=== PATIENT | female | born 1965 | race Caucasian/White ===

== ENCOUNTER → 2017-03-30 11:00 | Outpatient (CLI) | payer OTHER, SELFPAY ==
[2017-03-30 12:27] LABS: Color, Urine Yellow (Yellow); Glucose, Dipstick 1000 mg/dl (Normal); Leukocyte Esterase-Dipstick Negative /ul (Negative); Nitrite-Dipstick Negative (Negative); Occult Blood-Urine 10 /ul (Negative); Protein-Dipstick Negative (Negative); Urine Bilirubin Dipstick Negative (Negative); Urine Clarity Clear (Clear); Urine Urobilinogen Normal (Normal)
[2017-03-30 12:29] LABS: Ketone-Dipstick 150 mg/dl (Negative)
[2017-03-30 12:30] LABS: Absolute Lymphocyte Count 1.77 X10^3/ul (0.83-4.51); Absolute Neutrophil Count 6.1 X10^3/uL (2.0-7.7); Basophil# 0.07 X10^3/uL; Basophil% 0.8 % (0-1); Eosinophils% 4.4 % (0-5); Hematocrit 41.3 % (37-47); Hemoglobin 13.8 g/dl (12.0-15.0); Lymphocyte # 1.77 X10^3/ul (4.0); Lymphocyte % 19.5 % (19-41); Mean Corp Hgb Conc 33.4 g/gl (32-36); Mean Corpuscular Hgb 29.7 pg (27.0-32.0); Mean Corpuscular Volume 88.8 fL (81-99); Mean Platelet Vol. 10.5 fl (6.2-12.0); Monocyte# 0.67 X10^3/uL; Monocyte% 7.4 % (0-10); Neutrophil % 67.3 % (47-70); Platelet Count 273 K/mm3 (150-450); RBC Distribution Width CV 14.1 % (11.6-14.6); Red Blood Count 4.65 M/mm3 (4.2-5.4); White Blood Count 9.1 K/mm3 (4.4-11.0)
[2017-03-30 12:41] LABS: Hemoglobin A1c 11.8 % (4.2-6.3)
[2017-03-30 12:44] LABS: POSITIVE COUNT NO; POSITIVE DIFFERENTIAL NO; POSITIVE MORPHOLOGY NO
[2017-03-30 12:58] LABS: ALB/GLOB Ratio 0.9 RATIO (0.9-2.4); AST(SGOT) 23 U/L (15-37); Alanine Aminotransfer ALT/SGPT 44 U/L (13-56); Albumin, Serum 3.2 g/dL (3.2-5.0); Alkaline Phosphatase 127 U/L (45-117); Anion Gap 10 (5-15); BUN 15 mg/dL (7-18); BUN/Creat Ratio 24.7 RATIO (10-20); Calcium,Total 8.4 mg/dL (8.5-10.1); Chloride 96 mmol/L (98-107); Cholesterol 147 mg/dL (200); Creatinine, Serum 0.61 mg/dL (0.55-1.02); EST Glomerular Filtration Rate 110 mL/min (>60); Est Glom Filt Rate - Afr Amer 133 mL/min (>60); Globulin 3.6 g/dL (2.2-4.2); Glucose 294 mg/dL (74-106); High Density Lipoprotein 24 mg/dL; Potassium 3.8 mmol/L (3.5-5.1); Protein, Total 6.8 g/dL (6.4-8.2); Sodium Level 134 mmol/L (136-145); Triglycerides 574 mg/dL
== END ==
DX: Z00.00 Encounter for general adult medical examination without abnormal findings (principal)
CPT/HCPCS: 80053; 80061; 81002; 83036; 84443; 85025

== ENCOUNTER → 2017-04-16 12:09 | Outpatient (CLI) | payer OTHER, SELFPAY ==
--- NOTE | 2017-04-16 12:15 | US_ITS ---
STUDY: ULTRASOUND OF THE FEMALE PELVIS - COMPLETE REASON FOR EXAM: Female, 51 years old. Menorrhalgia LMP: April 09, 2017 TECHNIQUE: Transabdominal and endovaginal TECHNICAL QUALITY: Adequate. COMPARISON: None. FINDINGS: The uterus is anteverted and is in a midline position. The uterus measures 9.8 x 5.6 x 5.2 cm. Normal uterine cervix. The endometrium measures 7.4 mm in thickness, and is hyperechoic. There is no demonstrated endometrial mass. Trace lower uterine endometrial fluid. There is a probable 1.7 x 0.9 cm posterior fibroid. The patient does not have an I.U.D. The ovaries are not visualized. There is no fluid in the cul-de-sac. The pre void volume of the bladder was 155 ml. US/Transvaginal Non- IMPRESSION: Posterior small uterine fibroid. Trace lower uterine endometrial fluid. Electronically Signed: Taras Desai DO at 23:27 EDT Tel [phone], Service support ,
== END ==
DX: N92.0 Excessive and frequent menstruation with regular cycle (principal)
CPT/HCPCS: 76830

== ENCOUNTER → 2017-11-16 12:11 | Outpatient (CLI) | payer OTHER, SELFPAY ==
[2017-11-16 14:29] LABS: ALB/GLOB Ratio 0.9 RATIO (0.9-2.4); AST(SGOT) 19 U/L (15-37); Alanine Aminotransfer ALT/SGPT 44 U/L (13-56); Albumin, Serum 3.8 g/dL (3.2-5.0); Alkaline Phosphatase 81 U/L (45-117); Anion Gap 10 (5-15); BUN 16 mg/dL (7-18); BUN/Creat Ratio 20.8 RATIO (10-20); Calcium,Total 9.2 mg/dL (8.5-10.1); Chloride 105 mmol/L (98-107); Cholesterol 203 mg/dL (200); Creatinine, Serum 0.77 mg/dL (0.55-1.02); EST Glomerular Filtration Rate 84 mL/min (>60); Est Glom Filt Rate - Afr Amer 102 mL/min (>60); Globulin 4.1 g/dL (2.2-4.2); Glucose 126 mg/dL (74-106); High Density Lipoprotein 39 mg/dL; Potassium 3.7 mmol/L (3.5-5.1); Protein, Total 7.9 g/dL (6.4-8.2); Sodium Level 138 mmol/L (136-145); Triglycerides 217 mg/dL; Very Low Density Lipoprotein 43 mg/dL (5-40)
[2017-11-16 14:32] LABS: Hemoglobin A1c 6.6 % (4.2-6.3)
== END ==
PROVIDERS: Referring Provider Family Medicine; Visit Provider Family Medicine
DX: I10 Essential (primary) hypertension (principal); E11.65 Type 2 diabetes mellitus with hyperglycemia
CPT/HCPCS: 36415; 80053; 80061; 83036

== ENCOUNTER → 2017-12-12 17:04 | Outpatient (CLI) | payer OTHER, SELFPAY ==
[2017-12-12 18:19] LABS: Amphetamine Urine VISTA NEGATIVE (<1000 ng/mL); Barbiturate Urine VISTA NEGATIVE (< 200 ng/mL); Benzodiazepine Urine VISTA NEGATIVE (< 200 ng/mL); Cocaine Urine VISTA NEGATIVE (< 300 ng/mL); Ecstacy Urine VISTA NEGATIVE (< 500 ng/mL); Methadone Urine VISTA NEGATIVE (< 300 ng/mL); PCP Urine VISTA NEGATIVE (< 25 ng/mL); THC Urine VISTA NEGATIVE (< 50 ng/mL); Vista UDS pH Range 6
== END ==
PROVIDERS: Referring Provider Anesthesiology Pain Medicine; Visit Provider Anesthesiology Pain Medicine
DX: F11.20 Opioid dependence, uncomplicated (principal)
CPT/HCPCS: 80307

== ENCOUNTER → 2017-12-18 12:29 | Outpatient (CLI) | payer OTHER, SELFPAY ==
--- NOTE | 2017-12-18 12:33 | RAD_ITS ---
HISTORY: Knee pain COMPARISON: None FINDINGS: XR Knee Complete 4 Views Left knee arthroplasty with femoral and tibial components in place. A patellar prosthesis is not seen. Prosthetic components appear in good position. Normal alignment. No fracture or prosthetic loosening seen. Hypertrophic spurring of the anterior superior margin of the patella at the quadriceps insertion. RAD/Knee 4 or More Views IMPRESSION: 1. Left knee arthroplasty. No complication seen. 2. Patellar spurring. 3. No acute disease. at 0308 Reported and signed by: Manny Whitt MD Electronically Signed: Manny Whitt, at 3:06 EST Tel , Service support ,
--- NOTE | 2017-12-18 12:33 | RAD_ITS ---
STUDY: X-RAY - RIGHT KNEE REASON FOR EXAM: Female, 52 years old. Pain. TECHNIQUE: 4 view(s) of the knee. COMPARISON: None. FINDINGS: Normal visualized distal femur. Normal visualized proximal tibia and fibula. Normal proximal tibiofibular articulation. There is severe degenerative arthrosis of the medial femorotibial compartment with severe joint space narrowing. There is mild degenerative arthrosis of the lateral femorotibial compartment. There is severe degenerative arthrosis of the patellofemoral articulation. The soft tissue structures are unremarkable. RAD/Knee 4 or More Views IMPRESSION: Degenerative arthrosis. Electronically Signed: Francheska Diaz MD at 16:59 EST Tel , Service support ,
--- NOTE | 2017-12-18 12:33 | RAD_ITS ---
HISTORY: back pain, neck pain, leg pain COMPARISON: None FINDINGS: XR Spine Lumbar 3 Views: The lumbar vertebra are normal in height. No fracture or suspicious bony lesion. L4-5 and L5-S1 facet joint arthritis. Degenerative mild anterolisthesis of L4 on L5. L4-5 mild disc space narrowing. Minor endplate spurring. The SI joints appear preserved. Degenerative spondylosis of the lower dorsal spine. RAD/Lumbar Spine 2 or 3 Views IMPRESSION: 1. Lower lumbar facet joint arthritis with degenerative mild anterolisthesis of L4 on L5. 2. L4-5 early degenerative disc disease. 3. No fracture or acute disease. at 0300 Reported and signed by: Manny Whitt MD Electronically Signed: Manny Whitt, at 2:58 EST Tel , Service support ,
--- NOTE | 2017-12-18 12:33 | RAD_ITS ---
STUDY: X-RAY - THORACIC SPINE REASON FOR EXAM: Female, 52 years old. Back pain. TECHNIQUE: 3 view(s) of the thoracic spine were obtained. COMPARISON: None. FINDINGS: Normal kyphosis of the thoracic spine. There is no substantial scoliosis. There is multilevel endplate spondylosis of the thoracic vertebrae. There is multilevel disc space narrowing of the thoracic spine. The soft tissue structures are unremarkable. RAD/Thoracic Spine 3 Views IMPRESSION: Degenerative changes. Electronically Signed: Francheska Diaz MD at 16:57 EST Tel , Service support ,
--- NOTE | 2017-12-18 12:33 | RAD_ITS ---
STUDY: X-RAY - CERVICAL SPINE REASON FOR EXAM: Female, 52 years old. Pain. TECHNIQUE: 5 view(s) of the cervical spine were obtained. COMPARISON: None FINDINGS: Normal anterior atlantoaxial articulation. Normal odontoid process. Normal cervical lordosis. There is multi-level endplate spondylosis. Normal disc space heights. The soft tissue structures are unremarkable. RAD/Cerv Spine 2 or 3 Views IMPRESSION: Degenerative changes. Electronically Signed: Francheska Diaz MD at 17:02 EST Tel , Service support ,
== END ==
PROVIDERS: Referring Provider Anesthesiology Pain Medicine; Visit Provider Anesthesiology Pain Medicine
DX: M54.9 Dorsalgia, unspecified (principal); M54.2 Cervicalgia; M25.562 Pain in left knee; M25.561 Pain in right knee
CPT/HCPCS: 72040; 72072; 72100; 73564

== ENCOUNTER → 2018-02-20 15:13 | Outpatient (CLI) | payer OTHER, SELFPAY ==
[2018-02-20 16:55] LABS: Amphetamine Urine VISTA NEGATIVE (<1000 ng/mL); Barbiturate Urine VISTA NEGATIVE (< 200 ng/mL); Benzodiazepine Urine VISTA NEGATIVE (< 200 ng/mL); Cocaine Urine VISTA NEGATIVE (< 300 ng/mL); Ecstacy Urine VISTA NEGATIVE (< 500 ng/mL); Methadone Urine VISTA NEGATIVE (< 300 ng/mL); PCP Urine VISTA NEGATIVE (< 25 ng/mL); THC Urine VISTA NEGATIVE (< 50 ng/mL); Vista UDS pH Range 6
--- OUTSIDE RECORDS SUMMARY | 2018-04-27 14:31 | XMS RPT_ITS ---
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 29.7 LAB L100.1700 32-36 g/gl Normal MCHC 33.4 LAB L100.1810 11.6-14.6 % Normal RDW CV 14.1 LAB L100.1820 35.1-43.9 fl High RDW SD 45.0 LAB L100.1900 150-450 K/mm3 Normal PLT 273 LAB L100.2000 6.2-12.0 fl Normal MPV 10.5 LAB L100.2100 47-70 % Normal NEUT% 67.3 LAB L100.2200 19-41 % Normal LY% 19.5 LAB L100.2300 0-10 % Normal MONO% 7.4 LAB L100.2400 0-5 % Normal EO% 4.4 LAB L100.2500 0-1 % Normal BASO% 0.8 LAB L100.2550 0.0-0.9 % Normal IM GRAN % 0.600 Result Comment: IG% - Immature Granulocytes (promyelocytes, myelocytes and metamyelocytes) > 1% indicates that a LEFT SHIFT is Present. LAB L100.2620 2.0-7.7 X10 3/uL Normal Absolute Neut 6.1 LAB L100.2720 0.83-4.51 X10 3/ul Normal Absolute Lymph 1.77 Performed By: #### L100.0100 #### [facility] [address] [place], [address] COMPREHENSIVE METABOLIC Collected: 03/30/2017 Status: F Source: [facility] 10:22 AM [facility] REPOSITORY Order Comment: Nuria MITCHELL ORDERED CBC/CMP/TSH/A1C DR BARRERA ORDERED CBCD/CMP/UA TYPE CODE TESTS RESULT OUT OF RANGE REFERENCE UNITS LAB L501.0100 74-106 mg/dL High GLU 294 Result Comment: Glucose result greater than or equal to 200 mg/dL suggests DIABETES MELLITUS per A.D.A. criteria. Please note revised GLUCOSE reference range effective 2017. LAB L501.1000 7-18 mg/dL Normal BUN 15 LAB L501.1100 0.55-1.02 mg/dL Normal CREAT,SERUM 0.61 Result Comment: The validity of the calculated GFR AND GFRAA in patients over 70 years has not been determined. Clinical correlation is essential. LAB L501.1110 >60 mL/min Normal EST GFR 110 Result Comment: Non- GFR Calc LAB L501.1115 >60 mL/min Normal EST GFR - AA 133 Result Comment: GFR Calc LAB L501.1300 10-20 RATIO High BUN/CRE 24.7 LAB L501.1500 6.4-8.2 g/dL T Normal PROT 6.8 LAB L501.1800 3.2-5.0 g/dL Normal ALB 3.2 LAB L501.1950 2.2-4.2 g/dL Normal GLOB 3.6 LAB L501.2000 0.9-2.4 RATIO Normal A/G 0.9 LAB L501.2200 8.5-10.1 mg/dL Low CA 8.4 LAB L501.4100 15-37 U/L Normal AST 23 LAB L501.4305 45-117 U/L High ALK P 127 LAB L501.4405 13-56 U/L Normal ALT 44 Result Comment: Please note revised ALT reference range effective 2017. LAB L501.4600 0.20-1.00 mg/dL Normal T BILI 0.40 LAB L501.5300 136-145 mmol/L Low NA 134 LAB L501.5600 3.5-5.1 mmol/L Normal K 3.8 LAB L501.5900 98-107 mmol/L Low CL 96 LAB L501.6100 21.0-32.0 mmol/L Normal CO2 28.0 LAB L501.6200 5-15 Normal GAP 10 Performed By: #### L500.4050, L500.4100, L501.9520 #### [facility] [address] [place], [place], [address] LIPID PROFILE Collected: 03/30/2017 Status: F Source: [facility] 10:22 AM [facility] REPOSITORY Order Comment: Nuria MITCHELL ORDERED CBC/CMP/TSH/A1C DR BARRERA ORDERED CBCD/CMP/UA TYPE CODE TESTS RESULT OUT OF RANGE REFERENCE UNITS LAB L501.4900 200 mg/dL Normal CHOL 147 Result Comment: <200 mg/dL Desirable 200-240 mg/dL Borderline >240 mg/dL High Risk LAB L501.5000 mg/dL High TRIG 574 Result Comment: The drugs N-Acetylcysteine and Metamizole may falsely depress this assay. TRIGLYCERIDE IS GREATER THAN 400 mg/dL. LDL RESULT IS INVALID AND WILL NOT BE REPORTED. Serum Triglycerides Reference Interval Normal <150 mg/dL Borderline high 150 - 199 mg/dL High 200 - 499 mg/dL Very High > or = 500 mg/dL LAB L501.6400 mg/dL Low HDL 24 Result Comment: The drugs N-Acetylcysteine and Metamizole may falsely depress this assay. Reference Range HDL <40 mg/dL Low HDL Cholesterol HDL >or= 60 mg/dL High HDL Cholesterol LAB L501.6500 0-130 mg/dL Test Normal not performed LDL LAB L501.6600 5-40 mg/dL Test Normal not performed VLDL Performed By: #### L500.4050, L500.4100, L501.9520 #### [facility] [address] [place], [address] THYROID STIM HORMONE Collected: 03/30/2017 Status: F Source: [place] ([facility]) 10:22 AM [facility] REPOSITORY Order Comment: Nuria MITCHELL ORDERED CBC/CMP/TSH/A1C DR BARRERA ORDERED CBCD/CMP/UA TYPE CODE TESTS RESULT OUT OF RANGE REFERENCE UNITS LAB L501.9520 0.358-3.74 uIU/mL High TSH 3.80 Performed By: #### L500.4050, L500.4100, L501.9520 #### [facility] [address] [place], [address] ALLERGIES ALLERGIES DATE TYPE / CODE NAME / CODE REACTION SEVERITY SOURCE 06/30/2014 Drug morphine/F00 Other Unknown [facility] Allergy/4160 [id number]([facility] 14084(SNOMED ) Repository CT) ENCOUNTERS ENCOUNTERS ADMIT/DISCHARGE ACCOUNT ADMITTING ENCOUNTER LOCATION SOURCE NUMBER CLASS 02/25/2018 [id number] Ambulatory [place] 4 [facility] ing:PT Repository 02/20/2018 [id number] Ambulatory [place] 3 [facility] ing:LABSPEC Repository 12/18/2017 [id number] Ambulatory [place] 9 [facility] Repository 12/18/2017 [id number] Ambulatory [place] 7 [facility] ing:MTRAD Repository 12/12/2017 [id number] Ambulatory [place] 8 [facility] ing:LAB Repository 11/16/2017 [id number] Ambulatory [place] 2 [facility] ing:MTLAB Repository 08/29/2017 [id number] Ambulatory [address] Emmanuelle g:DANNY Repository 05/03/2017 [id number] Ambulatory [place] 4 [facility] ing:DC Repository 04/16/2017 [id number] Ambulatory [place] 5 [facility] ing:USHP Repository 03/30/2017 [id number] Ambulatory [place] 8 [facility] ing:MTLAB Repository PAYERS PAYERS ENCOUNTER GUARANTOR PAYER SUBSCRIBER SOURCE 02/25/2018 RICK Primary RICK [id number] Insurance:GPATPA SCHLAGENHAUSERDOB: [facility] Number: [id number] [id number] Repository [address]Xoe: [phone]) Date:[id number] [phone] (HP) [address], [place] [address]JZ: 02/25/2018 Secondary NOT GIVENUNK [place] Insurance:SELF PAY [facility] Number: Effective Repository Date:2017-12-13 02/20/2018 RICK Primary RICK [id number] Insurance:GPATPA SCHLAGENHAUSERDOB: [facility] Number: [id number], [place] [id number] Repository [address]Kwn: ([phone]) Date:3423-81-01HK [phone] () [address], [place] [address]KB: 02/20/2018 Secondary NOT GIVENUNK [place] Insurance:SELF PAY [facility] Number: Effective Repository Date:2018-02-20 12/18/2017 RICK Primary RICK [id number] Insurance:GPATPA SCHLAGENHAUSERDOB: [facility] Number: [id number], [place] [id number] Repository [address]Gph: [phone]) Date:3120-92-05IF [phone] () [address], [place] [address]TK: 12/18/2017 Secondary NOT GIVENUNK [place] Insurance:SELF PAY [facility] Number: Effective Repository Date:2017-12-18 12/18/2017 RICK Primary RICK Beasley [id number] Insurance:GPATPA SCHLAGENHAUSERDOB: [facility] Number: [id number], [place] [id number] Repository [address]Bmy: ([phone]) Date:8182-78-76MI [phone] (HP) [address], [place] [address]UW: 12/18/2017 Secondary NOT GIVENUNK [place] Insurance:SELF PAY [facility] Effective Repository Date:2017-12-18 12/12/2017 RICK Primary RICK Beasley [id number] Insurance:GPATPA SCHLAGENHAUSERDOB: [facility] Number: [id number], [place] [id number] Repository [address]Zek: ([phone]) Date:[id number] [phone] () [address], [place] [address]CZ: 12/12/2017 Secondary NOT GIVENUNK [place] Insurance:SELF PAY [facility] Number: Effective Repository Date:2017-12-12 11/16/2017 RICK Primary RICK Beasley [id number] Insurance:GPATPA SCHLAGENHAUSERDOB: [facility] Number: [id number], [place] [id number] Repository [address]Icv: ([phone]) Date:0789-40-10DG [phone] () [address], [place] [address]LA: 11/16/2017 Secondary NOT GIVENUNK [place] Insurance:SELF PAY [facility] Number: Effective Repository Date:2017-11-16 08/29/2017 LOUISE [id number] [address]Bgp: ([phone]) Number: [phone] (HP) [id number] Date: [address], [place] [address]IQ: 05/03/2017 RICK Primary RICK [id number] Insurance:GPATPA SCHLAGENHAUSERDOB: [facility] Number: [id number], [place] [id number] Repository [address]Xes: [phone]) Date:2189-31-79NN [phone] () [address], [place] [address]US: 05/03/2017 Secondary NOT GIVENUNK [place] Insurance:SELF PAY [facility] Number: Effective Repository Date:2017-04-24 04/16/2017 RICK Primary RICK [id number] Insurance:GPATPA SCHLAGENHAUSERDOB: [facility] Number: [id number], [place] [id number] Repository [address]Qsa: ([phone]) Date:1639-56-29NQ [phone] () [address], [place] [address]PB: 04/16/2017 Secondary NOT GIVENUNK [place] Insurance:SELF PAY [facility] Number: Effective Repository Date:2017-04-11 03/30/2017 RICK Primary RICK [id number] Insurance:GPATPA SCHVINCENTHAUSERDOB: [facility] Number: [id number], [place] [id number] Repository [address]Ghi: ([phone]) Date:8622-52-71FX [phone] () [address], [place] [address]UO: 03/30/2017 Secondary NOT GIVENUNK [place] Insurance:SELF PAY [facility] Number: Effective Repository Date:2017-03-30
== END ==
PROVIDERS: Referring Provider Anesthesiology Pain Medicine; Visit Provider Anesthesiology Pain Medicine
DX: F11.20 Opioid dependence, uncomplicated (principal)
CPT/HCPCS: 80307

== ENCOUNTER 2018-02-25 15:00 | Outpatient (RCR) | payer OTHER, SELFPAY ==
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
--- NOTE | 2018-04-11 11:12 | HP.PT.NRP ---
HP - Discharge Summary (1) - Patient Information LOUISE DALEY was seen in my office for initial evaluation on 02/12/18. The following Plan of Care was established for this patient: Initial Frequency: 3x /Week Initial Duration: 4-6 Weeks - Anticipated Interventions Patient/Client Instruction: Educate patient on: Condition For the Purpose of:: To decrease pain, To improve muscle performance and motor function, To increase tolerance to activity/condition/position Therapeutic Exercise to Include: Strength training, Postural training, In an aquatic setting, Dynamic Lumbar Stabilization, Scapular Strength/Stabilization For the Purpose of:: To decrease pain, To improve muscle performance and motor function, To increase tolerance to activity/condition/position, To improve ability of physical actions for home/community/work/leisure This patient was last seen in our office 02/25/18. Pertinent comments regarding their Physical therapy will appear below: Pt seen two visits of POC and neglected toa ttend any further visits. at this point, it has been over 6 weeks and i will discontinue due to nonattendance. At this point I will be discontinuing this patient from physical therapy. I would be happy to see this patient again in the future if found appropriate by the physician. Thank you! Phillip Sánchez, DPT, OCS, CSCS
== END 2018-02-25 19:00 | disposition home or self-care (01) ==
LOC: PT 15:00
PROVIDERS: Visit Provider Anesthesiology Pain Medicine
DX: M54.9 Dorsalgia, unspecified (principal); M54.2 Cervicalgia
CPT/HCPCS: 97113; 97162

== ENCOUNTER → 2018-08-10 07:54 | Outpatient (CLI) | payer OTHER, SELFPAY ==
--- NOTE | 2018-08-10 08:03 | MRI_ITS ---
STUDY: MRI CERVICAL SPINE WITHOUT CONTRAST REASON FOR EXAM: Female, 52 years old. Neck and arm pain bilaterally. No known injury. TECHNIQUE: Standardized fat and water weighted pulse sequences were obtained in the sagittal and axial planes. COMPARISON: None FINDINGS: Normal foramen magnum and brainstem-cervical cord junction. Normal craniovertebral junction. Normal anterior atlantoaxial articulation. Normal odontoid process. Straightening of the C-spine curve. Normal vertebral bodies and posterior osseous elements. C2-3: Normal endplates. Normal disc height, signal and morphology. Normal central canal and intervertebral neural foramina. C3-4: Normal endplates. Normal disc height, signal and morphology. Normal central canal and intervertebral neural foramina. C4-5: Normal endplates. Normal disc height, signal and morphology. Normal central canal and intervertebral neural foramina. C5-6: Normal endplates. Small posterior bulging disc. Normal central canal and bilateral intervertebral neural foramen. C6-7: Normal endplates. Normal disc height, signal and morphology. Normal central canal and intervertebral neural foramina. C7-T1: Normal endplates. Normal disc height, signal and morphology. Normal central canal and intervertebral neural foramina. T1-T2: (Sagittal only). Normal endplates. Normal disc height and morphology. Normal central canal and bilateral intervertebral neural foramina. T2-T3: (Sagittal only). Small right posterior paramedian disc protrusion. Normal central canal and bilateral intervertebral neural foramina. Normal cervical cord. Normal visualized soft tissue structures. MRI/Spine Cervical (Routine) IMPRESSION: 1. No MRI evidence of cervical extruded disc fragment or spinal stenosis. 2. Small C5-C6 posterior bulging disc. 3. Small right T2-3 posterior paramedian disc protrusion. 4. Normal cervical spinal cord. Electronically Signed: Greg Driscoll MD at 9:55 EDT , Service support ,
[2018-08-10 09:41] LABS: Bacteria 0 SEEN /hpf (None Seen); Mucous, Urine 0 SEEN /hpf (<or=2+); Red Blood Cells-Urine 0 SEEN /hpf (0-5); White Blood Cells 0 SEEN /hpf (0-5)
[2018-08-10 10:25] LABS: Absolute Lymphocyte Count 2.51 X10^3/ul (0.83-4.51); Absolute Neutrophil Count 5.8 X10^3/uL (2.0-7.7); Eosinophil# 0.93 X10^3/uL; Eosinophils% 9.2 % (0-5); Hematocrit 37.4 % (37-47); Lymphocyte # 2.51 X10^3/ul (4.0); Lymphocyte % 24.9 % (19-41); Mean Corp Hgb Conc 32.1 g/gl (32-36); Mean Corpuscular Hgb 28.6 pg (27.0-32.0); Mean Platelet Vol. 9.4 fl (6.2-12.0); Monocyte% 6.9 % (0-10); Neutrophil # 5.83 X10^3/uL (2.7-7.7); Neutrophil % 57.7 % (47-70); POSITIVE COUNT NO; POSITIVE DIFFERENTIAL NO; POSITIVE MORPHOLOGY NO; Platelet Count 315 K/mm3 (150-450); RBC Distribution Width CV 15.8 % (11.6-14.6); White Blood Count 10.1 K/mm3 (4.4-11.0)
[2018-08-10 10:49] LABS: Color, Urine Yellow (Yellow); Glucose, Dipstick Normal (Normal); Ketone-Dipstick Negative (Negative); Leukocyte Esterase-Dipstick Negative /ul (Negative); Nitrite-Dipstick Negative (Negative); Occult Blood-Urine 25 /ul (Negative); Protein-Dipstick Negative (Negative); Squamous Epithelial Cells - UA 0-5 SEEN /hpf (5-10); Urine Bilirubin Dipstick Negative (Negative); Urine Clarity Clear (Clear); Urine Urobilinogen Normal (Normal)
[2018-08-10 10:50] LABS: ALB/GLOB Ratio 0.9 RATIO (0.9-2.4); AST(SGOT) 19 U/L (15-37); Alanine Aminotransfer ALT/SGPT 33 U/L (13-56); Albumin, Serum 3.1 g/dL (3.2-5.0); Alkaline Phosphatase 81 U/L (45-117); Anion Gap 9 (5-15); BUN 15 mg/dL (7-18); BUN/Creat Ratio 22.2 RATIO (10-20); Calcium,Total 8.4 mg/dL (8.5-10.1); Chloride 103 mmol/L (98-107); Cholesterol 187 mg/dL (200); Creatinine, Serum 0.68 mg/dL (0.55-1.02); EST Glomerular Filtration Rate 97 mL/min (>60); Est Glom Filt Rate - Afr Amer 117 mL/min (>60); Globulin 3.5 g/dL (2.2-4.2); Glucose 112 mg/dL (74-106); High Density Lipoprotein 39 mg/dL; Potassium 3.7 mmol/L (3.5-5.1); Protein, Total 6.6 g/dL (6.4-8.2); Sodium Level 139 mmol/L (136-145); Triglycerides 218 mg/dL; Very Low Density Lipoprotein 44 mg/dL (5-40)
[2018-08-10 10:53] LABS: Hemoglobin A1c 6.4 % (4.2-6.3)
== END ==
PROVIDERS: Family Medicine; Referring Provider Anesthesiology Pain Medicine; Visit Provider Anesthesiology Pain Medicine
DX: Z00.00 Encounter for general adult medical examination without abnormal findings (principal); E11.65 Type 2 diabetes mellitus with hyperglycemia; I10 Essential (primary) hypertension; M54.2 Cervicalgia; M79.603 Pain in arm, unspecified
CPT/HCPCS: 36415; 72141; 80053; 80061; 81001; 83036; 85025

== ENCOUNTER → 2019-01-09 12:48 | Outpatient (CLI) | payer OTHER, SELFPAY ==
[2019-01-09 14:29] LABS: Amphetamine Urine VISTA NEGATIVE (<1000 ng/mL); Barbiturate Urine VISTA NEGATIVE (< 200 ng/mL); Benzodiazepine Urine VISTA NEGATIVE (< 200 ng/mL); Cocaine Urine VISTA NEGATIVE (< 300 ng/mL); Ecstacy Urine VISTA POSITIVE (< 500 ng/mL); Methadone Urine VISTA NEGATIVE (< 300 ng/mL); PCP Urine VISTA NEGATIVE (< 25 ng/mL); THC Urine VISTA NEGATIVE (< 50 ng/mL); Vista UDS pH Range 6
== END ==
PROVIDERS: Referring Provider Anesthesiology Pain Medicine; Visit Provider Anesthesiology Pain Medicine
DX: F11.20 Opioid dependence, uncomplicated (principal)
CPT/HCPCS: 80307

== ENCOUNTER → 2019-09-18 15:12 | Outpatient (CLI) | payer OTHER, SELFPAY ==
[2019-09-18 18:15] LABS: AST(SGOT) 27 U/L (15-37); Alanine Aminotransfer ALT/SGPT 43 U/L (13-56); Albumin, Serum 3.5 g/dL (3.2-5.0); Alkaline Phosphatase 98 U/L (45-117); Bilirubin, Direct 0.12 mg/dL (0.00-0.30); Cholesterol 235 mg/dL (200); Globulin 3.8 g/dL (2.2-4.2); High Density Lipoprotein 37 mg/dL; Protein, Total 7.3 g/dL (6.4-8.2); Triglycerides 325 mg/dL; Very Low Density Lipoprotein 65 mg/dL (5-40)
[2019-09-18 18:20] LABS: Hemoglobin A1c 7.4 % (3.8-5.6)
== END ==
PROVIDERS: Referring Provider Family Medicine; Visit Provider Family Medicine
DX: E11.65 Type 2 diabetes mellitus with hyperglycemia (principal); E78.5 Hyperlipidemia, unspecified
CPT/HCPCS: 36415; 80061; 80076; 83036

== ENCOUNTER 2019-11-16 17:26 | Observation (INO) | payer OTHER, SELFPAY ==
[2019-11-16] VITALS (14 sets, daily range): BP systolic 92–176; BP diastolic 64–101; PULSE 43–206; RESP 12–24; TEMP 36.4–36.6; O2SAT 96–100; BMI 64.5; BMI 63.6; BMI 63.7
[2019-11-16] MEDS: Adenosine 6 MG/2 ML Syringe IV (17:45)
--- NOTE | 2019-11-16 17:50 | EKG12_ITS ---
Test Reason : CP Blood Pressure : / mmHG Vent. Rate : 197 BPM Atrial Rate : 197 BPM P-R Int : 000 ms QRS Dur : 070 ms QT Int : 234 ms P-R-T Axes : 000 043 014 degrees QTc Int : 423 ms Supraventricular tachycardia Nonspecific ST abnormality Abnormal ECG Confirmed by REMINGTON JONES, GINA ([id number]), digital editor MINDY GUERRIER ([id number]) on 11/18/2019 12:48:47 PM Referred By: BB Confirmed By:GINA MACEDO MD
--- NOTE | 2019-11-16 17:50 | RAD_ITS ---
STUDY: X-RAY CHEST REASON FOR EXAM: Female, 53 years old. CHEST PAIN, SOB TECHNIQUE: Single AP portable view of the chest. COMPARISON: 06/30/2014. FINDINGS: The lungs are clear and expanded. There is no demonstrated pleural abnormality. Normal size heart. Normal mediastinum and hemal. Normal visualized pulmonary arteries. Normal visualized aortic arch and descending thoracic aorta. Normal visualized thoracic spine. Normal visualized ribs, clavicles, and shoulders. There is no demonstrated abnormality of the visualized soft tissue structures of the upper abdomen. RAD/Chest 1 View (Portable) IMPRESSION: Normal x-ray examination of the chest. Electronically Signed: Iam Hilliard MD at 18:39 EDT , Service support ,
--- NOTE | 2019-11-16 17:51 | ED.VIS.GEN ---
History of Present Illness Chief Complaint: Chest Pain Informant: Patient Onset: Hours - 4 Context: Sudden Onset Quality: pressure Location: substernal Current Severity: Moderate Maximum Severity: Moderate Worsened by: nothing Relieved by: nothing Associated Symptoms: lightheaded, racing HB, sob Narrative: Patient states she was getting dressed and putting on deodorant when she suddenly started feeling lightheaded and racing heartbeat, subsequently started having pressure in her chest. This is gone on for 4 hours until she got here to the ER. No recent illnesses. Never had this before, no history of heart problems. She had a colonoscopy 2 days ago that she recovered uneventfully from, she has been having intermittent hematochezia, one polyp was removed and it was otherwise unremarkable according to her. Prior similar symptoms: No Recent Illness/Hospitalization: No - Past Medical History (1) Type 2 diabetes mellitus Status: Chronic (2) Hypertension Status: Chronic (3) Fibromyalgia Status: Chronic Past Medical History - Allergies and Home Meds Allergies/Adverse Reactions: Allergies morphine Adverse Reaction (Verified 11/16/19 17:27) Other Primary Care Physician: Vincent Yepez [Primary Care Provider] - Lives: With Family Smoking Status: Former smoker Review of Systems General: Reports: Malaise. Denies: Chills, Fever, Sweats Eyes: Denies: Visual changes - bilaterally, Diplopia ENT: Denies: Rhinorrhea, Sore throat Cardiovascular: Reports: Chest pain, Palpitations, Heart racing Respiratory: Reports: Dyspnea. Denies: Cough, Dyspnea on exertion Gastrointestinal: Reports: Hematochezia - intermittently. Denies: Abdominal pain, Nausea, Vomiting, Diarrhea, Melena Genitourinary: Denies: Dysuria, Hematuria, Frequency Musculoskeletal: Denies: Neck pain, Back pain, Swelling, Extremity Pain Skin: Denies: Rash, Wounds Neurological: Denies: Headache, Weakness, Numbness Physical Exam Vital Signs/Narrative: Vital Signs Temp Pulse Resp BP Pulse Ox 11/16/19 17:27 97.5 F L 43 L 24 H 92/64 98 Inital Vital Signs reviewed: Yes General: Well nourished, Well developed, Obese, No Acute Distress - Very anxious, keenly alert. Head: Normocephalic, Atraumatic Eyes: Perrl, EOMI ENT: Moist mucous membranes, No rhinorrhea Neck: Supple, Nontender Cardiovascular: Regular rate, Regular rhythm, Tachycardia Respiratory: No distress, CTA bilaterally, Chest nontender Abdomen: Soft, Nontender, Nondistended, Normal bowel sounds Back: Nontender, Normal Inspection Extremities: Nontender, No edema. Negative for: Calf Tenderness Skin: Normal color, No rash, No Trauma Neurological: Alert, Oriented x3, Cranial nerves II-XII grossly intact, Normal Strength, Normal Sensation Psychological: Tearful - Very anxious Diagnostic/Tx/Re-eval Impressions Chest X-Ray 11/16/19 17:50 IMPRESSION: Normal x-ray examination of the chest. Electronically Signed: Iam Hilliard MD at 18:39 EDT , Service support , 11/16/19 17:50 Chest 1 View (Portable) [RAD] Stat Laboratory Results 11/16/19 11/16/19 17:45 17:45 WBC 16.8 H RBC 4.92 Hgb 14.2 Hct 44.6 MCV 90.7 MCH 28.9 MCHC 31.8 L RDW Std Deviation 48.7 H RDW Coeff of Milo 14.6 Plt Count 428 MPV 10.3 Immature Gran % (Auto) 0.500 Neut % (Auto) 66.5 Lymph % (Auto) 23.5 [place] % (Auto) 6.7 Eos % (Auto) 2.1 Baso % (Auto) 0.7 Absolute Neuts (auto) 11.2 H Absolute Lymphs (auto) 3.95 Nucleated RBC % 0 Sodium 136 Potassium 4.2 Chloride 103 Carbon Dioxide 24.0 Anion Gap 9 BUN 12 Creatinine 0.96 Estim Creat Clear Calc 63.44 Est GFR (MDRD) Af Amer 78 Est GFR (MDRD) Non-Af 65 BUN/Creatinine Ratio 12.6 Glucose 163 H Calcium 9.2 Troponin I 0.029 - Rhythm Strip Rhythm Strip: Narrow complex tachycardia/SVT Rate: 160 Ectopy: None - EKG Initial EKG Interpretation: SVT - Medical Decision Making Initially attempted a modified Valsalva maneuver, however it did not result in cardioversion. Immediately after that, adenosine 6 mg was pushed, which resulted in successful cardioversion. Patient felt much better. Her chest pain resolved without any other medications or maneuvers, and she remained clinically hemodynamically stable and asymptomatic without recurrent dysrhythmia. I discussed with cardiology, he recommended admission given the chest discomfort so cardiology consult possibly perform an echocardiogram in the morning. - Critical Care Time Critical care time (excluding procedures): 30-74 minutes - 35 minutes, not including procedures, including time spent discussing with consultants, arranging admission, discussing with patient and family Procedures Procedure(s): pharmacologic cardioversion == Adenosine 6mg IVP given, w/ immediate conversion to NSR. tolerated well. no complications. repeat EKG normal, ST low 100s. ED Disposition - Plan for ED Patient: Disposition: Acute [facility] Diagnosis: Chest pain, Supraventricular tachycardia Referrals: Vincent Yepez [Primary Care Provider] -
--- NOTE | 2019-11-16 17:54 | EKG12_ITS ---
Test Reason : POST CARDIOVERSION Blood Pressure : / mmHG Vent. Rate : 112 BPM Atrial Rate : 112 BPM P-R Int : 150 ms QRS Dur : 072 ms QT Int : 342 ms P-R-T Axes : 068 042 044 degrees QTc Int : 466 ms Sinus tachycardia Otherwise normal ECG Confirmed by REMINGTON JONES, GINA ([id number]), assistant production editor MINDY GUERRIER ([id number]) on 11/18/2019 12:49:18 PM Referred By: BB Confirmed By:GINA MACEDO MD
[2019-11-16] MEDS: 0.9% Normal Saline 1,000 ML 1000 ML IV (17:59)
[2019-11-16] MEDS: Aspirin 81 MG TAB.CHEW 324 MG PO (18:10)
[2019-11-16 18:33] LABS: Absolute Lymphocyte Count 3.95 X10^3/uL (0.83-4.51); Absolute Neutrophil Count 11.2 X10^3/uL (2.0-7.7); Basophil# 0.11 X10^3/uL; Basophil% 0.7 % (0-1); Eosinophil# 0.36 X10^3/uL; Eosinophils% 2.1 % (0-5); Hematocrit 44.6 % (37-47); Hemoglobin 14.2 g/dL (12.0-15.0); Lymphocyte # 3.95 X10^3/ul (4.0); Lymphocyte % 23.5 % (19-41); Mean Corp Hgb Conc 31.8 g/dL (32-36); Mean Corpuscular Hgb 28.9 pg (27.0-32.0); Mean Corpuscular Volume 90.7 fL (81-99); Mean Platelet Vol. 10.3 fl (6.2-12.0); Monocyte# 1.12 X10^3/uL; Monocyte% 6.7 % (0-10); NRBC Flagged by Analyzer 0 % (0-5); Neutrophil # 11.17 X10^3/uL (2.7-7.7); Neutrophil % 66.5 % (47-70); Platelet Count 428 K/mm3 (150-450); RBC Distribution Width CV 14.6 % (11.6-14.6); RBC Distribution Width SD 48.7 fl (35.1-43.9); Red Blood Count 4.92 M/mm3 (4.2-5.4); White Blood Count 16.8 K/mm3 (4.4-11.0)
[2019-11-16 18:51] LABS: Anion Gap 9 (5-15); BUN 12 mg/dL (7-18); BUN/Creat Ratio 12.6 RATIO (10-20); Calcium,Total 9.2 mg/dL (8.5-10.1); Chloride 103 mmol/L (98-107); Creatinine, Serum 0.96 mg/dL (0.55-1.02); EST Glomerular Filtration Rate 65 mL/min (>60); Est Glom Filt Rate - Afr Amer 78 mL/min (>60); Estimated Creatinine Clearance 63.44 ml/min; Glucose 163 mg/dL (74-106); Potassium 4.2 mmol/L (3.5-5.1); Sodium Level 136 mmol/L (136-145)
--- NOTE | 2019-11-16 19:51 | HP.PCM_ITS ---
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 insulin use: without senior living use Diabetes mellitus complication status: with other specified complication Qualified Code(s): E11.69 - Type 2 diabetes mellitus with other specified complication (8) Hypertension Status: Chronic Qualifiers: Hypertension type: essential hypertension Qualified Code(s): I10 - Essential (primary) hypertension (9) Fibromyalgia Status: Chronic History of Present Illness Date of Admission: 11/16/19 Chief Complaint: Chest pain, dyspnea The patient is a 53 y/o F w/ PMHx: Morbid Obesity, TAMMI, HTN, HLD, Anxiety and Depression/Agoraphobia, Asthma, Tobacco use who presents to the [facility] ED on 11/16/19 with history of onset chest pain, described as pressure/squeezing sensation, rated 9/10 in severity, noted associated lightheadedness, dizziness with sensation of racing heart. Upon ED presentation patient with SVT evident with administration of adenosine. Following conversion she noted complete resolution of her symptoms. She notes recent c-scope Sunday prior secondary to some blood with stools with polyp removed but no issues otherwise. Work-up in the ED included T 97.5, heart rate initially 43 with increased 115, BP initially 92/64 with increased 127/101, respiratory 24 with improvement 16, 90% on room air, CBC w/ WBC 16.8, Hgb 14.2, Plts 428 with L shift, BMP with glucose 162, troponin 0.029, CXR with no acute cardiopulmonary findings. In the ED patient ministered aspirin 32 4 mg p.o. x1, normal saline in addition to adenosine 6 mg IV x1. Past Medical History Past Medical History (Chronic Problems): Chronic Problems (Last Updated 12/18/17 @ 12:45 by Sasha Machado) Type 2 diabetes mellitus (Chronic) Hypertension (Chronic) Fibromyalgia (Chronic) HLD (hyperlipidemia) (Chronic) Morbid obesity (Chronic) Tobacco use (Chronic) TAMMI (obstructive sleep apnea) (Chronic) Medical History: Medical History (Last Updated 12/18/17 @ 12:45 by Sasha Machado) Allergic rhinitis J30.9 Bronchitis J40 Hyperlipidemia E78.5 Hypertension I10 Morbid obesity E66.01 Osteoporosis M81.0 Pneumonia J18.9 Sleep apnea G47.30 Snoring R06.83 Somnolence R40.0 Agoraphobia F40.00 Anxiety F41.9 Asthma J45.909 Depression F32.9 Fibromyalgia M79.7 Allergies morphine Adverse Reaction (Verified 11/16/19 17:27) Other Home Medications: Ambulatory Orders Medication Instructions Recorded Budesonide/Formoterol 160/4.5 2 puff INHALATION BID 06/30/14 [Symbicort 160/4.5 Mcg Inhaler (SP)] Dextroamphetamine/Amphetamine 20 mg PO DAILY 06/30/14 [Dextroamp-Amphetamin 20 mg Tab] Hydrochlorothiazide [Hctz] 25 mg PO DAILY #30 tablet 06/30/14 Albuterol IH (ProAir) [Proair Hfa 1 - 2 puff INHALATION Q4H PRN PRN 11/16/19 (SP)Vent Pts] Clonazepam 0.5 mg PO PRN PRN 11/16/19 Duloxetine HCl 90 mg PO DAILY 11/16/19 traMADol [Ultram (G)] 50 mg PO Q4H PRN PRN 11/16/19 Surgical History: Surgical History (Last Updated 12/18/17 @ 12:48 by Sasha Machado) History of delivery Z98.891 History of left knee replacement Z96.652 History of tonsillectomy Z90.89 Surgical History: - - x2, tonsillectomy, left total knee replacement. 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 Tobacco Use: Cigarettes Alcohol: None Drugs: None - *Family History Maternal Family History: Family History (Last Updated 12/18/17 @ 12:51 by Sasha Machado) Father Diabetes Colon cancer Cancer Mother Hypertension Arthritis Mental disorder History Items: Hypertension Paternal Family History: Family History (Last Updated 12/18/17 @ 12:51 by Sasha Machado) Father Diabetes Colon cancer Cancer Mother Hypertension Arthritis Mental disorder History Items: Cancer - History of colon cancer eventually metastatic to the liver., Diabetes Review of Systems Constitutional: Reports: Malaise, Weakness, Fatigue. Denies: Anorexia, Chills, Fever, Weight Change HEENT: Denies: Head Aches, Sinus Congestion, Sinus Drainage Cardiovascular: Reports: Chest Pain, Chest Pressure, Light Headedness, Palpitations. Denies: Chest Tightness, Orthopnea, Syncope Respiratory: Reports: Shortness of Breath. Denies: Cough, Shortness of breath at rest, Shortness of breath upon exertion, Sputum production Gastrointestinal: Denies: Abdominal Pain, Nausea, Vomiting Genitourinary: Denies: Dysuria Musculoskeletal: Reports: Back Pain, Joint Pain. Denies: Joint Tenderness Skin: Denies: Rash, Wounds Neurological: Denies: Numbness, Tingling, Focal weakness Psychiatric: Reports: Anxiety, Depression. Denies: Homicidal Ideations, Suicidal Ideations Hematologic/ Lymphatic: Denies: Easy Bruising, Easy Bleeding VTE Information - Inpt Only VTE Present on Admission: No VTE Mechan Device Prophylaxis: SCD's VTE Pharm Prophylaxis ordered?: Yes Patient Problems: Active and Suspected Problems (Last Updated 12/18/17 @ 12:45 by Sasha Machado) Chest pain (Acute) Supraventricular tachycardia (Acute) Subjective: Seated upright in the ED bed, mildly fatigued appearance otherwise no acute distress, notes complete resolution of prior chest pain, lightheadedness, dizziness and palpitations. Objective: Physical Examination: General: awake, alert, oriented x 3 and cooperative, seated upright in ED bed in no apparent distress, notes complete resolution of symptoms. Skin: normal color, turgor, no icterus, cyanosis. HEENT: AT/NC, EOMI, PERRLA, mildly dry MM, no carotid bruits or JVD noted; however, habitus makes examination difficult with thickened neck. Lungs: CTA bilaterally, moderate effort, moderate decrease BL bases, no rales, ronchi or wheezing. Heart: Currently regular rate and rhythm; no gallop, rub audible. Abdomen: soft, morbidly obese, NTTP, ND, normal BS, no obvious HSM however habitus makes examination difficult. Extremities: no cyanosis, clubbing, or edema. Neurological: patient awake, alert, oriented x 3; cognitive function intact; pupils equally reactive to light and accomodation; cranial nerves II-XII grossly normal, moving all 4 extremities, no focal deficits, strength mildly global decrease given acute presentation. Psychiatric: affect appears fatigued otherwise normal, no acute evidence of depressive or anxiety feelings. - Physical Exam Vitals/I&O's: Vital Signs Temp Pulse Resp BP Pulse Ox 97.5 F L 101 H 16 127/101 H 97 11/16/19 17:27 11/16/19 19:21 11/16/19 19:21 11/16/19 19:21 11/16/19 19:21 Oxygen Flow Rate (L/min) 2 Oxygen Delivery Method Nasal Cannula Weight: 400 lb Body Mass Index (BMI) 64.5 Intake and Output for Last 24 Hours 11/14/19 11/15/19 11/16/19 23:59 23:59 23:59 Intake Total 1000 / 1000 Balance 1000 / 1000 Laboratory Results 11/16/19 17:45: WBC 16.8 H, RBC 4.92, Hgb 14.2, Hct 44.6, MCV 90.7, MCH 28.9, MCHC 31.8 L, RDW Std Deviation 48.7 H, RDW Coeff of Milo 14.6, Plt Count 428, MPV 10.3, Immature Gran % (Auto) 0.500, Neut % (Auto) 66.5, Lymph % (Auto) 23.5, [place] % (Auto) 6.7, Eos % (Auto) 2.1, Baso % (Auto) 0.7, Absolute Neuts (auto) 11.2 H, Absolute Lymphs (auto) 3.95, Nucleated RBC % 0 11/16/19 17:45: Sodium 136, Potassium 4.2, Chloride 103, Carbon Dioxide 24.0, Anion Gap 9, BUN 12, Creatinine 0.96, Estim Creat Clear Calc 63.44, Est GFR (MDRD) Af Amer 78, Est GFR (MDRD) Non-Af 65, BUN/Creatinine Ratio 12.6, Glucose 163 H, Calcium 9.2, Troponin I 0.029 Assessment/Plan All Active Problems (Last Updated 12/18/17 @ 12:45 by Sasha Jeannette) Chest pain (Acute) Supraventricular tachycardia (Acute) The patient is a 53 y/o F w/ PMHx: Morbid Obesity, TAMMI, HTN, HLD, Anxiety and Depression/Agoraphobia, Asthma, Tobacco use who presents to the [facility] ED on 11/16/19 with history of onset chest pain, described as pressure/squeezing sensation, rated 9/10 in severity, noted associated lightheadedness, dizziness with sensation of racing heart. 1. Chest Pain with SVT, Converted: Initial presentation with SVT, converted with adenosine administration, follow-up EKG in ED SR without acute evidence of ischemia, CXR w/ no acute cardiopulmonary findings, initial trop 0.029. Will admit to PCU, place on a monitored bed to assure no acute myocardial infarction with serial cardiac enzymes and EKGs. Cardiology consulted per ED and requested stress ECHO be ordered. FLP in AM. Mag pending. TSH pending. ASA, NG. 2. Leukocytosis, Unclear Etiology: CBC w/ WBC 16.8 with L shift, unclear etiology, possibly reactive. Remains afebrile, hydration overnight with repeat CBC in AM. 3. Diabetes mellitus type II w/ Hyperglycemia: Admission glucose 163, HgbA1c pending, hold oral regimen, will maintain on ADA diet, accu checks with ISS, nutrition consulted for education and teaching. 4. Chronic Asthma: Will maintain on home inhaler regimen, PRN albuterol, encourage HOB, IS. 5. Hypertension: Continue home regimen including HCTZ, ? lisinopril (clarifying list), may consider BB following stress testing, PRN hydralazine. 6. Hyperlipidemia: Continue low dose statin, FLP in AM. 7. Morbid Obesity: Weight loss and lifestyle changes encouraged, nutrition consulted. 8. Anxiety and Depression/Agoraphobia: Will continue home regimen clonazepam, cymbalta and buproprion. 9. Tobacco Abuse: Encouraged cessation, inpatient consultation per RT, NR if desired. 10. TAMMI: BiPAP q HS. 11. DVT prophylaxis: SCDs, lovenox. OBSV E&M: 36847 Initial observation care L3
--- NOTE | 2019-11-16 20:57 | EKG12_ITS ---
Test Reason : CP Blood Pressure : / mmHG Vent. Rate : 088 BPM Atrial Rate : 088 BPM P-R Int : 150 ms QRS Dur : 076 ms QT Int : 392 ms P-R-T Axes : 061 026 038 degrees QTc Int : 474 ms Normal sinus rhythm Normal ECG Confirmed by REMINGTON JONES, GINA ([id number]), assignment editor RAQUEL GILL ([id number]) on 11/20/2019 10:30:23 AM Referred By: AKUA CHAVEZ Confirmed By:GINA MACEDO MD
[2019-11-16] MEDS: Acetaminophen 325 MG Tablet 650 MG PO (21:09)
[2019-11-16 21:40] LABS: Hemoglobin A1c 7.2 % (3.8-5.6)
[2019-11-16] MEDS: 0.9% Normal Saline 1,000 ML 100 ML IV (21:41)
[2019-11-16 21:42] LABS: Magnesium 1.9 mg/dL (1.6-2.6); T4 Free Direct 0.91 ng/dL (0.76-1.46); Thyroid Stim Hormone (TSH) 3.34 uIU/mL (0.358-3.74)
[2019-11-16] MEDS: 0.9% Saline Lock 10 ML Syringe IV (21:42)
[2019-11-16] MEDS: Famotidine 20 MG Tablet PO (21:42)
[2019-11-16 21:51] LABS: Bedside Glucose 126 mg/dL (70-110)
[2019-11-16] MEDS: clonazePAM 0.5 MG Tablet PO (23:18)
[2019-11-17] VITALS (7 sets, daily range): BP systolic 103–137; BP diastolic 45–70; PULSE 76–89; RESP 16–20; TEMP 36.5–36.6; O2SAT 96–100
[2019-11-17] MEDS: traMADol 50 MG Tablet PO ×2 (00:29→12:23)
[2019-11-17 04:16] LABS: Absolute Lymphocyte Count 2.73 X10^3/uL (0.83-4.51); Absolute Neutrophil Count 5.9 X10^3/uL (2.0-7.7); Basophil# 0.09 X10^3/uL; Basophil% 0.9 % (0-1); Eosinophil# 0.33 X10^3/uL; Eosinophils% 3.4 % (0-5); Hematocrit 39.1 % (37-47); Hemoglobin 12.3 g/dL (12.0-15.0); Lymphocyte # 2.73 X10^3/ul (4.0); Lymphocyte % 27.8 % (19-41); Mean Corp Hgb Conc 31.5 g/dL (32-36); Mean Corpuscular Hgb 29.2 pg (27.0-32.0); Mean Corpuscular Volume 92.9 fL (81-99); Mean Platelet Vol. 9.6 fl (6.2-12.0); Monocyte# 0.71 X10^3/uL; Monocyte% 7.2 % (0-10); NRBC Flagged by Analyzer 0 % (0-5); Neutrophil # 5.91 X10^3/uL (2.7-7.7); Neutrophil % 60.1 % (47-70); Platelet Count 300 K/mm3 (150-450); RBC Distribution Width CV 14.7 % (11.6-14.6); Red Blood Count 4.21 M/mm3 (4.2-5.4); White Blood Count 9.8 K/mm3 (4.4-11.0)
[2019-11-17 04:36] LABS: ALB/GLOB Ratio 0.8 RATIO (0.9-2.4); AST(SGOT) 19 U/L (15-37); Alanine Aminotransfer ALT/SGPT 33 U/L (13-56); Albumin, Serum 2.9 g/dL (3.2-5.0); Alkaline Phosphatase 89 U/L (45-117); Anion Gap 7 (5-15); BUN 12 mg/dL (7-18); BUN/Creat Ratio 16.3 RATIO (10-20); Calcium,Total 8.4 mg/dL (8.5-10.1); Chloride 104 mmol/L (98-107); Cholesterol 150 mg/dL (200); Creatinine, Serum 0.74 mg/dL (0.55-1.02); EST Glomerular Filtration Rate 87 mL/min (>60); Est Glom Filt Rate - Afr Amer 106 mL/min (>60); Estimated Creatinine Clearance 82.31 ml/min; Globulin 3.5 g/dL (2.2-4.2); Glucose 118 mg/dL (74-106); High Density Lipoprotein 41 mg/dL; Potassium 3.4 mmol/L (3.5-5.1); Protein, Total 6.4 g/dL (6.4-8.2); Sodium Level 136 mmol/L (136-145); Triglycerides 158 mg/dL; Very Low Density Lipoprotein 32 mg/dL (5-40)
--- NOTE | 2019-11-17 05:55 | EKG12_ITS ---
Test Reason : AM EKG Blood Pressure : / mmHG Vent. Rate : 081 BPM Atrial Rate : 081 BPM P-R Int : 158 ms QRS Dur : 082 ms QT Int : 420 ms P-R-T Axes : 056 022 043 degrees QTc Int : 487 ms Normal sinus rhythm Prolonged QT Abnormal ECG When compared with ECG of 16-NOV-2019 21:45, MANUAL COMPARISON REQUIRED, DATA IS UNCONFIRMED Confirmed by MAULIK JONES, KWAKU ([id number]), health editor RAQUEL GILL ([id number]) on 11/19/2019 11:21:29 AM Referred By: DR LIZARRAGA Confirmed By:CAROLYN WILLINGHAM MD
[2019-11-17] MEDS: 0.9% Normal Saline 1,000 ML 100 ML IV (06:06)
[2019-11-17] MEDS: Aspirin E.C. 81 MG Tablet PO (06:06)
[2019-11-17 06:15] LABS: Bedside Glucose 100 mg/dL (70-110)
[2019-11-17] MEDS: Budesonide Respules 0.5 MG/2 ML AMPUL.NEB. INHALATION (07:00)
[2019-11-17] MEDS: hydroCHLOROthiazide 25 MG Tablet PO (09:51)
[2019-11-17] MEDS: DULoxetine Hcl 30 MG Capsule 90 MG PO (09:51)
[2019-11-17] MEDS: Famotidine 20 MG Tablet PO (09:51)
[2019-11-17 10:10] LABS: Bedside Glucose 140 mg/dL (70-110)
--- NOTE | 2019-11-17 11:35 | PCM.DC ---
- Discharge Diagnoses Current Active Problems: Current Active and Chronic Problems (Last Updated 12/18/17 @ 12:45 by Sasha Machado) Chest pain (Acute) Supraventricular tachycardia (Acute) HLD (hyperlipidemia) (Chronic) Morbid obesity (Chronic) Tobacco use (Chronic) TAMMI (obstructive sleep apnea) (Chronic) You will use the following diet at home:: Calorie/Carbohydrate Controlled (specify 1200, 1400, etc) - 1800 ADA diet, Cardiac Your food should be the consistency of: Regular Discharge Activity: May Not Drive Weight Bearing Status: Weight bearing as tolerated Call your doctor if you observe: Fever of 101 or Higher, Change in Color, Inability to urinate, Inability to have a bowel movement, Shortness of breath, Dizziness, Fainting spells, Swelling in the ankles, Chest pain, Prolonged hiccoughing, Increased palpitations (irregular heartbeat), Calf discomfort, Uncontrolled pain Allergies/Adverse Reactions: Allergies morphine Adverse Reaction (Verified 11/16/19 17:27) Other Medications to take at Discharge Budesonide/Formoterol 160/4.5 [Symbicort 160/4.5 Mcg Inhaler (SP)] 2 puff INHALATION BID 06/30/14 Hydrochlorothiazide [Hctz] 25 mg PO DAILY #30 tablet 06/30/14 Albuterol IH (ProAir) [Proair Hfa] 1 - 2 puff INHALATION Q4H PRN PRN 11/16/19 Clonazepam 0.5 mg PO TID PRN 11/16/19 Duloxetine HCl 90 mg PO DAILY 11/16/19 Glimepiride 11/16/19 Metformin HCl 500 mg PO BID 11/16/19 traMADol [Ultram] 50 mg PO Q4H PRN PRN 11/16/19 Lisinopril [Zestril] 15 mg PO DAILY #0 11/17/19 Metoprolol Tartrate 25 mg PO BID #60 tab 11/17/19 The following prescriptions were given: Metoprolol Tartrate 25 mg PO BID #60 tab Transmission Status: Pending to [facility] Primary Care Physician: Vincent Yepez [Primary Care Provider] - Please follow up with your Primary Care Physician in: in 2 weeks Test Results: Test results from this visit will be discussed in further detail at your follow-up appointment, if applicable. Please Follow Up With: Santosh Asher MD When: in 2 weeks to schedule Lexiscan stress test and 2D ECHO
--- NOTE | 2019-11-17 12:00 | DS.PCM_ITS ---
Discharge Date and Diagnosis - Problem List Patient Problems: Active and Suspected Problems (Last Updated 12/18/17 @ 12:45 by Sasha Machado) Chest pain (Acute) Supraventricular tachycardia (Acute) Date of Admission: 11/16/19 Date of Discharge: 11/17/19 - Primary Discharge Diagnosis Acute Problems: Active Problems (Last Updated 12/18/17 @ 12:45 by Sasha Machado) Chest pain (Acute) Supraventricular tachycardia (Acute) Non-STEMI ruled out. - Secondary Discharge Diagnosis Chronic Problems: Chronic Problems (Last Updated 12/18/17 @ 12:45 by Sasha Machado) Type 2 diabetes mellitus (Chronic) Hypertension (Chronic) Fibromyalgia (Chronic) HLD (hyperlipidemia) (Chronic) Morbid obesity (Chronic) Tobacco use (Chronic) TAMMI (obstructive sleep apnea) (Chronic) Hospital Course and Treatment Imaging Results: 11/17/19 05:55 Stress Test Echo W/Contrast [ECHO] AM (NON MEDS) Summary of Care Provided: The patient is a 53 year old F with history of obstructive sleep apnea, fibromyalgia and morbid obesity came to ED with sudden onset of dizziness lightheadedness, fast heartbeat and chest pain consistent with SVT. SVT was converted to sinus rhythm after 6 mg of IV adenosine. Patient remained chest pain-free in PCU. Serial troponins showed 0.029, 0.211 and 0.166. Follow-up EKG showed sinus rhythm with no acute evidence of ST-T changes. nurse monitoring shows sinus rhythm with occasional PVCs. Art Objects Salesperson was consulted and advised metoprolol 25 mg p.o. twice daily. Patient is advised outpatient Phillip iscan stress test and 2D echo. Follow-up with rip/mould operator in 2 weeks. She has other comorbidities of diabetes mellitus type 2, chronic stable asthma, hypertension, dyslipidemia, morbid obesity, anxiety depression and fibromyalgia and chronic smoking and obstructive sleep apnea. These are on baseline is stable. Patient also had leukocytosis but no signs and symptoms of infection or sepsis. [] Discharge medication reconciliation done. Discharge follow-up instructions completed. Discharge process discussed with the patient and all questions were answered to patient's satisfaction. Total time spent, exact 35 minutes on discharge meds reconciliation, examination, coordination of care with nurses and ancillary staff, review of imaging and blood test and discussion with the patient on follow-up instructions Patient Problems: Active and Suspected Problems (Last Updated 12/18/17 @ 12:45 by Sasha Machado) Chest pain (Acute) Supraventricular tachycardia (Acute) Objective: Seen and examined. Patient was admitted with Sudden onset of lightheadedness and dizziness with sensation of racing heartbeat. After that she started having chest pressure, squeezing in sensation and found to be PSVT which converted with the dose of 6 mg redness in ED. Prior to that patient has colonoscopy with polypectomy on Sunday prior to admission and had some residual rectal blood. In the morning, patient heart rate is controlled 86 but remained. Chest pain is resolved. nurse monitoring sinus rhythm with PVCs. In automatic lathe setter it was sinus tachycardia which is resolved. Physical exam General: Alert, Oriented x3, Cooperative HEENT: Atraumatic, PERRLA, EOMI, Normocephalic Oral: No Gingival or Mucosal Lesions/ Ulcerations Neck: Supple, No JVD, Negative Carotid Bruits Lungs: Air entry diminished in bilateral lung bases. No crepitation/rhonchi Cardiovascular: Regular rate, Regular Rhythm, Normal S1, Normal S2, No murmurs. nurse monitoring shows occasional PVCs. Abdomen: Bowel Sounds Present, Soft, Non Tender, Non-Distended : No renal angle tenderness. No suprapubic tenderness. Extremities: No edema, Capillary Refill Less than 3 Seconds Skin: No rashes, No breakdown Musculoskeletal: No Tenderness to Palpation of Joints or Extremities Neurological: Cranial nerves II-XII grossly intact, Deep Tendon Reflexes 2+/4 and Symmetrical, Neuro grossly intact Psych/Mental Status: Normal Affect, Appropriate. - Physical Exam Vitals/I&O's: Vital Signs Temp Pulse Resp BP Pulse Ox 97.7 F L 86 18 119/64 100 11/17/19 09:49 11/17/19 09:49 11/17/19 09:49 11/17/19 09:49 11/17/19 09:49 Oxygen Flow Rate (L/min) 2 Oxygen Delivery Method Room Air Weight: 394 lb 10.039 oz Body Mass Index (BMI) 63.6 Intake and Output for Last 24 Hours 11/15/19 11/16/19 11/17/19 23:59 23:59 23:59 Intake Total 1000 / 1220 1061.67 / 1061.67 Balance 1000 / 1220 1061.67 / 1061.67 Laboratory Results 11/16/19 17:45: WBC 16.8 H, RBC 4.92, Hgb 14.2, Hct 44.6, MCV 90.7, MCH 28.9, MCHC 31.8 L, RDW Std Deviation 48.7 H, RDW Coeff of Milo 14.6, Plt Count 428, MPV 10.3, Immature Gran % (Auto) 0.500, Neut % (Auto) 66.5, Lymph % (Auto) 23.5, [place] % (Auto) 6.7, Eos % (Auto) 2.1, Baso % (Auto) 0.7, Absolute Neuts (auto) 11.2 H, Absolute Lymphs (auto) 3.95, Nucleated RBC % 0 11/16/19 17:45: Sodium 136, Potassium 4.2, Chloride 103, Carbon Dioxide 24.0, Anion Gap 9, BUN 12, Creatinine 0.96, Estim Creat Clear Calc 63.44, Est GFR (MDRD) Af Amer 78, Est GFR (MDRD) Non-Af 65, BUN/Creatinine Ratio 12.6, Glucose 163 H, Calcium 9.2, Troponin I 0.029 11/16/19 17:45: Magnesium 1.9, TSH 3.34, Free T4 0.91 11/16/19 17:45: Hemoglobin A1c 7.2 H 11/16/19 21:25: POC Glucose 126 H 11/16/19 21:38: Troponin I 0.211 H 11/17/19 00:32: Troponin I 0.235 H 11/17/19 03:56: WBC 9.8, RBC 4.21, Hgb 12.3, Hct 39.1, MCV 92.9, MCH 29.2, MCHC 31.5 L, RDW Std Deviation 50.0 H, RDW Coeff of Milo 14.7 H, Plt Count 300, MPV 9.6, Immature Gran % (Auto) 0.600, Neut % (Auto) 60.1, Lymph % (Auto) 27.8, [place] % (Auto) 7.2, Eos % (Auto) 3.4, Baso % (Auto) 0.9, Absolute Neuts (auto) 5.9, Absolute Lymphs (auto) 2.73, Nucleated RBC % 0 11/17/19 03:56: Sodium 136, Potassium 3.4 L, Chloride 104, Carbon Dioxide 25.0, Anion Gap 7, BUN 12, Creatinine 0.74, Estim Creat Clear Calc 82.31, Est GFR (MDRD) Af Amer 106, Est GFR (MDRD) Non-Af 87, BUN/Creatinine Ratio 16.3, Glucose 118 H, Calcium 8.4 L, Total Bilirubin 0.30, AST 19, ALT 33, Alkaline Phosphatase 89, Troponin I 0.166 H, Total Protein 6.4, Albumin 2.9 L, Globulin 3.5, Albumin/Globulin Ratio 0.8 L, Triglycerides 158, Cholesterol 150, LDL Cholesterol 77, VLDL Cholesterol 32, HDL Cholesterol 41 11/17/19 06:04: POC Glucose 100 11/17/19 10:03: POC Glucose 140 H Current Medications Acetaminophen (Tylenol) 650 mg PO Q6H PRN PRN PRN Reason: Pain Score 1-10/Temp > 100.7 F Last Admin: 11/16/19 21:09 Dose: 650 mg Documented by: Adenosine (Adenocard) 6 mg IV X1 PRN PRN Reason: recurrent sustained SVT Al Hydroxide/Mg Hydroxide (Mylanta Ii) 30 ml PO Q6H PRN PRN PRN Reason: Gastric Burning Albuterol Sulfate (Ventolin Aerosols) 2.5 mg INHALATION Q2H PRN PRN PRN Reason: Dyspnea, wheezing Aspirin (Ecotrin) 81 mg PO DAILY@0800 [facility] Last Admin: 11/17/19 06:06 Dose: 81 mg Documented by: Budesonide (Pulmicort Aerosol) 0.5 mg INHALATION Q12H.RT [facility] Last Admin: 11/17/19 07:00 Dose: 0.5 mg Documented by: Clonazepam (Klonopin) 0.5 mg PO TID PRN PRN PRN Reason: ANXIETY Last Admin: 11/16/19 23:18 Dose: 0.5 mg Documented by: Duloxetine HCl (Cymbalta) 90 mg PO DAILY [facility] Last Admin: 11/17/19 09:51 Dose: 90 mg Documented by: Famotidine (Pepcid) 20 mg PO BID [facility] Last Admin: 11/17/19 09:51 Dose: 20 mg Documented by: Guaifenesin (Robitussin) 20 ml PO Q4H PRN PRN PRN Reason: COUGH Hydrochlorothiazide (Hctz) 25 mg PO DAILY [facility] Last Admin: 11/17/19 09:51 Dose: 25 mg Documented by: Sodium Chloride () 1,000 mls @ 100 mls/hr IV .Q10H [facility] Last Admin: 11/17/19 06:06 Dose: 100 mls/hr Documented by: Insulin Human Lispro (Humalog Kwikpen (Bkc)) 0 unit SC ACHS [facility], [facility]; Protocol Last Admin: 11/17/19 10:32 Dose: Not Given Documented by: Magnesium Hydroxide (Milk Of Magnesia) 30 ml PO DAILY PRN PRN PRN Reason: Constipation Melatonin (Melatonin) 3 mg PO QHS PRN PRN PRN Reason: INSOMNIA Nitroglycerin (Nitrostat) 0.4 mg SUBLINGUAL Q5M PRN PRN Reason: CARDIAC/CHEST PAIN Ondansetron HCl (Zofran) 4 mg IV Q8H PRN PRN PRN Reason: NAUSEA/VOMITING Psyllium Hydrophilic Mucilloid (Metamucil) 1 packet PO DAILY PRN PRN PRN Reason: Constipation Senna/Docusate Sodium (Senokot-S, Isabela-Colace) 2 tablet PO BID PRN PRN PRN Reason: Constipation Sodium Chloride () 10 - 40 ml IV UD PRN PRN Reason: SALINE FLUSH Last Admin: 11/16/19 21:42 Dose: 10 ml Documented by: Throat Lozenges (Cepacol Sore Throat Lozenge) 1 lozenge MUCOUS MEM Q2H PRN PRN PRN Reason: SORE THROAT Tramadol HCl (Ultram) 50 mg PO Q4H PRN PRN PRN Reason: Pain 1-10 or Fever Last Admin: 11/17/19 00:29 Dose: 50 mg Documented by: Home Medications: Medications to take at Discharge Budesonide/Formoterol 160/4.5 [Symbicort 160/4.5 Mcg Inhaler (SP)] 2 puff INHALATION BID 06/30/14 Hydrochlorothiazide [Hctz] 25 mg PO DAILY #30 tablet 06/30/14 Albuterol IH (ProAir) [Proair Hfa] 1 - 2 puff INHALATION Q4H PRN PRN 11/16/19 Clonazepam 0.5 mg PO TID PRN 11/16/19 Duloxetine HCl 90 mg PO DAILY 11/16/19 Glimepiride 11/16/19 Metformin HCl 500 mg PO BID 11/16/19 traMADol [Ultram] 50 mg PO Q4H PRN PRN 11/16/19 Lisinopril [Zestril] 15 mg PO DAILY #0 11/17/19 Metoprolol Tartrate 25 mg PO BID #60 tab 11/17/19 Following Prescriptions Were Given to Patient: Metoprolol Tartrate 25 mg PO BID #60 tab Transmission Status: Received by [facility] Primary Care Physician: Vincent Yepez [Primary Care Provider] - Medical Necessity - Tobacco Use Smoking Status: Current every day smoker Tobacco Use: Cigarettes Meaningful Use Info Meaningful Use Diagnoses (Choose all that apply): None applicable OBSV E&M: 04389 Observation care discharge
[2019-11-17] MEDS: Metoprolol Tartrate 25 MG Tablet PO (14:49)
--- NOTE | 2019-11-17 15:46 | CON.PCM_ITS ---
Reason for Consult Date of Consultation: 11/17/19 Reason for Consultation: SVT, chest pain History of Present Illness: The patient is a 53 y/o F w/ PMHx: Morbid Obesity, TAMMI, HTN, HLD, Anxiety and Depression/Agoraphobia, Asthma, Tobacco use who presents to the [facility] ED on 11/16/19 with history of onset chest pain, described as pressure/squeezing sensation, rated 9/10 in severity, noted associated lightheadedness, dizziness with sensation of racing heart. Upon ED presentation patient with SVT evident with administration of adenosine. Following conversion she noted complete resolution of her symptoms. She notes recent c-scope Sunday prior secondary to some blood with stools with polyp removed but no issues otherwise. Work-up in the ED included T 97.5, heart rate initially 43 with increased 115, BP initially 92/64 with increased 127/101, respiratory 24 with improvement 16, 90% on room ai r, CBC w/ WBC 16.8, Hgb 14.2, Plts 428 with L shift, BMP with glucose 162, troponin 0.029, CXR with no acute cardiopulmonary findings. In the ED patient ministered aspirin 32 4 mg p.o. x1, normal saline in addition to adenosine 6 mg IV x1. Review of systems: All systems reviewed. All else is negative except that in HPI Past Medical History Allergies/Adverse Reactions: Allergies morphine Adverse Reaction (Verified 11/16/19 17:27) Other Home Medications: Ambulatory Orders Medication Instructions Recorded Budesonide/Formoterol 160/4.5 2 puff INHALATION BID 06/30/14 [Symbicort 160/4.5 Mcg Inhaler (SP)] Hydrochlorothiazide [Hctz] 25 mg PO DAILY #30 tablet 06/30/14 Albuterol IH (ProAir) [Proair Hfa] 1 - 2 puff INHALATION Q4H PRN PRN 11/16/19 Clonazepam 0.5 mg PO TID PRN 11/16/19 Duloxetine HCl 90 mg PO DAILY 11/16/19 Glimepiride 11/16/19 Metformin HCl 500 mg PO BID 11/16/19 traMADol [Ultram] 50 mg PO Q4H PRN PRN 11/16/19 Lisinopril [Zestril] 15 mg PO DAILY #0 10/12/20 Metoprolol Tartrate 25 mg PO BID #60 tab 11/17/19 Past Medical History (Chronic Problems): Chronic Problems (Last Updated 12/18/17 @ 12:45 by Sasha Machado) Type 2 diabetes mellitus (Chronic) Hypertension (Chronic) Fibromyalgia (Chronic) HLD (hyperlipidemia) (Chronic) Morbid obesity (Chronic) Tobacco use (Chronic) TAMMI (obstructive sleep apnea) (Chronic) Surgical History: - - x2, tonsillectomy, left total knee replacement. Psychiatric History: Anxiety, Depression RIP TAILER History: No pertinent RIP TAILER history - *Family History Maternal Family History: Family History (Last Updated 12/18/17 @ 12:51 by Sasha Machado) Father Diabetes Colon cancer Cancer Mother Hypertension Arthritis Mental disorder History Items: Hypertension Paternal Family History: Family History (Last Updated 12/18/17 @ 12:51 by Sasha Machado) Father Diabetes Colon cancer Cancer Mother Hypertension Arthritis Mental disorder History Items: Cancer - History of colon cancer eventually metastatic to the liver., Diabetes Lives: Spouse/ Significant Other, With Family Smoking Status: Current every day smoker Tobacco Use: Cigarettes Alcohol: None Drugs: None Objective: Vital Signs Temp Pulse Resp BP Pulse Ox 97.7 F L 89 18 118/45 L 100 11/17/19 09:49 11/17/19 14:49 11/17/19 09:49 11/17/19 14:49 11/17/19 09:49 Oxygen Flow Rate (L/min) 2 Oxygen Delivery Method Room Air Weight: 394 lb 10.039 oz Body Mass Index (BMI) 63.6 Intake and Output for Last 24 Hours 11/15/19 11/16/19 11/17/19 23:59 23:59 23:59 Intake Total 1000 / 1220 1461.67 / 1461.67 Balance 1000 / 1220 1461.67 / 1461.67 General: Awake, Alert, Oriented x 3 HEENT: Atraumatic Oral: Moist Mucosa Neck: Supple Cardiovascular: Regular Rhythm Skin: No Rashes Psych/Mental Status: Appropriate 11/16/19 17:45: WBC 16.8 H, RBC 4.92, Hgb 14.2, Hct 44.6, MCV 90.7, MCH 28.9, MCHC 31.8 L, Plt Count 428, MPV 10.3, Immature Gran % (Auto) 0.500, Neut % (Auto) 66.5, Lymph % (Auto) 23.5, [place] % (Auto) 6.7, Eos % (Auto) 2.1, Baso % (Auto) 0.7, Absolute Neuts (auto) 11.2 H, Nucleated RBC % 0 11/16/19 17:45: Sodium 136, Potassium 4.2, Chloride 103, Carbon Dioxide 24.0, Anion Gap 9, BUN 12, Creatinine 0.96, Est GFR (MDRD) Af Amer 78, Est GFR (MDRD) Non-Af 65, BUN/Creatinine Ratio 12.6, Glucose 163 H, Calcium 9.2, Troponin I 0.029 11/16/19 17:45: Magnesium 1.9 11/16/19 17:45: Hemoglobin A1c 7.2 H 11/16/19 21:38: Troponin I 0.211 H 11/17/19 00:32: Troponin I 0.235 H 11/17/19 03:56: WBC 9.8, RBC 4.21, Hgb 12.3, Hct 39.1, MCV 92.9, MCH 29.2, MCHC 31.5 L, Plt Count 300, MPV 9.6, Immature Gran % (Auto) 0.600, Neut % (Auto) 60.1, Lymph % (Auto) 27.8, [place] % (Auto) 7.2, Eos % (Auto) 3.4, Baso % (Auto) 0.9, Absolute Neuts (auto) 5.9, Nucleated RBC % 0 11/17/19 03:56: Sodium 136, Potassium 3.4 L, Chloride 104, Carbon Dioxide 25.0, Anion Gap 7, BUN 12, Creatinine 0.74, Est GFR (MDRD) Af Amer 106, Est GFR (MDRD) Non-Af 87, BUN/Creatinine Ratio 16.3, Glucose 118 H, Calcium 8.4 L, Total Bilirubin 0.30, Troponin I 0.166 H, Triglycerides 158, Cholesterol 150, LDL Cholesterol 77, VLDL Cholesterol 32, HDL Cholesterol 41 Rhythm: EKG: ECHO: Stress Test: Cardiac Cath: PCI: CT Surgery: Holter monitor: EPS: PPM: CXR: Chest CT Scan: Assessment/Plan 1. SVT: Add metoprolol 25 mg p.o. twice daily. Patient can get a 2D echo as an outpatient. 2. Chest pain: In the setting of tachycardia. No chest pain at other times. Will be reasonable to get a stress test as an outpatient. Patient has knee issues and cannot walk on a treadmill. Lexiscan stress test will be reasonable in this patient.
== END 2019-11-17 14:35 | disposition home or self-care (01) ==
LOC: ED 19:51 → PCU 20:16
PROVIDERS: Admitting Provider Family Medicine; Emergency Provider Emergency Medicine; Visit Provider Internal Medicine
DX: R07.89 Other chest pain (principal); R42 Dizziness and giddiness; R06.02 Shortness of breath; I10 Essential (primary) hypertension; E66.01 Morbid (severe) obesity due to excess calories; G47.33 Obstructive sleep apnea (adult) (pediatric); J45.909 Unspecified asthma, uncomplicated; F41.9 Anxiety disorder, unspecified; I47.1 Supraventricular tachycardia; F17.210 Nicotine dependence, cigarettes, uncomplicated; E78.5 Hyperlipidemia, unspecified; D72.829 Elevated white blood cell count, unspecified; E11.65 Type 2 diabetes mellitus with hyperglycemia; F32.9 Major depressive disorder, single episode, unspecified; F40.00 Agoraphobia, unspecified; M79.7 Fibromyalgia; Z79.899 Other long term (current) drug therapy; Z79.84 Long term (current) use of oral hypoglycemic drugs; Z79.51 Long term (current) use of inhaled steroids; Z68.44 Body mass index [BMI] 60.0-69.9, adult
CPT/HCPCS: 36415; 71045; 80048; 80053; 80061; 82962; 83036; 83735; 84439; 84443; 84484; 85025; 93005; 94002; 94640; 96361; 96374; 97802; 99218; 99285; J7030; A4216; G0378; J0153

== ENCOUNTER → 2020-01-15 06:59 | Outpatient (CLI) | payer OTHER, SELFPAY ==
[2020-01-05 09:10] VITALS: BMI 64.8
--- NOTE | 2020-01-15 07:05 | ECHOD_ITS ---
Reason For Study: ARRHYTHMIA Procedure This was a 2D Doppler, Color Flow transthoracic echocardiogram. The study was technically difficult. Exam performed in department. Left Ventricle Normal LV size. The estimated ejection fraction is 70 %. No evidence for diastolic dysfunction. No regional wall motion abnormalities noted. Right Ventricle Normal RV size. Normal systolic function. Atria Normal left atrium. Normal right atrium. No doppler evidence for ASD. Mitral Valve There is mild mitral annular calcification. There is no mitral valve stenosis. No mitral valve insufficiency. Tricuspid Valve There is no tricuspid stenosis. Trivial tricuspid valve insufficiency. Unable to estimate RV systolic pressure due to insufficient tricuspid regurgitant envelope. Aortic Valve Aortic sclerosis, no stenosis. No aortic valve insufficiency. Pulmonic Valve There is no pulmonic valvular stenosis. No pulmonic valve insufficiency. Great Vessels Normal aortic root. Pericardium/Pleural No pericardial effusion. MMode/2D Measurements & Calculations LVIDd: 4.7 cm IVSd: 0.93 cm Ao root diam: 3.9 cm LVIDs: 3.2 cm LVPWd: 0.96 cm RVDd: 3.5 cm FS: 33.3 % LAV(MOD-bp): 47.0 ml LA A4 area: 19.4 cm2 LA dimension(2D): 4.1 cm LAV(MOD-bp) Indexed: 17.5 ml/m2 LAV(MOD-sp2): 39.1 ml LAV(MOD-sp4): 55.0 ml RA A4 area: 12.8 cm2 Time Measurements MV dec time: 0.24 sec Doppler Measurements & Calculations MV E max cody: 92.2 cm/sec Lat Peak E' Cody: 13.9 cm/sec Med Peak E' Cody: 8.6 cm/sec MV A max cody: 70.7 cm/sec E/E' lat: 6.6 E/E' med: 10.7 MV E/A: 1.3 Ao V2 max: 222.2 cm/sec LV V1 max: 97.3 cm/sec PA V2 max: 155.8 cm/sec Ao max P.8 mmHg LV V1 max P.8 mmHg TR max cody: 271.4 cm/sec TR max P.5 mmHg Interpretation Summary The estimated ejection fraction is 70 %. No evidence for diastolic dysfunction. Aortic sclerosis, no stenosis. Ordering Physician: Memo Padron Referring Physician: CHARITY BARRERA Performed By: Danisha Rodarte RDCS, RVT
--- NOTE | 2020-01-16 12:42 | STRESSREP ---
Stress Test Report Date: 01/15/2020 Procedure: Pharmacologic stress nuclear imaging study Indications: Chest pain Consent: Per the patient Procedure: The patient underwent pharmacologic (Regadenoson) evaluation with a peak heart rate of 97 beats per minute (58%predicted maximal heart rate) and a peak blood pressure of 128/60 mmHg. The baseline ECG demonstrated normal sinus rhythm. EKG during lexiscan infusion revealed no significant ischemic changes. EKG post infusion revealed no significant ischemic changes [There were no cardiac dysrhythmias pretest, during pharmacologic infusion, or recovery]. [There was no complaint of chest discomfort during pharmacologic infusion or recovery]. The examination was discontinued secondary to completion of protocol. Impression: 1. Lexiscan stress test test is negative for Lexiscan infusion induced EKG changes of ischemia. 2. Lexiscan stress test test is negative for Lexiscan infusion induced chest pain. 3. Results of the nuclear portion of the test is as below Myocardial perfusion imaging study: Technique: The patient was injected with 14.8 millicuries of technetium 99m Cardiolite and subsequently rest SPECT Cardiolite nuclear imaging was obtained in the horizontal long, vertical long, and short axis views. The patient underwent pharmacologic (Regadenoson) evaluation. Please see above for details. The patient was injected with 45 millicuries of technetium 99m Cardiolite and subsequently stress SPECT Cardiolite nuclear imaging was obtained in the horizontal long, vertical long, and short axis views. A gated Cardiolite study at peak stress was obtained. Interpretation: Rest and stress SPECT Cardiolite nuclear imaging status post realignment, normalization, and attenuation correction demonstrate mildly decreased radioisotope uptake in the inferior wall prior to attenuation correction. After attenuation correction there is normal myocardial radioisotope uptake. These findings are suggestive of diaphragmatic attenuation artifact. There is no evidence of significant ischemia or infarction. Gated images reveal no significant regional wall motion abnormalities. The reported LVEF is greater than 70%. Impression: 1. There is no evidence of significant ischemia or infarction. 2. Estimated ejection fraction is greater than 70%. This note was generated with [employer] software. It may contain incorrect words, spelling, and punctuation that were not noted in checking the note before signing.
== END ==
PROVIDERS: Referring Provider Nurse Practitioner Family; Visit Provider Nurse Practitioner Family
DX: I47.1 Supraventricular tachycardia (principal); R07.9 Chest pain, unspecified; E11.9 Type 2 diabetes mellitus without complications; I10 Essential (primary) hypertension; E78.5 Hyperlipidemia, unspecified; G47.33 Obstructive sleep apnea (adult) (pediatric); E66.01 Morbid (severe) obesity due to excess calories; Z72.0 Tobacco use
CPT/HCPCS: 78452; 93017; 93306; A9500; A4216; J2785

== ENCOUNTER → 2020-03-09 16:57 | Outpatient (CLI) | payer OTHER, SELFPAY ==
[2020-01-05 09:10] VITALS: BMI 64.8
[2020-03-09 17:40] LABS: Amphetamine Urine VISTA NEGATIVE (<1000 ng/mL); Barbiturate Urine VISTA NEGATIVE (< 200 ng/mL); Benzodiazepine Urine VISTA NEGATIVE (< 200 ng/mL); Cocaine Urine VISTA NEGATIVE (< 300 ng/mL); Ecstacy Urine VISTA NEGATIVE (< 500 ng/mL); Methadone Urine VISTA NEGATIVE (< 300 ng/mL); PCP Urine VISTA NEGATIVE (< 25 ng/mL); THC Urine VISTA NEGATIVE (< 50 ng/mL); Vista UDS pH Range 5
== END ==
PROVIDERS: Referring Provider Anesthesiology Pain Medicine; Visit Provider Anesthesiology Pain Medicine
DX: F11.20 Opioid dependence, uncomplicated (principal)
CPT/HCPCS: 80307

== ENCOUNTER 2020-04-17 14:27 | Emergency (ER) | payer OTHER, SELFPAY ==
[2020-01-05 09:10] VITALS: BMI 64.8
[2020-04-17 14:28] VITALS: BP 121/101; BP 171/101; PULSE 181; PULSE 183; RESP 16; RESP 19; TEMP 36.9; O2SAT 95; O2SAT 96; BMI 67.6
[2020-04-17] MEDS: Adenosine 6 MG/2 ML Syringe IV (14:38)
[2020-04-17] MEDS: Adenosine 6 MG/2 ML Syringe 12 MG IV (14:39)
--- NOTE | 2020-04-17 14:43 | RAD_ITS ---
EXAM: XR CHEST, 1 VIEW CLINICAL INDICATION: Palpitations TECHNIQUE: Frontal view of the chest. This report was created using [employer] report generation technology. COMPARISON: 11/15/2020 FINDINGS: LUNGS AND PLEURAL SPACES: Unremarkable. No consolidation or edema. No pneumothorax. No effusion. HEART: Unremarkable. Cardiac silhouette not enlarged. MEDIASTINUM: Central airways and mediastinal contour are unremarkable. BONES/JOINTS: Unremarkable. SOFT TISSUES: Unremarkable. RAD/Chest 1 View (Portable) IMPRESSION: No radiographic evidence of acute cardiopulmonary disease. Electronically Signed: Daniel Rosenbaum MD (Brooks) at 15:23 EST , Service support ,
--- NOTE | 2020-04-17 14:43 | EKG12_ITS ---
Test Reason : CP Blood Pressure : / mmHG Vent. Rate : 181 BPM Atrial Rate : 174 BPM P-R Int : 000 ms QRS Dur : 072 ms QT Int : 258 ms P-R-T Axes : 000 043 012 degrees QTc Int : 448 ms Supraventricular tachycardia Nonspecific ST abnormality Abnormal ECG Confirmed by MAULIK JONES, KWAKU ([id number]), editor greeting card RAQUEL GILL ([id number]) on 04/19/2020 10:54:51 A M Referred By: JESSICA Confirmed By:CAROLYN WILLINGHAM MD
--- NOTE | 2020-04-17 14:46 | EKG12_ITS ---
Test Reason : REPEAT Blood Pressure : / mmHG Vent. Rate : 086 BPM Atrial Rate : 086 BPM P-R Int : 148 ms QRS Dur : 074 ms QT Int : 360 ms P-R-T Axes : 053 024 020 degrees QTc Int : 430 ms Normal sinus rhythm Normal ECG Confirmed by MAULIK JONES, KWAKU ([id number]), assistant film editor RAQUEL GILL ([id number]) on 04/19/2020 10:55:06 A M Referred By: JESSICA Confirmed By:CAROLYN WILLINGHAM MD
--- NOTE | 2020-04-17 14:46 | ED.VISSUMM ---
- ER Visit Summary Date of Service: 04/17/20 Chief Complaint: Supraventricular tachycardia History of Present Illness: The patient is a 54 F who presents with supraventricular tachycardia that began approximately 3 hours prior to arrival. Patient states she was sitting watching TV when the palpitations started. Patient states she felt like it was racing. Patient states she had a similar episode in the past where she received adenosine and converted to a sinus rhythm. Patient states she was trying to do Valsalva maneuvers at home with no improvement. Patient denies any shortness of breath or cough. Patient denies any fevers or chills. Patient denies any nausea or vomiting. Patient denies any headaches or lightheadedness. Physical Examination: Vital signs are stable except for tachycardia of 183. Patient is afebrile. Patient is in no acute distress. Oral mucosa is pink and moist. Neck is supple. Trachea is midline. There is no JVD. Heart was regular and tachycardic. Lungs are clear and equal bilaterally. Abdomen is soft. Bowel sounds are normal. There is no tenderness. Cranial nerves II through XII are intact. There are no focal motor or sensory deficits noted. Extremities are intact. There is no calf tenderness or edema.. Test Results: EKG was obtained. On my interpretation, there is a supraventricular tachycardia with a rate of 181. There are nonspecific ST-T wave changes in the lateral leads. These are likely rate related. QRS and QT intervals were normal. [place] was normal. Repeat EKG was obtained. On my interpretation, there is a normal sinus rhythm with a rate of 86. MD interval, QRS interval, and QT intervals are normal. [place] is normal. There are no acute ST or T wave changes. Portable 1 view chest x-ray was obtained. On my interpretation, lung mejia are clear. There is normal cardiac silhouette. Bony thorax is normal. There is no acute process noted. Chip Washer also interpreted the x-ray and agrees. CBC and comprehensive metabolic profile were within normal limits. PT with INR and PTT were normal. Troponin was normal. Emergency Department Course and Treatment: Valsalva maneuvers were attempted without success. Patient was given 6 mg of adenosine IV. There is no improvement of her SVT with this. Patient was given 12 mg of adenosine IV. Patient converted to a normal sinus rhythm after this. Patient was maintained on cardiac cath lab technologist. Patient had no further episodes of SVT here in the emergency department. Patient is feeling better on reevaluation. Patient was instructed to follow-up with her primary care physician in 3 to 5 days. Patient was also instructed to follow-up with her tool drawing checker. Patient understood and was agreeable with the plan. All questions were answered. Disposition: Discharge home Impression: Supraventricular tachycardia This note was generated with [employer] dictation software. It may contain incorrect words, spelling, and punctuation that were not noted in review of the chart prior to signing ED Disposition - Plan for ED Patient: Disposition: Home or Assisted Living Diagnosis: Supraventricular tachycardia Instructions: ED Palpitations, ED Tachycardia: PAT Referrals: Vincent Yepez [Primary Care Provider] - 5-7 Days
[2020-04-17 14:48] VITALS: BP 115/76; PULSE 91; RESP 16; O2SAT 98
[2020-04-17 15:01] LABS: Absolute Neutrophil Count 5.6 X10^3/uL (2.0-7.7); Basophil# 0.09 X10^3/uL; Basophil% 0.9 % (0-1); Eosinophil# 0.32 X10^3/uL; Eosinophils% 3.4 % (0-5); Hematocrit 41.1 % (37-47); Lymphocyte % 29.4 % (19-41); Mean Corp Hgb Conc 31.6 g/dL (32-36); Mean Corpuscular Hgb 29.3 pg (27.0-32.0); Mean Corpuscular Volume 92.6 fL (81-99); Mean Platelet Vol. 9.5 fl (6.2-12.0); Monocyte# 0.63 X10^3/uL; Monocyte% 6.6 % (0-10); NRBC Flagged by Analyzer 0 % (0-5); Neutrophil % 58.9 % (47-70); Platelet Count 383 K/mm3 (150-450); RBC Distribution Width CV 14.1 % (11.6-14.6); RBC Distribution Width SD 48.2 fl (35.1-43.9); Red Blood Count 4.44 M/mm3 (4.2-5.4); White Blood Count 9.5 K/mm3 (4.4-11.0)
[2020-04-17 15:12] LABS: Partial Thromboplast Time 29.2 Seconds (24.1-36.2); Prothrombin Time (Protime)PT. 12.2 SECONDS (11.7-14.9)
[2020-04-17 15:23] LABS: ALB/GLOB Ratio 0.8 RATIO (0.9-2.4); AST(SGOT) 37 U/L (15-37); Alanine Aminotransfer ALT/SGPT 55 U/L (13-56); Albumin, Serum 3.1 g/dL (3.2-5.0); Alkaline Phosphatase 111 U/L (45-117); Anion Gap 9 (5-15); BUN 14 mg/dL (7-18); BUN/Creat Ratio 14.8 RATIO (10-20); Calcium,Total 8.8 mg/dL (8.5-10.1); Chloride 102 mmol/L (98-107); Creatinine, Serum 0.94 mg/dL (0.55-1.02); EST Glomerular Filtration Rate 66 mL/min (>60); Est Glom Filt Rate - Afr Amer 79 mL/min (>60); Estimated Creatinine Clearance 64.05 ml/min; Globulin 3.8 g/dL (2.2-4.2); Glucose 167 mg/dL (74-106); Potassium 4.3 mmol/L (3.5-5.1); Protein, Total 6.9 g/dL (6.4-8.2); Sodium Level 137 mmol/L (136-145)
[2020-04-17 15:52] VITALS: BP 140/89; PULSE 98; RESP 18; O2SAT 96
== END 2020-04-17 15:53 | disposition home or self-care (01) ==
PROVIDERS: Emergency Provider Emergency Medicine
DX: I47.1 Supraventricular tachycardia (principal); M54.2 Cervicalgia; E11.9 Type 2 diabetes mellitus without complications; J45.909 Unspecified asthma, uncomplicated; M19.90 Unspecified osteoarthritis, unspecified site; G47.33 Obstructive sleep apnea (adult) (pediatric); E66.9 Obesity, unspecified; Z79.84 Long term (current) use of oral hypoglycemic drugs; Z79.82 Long term (current) use of aspirin; Z79.899 Other long term (current) drug therapy; Z87.891 Personal history of nicotine dependence
CPT/HCPCS: 71045; 80053; 84484; 85025; 85610; 85730; 93005; 96374; 99283; J7030; A4216; J0153

== ENCOUNTER 2021-01-04 01:13 | Inpatient (IN) | payer OTHER, SELFPAY ==
[2021-01-04] VITALS (40 sets, daily range): BP systolic 81–165; BP diastolic 47–90; PULSE 74–95; RESP 12–43; TEMP 36.3–37.7; O2SAT 24–97; BMI 62.8; BMI 62.5
--- NOTE | 2021-01-04 01:28 | CT_ITS ---
STUDY: CTA CHEST REASON FOR EXAM: Female, 55 years old. hypoxia RADIATION DOSAGE (If Supplied By Facility): CTDIvol = ( 12.67 ) mGy, DLP = ( 531.54 ) mGycm TECHNIQUE: The examination was performed with the intravenous administration of IV 100mL Isovue-370. Post-processing of the angiographic images was performed, with multiplanar reformation and 3D reconstruction. Individualized dose optimization techniques were used for this CT. COMPARISON: None. FINDINGS: Normal enhancement of the main pulmonary artery and right and left pulmonary arteries. Normal enhancement of the bilateral peripheral pulmonary arteries. There is no demonstrated pulmonary embolism. Normal thoracic aorta and visualized great vessels. There is no demonstrated aortic dissection. Normal heart and pericardium. Reactive mediastinal lymphadenopathy. Normal hilar regions. Normal visualized trachea and bronchi. The lungs are well expanded. Diffuse and patchy groundglass airspace disease bilaterally compatible with COVID pneumonia. Normal pleura. Normal chest wall structures. Normal osseous structures. Normal visualized upper abdomen. CT/CTA Chest W/WO Contrast IMPRESSION: Normal CTA chest examination, without a demonstrated pulmonary embolism or arterial dissection. Diffuse and patchy groundglass airspace disease bilaterally compatible with COVID pneumonia. Electronically Signed: Smith Santana DO at 2:46 EST Tel , Service support ,
--- NOTE | 2021-01-04 01:28 | EKG12_ITS ---
Test Reason : SHORTNESS OF BREATH Blood Pressure : / mmHG Vent. Rate : 089 BPM Atrial Rate : 089 BPM P-R Int : 160 ms QRS Dur : 080 ms QT Int : 388 ms P-R-T Axes : 052 009 026 degrees QTc Int : 472 ms Normal sinus rhythm Normal ECG Confirmed by REMINGTON JONES, GINA ([id number]), sports editor RAQUEL GILL ([id number]) on 01/04/2021 10:22:24 AM Referred By: RETA Confirmed By:GINA MACEDO MD
[2021-01-04] MEDS: Acetaminophen 500 MG Tablet 1000 MG PO (01:41)
[2021-01-04] MEDS: 0.9% Normal Saline 1,000 ML 999 ML IV (01:41)
[2021-01-04] MEDS: dexAMETHasone 10 MG/ML Vial IV (01:41)
[2021-01-04 01:42] LABS: Absolute Lymphocyte Count 0.79 X10^3/uL (0.83-4.51); Absolute Neutrophil Count 6.2 X10^3/uL (2.0-7.7); Basophil# 0.01 X10^3/uL; Basophil% 0.1 % (0-1); Eosinophil# 0.02 X10^3/uL; Eosinophils% 0.3 % (0-5); Hematocrit 35.7 % (37-47); Hemoglobin 11.9 g/dL (12.0-15.0); Lymphocyte # 0.79 X10^3/ul (0.83-4.51); Mean Corp Hgb Conc 33.3 g/dL (32-36); Mean Corpuscular Hgb 29.2 pg (27.0-32.0); Mean Corpuscular Volume 87.5 fL (81-99); Mean Platelet Vol. 10.3 fl (6.2-12.0); Monocyte# 0.18 X10^3/uL; Monocyte% 2.5 % (0-10); NRBC Flagged by Analyzer 0 % (0-5); Neutrophil # 6.15 X10^3/uL (2.7-7.7); Neutrophil % 85.5 % (47-70); Platelet Count 166 K/mm3 (150-450); RBC Distribution Width CV 14.9 % (11.6-14.6); RBC Distribution Width SD 47.9 fl (35.1-43.9); Red Blood Count 4.08 M/mm3 (4.2-5.4); White Blood Count 7.2 K/mm3 (4.4-11.0)
[2021-01-04 01:47] LABS: Prothrombin Time (Protime)PT. 12.5 SECONDS (11.7-14.9)
[2021-01-04 01:48] LABS: Partial Thromboplast Time 41.8 Seconds (24.1-36.2)
--- NOTE | 2021-01-04 01:52 | EX.ED.DYSGE1 ---
HPI History of Present Illness Chief Complaint: Shortness of Breath Narrative Narrative: Patient is a 55-year-old female with past medical history of smoking and asthma but no need for supplemental oxygen at home. She states she began with fever cough and congestion on Sunday and then on Sunday went and was tested as an outpatient was positive for Covid. She states she has been doing okay but over the last 1 to 2 days has had increased shortness of breath. She states with her worsening symptoms she was concerned that she may need placed in the hospital and therefore comes in for evaluation [facility] Medical History Agoraphobia Anxiety Asthma Bronchitis Depression Essential hypertension Fibromyalgia Fibromyalgia HLD (hyperlipidemia) Hyperlipidemia Morbid obesity Morbid obesity TAMMI (obstructive sleep apnea) TAMMI on CPAP Osteoporosis Pneumonia Sleep apnea Supraventricular tachycardia Type 2 diabetes mellitus Home Medications budesonide-formoterol 2 puff INHALATION BID 06/30/14 [History Last Taken 11/16/19 08:00] hydrochlorothiazide 25 mg PO DAILY #30 tab 06/30/14 [Rx Last Taken 11/16/19 08:00] albuterol sulfate 1 - 2 puff INHALATION Q4H PRN PRN 11/16/19 [History Last Taken 11/16/19 08:00] metformin 1,000 mg PO BID 11/16/19 [History Last Taken 11/16/19 08:00] clonazepam 0.5 mg tablet 0.5 mg PO TID PRN 01/05/20 [History Last Taken Unknown] duloxetine 30 mg capsule,delayed release 90 mg PO DAILY cap 01/05/20 [History Last Taken Unknown] glimepiride 2 mg tablet 2 mg PO DAILY 01/05/20 [History Last Taken Unknown] meloxicam 15 mg tablet 7.5 mg PO DAILY 01/05/20 [History Last Taken Unknown] cetirizine 10 mg PO DAILY 04/17/20 [History Last Taken Unknown] lisinopril 20 mg PO DAILY 04/17/20 [History Last Taken Unknown] citalopram 20 mg tablet 20 mg PO DAILY 12/20/20 [History Last Taken Unknown] gabapentin 300 mg capsule 600 mg PO TID cap 12/20/20 [History Last Taken Unknown] metoprolol tartrate 50 mg tablet 50 mg PO BID 12/20/20 [History Last Taken Unknown] tramadol 50 mg tablet 50 mg PO Q8H PRN tab 12/20/20 [History Last Taken Unknown] Allergy/AdvReac Type Severity Reaction Status Date / Time morphine AdvReac Aggressive Verified 05/31/20 15:16 Family History Father Diabetes Colon cancer Cancer Liver Cancer Mother Hypertension Arthritis Mental disorder Surgical History H/O colonoscopy with polypectomy History of delivery History of left knee replacement History of tonsillectomy Social History (Updated 05/31/20 @ 16:47 by Cary LIZ, PA) Smoking Status: Former smoker alcohol intake: never substance use type: does not use ROS ROS ED Constitutional Constitutional ED: Reports chills and fever(s) ENT ENT ED: Reports rhinorrhea and sore throat Cardiovascular Cardiovascular: Denies chest pain Respiratory/Chest Respiratory/Chest: Reports cough, dyspnea and sputum Gastrointestinal Gastrointestinal: Denies abdominal pain, diarrhea, nausea or vomiting Genitourinary Genitourinary ED: Denies dysuria Musculoskeletal Musculoskeletal: Reports myalgias Integumentary Denies rash Neurologic Neurologic: Denies headache(s) EXAM Physical Exam Const Vital Signs: 01/04/21 01:13 01/04/21 01:19 01/04/21 01:28 Temperature 99.8 F H 99.8 F H Temperature Source Oral Oral Pulse Rate 92 87 87 Respiratory Rate 30 H 25 H 25 H Respiratory Effort Short of Breath Labored Respiratory Pattern Gasping Blood Pressure 95/64 95/64 Blood Pressure Mean 74 74 Pulse Ox 78 93 93 Oxygen Delivery Method Room Air Nasal Cannula Nasal Cannula Oxygen Flow Rate (L/min) 6 6 Fraction of Inspired Oxygen (FIO2) 01/04/21 01:29 01/04/21 02:39 01/04/21 03:19 Temperature 99.8 F H Temperature Source Oral Pulse Rate 87 88 85 Respiratory Rate 25 H 29 H 23 H Respiratory Effort Respiratory Pattern Blood Pressure 95/64 97/60 100/54 L Blood Pressure Mean 74 72 69 Pulse Ox 93 92 88 Oxygen Delivery Method Nasal Cannula High Flow High Flow Oxygen Flow Rate (L/min) 10 10 10 Fraction of Inspired Oxygen (FIO2) 01/04/21 03:37 01/04/21 04:10 Temperature 99.7 F H Temperature Source Oral Pulse Rate 85 78 Respiratory Rate 24 H 20 H Respiratory Effort Respiratory Pattern Normal Blood Pressure 98/57 L Blood Pressure Mean 70 Pulse Ox 85 94 Oxygen Delivery Method High Flow Oxygen Flow Rate (L/min) 10 Fraction of Inspired Oxygen (FIO2) 63 Positive well nourished, well developed and obese General Appearance ED: well developed Nutritional Appearance: obese HEENT HEENT Narrative: Cobblestoning the posterior pharynx consistent with sinus drainage but no airway edema or compromise Eyes PERRL and EOMs intact bilaterally Neck supple and no JVD Neck Narrative: Positive anterior cervical lymphadenopathy noted Chest Wall palpation of chest normal Resp Resp Narrative: Patient is in moderate respiratory distress with tachypnea and accessory muscle use. Breath sounds are diminished throughout with diffuse expiratory wheeze and rhonchi in the bilateral bases Cardio regular rate and regular rhythm Rate: other Other Details: Radial pulses are plus 2 out of 4 bilaterally are equal and symmetric GI normal to inspection, nondistended, normoactive bowel sounds, non-tender, non-distended and no masses GI Narrative: No voluntary guarding or rigidity no pulsatile mass Auscultation: normoactive bowel sounds Palpation: soft Extremity normal to inspection Extremity Narrative: No asymmetric edema no pitting edema negative Homans' sign bilaterally Neuro oriented x3 and CN's II-XII intact bilaterally Sensorium / Orientation: alert Motor Exam: strength 5/5 throughout Psych Mood & Affect: anxious Skin no rashes or lesions noted MDM MDM MDM Narrative Medical decision making narrative: Patient presented to the ER with increased work of breathing and a room air pulse ox of 78% with no need for supplemental oxygen. Secondary to this a workup was obtained. Blood work displayed mild elevation to her Cr but otherwise no clinically significant findings. Patient was placed on oxygen and her pulse ox improved but still remained low at 86-88%. Therefore she will be palced on highflow and admitted to the hospital for further care Lab Data Attestation: I reviewed the patient's lab results. Labs: Laboratory Results - last 24 hr 01/04/21 01/04/21 01/04/21 01:21 01:21 01:21 WBC 7.2 RBC 4.08 L Hgb 11.9 L Hct 35.7 L MCV 87.5 MCH 29.2 MCHC 33.3 RDW Std Deviation 47.9 H RDW Coeff of Milo 14.9 H Plt Count 166 MPV 10.3 Immature Gran % (Auto) 0.600 Neut % (Auto) 85.5 H Lymph % (Auto) 11.0 L [place] % (Auto) 2.5 Eos % (Auto) 0.3 Baso % (Auto) 0.1 Absolute Neuts (auto) 6.2 Absolute Lymphs (auto) 0.79 L Nucleated RBC % 0 PT 12.5 INR 1.0 APTT 41.8 H Sodium 134 L Potassium 3.5 Chloride 101 Carbon Dioxide 21.0 Anion Gap 12 BUN 27 H Creatinine 1.53 H Estim Creat Clear Calc 38.89 Est GFR (MDRD) Af Amer 45 L Est GFR (MDRD) Non-Af 37 L BUN/Creatinine Ratio 17.6 Glucose 253 H Calcium 8.3 L Magnesium 2.0 Troponin I High Sens 7 B-Natriuretic Peptide 01/04/21 01:21 WBC RBC Hgb Hct MCV MCH MCHC RDW Std Deviation RDW Coeff of Milo Plt Count MPV Immature Gran % (Auto) Neut % (Auto) Lymph % (Auto) [place] % (Auto) Eos % (Auto) Baso % (Auto) Absolute Neuts (auto) Absolute Lymphs (auto) Nucleated RBC % PT INR APTT Sodium Potassium Chloride Carbon Dioxide Anion Gap BUN Creatinine Estim Creat Clear Calc Est GFR (MDRD) Af Amer Est GFR (MDRD) Non-Af BUN/Creatinine Ratio Glucose Calcium Magnesium Troponin I High Sens B-Natriuretic Peptide 37.9 Radiography Diagnostic Testing: Clinical Impression(s) from Imaging Studies Chest CTA 01/04/21 01:28 IMPRESSION: Normal CTA chest examination, without a demonstrated pulmonary embolism or arterial dissection. Diffuse and patchy groundglass airspace disease bilaterally compatible with COVID pneumonia. Electronically Signed: Smith Santana DO at 2:46 EST Tel , Service support , Critical Care Time Critical Care Time: Yes Critical care time (excluding procedures): - (33 minutes ) Discharge Plan Dx/Rx/DC Orders Clinical Impression: Acute respiratory failure with hypoxia, Pneumonia due to 2019 novel coronavirus Disposition Disposition: [facility] (Former[facility]3] Care [facility]
[2021-01-04 01:55] LABS: Anion Gap 12 (5-15); BUN 27 mg/dL (7-18); BUN/Creat Ratio 17.6 RATIO (10-20); Calcium,Total 8.3 mg/dL (8.5-10.1); Chloride 101 mmol/L (98-107); Creatinine, Serum 1.53 mg/dL (0.55-1.02); EST Glomerular Filtration Rate 37 mL/min (>60); Est Glom Filt Rate - Afr Amer 45 mL/min (>60); Estimated Creatinine Clearance 38.89 ml/min; Glucose 253 mg/dL (74-106); Potassium 3.5 mmol/L (3.5-5.1); Sodium Level 134 mmol/L (136-145); Troponin-I HS 7 pg/mL (3.0-54.0)
[2021-01-04 02:04] LABS: BNP,B-Type NATRIURETIC PEPTIDE 37.9 pg/mL (0-100)
--- NOTE | 2021-01-04 03:38 | ED.RN ---
RT CALLED FOR AIR-VO.
--- NOTE | 2021-01-04 04:29 | HP.PCM_ITS ---
HPI - General HPI Narrative LOUISE DALEY, is a 55 F who presents to the emergency room with chief complaint of shortness of breath. Onset of symptoms began Sunday with runny nose and sore throat and progressed to shortness of breath with dyspnea and body aches yesterday. She is covid-19 + here today. The patient has a significant history of obesity, smoking and asthma for which she does not require oxygen at home. He spo2 here was low 80% and has required airvo therapy. She received one dose of pfizer vaccine last month but was unable to complete her second dose due to having Upper respiratory congestion when she was due. She is full code and is quite anxious. She will be admitted for covid pneumonia. CTA was negative for a PE. [facility] Medical History Agoraphobia Anxiety Asthma Bronchitis Depression Essential hypertension Fibromyalgia Fibromyalgia HLD (hyperlipidemia) Hyperlipidemia Morbid obesity Morbid obesity TAMMI (obstructive sleep apnea) TAMMI on CPAP Osteoporosis Pneumonia Sleep apnea Supraventricular tachycardia Type 2 diabetes mellitus Home Medications budesonide-formoterol 2 puff INHALATION BID 06/30/14 [History Last Taken 11/16/19 08:00] hydrochlorothiazide 25 mg PO DAILY #30 tab 06/30/14 [Rx Last Taken 11/16/19 08:00] albuterol sulfate 1 - 2 puff INHALATION Q4H PRN PRN 11/16/19 [History Last Taken 11/16/19 08:00] metformin 1,000 mg PO BID 11/16/19 [History Last Taken 11/16/19 08:00] clonazepam 0.5 mg tablet 0.5 mg PO TID PRN 01/05/20 [History Last Taken Unknown] duloxetine 30 mg capsule,delayed release 90 mg PO DAILY cap 01/05/20 [History Last Taken Unknown] glimepiride 2 mg tablet 2 mg PO DAILY 01/05/20 [History Last Taken Unknown] meloxicam 15 mg tablet 7.5 mg PO DAILY 01/05/20 [History Last Taken Unknown] cetirizine 10 mg PO DAILY 04/17/20 [History Last Taken Unknown] lisinopril 20 mg PO DAILY 04/17/20 [History Last Taken Unknown] citalopram 20 mg tablet 20 mg PO DAILY 12/20/20 [History Last Taken Unknown] gabapentin 300 mg capsule 600 mg PO TID cap 12/20/20 [History Last Taken Unknown] metoprolol tartrate 50 mg tablet 50 mg PO BID 12/20/20 [History Last Taken Unknown] tramadol 50 mg tablet 50 mg PO Q8H PRN tab 12/20/20 [History Last Taken Unknown] Allergy/AdvReac Type Severity Reaction Status Date / Time morphine AdvReac Aggressive Verified 05/31/20 15:16 Family History Father Diabetes Colon cancer Cancer Liver Cancer Mother Hypertension Arthritis Mental disorder Surgical History H/O colonoscopy with polypectomy History of delivery History of left knee replacement History of tonsillectomy Social History (Updated 05/31/20 @ 16:47 by Cary LIZ, PA) Smoking Status: Former smoker alcohol intake: never substance use type: does not use ROS Constitutional Constitutional: Reports chills and fever(s) Eyes Eyes: Denies blurry vision ENT HEENT: Denies abnormal hearing or loss taste/smell Cardiovascular Cardiovascular: Reports chest pain Respiratory/Chest Respiratory/Chest: Reports shortness of breath at rest and wheezing Gastrointestinal Gastrointestinal: Denies abdominal pain Genitourinary Genitourinary: Denies dysuria Musculoskeletal Musculoskeletal: Denies back pain Integumentary Integumentary: Denies dry skin Neurologic Neurologic: Denies abnormal speech Psychiatric Psychiatric: Reports anxiety Vital Signs Vital Signs Vital Signs: 01/04/21 01:13 01/04/21 01:19 01/04/21 01:28 Temperature 99.8 F H 99.8 F H Temperature Source Oral Oral Pulse Rate 92 87 87 Respiratory Rate 30 H 25 H 25 H Respiratory Effort Short of Breath Labored Respiratory Pattern Gasping Blood Pressure 95/64 95/64 Blood Pressure Mean 74 74 Pulse Ox 78 93 93 Oxygen Delivery Method Room Air Nasal Cannula Nasal Cannula Oxygen Flow Rate (L/min) 6 6 Fraction of Inspired Oxygen (FIO2) 01/04/21 01:29 01/04/21 02:39 01/04/21 03:19 Temperature 99.8 F H Temperature Source Oral Pulse Rate 87 88 85 Respiratory Rate 25 H 29 H 23 H Respiratory Effort Respiratory Pattern Blood Pressure 95/64 97/60 100/54 L Blood Pressure Mean 74 72 69 Pulse Ox 93 92 88 Oxygen Delivery Method Nasal Cannula High Flow High Flow Oxygen Flow Rate (L/min) 10 10 10 Fraction of Inspired Oxygen (FIO2) 01/04/21 03:37 01/04/21 04:10 Temperature 99.7 F H Temperature Source Oral Pulse Rate 85 78 Respiratory Rate 24 H 20 H Respiratory Effort Respiratory Pattern Normal Blood Pressure 98/57 L Blood Pressure Mean 70 Pulse Ox 85 94 Oxygen Delivery Method High Flow Oxygen Flow Rate (L/min) 10 Fraction of Inspired Oxygen (FIO2) 63 Weight Weight: 389 lb 1.854 oz Body Mass Index (BMI) 62.8 Physical Exam Const oriented x3 General Appearance: cooperative HEENT normocephalic and head/scalp atraumatic Eyes PERRL Neck supple Lymph Lymphatic: no lymphadenopathy noted Resp normal air movement Cardio regular rate, regular rhythm, S1 normal heart sound and S2 normal heart sound GI normal to inspection, nondistended, normoactive bowel sounds GI Narrative: obese Extremity normal capillary refill Skin General Skin Exam: turgor normal Neuro CN's II-XII intact bilaterally Psych Mood & Affect: anxious Results Lab / Micro Data Result Diagrams: 01/04/21 01:21 01/04/21 01:21 Labs: Laboratory Results - last 24 hr 01/04/21 01:21: WBC 7.2, RBC 4.08 L, Hgb 11.9 L, Hct 35.7 L, MCV 87.5, MCH 29.2, MCHC 33.3, RDW Std Deviation 47.9 H, RDW Coeff of Milo 14.9 H, Plt Count 166, MPV 10.3, Immature Gran % (Auto) 0.600, Neut % (Auto) 85.5 H, Lymph % (Auto) 11.0 L, [place] % (Auto) 2.5, Eos % (Auto) 0.3, Baso % (Auto) 0.1, Absolute Neuts (auto) 6.2, Absolute Lymphs (auto) 0.79 L, Nucleated RBC % 0 01/04/21 01:21: PT 12.5, INR 1.0, APTT 41.8 H 01/04/21 01:21: Sodium 134 L, Potassium 3.5, Chloride 101, Carbon Dioxide 21.0, Anion Gap 12, BUN 27 H, Creatinine 1.53 H, Estim Creat Clear Calc 38.89, Est GFR (MDRD) Af Amer 45 L, Est GFR (MDRD) Non-Af 37 L, BUN/Creatinine Ratio 17.6, Glucose 253 H, Calcium 8.3 L, Magnesium 2.0, Troponin I High Sens 7 01/04/21 01:21: B-Natriuretic Peptide 37.9 Micro: Microbiology 01/04/21 01:30 Nasal Secretion SARS-CoV-2 Antigen (Rapid) - Final SARS-CoV-2 (COVID 19) Radiology Impression Chest CTA 01/04/21 01:28 IMPRESSION: Normal CTA chest examination, without a demonstrated pulmonary embolism or arterial dissection. Diffuse and patchy groundglass airspace disease bilaterally compatible with COVID pneumonia. Electronically Signed: Smith Santana DO at 2:46 EST Tel , Service support , Assessment & Plan Assessment/Plan (1) Acute respiratory failure with hypoxia: (2) Pneumonia due to 2019 novel coronavirus: (3) Essential hypertension: (4) Type 2 diabetes mellitus: QUALIFIERS: Diabetes mellitus intermediate insulin use: without intermediate use Diabetes mellitus complication status: with other specified complication Qualified Code(s): E11.69 - Type 2 diabetes mellitus with other specified complication (5) Fibromyalgia: (6) HLD (hyperlipidemia): QUALIFIERS: Hyperlipidemia type: unspecified Qualified Code(s): E78.5 - Hyperlipidemia, unspecified (7) Morbid obesity: (8) TAMMI (obstructive sleep apnea): (9) Tobacco use: PLAN: 1. Covid pneumonia with hypoxia-- admit to PCU, start decadron, consult ID, strict isolation , continue resp support with oxygen or assisted ventilation 2. Diabetes- continue routine home medication 3. Hypertension- monitor 4. Hyperlipidemia- continue statin 5. Tobacco use- may offer nicotine patch 6. DVT prophylaxis- LMWH Charges/Coding Visit Charges Inpatient E&M: 78283 Init Hosp L3
--- NOTE | 2021-01-04 06:25 | ED.RN ---
Spoke with patient regarding her wishes about intubation as she is not holding her oxygenation levels up. PT became very anxious but we were able to work through her anxiety. She stated she was going to talk with her and children. arrived to ED shortly afterward and was updated with POC and visitation status.
--- NOTE | 2021-01-04 06:27 | NURSING ---
emergency pandemic charting
--- NOTE | 2021-01-04 06:46 | PN.HOSP_ITS ---
Subjective Subjective Patient still butted in the ED upon initial evaluation with significant tachypnea and increased work of breathing with discussion with ED staff transition from air Vo high flow to BiPAP with transition instead of the PCU to ICU which was arranged. Patient appeared fatigued and noted ongoing dyspnea sensation with coughing. Patient denies fevers, chills, nausea, emesis, abdominal pain, chest pain. Objective Data Objective Data Vital Signs: Vital Signs Temp Pulse Resp BP Pulse Ox 98.4 F 82 29 H 108/61 90 01/04/21 05:13 01/04/21 06:04 01/04/21 06:04 01/04/21 06:04 01/04/21 06:04 Oxygen Flow Rate (L/min) 10 Oxygen Delivery Method Airvo Weight: 389 lb 1.854 oz Body Mass Index (BMI) 62.8 Intake & Output: Intake and Output for Last 24 Hours 01/02/21 01/03/21 01/04/21 23:59 23:59 23:59 Intake Total 1000 / 1000 Balance 1000 / 1000 Lab / Micro Data Result Diagrams: 01/04/21 01:21 01/04/21 01:21 Labs: Laboratory Results - last 24 hr 01/04/21 01:21: WBC 7.2, RBC 4.08 L, Hgb 11.9 L, Hct 35.7 L, MCV 87.5, MCH 29.2, MCHC 33.3, RDW Std Deviation 47.9 H, RDW Coeff of Milo 14.9 H, Plt Count 166, MPV 10.3, Immature Gran % (Auto) 0.600, Neut % (Auto) 85.5 H, Lymph % (Auto) 11.0 L, [place] % (Auto) 2.5, Eos % (Auto) 0.3, Baso % (Auto) 0.1, Absolute Neuts (auto) 6.2, Absolute Lymphs (auto) 0.79 L, Nucleated RBC % 0 01/04/21 01:21: PT 12.5, INR 1.0, APTT 41.8 H 01/04/21 01:21: Sodium 134 L, Potassium 3.5, Chloride 101, Carbon Dioxide 21.0, Anion Gap 12, BUN 27 H, Creatinine 1.53 H, Estim Creat Clear Calc 38.89, Est GFR (MDRD) Af Amer 45 L, Est GFR (MDRD) Non-Af 37 L, BUN/Creatinine Ratio 17.6, Glucose 253 H, Calcium 8.3 L, Magnesium 2.0, Troponin I High Sens 7 01/04/21 01:21: B-Natriuretic Peptide 37.9 Micro: Microbiology 01/04/21 01:30 Nasal Secretion SARS-CoV-2 Antigen (Rapid) - Final SARS-CoV-2 (COVID 19) Radiography Diagnostic Testing: Radiology Impression Chest CTA 01/04/21 01:28 IMPRESSION: Normal CTA chest examination, without a demonstrated pulmonary embolism or arterial dissection. Diffuse and patchy groundglass airspace disease bilaterally compatible with COVID pneumonia. Electronically Signed: Smith Santana, DO at 2:46 EST Tel , Service support , Physical Exam Narrative Physical Examination: General: Awake, alert, oriented x 3 and cooperative, seated upright in the ED bed, fatigued and ill-appearing, obvious tachypnea, accessory muscle usage and evident respiratory distress. Skin: Normal color, normal turgor, no icterus, no cyanosis. HEENT: AT/NC, EOMI, PERRLA, dry MM, initially air Vo in place. Lungs: Significantly diminished, distant air sounds, increased work of breathing accessory muscle usage evident, evidence of respiratory distress, air Vo in place, no rales, ronchi or wheezing. Heart: Regular rate and rhythm; no gallop, rub audible. Abdomen: Soft, morbidly obese, NTTP, unable to discern distention given habitus, distant bowel sounds. Extremities: No cyanosis, no clubbing, bilateral ankle nonpitting edema present. Neurological: Patient awake, alert, oriented as noted, cognitive function intact; pupils equally reactive to light and accommodation, cranial nerves II- XII grossly normal, moving all 4 extremities, no focal deficits, strength severely global decrease secondary to acute presentation. Psychiatric: Affect appears fatigued, ill-appearing, evidence of respiratory distress, no acute evidence of depressive or anxiety feelings. Assessment & Plan Assessment/Plan (1) Acute respiratory failure with hypoxia: (2) Pneumonia due to 2019 novel coronavirus: PLAN: The patient is a 55 y/o F w/ PMHx: Morbid Obesity, HTN, TAMMI on BIPAP q HS, HTN, HLD, Diabetes mellitus type II with neuropathy, Anxiety and Depression, Chronic Asthma/? COPD, Former Tobacco use who presents to the [facility] ED on 01/04/21 with history of onset COVID type symptoms Sunday with rhinorrhea, sore throat, body aches and progressively worsening cough and dyspnea with Covid positive testing upon ED presentation. #1. Acute Hypoxic Respiratory Failure secondary to Acute Bilateral Pneumonia secondary to Acute Viral Syndrome, COVID-19: Patient evaluated while still in the ED bed, transition from PCU to ICU status, will maintain on COVID precautions, PRN albuterol, HOB, IS parameters w/ pending sputum cultures, respiratory viral panel and urine antigens, requested D-dimer, procalcitonin, CRP, CPK, Ferritin, LDH and BNP, continue supportive care including q 2 hour turning including prone given no prone bed availability and judicious hydration, closely monitor for worsening status for ARDS and multiorgan failure, initiated and continued on IV decadron x 10 doses, given presentation also initiated on IV remdesivir, given BIPAP transition, ID consultation requested for consideration barcitinib. Nut Roaster consulted and following. #2. Acute mild renal insufficiency secondary to acute presentation #1, likely also poor intake: Admission BUN/Cr 27/1.53, prior baseline creatinine noted to be 0.6-0.9. Judicious hydration given acute presentation #1, temporarily holdi ng patient lisinopril and hydrochlorothiazide, resume once renal function improved. #3. 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 #4. Anxiety and depression: We will continue patient home Cymbalta and Klonopin regimen however hold if concerns about worsening renal function or sedation. From current list patient also listed on citalopram, given usage of Cymbalta especially at 90 mg dose will hold citalopram until clarification. #5. Chronic Asthma/? COPD: Continued on BiPAP as noted above #1, hold patient home inhalers and transition to ATC duonebs, PRN albuterol, HOB, IS parameters. #6. Hypertension: Continue home regimen including metoprolol, temporarily holding lisinopril and hydrochlorothiazide given renal insufficiency, add back once appropriate, PRN hydralazine. #7. Hyperlipidemia: Not on statin, defer to outpatient. #8. Morbid Obesity: Weight loss and lifestyle changes encouraged. #9. 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 #10. DVT prophylaxis: SCDs, Lovenox. #11. CODE status: Patient does not have healthcare power of manometer technician nor living will in place. Given significant respiratory failure evident with Covid pneumonia with only 1 single dose vaccination remotely, discussed CODE status at length including difference between FULL code, DNR-CCA and DNR-CC status. Following discussions about the differences in these status, requested Full Code status. Advanced Care Planning Face to Face Time: 16 minutes. Charges/Coding Procedures Hospitalists Procedures: 91021 Advncd Care Plan 30 Min
--- NOTE | 2021-01-04 08:10 | ED.RN ---
REPORT CALLED TO LEGAL [employer] INTERNSARAH DONNELLY BY THIS RN.
[2021-01-04 09:59] LABS: AST(SGOT) 45 U/L (15-37); Alanine Aminotransfer ALT/SGPT 43 U/L (13-56); Albumin, Serum 2.5 g/dL (3.2-5.0); Alkaline Phosphatase 92 U/L (45-117); Bilirubin, Direct 0.11 mg/dL (0.00-0.30); CPK Total, Creatine Kinase 73 U/L (26-192); Globulin 4.6 g/dL (2.2-4.2); LDH 340 U/L (84-246); Protein, Total 7.1 g/dL (6.4-8.2); Troponin-I HS 6 pg/mL (3.0-54.0)
[2021-01-04 10:00] LABS: Procalcitonin 0.86 ng/mL (0.00-0.09)
[2021-01-04] MEDS: Enoxaparin 40 MG/0.4 ML Syringe SC ×2 (10:59→22:39)
[2021-01-04] MEDS: dexAMETHasone 4 MG/ML Vial 6 MG IV (11:00)
[2021-01-04] MEDS: 0.9% Saline Lock 10 ML Syringe IV (11:01)
[2021-01-04 11:06] LABS: Fibrinogen 753 mg/dl (203-444)
[2021-01-04] MEDS: Insulin Lispro 100 UNIT/ML INSULN.PEN SC ×3 (11:12→22:39)
[2021-01-04 11:20] LABS: Bedside Glucose 361 mg/dL (70-110)
[2021-01-04] MEDS: Gabapentin 600 MG Tablet PO ×2 (11:22→16:20)
[2021-01-04] MEDS: DULoxetine Hcl 30 MG Capsule 90 MG PO (11:22)
[2021-01-04] MEDS: Loratadine 10 MG Tablet PO (11:22)
[2021-01-04] MEDS: Meloxicam 7.5 MG Tablet PO (11:23)
--- NOTE | 2021-01-04 11:27 | CON.PCM.ID_ITS ---
Assessment & Plan Assessment/Plan (1) Pneumonia due to 2019 novel coronavirus: PLAN: Sx started 12/29. Unvaccinated. On dex. Will start remdesivir. Checking d-dimer; CT neg for PE, would recommend intermediate dose lovenox. Reviewed EUA and risks/benefits of baricinib, we agree to start. Isolate for 20 days, recommend vaccine once out of hospital and out of iso. Will follow, thank you (2) Acute respiratory failure with hypoxia: HPI Consult Data Date of Consult: 01/04/21 HPI Narrative HPI Narrative: LOUISE DALEY, is a 55 F who presented early this AM with sx since 12/29, c/o WHITE, sore throat, cough with some yellow sputum, progressive dyspnea. No change in taste/smell. Unvaccinated. Lives with who is vaccinated and asymptomatic. Came to ED, admitted on bipap to icu, on dex. Full ROS performed and neg except as noted above. [facility] Medical History Agoraphobia Anxiety Asthma Bronchitis Depression Diabetes Essential hypertension Fibromyalgia Fibromyalgia HLD (hyperlipidemia) Hyperlipidemia Hypertension Irregular heart beat Morbid obesity Morbid obesity TAMMI (obstructive sleep apnea) TAMMI on CPAP Osteoporosis Pneumonia Sleep apnea Supraventricular tachycardia Type 2 diabetes mellitus Home Medications budesonide-formoterol 2 puff INHALATION BID 06/30/14 [History Last Taken 11/16/19 08:00] hydrochlorothiazide 25 mg PO DAILY #30 tab 06/30/14 [Rx Last Taken 11/16/19 08:0 0] albuterol sulfate 1 - 2 puff INHALATION Q4H PRN PRN 11/16/19 [History Last Taken 11/16/19 08:00] metformin 1,000 mg PO BID 11/16/19 [History Last Taken 11/16/19 08:00] clonazepam 0.5 mg tablet 0.5 mg PO TID PRN 01/05/20 [History Last Taken Unknown] duloxetine 30 mg capsule,delayed release 90 mg PO DAILY cap 01/05/20 [History Last Taken Unknown] glimepiride 2 mg tablet 2 mg PO DAILY 01/05/20 [History Last Taken Unknown] meloxicam 15 mg tablet 7.5 mg PO DAILY 01/05/20 [History Last Taken Unknown] cetirizine 10 mg PO DAILY 04/17/20 [History Last Taken Unknown] lisinopril 20 mg PO DAILY 04/17/20 [History Last Taken Unknown] citalopram 20 mg tablet 20 mg PO DAILY 12/20/20 [History Last Taken Unknown] gabapentin 300 mg capsule 600 mg PO TID cap 12/20/20 [History Last Taken Unknown] metoprolol tartrate 50 mg tablet 50 mg PO BID 12/20/20 [History Last Taken Unknown] tramadol 50 mg tablet 50 mg PO Q8H PRN tab 12/20/20 [History Last Taken Unknown] Allergy/AdvReac Type Severity Reaction Status Date / Time morphine AdvReac Aggressive Verified 05/31/20 15:16 Family History Father Diabetes Colon cancer Cancer Liver Cancer Mother Hypertension Arthritis Mental disorder Surgical History H/O colonoscopy with polypectomy History of delivery History of left knee replacement History of tonsillectomy Social History (Updated 05/31/20 @ 16:47 by Cary LIZ, PA) Smoking Status: Former smoker alcohol intake: never substance use type: does not use Physical Exam Const alert and oriented x3 General Appearance: cooperative Exam Limitations: no limitations Nutritional Appearance: obese HEENT normocephalic and head/scalp atraumatic Eyes PERRL and EOMs intact bilaterally Neck supple and No nodes Resp Auscultation: diminished lung sounds Cardio regular rate and regular rhythm GI normal to inspection, nondistended, normoactive bowel sounds Extremity no clubbing, cyanosis or edema Skin no rashes or lesions noted Neuro CN's II-XII intact bilaterally Lab / Micro Data Result Diagrams: 01/04/21 01:21 01/04/21 01:21 Labs: Laboratory Results - last 24 hr 01/04/21 01:21: WBC 7.2, RBC 4.08 L, Hgb 11.9 L, Hct 35.7 L, MCV 87.5, MCH 29.2, MCHC 33.3, RDW Std Deviation 47.9 H, RDW Coeff of Milo 14.9 H, Plt Count 166, MPV 10.3, Immature Gran % (Auto) 0.600, Neut % (Auto) 85.5 H, Lymph % (Auto) 11.0 L, [place] % (Auto) 2.5, Eos % (Auto) 0.3, Baso % (Auto) 0.1, Absolute Neuts (auto) 6.2, Absolute Lymphs (auto) 0.79 L, Nucleated RBC % 0 01/04/21 01:21: PT 12.5, INR 1.0, APTT 41.8 H 01/04/21 01:21: Sodium 134 L, Potassium 3.5, Chloride 101, Carbon Dioxide 21.0, Anion Gap 12, BUN 27 H, Creatinine 1.53 H, Estim Creat Clear Calc 38.89, Est GFR (MDRD) Af Amer 45 L, Est GFR (MDRD) Non-Af 37 L, BUN/Creatinine Ratio 17.6, Glucose 253 H, Calcium 8.3 L, Magnesium 2.0, Troponin I High Sens 7 01/04/21 01:21: B-Natriuretic Peptide 37.9 01/04/21 01:21: Total Bilirubin 0.30, Direct Bilirubin 0.11, AST 45 H, ALT 43, Alkaline Phosphatase 92, Lactate Dehydrogenase 340 H, Total Creatine Kinase 73, Troponin I High Sens 6, C-React Prot Ext Range 185.00 H, Total Protein 7.1, Albumin 2.5 L, Globulin 4.6 H 01/04/21 01:21: Procalcitonin 0.86 H 01/04/21 10:40: Fibrinogen 753 H 01/04/21 10:54: POC Glucose 361 H Micro: Microbiology 01/04/21 01:30 Nasal Secretion SARS-CoV-2 Antigen (Rapid) - Final SARS-CoV-2 (COVID 19) Radiology Impression Chest CTA 01/04/21 01:28 IMPRESSION: Normal CTA chest examination, without a demonstrated pulmonary embolism or arterial dissection. Diffuse and patchy groundglass airspace disease bilaterally compatible with COVID pneumonia. Electronically Signed: Smith Santana DO at 2:46 EST Tel , Service support ,
--- NOTE | 2021-01-04 14:09 | EX.PCM.CONCC ---
Assessment & Plan Assessment/Plan (1) Acute respiratory failure with hypoxia: (2) Pneumonia due to 2019 novel coronavirus: (3) TAMMI (obstructive sleep apnea): (4) Morbid obesity: (5) Type 2 diabetes mellitus: QUALIFIERS: Diabetes mellitus fdc insulin use: without fdc use Diabetes mellitus complication status: with other specified complication Qualified Code(s): E11.69 - Type 2 diabetes mellitus with other specified complication PLAN: RECOMMENDATIONS: 1. Continue remdesivir (01/08/2021, Decadron (01/13/2021 and baricitinib (01/17/2021) 2. Change BiPAP to baseline settings of 22/18 cmH2O 3. BiPAP breaks as tolerated. Prone positioning, Acapella and incentive spirometer as able 4. Monitor for complications of Decadron therapy including hyperglycemia 5. Diuretics as needed to promote euvolemia IMPRESSIONS: 1. Acute hypoxic respiratory failure secondary to Covid pneumonia/TAMMI Patient's previous pulmonary function test have only showed some mild restriction despite smoking history. Some concern as patient's BiPAP settings were significantly low for her obstructive sleep apnea. Patient will be changed to a BiPAP 22/18 centimeters of water. Prone positioning, incentive spirometer and Acapella will be recommended as tolerated. Continue with BiPAP rescue for now. Airvo during breaks. Patient is on full therapy from a medical perspective. We will continue to use diuretic therapy as necessary to maintain euvolemia. Okay to use bronchodilators only. Patient is on systemic steroids. 2. Diabetes mellitus type 2 On Decadron therapy. We will have to watch blood sugars closely. Patient may require increase in basal insulin. Discontinue Metformin 3. Fibromyalgia/morbid obesity/tobacco abuse/allergic rhinitis/partially vaccinated status Complicates care, management, recovery and prognosis. Encourage prone positioning if possible. Okay to continue with fibromyalgia medications for now. HPI Consult Data Date of Consult: 01/04/21 HPI Narrative HPI Narrative: LOUISE DALEY is a 55 F, with past medical history listed below, who presents to [facility] on 01/04/2021 secondary to progressive shortness of breath, fever, cough and congestion. Patient estimates onset of symptoms on 12/25/2020 and she tested positive on 12/27/2020. Patient felt that she had been doing okay until last couple of days when she started to have worsening shortness of breath. Patient does not use supplemental oxygen at baseline, but is treated for asthma and obstructive sleep apnea by Dr. Vargas. Patient reportedly is compliant with her TAMMI therapy. In the ER, patient was noted to have a temperature of 99.8 ?F, tachypneic as high as 30 breaths/min and marginal blood pressures at 95/64. Patient required a high flow nasal cannula initially to maintain saturations. Patient was noted to be 78% on room air on presentation. Laboratory work-up showed a white blood cell count of 7.2, hemoglobin of 11.9 and platelets of 166. Creatinine was slightly elevated at 1.53 and glucose was 253. BNP was 37.9. A CTA of the chest showed no PE, but bilateral groundglass opacities. The patient was initiated on BiPAP therapy and admitted to the intensive care unit for further evaluation. On initial evaluation in the intensive care unit at approximately 8:45 AM patient was feeling subjectively better. Patient was on BiPAP, but not at her baseline settings. Patient was transitioned to her baseline settings and felt that this was an improvement. Patient has subsequently tried intermittently for Airvo. Patient states that she is compliant with her BiPAP therapy for obstructive sleep apnea. Patient is supposed to have gastric bypass surgery in March and hopes this will help her overall condition. Patient states that she received 1 dose of [employer] COVID-19 vaccination, but the second was not administered secondary to URI symptoms. Patient states this was well over 2 weeks ago that she was due for her second injection. Patient has been compliant with her inhaler therapy up to this point. Patient does have a smoking history. Review of systems otherwise negative from a constitutional, HEENT, respiratory, cardiovascular, GI, genitourinary, musculoskeletal, skin, neurologic, psychiatric and hematologic system unless stated above. [facility] Medical History Agoraphobia Anxiety Asthma Bronchitis Depression Diabetes Essential hypertension Fibromyalgia Fibromyalgia HLD (hyperlipidemia) Hyperlipidemia Hypertension Irregular heart beat Morbid obesity Morbid obesity TAMMI (obstructive sleep apnea) TAMMI on CPAP Osteoporosis Pneumonia Sleep apnea Supraventricular tachycardia Type 2 diabetes mellitus Home Medications budesonide-formoterol 2 puff INHALATION BID 06/30/14 [History Last Taken 11/16/19 08:00] hydrochlorothiazide 25 mg PO DAILY #30 tab 06/30/14 [Rx Last Taken 11/16/19 08:00] albuterol sulfate 1 - 2 puff INHALATION Q4H PRN PRN 11/16/19 [History Last Taken 11/16/19 08:00] metformin 1,000 mg PO BID 11/16/19 [History Last Taken 11/16/19 08:00] clonazepam 0.5 mg tablet 0.5 mg PO TID PRN 01/05/20 [History Last Taken Unknown] duloxetine 30 mg capsule,delayed release 90 mg PO DAILY cap 01/05/20 [History Last Taken Unknown] glimepiride 2 mg tablet 2 mg PO DAILY 01/05/20 [History Last Taken Unknown] meloxicam 15 mg tablet 7.5 mg PO DAILY 01/05/20 [History Last Taken Unknown] cetirizine 10 mg PO DAILY 04/17/20 [History Last Taken Unknown] lisinopril 20 mg PO DAILY 04/17/20 [History Last Taken Unknown] citalopram 20 mg tablet 20 mg PO DAILY 12/20/20 [History Last Taken Unknown] gabapentin 300 mg capsule 600 mg PO TID cap 12/20/20 [History Last Taken Unknown] metoprolol tartrate 50 mg tablet 50 mg PO BID 12/20/20 [History Last Taken Unknown] tramadol 50 mg tablet 50 mg PO Q8H PRN tab 12/20/20 [History Last Taken Unknown] Allergy/AdvReac Type Severity Reaction Status Date / Time morphine AdvReac Aggressive Verified 05/31/20 15:16 Family History Father Diabetes Colon cancer Cancer Liver Cancer Mother Hypertension Arthritis Mental disorder Surgical History H/O colonoscopy with polypectomy History of delivery History of left knee replacement History of tonsillectomy Social History (Updated 05/31/20 @ 16:47 by Cary LIZ, PA) Smoking Status: Former smoker alcohol intake: never substance use type: does not use ROS ROS Narrative See HPI Physical Exam Const oriented x3 General Appearance: cooperative Nutritional Appearance: morbidly obese HEENT normocephalic and head/scalp atraumatic Eyes PERRL, EOMs intact bilaterally, conjunctivae normal and no scleral icterus Neck full ROM, No nuchal rigidity and supple Lymph Lymphatic: no lymphadenopathy noted Chest inspection of chest normal Chest: symmetrical chest wall rise; Negative for crepitus Resp Resp Narrative: Auscultation: diminished lung sounds; Negative for rales, rhonchi or wheezes Cardio regular rate, regular rhythm, S1 normal heart sound, S2 normal heart sound, no murmurs, no rub and no gallops GI normal to inspection, nondistended, normoactive bowel sounds GI Narrative: obese Extremity normal capillary refill General Extremity: Negative for clubbing, cyanosis or edema Skin General Skin Exam: turgor normal Neuro CN's II-XII intact bilaterally Psych Mood & Affect: anxious Lab / Micro Data Result Diagrams: 01/04/21 01:21 01/04/21 01:21 Labs: Laboratory Results - last 24 hr 01/04/21 01:21: WBC 7.2, RBC 4.08 L, Hgb 11.9 L, Hct 35.7 L, MCV 87.5, MCH 29.2, MCHC 33.3, RDW Std Deviation 47.9 H, RDW Coeff of Milo 14.9 H, Plt Count 166, MPV 10.3, Immature Gran % (Auto) 0.600, Neut % (Auto) 85.5 H, Lymph % (Auto) 11.0 L, [place] % (Auto) 2.5, Eos % (Auto) 0.3, Baso % (Auto) 0.1, Absolute Neuts (auto) 6.2, Absolute Lymphs (auto) 0.79 L, Nucleated RBC % 0 01/04/21 01:21: PT 12.5, INR 1.0, APTT 41.8 H 01/04/21 01:21: Sodium 134 L, Potassium 3.5, Chloride 101, Carbon Dioxide 21.0, Anion Gap 12, BUN 27 H, Creatinine 1.53 H, Estim Creat Clear Calc 38.89, Est GFR (MDRD) Af Amer 45 L, Est GFR (MDRD) Non-Af 37 L, BUN/Creatinine Ratio 17.6, Glucose 253 H, Calcium 8.3 L, Magnesium 2.0, Troponin I High Sens 7 01/04/21 01:21: B-Natriuretic Peptide 37.9 01/04/21 01:21: Total Bilirubin 0.30, Direct Bilirubin 0.11, AST 45 H, ALT 43, Alkaline Phosphatase 92, Lactate Dehydrogenase 340 H, Total Creatine Kinase 73, Troponin I High Sens 6, C-React Prot Ext Range 185.00 H, Total Protein 7.1, Albumin 2.5 L, Globulin 4.6 H 01/04/21 01:21: Procalcitonin 0.86 H 01/04/21 10:40: Fibrinogen 753 H 01/04/21 10:54: POC Glucose 361 H Micro: Microbiology 01/04/21 01:30 Nasal Secretion SARS-CoV-2 Antigen (Rapid) - Final SARS-CoV-2 (COVID 19) Radiology Impression Chest CTA 01/04/21 01:28 IMPRESSION: Normal CTA chest examination, without a demonstrated pulmonary embolism or arterial dissection. Diffuse and patchy groundglass airspace disease bilaterally compatible with COVID pneumonia. Electronically Signed: Smith Santana DO at 2:46 EST Tel , Service support , Charges/Coding Procedures Hospitalists Procedures: [id number] Critial Care 1st Hr
--- NOTE | 2021-01-04 15:34 | PCS.PANDOC ---
PANDEMIC DOCUMENTATION INITIATED: Date: 09/20/2020 Time: 190
[2021-01-04 16:30] LABS: Bedside Glucose 315 mg/dL (70-110)
[2021-01-04] MEDS: Ipratropium/Albuterol Sulfate 3 ML AMPUL.NEB INHALATION (20:40)
[2021-01-04] MEDS: clonazePAM 0.5 MG Tablet PO (22:45)
[2021-01-05] VITALS (35 sets, daily range): BP systolic 109–169; BP diastolic 69–99; PULSE 68–102; RESP 12–40; TEMP 36.3–36.6; O2SAT 87–100
[2021-01-05 00:51] LABS: Bedside Glucose 313 mg/dL (70-110)
[2021-01-05 05:27] LABS: Hematocrit 35.5 % (37-47); Hemoglobin 11.8 g/dL (12.0-15.0); Mean Corp Hgb Conc 33.2 g/dL (32-36); Mean Corpuscular Volume 87.2 fL (81-99); Mean Platelet Vol. 10.6 fl (6.2-12.0); Platelet Count 192 K/mm3 (150-450); RBC Distribution Width SD 48.2 fl (35.1-43.9); Red Blood Count 4.07 M/mm3 (4.2-5.4); White Blood Count 5.6 K/mm3 (4.4-11.0)
[2021-01-05 05:34] LABS: ALB/GLOB Ratio 0.5 RATIO (0.9-2.4); AST(SGOT) 40 U/L (15-37); Alanine Aminotransfer ALT/SGPT 41 U/L (13-56); Albumin, Serum 2.5 g/dL (3.2-5.0); Alkaline Phosphatase 92 U/L (45-117); Anion Gap 11 (5-15); BUN 25 mg/dL (7-18); BUN/Creat Ratio 31.4 RATIO (10-20); Calcium,Total 9.1 mg/dL (8.5-10.1); Chloride 102 mmol/L (98-107); EST Glomerular Filtration Rate 80 mL/min (>60); Est Glom Filt Rate - Afr Amer 96 mL/min (>60); Estimated Creatinine Clearance 74.38 ml/min; Glucose 304 mg/dL (74-106); Potassium 3.9 mmol/L (3.5-5.1); Protein, Total 7.5 g/dL (6.4-8.2); Sodium Level 134 mmol/L (136-145)
--- NOTE | 2021-01-05 06:54 | PN.HOSP_ITS ---
Subjective Subjective Overnight there was initially some concern about worsening respiratory status with significantly elevated BiPAP settings however patient is on high settings baseline and this morning upon evaluation did appear improved. She does state that she is attempting to stay on her sides as much as possible, unable to be pr one specifically. She states she is attempting to use the incentive spirometry. She notes feeling less short of breath but still markedly fatigued. Patient denies fevers, chills, nausea, emesis, abdominal pain, chest pain. Objective Data Objective Data Vital Signs: Vital Signs Temp Pulse Resp BP Pulse Ox 97.3 F L 81 39 H 134/79 H 98 01/05/21 00:00 01/05/21 06:00 01/05/21 06:00 01/05/21 06:00 01/05/21 06:00 Oxygen Flow Rate (L/min) 10 Oxygen Delivery Method Bi-pap Weight: 386 lb 0.47 oz Body Mass Index (BMI) 62.5 Intake & Output: Intake and Output for Last 24 Hours 01/03/21 01/04/21 01/05/21 23:59 23:59 23:59 Intake Total 1885.0 / 1891.0 Output Total 1400 / 1400 Balance 485.0 / 491.0 Lab / Micro Data Result Diagrams: 01/05/21 05:00 01/05/21 05:00 Labs: Laboratory Results - last 24 hr 01/04/21 01:21: Total Bilirubin 0.30, Direct Bilirubin 0.11, AST 45 H, ALT 43, Alkaline Phosphatase 92, Lactate Dehydrogenase 340 H, Total Creatine Kinase 73, Troponin I High Sens 6, C-React Prot Ext Range 185.00 H, Total Protein 7.1, Albumin 2.5 L, Globulin 4.6 H 01/04/21 01:21: Procalcitonin 0.86 H 01/04/21 10:40: Fibrinogen 753 H 01/04/21 10:54: POC Glucose 361 H 01/04/21 16:21: POC Glucose 315 H 01/04/21 22:37: POC Glucose 313 H 01/05/21 05:00: WBC 5.6, RBC 4.07 L, Hgb 11.8 L, Hct 35.5 L, MCV 87.2, MCH 29.0, MCHC 33.2, RDW Std Deviation 48.2 H, RDW Coeff of Milo 15.0 H, Plt Count 192, MPV 10.6 01/05/21 05:00: Sodium 134 L, Potassium 3.9, Chloride 102, Carbon Dioxide 21.0, Anion Gap 11, BUN 25 H, Creatinine 0.80, Estim Creat Clear Calc 74.38, Est GFR (MDRD) Af Amer 96, Est GFR (MDRD) Non-Af 80, BUN/Creatinine Ratio 31.4 H, Glucose 304 H, Calcium 9.1, Total Bilirubin 0.30, AST 40 H, ALT 41, Alkaline Phosphatase 92, Total Protein 7.5, Albumin 2.5 L, Globulin 5.0 H, Al bumin/Globulin Ratio 0.5 L Micro: Microbiology 01/04/21 01:30 Nasal Secretion SARS-CoV-2 Antigen (Rapid) - Final SARS-CoV-2 (COVID 19) Physical Exam Narrative Physical Examination: General: Awake, alert, oriented x 3 and cooperative, laying on her side in the ICU bed, fatigued, still ongoing mildly increased respiratory rate but lessened evidence of respiratory distress the day prior. Skin: Normal color, normal turgor, no icterus, no cyanosis. HEENT: AT/NC, EOMI, PERRLA, dry MM, initially air Vo in place. Lungs: Significantly diminished, distant air sounds, improved work of breathing, still some accessory muscle usage but significantly improved appearance since day prior, air Vo in place, no rales, ronchi or wheezing. Heart: Regular rate and rhythm; no gallop, rub audible. Abdomen: Soft, morbidly obese, NTTP, unable to discern distention given habitus, distant bowel sounds. Extremities: No cyanosis, no clubbing, bilateral ankle nonpitting edema present. Neurological: Patient awake, alert, oriented as noted, cognitive function intact; pupils equally reactive to light and accommodation, cranial nerves II- XII grossly normal, moving all 4 extremities, no focal deficits, strength severely global decrease secondary to acute presentation. Psychiatric: Affect appears fatigued, improved appearance since day prior, no acute evidence of depressive or anxiety feelings. Assessment & Plan Assessment/Plan (1) Acute respiratory failure with hypoxia: (2) Pneumonia due to 2019 novel coronavirus: PLAN: The patient is a 55 y/o F w/ PMHx: Morbid Obesity, HTN, TAMMI on BIPAP q HS, HTN, HLD, Diabetes mellitus type II with neuropathy, Anxiety and Depression, Chronic Asthma/? COPD, Former Tobacco use who presents to the [facility] ED on 01/04/21 with history of onset COVID type symptoms Sunday with rhinorrhea, sore throat, body aches and progressively worsening cough and dyspnea with Covid positive testing upon ED presentation. #1. Acute Hypoxic Respiratory Failure secondary to Acute Bilateral Pneumonia secondary to Acute Viral Syndrome, COVID-19: Patient evaluated while still in the ED bed, given concerns she was transitioned from PCU to ICU status, maintaining Covid precautions through 01/16/2021, CTPA with no obvious evidence of PE with bilateral Covid pneumonia, PRN albuterol, HOB, IS parameters w/ pending sputum cultures, continue supportive care including q 2 hour turning including prone given no prone bed availability and judicious hydration, closely monitor for worsening status for ARDS and multiorgan failure, initiated and continued on IV decadron x 10 doses, given presentation also initiated on IV remdesivir, given BIPAP transition ID consulted and following initiation and continued baricitinib. #2. Acute mild renal insufficiency secondary to acute presentation #1, likely also poor intake: Admission BUN/Cr 27/1.53, prior baseline creatinine noted to be 0.6-0.9. Judicious hydration given acute presentation #1, temporarily holding patient lisinopril and hydrochlorothiazide, 01/05/2021 BUN/creatinine 25/0.8, notable improvement, will continue patient home lisinopril and hydrochlorothiazide. #3. 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 #4. Anxiety and depression: We will continue patient home Cymbalta and Klonopin regimen however hold if concerns about worsening renal function or sedation. From current list patient also listed on citalopram, given usage of Cymbalta especially at 90 mg dose will hold citalopram until clarification. #5. Chronic Asthma/? COPD: Continued on BiPAP as noted above #1, hold patient home inhalers and transition to ATC duonebs, PRN albuterol, HOB, IS parameters. #6. Hypertension: Given renal function improvement will continue metoprolol and add back lisinopril as well as hydrochlorothiazide, as needed IV hydralazine. #7. Hyperlipidemia: Not on statin, defer to outpatient. #8. Morbid Obesity: Weight loss and lifestyle changes encouraged. #9. TAMMI: Normal uses BiPAP nightly, settings adjusted per occupational rehabilitation aide. #10. DVT prophylaxis: SCDs, Lovenox. #11. CODE status: Patient does not have healthcare power of defense attorney nor living will in place. Full Code status. Charges/Coding Visit Charges Inpatient E&M: 51423 Subs Hosp L2
[2021-01-05] MEDS: Ipratropium/Albuterol Sulfate 3 ML AMPUL.NEB INHALATION ×2 (07:00→19:52)
--- NOTE | 2021-01-05 07:19 | PCM.PN.INT ---
Assessment & Plan Assessment/Plan (1) Acute respiratory failure with hypoxia: (2) Pneumonia due to 2019 novel coronavirus: (3) TAMMI (obstructive sleep apnea): (4) Morbid obesity: (5) Type 2 diabetes mellitus: QUALIFIERS: Diabetes mellitus complication status: with other specified complication Diabetes mellitus manager security and safety insulin use: without manager security and safety use Qualified Code(s): E11.69 - Type 2 diabetes mellitus with other specified complication PLAN: RECOMMENDATIONS: 1. Continue remdesivir, Decadron and baricitinib 2. Continue BiPAP therapy, at a minimum, with naps and nightly. 3. Continue to wean FiO2 as tolerated to maintain oxygen saturations at or above 90%. 4. Awake prone positioning was encouraged. 5. IV Lasix as needed to maintain euvolemic state. 6. Given tenuous respiratory status, recommend n.p.o. status. IMPRESSIONS: 1. Acute hypoxic respiratory failure secondary to Covid pneumonia The patient presented to the hospital with COVID-19 pneumonia with symptoms that initially started around December 29. Accordingly, the patient has been initiated on remdesivir and Decadron. Given further respiratory decompensation, she was also placed on baricitinib. Her respiratory status still remains quite tenuous. Plan to continue BiPAP therapy, at a minimum, with naps and nightly. The patient can be continued on heated high flow oxygen as tolerated to maintain saturations at or above 90%. She should remain n.p.o. for now given tenuous respiratory status. If the patient were to worsen or require intubation, empiric antimicrobials should be initiated. Continue twice daily Lovenox. 2. Diabetes mellitus type 2 Continue Lantus and sliding scale insulin coverage. 3. Fibromyalgia/morbid obesity/tobacco abuse/allergic rhinitis/partially vaccinated status Complicates care, management, recovery and prognosis. Continue baseline anxiolytic therapy. Physical therapy to work with the patient. This note was generated with [employer] dictation software. It may contain incorrect words, spelling, and punctuation that were not noted in checking the note before signing. Subjective Subjective The patient was seen and examined at the bedside this morning. Events from the last 24 hours have been reviewed. The patient is currently afebrile, hemodynamically stable and maintaining appropriate oxygen saturations on BiPAP with an FiO2 requirement of 50%. The patient has been able to tolerate breaks from Pap therapy on Airvo heated high flow oxygen. The patient remains on remdesivir, twice daily Lovenox, Decadron and baricitinib. She still seems quite anxious this morning. Objective Data Objective Data The patient's most recent lab work, culture data and imaging studies have all been personally reviewed. Rapid coronavirus antigen testing was positive on January 04. Vital Signs: Vital Signs Temp Pulse Resp BP Pulse Ox 97.3 F L 88 25 H 153/86 H 98 01/05/21 00:00 01/05/21 07:02 01/05/21 07:02 01/05/21 07:00 01/05/21 07:01 Oxygen Flow Rate (L/min) 10 Oxygen Delivery Method Bi-pap Weight: 175.1 kg Body Mass Index (BMI) 62.5 Intake & Output: Intake and Output for Last 24 Hours 01/03/21 01/04/21 01/05/21 23:59 23:59 23:59 Intake Total 1885.0 / 1891.0 Output Total 1400 / 1400 Balance 485.0 / 491.0 Lab / Micro Data Attestation: I reviewed the patient's lab results. Result Diagrams: 01/05/21 05:00 01/05/21 05:00 Labs: Laboratory Results - last 24 hr 01/04/21 01:21: Total Bilirubin 0.30, Direct Bilirubin 0.11, AST 45 H, ALT 43, Alkaline Phosphatase 92, Lactate Dehydrogenase 340 H, Total Creatine Kinase 73, Troponin I High Sens 6, C-React Prot Ext Range 185.00 H, Total Protein 7.1, Albumin 2.5 L, Globulin 4.6 H 01/04/21 01:21: Procalcitonin 0.86 H 01/04/21 10:40: Fibrinogen 753 H 01/04/21 10:54: POC Glucose 361 H 01/04/21 16:21: POC Glucose 315 H 01/04/21 22:37: POC Glucose 313 H 01/05/21 05:00: WBC 5.6, RBC 4.07 L, Hgb 11.8 L, Hct 35.5 L, MCV 87.2, MCH 29.0, MCHC 33.2, RDW Std Deviation 48.2 H, RDW Coeff of Milo 15.0 H, Plt Count 192, MPV 10.6 01/05/21 05:00: Sodium 134 L, Potassium 3.9, Chloride 102, Carbon Dioxide 21.0, Anion Gap 11, BUN 25 H, Creatinine 0.80, Estim Creat Clear Calc 74.38, Est GFR (MDRD) Af Amer 96, Est GFR (MDRD) Non-Af 80, BUN/Creatinine Ratio 31.4 H, Glucose 304 H, Calcium 9.1, Total Bilirubin 0.30, AST 40 H, ALT 41, Alkaline Phosphatase 92, Total Protein 7.5, Albumin 2.5 L, Globulin 5.0 H, Albumin/Globulin Ratio 0.5 L Micro: Microbiology 01/04/21 01:30 Nasal Secretion SARS-CoV-2 Antigen (Rapid) - Final SARS-CoV-2 (COVID 19) Physical Exam Const alert General Appearance: cooperative and ill appearing Nutritional Appearance: morbidly obese HEENT normocephalic and head/scalp atraumatic Eyes PERRL, EOMs intact bilaterally and conjunctivae normal Neck supple General: trachea midline Chest inspection of chest normal Resp Effort and Inspection: tachypneic Auscultation: diminished lung sounds Cardio regular rate and regular rhythm GI normal to inspection, nondistended, normoactive bowel sounds Extremity no clubbing, cyanosis or edema Skin no rashes or lesions noted Neuro CN's II-XII intact bilaterally, moves all extremities and no focal motor deficits Psych Mood & Affect: anxious Charges/Coding Visit Charges Inpatient E&M: 56874 Subs Hosp L3
[2021-01-05] MEDS: Insulin Lispro 100 UNIT/ML INSULN.PEN SC ×4 (08:13→21:48)
[2021-01-05] MEDS: Gabapentin 600 MG Tablet PO ×3 (08:13→16:11)
[2021-01-05 08:26] LABS: Bedside Glucose 294 mg/dL (70-110)
[2021-01-05] MEDS: dexAMETHasone 4 MG/ML Vial 6 MG IV (09:38)
[2021-01-05] MEDS: 0.9% Saline Lock 10 ML Syringe IV ×2 (09:38→12:03)
[2021-01-05] MEDS: DULoxetine Hcl 30 MG Capsule 90 MG PO (09:41)
[2021-01-05] MEDS: Meloxicam 7.5 MG Tablet PO (09:42)
[2021-01-05] MEDS: Enoxaparin 40 MG/0.4 ML Syringe SC ×2 (09:42→21:48)
[2021-01-05] MEDS: Loratadine 10 MG Tablet PO (09:42)
[2021-01-05 11:36] LABS: Bedside Glucose 299 mg/dL (70-110)
[2021-01-05] MEDS: clonazePAM 0.5 MG Tablet PO ×2 (11:53→21:49)
[2021-01-05] MEDS: CHLORHEXIDINE GLUC 2% CLOTH 1 EACH TOWELETTE TOPICAL (12:03)
[2021-01-05 12:37] LABS: D-Dimer Quantitative (DVT/PE) 0.81 FEU/ug/m (0.27-0.49)
--- NOTE | 2021-01-05 13:32 | CASEMGMT ---
RN KARON called patient in room for initial transition planning/care coordination assessment. RN KARON introduced self and role at [facility]. Patient is alert and oriented. Patient willing to participate in assessment and is able to answer all questions appropriately. Care providers, pharmacy, and demographics verified. Patient wishes to discharge home, denies need for home health at this time, will monitor therapy. Patient states she has no further needs or concerns at this time. CM to follow for discharge planning needs that may arise. PCP: [facility] Specialists: Tawny, pain; Sam, cheese specialist; [facility] Preferred Pharmacy: [facility] Insurance: MMO Prescription Benefit: yes Living Will/HPOA: none, patient would like to complete, SW updated LNOK: Living Arrangements: Patient lives with in a single story home with 2 step to enter the home. Patient states she is independent at home. Transportation: self/ DME/HHC: Patient states she has shower chair, cane, nebulizer, and Bipap at home. Patient states denies previous HHC or SNF Disposition Plan: Patient to discharge home with family support and follow-up plans in place. Will monitor progress with therapy and need for HHC. Hue BANSAL, RN, CM
--- NOTE | 2021-01-05 14:32 | CASEMGMT ---
Social Work SW assisted pt in completing living will and health care POA. Pt naming her Rojelio Allen as HCPOA. Original documents given to pt and copy placed on pt chart. LOLY Morel
--- NOTE | 2021-01-05 14:48 | CHAPLAIN ---
Type of Pastoral Visit _x__ Initial Visit ___ Follow-up Visit ___ On-call Visit ___ General Patient Visit ___ Spiritual Assessment ___ Family Conference ___ Bereavement ___ Rapid Response ___ Code Blue ___ Other (describe below) Pastoral Care Referral From _x__ Patient ___ Family _x__ Nurse ___ Physician ___ Worship Director ___ Resource Development Director ___ Other (describe below) Sacrament/Intervention _x__ Active listening ___ Anointing ___ Religious ___ Bereavement ___ Communion ___ Jossie exploration ___ ___ Life review _x__ Prayer ___ Reconciliation ___ Sacrament of Sick _x__ Supportive presence ___ Wedding ___ Other (describe below) Pastoral Comments phone call made into isolation room after introduction at entrance of her room and approval for the call; pt has admitted and medical team has observed that pt is anxious; pt is up in chair when conversation made; pt is able to talk; 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
[2021-01-05 16:20] LABS: Bedside Glucose 386 mg/dL (70-110)
[2021-01-05 23:01] LABS: Bedside Glucose 326 mg/dL (70-110)
[2021-01-06] VITALS (36 sets, daily range): BP systolic 94–172; BP diastolic 61–97; PULSE 71–101; RESP 12–32; TEMP 36–36.3; O2SAT 92–99
[2021-01-06] MEDS: LORazepam 0.5 MG Tablet PO ×2 (01:31→21:22)
[2021-01-06 05:30] LABS: Hemoglobin 11.8 g/dL (12.0-15.0); Mean Corp Hgb Conc 32.8 g/dL (32-36); Mean Corpuscular Hgb 28.5 pg (27.0-32.0); Mean Platelet Vol. 11.1 fl (6.2-12.0); Platelet Count 220 K/mm3 (150-450); RBC Distribution Width CV 15.4 % (11.6-14.6); RBC Distribution Width SD 48.9 fl (35.1-43.9); Red Blood Count 4.14 M/mm3 (4.2-5.4); White Blood Count 4.5 K/mm3 (4.4-11.0)
[2021-01-06 05:47] LABS: ALB/GLOB Ratio 0.5 RATIO (0.9-2.4); AST(SGOT) 40 U/L (15-37); Alanine Aminotransfer ALT/SGPT 37 U/L (13-56); Albumin, Serum 2.4 g/dL (3.2-5.0); Alkaline Phosphatase 84 U/L (45-117); Anion Gap 11 (5-15); BUN 35 mg/dL (7-18); BUN/Creat Ratio 41.5 RATIO (10-20); Calcium,Total 8.9 mg/dL (8.5-10.1); Chloride 101 mmol/L (98-107); Creatinine, Serum 0.84 mg/dL (0.55-1.02); EST Glomerular Filtration Rate 74 mL/min (>60); Est Glom Filt Rate - Afr Amer 90 mL/min (>60); Estimated Creatinine Clearance 70.84 ml/min; Globulin 4.9 g/dL (2.2-4.2); Glucose 346 mg/dL (74-106); Potassium 4.7 mmol/L (3.5-5.1); Protein, Total 7.3 g/dL (6.4-8.2); Sodium Level 135 mmol/L (136-145)
--- NOTE | 2021-01-06 06:23 | PCM.PN.HOSP ---
Subjective Subjective Patient anxious overnight frequently transitioning off of BiPAP to air Vo. Patient reports loose stools this morning but per discussion with nursing staff this was minimal and only one episode. Patient states she is attempting to move in her bed frequently and do incentive spirometry but do have some concerns about the level of her involvement per discussion with staff. Again strongly encouraged her to aggressively perform these activities to decrease her oxygen requirements. Patient denies fevers, chills, nausea, emesis, abdominal pain, chest pain. Objective Data Objective Data Vital Signs: Vital Signs Temp Pulse Resp BP Pulse Ox 97.4 F L 81 26 H 140/79 H 96 01/06/21 00:00 01/06/21 06:00 01/06/21 05:00 01/06/21 06:00 01/06/21 06:00 Oxygen Flow Rate (L/min) 60 Oxygen Delivery Method Bi-pap Weight: 386 lb 0.47 oz Body Mass Index (BMI) 62.5 Intake & Output: Intake and Output for Last 24 Hours 01/04/21 01/05/21 01/06/21 23:59 23:59 23:59 Intake Total 1885.0 / 1891.0 1173.5 / 1181.5 8 8 Output Total 1400 / 1400 600 / 600 550 / 550 Balance 485.0 / 491.0 573.5 / 581.5 -542 / -542 Lab / Micro Data Result Diagrams: 01/06/21 05:15 01/06/21 05:15 Labs: Laboratory Results - last 24 hr 01/05/21 08:10: POC Glucose 294 H 01/05/21 11:20: POC Glucose 299 H 01/05/21 12:05: D-Dimer Quant (PE/DVT) 0.81 H* 01/05/21 16:09: POC Glucose 386 H 01/05/21 21:47: POC Glucose 326 H 01/06/21 05:15: WBC 4.5, RBC 4.14 L, Hgb 11.8 L, Hct 36.0 L, MCV 87.0, MCH 28.5, MCHC 32.8, RDW Std Deviation 48.9 H, RDW Coeff of Milo 15.4 H, Plt Count 220, MPV 11.1 01/06/21 05:15: Sodium 135 L, Potassium 4.7, Chloride 101, Carbon Dioxide 23.0, Anion Gap 11, BUN 35 H, Creatinine 0.84, Estim Creat Clear Calc 70.84, Est GFR (MDRD) Af Amer 90, Est GFR (MDRD) Non-Af 74, BUN/Creatinine Ratio 41.5 H, Glucose 346 H, Calcium 8.9, Total Bilirubin 0.30, AST 40 H, ALT 37, Alkaline Phosphatase 84, Total Protein 7.3, Albumin 2.4 L, Globulin 4.9 H, Albumin/Globulin Ratio 0.5 L Micro: Microbiology 01/04/21 01:30 Nasal Secretion SARS-CoV-2 Antigen (Rapid) - Final SARS-CoV-2 (COVID 19) Physical Exam Narrative Physical Examination: General: Awake, alert, oriented x 3 and cooperative, seated upright in the ICU bed, improved appearance since day prior, less in respiratory distress evident. Skin: Normal color, normal turgor, no icterus, no cyanosis. HEENT: AT/NC, EOMI, PERRLA, dry MM, air Vo in place. Lungs: Significantly diminished, distant air sounds, improved, less in respiratory distress, air Vo in place, no rales, ronchi or wheezing. Heart: Regular rate and rhythm; no gallop, rub audible. Abdomen: Soft, morbidly obese, NTTP, unable to discern distention given habitus, distant bowel sounds. Extremities: No cyanosis, no clubbing, bilateral ankle nonpitting edema present. Neurological: Patient awake, alert, oriented as noted, cognitive function intact; pupils equally reactive to light and accommodation, cranial nerves II-XII grossly normal, moving all 4 extremities, no focal deficits, strength remains severely global decrease secondary to acute presentation. Psychiatric: Affect appears improved, no acute evidence of depressive or anxiety feelings. Assessment & Plan Assessment/Plan (1) Acute respiratory failure with hypoxia: (2) Pneumonia due to 2019 novel coronavirus: PLAN: The patient is a 55 y/o F w/ PMHx: Morbid Obesity, HTN, TAMMI on BIPAP q HS, HTN, HLD, Diabetes mellitus type II with neuropathy, Anxiety and Depression, Chronic Asthma/? COPD, Former Tobacco use who presents to the [facility] ED on 01/04/21 with history of onset COVID type symptoms Sunday with rhinorrhea, sore throat, body aches and progressively worsening cough and dyspnea with Covid positive testing upon ED presentation. #1. Acute Hypoxic Respiratory Failure secondary to Acute Bilateral Pneumonia secondary to Acute Viral Syndrome, COVID-19: Patient evaluated while still in the ED bed, given concerns she was transitioned from PCU to ICU status, maintaining Covid precautions through 01/16/2021, CTPA with no obvious evidence of PE with bilateral Covid pneumonia, PRN albuterol, HOB, IS parameters w/ pending sputum cultures, continue supportive care including q 2 hour turning including prone given no prone bed availability and judicious hydration, closely monitor for worsening status for ARDS and multiorgan failure, initiated and continued on IV decadron x 10 doses, given presentation also initiated on IV remdesivir, given BIPAP transition ID consulted and following initiation and continued baricitinib. 01/06/2021 patient with some anxiety vacillating between BiPAP and air Vo. #2. Acute mild renal insufficiency secondary to acute presentation #1, likely also poor intake: Admission BUN/Cr 27/1.53, prior baseline creatinine noted to be 0.6-0.9. Judicious hydration given acute presentation #1, temporarily holding patient lisinopril and hydrochlorothiazide, 01/05/2021 BUN/creatinine 25/0.8 with restart on patient lisinopril and hydrochlorothiazide. 01/06/2021 BUN/creatinine 35/0.84. #3. 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 #4. Anxiety and depression: We will continue patient home Cymbalta and Klonopin regimen however hold if concerns about worsening renal function or sedation. From current list patient also listed on citalopram, given usage of Cymbalta especially at 90 mg dose, citalopram held. #5. Chronic Asthma/? COPD: Continued on BiPAP as noted above #1, hold patient home inhalers and transition to ATC duonebs, PRN albuterol, HOB, IS parameters. #6. Hypertension: Given renal function improvement will continue metoprolol and add back lisinopril as well as hydrochlorothiazide, as needed IV hydralazine. #7. Hyperlipidemia: Not on statin, defer to outpatient. #8. Morbid Obesity: Weight loss and lifestyle changes encouraged. #9. TAMMI: Normal uses BiPAP nightly, settings adjusted per heel slugger. #10. DVT prophylaxis: SCDs, Lovenox. #11. CODE status: Patient does not have healthcare power of employee benefits attorney nor living will in place. Full Code status. Charges/Coding Visit Charges Inpatient E&M: 97481 Subs Hosp L2
--- NOTE | 2021-01-06 06:38 | PN.CC_ITS ---
Assessment & Plan Assessment/Plan (1) Acute respiratory failure with hypoxia: (2) Pneumonia due to 2019 novel coronavirus: (3) TAMMI (obstructive sleep apnea): (4) Morbid obesity: (5) Type 2 diabetes mellitus: QUALIFIERS: Diabetes mellitus complication status: with other specified complication Diabetes mellitus equipment operator intermodal yard insulin use: without equipment operator intermodal yard use Qualified Code(s): E11.69 - Type 2 diabetes mellitus with other specified complication PLAN: RECOMMENDATIONS: 1. Continue remdesivir, Decadron and baricitinib 2. Continue BiPAP therapy, at a minimum, with naps and nightly. 3. Continue to wean FiO2 as tolerated to maintain oxygen saturations at or above 90%. 4. Awake prone positioning was encouraged. 5. IV Lasix as needed to maintain euvolemic state. IMPRESSIONS: 1. Acute hypoxic respiratory failure secondary to Covid pneumonia The patient presented to the hospital with COVID-19 pneumonia with symptoms that initially started around December 29. Accordingly, the patient has been initiated on remdesivir and Decadron. Given further respiratory decompensation, she was also placed on baricitinib. Her respiratory status still remains quite tenuous. Plan to continue BiPAP therapy, at a minimum, with naps and nightly. The patient can be continued on heated high flow oxygen as tolerated to maintain saturations at or above 90%. Continue twice daily Lovenox. 2. Diabetes mellitus type 2 Continue Lantus and sliding scale insulin coverage. 3. Fibromyalgia/morbid obesity/tobacco abuse/allergic rhinitis/partially vaccinated status Complicates care, management, recovery and prognosis. Continue baseline anxiolytic therapy. Physical therapy to work with the patient. This note was generated with [employer] dictation software. It may contain incorrect words, spelling, and punctuation that were not noted in checking the note before signing. Subjective Subjective The patient was seen and examined at the bedside this morning. Events from the last 24 hours have been reviewed. The patient is currently afebrile, hemodynamically stable and maintaining appropriate oxygen saturations on BiPAP with an FiO2 requirement of 30%. The patient was able to be maintained on he ated high flow oxygen throughout the day yesterday. She does continue to have a great deal of baseline anxiety. The patient remains on remdesivir, twice daily Lovenox, Decadron and baricitinib. Liver and renal function are stable. Objective Data Objective Data The patient's most recent lab work, culture data and imaging studies have all been personally reviewed. Rapid coronavirus antigen testing was positive on January 04. Vital Signs: Vital Signs Temp Pulse Resp BP Pulse Ox 97.4 F L 81 26 H 140/79 H 96 01/06/21 00:00 01/06/21 06:00 01/06/21 05:00 01/06/21 06:00 01/06/21 06:00 Oxygen Flow Rate (L/min) 60 Oxygen Delivery Method Bi-pap Weight: 175.1 kg Body Mass Index (BMI) 62.5 Intake & Output: Intake and Output for Last 24 Hours 01/04/21 01/05/21 01/06/21 23:59 23:59 23:59 Intake Total 1885.0 / 1891.0 1173.5 / 1181.5 8 Output Total 1400 / 1400 600 / 600 550 / 550 Balance 485.0 / 491.0 573.5 / 581.5 -542 / -542 Lab / Micro Data Attestation: I reviewed the patient's lab results. Result Diagrams: 01/06/21 05:15 01/06/21 05:15 Labs: Laboratory Results - last 24 hr 01/05/21 08:10: POC Glucose 294 H 01/05/21 11:20: POC Glucose 299 H 01/05/21 12:05: D-Dimer Quant (PE/DVT) 0.81 H* 01/05/21 16:09: POC Glucose 386 H 01/05/21 21:47: POC Glucose 326 H 01/06/21 05:15: WBC 4.5, RBC 4.14 L, Hgb 11.8 L, Hct 36.0 L, MCV 87.0, MCH 28.5, MCHC 32.8, RDW Std Deviation 48.9 H, RDW Coeff of Milo 15.4 H, Plt Count 220, MPV 11.1 01/06/21 05:15: Sodium 135 L, Potassium 4.7, Chloride 101, Carbon Dioxide 23.0, Anion Gap 11, BUN 35 H, Creatinine 0.84, Estim Creat Clear Calc 70.84, Est GFR (MDRD) Af Amer 90, Est GFR (MDRD) Non-Af 74, BUN/Creatinine Ratio 41.5 H, Gluco se 346 H, Calcium 8.9, Total Bilirubin 0.30, AST 40 H, ALT 37, Alkaline Phosphatase 84, Total Protein 7.3, Albumin 2.4 L, Globulin 4.9 H, Albumin/Globulin Ratio 0.5 L Micro: Microbiology 01/04/21 01:30 Nasal Secretion SARS-CoV-2 Antigen (Rapid) - Final SARS-CoV-2 (COVID 19) Physical Exam Const alert General Appearance: cooperative and ill appearing Nutritional Appearance: morbidly obese HEENT normocephalic and head/scalp atraumatic Eyes PERRL, EOMs intact bilaterally and conjunctivae normal Neck supple General: trachea midline Chest inspection of chest normal Resp Effort and Inspection: tachypneic Auscultation: diminished lung sounds Cardio regular rate and regular rhythm GI normal to inspection, nondistended, normoactive bowel sounds Extremity no clubbing, cyanosis or edema Skin no rashes or lesions noted Neuro CN's II-XII intact bilaterally, moves all extremities and no focal motor deficits Psych Mood & Affect: anxious Charges/Coding Visit Charges Inpatient E&M: 02901 Subs Hosp L3
[2021-01-06] MEDS: Ipratropium/Albuterol Sulfate 3 ML AMPUL.NEB INHALATION ×3 (07:50→19:50)
[2021-01-06] MEDS: Gabapentin 600 MG Tablet PO ×3 (08:14→16:08)
[2021-01-06] MEDS: Insulin Lispro 100 UNIT/ML INSULN.PEN SC ×4 (08:15→21:12)
[2021-01-06 08:25] LABS: Bedside Glucose 343 mg/dL (70-110)
[2021-01-06] MEDS: Meloxicam 7.5 MG Tablet PO (10:53)
[2021-01-06] MEDS: DULoxetine Hcl 30 MG Capsule 90 MG PO (10:53)
[2021-01-06] MEDS: hydroCHLOROthiazide 25 MG Tablet PO (10:53)
[2021-01-06] MEDS: Loratadine 10 MG Tablet PO (10:53)
[2021-01-06] MEDS: Lisinopril 20 MG Tablet PO (10:53)
[2021-01-06] MEDS: Enoxaparin 40 MG/0.4 ML Syringe SC ×2 (10:53→21:13)
[2021-01-06] MEDS: dexAMETHasone 4 MG/ML Vial 6 MG IV (10:54)
[2021-01-06] MEDS: CHLORHEXIDINE GLUC 2% CLOTH 1 EACH TOWELETTE TOPICAL (10:55)
[2021-01-06] MEDS: 0.9% Saline Lock 10 ML Syringe IV ×2 (11:05→16:12)
[2021-01-06 11:10] LABS: Bedside Glucose 332 mg/dL (70-110)
[2021-01-06 16:20] LABS: Bedside Glucose 382 mg/dL (70-110)
[2021-01-06] MEDS: Acetaminophen 325 MG Tablet 650 MG PO (18:09)
[2021-01-07] VITALS (24 sets, daily range): BP systolic 115–158; BP diastolic 56–99; PULSE 64–95; RESP 12–32; TEMP 35.8–37.1; O2SAT 90–100
[2021-01-07 01:20] LABS: Bedside Glucose 426 mg/dL (70-110)
[2021-01-07] MEDS: Ondansetron 4 MG/2 ML Vial IV (01:36)
[2021-01-07] MEDS: 0.9% Saline Lock 10 ML Syringe IV ×2 (01:37→10:23)
[2021-01-07] MEDS: clonazePAM 0.5 MG Tablet PO (05:44)
--- NOTE | 2021-01-07 05:45 | NURSING ---
Unable to obtain morning labs after several unsuccessful attempts by this RN and another RN. Lab called to attempt.
--- NOTE | 2021-01-07 06:38 | PN.HOSP_ITS ---
Subjective Subjective Patient overnight remained on BiPAP with transition without issue to air Vo this morning. Patient upon evaluation was having a mild panic attack secondary to significant concerns about getting up to the bedside chair. Was able to discuss with her the importance of slowing her breathing and taking improve deep breaths which did help her some. Patient has been a difficult stick with pending PICC placement. Patient clinically improved with plans PCU transition. Patient denies fevers, chills, nausea, emesis, abdominal pain, chest pain. Objective Data Objective Data Vital Signs: Vital Signs Temp Pulse Resp BP Pulse Ox 97.1 F L 66 19 H 156/94 H 100 01/07/21 04:00 01/07/21 06:00 01/07/21 06:00 01/07/21 06:00 01/07/21 06:00 Oxygen Flow Rate (L/min) 60 Oxygen Delivery Method Airvo Weight: 384 lb 0.724 oz Body Mass Index (BMI) 62.5 Intake & Output: Intake and Output for Last 24 Hours 01/05/21 01/06/21 01/07/21 23:59 23:59 23:59 Intake Total 1173.5 / 1181.5 913 / 913 Output Total 600 / 600 1450 / 1450 Balance 573.5 / 581.5 -537 / -537 Lab / Micro Data Result Diagrams: 01/07/21 07:40 01/07/21 07:40 Labs: Laboratory Results - last 24 hr 01/06/21 08:09: POC Glucose 343 H 01/06/21 10:51: POC Glucose 332 H 01/06/21 16:07: POC Glucose 382 H 01/06/21 21:09: POC Glucose 426 H Micro: Microbiology 01/04/21 01:30 Nasal Secretion SARS-CoV-2 Antigen (Rapid) - Final SARS-CoV-2 (COVID 19) Physical Exam Narrative Physical Examination: General: Awake, alert, oriented x 3 and cooperative, seated upright in the ICU bed, at the bedside, getting ready to get up to the bedside chair, anxious, reading very shallow and quick, was able to talk her through and calm her down some. Skin: Normal color, normal turgor, no icterus, no cyanosis. HEENT: AT/NC, EOMI, PERRLA, mildly dry MM, air Vo in place. Lungs: Patient remains diminished, greater bases, currently increased respiratory rate secondary to anxiety, air Vo in place, no rales, ronchi or wheezing. Heart: Regular rate and rhythm; no gallop, rub audible. Abdomen: Soft, morbidly obese, NTTP, unable to discern distention given habitus, distant bowel sounds. Extremities: No cyanosis, no clubbing, bilateral ankle nonpitting edema present. Neurological: Patient awake, alert, oriented as noted, cognitive function intact; pupils equally reactive to light and accommodation, cranial nerves II- XII grossly normal, moving all 4 extremities, no focal deficits, strength remains severely global decrease secondary to acute presentation. Psychiatric: Affect appears anxious currently, attempted several different types of relaxation methods and had some improvement, no obvious evidence of depressive feelings. Assessment & Plan Assessment/Plan (1) Acute respiratory failure with hypoxia: (2) Pneumonia due to 2019 novel coronavirus: PLAN: The patient is a 55 y/o F w/ PMHx: Morbid Obesity, HTN, TAMMI on BIPAP q HS, HTN, HLD, Diabetes mellitus type II with neuropathy, Anxiety and Depression, Chronic Asthma/? COPD, Former Tobacco use who presents to the [facility] ED on 01/04/21 with history of onset COVID type symptoms Sunday with rhinorrhea, sore throat, body aches and progressively worsening cough and dyspnea with Covid positive testing upon ED presentation. #1. Acute Hypoxic Respiratory Failure secondary to Acute Bilateral Pneumonia secondary to Acute Viral Syndrome, COVID-19: Patient evaluated while still in the ED bed, given concerns she was transitioned from PCU to ICU status, maintaining Covid precautions through 01/16/2021, CTPA with no obvious evidence of PE with bilateral Covid pneumonia, PRN albuterol, HOB, IS parameters w/ pending sputum cultures, continue supportive care including q 2 hour turning including prone given no prone bed availability and judicious hydration, closely monitor for worsening status for ARDS and multiorgan failure, initiated and continued on IV decadron x 10 doses, given presentation also initiated on IV remdesivir, given BIPAP transition ID consulted and following initiation and continued baricitinib. 01/06/2021 patient with some anxiety vacillating between BiPAP and air Vo. Currently patient is stabilized and is using BiPAP nightly and air Vo during the day. Given continued improvement will plan transition to the PCU 01/07/2021. Patient is a difficult stick therefore pending PICC placement. #2. Acute mild renal insufficiency secondary to acute presentation #1, likely also poor intake: Admission BUN/Cr 27/1.53, prior baseline creatinine noted to be 0.6-0.9. Judicious hydration given acute presentation #1, temporarily holding patient lisinopril and hydrochlorothiazide, 01/05/2021 BUN/creatinine 25/0.8 with restart on patient lisinopril and hydrochlorothiazide. 01/07/2021 BUN/creatinine 29/0.74. #3. Diabetes mellitus type II with diabetic neuropathy: Hold oral home regimen, continue home gabapentin regimen, given hyperglycemia initiated on moderate dose insulin glargine nightly per network engineer, when appropriate ADA diet, accu checks w/ ISS. #4. Anxiety and depression: We will continue patient home Cymbalta and Klonopin regimen however hold if concerns about worsening renal function or sedation. From current list patient also listed on citalopram, given usage of Cymbalta especially at 90 mg dose, citalopram held. #5. Chronic Asthma/? COPD: Continued on BiPAP as noted above #1, hold patient home inhalers and transition to ATC duonebs, PRN albuterol, HOB, IS parameters. #6. Hypertension: Given renal function improvement will continue metoprolol and add back lisinopril as well as hydrochlorothiazide, as needed IV hydralazine. #7. Hyperlipidemia: Not on statin, defer to outpatient. #8. Morbid Obesity: Weight loss and lifestyle changes encouraged. #9. TAMMI: Normal uses BiPAP nightly, settings adjusted per network engineer. #10. DVT prophylaxis: SCDs, Lovenox. #11. CODE status: Patient does not have healthcare power of mergers and acquisitions attorney nor living will in place. Full Code status. Charges/Coding Visit Charges Inpatient E&M: 59577 Subs Hosp L2
--- NOTE | 2021-01-07 06:51 | PN.CC_ITS ---
Assessment & Plan Assessment/Plan (1) Acute respiratory failure with hypoxia: (2) Pneumonia due to 2019 novel coronavirus: (3) TAMMI (obstructive sleep apnea): (4) Morbid obesity: (5) Type 2 diabetes mellitus: QUALIFIERS: Diabetes mellitus complication status: with other specified complication Diabetes mellitus manager terminal insulin use: without manager terminal use Qualified Code(s): E11.69 - Type 2 diabetes mellitus with other specified complication PLAN: RECOMMENDATIONS: 1. Continue remdesivir, Decadron and baricitinib 2. Continue BiPAP therapy, at a minimum, with naps and nightly. 3. Continue to wean FiO2 as tolerated to maintain oxygen saturations at or above 90%. 4. Awake prone positioning was encouraged. 5. IV Lasix as needed to maintain euvolemic state. IMPRESSIONS: 1. Acute hypoxic respiratory failure secondary to Covid pneumonia The patient presented to the hospital with COVID-19 pneumonia with symptoms that initially started around December 29. Accordingly, the patient has been initiated on remdesivir and Decadron. Given further respiratory decompensation, she was also placed on baricitinib. Her respiratory status is slowly improving. Plan to continue BiPAP therapy, at a minimum, with naps and nightly. The patient can be continued on heated high flow oxygen as tolerated to maintain saturations at or above 90%. Continue twice daily Lovenox. 2. Diabetes mellitus type 2 Continue Lantus and sliding scale insulin coverage. 3. Fibromyalgia/morbid obesity/tobacco abuse/allergic rhinitis/partially vaccinated status Complicates care, management, recovery and prognosis. Continue baseline anxiolytic therapy. Physical therapy to work with the patient. This note was generated with [employer] dictation software. It may contain incorrect words, spelling, and punctuation that were not noted in checking the note before signing. Subjective Subjective The patient was seen and examined at the bedside this morning. Events from the last 24 hours have been reviewed. The patient is currently afebrile, hemodynamically stable and maintaining appropriate oxygen saturations on Airvo heated high flow with an FiO2 requirement of 65% and flow rate of 60 L/min. The patient once again tolerated BiPAP overnight with an FiO2 of 40%. The patient remains on remdesivir, twice daily Lovenox, Decadron and baricitinib. Objective Data Objective Data The patient's most recent lab work, culture data and imaging studies have all been personally reviewed. Rapid coronavirus antigen testing was positive on January 04. Vital Signs: Vital Signs Temp Pulse Resp BP Pulse Ox 97.1 F L 66 19 H 156/94 H 100 01/07/21 04:00 01/07/21 06:00 01/07/21 06:00 01/07/21 06:00 01/07/21 06:00 Oxygen Flow Rate (L/min) 60 Oxygen Delivery Method Airvo Weight: 174.2 kg Body Mass Index (BMI) 62.5 Intake & Output: Intake and Output for Last 24 Hours 01/05/21 01/06/21 01/07/21 23:59 23:59 23:59 Intake Total 1173.5 / 1181.5 913 / 913 Output Total 600 / 600 1450 / 1450 Balance 573.5 / 581.5 -537 / -537 Lab / Micro Data Attestation: I reviewed the patient's lab results. Result Diagrams: 01/07/21 07:40 01/07/21 07:40 Labs: Laboratory Results - last 24 hr 01/06/21 08:09: POC Glucose 343 H 01/06/21 10:51: POC Glucose 332 H 01/06/21 16:07: POC Glucose 382 H 01/06/21 21:09: POC Glucose 426 H Micro: Microbiology 01/04/21 01:30 Nasal Secretion SARS-CoV-2 Antigen (Rapid) - Final SARS-CoV-2 (COVID 19) Physical Exam Const alert General Appearance: cooperative Nutritional Appearance: morbidly obese HEENT normocephalic and head/scalp atraumatic Eyes PERRL, EOMs intact bilaterally and conjunctivae normal Neck supple General: trachea midline Chest inspection of chest normal Resp Auscultation: diminished lung sounds Cardio regular rate and regular rhythm GI normal to inspection, nondistended, normoactive bowel sounds Extremity no clubbing, cyanosis or edema Skin no rashes or lesions noted Neuro CN's II-XII intact bilaterally, moves all extremities and no focal motor deficits Psych Mood & Affect: anxious Charges/Coding Visit Charges Inpatient E&M: 75700 Subs Hosp L3
[2021-01-07] MEDS: Ipratropium/Albuterol Sulfate 3 ML AMPUL.NEB INHALATION ×3 (07:07→20:20)
[2021-01-07 07:59] LABS: Hematocrit 35.6 % (37-47); Mean Corp Hgb Conc 33.7 g/dL (32-36); Mean Corpuscular Hgb 29.2 pg (27.0-32.0); Mean Corpuscular Volume 86.6 fL (81-99); Platelet Count 244 K/mm3 (150-450); RBC Distribution Width CV 15.1 % (11.6-14.6); Red Blood Count 4.11 M/mm3 (4.2-5.4); White Blood Count 6.4 K/mm3 (4.4-11.0)
[2021-01-07 08:17] LABS: ALB/GLOB Ratio 0.5 RATIO (0.9-2.4); AST(SGOT) 22 U/L (15-37); Alanine Aminotransfer ALT/SGPT 32 U/L (13-56); Albumin, Serum 2.4 g/dL (3.2-5.0); Alkaline Phosphatase 82 U/L (45-117); Anion Gap 8 (5-15); BUN 29 mg/dL (7-18); BUN/Creat Ratio 38.9 RATIO (10-20); Calcium,Total 9.2 mg/dL (8.5-10.1); Chloride 103 mmol/L (98-107); Creatinine, Serum 0.74 mg/dL (0.55-1.02); EST Glomerular Filtration Rate 86 mL/min (>60); Est Glom Filt Rate - Afr Amer 104 mL/min (>60); Estimated Creatinine Clearance 80.41 ml/min; Globulin 4.7 g/dL (2.2-4.2); Glucose 346 mg/dL (74-106); Potassium 3.9 mmol/L (3.5-5.1); Protein, Total 7.1 g/dL (6.4-8.2); Sodium Level 134 mmol/L (136-145)
[2021-01-07] MEDS: Insulin Lispro 100 UNIT/ML INSULN.PEN SC ×3 (09:13→21:36)
[2021-01-07 09:25] LABS: Bedside Glucose 320 mg/dL (70-110)
[2021-01-07] MEDS: Lisinopril 20 MG Tablet PO (10:22)
[2021-01-07] MEDS: Gabapentin 600 MG Tablet PO ×3 (10:22→18:05)
[2021-01-07] MEDS: Enoxaparin 40 MG/0.4 ML Syringe SC ×2 (10:22→21:36)
[2021-01-07] MEDS: Loratadine 10 MG Tablet PO (10:22)
[2021-01-07] MEDS: Meloxicam 7.5 MG Tablet PO (10:22)
[2021-01-07] MEDS: hydroCHLOROthiazide 25 MG Tablet PO (10:22)
[2021-01-07] MEDS: dexAMETHasone 4 MG/ML Vial 6 MG IV (10:22)
[2021-01-07] MEDS: DULoxetine Hcl 30 MG Capsule 90 MG PO (10:22)
--- NOTE | 2021-01-07 11:13 | CASEMGMT ---
Addendum entered by Zac Mayo 01/07/21 12:33: TC received from [facility]. She states d/t current high O2 needs, they are not able to accept pt. She states once pt is closer to being ready for discharge, to discuss acceptance w/them again at that time. Addendum entered by Zac Mayo 01/07/21 11:19: Pt did state she has 2-3 steps to enter her home that may be difficult. She states she feels she will be okay w/assistance from her and they also have a friend that may be able to assist them as well. Her will take her home @ d/c. Original Note: SARAH BRANTLEY NOTE: Per Dr Vargas, pt may possibly be ready for discharge over the weekend, if pt able to tolerate less O2 requirements. PT/OT notes have been reviewed. Additional therapy is recommended. SARAH BRANTLEY placed TC to pt in her room. Pt states, if O2 is needed @ home, she prefers [employer]. Pt is also interested in [facility] and initially stated no preference of agency. Pt then stated to check w/[facility] 1st. She states does not want an aide at this time. She states she would also like a walker. TC to [facility] and referral made. She was notified pt may be medically ready for discharge over the weekend. Awaiting call back re: acceptance. Basilio BANSAL RN, CM
[2021-01-07 11:26] LABS: Bedside Glucose 373 mg/dL (70-110)
--- NOTE | 2021-01-07 11:38 | NURSING ---
report called to Katie SMITH [phone]
[2021-01-07 17:15] LABS: Bedside Glucose 472 mg/dL (70-110)
[2021-01-07] MEDS: Insulin Lispro 100 UNIT/ML INSULN.PEN 20 UNIT SC (18:05)
[2021-01-07] MEDS: LORazepam 0.5 MG Tablet PO (21:35)
[2021-01-07 21:55] LABS: Bedside Glucose 442 mg/dL (70-110)
[2021-01-08] VITALS (19 sets, daily range): BP systolic 111–157; BP diastolic 59–81; PULSE 69–95; RESP 12–30; TEMP 35.5–37.1; O2SAT 90–98
[2021-01-08] MEDS: Insulin Lispro 100 UNIT/ML INSULN.PEN SC ×4 (06:47→22:27)
[2021-01-08 07:00] LABS: Bedside Glucose 297 mg/dL (70-110)
[2021-01-08 07:16] LABS: Hematocrit 37.3 % (37-47); Hemoglobin 12.1 g/dL (12.0-15.0); Mean Corp Hgb Conc 32.4 g/dL (32-36); Mean Corpuscular Hgb 28.5 pg (27.0-32.0); Mean Platelet Vol. 9.9 fl (6.2-12.0); Platelet Count 284 K/mm3 (150-450); RBC Distribution Width CV 14.7 % (11.6-14.6); RBC Distribution Width SD 47.5 fl (35.1-43.9); Red Blood Count 4.24 M/mm3 (4.2-5.4); White Blood Count 7.2 K/mm3 (4.4-11.0)
--- NOTE | 2021-01-08 07:21 | PN.CC_ITS ---
Assessment & Plan Assessment/Plan (1) Acute respiratory failure with hypoxia: (2) Pneumonia due to 2019 novel coronavirus: (3) TAMMI (obstructive sleep apnea): (4) Morbid obesity: (5) Type 2 diabetes mellitus: QUALIFIERS: Diabetes mellitus complication status: with other specified complication Diabetes mellitus equipment operator intermodal yard insulin use: without equipment operator intermodal yard use Qualified Code(s): E11.69 - Type 2 diabetes mellitus with other specified complication PLAN: RECOMMENDATIONS: 1. Continue remdesivir, Decadron and baricitinib 2. Continue BiPAP therapy, at a minimum, with naps and nightly. 3. Continue to wean supplemental oxygen as tolerated to maintain saturations at or above 90%. 4. Awake prone positioning was encouraged. 5. IV Lasix as needed to maintain euvolemic state. 6. Encourage incentive spirometer use and mobilize patient as tolerated. IMPRESSIONS: 1. Acute hypoxic respiratory failure secondary to Covid pneumonia The patient presented to the hospital with COVID-19 pneumonia with symptoms that initially started around December 29. Accordingly, the patient has been initiated on remdesivir and Decadron. Given further respiratory decompensation, she was also placed on baricitinib. Her respiratory status is slowly improving. The patient will be continued on Pap therapy on a nightly basis. Continue sup plemental oxygen throughout the day and wean to maintain saturations at or above 90%. Continue twice daily Lovenox. 2. Diabetes mellitus type 2 Continue Lantus and sliding scale insulin coverage. 3. Fibromyalgia/morbid obesity/tobacco abuse/allergic rhinitis/partially vaccinated status Complicates care, management, recovery and prognosis. Continue baseline anxiolytic therapy. Physical therapy to work with the patient. This note was generated with [employer] dictation software. It may contain incorrect words, spelling, and punctuation that were not noted in checking the note before signing. Subjective Subjective The patient was seen and examined at the bedside this morning. Events from the last 24 hours have been reviewed. The patient is currently afebrile, hemodynamically stable and maintaining appropriate oxygen saturations on BiPAP with an FiO2 requirement of 35%. The patient was able to be weaned to nasal cannula oxygen at 12 L/min yesterday. She is currently documented to be overall net +700 mL for the hospitalization. The patient remains on remdesivir, twice daily Lovenox, Decadron and baricitinib. Objective Data Objective Data The patient's most recent lab work, culture data and imaging studies have all been personally reviewed. Rapid coronavirus antigen testing was positive on January 04. Vital Signs: Vital Signs Temp Pulse Resp BP Pulse Ox 96.5 F L 86 27 H 115/59 L 97 01/08/21 03:45 01/08/21 05:03 01/08/21 05:03 01/08/21 03:45 01/08/21 05:03 Oxygen Flow Rate (L/min) 12 Oxygen Delivery Method Bi-pap Weight: 174.4 kg Body Mass Index (BMI) 62.5 Intake & Output: Intake and Output for Last 24 Hours 01/06/21 01/07/21 01/08/21 23:59 23:59 23:59 Intake Total 913 / 913 790 / 790 240 / 240 Output Total 1450 / 1450 800 / 800 Balance -537 / -537 -10 / -10 240 / 240 Lab / Micro Data Attestation: I reviewed the patient's lab results. Result Diagrams: 01/08/21 06:46 01/08/21 06:46 Labs: Laboratory Results - last 24 hr 01/07/21 07:40: WBC 6.4, RBC 4.11 L, Hgb 12.0, Hct 35.6 L, MCV 86.6, MCH 29.2, MCHC 33.7, RDW Std Deviation 48.0 H, RDW Coeff of Milo 15.1 H, Plt Count 244, MPV 10.0 01/07/21 07:40: Sodium 134 L, Potassium 3.9, Chloride 103, Carbon Dioxide 23.0, Anion Gap 8, BUN 29 H, Creatinine 0.74, Estim Creat Clear Calc 80.41, Est GFR (MDRD) Af Amer 104, Est GFR (MDRD) Non-Af 86, BUN/Creatinine Ratio 38.9 H, Glucose 346 H, Calcium 9.2, Total Bilirubin 0.40, AST 22, ALT 32, Alkaline Phosphatase 82, Total Protein 7.1, Albumin 2.4 L, Globulin 4.7 H, Albumin/Globulin Ratio 0.5 L 01/07/21 09:12: POC Glucose 320 H 01/07/21 11:17: POC Glucose 373 H 01/07/21 17:07: POC Glucose 472 H* 01/07/21 21:34: POC Glucose 442 H 01/08/21 06:41: POC Glucose 297 H 01/08/21 06:46: WBC 7.2, RBC 4.24, Hgb 12.1, Hct 37.3, MCV 88.0, MCH 28.5, MCHC 32.4, RDW Std Deviation 47.5 H, RDW Coeff of Milo 14.7 H, Plt Count 284, MPV 9.9 Micro: Microbiology 01/04/21 01:30 Nasal Secretion SARS-CoV-2 Antigen (Rapid) - Final SARS-CoV-2 (COVID 19) Physical Exam Const alert General Appearance: cooperative Nutritional Appearance: morbidly obese HEENT normocephalic and head/scalp atraumatic Eyes PERRL, EOMs intact bilaterally and conjunctivae normal Neck supple General: trachea midline Chest inspection of chest normal Resp Auscultation: diminished lung sounds Cardio regular rate and regular rhythm GI normal to inspection, nondistended, normoactive bowel sounds Extremity no clubbing, cyanosis or edema Skin no rashes or lesions noted Neuro CN's II-XII intact bilaterally, moves all extremities and no focal motor deficits Psych Mood & Affect: anxious Charges/Coding Visit Charges Inpatient E&M: 25527 Subs Hosp L2
[2021-01-08] MEDS: Ipratropium/Albuterol Sulfate 3 ML AMPUL.NEB INHALATION ×3 (07:37→19:45)
[2021-01-08 07:40] LABS: ALB/GLOB Ratio 0.5 RATIO (0.9-2.4); AST(SGOT) 18 U/L (15-37); Alanine Aminotransfer ALT/SGPT 28 U/L (13-56); Albumin, Serum 2.4 g/dL (3.2-5.0); Alkaline Phosphatase 81 U/L (45-117); Anion Gap 7 (5-15); BUN 28 mg/dL (7-18); BUN/Creat Ratio 35.3 RATIO (10-20); Calcium,Total 9.3 mg/dL (8.5-10.1); Chloride 103 mmol/L (98-107); Creatinine, Serum 0.79 mg/dL (0.55-1.02); EST Glomerular Filtration Rate 80 mL/min (>60); Est Glom Filt Rate - Afr Amer 97 mL/min (>60); Estimated Creatinine Clearance 75.32 ml/min; Globulin 4.6 g/dL (2.2-4.2); Glucose 298 mg/dL (74-106); Potassium 3.8 mmol/L (3.5-5.1); Sodium Level 135 mmol/L (136-145)
[2021-01-08] MEDS: Enoxaparin 40 MG/0.4 ML Syringe SC ×2 (08:43→22:26)
[2021-01-08] MEDS: dexAMETHasone 4 MG/ML Vial 6 MG IV (08:43)
[2021-01-08] MEDS: Meloxicam 7.5 MG Tablet PO (08:43)
[2021-01-08] MEDS: 0.9% Saline Lock 10 ML Syringe IV (08:43)
[2021-01-08] MEDS: Gabapentin 600 MG Tablet PO ×3 (08:44→17:27)
[2021-01-08] MEDS: Loratadine 10 MG Tablet PO (08:44)
[2021-01-08] MEDS: hydroCHLOROthiazide 25 MG Tablet PO (08:44)
[2021-01-08] MEDS: Lisinopril 20 MG Tablet PO (08:44)
[2021-01-08] MEDS: DULoxetine Hcl 30 MG Capsule 90 MG PO (08:44)
[2021-01-08 12:00] LABS: Bedside Glucose 385 mg/dL (70-110)
--- NOTE | 2021-01-08 15:49 | PCM.PN.HOSP ---
Subjective Subjective Patient does indicate that overall she is feeling much better. She states she was considering getting the vaccine but just did not get it in time. She has been able to be weaned to heated high flow nasal cannula at 12 L with sats at 95%. Overall she seems to become improving. No acute complaints today. Objective Data Objective Data Vital Signs: Vital Signs Temp Pulse Resp BP Pulse Ox 98.5 F 82 20 H 157/73 H 95 01/08/21 11:48 01/08/21 13:34 01/08/21 13:34 01/08/21 11:48 01/08/21 11:48 Oxygen Flow Rate (L/min) 12 Oxygen Delivery Method High Flow Weight: 174.4 kg Body Mass Index (BMI) 62.5 Intake & Output: Intake and Output for Last 24 Hours 01/06/21 01/07/21 01/08/21 23:59 23:59 23:59 Intake Total 913 / 913 790 / 790 240 / 240 Output Total 1450 / 1450 800 / 800 Balance -537 / -537 -10 / -10 240 / 240 Lab / Micro Data Result Diagrams: 01/08/21 06:46 01/08/21 06:46 Labs: Laboratory Results - last 24 hr 01/07/21 17:07: POC Glucose 472 H* 01/07/21 21:34: POC Glucose 442 H 01/08/21 06:41: POC Glucose 297 H 01/08/21 06:46: WBC 7.2, RBC 4.24, Hgb 12.1, Hct 37.3, MCV 88.0, MCH 28.5, MCHC 32.4, RDW Std Deviation 47.5 H, RDW Coeff of Milo 14.7 H, Plt Count 284, MPV 9.9 01/08/21 06:46: Sodium 135 L, Potassium 3.8, Chloride 103, Carbon Dioxide 25.0, Anion Gap 7, BUN 28 H, Creatinine 0.79, Estim Creat Clear Calc 75.32, Est GFR (MDRD) Af Amer 97, Est GFR (MDRD) Non-Af 80, BUN/Creatinine Ratio 35.3 H, Glucose 298 H, Calcium 9.3, Total Bilirubin 0.40, AST 18, ALT 28, Alkaline Phosphatase 81, Total Protein 7.0, Albumin 2.4 L, Globulin 4.6 H, Albumin/Globulin Ratio 0.5 L 01/08/21 11:42: POC Glucose 385 H Micro: Microbiology 01/08/21 11:03 Sputum, Expectorated/Coughed Gram Stain - Preliminary 01/04/21 01:30 Nasal Secretion SARS-CoV-2 Antigen (Rapid) - Final SARS-CoV-2 (COVID 19) Physical Exam Const alert, oriented x3 and no apparent distress Constitutional Narrative: Morbidly obese middle-aged white female sitting up in a chair reclined at the bedside, appears comfortable and nontoxic, mild tachypnea but no signs of respiratory extremis Exam Limitations: no limitations Nutritional Appearance: morbidly obese HEENT head/scalp atraumatic and moist oral mucous membranes HEENT Narrative: No thrush, Mallampati 3 Head and Scalp: normocephalic Resp normal respiratory effort, no retractions, no use of accessory muscles and clear to auscultation bilaterally Resp Narrative: Diffusely diminished, breath sounds are distant secondary body habitus Auscultation: Negative for crackles, rales, rhonchi or wheezes Cardio regular rate, regular rhythm, S1 normal heart sound, S2 normal heart sound, no murmurs, no rub, no gallops, no clicks and no JVD Cardio Narrative: Distant secondary to body habitus GI normal to inspection, nondistended, normoactive bowel sounds, soft to palpation, non-tender and non-distended Extremity no clubbing, cyanosis or edema Peripheral Pulses: Yes pulses 2+ throughout Neuro oriented x3, moves all extremities and no focal motor deficits Sensorium / Orientation: awake and alert Speech: speech normal Psych affect normal Assessment & Plan Assessment/Plan (1) Acute respiratory failure with hypoxia: (2) Pneumonia due to 2019 novel coronavirus: (3) Type 2 diabetes mellitus: QUALIFIERS: Diabetes mellitus superintendent container terminal insulin use: without superintendent container terminal use Diabetes mellitus complication status: with other specified complication Qualified Code(s): E11.69 - Type 2 diabetes mellitus with other specified complication PLAN: Acute hypoxic respiratory failure secondary to COVID-19 pneumonia -Patient is unvaccinated -Symptom onset 12/29 and therefore will need isolation until 01/18/2021 -Decadron day 5 of 10 -Patient has completed remdesivir -Continue baricitinib day 5 14 -Patient currently on 12 L heated high flow nasal cannula -Wean as able -Continue prone as able, I-S, Acapella -Out of bed -Appreciate pulmonary/ID input DM-2 with steroid-induced hyperglycemia -Patient is not insulin-dependent at baseline -Hold home oral agents -Increase Lantus from 25units twice daily to 30 units twice daily -Add scheduled log 10 units 3 times daily -Continue SSI -Accu-Cheks before meals and at bedtime JASWINDER -Resolved Hypertension -Continue home lisinopril, metoprolol, and hydrochlorothiazide Diabetic neuropathy -Continue home gabapentin Depression/anxiety -Continue home citalopram -Continue home Xanax -Continue home Cymbalta History of asthma -Hold home inhalers -Continue duo nebs and albuterol Morbid obesity -Complicates overall treatment, prognosis, outcomes -Recommend weight loss TAMMI -Continue nocturnal BiPAP DVT prophylaxis -SCDs -Lovenox 40 mg twice daily CODE STATUS -Full code Charges/Coding Visit Charges Inpatient E&M: 37177 Subs Hosp L2
[2021-01-08] MEDS: Insulin Lispro 100 UNIT/ML INSULN.PEN 10 UNIT SC (17:27)
[2021-01-08] MEDS: Acetaminophen 325 MG Tablet 650 MG PO (17:27)
[2021-01-08 17:46] LABS: Bedside Glucose 468 mg/dL (70-110)
[2021-01-08] MEDS: LORazepam 0.5 MG Tablet PO (22:26)
[2021-01-08 22:51] LABS: Bedside Glucose 348 mg/dL (70-110)
[2021-01-09] VITALS (16 sets, daily range): BP systolic 100–124; BP diastolic 51–64; PULSE 74–125; RESP 12–34; TEMP 36.3–37.1; O2SAT 90–99
[2021-01-09] MEDS: Ipratropium/Albuterol Sulfate 3 ML AMPUL.NEB INHALATION ×3 (06:48→19:15)
[2021-01-09 07:47] LABS: Hematocrit 35.4 % (37-47); Hemoglobin 11.9 g/dL (12.0-15.0); Mean Corp Hgb Conc 33.6 g/dL (32-36); Mean Corpuscular Volume 86.3 fL (81-99); Mean Platelet Vol. 9.9 fl (6.2-12.0); Platelet Count 298 K/mm3 (150-450); RBC Distribution Width CV 14.5 % (11.6-14.6); RBC Distribution Width SD 46.2 fl (35.1-43.9); White Blood Count 9.8 K/mm3 (4.4-11.0)
[2021-01-09 08:01] LABS: ALB/GLOB Ratio 0.5 RATIO (0.9-2.4); AST(SGOT) 13 U/L (15-37); Alanine Aminotransfer ALT/SGPT 25 U/L (13-56); Albumin, Serum 2.4 g/dL (3.2-5.0); Alkaline Phosphatase 80 U/L (45-117); Anion Gap 7 (5-15); BUN 25 mg/dL (7-18); BUN/Creat Ratio 33.5 RATIO (10-20); Calcium,Total 8.9 mg/dL (8.5-10.1); Chloride 103 mmol/L (98-107); Creatinine, Serum 0.75 mg/dL (0.55-1.02); EST Glomerular Filtration Rate 86 mL/min (>60); Est Glom Filt Rate - Afr Amer 104 mL/min (>60); Estimated Creatinine Clearance 79.34 ml/min; Globulin 4.5 g/dL (2.2-4.2); Glucose 272 mg/dL (74-106); Potassium 3.8 mmol/L (3.5-5.1); Protein, Total 6.9 g/dL (6.4-8.2); Sodium Level 135 mmol/L (136-145)
[2021-01-09] MEDS: DULoxetine Hcl 30 MG Capsule 90 MG PO (08:09)
[2021-01-09] MEDS: 0.9% Saline Lock 10 ML Syringe IV ×2 (08:09→17:11)
[2021-01-09] MEDS: Metoprolol Tartrate 50 MG Tablet PO ×2 (08:09→21:23)
[2021-01-09] MEDS: Gabapentin 600 MG Tablet PO ×3 (08:09→17:11)
[2021-01-09] MEDS: Meloxicam 7.5 MG Tablet PO (08:10)
[2021-01-09] MEDS: Loratadine 10 MG Tablet PO (08:10)
[2021-01-09] MEDS: hydroCHLOROthiazide 25 MG Tablet PO (08:10)
[2021-01-09] MEDS: Lisinopril 20 MG Tablet PO (08:10)
[2021-01-09] MEDS: Enoxaparin 40 MG/0.4 ML Syringe SC ×2 (08:11→21:22)
[2021-01-09] MEDS: dexAMETHasone 4 MG/ML Vial 6 MG IV (08:11)
[2021-01-09] MEDS: Insulin Lispro 100 UNIT/ML INSULN.PEN SC ×4 (08:14→21:28)
[2021-01-09] MEDS: Insulin Lispro 100 UNIT/ML INSULN.PEN 10 UNIT SC (08:14)
--- NOTE | 2021-01-09 08:26 | PCM.PN.INT ---
Assessment & Plan Assessment/Plan (1) Acute respiratory failure with hypoxia: (2) Pneumonia due to 2019 novel coronavirus: (3) TAMMI (obstructive sleep apnea): (4) Morbid obesity: (5) Type 2 diabetes mellitus: QUALIFIERS: Diabetes mellitus complication status: with other specified complication Diabetes mellitus terminal system operator insulin use: without terminal system operator use Qualified Code(s): E11.69 - Type 2 diabetes mellitus with other specified complication PLAN: RECOMMENDATIONS: 1. Continue Decadron and baricitinib 2. Continue BiPAP therapy, at a minimum, with naps and nightly. 3. Continue to wean supplemental oxygen as tolerated to maintain saturations at or above 90%. 4. Awake prone positioning was encouraged. 5. IV Lasix as needed to maintain euvolemic state. 6. Encourage incentive spirometer use and mobilize patient as tolerated. IMPRESSIONS: 1. Acute hypoxic respiratory failure secondary to Covid pneumonia The patient presented to the hospital with COVID-19 pneumonia with symptoms that initially started around December 29. Accordingly, the patient has been initiated on remdesivir and Decadron. Given further respiratory decompensation, she was also placed on baricitinib. Her respiratory status is slowly improving. The patient will be continued on Pap therapy on a nightly basis. Continue supplemental oxygen throughout the day and wean to maintain saturations at or above 90%. Continue twice daily Lovenox. 2. Diabetes mellitus type 2 Continue Lantus and sliding scale insulin coverage. 3. Fibromyalgia/morbid obesity/tobacco abuse/allergic rhinitis/partially vaccinated status Complicates care, management, recovery and prognosis. Continue baseline anxiolytic therapy. Physical therapy to work with the patient. This note was generated with [employer] dictation software. It may contain incorrect words, spelling, and punctuation that were not noted in checking the note before signing. Subjective Subjective The patient was seen and examined at the bedside this morning. Events from the last 24 hours have been reviewed. The patient is currently afebrile, hemodynamically stable and maintaining appropriate saturations on nasal cannula supplemental oxygen. She was once again tolerant of BiPAP overnight with an FiO2 of 35%. She is currently documented to be overall net +1.6L for the hospitalization. The patient has completed her remdesivir. She remains on twice daily Lovenox, Decadron and baricitinib. She is anxious for discharge home. Objective Data Objective Data The patient's most recent lab work, culture data and imaging studies have all been personally reviewed. Rapid coronavirus antigen testing was positive on January 04. Vital Signs: Vital Signs Temp Pulse Resp BP Pulse Ox 98.0 F 125 H 20 H 114/61 99 01/09/21 04:38 01/09/21 08:09 01/09/21 04:38 01/09/21 04:38 01/09/21 04:38 Oxygen Flow Rate (L/min) 9 Oxygen Delivery Method Bi-pap Weight: 170.233 kg Body Mass Index (BMI) 62.5 Intake & Output: Intake and Output for Last 24 Hours 01/07/21 01/08/21 01/09/21 23:59 23:59 23:59 Intake Total 790 / 790 1450 / 1450 Output Total 800 / 800 300 / 300 Balance -10 / -10 1450 / 1450 -300 / -300 Lab / Micro Data Attestation: I reviewed the patient's lab results. Result Diagrams: 01/09/21 07:30 01/09/21 07:30 Labs: Laboratory Results - last 24 hr 01/08/21 11:42: POC Glucose 385 H 01/08/21 17:21: POC Glucose 468 H* 01/08/21 22:24: POC Glucose 348 H 01/09/21 07:30: WBC 9.8, RBC 4.10 L, Hgb 11.9 L, Hct 35.4 L, MCV 86.3, MCH 29.0, MCHC 33.6, RDW Std Deviation 46.2 H, RDW Coeff of Milo 14.5, Plt Count 298, MPV 9.9 01/09/21 07:30: Sodium 135 L, Potassium 3.8, Chloride 103, Carbon Dioxide 25.0, Anion Gap 7, BUN 25 H, Creatinine 0.75, Estim Creat Clear Calc 79.34, Est GFR (MDRD) Af Amer 104, Est GFR (MDRD) Non-Af 86, BUN/Creatinine Ratio 33.5 H, Glucose 272 H, Calcium 8.9, Total Bilirubin 0.30, AST 13 L, ALT 25, Alkaline Phosphatase 80, Total Protein 6.9, Albumin 2.4 L, Globulin 4.5 H, Albumin/Globulin Ratio 0.5 L Micro: Microbiology 01/08/21 11:03 Sputum, Expectorated/Coughed Gram Stain - Preliminary 01/04/21 01:30 Nasal Secretion SARS-CoV-2 Antigen (Rapid) - Final SARS-CoV-2 (COVID 19) Physical Exam Const alert Constitutional Narrative: Currently sitting in bedside recliner eating breakfast. General Appearance: cooperative Nutritional Appearance: morbidly obese HEENT normocephalic and head/scalp atraumatic Eyes PERRL, EOMs intact bilaterally and conjunctivae normal Neck supple General: trachea midline Chest inspection of chest normal Resp Auscultation: diminished lung sounds Cardio regular rate and regular rhythm GI normal to inspection, nondistended, normoactive bowel sounds Extremity no clubbing, cyanosis or edema Skin no rashes or lesions noted Neuro CN's II-XII intact bilaterally, moves all extremities and no focal motor deficits Psych Mood & Affect: anxious Charges/Coding Visit Charges Inpatient E&M: 87947 Subs Hosp L2
[2021-01-09 09:15] LABS: Bedside Glucose 264 mg/dL (70-110)
--- NOTE | 2021-01-09 12:09 | PN.HOSP_ITS ---
Subjective Subjective Patient had some SVT this morning. She evidently has a history of this and is on metoprolol at baseline. I did resolve with bearing down in her home metoprolol was reinitiated. He has been able to be weaned to 7 L nasal cannula with a sat of 96%. Objective Data Objective Data Vital Signs: Vital Signs Temp Pulse Resp BP Pulse Ox 98.0 F 115 H 20 H 120/64 96 01/09/21 08:30 01/09/21 08:30 01/09/21 08:30 01/09/21 08:30 01/09/21 08:30 Oxygen Flow Rate (L/min) 7 Oxygen Delivery Method Nasal Cannula Weight: 170.233 kg Body Mass Index (BMI) 62.5 Intake & Output: Intake and Output for Last 24 Hours 01/07/21 01/08/21 01/09/21 23:59 23:59 23:59 Intake Total 790 / 790 1450 / 1450 Output Total 800 / 800 300 / 300 Balance -10 / -10 1450 / 1450 -300 / -300 Lab / Micro Data Result Diagrams: 01/09/21 07:30 01/09/21 07:30 Labs: Laboratory Results - last 24 hr 01/08/21 17:21: POC Glucose 468 H* 01/08/21 22:24: POC Glucose 348 H 01/09/21 07:30: WBC 9.8, RBC 4.10 L, Hgb 11.9 L, Hct 35.4 L, MCV 86.3, MCH 29.0, MCHC 33.6, RDW Std Deviation 46.2 H, RDW Coeff of Milo 14.5, Plt Count 298, MPV 9.9 01/09/21 07:30: Sodium 135 L, Potassium 3.8, Chloride 103, Carbon Dioxide 25.0, Anion Gap 7, BUN 25 H, Creatinine 0.75, Estim Creat Clear Calc 79.34, Est GFR (MDRD) Af Amer 104, Est GFR (MDRD) Non-Af 86, BUN/Creatinine Ratio 33.5 H, Glucose 272 H, Calcium 8.9, Total Bilirubin 0.30, AST 13 L, ALT 25, Alkaline Phosphatase 80, Total Protein 6.9, Albumin 2.4 L, Globulin 4.5 H, Albumin/Globulin Ratio 0.5 L 01/09/21 08:05: POC Glucose 264 H Micro: Microbiology 01/08/21 11:03 Sputum, Expectorated/Coughed Gram Stain - Preliminary 01/08/21 11:03 Sputum, Expectorated/Coughed Respiratory Culture - Preliminary Gram negative sandeep 01/04/21 01:30 Nasal Secretion SARS-CoV-2 Antigen (Rapid) - Final SARS-CoV-2 (COVID 19) Physical Exam Const alert, oriented x3 and no apparent distress Constitutional Narrative: Morbidly obese middle-aged white female sitting up in a chair reclined at the bedside, appears comfortable and nontoxic General Appearance: cooperative Exam Limitations: no limitations Nutritional Appearance: morbidly obese HEENT normocephalic, head/scalp atraumatic and moist oral mucous membranes HEENT Narrative: Mallampati 3, no thrush Head and Scalp: normocephalic Lymph Lymphatic: no lymphadenopathy noted Resp normal respiratory effort, normal air movement, no retractions, no use of accessory muscles and clear to auscultation bilaterally Resp Narrative: Diffusely diminished, breath sounds are distant secondary body habitus Auscultation: Negative for crackles, rales, rhonchi or wheezes Cardio regular rate, regular rhythm, S1 normal heart sound, S2 normal heart sound, no murmurs, no rub, no gallops, no clicks and no JVD Cardio Narrative: Distant secondary to body habitus GI normal to inspection, nondistended, normoactive bowel sounds, soft to palpation, non-tender and non-distended GI Narrative: obese Extremity normal capillary refill and no clubbing, cyanosis or edema Peripheral Pulses: Yes pulses 2+ throughout Skin General Skin Exam: turgor normal Neuro oriented x3, CN's II-XII intact bilaterally, moves all extremities and no focal motor deficits Sensorium / Orientation: awake and alert Speech: speech normal Assessment & Plan Assessment/Plan (1) Acute respiratory failure with hypoxia: (2) Pneumonia due to 2019 novel coronavirus: (3) Type 2 diabetes mellitus: QUALIFIERS: Diabetes mellitus complication status: with other specified complication Diabetes mellitus long filler cigar roller machine insulin use: without snf use Qualified Code(s): E11.69 - Type 2 diabetes mellitus with other specified complication PLAN: Acute hypoxic respiratory failure secondary to COVID-19 pneumonia -Patient is unvaccinated -Symptom onset 12/29 and therefore will need isolation until 01/18/2021 -Decadron day 6 of 10 -Patient has completed remdesivir -Continue baricitinib day -Patient currently on seven L heated high flow nasal cannula with an SPO2 of 96% -Wean as able -Continue prone as able, I-S, Acapella -Out of bed -Appreciate pulmonary/ID input Gram-negative pneumonia -Sputum culture with gram-negative rods-lactose word processing specialist -Start Zosyn -Follow-up on identification and sensitivities DM-2 with steroid-induced hyperglycemia -Patient is not insulin-dependent at baseline -Hold home oral agents -Blood sugars improved but still remain above goal -Increase Lantus from 30 units twice daily to 40 units twice daily -Increase scheduled log 15 units 3 times daily -Continue SSI -Accu-Cheks before meals and at bedtime -Blood sugar is 140-180 JASWINDER -Resolved SVT -Patient has history of SVT and is on metoprolol for this -Heart rate improved -Metoprolol was started then discontinue and now reinitiated Hypertension -Continue home lisinopril, metoprolol, and hydrochlorothiazide Diabetic neuropathy -Continue home gabapentin Depression/anxiety -Continue home citalopram -Continue home Xanax -Continue home Cymbalta History of asthma -Hold home inhalers -Continue duo nebs and albuterol Morbid obesity -Complicates overall treatment, prognosis, outcomes -Recommend weight loss TAMMI -Continue nocturnal BiPAP DVT prophylaxis -SCDs -Lovenox 40 mg twice daily CODE STATUS -Full code Charges/Coding Visit Charges Inpatient E&M: 06894 Subs Hosp L2
[2021-01-09] MEDS: Insulin Lispro 100 UNIT/ML INSULN.PEN 15 UNIT SC ×2 (12:39→17:10)
[2021-01-09 12:50] LABS: Bedside Glucose 355 mg/dL (70-110)
[2021-01-09 17:45] LABS: Bedside Glucose 447 mg/dL (70-110)
[2021-01-09] MEDS: LORazepam 0.5 MG Tablet PO (21:23)
[2021-01-09 21:40] LABS: Bedside Glucose 397 mg/dL (70-110)
[2021-01-10] VITALS (20 sets, daily range): BP systolic 103–140; BP diastolic 52–84; PULSE 76–103; RESP 12–27; TEMP 36.6–37.1; O2SAT 90–97
[2021-01-10 06:22] LABS: Hematocrit 36.2 % (37-47); Hemoglobin 11.9 g/dL (12.0-15.0); Mean Corp Hgb Conc 32.9 g/dL (32-36); Mean Corpuscular Hgb 28.8 pg (27.0-32.0); Mean Corpuscular Volume 87.7 fL (81-99); POSITIVE COUNT YES; POSITIVE MORPHOLOGY YES; Platelet Count 357 K/mm3 (150-450); RBC Distribution Width CV 14.6 % (11.6-14.6); Red Blood Count 4.13 M/mm3 (4.2-5.4); White Blood Count 10.8 K/mm3 (4.4-11.0)
[2021-01-10 06:40] LABS: Differential Indicated MANUAL DIFF
[2021-01-10] MEDS: Ipratropium/Albuterol Sulfate 3 ML AMPUL.NEB INHALATION ×3 (07:05→21:29)
[2021-01-10 07:11] LABS: Anion Gap 8 (5-15); BUN 25 mg/dL (7-18); BUN/Creat Ratio 30.9 RATIO (10-20); Calcium,Total 9.3 mg/dL (8.5-10.1); Chloride 105 mmol/L (98-107); Creatinine, Serum 0.81 mg/dL (0.55-1.02); EST Glomerular Filtration Rate 78 mL/min (>60); Est Glom Filt Rate - Afr Amer 95 mL/min (>60); Estimated Creatinine Clearance 73.46 ml/min; Glucose 259 mg/dL (74-106); Potassium 3.7 mmol/L (3.5-5.1); Sodium Level 139 mmol/L (136-145)
[2021-01-10 07:19] LABS: Absolute Lymphocyte Count 0.97 X10^3/uL (0.83-4.51); Absolute Neutrophil Count 8.6 X10^3/uL (2.0-7.7)
[2021-01-10 07:20] LABS: Atypical Lymphocyte 2+ %; Eosinophil 1 % (0-5); Lymphocyte 9 % (19-41); Metamyelocyte 1 % (0-1); Monocyte 4 % (0-10); Myelocyte 4 % (0-0); Neutrophil-Segmented 80 % (47-70); Platelet Estimate ADEQUATE (ADEQ); Promyelocyte 1 % (0-0); Total Cells Counted 100 (MANUAL DIFF)
[2021-01-10 07:21] LABS: Red Cell Morphology NORM C+C NORMAL (NORM C&C)
--- NOTE | 2021-01-10 08:31 | NUR.TO.PHY ---
SVT on monitor. Had Patient cough and bear down. Returned to sinus tach. Patient not symptomatic.
[2021-01-10 08:35] LABS: AST(SGOT) 24 U/L (15-37); Alanine Aminotransfer ALT/SGPT 23 U/L (13-56); Albumin, Serum 2.3 g/dL (3.2-5.0); Alkaline Phosphatase 78 U/L (45-117); Bilirubin, Direct 0.12 mg/dL (0.00-0.30); Globulin 4.5 g/dL (2.2-4.2); Protein, Total 6.8 g/dL (6.4-8.2)
[2021-01-10] MEDS: Meloxicam 7.5 MG Tablet PO (09:27)
[2021-01-10] MEDS: Lisinopril 20 MG Tablet PO (09:27)
[2021-01-10] MEDS: Enoxaparin 40 MG/0.4 ML Syringe SC ×2 (09:27→21:14)
[2021-01-10] MEDS: hydroCHLOROthiazide 25 MG Tablet PO (09:28)
[2021-01-10] MEDS: Gabapentin 600 MG Tablet PO ×3 (09:28→17:39)
[2021-01-10] MEDS: Metoprolol Tartrate 50 MG Tablet PO ×2 (09:28→21:13)
[2021-01-10] MEDS: DULoxetine Hcl 30 MG Capsule 90 MG PO (09:28)
[2021-01-10] MEDS: Loratadine 10 MG Tablet PO (09:28)
[2021-01-10] MEDS: dexAMETHasone 4 MG/ML Vial 6 MG IV (09:30)
[2021-01-10] MEDS: 0.9% Saline Lock 10 ML Syringe IV (09:30)
[2021-01-10] MEDS: Insulin Lispro 100 UNIT/ML INSULN.PEN SC ×4 (09:33→21:13)
[2021-01-10 09:55] LABS: Bedside Glucose 308 mg/dL (70-110)
[2021-01-10] MEDS: Insulin Lispro 100 UNIT/ML INSULN.PEN 20 UNIT SC ×2 (12:16→17:37)
[2021-01-10] MEDS: Acetaminophen 325 MG Tablet 650 MG PO (12:18)
[2021-01-10 12:30] LABS: Bedside Glucose 344 mg/dL (70-110)
[2021-01-10 13:15] LABS: Pathologist Review Reviewed
--- NOTE | 2021-01-10 13:47 | PCM.PN.HOSP ---
Subjective Subjective Patient had another episode of SVT this morning which required her oxygen to be increased from 7 to 8 L heated high flow nasal cannula. This has since resolved and patient is comfortable in a chair. Objective Data Objective Data Vital Signs: Vital Signs Temp Pulse Resp BP Pulse Ox 98 F 82 19 H 116/58 L 93 01/10/21 12:23 01/10/21 13:45 01/10/21 13:45 01/10/21 12:23 01/10/21 13:45 Oxygen Flow Rate (L/min) 8 Oxygen Delivery Method Nasal Cannula Weight: 170.4 kg Body Mass Index (BMI) 62.5 Intake & Output: Intake and Output for Last 24 Hours 01/08/21 01/09/21 01/10/21 23:59 23:59 23:59 Intake Total 1450 / 1450 970 / 1220 925 / 925 Output Total 300 / 300 Balance 1450 / 1450 670 / 920 925 / 925 Lab / Micro Data Result Diagrams: 01/10/21 05:50 01/10/21 05:50 Labs: Laboratory Results - last 24 hr 01/09/21 17:09: POC Glucose 447 H 01/09/21 21:26: POC Glucose 397 H 01/10/21 05:50: WBC 10.8, RBC 4.13 L, Hgb 11.9 L, Hct 36.2 L, MCV 87.7, MCH 28.8, MCHC 32.9, RDW Std Deviation 47.0 H, RDW Coeff of Milo 14.6, Plt Count 357, MPV 10.0, Neut % (Auto) Not Reportable, Absolute Neuts (auto) 8.6 H, Absolute Lymphs (auto) 0.97, Total Counted 100, Neutrophils % (Manual) 80 H, Lymphocytes % (Manual) 9 L, Monocytes % (Manual) 4, Eosinophils % (Manual) 1, Metamyelocytes % 1, Myelocytes % 4 H, Promyelocytes % 1 H, Diff Path Review Reviewed, Atypical Lymphocytes 2+, Platelet Estimate ADEQUATE, RBC Morphology NORM C+C 01/10/21 05:50: Sodium 139, Potassium 3.7, Chloride 105, Carbon Dioxide 26.0, Anion Gap 8, BUN 25 H, Creatinine 0.81, Estim Creat Clear Calc 73.46, Est GFR (MDRD) Af Amer 95, Est GFR (MDRD) Non-Af 78, BUN/Creatinine Ratio 30.9 H, Glucose 259 H, Calcium 9.3 01/10/21 06:30: Total Bilirubin 0.30, Direct Bilirubin 0.12, AST 24, ALT 23, Alkaline Phosphatase 78, Total Protein 6.8, Albumin 2.3 L, Globulin 4.5 H 01/10/21 09:25: POC Glucose 308 H 01/10/21 12:15: POC Glucose 344 H Micro: Microbiology 01/08/21 11:03 Sputum, Expectorated/Coughed Gram Stain - Final 01/08/21 11:03 Sputum, Expectorated/Coughed Respiratory Culture - Preliminary Enterobacter aerogenes 01/04/21 01:30 Nasal Secretion SARS-CoV-2 Antigen (Rapid) - Final SARS-CoV-2 (COVID 19) Physical Exam Const alert, oriented x3 and no apparent distress Constitutional Narrative: Morbidly obese middle-aged white female sitting up in a chair reclined at the bedside, appears comfortable and nontoxic General Appearance: cooperative Exam Limitations: no limitations Nutritional Appearance: morbidly obese HEENT normocephalic, head/scalp atraumatic and moist oral mucous membranes HEENT Narrative: No thrush Head and Scalp: normocephalic Lymph Lymphatic: no lymphadenopathy noted Resp normal respiratory effort, normal air movement, no retractions, no use of accessory muscles and clear to auscultation bilaterally Resp Narrative: Diffusely diminished, breath sounds are distant secondary body habitus Auscultation: Negative for crackles, rales, rhonchi or wheezes Cardio regular rate, regular rhythm, S1 normal heart sound, S2 normal heart sound, no murmurs, no rub, no gallops, no clicks and no JVD Cardio Narrative: Distant secondary to body habitus GI normal to inspection, nondistended, normoactive bowel sounds, soft to palpation, non-tender and non-distended GI Narrative: obese Extremity normal capillary refill and no clubbing, cyanosis or edema Peripheral Pulses: Yes pulses 2+ throughout Skin General Skin Exam: turgor normal Neuro oriented x3, moves all extremities and no focal motor deficits Sensorium / Orientation: awake and alert Speech: speech normal Assessment & Plan Assessment/Plan (1) Acute respiratory failure with hypoxia: (2) Pneumonia due to 2019 novel coronavirus: (3) Type 2 diabetes mellitus: QUALIFIERS: Diabetes mellitus supervisor intermediates insulin use: without [facility] use Diabetes mellitus complication status: with other specified complication Qualified Code(s): E11.69 - Type 2 diabetes mellitus with other specified complication PLAN: Acute hypoxic respiratory failure secondary to COVID-19 pneumonia -Patient is unvaccinated -Symptom onset 12/29 and therefore will need isolation until 01/18/2021 -Decadron day -Patient has completed remdesivir -Continue baricitinib day -Patient currently on 8 L heated high flow nasal cannula with an SPO2 of 90-94% -Wean as able -Continue prone as able, I-S, Acapella -Out of bed -Appreciate pulmonary/ID input Enterobacter aerogenes pneumonia -Patient was on Zosyn but DEBRA was 16 and will therefore convert to Levaquin for 7 days -Day 1 DM-2 with steroid-induced hyperglycemia -Patient is not insulin-dependent at baseline -Hold home oral agents -Blood sugars remain elevated--> bacterial pneumonia may be playing into this as well -Increase Lantus from 40 units twice daily to 50 units twice daily -Increase scheduled log 20 units 3 times daily -Continue SSI -Accu-Cheks before meals and at bedtime -Blood sugar is 140-180 SVT -Patient has history of SVT and is on metoprolol for this -Heart rate improved but still having intermittent SVT -Continue home metoprolol -Continue telemetry monitoring Hypertension -Continue home lisinopril, metoprolol, and hydrochlorothiazide Diabetic neuropathy -Continue home gabapentin Depression/anxiety -Continue home citalopram -Continue home Xanax -Continue home Cymbalta History of asthma -Hold home inhalers -Continue duo nebs and albuterol Morbid obesity -Complicates overall treatment, prognosis, outcomes -Recommend weight loss TAMMI -Continue nocturnal BiPAP DVT prophylaxis -SCDs -Lovenox 40 mg twice daily CODE STATUS -Full code Charges/Coding Visit Charges Inpatient E&M: 20791 Subs Hosp L2
--- NOTE | 2021-01-10 14:35 | PCM.PN.ID ---
Physical Exam Narrative Feeling better, no fever Const alert General Appearance: cooperative Resp Auscultation: diminished lung sounds Cardio regular rate and regular rhythm GI normal to inspection, nondistended, normoactive bowel sounds Skin no rashes or lesions noted ID ID: Route of nutrition/ use of supplements: [] Nutritional Intake: [] IV Site: [] Isidro Catheter: [] Assessment & Plan Assessment/Plan (1) Pneumonia due to 2019 novel coronavirus: PLAN: Sx started 12/29. Unvaccinated. Isolate for 20 days (stop date 01/17), recommend vaccine once out of hospital and out of iso. On dex, baricitinib, completed remdesivir. On levaquin po now, sputum with enterobacter. Will follow (2) Acute respiratory failure with hypoxia:
--- NOTE | 2021-01-10 14:58 | PN.CC_ITS ---
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 Continue Decadron (01/13/2021) and baricitinib (01/17/2021) 2. Continue BiPAP therapy, at a minimum, with naps and nightly. 3. Continue to wean supplemental oxygen as tolerated to maintain saturations at or above 90%. 4. Awake prone positioning was encouraged. 5. IV Lasix as needed to maintain euvolemic state. Possibly challenge tomorrow 6. Encourage incentive spirometer use and mobilize patient as tolerated. Possible walking oximetry tomorrow IMPRESSIONS: 1. Acute hypoxic respiratory failure secondary to Covid pneumonia with Enterobacter superinfection The patient presented to the hospital with COVID-19 pneumonia with sympto ms that initially started around December 29. Accordingly, the patient has been initiated on remdesivir and Decadron. Given further respiratory decompensation, she was also placed on baricitinib. Her respiratory status is slowly improving. The patient will be continued on Pap therapy on a nightly basis. Continue supplemental oxygen throughout the day and wean to maintain saturations at or above 90%. Continue twice daily Lovenox. Patient likely to have a walking oximetry in the next 24 to 48 hours. Complete 7 days of antibiotics for Enterobacter 2. Diabetes mellitus type 2 Continue Lantus and sliding scale insulin coverage. Titrate Lantus as necessary for hyperglycemia 3. Fibromyalgia/morbid obesity/tobacco abuse/allergic rhinitis/partially vaccinated status Complicates care, management, recovery and prognosis. Continue baseline anxiolytic therapy. Physical therapy to work with the patient. This note was generated with [employer] dictation software. It may contain incorrect words, spelling, and punctuation that were not noted in checking the note before signing. Subjective Subjective Patient did well overnight. No acute issues were reported. Patient overall feels anxious and feels that she is ready to go home. Patient does report she gets dyspnea on exertion, but states that she has chairs at strategic intervals at home to help with getting around. Objective Data Objective Data Vital Signs: Vital Signs Temp Pulse Resp BP Pulse Ox 36.6 C 80 20 H 116/58 L 93 01/10/21 12:23 01/10/21 13:45 01/10/21 13:45 01/10/21 12:23 01/10/21 13:45 Oxygen Flow Rate (L/min) 8 Oxygen Delivery Method Nasal Cannula Weight: 170.4 kg Body Mass Index (BMI) 62.5 Intake & Output: Intake and Output for Last 24 Hours 01/08/21 01/09/21 01/10/21 23:59 23:59 23:59 Intake Total 1450 / 1450 970 / 1220 925 / 925 Output Total 300 / 300 Balance 1450 / 1450 670 / 920 925 / 925 Lab / Micro Data Result Diagrams: 01/10/21 05:50 01/10/21 05:50 Labs: Laboratory Results - last 24 hr 01/09/21 17:09: POC Glucose 447 H 01/09/21 21:26: POC Glucose 397 H 01/10/21 05:50: WBC 10.8, RBC 4.13 L, Hgb 11.9 L, Hct 36.2 L, MCV 87.7, MCH 28.8, MCHC 32.9, RDW Std Deviation 47.0 H, RDW Coeff of Milo 14.6, Plt Count 357, MPV 10.0, Neut % (Auto) Not Reportable, Absolute Neuts (auto) 8.6 H, Absolute Lymphs (auto) 0.97, Total Counted 100, Neutrophils % (Manual) 80 H, Lymphocytes % (Manual) 9 L, Monocytes % (Manual) 4, Eosinophils % (Manual) 1, Metamyelocytes % 1, Myelocytes % 4 H, Promyelocytes % 1 H, Diff Path Review Reviewed, Atypical Lymphocytes 2+, Platelet Estimate ADEQUATE, RBC Morphology NORM C+C 01/10/21 05:50: Sodium 139, Potassium 3.7, Chloride 105, Carbon Dioxide 26.0, Anion Gap 8, BUN 25 H, Creatinine 0.81, Estim Creat Clear Calc 73.46, Est GFR (MDRD) Af Amer 95, Est GFR (MDRD) Non-Af 78, BUN/Creatinine Ratio 30.9 H, Glucose 259 H, Calcium 9.3 01/10/21 06:30: Total Bilirubin 0.30, Direct Bilirubin 0.12, AST 24, ALT 23, Alkaline Phosphatase 78, Total Protein 6.8, Albumin 2.3 L, Globulin 4.5 H 01/10/21 09:25: POC Glucose 308 H 01/10/21 12:15: POC Glucose 344 H Micro: Microbiology 01/08/21 11:03 Sputum, Expectorated/Coughed Gram Stain - Final 01/08/21 11:03 Sputum, Expectorated/Coughed Respiratory Culture - Preliminary Enterobacter aerogenes 01/04/21 01:30 Nasal Secretion SARS-CoV-2 Antigen (Rapid) - Final SARS-CoV-2 (COVID 19) Physical Exam Const alert Constitutional Narrative: Currently sitting in bedside recliner. No conversat ional dyspnea General Appearance: cooperative Nutritional Appearance: morbidly obese HEENT normocephalic and head/scalp atraumatic Eyes PERRL, EOMs intact bilaterally and conjunctivae normal Neck supple General: trachea midline Chest inspection of chest normal Chest: symmetrical chest wall rise; Negative for crepitus Resp Auscultation: wheezes expiratory wheezes (Right greater than left) and diminished lung sounds; Negative for rales or rhonchi Cardio regular rate and regular rhythm GI normal to inspection, nondistended, normoactive bowel sounds GI Narrative: Large pannus noted Extremity General Extremity: edema bilateral lower extremity; Negative for clubbing or cyanosis Skin no rashes or lesions noted Neuro CN's II-XII intact bilaterally, moves all extremities and no focal motor deficits Psych Mood & Affect: anxious Charges/Coding Visit Charges Inpatient E&M: 27276 Subs Hosp L2
[2021-01-10 18:00] LABS: Bedside Glucose 409 mg/dL (70-110)
[2021-01-10 21:26] LABS: Bedside Glucose 380 mg/dL (70-110)
[2021-01-11] VITALS (19 sets, daily range): BP systolic 81–152; BP diastolic 45–92; PULSE 80–92; RESP 16–22; TEMP 36.3–36.8; O2SAT 87–97
[2021-01-11] MEDS: clonazePAM 0.5 MG Tablet PO ×2 (00:12→09:08)
--- NOTE | 2021-01-11 02:51 | CPS ---
Pt is on own bipap from home with 5L oxygen bled in line
[2021-01-11] MEDS: levoFLOXacin 750 MG Tablet PO (05:40)
[2021-01-11] MEDS: Ipratropium/Albuterol Sulfate 3 ML AMPUL.NEB INHALATION ×3 (06:58→20:35)
[2021-01-11 07:12] LABS: Hematocrit 35.3 % (37-47); Hemoglobin 11.9 g/dL (12.0-15.0); Mean Corp Hgb Conc 33.7 g/dL (32-36); Mean Corpuscular Hgb 29.2 pg (27.0-32.0); Mean Corpuscular Volume 86.5 fL (81-99); POSITIVE COUNT YES; POSITIVE MORPHOLOGY YES; Platelet Count 375 K/mm3 (150-450); RBC Distribution Width CV 14.6 % (11.6-14.6); RBC Distribution Width SD 46.5 fl (35.1-43.9); Red Blood Count 4.08 M/mm3 (4.2-5.4); White Blood Count 10.3 K/mm3 (4.4-11.0)
[2021-01-11 07:16] LABS: Differential Indicated MANUAL DIFF
[2021-01-11 07:40] LABS: ALB/GLOB Ratio 0.5 RATIO (0.9-2.4); AST(SGOT) 12 U/L (15-37); Alanine Aminotransfer ALT/SGPT 19 U/L (13-56); Albumin, Serum 2.1 g/dL (3.2-5.0); Alkaline Phosphatase 78 U/L (45-117); Anion Gap 9 (5-15); BUN 23 mg/dL (7-18); BUN/Creat Ratio 31.4 RATIO (10-20); Calcium,Total 8.8 mg/dL (8.5-10.1); Chloride 104 mmol/L (98-107); Creatinine, Serum 0.73 mg/dL (0.55-1.02); EST Glomerular Filtration Rate 88 mL/min (>60); Est Glom Filt Rate - Afr Amer 106 mL/min (>60); Estimated Creatinine Clearance 81.51 ml/min; Globulin 4.5 g/dL (2.2-4.2); Glucose 219 mg/dL (74-106); Potassium 3.7 mmol/L (3.5-5.1); Protein, Total 6.6 g/dL (6.4-8.2); Sodium Level 135 mmol/L (136-145)
[2021-01-11 08:50] LABS: Eosinophil 2 % (0-5); Lymphocyte 11 % (19-41); Metamyelocyte 2 % (0-1); Monocyte 7 % (0-10); Neutrophil-Segmented 78 % (47-70); Total Cells Counted 100 (MANUAL DIFF)
[2021-01-11 08:51] LABS: Platelet Estimate ADEQUATE (ADEQ); Red Cell Morphology NORM C+C NORMAL (NORM C&C)
[2021-01-11] MEDS: Insulin Lispro 100 UNIT/ML INSULN.PEN 20 UNIT SC ×3 (09:02→16:39)
[2021-01-11] MEDS: Enoxaparin 40 MG/0.4 ML Syringe SC ×2 (09:02→21:07)
[2021-01-11] MEDS: Insulin Lispro 100 UNIT/ML INSULN.PEN SC ×4 (09:02→21:08)
[2021-01-11] MEDS: dexAMETHasone 4 MG/ML Vial 6 MG IV (09:04)
[2021-01-11] MEDS: 0.9% Saline Lock 10 ML Syringe IV (09:05)
[2021-01-11] MEDS: Lisinopril 20 MG Tablet PO (09:08)
[2021-01-11] MEDS: hydroCHLOROthiazide 25 MG Tablet PO (09:08)
[2021-01-11] MEDS: DULoxetine Hcl 30 MG Capsule 90 MG PO (09:08)
[2021-01-11] MEDS: Gabapentin 600 MG Tablet PO ×3 (09:08→16:38)
[2021-01-11] MEDS: Loratadine 10 MG Tablet PO (09:08)
[2021-01-11] MEDS: Meloxicam 7.5 MG Tablet PO (09:08)
[2021-01-11] MEDS: Metoprolol Tartrate 50 MG Tablet PO (09:08)
[2021-01-11 09:16] LABS: Bedside Glucose 239 mg/dL (70-110)
--- NOTE | 2021-01-11 10:02 | PCM.PN.INT ---
Assessment & Plan Assessment/Plan (1) Acute respiratory failure with hypoxia: (2) Pneumonia due to 2019 novel coronavirus: (3) TAMMI (obstructive sleep apnea): (4) Morbid obesity: (5) Type 2 diabetes mellitus: QUALIFIERS: Diabetes mellitus buttermaker continuous churn insulin use: without buttermaker continuous churn use Diabetes mellitus complication status: with other specified complication Qualified Code(s): E11.69 - Type 2 diabetes mellitus with other specified complication PLAN: RECOMMENDATIONS: 1. Continue Decadron (01/13/2021) and baricitinib (01/17/2021) 2. Continue BiPAP therapy, at a minimum, with naps and nightly. 3. Continue to wean supplemental oxygen as tolerated to maintain saturations at or above 90%. 4. Awake prone positioning was encouraged. 5. IV Lasix as needed to maintain euvolemic state. Challenge today 6. Encourage incentive spirometer use and mobilize patient as tolerated. Obtain walking oximetry today IMPRESSIONS: 1. Acute hypoxic respiratory failure secondary to Covid pneumonia with Enterobacter superinfection The patient presented to the hospital with COVID-19 pneumonia with symptoms that initially started around December 29. Accordingly, the patient has been initiated on remdesivir and Decadron. Given further respiratory decompensation, she was also placed on baricitinib. Her respiratory status is slowly improving. The patient will be continued on Pap therapy on a nightly basis. Continue supplemental oxygen throughout the day and wean to maintain saturations at or above 90%. Continue twice daily Lovenox. Patient will have a walking oximetry today. We will challenge with Lasix therapy. Complete 7 days of antibiotics for Enterobacter 2. Diabetes mellitus type 2 Continue Lantus and sliding scale insulin coverage. Titrate Lantus as necessary for hyperglycemia 3. Fibromyalgia/morbid obesity/tobacco abuse/allergic rhinitis/partially vaccinated status Complicates care, management, recovery and prognosis. Continue baseline anxiolytic therapy. Physical therapy to work with the patient. This note was generated with [employer] dictation software. It may contain incorrect words, spelling, and punctuation that were not noted in checking the note before signing. Subjective Subjective Patient did okay overnight. No acute issues were reported. Patient subjectively felt better on my evaluation. Patient did have home BiPAP and felt that this fit better. Objective Data Objective Data Vital Signs: Vital Signs Temp Pulse Resp BP Pulse Ox 36.6 C 87 20 H 152/92 H 92 01/11/21 09:00 01/11/21 09:08 01/11/21 09:00 01/11/21 09:00 01/11/21 09:00 Oxygen Flow Rate (L/min) [ 6 AMBULATING with Oxygen #1] Oxygen Flow Rate (L/min) [At 2 REST with Oxygen] Oxygen Flow Rate (L/min) 5 Oxygen Delivery Method Nasal Cannula Weight: 172.4 kg Body Mass Index (BMI) 62.5 Intake & Output: Intake and Output for Last 24 Hours 01/09/21 01/10/21 01/11/21 23:59 23:59 23:59 Intake Total 970 / 1220 1265 / 1265 Output Total 300 / 300 Balance 670 / 920 1265 / 1265 Lab / Micro Data Result Diagrams: 01/11/21 06:34 01/11/21 06:34 Labs: Laboratory Results - last 24 hr 01/10/21 05:50: Diff Path Review Reviewed 01/10/21 12:15: POC Glucose 344 H 01/10/21 17:36: POC Glucose 409 H 01/10/21 21:06: POC Glucose 380 H 01/11/21 06:34: WBC 10.3, RBC 4.08 L, Hgb 11.9 L, Hct 35.3 L, MCV 86.5, MCH 29.2, MCHC 33.7, RDW Std Deviation 46.5 H, RDW Coeff of Milo 14.6, Plt Count 375, MPV 10.0, Neut % (Auto) Not Reportable, Absolute Neuts (auto) 8.0 H, Absolute Lymphs (auto) 1.10, Total Counted 100, Neutrophils % (Manual) 78 H, Lymphocytes % (Manual) 11 L, Monocytes % (Manual) 7, Eosinophils % (Manual) 2, Metamyelocytes % 2 H, Diff Path Review May foll, Platelet Estimate ADEQUATE, RBC Morphology NORM C+C 01/11/21 06:34: Sodium 135 L, Potassium 3.7, Chloride 104, Carbon Dioxide 22.0, Anion Gap 9, BUN 23 H, Creatinine 0.73, Estim Creat Clear Calc 81.51, Est GFR (MDRD) Af Amer 106, Est GFR (MDRD) Non-Af 88, BUN/Creatinine Ratio 31.4 H, Glucose 219 H, Calcium 8.8, Total Bilirubin 0.30, AST 12 L, ALT 19, Alkaline Phosphatase 78, Total Protein 6.6, Albumin 2.1 L, Globulin 4.5 H, Albumin/Globulin Ratio 0.5 L 01/11/21 09:01: POC Glucose 239 H Micro: Microbiology 01/08/21 11:03 Sputum, Expectorated/Coughed Gram Stain - Final 01/08/21 11:03 Sputum, Expectorated/Coughed Respiratory Culture - Preliminary Enterobacter aerogenes 01/04/21 01:30 Nasal Secretion SARS-CoV-2 Antigen (Rapid) - Final SARS-CoV-2 (COVID 19) Physical Exam Const alert Constitutional Narrative: Currently sitting in bedside recliner. No conversational dyspnea General Appearance: cooperative Nutritional Appearance: morbidly obese HEENT normocephalic and head/scalp atraumatic Eyes PERRL, EOMs intact bilaterally and conjunctivae normal Neck supple General: trachea midline Chest inspection of chest normal Chest: symmetrical chest wall rise; Negative for crepitus Resp Auscultation: wheezes expiratory wheezes (Right greater than left) and diminished lung sounds; Negative for rales or rhonchi Cardio regular rate and regular rhythm GI normal to inspection, nondistended, normoactive bowel sounds GI Narrative: Large pannus noted Extremity General Extremity: edema bilateral lower extremity; Negative for clubbing or cyanosis Skin no rashes or lesions noted Neuro CN's II-XII intact bilaterally, moves all extremities and no focal motor deficits Psych Mood & Affect: anxious Charges/Coding Visit Charges Inpatient E&M: 86891 Subs Hosp L2
[2021-01-11] MEDS: Potassium Chloride Oral Tablet 20 MEQ 40 MEQ PO (11:50)
[2021-01-11 11:55] LABS: Bedside Glucose 330 mg/dL (70-110)
[2021-01-11 12:47] LABS: Pathologist Review Reviewed
--- NOTE | 2021-01-11 14:26 | PCM.PN.HOSP ---
Subjective Subjective Patient is very disgruntled today as she is frustrated because she really wants to go home. She states she is debating whether or not she should get out of bed today. We had a long discussion with regards of how far she is, and she is significantly improved given the fact she is down to 5 L nasal cannula at rest. I did discuss with her that I do anticipate that we will be able to discharge her by the end of the week. Her oxygen saturations were 87% with ambulation today on 6 L and I do anticipate these to improve significantly. She did voiced understanding and seemed to be in better spirits by the time I left the room. Objective Data Objective Data Vital Signs: Vital Signs Temp Pulse Resp BP Pulse Ox 97.6 F L 82 22 H 112/65 94 01/11/21 12:39 01/11/21 13:23 01/11/21 13:23 01/11/21 12:39 01/11/21 12:39 Oxygen Flow Rate (L/min) [ 6 AMBULATING with Oxygen #1] Oxygen Flow Rate (L/min) [At 2 REST with Oxygen] Oxygen Flow Rate (L/min) 5 Oxygen Delivery Method Nasal Cannula Weight: 172.4 kg Body Mass Index (BMI) 62.5 Intake & Output: Intake and Output for Last 24 Hours 01/09/21 01/10/21 01/11/21 23:59 23:59 23:59 Intake Total 970 / 1220 1265 / 1265 400 / 400 Output Total 300 / 300 Balance 670 / 920 1265 / 1265 400 / 400 Lab / Micro Data Result Diagrams: 01/11/21 06:34 01/11/21 06:34 Labs: Laboratory Results - last 24 hr 01/10/21 17:36: POC Glucose 409 H 01/10/21 21:06: POC Glucose 380 H 01/11/21 06:34: WBC 10.3, RBC 4.08 L, Hgb 11.9 L, Hct 35.3 L, MCV 86.5, MCH 29.2, MCHC 33.7, RDW Std Deviation 46.5 H, RDW Coeff of Milo 14.6, Plt Count 375, MPV 10.0, Neut % (Auto) Not Reportable, Absolute Neuts (auto) 8.0 H, Absolute Lymphs (auto) 1.10, Total Counted 100, Neutrophils % (Manual) 78 H, Lymphocytes % (Manual) 11 L, Monocytes % (Manual) 7, Eosinophils % (Manual) 2, Metamyelocytes % 2 H, Diff Path Review Reviewed, Platelet Estimate ADEQUATE, RBC Morphology NORM C+C 01/11/21 06:34: Sodium 135 L, Potassium 3.7, Chloride 104, Carbon Dioxide 22.0, Anion Gap 9, BUN 23 H, Creatinine 0.73, Estim Creat Clear Calc 81.51, Est GFR (MDRD) Af Amer 106, Est GFR (MDRD) Non-Af 88, BUN/Creatinine Ratio 31.4 H, Glucose 219 H, Calcium 8.8, Total Bilirubin 0.30, AST 12 L, ALT 19, Alkaline Phosphatase 78, Total Protein 6.6, Albumin 2.1 L, Globulin 4.5 H, Albumin/Globulin Ratio 0.5 L 01/11/21 09:01: POC Glucose 239 H 01/11/21 11:49: POC Glucose 330 H Micro: Microbiology 01/08/21 11:03 Sputum, Expectorated/Coughed Gram Stain - Final 01/08/21 11:03 Sputum, Expectorated/Coughed Respiratory Culture - Preliminary Enterobacter aerogenes 01/04/21 01:30 Nasal Secretion SARS-CoV-2 Antigen (Rapid) - Final SARS-CoV-2 (COVID 19) Physical Exam Narrative Const alert, oriented x3 and no apparent distress Constitutional Narrative: Morbidly obese middle-aged white female sitting up in a chair reclined at the bedside, appears comfortable and nontoxic General Appearance: cooperative Exam Limitations: no limitations Nutritional Appearance: morbidly obese HEENT normocephalic, head/scalp atraumatic and moist oral mucous membranes Eyes PERRL Neck supple Lymph Lymphatic: no lymphadenopathy noted Resp normal respiratory effort, normal air movement, no retractions, no use of accessory muscles and clear to auscultation bilaterally Resp Narrative: Diffusely diminished, breath sounds are distant secondary body habitus Auscultation: Negative for crackles, rales, rhonchi or wheezes Cardio regular rate, regular rhythm, S1 normal heart sound, S2 normal heart sound, no murmurs, no rub, no gallops, no clicks and no JVD Cardio Narrative: Distant secondary to body habitus GI normal to inspection, nondistended, normoactive bowel sounds, soft to palpation, non-tender and non-distended GI Narrative: obese Extremity normal capillary refill and no clubbing, cyanosis or edema Skin General Skin Exam: turgor normal Neuro oriented x3, moves all extremities and no focal motor deficits Sensorium / Orientation: awake and alert Speech: speech normal Psych affect normal Mood & Affect: anxious Assessment & Plan Assessment/Plan (1) Acute respiratory failure with hypoxia: (2) Pneumonia due to 2019 novel coronavirus: (3) Type 2 diabetes mellitus: QUALIFIERS: Diabetes mellitus senior care insulin use: without termite control representative use Diabetes mellitus complication status: with other specified complication Qualified Code(s): E11.69 - Type 2 diabetes mellitus with other specified complication PLAN: Acute hypoxic respiratory failure secondary to COVID-19 pneumonia -Patient is unvaccinated -Symptom onset 12/29 and therefore will need isolation until 01/18/2021 -Decadron day -Patient has completed remdesivir -Continue baricitinib day -Patient currently on 5 L heated high flow nasal cannula with an SPO2 of 90-94% -Wean as able -Continue prone as able, I-S, Acapella -Out of bed -Appreciate pulmonary/ID input -Anticipate discharge in the next 24 to 48 hours Enterobacter aerogenes pneumonia -Continue Levaquin -Day DM-2 with steroid-induced hyperglycemia -Patient is not insulin-dependent at baseline -Hold home oral agents -Blood sugars are overall better -Continue Lantus 50 units twice daily -Continue scheduled log 20 units 3 times daily -Continue SSI -Accu-Cheks before meals and at bedtime -Blood sugar is 140-180 SVT -Patient has history of SVT and is on metoprolol for this -No SVT in the last 24 hours -Continue home metoprolol -Continue telemetry monitoring Hypertension -Continue home lisinopril, metoprolol, and hydrochlorothiazide Diabetic neuropathy -Continue home gabapentin Depression/anxiety -Continue home citalopram -Continue home Xanax -Continue home Cymbalta History of asthma -Hold home inhalers -Continue duo nebs and albuterol Morbid obesity -Complicates overall treatment, prognosis, outcomes -Recommend weight loss TAMMI -Continue nocturnal BiPAP DVT prophylaxis -SCDs -Lovenox 40 mg twice daily CODE STATUS -Full code Charges/Coding Visit Charges Inpatient E&M: 49409 Subs Hosp L2
--- NOTE | 2021-01-11 14:31 | CASEMGMT ---
Addendum entered by Hue Oliveros 01/11/21 14:39: Per Sylvie, they can accept pt and possibly do SOC on 01/14/21. Tammy SMITH CM Original Note: Call to Sylvie at [facility] to check on whether they will accept pt at discharge. Sylvie to call this RN KARON back. Tammy SMITH CM
--- NOTE | 2021-01-11 15:04 | NURSING ---
Gave report to Mildred SMITH
[2021-01-11 16:56] LABS: Bedside Glucose 389 mg/dL (70-110)
[2021-01-11 21:20] LABS: Bedside Glucose 357 mg/dL (70-110)
[2021-01-12] VITALS (13 sets, daily range): BP systolic 101–132; BP diastolic 51–89; PULSE 79–106; RESP 18–20; TEMP 36.2–36.4; O2SAT 84–96
[2021-01-12] MEDS: levoFLOXacin 750 MG Tablet PO (06:01)
[2021-01-12 06:58] LABS: Hemoglobin 11.7 g/dL (12.0-15.0); Mean Corp Hgb Conc 32.5 g/dL (32-36); Mean Corpuscular Hgb 28.9 pg (27.0-32.0); Mean Corpuscular Volume 88.9 fL (81-99); POSITIVE COUNT YES; POSITIVE MORPHOLOGY YES; Platelet Count 463 K/mm3 (150-450); RBC Distribution Width CV 14.6 % (11.6-14.6); RBC Distribution Width SD 47.5 fl (35.1-43.9); Red Blood Count 4.05 M/mm3 (4.2-5.4); White Blood Count 9.6 K/mm3 (4.4-11.0)
[2021-01-12 07:07] LABS: Differential Indicated MANUAL DIFF
[2021-01-12] MEDS: Ipratropium/Albuterol Sulfate 3 ML AMPUL.NEB INHALATION ×2 (07:12→13:29)
[2021-01-12 07:40] LABS: ALB/GLOB Ratio 0.5 RATIO (0.9-2.4); AST(SGOT) 11 U/L (15-37); Alanine Aminotransfer ALT/SGPT 21 U/L (13-56); Albumin, Serum 2.2 g/dL (3.2-5.0); Alkaline Phosphatase 85 U/L (45-117); Anion Gap 9 (5-15); BUN 29 mg/dL (7-18); BUN/Creat Ratio 35.1 RATIO (10-20); Calcium,Total 9.2 mg/dL (8.5-10.1); Chloride 104 mmol/L (98-107); Creatinine, Serum 0.83 mg/dL (0.55-1.02); EST Glomerular Filtration Rate 76 mL/min (>60); Est Glom Filt Rate - Afr Amer 92 mL/min (>60); Estimated Creatinine Clearance 71.69 ml/min; Globulin 4.5 g/dL (2.2-4.2); Glucose 253 mg/dL (74-106); Potassium 3.8 mmol/L (3.5-5.1); Protein, Total 6.7 g/dL (6.4-8.2); Sodium Level 137 mmol/L (136-145)
[2021-01-12 09:01] LABS: Eosinophil 2 % (0-5); Lymphocyte 10 % (19-41); Monocyte 11 % (0-10); Myelocyte 1 % (0-0); Neutrophil-Band 2 % (0-5); Neutrophil-Segmented 74 % (47-70); Platelet Estimate ADEQUATE (ADEQ); Red Cell Morphology NORM C+C NORMAL (NORM C&C); Total Cells Counted 100 (MANUAL DIFF)
[2021-01-12 09:02] LABS: Absolute Lymphocyte Count 0.96 X10^3/uL (0.83-4.51); Absolute Neutrophil Count 7.3 X10^3/uL (2.0-7.7)
[2021-01-12 09:25] LABS: Bedside Glucose 211 mg/dL (70-110)
--- NOTE | 2021-01-12 09:38 | PCM.PN.INT ---
Assessment & Plan Assessment/Plan (1) Acute respiratory failure with hypoxia: (2) Pneumonia due to 2019 novel coronavirus: (3) TAMMI (obstructive sleep apnea): (4) Morbid obesity: (5) Type 2 diabetes mellitus: QUALIFIERS: Diabetes mellitus exterminator termite insulin use: without exterminator termite use Diabetes mellitus complication status: with other specified complication Qualified Code(s): E11.69 - Type 2 diabetes mellitus with other specified complication PLAN: RECOMMENDATIONS: 1. Continue Decadron (01/13/2021) and baricitinib (01/17/2021) 2. Continue BiPAP therapy, at a minimum, with naps and nightly. 3. Continue to wean supplemental oxygen as tolerated to maintain saturations at or above 90%. 4. Awake prone positioning was encouraged. 5. IV Lasix as needed to maintain euvolemic state. Challenge today. Okay to dose twice daily with potassium replacement 6. Encourage incentive spirometer use and mobilize patient as tolerated. Obtain walking oximetry today IMPRESSIONS: 1. Acute hypoxic respiratory failure secondary to Covid pneumonia with Enterobacter superinfection The patient presented to the hospital with COVID-19 pneumonia with symptoms that initially started around December 29. Accordingly, the patient has been initiated on remdesivir and Decadron. Given further respiratory decompensation, she was also placed on baricitinib. Her respiratory status is slowly improving. The patient will be continued on Pap therapy on a nightly basis. Continue supplemental oxygen throughout the day and wean to maintain saturations at or above 90%. Continue twice daily Lovenox. Patient okay to have a second challenge following diuretics. We will challenge with Lasix therapy. May schedule twice daily Lasix tomorrow if renal function stable. Complete 7 days of antibiotics for Enterobacter 2. Diabetes mellitus type 2 Continue Lantus and sliding scale insulin coverage. Titrate Lantus as necessary for hyperglycemia. May need to decrease Lantus tomorrow following discontinuation of Decadron. 3. Fibromyalgia/morbid obesity/tobacco abuse/allergic rhinitis/partially vaccinated status Complicates care, management, recovery and prognosis. Continue baseline anxiolytic therapy. Physical therapy to work with the patient. This note was generated with [employer] software. It may contain incorrect words, spelling, and punctuation that were not noted in checking the note before signing. Subjective Subjective Patient did okay overnight. No acute events were reported. Patient states that she is frustrated that she failed my walk today. Patient is not reporting any change from a respiratory standpoint. Patient was noted to have a heart rate of 149 with ambulation. Objective Data Objective Data Vital Signs: Vital Signs Temp Pulse Resp BP Pulse Ox 36.3 C L 86 18 106/51 L 95 01/12/21 03:20 01/12/21 07:15 01/12/21 03:20 01/12/21 03:20 01/12/21 03:20 Oxygen Flow Rate (L/min) [ 6 AMBULATING with Oxygen #1] Oxygen Flow Rate (L/min) [At 2 REST with Oxygen] Oxygen Flow Rate (L/min) 5 Oxygen Delivery Method CPAP Weight: 171 kg Body Mass Index (BMI) 62.5 Intake & Output: Intake and Output for Last 24 Hours 01/10/21 01/11/21 01/12/21 23:59 23:59 23:59 Intake Total 1265 / 1265 760 / 880 180 / 180 Balance 1265 / 1265 760 / 880 180 / 180 Lab / Micro Data Result Diagrams: 01/12/21 06:20 01/12/21 06:20 Labs: Laboratory Results - last 24 hr 01/11/21 06:34: Diff Path Review Reviewed 01/11/21 11:49: POC Glucose 330 H 01/11/21 16:38: POC Glucose 389 H 01/11/21 21:05: POC Glucose 357 H 01/12/21 06:20: WBC 9.6, RBC 4.05 L, Hgb 11.7 L, Hct 36.0 L, MCV 88.9, MCH 28.9, MCHC 32.5, RDW Std Deviation 47.5 H, RDW Coeff of Milo 14.6, Plt Count 463 H, MPV 10.0, Neut % (Auto) Not Reportable, Absolute Neuts (auto) 7.3, Absolute Lymphs (auto) 0.96, Total Counted 100, Neutrophils % (Manual) 74 H, Band Neutrophils % 2, Lymphocytes % (Manual) 10 L, Monocytes % (Manual) 11 H, Eosinophils % (Manual) 2, Myelocytes % 1 H, Diff Path Review May , Platelet Estimate ADEQUATE, RBC Morphology NORM C+C 01/12/21 06:20: Sodium 137, Potassium 3.8, Chloride 104, Carbon Dioxide 24.0, Anion Gap 9, BUN 29 H, Creatinine 0.83, Estim Creat Clear Calc 71.69, Est GFR (MDRD) Af Amer 92, Est GFR (MDRD) Non-Af 76, BUN/Creatinine Ratio 35.1 H, Glucose 253 H, Calcium 9.2, Total Bilirubin 0.30, AST 11 L, ALT 21, Alkaline Phosphatase 85, Total Protein 6.7, Albumin 2.2 L, Globulin 4.5 H, Albumin/Globulin Ratio 0.5 L 01/12/21 09:19: POC Glucose 211 H Micro: Microbiology 01/08/21 11:03 Sputum, Expectorated/Coughed Gram Stain - Final 01/08/21 11:03 Sputum, Expectorated/Coughed Respiratory Culture - Final Enterobacter aerogenes 01/04/21 01:30 Nasal Secretion SARS-CoV-2 Antigen (Rapid) - Final SARS-CoV-2 (COVID 19) Physical Exam Const alert Constitutional Narrative: Currently sitting in bedside recliner. No conversational dyspnea General Appearance: cooperative Nutritional Appearance: morbidly obese HEENT normocephalic and head/scalp atraumatic Eyes PERRL, EOMs intact bilaterally and conjunctivae normal Neck supple General: trachea midline Chest inspection of chest normal Chest: symmetrical chest wall rise; Negative for crepitus Resp Auscultation: wheezes expiratory wheezes (Right greater than left) and diminished lung sounds; Negative for rales or rhonchi Cardio regular rate and regular rhythm GI normal to inspection, nondistended, normoactive bowel sounds GI Narrative: Large pannus noted Extremity General Extremity: edema bilateral lower extremity; Negative for clubbing or cyanosis Skin no rashes or lesions noted Neuro CN's II-XII intact bilaterally, moves all extremities and no focal motor deficits Psych Mood & Affect: anxious Charges/Coding Visit Charges Inpatient E&M: 26717 Subs Hosp L2
[2021-01-12] MEDS: Enoxaparin 40 MG/0.4 ML Syringe SC (09:52)
[2021-01-12] MEDS: Gabapentin 600 MG Tablet PO ×2 (09:53→12:44)
[2021-01-12] MEDS: Meloxicam 7.5 MG Tablet PO (09:53)
[2021-01-12] MEDS: Loratadine 10 MG Tablet PO (09:53)
[2021-01-12] MEDS: Metoprolol Tartrate 50 MG Tablet PO (09:53)
[2021-01-12] MEDS: Lisinopril 20 MG Tablet PO (09:54)
[2021-01-12] MEDS: Furosemide 40 MG/4 ML Vial IV (09:54)
[2021-01-12] MEDS: Insulin Lispro 100 UNIT/ML INSULN.PEN 20 UNIT SC ×2 (09:54→12:43)
[2021-01-12] MEDS: DULoxetine Hcl 30 MG Capsule 90 MG PO (09:54)
[2021-01-12] MEDS: hydroCHLOROthiazide 25 MG Tablet PO (09:54)
[2021-01-12] MEDS: Insulin Lispro 100 UNIT/ML INSULN.PEN SC ×2 (09:55→12:43)
[2021-01-12] MEDS: dexAMETHasone 4 MG/ML Vial 6 MG IV (09:56)
[2021-01-12 13:00] LABS: Bedside Glucose 339 mg/dL (70-110)
[2021-01-12 13:38] LABS: Pathologist Review Reviewed
--- NOTE | 2021-01-12 14:50 | CASEMGMT ---
Addendum entered by Hue Oliveros 01/12/21 15:01: Cristianco notified of referral, voices understanding. Tammy SMITH CM Original Note: Pt qualifies for home oxygen 4L w/ exertion and script faxed to [facility] [place] along with script for heavy duty WW for pt. Pt also to be sent home with [facility] at discharge. Pt states has a pulse ox at home and is aware to keep oxygen sat greater than 89%, voices understanding. All info placed on pt's d/c instruction plan. Pt voices no further questions/concerns/needs. Danae at [facility] aware of pt discharge, voices understanding. Tammy SMITH CM
--- NOTE | 2021-01-12 15:17 | PCM.DC.SUM ---
Providers Date of Admission: 01/04/21 Primary Care Physician: Vincent Yepez Consultations 01/04/21 06:26 Consult: Infectious Disease Routine Consulting Provider: Jared Malik Reason for Consult: Covid-19 EMERGENT Consult: No Notified: Yes Date Notified: 01/04/21 Time Notified: 04:40 Method of Notification: previously notified 01/04/21 07:37 Consult: Cloth Presser / Pulmonary Medicine Routine Consulting Provider: Pulmonary Medicine [facility] [place] Reason for Consult: Resp failure, COVID PNA, worsening quickly. EMERGENT Consult: No MD Notified: Yes Date Notified: 01/04/21 Time Notified: 07:37 Method of Notification: called ICU, left VM Reason For Visit: COVID 19 PNEUMONIA Diagnosis Discharge Diagnosis (1) Acute respiratory failure with hypoxia: Status: Acute Code(s): J96.01 - Acute respiratory failure with hypoxia (2) Pneumonia due to 2019 novel coronavirus: Status: Acute Code(s): U07.1 - COVID-19; J12.82 - Pneumonia due to coronavirus disease 2019 (3) TAMMI (obstructive sleep apnea): Status: Chronic Code(s): G47.33 - Obstructive sleep apnea (adult) (pediatric) (4) Morbid obesity: Status: Chronic Code(s): E66.01 - Morbid (severe) obesity due to excess calories (5) Type 2 diabetes mellitus: Status: Chronic Code(s): E11.9 - Type 2 diabetes mellitus without complications Qualifiers: Diabetes mellitus ocean transportation intermediary insulin use: without ocean transportation intermediary use Diabetes mellitus complication status: with other specified complication Qualified Code(s): E11.69 - Type 2 diabetes mellitus with other specified complication Medications at Discharge Home Medications budesonide-formoterol 2 puff INHALATION BID 06/30/14 hydrochlorothiazide 25 mg PO DAILY #30 tab 06/30/14 albuterol sulfate 1 - 2 puff INHALATION Q4H PRN PRN 11/16/19 metformin 1,000 mg PO BID 11/16/19 clonazepam 0.5 mg tablet 0.5 mg PO TID PRN 01/05/20 duloxetine 30 mg capsule,delayed release 90 mg PO DAILY cap 01/05/20 glimepiride 2 mg tablet 2 mg PO DAILY 01/05/20 meloxicam 15 mg tablet 7.5 mg PO DAILY 01/05/20 cetirizine 10 mg PO DAILY 04/17/20 lisinopril 20 mg PO DAILY 04/17/20 citalopram 20 mg tablet 20 mg PO DAILY 12/20/20 gabapentin 300 mg capsule 600 mg PO TID cap 12/20/20 metoprolol tartrate 50 mg tablet 50 mg PO BID 12/20/20 tramadol 50 mg tablet 50 mg PO Q8H PRN tab 12/20/20 aspirin 325 mg PO DAILY #30 tab 01/12/21 dexamethasone [Decadron] 6 mg PO DAILY #1 tab 01/12/21 levofloxacin 750 mg PO DAILY@0600 #4 tab 01/12/21 omeprazole 20 mg PO BID #60 tab 01/12/21 Hospital Course Operations None Procedures None Summary of Care Provided Minutes Spent on Discharge: 35 Hospital Course: Ms Allen is a 55-year-old white female who presented to the emergency department at [facility] on 01/04/2021 with a chief complaint of shortness of breath. Her symptoms started on Sunday of that week with a runny nose and a sore throat and progressed to shortness of breath with dyspnea on exertion and body aches. On admission she was found to be COVID-19 positive. Her pulse oximetry was 80% on room air and she required air Vo therapy in the emergency department on admission. She initially reported that she had a 1 dose of Pfizer vaccine last month but then told me later she had not been yet vaccinated. She initially was boarded in the ED as a PCU admission but was significantly tachypneic and had increased work of breathing and therefore was transitioned to an ICU admission. She was started on Decadron and remdesivir. A CTA of her chest was negative for PE and baricitinib was initiated on the day of admission. She transition from air Vo to requiring continuous BiPAP but was quickly able to be weaned to air Vo again. And was transferred to PCU from the ICU on 01/07/2021. A sputum culture was obtained and found to be positive for Enterobacter and was initially placed on Zosyn but the DEBRA was 16 and she was therefore transitioned to Levaquin. She had had 3 doses of this prior to discharge. She was discharged with 4 more doses to complete a 7-day course. She really started making headway with oxygen reduction after her antibiotics were initiated for her pneumonia. And by 01/11/2021 she was on less than 6 L at rest of supplemental oxygen but required 8 L with exertion. By 01/12/2021 she was able to be weaned further and was requiring no oxygen at rest and 4 L with ambulation. Given her significant reduction in oxygen requirements we were able to get her discharged home. She will get 1 more day of Decadron. We did advise her that her blood sugars will likely run high for another 24 to 48 hours given her Decadron use and she was managed here on insulin but upon discharge will be resumed on her oral agents. We did recommend close follow-up with her primary care physician after she is out of quarantine to be reevaluated for any further needs with regards to treatment of her diabetes. An A1c was not obtained at this time but was 7.2 on 11/16/2019. I would recommend an outpatient follow-up A1c be performed in 3 months. Given her overall sedentary lifestyle and risk of thromboembolic events with COVID-19 she was discharged home on aspirin 325 mg daily for the next 30 days along with omeprazole 20 mg twice daily for the next 30 days. Both medications are to be obtained [id number]. She was advised that she may discontinue these after that 30 days is up. She is to hold her meloxicam and avoid other nonsteroidal anti-inflammatory drugs while she is on full dose aspirin. No other significant medication changes were made at discharge. She was discharged home with supplemental oxygen as noted above. She was advised to follow-up with her PCP within the next 2 weeks after she is out of quarantine on 01/18/2021 and with pulmonology in the next month. Discharge diagnoses: Acute hypoxic respiratory failure COVID-19 pneumonia Enterobacter aerogenes pneumonia DM-2 Steroid-induced hyperglycemia History of SVT Hypertension Diabetic neuropathy Depression Anxiety History of asthma Morbid obesity TAMMI History of tobacco abuse Physical Exam Narrative Const alert, oriented x3 and no apparent distress Constitutional Narrative: Morbidly obese middle-aged white female sitting up in a chair reclined at the bedside, appears comfortable and nontoxic General Appearance: cooperative, comfortable, well kempt and well developed Orientation / Consciousness: awake Exam Limitations: no limitations Nutritional Appearance: morbidly obese HEENT normocephalic, head/scalp atraumatic, hearing grossly normal bilaterally and moist oral mucous membranes HEENT Narrative: No thrush, Mallampati 3-4 Eyes PERRL, EOMs intact bilaterally and conjunctivae normal Eyes Narrative: No scleral icterus Neck no lymphadenopathy, supple and no JVD Neck Narrative: Short thick neck, trachea midline, no thyroid enlargement noted Lymph Lymphatic: no lymphadenopathy noted Resp normal respiratory effort, normal air movement, no retractions, no use of accessory muscles and clear to auscultation bilaterally Resp Narrative: Diffusely diminished, breath sounds are distant secondary body habitus Auscultation: Negative for crackles, rales, rhonchi or wheezes Cardio regular rate, regular rhythm, S1 normal heart sound, S2 normal heart sound, no murmurs, no rub, no gallops, no clicks and no JVD Cardio Narrative: Distant secondary to body habitus GI normal to inspection, nondistended, normoactive bowel sounds, soft to palpation, non-tender and non-distended GI Narrative: obese Extremity normal capillary refill and no clubbing, cyanosis or edema Skin no rashes or lesions noted, no wounds, skin turgor normal and no jaundice General Skin Exam: turgor normal Neuro oriented x3, CN's II-XII intact bilaterally, moves all extremities and no focal motor deficits Sensorium / Orientation: awake and alert Speech: speech normal Psych affect normal Weight / BMI Weight Weight: 171 kg Body Mass Index (BMI) 62.5 ABG / Lab / Microbiology Data Result Diagrams: 01/12/21 06:20 01/12/21 06:20 Laboratory: Laboratory Results - last 24 hr 01/11/21 16:38: POC Glucose 389 H 01/11/21 21:05: POC Glucose 357 H 01/12/21 06:20: WBC 9.6, RBC 4.05 L, Hgb 11.7 L, Hct 36.0 L, MCV 88.9, MCH 28.9, MCHC 32.5, RDW Std Deviation 47.5 H, RDW Coeff of Milo 14.6, Plt Count 463 H, MPV 10.0, Neut % (Auto) Not Reportable, Absolute Neuts (auto) 7.3, Absolute Lymphs (auto) 0.96, Total Counted 100, Neutrophils % (Manual) 74 H, Band Neutrophils % 2, Lymphocytes % (Manual) 10 L, Monocytes % (Manual) 11 H, Eosinophils % (Manual) 2, Myelocytes % 1 H, Diff Path Review Reviewed, Platelet Estimate ADEQUATE, RBC Morphology NORM C+C 01/12/21 06:20: Sodium 137, Potassium 3.8, Chloride 104, Carbon Dioxide 24.0, Anion Gap 9, BUN 29 H, Creatinine 0.83, Estim Creat Clear Calc 71.69, Est GFR (MDRD) Af Amer 92, Est GFR (MDRD) Non-Af 76, BUN/Creatinine Ratio 35.1 H, Glucose 253 H, Calcium 9.2, Total Bilirubin 0.30, AST 11 L, ALT 21, Alkaline Phosphatase 85, Total Protein 6.7, Albumin 2.2 L, Globulin 4.5 H, Albumin/Globulin Ratio 0.5 L 01/12/21 09:19: POC Glucose 211 H 01/12/21 12:41: POC Glucose 339 H Microbiology: Microbiology 01/08/21 11:03 Sputum, Expectorated/Coughed Gram Stain - Final 01/08/21 11:03 Sputum, Expectorated/Coughed Respiratory Culture - Final Enterobacter aerogenes 01/04/21 01:30 Nasal Secretion SARS-CoV-2 Antigen (Rapid) - Final SARS-CoV-2 (COVID 19) D/C Instructions Discharge Diet: Low fat / Low cholesterol and 1800 Calorie Control Diet Discharge Activity: Return to Normal Activity Return to work on: 01/19/21 Meaningful Use Info Meaningful Use Diagnoses (Choose all that apply): None applicable Discharge Plan Admission Admit Date/Time: 01/04/21 04:38 Primary Reason for Your Visit: Acute hypoxic respiratory failure secondary to COVID-19 Attending Provider: Cindy Chaidez Primary Care Provider: Vincent Yepez Consulting Providers: Jared Malik ; Jean Zuleta ; John Vargas ; Mckenna Sharma ACQUISITION CONSULTANT Instructions Additional Instructions / Restrictions: 1. Will need to self quarantine until 01/18/2021 2. Expect blood sugars to run high until Decadron has been completed on 01/13/2021 3. Take a full dose aspirin and Protonix for 30 days after discharge to prevent blood clot formation -Avoid any other nonsteroidal anti-inflammatory drugs such as Advil/ibuprofen/naproxen 4. Please take full course of oral antibiotics 5. Follow-up with PCP once out of quarantine to further assess blood sugars and needs for any changes to home diabetes regimen 6. Recommend follow-up with pulmonary after out of quarantine as noted below 7. Continue incentive spirometer and Acapella at home 8. Continue mobilization is much as possible at home 9. Check home pulse oximetry periodically to assure her oxygen saturations are greater than 88% on supplemental oxygen as ordered--> if not call PCP or return to the emergency department 10. Get aspirin and omeprazole [id number] both to be taken for 30 days and then may discontinue Discharge Orders/Prescriptions Prescriptions: New levofloxacin 750 mg Tablet 750 mg PO DAILY@0600 Qty: 4 RF: 0 dexamethasone [Decadron] 6 mg tablet 6 mg PO DAILY Qty: 1 RF: 0 aspirin 325 mg tablet,delayed release (DR/EC) 325 mg PO DAILY Qty: 30 RF: 0 omeprazole 20 mg tablet,delayed release (DR/EC) 20 mg PO BID Qty: 60 RF: 0 Continued glimepiride 2 mg tablet 2 mg PO DAILY RF: 0 clonazepam 0.5 mg tablet 0.5 mg PO TID PRN (Reason: Anxiety) RF: 0 duloxetine 30 mg capsule,delayed release(DR/EC) 90 mg PO DAILY RF: 0 budesonide-formoterol 1 INHALER inhaler 2 puff INHALATION BID RF: 0 hydrochlorothiazide 25 MG tablet 25 mg PO DAILY Qty: 30 RF: 0 albuterol sulfate 1 PUFF inhaler 1 - 2 puff INHALATION Q4H PRN PRN (Reason: Wheezing) RF: 0 metformin 500 MG tablet 1,000 mg PO BID RF: 0 cetirizine 10 MG capsule 10 mg PO DAILY RF: 0 lisinopril 10 MG tablet 20 mg PO DAILY RF: 0 metoprolol tartrate 50 mg tablet 50 mg PO BID RF: 0 tramadol 50 mg tablet 50 mg PO Q8H PRN (Reason: Pain 1-10 Or Fever) RF: 0 gabapentin 300 mg capsule 600 mg PO TID RF: 0 citalopram 20 mg tablet 20 mg PO DAILY RF: 0 Held meloxicam 15 mg tablet 7.5 mg PO DAILY RF: 0 Hold Instructions: Resume on 02/09/21. Referrals / Follow Up: Jean Zuleta MD [STAFF PHYSICIAN] - Within 1 Month (Hospital follow-up for Covid) Vincent Yepez [Primary Care Provider] - Within 2 Weeks (Hospital follow-up) Disposition Disposition (needs filled in before D/C Order can be placed): Home, Self Care Charges/Coding Visit Charges Inpatient E&M: 43633 Disch Hosp
== END 2021-01-12 17:23 | disposition home health service (06) | DRG 177 ==
LOC: ED 03:45 → PCU 06:44 → ICU 08:14 → PCU 01-07 11:31
PROVIDERS: Family Medicine; Internal Medicine Critical Care Medicine; Internal Medicine Infectious Disease; Admitting Provider Family Medicine; Emergency Provider Emergency Medicine; Visit Provider Internal Medicine
DX: U07.1 COVID-19 (principal); J12.82 Pneumonia due to coronavirus disease 2019; J96.01 Acute respiratory failure with hypoxia; J15.6 Pneumonia due to other Gram-negative bacteria; Z68.44 Body mass index [BMI] 60.0-69.9, adult; N17.9 Acute kidney failure, unspecified; I47.1 Supraventricular tachycardia; E11.65 Type 2 diabetes mellitus with hyperglycemia; E11.40 Type 2 diabetes mellitus with diabetic neuropathy, unspecified; I10 Essential (primary) hypertension; E78.5 Hyperlipidemia, unspecified; J45.909 Unspecified asthma, uncomplicated; M79.7 Fibromyalgia; M81.0 Age-related osteoporosis without current pathological fracture; G47.33 Obstructive sleep apnea (adult) (pediatric); E66.01 Morbid (severe) obesity due to excess calories; F40.00 Agoraphobia, unspecified; F41.0 Panic disorder [episodic paroxysmal anxiety]; F32.A Depression, unspecified; Z87.891 Personal history of nicotine dependence; Z96.652 Presence of left artificial knee joint
CPT/HCPCS: 36415; 36569; 71275; 80048; 80053; 80076; 82550; 82962; 83615; 83735; 83880; 84145; 84484; 85025; 85027; 85379; 85384; 85610; 85730; 86140; 87070; 87077; 87186; 87205; 87426; 93005; 94003; 94640; 94660; 94667; 94668; 94762; 97110; 97162; 97166; 97530; 97535; 99251; 99284; J7030; J7040; J7050; Q9967; A4216; G0463; J1940; J2405

== ENCOUNTER 2021-04-15 11:29 | Outpatient (CLI) | payer OTHER, SELFPAY ==
--- NOTE | 2021-04-15 11:33 | RAD_ITS ---
STUDY: X-RAY - RIGHT KNEE REASON FOR EXAM: Female, 55 years old. Knee pain. TECHNIQUE: 4 view(s) of the knee. COMPARISON: 12/18/2017. FINDINGS: Osteopenia. Stable small ossific fragment projected medial to the proximal medial tibial plateau. Progression of medial compartmental arthrosis with osteophyte formation. Moderate arthrosis of the lateral femorotibial compartment with osteophytes. Slight lateral tilt and subluxation of the patella with moderate arthrosis of the patellofemoral compartment. The soft tissue structures are unremarkable. RAD/Knee 4 or More Views IMPRESSION: Progression of tricompartmental arthrosis. No acute abnormality, evidence of erosive changes or fusion. Electronically Signed: Raúl Young MD at 12:28 EST ,
== END 2021-04-15 23:59 | disposition home or self-care (01) ==
LOC: MTRAD 11:32
PROVIDERS: Referring Provider Anesthesiology Pain Medicine; Visit Provider Anesthesiology Pain Medicine
DX: M25.561 Pain in right knee (principal)
CPT/HCPCS: 73564

== ENCOUNTER 2021-04-23 12:06 | Emergency (ER) | payer OTHER, SELFPAY ==
[2021-04-23 12:07] VITALS: BP 147/114; PULSE 204; RESP 16; O2SAT 95
[2021-04-23 12:08] VITALS: PULSE 201; RESP 18; TEMP 36.4; O2SAT 98; BMI 61.9
--- NOTE | 2021-04-23 12:15 | RAD_ITS ---
STUDY: X-RAY CHEST REASON FOR EXAM: Female, 55 years old. Chest pain TECHNIQUE: Single AP portable view of the chest. COMPARISON: 04/17/2020. FINDINGS: Mild elevation of the right hemidiaphragm. The lungs are clear and expanded. There is no demonstrated pleural abnormality. Normal size heart. Normal mediastinum and hemal. Normal visualized pulmonary arteries. Normal visualized aortic arch and descending thoracic aorta. Normal visualized thoracic spine. Normal visualized ribs, clavicles, and shoulders. There is no demonstrated abnormality of the visualized soft tissue structures of the upper abdomen. RAD/Chest 1 View (Portable) IMPRESSION: No active pulmonary disease. Electronically Signed: Rick Reynolds MD at 12:51 EDT ,
--- NOTE | 2021-04-23 12:15 | EKG12_ITS ---
Test Reason : SVT Blood Pressure : / mmHG Vent. Rate : 206 BPM Atrial Rate : 206 BPM P-R Int : 000 ms QRS Dur : 074 ms QT Int : 216 ms P-R-T Axes : 000 012 155 degrees QTc Int : 399 ms Supraventricular tachycardia Abnormal ECG Confirmed by MAULIK JONES, KWAKU ([id number]), news editor RAQUEL GILL ([id number]) on 04/25/2021 11:19:17 A M Referred By: TEVIN Confirmed By:CAROLYN WILLINGHAM MD
[2021-04-23 12:17] VITALS: O2SAT 95
--- NOTE | 2021-04-23 12:17 | EDS_ITS ---
HPI History of Present Illness Chief Complaint: Palpitations Informant: patient Narrative Narrative: Patient presents with chief complaint of SVT. She has had this many times before. Normally adenosine helps. She takes metoprolol for this. She is not sure the dose. She states she takes it once a day but her med list lists that is 50 twice a day. Her SVT started about 40 minutes ago. She took her metoprolol at that time. She has not missed prior dosages. She denies any other change in medicines. She has not been on any decongestants or antihistamines. She has been feeling at her normal state of health recently. She has not been ill. She states she does not have chest pain with this but if it goes on for a while she will likely develop that. She does have mild dyspnea which is typical. She cannot think of anything that started this. [facility] Medical History Agoraphobia Anxiety Asthma Bronchitis Depression Diabetes Essential hypertension Fibromyalgia Fibromyalgia HLD (hyperlipidemia) Hyperlipidemia Hypertension Irregular heart beat Morbid obesity Morbid obesity TAMMI (obstructive sleep apnea) TAMMI on CPAP Osteoporosis Pneumonia Pneumonia due to 2019 novel coronavirus Sleep apnea Supraventricular tachycardia Tobacco use Type 2 diabetes mellitus Home Medications budesonide-formoterol 2 puff INHALATION BID 06/30/14 [History Last Taken 01/03/21 07:00] hydrochlorothiazide 25 mg PO DAILY #30 tab 06/30/14 [Rx Last Taken 11/16/19 08:00] albuterol sulfate 1 - 2 puff INHALATION Q4H PRN PRN 11/16/19 [History Last Taken 01/03/21 07:00] metformin 1,000 mg PO BID 11/16/19 [History Last Taken 11/16/19 08:00] clonazepam 0.5 mg tablet 0.5 mg PO TID PRN 01/05/20 [History Last Taken 01/02/21 22:00] duloxetine 30 mg capsule,delayed release 90 mg PO DAILY cap 01/05/20 [History Last Taken 01/03/21 07:00] glimepiride 2 mg tablet 2 mg PO DAILY 01/05/20 [History Last Taken 01/03/21 07:00] meloxicam 15 mg tablet 7.5 mg PO DAILY 01/05/20 [History Last Taken Unknown] cetirizine 10 mg PO DAILY 04/17/20 [History Last Taken 01/03/21 07:00] lisinopril 20 mg PO DAILY 04/17/20 [History Last Taken Unknown] citalopram 20 mg tablet 20 mg PO DAILY 12/20/20 [History Last Taken 01/03/21 07:00] gabapentin 300 mg capsule 600 mg PO TID cap 12/20/20 [History Last Taken 1 03/05/20 07:00] tramadol 50 mg tablet 50 mg PO Q8H PRN tab 12/20/20 [History Last Taken Unknown] aspirin 325 mg PO DAILY #30 tab 01/12/21 [Rx Last Taken Unknown] levofloxacin 750 mg PO DAILY@0600 #4 tab 01/12/21 [Rx Last Taken Unknown] omeprazole 20 mg PO BID #60 tab 01/12/21 [Rx Last Taken Unknown] metoprolol tartrate 50 mg tablet 50 mg PO BID #180 tab 01/17/21 [Rx Last Taken Unknown] Allergy/AdvReac Type Severity Reaction Status Date / Time morphine AdvReac Aggressive Verified 04/23/21 12:14 Family History Father Diabetes Colon cancer Cancer Liver Cancer Mother Hypertension Arthritis Mental disorder Surgical History H/O colonoscopy with polypectomy History of delivery History of left knee replacement History of tonsillectomy Social History Smoking Status: Former smoker alcohol intake: never substance use type: does not use ROS ROS ED Constitutional Constitutional ED: Denies chills or fever(s) Eyes Eyes: Denies change in vision ENT ENT ED: Denies rhinorrhea or sore throat Cardiovascular Cardiovascular: Reports palpitations and racing heartbeat; Denies chest pain Respiratory/Chest Respiratory/Chest: Reports dyspnea; Denies cough or sputum Gastrointestinal Gastrointestinal: Denies nausea or vomiting Musculoskeletal Musculoskeletal: Denies arthralgias or myalgias Integumentary Denies rash Neurologic Neurologic: Denies headache(s), paresthesias or weakness Psychiatric Psychiatric: Reports anxiety Endocrine Endocrinology: Denies polydipsia or polyuria Allergic/Immunologic Allergic/Immunologic ED: Denies urticaria EXAM Physical Exam Const Vital Signs: 04/23/21 12:07 04/23/21 12:08 04/23/21 12:14 Temperature 97.6 F L Temperature Source Temporal Pulse Rate 204 H 201 H Respiratory Rate 16 18 Respiratory Effort Short of Breath Blood Pressure 147/114 H Blood Pressure Mean 125 Pulse Ox 95 98 Oxygen Delivery Method Room Air Room Air 04/23/21 12:17 04/23/21 12:30 04/23/21 14:11 Temperature Temperature Source Pulse Rate 106 H 96 Respiratory Rate 12 18 Respiratory Effort Blood Pressure 117/70 118/56 L Blood Pressure Mean 85 76 Pulse Ox 95 95 95 Oxygen Delivery Method Room Air Room Air Room Air Positive well nourished, well developed and obese Constitutional Narrative: Patient is awake alert appropriate. She is nontoxic. Not diaphoretic. Breathing looks easy. General Appearance ED: well developed and NAD; Negative for cyanotic or diaphoretic Nutritional Appearance: obese HEENT Reports moist mucous membranes Eyes General Eye ED: Negative for pale conjunctiva or scleral icterus Neck no JVD Chest Wall inspection of chest normal Resp normal respiratory effort and clear to auscultation bilaterally Cardio regular rhythm Rate: tachycardic and other Other Details: Rhythm is tachycardic at about 200. It is regular. GI normal to inspection, nondistended, normoactive bowel sounds Back/Spine no CVA tenderness Extremity normal to inspection Neuro oriented x3 Sensorium / Orientation: alert MDM MDM MDM Narrative Medical decision making narrative: We had some difficulty getting IV on this patient. This has occurred before. We then tried Valsalva with 10 cc syringe, laying back and leg elevation. This slowed her heart rate to the 180s but did not break the SVT. We were then able to get an IV in. She was given 6 mg of Adenocard with IV saline push to follow. She again got a slowing of her heart rate slightly but not a break. We then repeated Identicard with 12 mg. She then converted into a normal sinus rhythm with a rate that was running 115-130. She feels much better. She will be watched longer. Labs are pending. CBC shows minimal elevation of white count at 12.6 which is nonspecific. Electrolytes show no marked abnormalities. She did have slightly high BUN to creatinine ratio. She was given some IV fluids. Troponin was negative. Heart rate is stay low. She is currently about 90 in a normal sinus rhythm and feels fine. Her x-ray looks clear. Patient would like to go home. She now recalls that she is on metoprolol twice a day but she thinks she missed it last night. This is likely a contributing factor. We discussed reasons to return and medication use. Lab Data Attestation: I reviewed the patient's lab results. Labs: Laboratory Results - last 24 hr 04/23/21 04/23/21 12:20 12:20 WBC 12.6 H RBC 4.60 Hgb 14.2 Hct 41.6 MCV 90.4 MCH 30.9 MCHC 34.1 RDW Std Deviation 45.0 H RDW Coeff of Milo 13.7 Plt Count 352 MPV 9.8 Immature Gran % (Auto) 0.700 Neut % (Auto) 43.4 L Lymph % (Auto) 38.2 [place] % (Auto) 6.0 Eos % (Auto) 10.5 H Baso % (Auto) 1.2 H Absolute Neuts (auto) 5.5 Absolute Lymphs (auto) 4.82 H Nucleated RBC % 0 Sodium 134 L Potassium 3.8 Chloride 100 Carbon Dioxide 23.0 Anion Gap 11 BUN 21 H Creatinine 0.90 Estim Creat Clear Calc 66.12 Est GFR (MDRD) Af Amer 84 Est GFR (MDRD) Non-Af 69 BUN/Creatinine Ratio 23.4 H Glucose 331 H Calcium 9.6 Troponin I High Sens 7 Radiography Diagnostic Testing: Clinical Impression(s) from Imaging Studies Chest X-Ray 04/23/21 12:15 IMPRESSION: No active pulmonary disease. Electronically Signed: Rick Reynolds MD at 12:51 EDT , EKG Initial EKG: Comments: EKG done for tachycardia read by me shows supraventricular tachycardia with a regular rate of 206. No ventricular ectopy noted. Diffuse ST changes. This is consistent with rate. QRS is narrow at 74 ms. QTc is measured at 399 ms which is normal. Follow-up EKG: Comments: Repeat EKG done immediately after adenosine shows sinus rhythm but tachycardic rate at 127. No ventricular ectopy. Mild nonspecific ST and T wave abnormalities. No convincing evidence of acute infarct. DC interval, QRS duration and QTc are normal. Procedures Other Procedures Procedure(s): Chemical cardioversion of SVT. Please see MDM Discharge Plan Triage Chief Complaint: Palpitations ED Provider: Sterling Putnam Dx/Rx/DC Orders Clinical Impression: Supraventricular tachycardia, History of cardioversion Instructions: Supraventricular Tachycardia Prescriptions: No Action glimepiride 2 mg tablet 2 mg PO DAILY RF: 0 clonazepam 0.5 mg tablet 0.5 mg PO TID PRN (Reason: Anxiety) RF: 0 duloxetine 30 mg capsule,delayed release(DR/EC) 90 mg PO DAILY RF: 0 meloxicam 15 mg tablet 7.5 mg PO DAILY RF: 0 Hold Instructions: Resume on 02/09/21. budesonide-formoterol 1 INHALER inhaler 2 puff INHALATION BID RF: 0 hydrochlorothiazide 25 MG tablet 25 mg PO DAILY Qty: 30 RF: 0 albuterol sulfate 1 PUFF inhaler 1 - 2 puff INHALATION Q4H PRN PRN (Reason: Wheezing) RF: 0 metformin 500 MG tablet 1,000 mg PO BID RF: 0 cetirizine 10 MG capsule 10 mg PO DAILY RF: 0 lisinopril 10 MG tablet 20 mg PO DAILY RF: 0 levofloxacin 750 mg Tablet 750 mg PO DAILY@0600 Qty: 4 RF: 0 aspirin 325 mg tablet,delayed release (DR/EC) 325 mg PO DAILY Qty: 30 RF: 0 omeprazole 20 mg tablet,delayed release (DR/EC) 20 mg PO BID Qty: 60 RF: 0 tramadol 50 mg tablet 50 mg PO Q8H PRN (Reason: Pain 1-10 Or Fever) RF: 0 gabapentin 300 mg capsule 600 mg PO TID RF: 0 citalopram 20 mg tablet 20 mg PO DAILY RF: 0 metoprolol tartrate 50 mg tablet 50 mg PO BID Qty: 180 RF: 3 Primary Care Provider: Vincent Yepez Referrals: Vincent Yepez [Primary Care Provider] - 3-5 Days Disposition Disposition: Home, Self Care
[2021-04-23] MEDS: Adenosine 6 MG/2 ML Syringe IV ×2 (12:22→12:23)
--- NOTE | 2021-04-23 12:29 | ED.RN ---
PT. FIRST TRIED THE VASOVAGAL BLOW MANEUVER WITH FEET UP AT 1220. UNSUCCESSFUL. DR. ABARCA AT BEDSIDE.
[2021-04-23 12:30] VITALS: BP 117/70; PULSE 106; RESP 12; O2SAT 95
[2021-04-23 12:30] LABS: Absolute Lymphocyte Count 4.82 X10^3/uL (0.83-4.51); Absolute Neutrophil Count 5.5 X10^3/uL (2.0-7.7); Basophil# 0.15 X10^3/uL; Basophil% 1.2 % (0-1); Eosinophil# 1.32 X10^3/uL; Eosinophils% 10.5 % (0-5); Hematocrit 41.6 % (37-47); Hemoglobin 14.2 g/dL (12.0-15.0); Lymphocyte # 4.82 X10^3/ul (0.83-4.51); Lymphocyte % 38.2 % (19-41); Mean Corp Hgb Conc 34.1 g/dL (32-36); Mean Corpuscular Hgb 30.9 pg (27.0-32.0); Mean Corpuscular Volume 90.4 fL (81-99); Mean Platelet Vol. 9.8 fl (6.2-12.0); Monocyte# 0.76 X10^3/uL; NRBC Flagged by Analyzer 0 % (0-5); Neutrophil # 5.47 X10^3/uL (2.7-7.7); Neutrophil % 43.4 % (47-70); Platelet Count 352 K/mm3 (150-450); RBC Distribution Width CV 13.7 % (11.6-14.6); White Blood Count 12.6 K/mm3 (4.4-11.0)
--- NOTE | 2021-04-23 12:35 | EKG12_ITS ---
Test Reason : POST 12 ADENOCARD Blood Pressure : / mmHG Vent. Rate : 127 BPM Atrial Rate : 127 BPM P-R Int : 156 ms QRS Dur : 074 ms QT Int : 296 ms P-R-T Axes : 050 024 082 degrees QTc Int : 430 ms Sinus tachycardia Nonspecific ST and T wave abnormality Abnormal ECG Confirmed by MAULIK JONES, KWAKU ([id number]), news videotape editor RAQUEL GILL ([id number]) on 04/25/2021 11:19:32 A M Referred By: TEVIN Confirmed By:CAROLYN WILLINGHAM MD
[2021-04-23 12:47] LABS: Anion Gap 11 (5-15); BUN 21 mg/dL (7-18); BUN/Creat Ratio 23.4 RATIO (10-20); Calcium,Total 9.6 mg/dL (8.5-10.1); Chloride 100 mmol/L (98-107); EST Glomerular Filtration Rate 69 mL/min (>60); Est Glom Filt Rate - Afr Amer 84 mL/min (>60); Estimated Creatinine Clearance 66.12 ml/min; Glucose 331 mg/dL (74-106); Potassium 3.8 mmol/L (3.5-5.1); Sodium Level 134 mmol/L (136-145); Troponin-I HS 7 pg/mL (3.0-54.0)
[2021-04-23 14:11] VITALS: BP 118/56; PULSE 96; RESP 18; O2SAT 95
== END 2021-04-23 14:25 | disposition home or self-care (01) ==
PROVIDERS: Emergency Provider Emergency Medicine; Visit Provider Emergency Medicine
DX: I47.1 Supraventricular tachycardia (principal); E66.01 Morbid (severe) obesity due to excess calories; E11.9 Type 2 diabetes mellitus without complications; I10 Essential (primary) hypertension; E78.5 Hyperlipidemia, unspecified; M79.7 Fibromyalgia; G47.33 Obstructive sleep apnea (adult) (pediatric); Z79.82 Long term (current) use of aspirin; Z79.84 Long term (current) use of oral hypoglycemic drugs; Z79.1 Long term (current) use of non-steroidal anti-inflammatories (NSAID); Z79.899 Other long term (current) drug therapy; Z87.891 Personal history of nicotine dependence
CPT/HCPCS: 71045; 80048; 84484; 85025; 93005; 96361; 96374; 99285; J7030; A4216; J0153

== ENCOUNTER → 2021-07-25 | Outpatient (CLI) | payer OTHER, SELFPAY ==
[2021-07-25 12:41] LABS: Alcohol, Blood (Medical)-Serum < 3.0 mg/dL
[2021-07-25 12:43] LABS: Amphetamine Urine VISTA NEGATIVE (<1000 ng/mL); Barbiturate Urine VISTA NEGATIVE (< 200 ng/mL); Benzodiazepine Urine VISTA NEGATIVE (< 200 ng/mL); Cocaine Urine VISTA NEGATIVE (< 300 ng/mL); Ecstacy Urine VISTA NEGATIVE (< 500 ng/mL); Methadone Urine VISTA NEGATIVE (< 300 ng/mL); PCP Urine VISTA NEGATIVE (< 25 ng/mL); THC Urine VISTA NEGATIVE (< 50 ng/mL); Vista UDS pH Range 6
[2021-07-25 12:49] LABS: Absolute Neutrophil Count 4.2 X10^3/uL (2.0-7.7); Basophil% 1.4 % (0-1); Eosinophil# 0.48 X10^3/uL; Eosinophils% 6.6 % (0-5); Hematocrit 40.8 % (37-47); Hemoglobin 13.6 g/dL (12.0-15.0); Lymphocyte % 24.8 % (19-41); Mean Corp Hgb Conc 33.3 g/dL (32-36); Mean Corpuscular Hgb 30.4 pg (27.0-32.0); Mean Corpuscular Volume 91.1 fL (81-99); Mean Platelet Vol. 10.4 fl (6.2-12.0); Monocyte# 0.65 X10^3/uL; NRBC Flagged by Analyzer 0 % (0-5); Neutrophil # 4.16 X10^3/uL (2.7-7.7); Neutrophil % 57.2 % (47-70); Platelet Count 290 K/mm3 (150-450); RBC Distribution Width CV 13.6 % (11.6-14.6); RBC Distribution Width SD 45.5 fl (35.1-43.9); Red Blood Count 4.48 M/mm3 (4.2-5.4); White Blood Count 7.3 K/mm3 (4.4-11.0)
[2021-07-25 12:52] LABS: Vitamin B12 356 pg/mL (211-911); Vitamin D,25 Hydroxy 30.6 ng/mL
[2021-07-25 13:38] LABS: ALB/GLOB Ratio 0.9 RATIO (0.9-2.4); AST(SGOT) 42 U/L (15-37); Alanine Aminotransfer ALT/SGPT 72 U/L (13-56); Albumin, Serum 3.4 g/dL (3.2-5.0); Alkaline Phosphatase 124 U/L (45-117); Anion Gap 10 (5-15); BUN 15 mg/dL (7-18); BUN/Creat Ratio 19.7 RATIO (10-20); Calcium,Total 9.1 mg/dL (8.5-10.1); Chloride 102 mmol/L (98-107); Cholesterol 229 mg/dL (200); Creatinine, Serum 0.76 mg/dL (0.55-1.02); EST Glomerular Filtration Rate 84 mL/min (>60); Est Glom Filt Rate - Afr Amer 101 mL/min (>60); Ferritin 59 ng/mL (8-252); Globulin 3.9 g/dL (2.2-4.2); Glucose 276 mg/dL (74-106); High Density Lipoprotein 48 mg/dL; Iron 68 ug/dL (50-170); Potassium 4.2 mmol/L (3.5-5.1); Protein, Total 7.3 g/dL (6.4-8.2); Sodium Level 136 mmol/L (136-145); Triglycerides 273 mg/dL; Very Low Density Lipoprotein 55 mg/dL (5-40)
[2021-07-25 13:55] LABS: Hemoglobin A1c 9.5 % (3.8-5.6)
== END | disposition home or self-care (01) ==
LOC: MTLAB 10:40
DX: E78.5 Hyperlipidemia, unspecified (principal); E11.65 Type 2 diabetes mellitus with hyperglycemia; I10 Essential (primary) hypertension
CPT/HCPCS: 36415; 80053; 80061; 80307; 82077; 82306; 82607; 82728; 83036; 83540; 84443; 85025

== ENCOUNTER → 2021-08-04 | Outpatient (CLI) | payer OTHER, SELFPAY ==
--- NOTE | 2021-08-04 08:36 | STRESSREP_ITS ---
Stress Test Report Date: Procedure: Pharmacologic stress nuclear imaging study Indications: SVT; preoperative cardiovascular evaluation Consent: Per the patient Procedure: The patient underwent pharmacologic (Regadenoson 0.4mg ) evaluation with a peak heart rate of 96 beats per minute (58%predicted maximal heart rate) and a peak blood pressure of 128/82 mmHg. The baseline ECG demonstrated normal sinus rhythm. The peak pharmacologic ECG demonstrated no obvious ECG changes. There were no cardiac dysrhythmias pretest, during pharmacologic infusion, or recovery. There was no complaint of chest discomfort during pharmacologic infusion or recovery. The examination was discontinued secondary to completion of protocol. Impression: 1. Pharmacologic (Regadenoson) evaluation 2. Peak pharmacologic ECG with no obvious ECG changes. 3. There were no cardiac dysrhythmias pretest, during pharmacologic infusion, or recovery. 4. Nuclear images pending Myocardial perfusion imaging study: Technique: The patient was injected with 14.9 millicuries of technetium 99m Cardiolite and subsequently rest SPECT Cardiolite nuclear imaging was obtained in the horizontal long, vertical long, and short axis views. The patient underwent pharmacologic (Regadenoson) evaluation with a peak heart rate of 96 beats per minute (58% percent predicted maximal heart rate) and a peak blood pressure of 128/82 mmHg. The patient was injected with 45.0 millicuries of technetium 99m Cardiolite and subsequently stress SPECT Cardiolite nuclear imaging was obtained in the horizontal long, vertical long, and short axis views. A gated Cardiolite study at peak stress was obtained. Interpretation: Rest and stress SPECT Cardiolite nuclear imaging status post realignment, normalization, and attenuation correction demonstrate relative uniform tracer uptake and myocardial perfusion appearing within normal limits. There is end systolic thickening and brightening. The gated Cardiolite study demonstrates myocardial thickening and inward wall motion. The reported LVEF is 66%. Impression: 1. Rest and stress SPECT Cardiolite nuclear imaging demonstrate relative uniform tracer uptake and myocardial perfusion appearing within normal limits. 2. The gated Cardiolite study reports an LVEF of 66%. This note was generated with [employer] software. It may contain incorrect words, spelling, and punctuation that were not noted in checking the note before signing.
== END | disposition home or self-care (01) ==
LOC: CVS 06:15
PROVIDERS: PCP Family Medicine; Referring Provider Nurse Practitioner Gerontology; Visit Provider Nurse Practitioner Gerontology
DX: Z01.810 Encounter for preprocedural cardiovascular examination (principal); I47.1 Supraventricular tachycardia
CPT/HCPCS: 78452; 93017; A9500; A4216; J2785

== ENCOUNTER → 2021-08-16 | Outpatient (CLI) | payer OTHER, SELFPAY | END | disposition home or self-care (01) | LOC: SL 11:21 | PROVIDERS: PCP Family Medicine; Visit Provider Nurse Practitioner Acute Care | DX: Z46.89 Encounter for fitting and adjustment of other specified devices (principal) ==

== ENCOUNTER → 2021-12-23 | Outpatient (CLI) | payer OTHER, SELFPAY ==
--- NOTE | 2021-12-23 08:10 | CT_ITS ---
STUDY: LOW DOSE CT LUNG CANCER SCREENING REASON FOR EXAM: Female, 56 years old. Smoker and gt; 20 pack years RADIATION DOSAGE (If Supplied By Facility): CTDIvol = ( 4.02 ) mGy, DLP = ( 137.93 ) mGycm TECHNIQUE: No contrast was administered. Low dose technique was utilized (average mAS-38 and kVp 120). 1.25 mm axial source images with a slice interval of 1.25-mm were reconstructed in lung windows. 2.5 mm axial source images with a slice interval of 2.5-mm were reconstructed in lung windows. 5.0 mm axial source images with a slice interval of 5.0-mm were reconstructed in soft tissue windows. COMPARISON: Comparison is made with prior CT scan of thorax dated 01/04/2021. NODULES: No suspicious nodules are seen. Emphysema: Mild degree of hyperinflation . The previously seen diffuse bilateral pulmonary infiltrates have cleared. Endobronchial lesion: None Aorta: Unremarkable. CORONARY ARTERIES: Coronary artery calcification is seen. Heart: Remarkable Pulmonary artery: Unremarkable Mediastinal nodes: Unremarkable Other chest and abdominal findings: CT/Low Dose CT Lung Screening IMPRESSION: Lung-RADS category 2 - Continue annual screening with LDCT in 12 months. IMPORTANT NOTES FOR USE: ACR Lung-RADS Version 1.1 Assessment Categories Release Date: 2018 Category: Coded 0-4 bases on nodule(s) with highest degree of suspicion. Negative screen is defined as categories 1 and 2; a positive screen is defined as categories 3 and 4. Category 3 and 4A nodules that are unchanged on interval CT should be coded as category 2, and individuals returned to screening in 12 months. Category 4X: Category 3 or 4 nodules with additional imaging findings that increase the suspicion of lung cancer, such as spiculation, GGN that doubles in size in 1 year, enlarged lymph notes, etc. Category Modifiers: S (significant finding unrelated to lung cancer) Electronically Signed: Rajinder Duncan MD at 9:33 EST ,
== END | disposition home or self-care (01) ==
LOC: CT 08:09
PROVIDERS: PCP Family Medicine; Visit Provider Nurse Practitioner Acute Care
DX: F17.210 Nicotine dependence, cigarettes, uncomplicated (principal)
CPT/HCPCS: 71271

== ENCOUNTER → 2022-10-13 | Outpatient (CLI) | payer BC, SELFPAY ==
[2022-10-13 12:28] LABS: Absolute Lymphocyte Count 2.28 X10^3/uL (0.83-4.51); Absolute Neutrophil Count 4.4 X10^3/uL (2.0-7.7); Basophil% 1.3 % (0-1); Eosinophil# 0.42 X10^3/uL; Eosinophils% 5.4 % (0-5); Hematocrit 39.1 % (37-47); Hemoglobin 12.9 g/dL (12.0-15.0); Lymphocyte # 2.28 X10^3/ul (0.83-4.51); Mean Corpuscular Hgb 30.9 pg (27.0-32.0); Mean Corpuscular Volume 93.8 fL (81-99); Mean Platelet Vol. 10.1 fl (6.2-12.0); Monocyte# 0.61 X10^3/uL; Monocyte% 7.8 % (0-10); NRBC Flagged by Analyzer 0 % (0-5); Neutrophil # 4.42 X10^3/uL (2.7-7.7); Neutrophil % 56.2 % (47-70); Platelet Count 314 K/mm3 (150-450); RBC Distribution Width CV 13.2 % (11.6-14.6); RBC Distribution Width SD 45.2 fl (35.1-43.9); Red Blood Count 4.17 M/mm3 (4.2-5.4); White Blood Count 7.9 K/mm3 (4.4-11.0)
[2022-10-13 13:04] LABS: Vitamin B12 466 pg/mL (211-911)
[2022-10-13 13:11] LABS: ALB/GLOB Ratio 0.9 RATIO (0.9-2.4); AST(SGOT) 17 U/L (15-37); Alanine Aminotransfer ALT/SGPT 26 U/L (13-56); Albumin, Serum 3.2 g/dL (3.2-5.0); Alkaline Phosphatase 99 U/L (45-117); Anion Gap 5 (5-15); BUN 18 mg/dL (7-18); BUN/Creat Ratio 25.8 RATIO (10-20); Calcium,Total 9.2 mg/dL (8.5-10.1); Chloride 108 mmol/L (98-107); Cholesterol 218 mg/dL (200); EST Glomerular Filtration Rate 92 mL/min (>60); Est Glom Filt Rate - Afr Amer 112 mL/min (>60); Globulin 3.7 g/dL (2.2-4.2); Glucose 100 mg/dL (74-106); High Density Lipoprotein 41 mg/dL; Iron 69 ug/dL (50-170); Iron Binding Capacity,Total 284 ug/dL (250-450); PERCENT IRON SATURATION 24.3 % (15.0-55.0); Protein, Total 6.9 g/dL (6.4-8.2); Sodium Level 139 mmol/L (136-145); Triglycerides 219 mg/dL; Very Low Density Lipoprotein 44 mg/dL (5-40)
[2022-10-13 13:27] LABS: Hemoglobin A1c 5.2 % (3.8-5.6)
[2022-10-16 12:08] LABS: Vitamin D 1,25-Dihydroxy 44.7 pg/mL (24.8-81.5)
[2022-10-18 03:07] LABS: Vitamin A, Retinol 48.9 ug/dL (20.1-62.0); Vitamin B1, Thiamine 174.2 nmol/L (66.5-200.0)
== END | disposition home or self-care (01) ==
LOC: BIMLAB 11:41
PROVIDERS: PCP Internal Medicine; Visit Provider Internal Medicine
DX: I10 Essential (primary) hypertension (principal); Z90.3 Acquired absence of stomach [part of]
CPT/HCPCS: 36415; 80053; 80061; 82607; 82652; 82746; 83036; 83540; 83550; 84425; 84590; 85025

== ENCOUNTER → 2022-12-15 | Outpatient (CLI) | payer BC, SELFPAY ==
--- NOTE | 2022-12-15 10:52 | BI_ITS ---
MAMMOGRAPHY - BILATERAL SCREENING REASON FOR EXAM: Female, 57 years old. Routine annual screening examination. PERTINENT HISTORY: Non-contributory. TECHNIQUE: Digital bilateral breast mallorie (3D mammographic acquisition) in the CC and MLO projections. 2-D mediolateral oblique (MLO) and craniocaudad (CC) views of both breasts were obtained. CAD: Full Field Digital Mammography with Computer Added Detection was performed. COMPARISON: Comparison is made with prior study dated July 27, 2020. FINDINGS: Breast Composition: There are scattered areas of fibroglandular density. There are no dominant masses or suspicious calcifications. No other significant abnormalities are identified. There has been no significant change since the prior study. BI/SCRN MAMM (CAD)W/M[place]ORIE BILAT IMPRESSION: Stable bilateral screening mammogram. Yearly follow-up mammogram recommended. (A) ASSESSMENT CATEGORY: BIRADS Category 1: Negative. A letter regarding these results will be sent to the patient by the facility within 30 days. Approximately 10% of breast cancers are not detected by mammography. A normal mammogram should not delay biopsy of a clinically suspicious abnormality. [id number] Electronically Signed: Rajinder Duncan MD at 9:40 EST ,
== END | disposition home or self-care (01) ==
LOC: OPBI 10:51
PROVIDERS: PCP Internal Medicine; Referring Provider Internal Medicine; Visit Provider Internal Medicine
DX: Z12.31 Encounter for screening mammogram for malignant neoplasm of breast (principal)
CPT/HCPCS: 77063; 77067

== ENCOUNTER → 2022-12-25 | Outpatient (CLI) | payer BC, SELFPAY ==
[2022-12-25 13:52] LABS: Amphetamine Urine VISTA NEGATIVE (<1000 ng/mL); Barbiturate Urine VISTA NEGATIVE (< 200 ng/mL); Benzodiazepine Urine VISTA NEGATIVE (< 200 ng/mL); Cocaine Urine VISTA NEGATIVE (< 300 ng/mL); Ecstacy Urine VISTA POSITIVE (< 500 ng/mL); Methadone Urine VISTA NEGATIVE (< 300 ng/mL); PCP Urine VISTA NEGATIVE (< 25 ng/mL); THC Urine VISTA NEGATIVE (< 50 ng/mL); Vista UDS pH Range 6
== END | disposition home or self-care (01) ==
PROVIDERS: PCP Internal Medicine; Referring Provider Anesthesiology Pain Medicine; Visit Provider Anesthesiology Pain Medicine
DX: F11.20 Opioid dependence, uncomplicated (principal)
CPT/HCPCS: 80307

== ENCOUNTER → 2023-03-15 | Outpatient (CLI) | payer BC, SELFPAY ==
[2023-03-21 15:08] LABS: HPV APTIMA, High Risk Negative (Negative)
== END | disposition home or self-care (01) ==
PROVIDERS: PCP Internal Medicine; Referring Provider Advanced Practice Midwife; Visit Provider Advanced Practice Midwife
DX: Z12.4 Encounter for screening for malignant neoplasm of cervix (principal); Z78.0 Asymptomatic menopausal state
CPT/HCPCS: 87624; 88175; G0145

== ENCOUNTER → 2023-11-27 | Outpatient (CLI) | payer BC, SELFPAY ==
--- OUTSIDE RECORDS SUMMARY | 2023-11-27 12:56 | XMS RPT_ITS | CCD ---
Author Organization [facility] Care Team Providers Care Vallez 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 Name Role Phone Vincent Barrera MD Primary Care Provider Chayo Harper MD Unavailable VINCENT BARRERA Primary Care Unavailab VINCENT Thayer Referring Unavailab VINCENT Thayer Primary Care UnavailVincent Cedeno MD Primary Care Provider Chayo Harper MD Unavailable Chayo Harper MD Unavailable VINCENT BARRERA Attending Unavailab VINCENT Thayer Primary Care Unavailab le LORRAINE CERTIFIED TEACHER ASSISTANT, EMILY Attending Unavailable LORRAINE CERTIFIED TEACHER ASSISTANT, EMILY Attending Unavailable LORRAINE CERTIFIED TEACHER ASSISTANT, EMILY Attending Unavailable LORRAINE CERTIFIED TEACHER ASSISTANT, EMILY Attending Unavailable PRISTAS DOCHRISTINA Attending Unavailable LORRAINE CERTIFIED TEACHER ASSISTANT, EMILY Attending Unavailable PRISTAS DODALTONCHRISTINA K Attending Unavailable LORRAINE CERTIFIED TEACHER ASSISTANT, EMILY Attending Unavailable LORRAINE CERTIFIED TEACHER ASSISTANT, EMILY Attending Unavailable Allergies Allergy Classification Reported Allergen(s) Allergy Type Date of Onset Reaction(s) Facility (15 sources) Morphine; Translations: [MORPHINE] Drug Allergy 08-04-2014 Mental Status Change [facility] Work Phone: Medications Current Medications Medication Drug Class(es) Dates Sig (Normalized) Sig (Original) clonazePAM 0.5 mg oral tablet (18 sources) Benzodiazepine Start: 04-10-2022 End: 07-09-2022 take 1 tablet by mouth three times daily as needed for anxiety clonazePAM (KLONOPIN) 0.5 mg tablet Indications: RAJESH (generalized anxiety disorder) Take 1 tablet by mouth three times daily as needed for anxiety for up to 90 days. 90 tablet 2 04/10/2022 07/09/2022 Active Start: 06-14-2020 End: 04-07-2022 take 1 tablet by mouth three times daily as needed for anxiety clonazePAM (KLONOPIN) 0.5 mg tablet Indications: RAJESH (generalized anxiety disorder) TAKE 1 TABLET BY MOUTH THREE TIMES DAILY NEEDED FOR ANXIETY FOR UP TO 60 DAYS. 90 tablet 1 01/25/2022 04/07/2022 Discontinued Comment on above: Take 1 tablet by shyla th three times daily as needed. Take 1 tablet by shyla th three times daily as needed for anxiety for up to 60 days. Take 1 tablet by shyla th three times daily as needed for anxiety for up to 90 days. fluconazole 150 mg oral tablet (1 source) Azole Antifungal Start: 2 End: 2 take 1 tablet by mouth once daily fluconazole (DIFLUCAN) 150 mg tablet Take 1 tablet by mouth once daily for 14 days. 7 tablet 1 09/07/2021 09/21/2021 Active Comment on above: Take 1 tablet by shyla th once daily for 14 days. glimepiride 4 mg oral tablet (14 sources) Sulfonylurea Start: 2 End: 3 take 1 tablet by mouth once daily glimepiride (AMARYL) 4 mg tablet Take 1 tablet by mouth once daily. 90 tablet 3 11/01/2021 11/01/2022 Active Start: 10-20-2021 take 1 tablet by shyla th once daily glimepiride (AMARYL) 2 mg tablet TAKE 1 TABLET BY MOUTH EVERY DAY 90 tablet 3 10/20/2021 Active Start: 04-14-2020 End: 10-20-2021 take 1 tablet by mouth once daily glimepiride (AMARYL) 2 mg tablet Take 1 tablet by mouth once daily. 0 04/14/2020 10/20/2021 Discontinued Comment on above: Take 1 tablet by shyla th once daily. TAKE 1 TABLET BY SHYLA TH EVERY DAY linagliptin 5 mg oral tablet (1 source) Dipeptidyl Peptidase 4 Inhibitor Start: 3 End: 4 take 1 tablet by mouth once daily linaGLIPtin (TRADJENTA) 5 mg tab Take 1 tablet by mouth once daily. 90 tablet 0 05/01/2022 05/01/2023 Active Comment on above: Take 1 tablet by shyla th once daily. nirmatrelvir tablet 300 mg (150 mg x 2) and ritonavir tablet 100 mg in a dose pack (PAXLOVID) (1 source) Start: End: nirmatrelvir tablet 300 mg (150 mg x 2) and ritonavir tablet 100 mg in a dose pack (PAXLOVID) Administer TWO pink nirmatrelvir 150 mg tablets and ONE white ritonavir 100 mg tablet for a total of three tablets twice daily. 30 tablet 0 01/10/2022 01/15/2022 Active Comment on above: Administer TWO pink nirmatrelvir 150 mg tablets and ONE white ritonavir 100 mg tablet for a total of three tablets twice daily. Completed/Discontinued Medications Medication Drug Class(es) Dates Sig (Normalized) Sig (Original) [id number] 200 actuat albuterol 0.09 mg/actuat metered dose inhaler (14 sources) beta2-Adrenergic Agonist Start: 12-26-2021 take 2 puff(s) by inhalation every six hours as needed for wheezing albuterol HFA (PROVENTIL HFA, VENTOLIN HFA) 90 mcg/actuation inhaler INHALE 2 PUFFS INSTRUCTED EVERY 6 HOURS NEEDED FOR WHEEZING/SHORTNES S OF BREATH. 25.5 Each 1 12/26/2021 Active Start: 08-23-2021 take 2 puff(s) by in halation every six hours as needed for wheezing albuterol HFA (PROAIR HFA) 90 mcg/actuation inhaler Inhale 2 Puffs as instructed every 6 hours as needed for wheezing/shortness of breath. 1 Inhaler 3 08/23/2021 Active Start: 08-04-2014 End: 08-23-2021 albuterol HFA (PROAIR HFA) 9 0 mcg/actuation inhaler Inhale 2 Puffs as instructed. 0 08/04/2014 08/23/2021 Discontinued Comment on above: Inhale 2 Puffs as in structed. Inhale 2 Puffs as in structed every 6 hours as needed for wheezing/shortness of breath. Budesonide / formoterol (13 sources) Corticosteroid, beta2-Adrenergic Agonist Start : 08-04 take 2 puff(s) by inhalation twice daily budesonide-formoterol (SYMBICORT) 160-4.5 mcg/actuation inhaler Inhale 2 Puffs as instructed twice daily. 0 08/04/2014 Active Comment on above: Inhale 2 Puffs as in structed twice daily. 24 hr buPROPion hydrochloride 150 mg extended release oral tablet (11 sources) Aminoketone Start : 09-07 End: 03-06 take 1 tablet by mouth once daily buPROPion XL (WELLBUTRIN XL) 150 mg 24 hr tablet Take 1 tablet by mouth once daily. 30 tablet 5 09/07/2021 Active Comment on above: Take 1 tablet by shyla th once daily. citalopram 20 mg oral tablet (3 sources) Serotonin Reuptake Inhibitor Start : 03-16 End: 09-07 take 1 tablet by mouth once daily citalopram (CELEXA) 20 mg tablet Take 1 tablet by mouth once daily. 30 tablet 2 03/16/2015 09/07/2021 Discontinued (Course of therapy completed) Comment on above: Take 1 tablet by shyla th once daily. diclofenac sodium 0.01 mg/mg topical gel (13 sources) Nonsteroidal Anti-inflammatory Drug Start : 05-05 diclofenac (VOLTAREN) 1 % topical gel APPLY TO AFFECTED AREA EVERY DAY [id number] 0 05/05/2020 Active Comment on above: APPLY TO AFFECTED AR EA EVERY DAY [id number] DULoxetine 30 mg delayed release oral capsule (14 sources) Serotonin and Norepinephrine Reuptake Inhibitor Start : 04-23 End: 02-18 take 3 capsules by mouth once daily DULoxetine (CYMBALTA) 30 mg capsule TAKE 3 CAPSULES BY MOUTH ONCE A DAY DIRECTED 270 capsule 3 02/18/2022 Active Comment on above: Take 3 capsules by m outh once daily. TAKE 3 CAPSULES BY M OUTH ONCE A DAY DIRECTED gabapentin 600 mg oral tablet (13 sources) Anti-epileptic Agent Start : 05-31 take 1 tablet by mouth three times daily gabapentin (NEURONTIN) 600 mg tablet Take 1 tablet by mouth three times daily. 0 05/31/2020 Active Comment on above: Take 1 tablet by shyla th three times daily. hydroCHLOROthiazide 25 mg oral tablet (13 sources) Thiazide Diuretic Start : 03-03 take 1 tablet by mouth once daily hydrochlorothiazide (HYDRODIURIL, ESIDRIX) 25 mg tablet Take 1 tablet by mouth once daily. 30 tablet 4 03/03/2015 Active Comment on above: Take 1 tablet by shyla once daily. lisinopril 20 mg oral tablet (13 sources) Angiotensin Converting Enzyme Inhibitor Start : 05-31 take 1 tablet by mouth once daily lisinopril (ZESTRIL, PRINIVIL) 20 mg tablet Take 1 tablet by mouth once daily. 0 05/31/2020 Active Comment on above: Take 1 tablet by shyla once daily. LORazepam 0.5 mg oral tablet (4 sources) Benzodiazepine Start : 03-11 End: 10-17 LORazepam (ATIVAN) 0.5 mg tab Take 1 tablet by mouth as directed. Take one tablet one hour prior to flight. 5 tablet 0 03/11/2015 10/17/2021 Discontinued (Course of therapy completed) Comment on above: Take 1 tablet by shyla as directed. Take one tablet one hour prior to flight. metFORMIN hydrochloride 500 mg oral tablet (13 sources) Biguanide Start : 04-24 take 2 tablets by mouth twice daily metFORMIN (GLUCOPHAGE) 500 mg tablet Indications: Type 2 diabetes mellitus with hyperglycemia (HCC) TAKE 2 TABLETS BY MOUTH TWICE A DAY 360 tablet 3 04/24/2022 Active Start: 05-07-2020 take 2 tablets by [facility] twice daily metFORMIN (GLUCOPHAGE) 500 mg tablet Take 2 tablets by mouth twice daily. 0 05/07/2020 Active Comment on above: Take 2 tablets by [facility] twice daily. TAKE 2 TABLETS BY [facility] TWICE A DAY metoprolol tartrate 50 mg oral tablet (13 sources) beta-Adrenergic Jodi Start: 1 take 1 tablet by mouth twice daily metoprolol tartrate, short acting, (LOPRESSOR) 50 mg tablet Take 1 tablet by mouth twice daily. 180 tablet 3 10/19/2020 Active Comment on above: Take 1 tablet by shyla twice daily. SITagliptin 100 mg oral tablet (8 sources) Dipeptidyl Peptidase 4 Inhibitor Start: 2 End: 3 take 1 tablet by mouth once daily SITagliptin (JANUVIA) 100 mg tablet Take 1 tablet by mouth once daily. 90 tablet 3 11/01/2021 05/01/2022 Discontinued (Cost of medication) Comment on above: Take 1 tablet by shyla th once daily. traMADol hydrochloride 50 mg oral tablet (13 sources) Opioid Agonist Start: 0 take 1 tablet by mouth three times daily traMADol (ULTRAM) 50 mg tablet Take 1 tablet by mouth three times daily. 0 11/16/2019 Active Comment on above: Take 1 tablet by shyla th three times daily. Problems Active Problems Problem Classification Problem Date Documented Da te Episodic/Chronic Anxiety disorders (16 sources) Generalized anxiety disorder; Translations: [Generalized anxiety disorder] Onset: 08-22-2016 Chronic Asthma (15 sources) Moderate persistent asthma; Translations: [Moderate persistent asthma, uncomplicated] Onset: 08-04-2014 08-04-2014 Chronic Cardiac dysrhythmias (14 sources) Persistent atrial fibrillation; Translations: [Other persistent atrial fibrillation] Onset: 10-21-2020 10-21-2020 Chronic Diabetes mellitus with complications (12 sources) Type II diabetes mellitus uncontrolled; Translations: [Uncontrolled type 2 diabetes mellitus] Onset: 04-02-2017 09-07-2021 Chronic Diabetes mellitus without complication (3 sources) Type 2 diabetes mellitus; Translations: [Type 2 diabetes mellitus without complications] Onset: 09-07-2021 Chronic Disorders of lipid metabolism (14 sources) Pure hypercholesterolemi a; Translations: [Pure hypercholesterolemi a, unspecified] Onset: 09-07-2021 Chronic Essential hypertension (16 sources) Hypertensive disorder; Translations: [Essential (primary) hypertension] Onset: 08-04-2014 08-04-2014 Chronic Osteoarthritis (13 sources) Osteoarthritis; Translations: [Unspecified osteoarthritis, unspecified site] Onset: 08-04-2014 08-04-2014 Chronic Other nutritional; endocrine; and metabolic disorders (13 sources) Body mass index 40+ - severely obese; Translations: [Morbid (severe) obesity due to excess calories] Onset: 06-19-2017 06-19-2017 Chronic Other upper respiratory infections (1 source) Upper respiratory infection; Translations: [Acute upper respiratory infection, unspecified] Episodic Unclassified (1 source) Other persistent atrial fibrillation; Translations: [Atrial fibrillation, persistent (HCC)] Onset: 10-21-2020 Viral infection (1 source) Disease caused by 2019-nCoV; Translations: [COVID-19] Episodic Past or Other Problems Problem Classification Problem Date Documented Da te Episodic/Chronic Administrative/social admission (13 sources) Patient encounter status; Translations: [Other specified counseling] Onset: 10-21-2020 10-21-2020 Episodic Mycoses (11 sources) Mycosis; Translations: [Candidiasis, unspecified] Onset: 01-17-2021 09-07-2021 Episodic Other connective tissue disease (14 sources) Fibromyalgia; Translations: [Fibromyalgia] Onset: 08-04-2014 08-04-2014 Episodic Other connective tissue disease (1 source) Fibromyalgia; Translations: [Fibromyalgia] Onset: 08-04-2014 Episodic Results Test Name Value Interpretation Reference Range Facility Phone Msgon 11-02-2023 Phone Msg Entered by EMILY PETERS CNP on November 02, 2023 14:03:16 EDT From: EMILY PETERS CNP To: [facility]/pharmacy #[id number] Sent: 11/02/2023 14:03:16 EDT Subject: Medication Management Submitted: Complete:semaglutide (Ozempic 4 mg/3 mL (1 mg dose) subcutaneous solution) Signed by EMILY PETERS CNP 11/02/2023 14:03:00 EDT Approved semaglutide (OZEMPIC 4 MG/3 ML (1 MG/DOSE)) INJECT 1MG SUBCUTANEOUSLY ON SUNDAY FOR 4 WEEKS Qty: 3 unknown unit Days Supply: 30 Refills: 2 Substitutions Allowed Route To Pharmacy - [facility] #[id number] From: [id number] To: EMILY PETERS CNP Sent: October 31, 2023 12:10:10 PM EDT Subject: Medication Management Due: November 01, 2023 11:35:17 AM EDT On Hold Pending Signature Dispensed Drug: semaglutide (Ozempic 4 mg/3 mL (1 mg dose) subcutaneous solution), INJECT 1MG SUBCUTANEOUSLY ON SUNDAY FOR 4 WEEKS Quantity: 3 unknown unit Days Supply: 30 Refills: 2 Substitutions Allowed Notes from Pharmacy: Normal [facility] AMB Bariatric Physician Prog ress Noteon 09-05-2023 AMB Bariatric Physician Progress Note BREE DALEY :1965 Registration Date:09/05/2023 Chief Complaint NSWL f/u weight gain History of Present Illness Bree is here for 18 month follow-up s/p Sleeve Gastrectomy on 03/06/2022 + NSWL Weight Gain Post-Op. Last seen at her 1 year follow-up at that time she weighed 287 lbs Today she weighs 262 lbs BMI 41.65 Consult: 403 lbs BMI 64 DOS: 367 lbs IBW 195 lbs EWL 61% She is on Ozempic 1mg - tolerating well. Denies Side Effects. 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 Food to spending to smoking - She is smoking 1/2 a pack of cigarettes a day. She is using her CPAP therapy. Exercise: Walking. Gardening. B: Yogurt & Banana or tiny muffin /// currently egg & toast L: Protein Coffee D: Small dish of Rigatoni. Small Salad. Beverages: Water. OARRs reviewed. Physical Exam Vitals & Measurements Systolic Blood Pressure: 146 mmHg High (09/05/23 14:39:00) Diastolic Blood Pressure: 64 mmHg (09/05/23 14:39:00) Peripheral Pulse Rate: 67 bpm (09/05/23 14:39:00) Mean Arterial Pressure: 91 mmHg (09/05/23 14:39:00) BP Site2: Left arm (09/05/23 14:39:00) Height/Length Measured: 169 cm (09/05/23 14:39:00) Weight Measured: 119 kg (09/05/23 14:39:00) Body Mass Index Measured: 41.67 kg/m2 (09/05/23 14:39:00) Weight Measured - lbs2: 262 lb (09/05/23 14:39:00) Height/Length Measured - in2: 66.5 in (09/05/23 14:39:00) Body Mass Index Measured English2: 41.65 kg/m2 (09/05/23 14:39:00) BSA: 2.36 m2 (09/05/23 14:39:00) Ht/Wt Measurement Refused by Patient?2: No (09/05/23 14:39:00) Depression Screening Scores No Depression Screening data available for this encounter. Fall Risk Assessment Is the patient ambulatory (mobile): Yes (09/05/23 14:39:00) Have you had a fall within the past: No (09/05/23 14:39:00) Have you had 2 or more falls in the past: No (09/05/23 14:39:00) General: Well developed, well nourished, in no acute distress. Abdomen: Soft, non-tender, obese Extremities: No calf tenderness. No pretibial edema. Psych: Alert and cooperative; normal mood and affect; normal attention span and concentration. Medication Reconciliation What How Much When Instructions New pantoprazole (pantoprazole 40 mg oral delayed release tablet) 1 Tabs Oral DAILY Duration: 90 Days Refills: 2 Pickup at [facility]/pharmacy #[id number] Unchanged albuterol = Proventil, Ventolin (ProAir HFA 90 mcg/ inh inhalation aerosol) 2 Puffs Inhalation EVERY SIX HOURS as needed for as needed for wheezing Unchanged DULoxetine (DULoxetine 30 mg oral delayed release capsule) 3 Capsules Oral DAILY do not crush or chew Unchanged hydrOXYzine (hydrOXYzine hydrochloride 25 mg oral tablet) 1 Tabs Oral THREE TIMES A DAY as needed for as needed for anxiety Unchanged lisinopril (lisinopril 20 mg oral tablet) 0.5 tab Oral DAILY Unchanged metoprolol (Metoprolol Tartrate 50 mg oral tablet) 1 Tabs Oral TWICE A DAY Unchanged semaglutide (Ozempic 4 mg/ 3 mL (1 mg dose) subcutaneous solution) 1 Milligram Subcutaneous SUNDAY Duration: 4 Weeks Unchanged traMADol (traMADol 50 mg oral tablet) 1 Tabs Oral THREE TIMES A DAY as needed for as needed for pain Pharmacy Information [id number]: [address], [place] [id number] [phone] Assessment/Plan This Visit Diagnosis 1. Morbid obesity E66.01 Continue taking multivitamins daily. Keep a food log for 4 days in a row, once a month, every month. Weigh and measure your food. Daily calorie intake should be around 0283-8379 a day. Keep protein intake between 60-80 grams a day Keep fluids intake atleast 60 ounces a day. Increase exercise. Minimum goal is 150 minutes a week, working towards 300 minutes a week. Follow-Up 2 months Ordered: AMB Office/Outpt Est Pt Mod MDM / 30 min [id number], 09/05/2023 15:48:00 EDT, Morbid obesity / BMI 40.0-44.9, adult / Diabetes / Sleep apnea / History of sleeve gastrectomy AMB Visit complexity: ongoing, serious, complex cond [id number], 09/05/2023 15:48:00 EDT, Morbid obesity / BMI 40.0-44.9, adult / Diabetes / Sleep apnea / History of sleeve gastrectomy 2. BMI 40.0-44.9, adult Z68.41 BMI 41.65 The risks of obesity were discussed with the patient. Individuals with obesity are more likely to develop a number of potentially serious health problems including; heart disease, strokes, high blood pressure, abnormal cholesterol, sleep apnea, or type 2 diabetes. Ordered: AMB Office/Outpt Est Pt Mod MDM / 30 min , 09/05/2023 15:48:00 EDT, Morbid obesity / BMI 40.0-44.9, adult / Diabetes / Sleep apnea / History of sleeve gastrectomy AMB Visit complexity: ongoing, serious, complex cond [id number], 09/05/2023 15:48:00 EDT, Morbid obesity / BMI 40.0-44.9, adult / Diabetes / Sleep apnea / History of sleeve gastrectomy 3. Diabetes E11.9 Continue Ozempic 1mg Risks and benefits of being on GLP-1 Therapy discussed. Potential side effects include nausea, diarrhea, abdominal pain, headache, fatigu (more content not included)... Normal [facility] Comprehensive Intake - Texto n 09-05-2023 Comprehensive Intake - Text Comprehensive Intake Entered On: 09/05/2023 14:40 EDT Performed On: 09/05/2023 14:39 EDT by Sari Payan MA Summary Chief Complaint : NSWL f/u weight gain Advance Directive : No Bladder Control Issues? : No Urine Leakage? : No Presence or absence of urinary incontinence assessed : Yes CPT-II Medication list doc'd in medical record : Yes Influenza immunization administered or previously received : Yes Pneumococcal vaccine administered or previously received : Yes Sari Payan MA - 09/05/2023 14:39 EDT Measurements Ht/Wt Measurement Refused by Patient? : No Weight Measured : 119 kg(Converted to: 262 lb 6 oz, 262.350 lb) Height/Length Measured : 169 cm(Converted to: 5 ft 7 in, 66.54 in) Body Mass Index Measured : 41.67 kg/m2 Body Mass Index documented : Yes Weight Measured - lbs : 262 lb(Converted to: 262 lb 0 oz, 119 kg) Height/Length Measured - in : 66.5 in(Converted to: 5 ft 7 in, 169 cm) Body Mass Index Measured Marshallese : 41.65 kg/m2 BSA Marshallese : 2.36 m2 Sari Payan MA - 09/05/2023 14:39 EDT Vitals Require BP : Yes Systolic Blood Pressure : 146 mmHg (HI) Diastolic Blood Pressure : 64 mmHg Mean Arterial Pressure : 91 mmHg Pulse Rate : 67 bpm BP Site : Left arm Last Systolic BP : greater than or equal to 140 mmHg Last Diastolic BP : less than 80 mmHg Pain Present : No actual or suspected pain Pain : 5 Pain severity quantified : No pain present Sari Payan MA - 09/05/2023 14:39 EDT Infection Screening Travel outside of [place] within past 21 days? : No Positive COVID test in the last 10 days? : No Exposure to and/or close contact with a person who has a laboratory-confirmed COVID test within the last 48 hours. : No Coronavirus New Symptoms w/o Cause : No Sari Payan MA - 09/05/2023 14:39 EDT Depression Screening Is patient currently : Active Diagnosis of Depression Sari Payan MA 09/05/2023 14:39 EDT Falls Risk Assessment Is the patient ambulatory (mobile) : Yes Have you had 2 or more falls in the past year : No Have you had a fall within the past year that has caused an injury : No Patient screen for fall risk : no falls in last year OR 1 fall with no injury in last year aSri Payan MA - 09/05/2023 14:39 EDT Normal [facility] Vitamin B1 Whole Bloodon Vitamin B1 Whole Blood 190 nmol/L High 70-180 [facility] Comment on above: Order Comment: Order ed on Fin# [id number] Result Comment: INTE RPRETIVE INFORMATION: Vitamin B1, Whole Blood This assay measures the concentration of thiamine diphosphate (TDP), the primary active form of vitamin B1. Approximately 90 percent of vitamin B1 present in whole blood is TDP. Thiamine and thiamine monophosphate, which comprise the remaining 10 percent, are not measured. This test was developed and its performance characteristics determined by [facility]. It has not been cleared or approved by the [place] Food and Drug Administration. This test was performed in a CLIA certified laboratory and is intended for clinical purposes. Performed By: [facility] [address] [place] [id number] Weighmaster: Rodger Drake MD, PhD CLIA Number: [id number] Performed By: #### C [id number] #### [facility] [address] [place] [address] Director Of Rehabilitation And Wellness: MD JERAMIE Mai Bariatric Physician Prog ress Noteon 03-07-2023 AMB Bariatric Physician Progress Note BREE DALEY :1965 Registration Date:03/06/2023 Chief Complaint 1 yr post op sleeve gastrectomy History of Present Illness Patient returns for follow up 12 months s/p sleeve gastrectomy, says she is doing well overall and has been following dietary recommendations. Eats a lot of cottage cheese, still trying to focus on lean protein. Has been on ozempic to help with further weight loss. Takes Tums PRN for occasional heartburn. Trying to find treatment for her depression, has started seeing new psychiatrist and therapist and finds this is helping. Physical Exam Vitals & Measurements Systolic Blood Pressure: 140 mmHg (03/06/23 11:02:00) Diastolic Blood Pressure: 79 mmHg (03/06/23 11:02:00) Mean Arterial Pressure: 99 mmHg (03/06/23 11:02:00) BP Site2: Left arm (03/06/23:) Height/Length Measured: 169 cm (03/06/23::00) Weight Measured: 130 kg (03/06/23::) Body Mass Index Measured: 45.52 kg/m2 (03/06/23::) Weight Measured - lbs2: 287 lb (03/06/23::) Height/Length Measured - in2: 66.5 in (03/06/23::) Body Mass Index Measured English2: 45.62 kg/m2 (03/06/23::) BSA: 2.47 m2 (03/06/23::) Ht/Wt Measurement Refused by Patient?2: No (03/06/23:) Depression Screening Scores No Depression Screening data available for this encounter. Fall Risk Assessment Is the patient ambulatory (mobile): Yes (03/06/23::) Have you had a fall within the past: No (03/06/23:) Have you had 2 or more falls in the past: No (03/06/23) General - alert and oriented, no acute distress HEENT - normocephalic, atraumatic, extraocular muscles intact CV - regular rate and rhythm Respiratory - unlabored breathing Abdomen - soft, obese, nontender, nondistended Musculoskeletal - extremities warm and well perfused Neuro - no gross deficits, cranial nerves II-XII grossly intact Psych - alert and cooperative; normal mood and affect; normal attention span and concentration Medication Reconciliation What How Much When Instructions Changed semaglutide (Ozempic 4 mg/ 3 mL (1 mg dose) subcutaneous solution) 1 Milligram Subcutaneous SUNDAY Duration: 4 Weeks Unchanged albuterol = Proventil, Ventolin (ProAir HFA 90 mcg/ inh inhalation aerosol) 2 Puffs Inhalation EVERY SIX HOURS as needed for as needed for wheezing Unchanged budesonide-formoterol (Symbicort 160 mcg-4.5 mcg/ inh inhalation aerosol) 2 Puffs Inhalation TWICE A DAY as needed for wheezing and dyspnea; Unchanged clonazePAM (KlonoPIN 0.5 mg oral tablet) 1 Tabs Oral THREE TIMES A DAY as needed for Anxiety Unchanged DULoxetine (DULoxetine 30 mg oral delayed release capsule) 3 Capsules Oral DAILY do not crush or chew Unchanged gabapentin (gabapentin 600 mg oral tablet) 1 Tabs Oral THREE TIMES A DAY Unchanged hydrochlorothiazide = HydroDIURIL (hydroCHLOROthiazide 25 mg oral tablet) 0.5 Tabs Oral DAILY Unchanged lisinopril (lisinopril 20 mg oral tablet) 0.5 tab Oral DAILY Unchanged metoprolol (Metoprolol Tartrate 50 mg oral tablet) 1 Tabs Oral TWICE A DAY Unchanged ondansetron (ondansetron 4 mg oral tablet, disintegrating = Zofran) 1 Tabs Oral EVERY EIGHT HOURS as needed for Nausea/Vomiting Unchanged oxymetazoline nasal (oxymetazoline 0.05% nasal spray) 2 Sprays Nasal DAILY as needed for as needed for nasal congestion Unchanged pantoprazole (pantoprazole 40 mg oral delayed release tablet) 1 Tabs Oral DAILY Unchanged traMADol (traMADol 50 mg oral tablet) 1 Tabs Oral THREE TIMES A DAY as needed for as needed for pain Assessment/Plan This Visit Diagnosis 1. History of sleeve gastrectomy Z90.3 57F doing well 12 months s/p laparoscopic sleeve gastrectomy, she is at 41.05% excess body weight loss at 287 pounds down from 367 pounds. Encouraged her to continue daily multivitamin, exercise regimen and monitor protein, calorie and fluid intake. She will return for follow up in 3 months or sooner with any concerns. Ordered: AMB Office/Outpt Est Pt Low MDM / 20 min 04333, 03/07/2023 11:56:00 EST, History of sleeve gastrectomy / Sleep apnea / Depression / Anxiety 2. Sleep apnea G47.30 Ordered: AMB Office/Outpt Est Pt Low MDM / 20 min 77869, 03/07/2023 11:56:00 EST, History of sleeve gastrectomy / Sleep apnea / Depression / Anxiety 3. Depression F32.A Ordered: AMB Office/Outpt Est Pt Low MDM / 20 min 07717, 03/07/2023 11:56:00 EST, History of sleeve gastrectomy / Sleep apnea / Depression / Anxiety 4. Anxiety F41.9 Ordered: AMB Office/Outpt Est Pt Low MDM / 20 min 54329, 03/07/2023 11:56:00 EST, History of sleeve gastrectomy / Sleep apnea / Depression / Anxiety Orders: CBCND(CBC WITHOUT DIFFERENTIAL), ROUTINE, 03/06/2023 12:08:00 EST, [id number], Dx: History of sleeve gastrectomy / Sleep apnea COMPMETA(CMP), ROUTINE, 03/06/2023 12:08:00 EST, [id number], Dx: History of sleeve gastrectomy / Sleep apnea FOLATE, ROUTINE, 03/06/2023 12:08 (more content not included)... Normal [facility] Phone Msgon 03-07-2023 Phone Msg - From: ROLAN LIN PA-C Sent: 03/07/2023 12:54:20 EST Subject: Lab Results Caller Name: BREE DALEY; Caller Number: H Left VM. Patient lab results WNL except bilirubin (low). Patient to call back with any questions, otherwise, follow up in 6 months. Patient WBC high - based on trends seems normal for her. BUN also elevated - down from lab work in September 2022. Will continue to follow. Normal [facility] CBCNDon 03-06-2023 Erythrocyte distribution width (RBC) [Ratio] 13.9 % Normal 11.5-14.5 [facility] Comment on above: Performed By: #### 9 201735, 224679, 568394, 471412, 879712, 417536, 865964 #### [facility] [address] [place] [address] Director Of Rehabilitation And Wellness: Aung Alexander MD Hematocrit (Bld) [Volume fraction] 42.4 % Normal 36.0-46.0 [facility] Comment on above: Performed By: #### 9 092809, 949948, 828002, 086107, 360325, 921083, 901247 #### [facility] [address] [place] [address] Director Of Rehabilitation And Wellness: Aung Alexander MD Hemoglobin (Bld) [Mass/Vol] 14.2 g/dL Normal 12.0-16.0 [facility] Comment on above: Performed By: #### 9 146539, 011587, 919149, 190795, 320627, 257926, 338898 #### [facility] [address] [place] [address] Director Of Rehabilitation And Wellness: Aung Alexander MD Instr WBC ND 11.7 Normal [facility] Comment on above: Performed By: #### 9 978692, 221684, 638919, 397895, 548688, 808793, 049122 #### [facility] [address] [place], [place] [address] Director Of Rehabilitation And Wellness: Aung Alexander MD MCH (RBC) [Entitic mass] 30.3 pg Normal 27.0-34.0 [facility] Comment on above: Performed By: #### 9 946403, 614336, 626767, 503300, 965429, 509576, 208780 #### [facility] [address] [place], [place] [address] Director Of Rehabilitation And Wellness: Aung Alexander MD MCHC (RBC) [Mass/Vol] 33.5 g/dL Normal 32.0-37.0 [facility] Comment on above: Performed By: #### 9 663986, 544152, 589332, 970561, 597946, 407564, 650153 #### [facility] [address] [place], [place] [address] Director Of Rehabilitation And Wellness: Aung Alexander MD MCV (RBC) [Entitic vol] 90.3 fL Normal 80.0-100.0 [facility] Comment on above: Performed By: #### 9 128248, 804447, 358336, 029242, 730525, 370657, 873191 #### [facility] [address] [place] [address] Director Of Rehabilitation And Wellness: Aung Alexander MD Platelet 346 x10 Normal 150-450 [facility] Comment on above: Performed By: #### 9 669724, 125107, 522125, 517068, 954168, 995580, 954398 #### [facility] [address] [place] [address] Director Of Rehabilitation And Wellness: Aung Alexander MD Platelet mean volume (Bld) [Entitic vol] 8.8 fL Normal 7.4-10.4 [facility] Comment on above: Performed By: #### 9 211815, 427937, 347969, 420798, 183079, 530476, 211086 #### [facility] [address] [place] [address] Director Of Rehabilitation And Wellness: Aung Alexander MD RBC 4.70 x10 Normal 4.20-5.40 [facility] Comment on above: Result Comment: Note : RBC morphology is normal unless otherwise stated. Evaluation performed only if differential is requested. Performed By: #### 9 695794, 555139, 839429, 057663, 183616, 981092, 034348 #### [facility] [address] [place] [address] Director Of Rehabilitation And Wellness: Aung Alexander MD WBC 11.7 x10 High 4.5-11.0 [facility] Comment on above: Performed By: #### 9 561763, 877173, 778135, 462819, 094429, 018796, 784841 #### [facility] [address] [place] [address] Director Of Rehabilitation And Wellness: Aung Alexander MD COMPMETAon 03-06-2023 Albumin [Mass/Vol] 3.7 g/dL Normal 3.4-5.0 [facility] Comment on above: Order Comment: Order ed on Fin# [id number] Performed By: #### 9 529339, 263846, 941464, 069830, 844824, 163175, 960746 #### [facility] [address] [place] [address] Director Of Rehabilitation And Wellness: Aung Alexander MD Albumin/Globulin [Mass ratio] 1.2 {ratio} Normal [facility] Comment on above: Order Comment: Order ed on Fin# [id number] Performed By: #### 9 461648, 103521, 594313, 534953, 762906, 174243, 242132 #### [facility] [address] [place] [address] [id number] Director Of Rehabilitation And Wellness: Aung Alexander MD Alk Phos 94 unit/L Normal 45-117 [facility] Comment on above: Order Comment: Order ed on Fin# [id number] Performed By: #### 9 096709, 660485, 123103, 494346, 564486, 950597, 641476 #### [facility] [address] [place] [address] Director Of Rehabilitation And Wellness: Aung Alexander MD Bilirubin [Mass/Vol] 0.20 mg/dL Low 0.30-1.20 [facility] Comment on above: Order Comment: Order ed on Fin# [id number] Result Comment: Use of this assay is not recommended for patients undergoing treatment with eltrombopag due to the potential for falsely elevated results. Performed By: #### 9 990723, 245654, 103495, 684087, 423792, 470741, 181627 #### [facility] [address] [place] [address] Director Of Rehabilitation And Wellness: Aung Alexander MD Calcium [Mass/Vol] 9.7 mg/dL Normal 8.7-10.4 [facility] Comment on above: Order Comment: Order ed on Fin# [id number] Performed By: #### 9 799864, 946276, 098723, 308870, 081600, 033809, 679094 #### [facility] [address] [place] [address] Director Of Rehabilitation And Wellness: Aung Alexander MD Chloride [Moles/Vol] 105 mmol/L Normal 98-107 [facility] Comment on above: Order Comment: Order ed on Fin# [id number] Performed By: #### 9 479378, 778077, 738836, 751812, 539363, 753912, 576886 #### [facility] [address] [place] [address] Director Of Rehabilitation And Wellness: Aung Alexander MD CO2 [Moles/Vol] 25.0 mmol/L Normal 20.0-31.0 [facility] Comment on above: Order Comment: Order ed on Fin# [id number] Performed By: #### 9 422069, 442636, 368126, 911160, 505691, 110011, 563155 #### [facility] [address] [place], [place] [address] Director Of Rehabilitation And Wellness: Aung Alexander MD Creatinine [Mass/Vol] 0.8 mg/dL Normal 0.5-0.8 [facility] Comment on above: Order Comment: Order ed on Fin# [id number] Performed By: #### 9 718849, 226301, 062455, 867912, 182890, 923638, 489795 #### [facility] [address] [place], [place] [address] Director Of Rehabilitation And Wellness: Aung Alexander MD GFR AA >60 Normal [facility] Comment on above: Order Comment: Order ed on Fin# [id number] Result Comment: Afri can Dutch GFR Calc Medical judgement is necessary to interpret GFR. The calculated GFR may not accurately reflect renal status in patients >70 years, women, acutely ill hospitalized patients and patients with acute renal failure or known renal disease. The MDRD GFR formula is valid only for adults greater than 18 years of age. Note: Creatinine clearance (not GFR) should be used for drug dosing. Performed By: #### 9 483995, 697516, 109103, 031235, 392752, 816700, 543218 #### [facility] [address] [place] [address] Director Of Rehabilitation And Wellness: Aung Alexander MD Globulin (S) [Mass/Vol] 3.1 g/dL Normal [facility] Comment on above: Order Comment: Order ed on Fin# [id number] Performed By: #### 9 947366, 590411, 452470, 933391, 647540, 014746, 186445 #### [facility] [address] [place] [address] Director Of Rehabilitation And Wellness: Aung Alexander MD Glomerular Filtration Rate >60 Normal [facility] Comment on above: Order Comment: Order ed on Fin# [id number] Result Comment: Non- GFR Calc Medical judgement is necessary to interpret GFR. The calculated GFR may not accurately reflect renal status in patients >70 years, women, acutely ill hospitalized patients and patients with acute renal failure or known renal disease. The MDRD GFR formula is valid only for adults greater than 18 years of age. Note: Creatinine clearance (not GFR) should be used for drug dosing. Performed By: #### 9 846883, 004212, 972093, 116779, 573240, 059737, 775636 #### [facility] [address] [place] [address] Director Of Rehabilitation And Wellness: Aung Alexander MD Glucose [Mass/Vol] 92 mg/dL Normal 74-106 [facility] Comment on above: Order Comment: Order ed on Fin# [id number] Performed By: #### 9 898874, 891944, 308045, 961153, 751535, 150289, 912250 #### [facility] [address] [place] [address] Director Of Rehabilitation And Wellness: Aung Alexander MD GOT 19 unit/L Normal 15-37 [facility] Comment on above: Order Comment: Order ed on Fin# [id number] Performed By: #### 9 307672, 307455, 901903, 123687, 266078, 131243, 600546 #### [facility] [address] [place] [address] Director Of Rehabilitation And Wellness: Aung Alexander MD GPT 19 unit/L Normal 10-49 [facility] Comment on above: Order Comment: Order ed on Fin# [id number] Performed By: #### 9 233567, 086766, 353731, 059314, 032198, 643773, 197773 #### [facility] [address] [place] [address] Director Of Rehabilitation And Wellness: Aung Alexander MD Osmolality [Osmolality] 280 mosm/kg Normal 275-295 [facility] Comment on above: Order Comment: Order ed on Fin# [id number] Performed By: #### 9 647203, 607807, 047513, 869444, 560471, 386446, 165383 #### [facility] [address] [place] [address] Director Of Rehabilitation And Wellness: Aung Alexander MD Potassium [Moles/Vol] 4.6 mmol/L Normal 3.5-5.1 [facility] Comment on above: Order Comment: Order ed on Fin# [id number] Performed By: #### 9 502028, 607413, 661038, 172412, 187436, 166109, 154982 #### [facility] [address] [place] [address] Director Of Rehabilitation And Wellness: Aung Alexander MD Protein [Mass/Vol] 6.8 g/dL Normal 5.7-8.2 [facility] Comment on above: Order Comment: Order ed on Fin# [id number] Result Comment: Tota l Protein results may be increased in patients receiving dextran as a blood volume therapy tech Performed By: #### 9 337931, 385540, 847572, 003899, 731903, 473060, 642939 #### [facility] [address] [place] [address] Director Of Rehabilitation And Wellness: Aung Alexander MD Sodium [Moles/Vol] 138 mmol/L Normal 135-145 [facility] Comment on above: Order Comment: Order ed on Fin# [id number] Performed By: #### 9 594633, 403932, 586464, 369882, 656344, 475136, 583455 #### [facility] [address] [place] [address] [id number] Director Of Rehabilitation And Wellness: Aung Alexander MD Urea nitrogen [Mass/Vol] 25 mg/dL High 9- [facility] Comment on above: Order Comment: Order ed on Fin# [id number] Result Comment: - Ve nipuncture should occur prior to N-Acetyl Cysteine (NAC) or Metamizole (Sulpyrine) administration due to the potential for falsely depressed results. - Blood samples from some patients with monoclonal gammopathies may produce falsely elevated results Performed By: #### 9 788366, 753230, 385044, 225927, 833381, 642735, 497056 #### [facility] [address] [place] [address] [id number] Director Of Rehabilitation And Wellness: Aung Alexander MD Urea nitrogen/Creatinin e [Mass ratio] 31.2 mg/mg Normal [facility] Comment on above: Order Comment: Order ed on Fin# [id number] Performed By: #### 9 858042, 834183, 368628, 545637, 715010, 058649, 720063 #### [facility] [address] [place] [id number] Director Of Rehabilitation And Wellness: Aung Alexander MD Comprehensive Intake - Baria tric - Texton 03-06-2023 Comprehensive Intake - Bariatric - Text Comprehensive Intake - Bariatric Entered On: 03/06/2023 11:05 EST Performed On: 03/06/2023 11:02 EST by Sari Payan MA Summary Chief Complaint : 1 yr post op Advance Directive : No Bladder Control Issues? : No Urine Leakage? : No Presence or absence of urinary incontinence assessed : Yes CPT-II Medication list doc'd in medical record : Yes Influenza immunization administered or previously received : Yes Pneumococcal vaccine administered or previously received : No Sari Payan MA - 03/06/2023 11:02 EST Measurements - Bariatrics Ht/Wt Measurement Refused by Patient? : No Weight Measured : 130 kg(Converted to: 286 lb 10 oz, 286.601 lb) Height/Length Measured : 169 cm(Converted to: 5 ft 7 in, 66.54 in) Body Mass Index Measured : 45.52 kg/m2 Body Mass Index documented : Yes Weight Measured - lbs : 287 lb(Converted to: 287 lb 0 oz, 130 kg) Height/Length Measured - in : 66.5 in(Converted to: 5 ft 7 in, 169 cm) Body Mass Index Measured Marshallese : 45.62 kg/m2 BSA Marshallese : 2.47 m2 [place] Body Weight : 60.531 kg Sari Payan MA - 03/06/2023 11:02 EST Vitals Require BP : Yes Systolic Blood Pressure : 140 mmHg Diastolic Blood Pressure : 79 mmHg Mean Arterial Pressure : 99 mmHg BP Site : Left arm Last Systolic BP : greater than or equal to 140 mmHg Last Diastolic BP : less than 80 mmHg Pain Present : No actual or suspected pain Pain : 5 Pain severity quantified : No pain present Sari Payan MA - 03/06/2023 11:02 EST Infection Screening Travel outside [place] within past 30 days : No Positive COVID test in the last 10 days? : No Coronavirus Live/Work High Risk : No Exposure to and/or close contact with a person who has a laboratory-confirmed COVID test within the last 48 hours. : No Sari Payan MA - 03/06/2023 11:02 EST Depression Screening Is patient currently : Active Diagnosis of Depression Sari Payan MA - 03/06/2023 11:02 EST Falls Risk Assessment Is the patient ambulatory (mobile) : Yes Have you had 2 or more falls in the past year : No Have you had a fall within the past year that has caused an injury : No Patient screen for fall risk : no falls in last year OR 1 fall with no injury in last year Sari Payan MA - 03/06/2023 11:02 EST Normal [facility] FOLATEon 03-06-2023 FOLATE 15.2 ng/mL Normal 5.4-17.5 [facility] Comment on above: Order Comment: Order ed on Fin# [id number] Result Comment: Meth otrexate and leucovorin interfere with folate measurement because these drugs cross-react with folate binding proteins. Performed By: #### 9 127512, 926334, 089307, 223462, 370114, 421299, 602102 #### [facility] [address] [place] [address] Director Of Rehabilitation And Wellness: Aung Alexander MD IRON GROUPon 03-06-2023 Iron [Mass/Vol] 92 ug/dL Normal 50-170 [facility] Comment on above: Order Comment: Order ed on Fin# [id number] Result Comment: Resu lts may be inaccurate if performed within 14 days of IV iron dextran administration. Performed By: #### 9 245125, 079328, 479483, 414779, 242164, 599519, 048773 #### [facility] [address] [place] [address] Director Of Rehabilitation And Wellness: Aung Alexander MD Saturation 29.8 % Normal 20.0-50.0 [facility] Comment on above: Order Comment: Order ed on Fin# [id number] Performed By: #### 9 319278, 174311, 196222, 725679, 084506, 673662, 941142 #### [facility] [address] [place] [address] Director Of Rehabilitation And Wellness: Aung Alexander MD TIBC 309 ug/ml Normal 250-425 [facility] Comment on above: Order Comment: Order ed on Fin# [id number] Result Comment: Resu lts may be inaccurate if performed within 14 days of IV iron dextran administration. Performed By: #### 9 234665, 841954, 548734, 154656, 586463, 340682, 338366 #### [facility] [address] [place] [address] Director Of Rehabilitation And Wellness: Aung Alexander MD TSHon 03-06-2023 TSH Qn 1.73 m[IU]/L Normal 0.55-4.78 [facility] Comment on above: Order Comment: Order ed on Fin# [id number] Result Comment: - Do not use samples that contain fluorescein. Fluorescein levels > 0.24 ?g/mL may decrease results in this assay - Patients undergoing retinal fluorescein angiography can retain amounts of fluorescein in the body for up to 48?72 hours post-treatment. Such samples can produce falsely depressed values when tested with this assay, and should not be tested Reference Intervals (if applicable): First trimester: 0.6-3.4 uIU/mL Second trimester: 0.37-3.6 uIU/mL Third trimester: 0.38-4.04 uIU/mL Reference: [email or web address] (11/2022) Performed By: #### 9 039326, 756182, 145606, 000428, 430909, 329252, 298947 #### [facility] [address] [place] [address] Director Of Rehabilitation And Wellness: Aung Alexander MD VIT B12 LEVELon 03-06-2023 Cobalamin (Vitamin B12) [Mass/Vol] 694 pg/mL Normal 211-911 [facility] Comment on above: Order Comment: Order ed on Fin# [id number] Performed By: #### 9 386273, 491605, 571147, 215379, 138707, 731941, 529213 #### [facility] [address] [place] [address] Director Of Rehabilitation And Wellness: Aung Alexander MD VIT D 25 LEVELon 03-06-2023 Vit D 25 34 ng/mL Normal [facility] Comment on above: Order Comment: Order ed on Fin# [id number] Result Comment: Less than 20 ng/mL Deficient 20 ? 30 ng/mL Insufficient 30 ? 100 ng/mL Sufficiency Greater than 100 ng/mL Potential Toxicity Performed By: #### 9 635858, 427363, 559782, 098948, 966515, 133573, 509944 #### [facility] [address] [place] [address] Director Of Rehabilitation And Wellness: MD Santiago Mai 05-01-2022 JASMINE Telephone ([place]) -------- BREE DALEY ([id number]) 1965 F Date Time Provider Department 05/01/22 VINCENT BARRERA During your visit today, we recorded the following information about you: Sabrina Benitez LPN 05/01/2022 11:46 AM Signed LAST OFFICE VISIT: 09/07/21 No upcoming office visit scheduled at this time. Januvia is not covered by patient's insurance. Pharmacy requesting Tradjenta as alternative. Current Medication: Januvia 100 mg daily. Alternative is Tradjenta 5 mg. Do you want to prescribe Tradjenta? I'm not sure of the dose and frequency if you approve. Sabrina Benitez LPN May 01, 2022 11:43 AM Vincent Barrera MD 05/01/2022 3:21 PM Signed Patient is overdue for follow-up. Schedule appointment please. Medicine changed to Tradjenta. Sabrina Benitez LPN 05/02/2022 1:59 PM Signed Attempted to contact patient regarding her medication. No answer. Message left for patient to call office at her convenience. *Message is: Januvia is not covered by her insurance, so Dr. Barrera ordered Tradjenta which is a covered formulary alternative. Also that she is over due for a follow-up and needs to schedule. Sabrina Benitez LPN May 02, 2022 1:59 PM Sabrina Benitez LPN 05/03/2022 5:40 PM Signed Patient notified that Januvia is not covered by her insurance, so Dr. Barrera called Debra in for her, and that she is overdue for an appointment. She asked if the office could call her tomorrow to schedule. She stated a good time to call will be 9am-10am. Patient also stated that she has stopped most of her medication since her surgery. No other questions or concerns voiced. She thanked me for the call. Call ended. Patient's information given to Judi to call her tomorrow to schedule an office visit. Sabrina Benitez LPN May 03, 2022 5:40 PM Allergies As of Date: 05/01/2022 Noted Allergy Reaction MORPHINE 08/04/2014 1 - Mental Status Change Comments: Mood changes Date Reviewed: 01/10/2022 Reviewed by: Kita Urena - Fully Assessed Reason for Visit: Orders [681] Order(s):linaGLIPtin (TRADJENTA) 5 mg tabTake 1 tablet by mouth once daily.Disp: 90 tabletRfl: 0 Prescriptions as of 05/03/2022 - linaGLIPtin (TRADJENTA) 5 mg tab Take 1 tablet by mouth once daily. - metFORMIN (GLUCOPHAGE) 500 mg tablet TAKE 2 TABLETS BY MOUTH TWICE A DAY - clonazePAM (KLONOPIN) 0.5 mg tablet Take 1 tablet by mouth three times daily as needed for anxiety for up to 90 days. - DULoxetine (CYMBALTA) 30 mg capsule TAKE 3 CAPSULES BY MOUTH ONCE A DAY DIRECTED - albuterol HFA (PROVENTIL HFA, VENTOLIN HFA) 90 mcg/actuation inhaler INHALE 2 PUFFS INSTRUCTED EVERY 6 HOURS NEEDED FOR WHEEZING/SHORTNESS OF BREATH. - TRUE METRIX GLUCOSE TEST STRIP test strip USE 1 STRIP DIRECTED ONCE A DAY - glimepiride (AMARYL) 4 mg tablet Take 1 tablet by mouth once daily. - buPROPion XL (WELLBUTRIN XL) 150 mg 24 hr tablet Take 1 tablet by mouth once daily. - metoprolol tartrate, short acting, (LOPRESSOR) 50 mg tablet Take 1 tablet by mouth twice daily. - traMADol (ULTRAM) 50 mg tablet Take 1 tablet by mouth three times daily. - gabapentin (NEURONTIN) 600 mg tablet Take 1 tablet by mouth three times daily. - diclofenac (VOLTAREN) 1 % topical gel APPLY TO AFFECTED AREA EVERY DAY [id number] - lisinopril (ZESTRIL, PRINIVIL) 20 mg tablet Take 1 tablet by mouth once daily. - hydrochlorothiazide (HYDRODIURIL, ESIDRIX) 25 mg tablet Take 1 tablet by mouth once daily. - budesonide-formoterol (SYMBICORT) 160-4.5 mcg/actuation inhaler Inhale 2 Puffs as instructed twice daily. Problem List As Of Date 05/01/2022 Noted Resolved Moderate persistent asthma [J45.40] 08/04/2014 Hypertension [I10] 08/04/2014 Osteoarthritis [M19.90] 08/04/2014 Fibromyalgia [M79.7] 08/04/2014 Obesity, Class III, BMI 40-49.9 (morbid obesity*06/19/2017 Atrial fibrillation, persistent (HCC) [I48.19] 10/21/2020 Encounter for anticoagulation discussion and co*10/21/2020 Anxiety [F41.9] 08/22/2016 Hyperlipidemia [E78.5] 09/07/2021 Infection due to yeast [B37.9] 01/17/2021 Uncontrolled type 2 diabetes mellitus [PRE3793] 04/02/2017 Prescriptions ordered this encounter Disp Refills Start End TRADJENTA 5 MG TABLET 90 t* 0 05/01/2022 05/01/2023 Route: ORAL Sig: Take 1 tablet by mouth once daily. Medications Discontinued During This Encounter Prescriptions - SITagliptin (JANUVIA) 100 mg tablet (Discontinued) Take 1 tablet by mouth once daily. Encounter Status:Closed by VINCENT BARRERA on 05/01/22 [facility] 01-10-2022 [facility] Office Visit ([facility] ) -------- THUYBREE ([id number]) 1965 F Date Time Provider Department 01/10/22 10:45 AM JASMIN SANTOYO [facility] During your visit today, we recorded the following information about you: Temperature Pulse Respiration Blood pressure 97.9 degrees 106/minute 18/minute 122/80 Weight 173.7 kg Jasmin Santoyo APRN.CERTIFIED TEACHER ASSISTANT 01/10/2022 10:48 AM Signed Subjective The history is provided by the patient. No high school foreign language teacher was used. CORNELIO Bree Daley is a 56 year old female who presents today for CC of positive home covid. She is ahving cough, runny nose and sore throat and phlegm, requesting antibiotic. Patient has h/o obesity, htn, T2D, chronic lung disease. Discuss candidate for paxlovid would like prescription BP 122/80 Pulse 106 Temp 36.6 ?C (97.9 ?F) Resp 18 Wt (!) 173.7 kg (383 lb) LMP 06/05/2014 SpO2 98% BMI 61.82 kg/m? Social History Tobacco Use Smoking status: Former Types: Cigarettes Start date: 02/05/2014 Smokeless tobacco: Never Vaping Use Vaping Use: Former Substance Use Topics Alcohol use: No Drug use: No PAST MEDICAL HISTORY Diagnosis Date Anxiety Asthma since childhood Depression Diabetes mellitus (HCC) Fibromyalgia Hypertension Mixed hyperlipidemia Obesity TAMMI (obstructive sleep apnea) Osteoarthritis Polycystic ovarian disease SVT (supraventricular tachycardia) (HCC) I have confirmed and edited as necessary, the [facility] Review of Systems Constitutional: Positive for malaise/fatigue. Negative for chills and fever. HENT: Positive for congestion, sinus pain and sore throat. Negative for ear pain. Respiratory: Positive for cough. Negative for sputum production, shortness of breath and wheezing. Cardiovascular: Negative for chest pain. Musculoskeletal: Negative for myalgias. Neurological: Negative for headaches. Objective Physical Exam Vitals and nursing note reviewed. HENT: Head: Normocephalic and atraumatic. Right Ear: Tympanic membrane, ear canal and external ear normal. Left Ear: Tympanic membrane, ear canal and external ear normal. Nose: Mucosal edema, congestion and rhinorrhea present. Right Sinus: No maxillary sinus tenderness or frontal sinus tenderness. Left Sinus: No maxillary sinus tenderness or frontal sinus tenderness. Mouth/Throat: Pharynx: Uvula midline. Posterior oropharyngeal erythema present. No oropharyngeal exudate. Cardiovascular: Rate and Rhythm: Normal rate and regular rhythm. Heart sounds: Normal heart sounds. Pulmonary: Effort: Pulmonary effort is normal. Breath sounds: Normal breath sounds. Lymphadenopathy: Head: Right side of head: No submental, submandibular or tonsillar adenopathy. Left side of head: No submental, submandibular or tonsillar adenopathy. Cervical: No cervical adenopathy. Skin: General: Skin is warm and dry. Neurological: Mental Status: She is alert. Psychiatric: Mood and Affect: Affect normal. Nirmatrelvir/Ritonavir (Paxlovid) Eligibility and Patient Discussion [facility] Formulary Restriction Criteria: Adult outpatients 18 years and older with ALL of the following: [x] Patient has positive SARS-COV-2 viral test (PCR or antigen test) during current illness [x] Patient has symptoms for 5 days or less [x] Not requiring hospitalization at any time for management of COVID-19 [x] Not requiring supplemental oxygen or a change in baseline supplemental oxygen [x] Not utilized for pre-exposure or post-exposure prophylaxis for prevention of COVID-19 [x] Patient does not have severe renal impairment (eGFR < 30 mL/min) or severe hepatic impairment (Child-Saunders Class C) [x] Meeting at least one of the criteria for high risk of progression to severe COVID-19: [] Age over 65 years [] Cancer [] Chronic kidney disease [] Chronic liver disease [x] Chronic lung diseases, including cystic fibrosis [] Dementia or other neurological conditions [x] Diabetes (type 1 or type 2) [] Disabilities, including Down syndrome and neurodevelopmental disorders [x] Heart conditions [] HIV infection [] Immunocompromised state [] Mental health conditions [] Medical related technological dependence (tracheostomy, gastrostomy, or positive pressure ventilation (not related to COVID) [x] Overweight and obesity (BMI greater or equal to 25 for adults) [] Physical inactivity [] [] Sickle cell disease or thalassemia [] Smoking, current or former [] Solid organ or blood stem cell transplant [] Stroke or cerebrovascular disease [] Substance use disorders [] Tuberculosis [] People from racial and ethnic minority groups Criteria above are met: Yes Date of Positive Test:01.09.2022 Date of Symptom Onset: 01.07.2022 Patient received COVID vaccine: No Drug-Drug interactions reviewed: Yes. No drug interactions were identified. I have (more content not included)... Normal [facility] [place] 11-01-2021 HIRAN Telephone (Mass[place]) -------- BREE DALEY ([id number]) 1965 F Date Time Provider Department 9/27/22 VINCENT BARRERA During your visit today, we recorded the following information about you: Isabel Jara LPN 11/01/2021 9:45 AM Signed This nurse phoned patient, unable to leave message in inbox due to full inbox Isabel Jara LPN November 01, 2021 9:45 AM Isabel Jara LPN 11/02/2021 10:52 AM Signed Patient notified of information and new orders Isabel Jara LPN November 02, 2021 10:52 AM Allergies As of Date: 11/01/2021 Noted Allergy Reaction MORPHINE 08/04/2014 1 - Mental Status Change Comments: Mood changes Date Reviewed: 09/07/2021 Reviewed by: Sadia Odell LPN - Fully Assessed Reason for Visit: Results [95] Cmt: A1c is 8.5 Order(s):glimepiride (AMARYL) 4 mg tabletTake 1 tablet by mouth once daily.Disp: 90 tabletRfl: 3 SITagliptin (JANUVIA) 100 mg tabletTake 1 tablet by mouth once daily.Disp: 90 tabletRfl: 3 Prescriptions as of 11/02/2021 - glimepiride (AMARYL) 4 mg tablet Take 1 tablet by mouth once daily. - SITagliptin (JANUVIA) 100 mg tablet Take 1 tablet by mouth once daily. - clonazePAM (KLONOPIN) 0.5 mg tablet Take 1 tablet by mouth three times daily as needed for anxiety for up to 60 days. - buPROPion XL (WELLBUTRIN XL) 150 mg 24 hr tablet Take 1 tablet by mouth once daily. - albuterol HFA (PROAIR HFA) 90 mcg/actuation inhaler Inhale 2 Puffs as instructed every 6 hours as needed for wheezing/shortness of breath. - metoprolol tartrate, short acting, (LOPRESSOR) 50 mg tablet Take 1 tablet by mouth twice daily. - traMADol (ULTRAM) 50 mg tablet Take 1 tablet by mouth three times daily. - gabapentin (NEURONTIN) 600 mg tablet Take 1 tablet by mouth three times daily. - TRUE METRIX GLUCOSE TEST STRIP test strip USE DAILY AND NEEDED - diclofenac (VOLTAREN) 1 % topical gel APPLY TO AFFECTED AREA EVERY DAY [id number] - DULoxetine (CYMBALTA) 30 mg capsule Take 3 capsules by mouth once daily. - lisinopril (ZESTRIL, PRINIVIL) 20 mg tablet Take 1 tablet by mouth once daily. - metFORMIN (GLUCOPHAGE) 500 mg tablet Take 2 tablets by mouth twice daily. - hydrochlorothiazide (HYDRODIURIL, ESIDRIX) 25 mg tablet Take 1 tablet by mouth once daily. - budesonide-formoterol (SYMBICORT) 160-4.5 mcg/actuation inhaler Inhale 2 Puffs as instructed twice daily. Problem List As Of Date 11/01/2021 Noted Resolved Moderate persistent asthma [J45.40] 08/04/2014 Hypertension [I10] 08/04/2014 Osteoarthritis [M19.90] 08/04/2014 Fibromyalgia [M79.7] 08/04/2014 Obesity, Class III, BMI 40-49.9 (morbid obesity*06/19/2017 Atrial fibrillation, persistent (HCC) [I48.19] 10/21/2020 Encounter for anticoagulation discussion and co*10/21/2020 Anxiety [F41.9] 08/22/2016 Hyperlipidemia [E78.5] 09/07/2021 Infection due to yeast [B37.9] 01/17/2021 Uncontrolled type 2 diabetes mellitus [[id number]] 04/02/2017 Prescriptions ordered this encounter Disp Refills Start End GLIMEPIRIDE 4 MG TABLET 90 t* 3 11/01/2021 11/01/2022 Route: ORAL Sig: Take 1 tablet by mouth once daily. SITAGLIPTIN 100 MG TABLET 90 t* 3 11/01/2021 11/01/2022 Route: ORAL Sig: Take 1 tablet by mouth once daily. Medications Discontinued During This Encounter Prescriptions - glimepiride (AMARYL) 2 mg tablet (Discontinued) TAKE 1 TABLET BY MOUTH EVERY DAY Encounter Status:Closed by ISABEL JARA on 11/02/21 [facility] Comprehensive metabolic 2000 panelon 10-31-2021 Albumin [Mass/Vol] 4.1 g/dL Normal 3.9-4.9 [facility] Comment on above: Order Comment: Speci men Type: BLOOD SPECIMEN Ordering Facility: [facility] Address: [address] [place] [address] [place] [address] Performed By: #### 2 4323-8 #### [facility] [place] CLIA [id number] [address] [place] [address] [place] ALP [Catalytic activity/Vol] 113 U/L Normal 34-123 [facility] Comment on above: Order Comment: Speci men Type: BLOOD SPECIMEN Ordering Facility: [facility] [place] Address: [address] [place] [address] Performed By: #### 2 4323-8 #### [facility] CLIA [id number] [address] [place] [address] [place] ALT [Catalytic activity/Vol] 32 U/L Normal 7-38 [facility] Comment on above: Order Comment: Speci men Type: BLOOD SPECIMEN Ordering Facility: [facility] [place] Address: [address] [place] [address] Performed By: #### 2 4323-8 #### [facility] CLIA [id number] [address] [place] [address] [place] Anion gap [Moles/Vol] 12 mmol/L Normal 9-18 [facility] Comment on above: Order Comment: Speci men Type: BLOOD SPECIMEN Ordering Facility: [facility] [place] Address: [address] [place] [address] Performed By: #### 2 4323-8 #### [facility] CLIA [id number] [address] [place] [address] [place] AST [Catalytic activity/Vol] 22 U/L Normal 13-35 [facility] Comment on above: Order Comment: Speci men Type: BLOOD SPECIMEN Ordering Facility: [facility] [place] Address: [address] [place], [place] [address] Performed By: #### 2 4323-8 #### [facility] CLIA [id number] [address] [place] [address] [place] Bilirubin [Mass/Vol] 0.2 mg/dL Normal 0.2-1.3 [facility] Comment on above: Order Comment: Speci men Type: BLOOD SPECIMEN Ordering Facility: [facility] [place] Address: [facility] [address] Performed By: #### 2 4323-8 #### [facility] CLIA [id number] [address] [place] [address] [place] Calcium [Mass/Vol] 9.6 mg/dL Normal 8.5-10.2 [facility] Comment on above: Order Comment: Speci men Type: BLOOD SPECIMEN Ordering Facility: [facility] [place] Address: [address] [place], [place] [address] Performed By: #### 2 4323-8 #### [facility] CLIA [id number] [address] [place] [address] [place] Chloride [Moles/Vol] 97 mmol/L Normal 97-105 [facility] Comment on above: Order Comment: Speci men Type: BLOOD SPECIMEN Ordering Facility: [facility] [place] Address: [address] [place], [place] [address] Performed By: #### 2 4323-8 #### [facility] CLIA [id number] [address] [place] [address] [place] CO2 [Moles/Vol] 23 mmol/L Normal 22-30 [facility] Comment on above: Order Comment: Speci men Type: BLOOD SPECIMEN Ordering Facility: [facility] [place] Address: [address] Performed By: #### 2 4323-8 #### [facility] CLIA [id number] [address] [place] [address] [place] Creatinine [Mass/Vol] 0.73 mg/dL Normal 0.58-0.96 [facility] Comment on above: Order Comment: Speci men Type: BLOOD SPECIMEN Ordering Facility: [facility] [place] Address: [address] Performed By: #### 2 4323-8 #### [facility] [id number] [address] [place] [address] [place] ESTIMATED GLOMERULAR FILTRATION RATE 97 mL/min/1.73m??? Normal >=60 [facility] Comment on above: Order Comment: Ponce armendariz Type: BLOOD SPECIMEN Ordering Facility: [facility] [place] Address: [address] [place] [address] Result Comment: Rosetta mated Glomerular Filtration Rate (eGFR) is calculated using the 2020 CKD-EPI creatinine equation. This equation utilizes serum creatinine, sex, and age as parameters. The creatinine assay has traceable calibration to isotope dilution-mass spectrometry. Refer to KDIGO guidelines for clinical interpretation. In patients with unstable renal function, e.g. those with acute kidney injury, the eGFR may not accurately reflect actual GFR. Performed By: #### 2 4323-8 #### [facility] [id number] [address] [place] [address] [place] Glucose [Mass/Vol] 250 mg/dL High 74-99 [facility] Comment on above: Order Comment: Ponce armendariz Type: BLOOD SPECIMEN Ordering Facility: [facility] [place] Address: [address] [place] [address] Result Comment: The [place] Diabetes Association (ADA) provides guidance for cutoff values for fasting glucose and random glucose. The ADA defines fasting as no caloric intake for at least 8 hours. Fasting plasma glucose results between 100 to 125 mg/dL indicate increased risk for diabetes (prediabetes). Fasting plasma glucose results greater than or equal to 126 mg/dL meet the criteria for diagnosis of diabetes. In the absence of unequivocal hyperglycemia, results should be confirmed by repeat testing. In a patient with classic symptoms of hyperglycemia or hyperglycemic crisis, random plasma glucose results greater than or equal to 200 mg/dL meet the criteria for diagnosis of diabetes. Reference: Standards of Medical Care in Diabetes 2016, [place] Diabetes Association. Diabetes Care. 2016.39(Suppl 1). Performed By: #### 2 4323-8 #### [facility] CLIA [id number] [address] [place] [address] [place] Potassium [Moles/Vol] 4.3 mmol/L Normal 3.7-5.1 [facility] Comment on above: Order Comment: Speci men Type: BLOOD SPECIMEN Ordering Facility: [facility] [place] Address: [address] [place] [address] Performed By: #### 2 4323-8 #### [facility] CLIA [id number] [address] [place] [address] [place] Protein [Mass/Vol] 6.8 g/dL Normal 6.3-8.0 [facility] Comment on above: Order Comment: Speci men Type: BLOOD SPECIMEN Ordering Facility: [facility] [place] Address: [address] [place] [address] Performed By: #### 2 4323-8 #### [facility] [id number] [address] [place] [address] [place] Sodium [Moles/Vol] 132 mmol/L Low 136-144 [facility] Comment on above: Order Comment: Speci men Type: BLOOD SPECIMEN Ordering Facility: [facility] [place] Address: [address] [place] [address] Performed By: #### 2 4323-8 #### [facility] [id number] [address] [place] [address] [place] Urea nitrogen [Mass/Vol] 25 mg/dL High 7-21 [facility] Comment on above: Order Comment: Speci men Type: BLOOD SPECIMEN Ordering Facility: [facility] [place] Address: [address] [place] [address] Performed By: #### 2 4323-8 #### [facility] CLIA [id number] [address] [place] [address] [place] HbA1c (Bld)on 10-31-2021 Average glucose Estimated from glycated hemoglobin (Bld) [Mass/Vol] 197 mg/dL Normal [facility] Comment on above: Order Comment: Ponce armendariz Type: BLOOD SPECIMEN Ordering Facility: [facility] [place] Address: [address] [place] [address] Result Comment: eAG: (Estimated average glucose) is a calculated value from HgbA1c and is representative government relations of the average blood glucose level in the last 2-3 month period. Performed By: #### 5 5454-3 #### [facility] CLIA [id number] [address] [place] [address] [place] HbA1c (Bld) [Mass fraction] 8.5 % High 4.3-5.6 [facility] Comment on above: Order Comment: Ponce armendariz Type: BLOOD SPECIMEN Ordering Facility: [facility] [place] Address: [address] [place] [address] Result Comment: Amer [place] Diabetes Association guidelines indicate that patients with HgbA1c in the range 5.7-6.4% are at increased risk for development of diabetes, and intervention by lifestyle modification may be beneficial. HgbA1c greater or equal to 6.5% is considered diagnostic of diabetes. Performed By: #### 5 5454-3 #### [facility] CLIA [id number] [address] [place] [address] [place] Lipid 1996 panelon 2 Cholesterol [Mass/Vol] 231 mg/dL High <200 [facility] Comment on above: Order Comment: Ponce armendariz Type: BLOOD SPECIMEN Ordering Facility: [facility] [place] Address: [address] [place] [address] Result Comment: <200 mg/dL, Desirable 200-239 mg/dL, Borderline high >239 mg/dL, High Performed By: #### 2 4331-1 #### [facility] CLIA [id number] [address] [place] [address] [place] [facility] CLIA [id number] [address] [place] [address] [place] Cholesterol in HDL [Mass/Vol] 45 mg/dL Normal >39 [facility] Comment on above: Order Comment: Ponce armendariz Type: BLOOD SPECIMEN Ordering Facility: [facility] [place] Address: [address] [place] [address] Result Comment: 40-5 9 mg/dL, Acceptable >59 mg/dL, High: Negative risk factor for coronary heart disease <40 mg/dL, Low: Positive risk factor for coronary heart disease Performed By: #### 2 4331-1 #### [facility] CLIA [id number] [address] [place] [address] CLIA [id number] [address] [place] [address] [place] Cholesterol in LDL [Mass/Vol] 130 mg/dL High <100 [facility] Comment on above: Order Comment: Ponce armendariz Type: BLOOD SPECIMEN Ordering Facility: [facility] [place] Address: [address] [place], [place] [address] Result Comment: <100 mg/dL, Optimal 100-129 mg/dL, Near optimal/above optimal 130-159 mg/dL, Borderline high 160-189 mg/dL, High >189 mg/dL, Very high Secondary prevention optimal LDL Cholesterol levels are recommended to be < 70 mg/dL Performed By: #### 2 4331-1 #### [facility] CLIA [id number] [address] [place] [address] CLIA [id number] [address] [place] [address] [place] Cholesterol in LDL/Cholesterol in HDL [Mass ratio] 2.89 {ratio} High <2.54 [facility] Comment on above: Order Comment: Ponce armendariz Type: BLOOD SPECIMEN Ordering Facility: [facility] [place] Address: [address] [place] [address] Result Comment: Reflaith adamsce: 1. National Cholesterol Education Program ATP III Guideline At-A-Glance Quick Desk Reference: National Heart, Lung, and Blood [place]. National Institutes of Health. 2001: NIH Publication No. 01-3305. 2. An International Atherosclerosis Society position paper: global recommendations for the management of dyslipidemia: executive summary, Atherosclerosis. 2014: 232(2):410-413. Performed By: #### 2 4331-1 #### [facility] CLIA [id number] [address] [place] [address] CLIA [id number] [address] [place] [address] [place] Cholesterol in VLDL [Mass/Vol] 56 mg/dL High <30 [facility] Comment on above: Order Comment: Ponce armendariz Type: BLOOD SPECIMEN Ordering Facility: [facility] [place] Address: [address] [place] [address] Performed By: #### 2 4331-1 #### [facility] CLIA [id number] [address] [place] [address] CLIA [id number] [address] [place] [address] [place] Cholesterol non HDL [Mass/Vol] 186 mg/dL High <130 [facility] Comment on above: Order Comment: Ponce armendariz Type: BLOOD SPECIMEN Ordering Facility: [facility] [place] Address: [address] [place] [address] Result Comment: <130 mg/dL, Optimal 130-159 mg/dL, Near optimal/above optimal 160-189 mg/dL, Borderline high 190-219 mg/dL, High >219 mg/dL, Very high Secondary prevention optimal non HDL Cholesterol levels are recommended to be <100 mg/dL Performed By: #### 2 4331-1 #### [facility] CLIA [id number] [address] [place] [address] [place] [facility] CLIA [id number] [address] [place] [address] [place] Cholesterol.total/ Cholesterol in HDL [Mass ratio] 5.13 {ratio} High <5.10 [facility] Comment on above: Order Comment: Speci men Type: BLOOD SPECIMEN Ordering Facility: [facility] [place] Address: [address] [place], [place] [address] Performed By: #### 2 4331-1 #### [facility] CLIA [id number] [address] [place] [address] OF [facility] CLIA [id number] [address] [place] [address] [place] FASTING TIME 12 hrs Normal [facility] Comment on above: Order Comment: Speci men Type: BLOOD SPECIMEN Ordering Facility: [facility] [place] Address: [address] [place] [address] Performed By: #### 2 4331-1 #### [facility] CLIA [id number] [address] [place] [address] STATES OF [facility] CLIA [id number] [address] [place] [address] [place] Triglyceride [Mass/Vol] 278 mg/dL High <150 [facility] Comment on above: Order Comment: Speci men Type: BLOOD SPECIMEN Ordering Facility: [facility] [place] Address: [address] [place] [address] Result Comment: <150 mg/dL, Normal 150-199 mg/dL, Borderline high 200-499 mg/dL, High >499 mg/dL, Very high Performed By: #### 2 4331-1 #### [facility] CLIA [id number] [address] [place], [place] [address]IA [id number] [address] [place] [address] [place] CNOVon 09-07-2021 CNOV Office Visit ([facility] ) -------- BREE DALEY ([id number]) 1965 F Date Time Provider Department 09/07/21 4:50 PM VINCENT BARRERA During your visit today, we recorded the following information about you: Temperature Pulse Respiration Blood pressure 96.8 degrees 80/minute 16/minute 130/90 Weight Height 176.4 kg 1.676 m Vincent Barrera MD 09/07/2021 5:05 PM Signed This note was created using [employer]. Subjective Bree Daley is a 55 year old female. HPI Review of Systems Objective BP 130/90 (BP Site: Left Arm, BP Cuff Size: Large Adult) Pulse 80 Temp 36 ?C (96.8 ?F) (Temporal) Resp 16 Ht 167.6 cm (5' 6 ) Wt (!) 176.4 kg (389 lb) LMP 06/05/2014 SpO2 96% BMI 62.79 kg/m? Physical Exam Assessment and Plan Vincent Barrera MD 09/07/2021 5:05 PM Signed This note was created using [email or web address]. Subjective Bree Daley is a 55 year old female who presents today for follow-up for multiple medical problems. See list. Her chronic medical problems been stable in terms of her blood pressure and cholesterol. She is having increased depressed mood. She is currently on Cymbalta 90 mg daily. Additionally her sugars have been higher. Her weight loss surgery has been postponed due to elevated A1c.. She is also complaining of a yeast infection under her breast. This has been a recurrent issue. Review of Systems Constitutional: Negative. HENT: Negative. Eyes: Negative. Respiratory: Negative. Cardiovascular: Negative. Gastrointestinal: Negative. Endocrine: Negative. Genitourinary: Negative. Musculoskeletal: Negative. Skin: Negative. Allergic/Immunologic: Negative. Neurological: Negative. Hematological: Negative. Psychiatric/Behavioral: Negative. Objective BP 130/90 (BP Site: Left Arm, BP Cuff Size: Large Adult) Pulse 80 Temp 36 ?C (96.8 ?F) (Temporal) Resp 16 Ht 167.6 cm (5' 6 ) Wt (!) 176.4 kg (389 lb) LMP 06/05/2014 SpO2 96% BMI 62.79 kg/m? Physical Exam Vitals reviewed. Constitutional: Appearance: Normal appearance. She is obese. HENT: Head: Normocephalic and atraumatic. Nose: Nose normal. Eyes: Extraocular Movements: Extraocular movements intact. Pupils: Pupils are equal, round, and reactive to light. Cardiovascular: Rate and Rhythm: Normal rate and regular rhythm. Pulmonary: Effort: Pulmonary effort is normal. Breath sounds: Normal breath sounds. Abdominal: General: Bowel sounds are normal. Palpations: Abdomen is soft. Musculoskeletal: General: Normal range of motion. Cervical back: Normal range of motion and neck supple. Skin: General: Skin is warm and dry. Capillary Refill: Capillary refill takes less than 2 seconds. Neurological: General: No focal deficit present. Mental Status: She is alert and oriented to person, place, and time. Mental status is at baseline. Psychiatric: Mood and Affect: Mood normal. Behavior: Behavior normal. Assessment and Plan Bree was seen today for follow up. Diagnoses and all orders for this visit: Primary hypertension - COMP METABOLIC PANEL; Future Atrial fibrillation, persistent (HCC) Fibromyalgia Moderate persistent asthma without complication Pure hypercholesterolemia - COMP METABOLIC PANEL; Future - LIPID PANEL BASIC; Future 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) (HCC) - HGB A1C; Future - COMP METABOLIC PANEL; Future Other orders - fluconazole (DIFLUCAN) 150 mg tablet; Take 1 tablet by mouth once daily for 14 days. - buPROPion XL (WELLBUTRIN XL) 150 mg 24 hr tablet; Take 1 tablet by mouth once daily. Treat yeast infection with Diflucan. Check A1c. Adjust diabetes medicines as necessary. Add Wellbutrin to Cymbalta. Follow-up in 1 month. Referring Provider: SELF [200] Allergies As of Date: 09/07/2021 Noted Allergy Reaction MORPHINE 08/04/2014 1 - Mental Status Change Comments: Mood changes Date Reviewed: 09/07/2021 Reviewed by: Sadia Odell LPN - Fully Assessed Reason for Visit: Follow Up [171] Cmt: DM f/u depression Primary Visit Diagnosis:Primary hypertension [I10] Other Visit Diagnoses:Atrial fibrillation, persistent (HCC) [I48.19] Fibromyalgia [M79.7] Moderate persistent asthma without complication [J45.40] Pure hypercholesterolemia [E78.00] 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) (HCC) [E11.9] Order(s):HGB A1C [WVZPW3S] Order #: [id number] FUTURE COMP METABOLIC PANEL [SQCMP] Order #: [id number] FUTURE LIPID PANEL BASIC [SQLIPB] Order #: [id number] FUTURE fluconazole (DIFLUCAN) 150 mg tabletTake 1 tablet by mouth once daily for 14 days.Disp: 7 tabletRfl: 1 buPROPion XL (WELLBUTRIN XL) 150 mg 24 hr tabletTake 1 tablet by mouth once daily.Disp: 30 tabletRfl: 5 Prescriptions as of 09/07/2021 - fluconazole (DIFLUCAN) 150 mg tablet Take 1 tablet by mouth once daily for 14 da (more content not included)... Normal [facility] DIGITAL MAMMO SCREENINGon DIGITAL MAMMO SCREENING BILATERAL DIGITAL SCREENING MAMMOGRAM WITH CAD: 07/27/2020 Ordering Physician: Vincent Barrera M.D. CLINICAL: Screening. Comparison is made to exams dated: 08/29/2017 mammogram - [facility] [place] and 05/18/2009 mammogram - [facility]. There are scattered fibroglandular elements [...] abnormality must be based upon clinical grounds. Gaviota Wilson M.D. ear/penrad:07/27/2020 14:56:57 Patient Relations Manager: Lona SIMMONS(Cornel)(M), [facility] letter sent: Mammography Normal BI-RADS: 1 Negative Reported By: GAVIOTA WILSON M.D. Signed By: GAVIOTA WILSON M.D. [facility] ENDOSCOPY DC INSTRUCTIONSon 07-19-2020 ENDOSCOPY DC INSTRUCTIONS Discharge Instructions Patient: Bree Daley Patient : 1965 Procedure: Upper GI endoscopy Procedure Date: Sunday, July 19, 2020 Endoscopist: Rachael Quinones You had a Upper GI endoscopy today. Dr. Quinones found the following: - Z-line regular, 40 cm from the incisors. - Erythematous mucosa in the antrum. Biopsied. - Normal examined duodenum. -No abnormal antomy/ulcer upto D2 Dr. Quinones recommends: We are waiting for your pathology results. You are being discharged to home. Continue your present medications. Return to your referring physician as previously scheduled. Do not drive, operate machinery, make critical decisions, or do activities that require coordination or balance for 24 hours. Contact the GI lab at for any questions regarding your procedure. Go directly to the emergency room if you notice any of the following: Chills and fever over 101 Persistent vomiting or vomiting with blood Severe abdominal pain, other than gas cramps Severe chest pain Black, tarry stools Any bleeding - exceeding one tablespoon If you have any questions on the above instructions, please call your physician at . Rachael Quinones, 07/19/2020 12:12:39 PM Normal [facility] ENDOSCOPY REPORTon ENDOSCOPY REPORT [facility] Endoscopy Patient Name: Bree Daley Procedure Date: 07/19/2020 10:56 AM Date of : 1965 Gender: Female Note Status: Finalized Providers: Rachael Quinones (Doctor) Referring MD: Christina Forrester DO, Christine M. Miceli-Hahn Exam Type: Upper GI endoscopy Indications: Preoperative assessment for bariatric surgery to treat morbid obesity, Gastro-esophageal reflux disease. No previous EGD. Impression: - Z-line regular, 40 cm from the incisors. - Erythematous mucosa in the antrum. Biopsied. - Normal examined duodenum. -No abnormal antomy/ulcer upto D2 Medications: Midazolam 6 mg IV, Fentanyl 100 micrograms IV, Lidocaine viscous Complications: No immediate complications. Comorbidities DM. H Pylori Ab positive , started treatment by Referring provider. Procedure: Pre-Anesthesia Assessment: - The risks and benefits of the procedure and the sedation options and risks were discussed with the patient. All questions were answered and informed consent was obtained. - Patient identification and proposed procedure were verified prior to the procedure by the physician and the nurse. The procedure was verified in the endoscopy suite. - CV Examination: normal. - Mental Status Examination: alert and oriented. - Respiratory Examination: clear to auscultation. - ASA Grade Assessment: II - A patient with mild systemic disease. After obtaining informed consent, the endoscope was passed under direct vision. Throughout the procedure, the patient's blood pressure, pulse, and oxygen saturations were monitored continuously. The Endoscope was introduced through the mouth, and advanced to the second part of duodenum. The upper GI endoscopy was accomplished without difficulty. The patient tolerated the procedure well. Findings: The Z-line was regular and was found 40 cm from the incisors. Localized mildly erythematous mucosa without bleeding was found in the gastric antrum. Biopsies were taken with a cold forceps for Helicobacter pylori testing although specificity is decreased due to PPI. The examined duodenum was normal. No abnormal antomy/ulcer upto D2 Recommendation: - Await pathology results. - Discharge patient to home. - Continue present medications. - Return to referring physician as previously scheduled. -Please check Stool H Pylori Ag after completion of treatment with off PPI for 2 wks, can be ordered by Bariatric office. Rachael Quinones, 07/19/2020 12:12:39 PM Signed Date: 07/19/2020 10:56 AM Scope Withdrawal Time Total Procedure Duration Time Scope In: Scope Out: Review Medical Record Forms for possible GI photos Normal [facility] GLUCOSE METERon 07-19-2020 Glucose [Mass/Vol] 141 mg/dL High 70-99 [facility] Comment on above: Result Comment: Fast ing GLUCOSE reference range has been updated per (ADA) [place] Diabetes Association's recommendation. 04/30/2018 Performed By: #### L 600.13773, L600.36772 #### Test performed at: [place] [address] SURGon 07-19-2020 SURG Normal [facility] Comment on above: Result Comment: RUN DATE: 07/20/20 [facility] LAB *LIVE* PAGE 1RUN TIME: 1538 Specimen InquiryRUN USER: [employer] Name: BREE DALEY : 65 Sex:F Attend Dr: Rachael Quinones [facility]#: [id number] Unit#: [id number] Status: REG CLI Location: G.END Received: 07/19/20 Status: MANUEL Pettit#: [id number]#: [id number] Collected: 07/19/20-[address] [facility] [address]: Rachael Quinones MDTISSUES: Abdi FARMER ANTRUM + BODY MICROSCOPIC EXAM: One H&E-stained slide and one Giemsa-stained slide are examined. DIAGNOSIS: ANTRUM AND BODY OF STOMACH, ENDOSCOPIC BIOPSY: - MODERATE REACTIVE GASTRITIS/GASTROPATHY - NO H. PYLORI ORGANISMS ARE IDENTIFIED ON SPECIAL STAIN Signed Signature on File JOY XIONG 07/20/[address] [facility] Name: [facility] Hosp Num: [id number] A Ministry of Age / Sex: 54/F [facility] Physician: [place] [address] [place] [id number] Location: ENDOSCOPY END OF REPORT Performed By: #### P SURG ####Test performed at: [place] [address] H PYLORI ABon 07-04-2020 H PYLORI AB 5.31 Critically abnormal 0.00-0.79 [facility] Comment on above: Result Comment: INFC E Result Units: Index Value Negative <0.80 Equivocal 0.80 - 0.89 Positive >0.89 Performed At: [facility] [address] [id number] Haylee Juárez PhD [id number] Performed By: #### L 750.25193 #### Test performed at: [facility] [id number] [address] [place] [id number] GLYCO HEMOon 07-03-2020 HbA1c (Bld) [Mass fraction] 6.9 % Normal [facility] Comment on above: Result Comment: Lamont novoa Diagnosis HbA1c (%) --------- Diabetic > 6.4 Prediabetes 5.7-6.4 Normal < 5.7 Performed By: #### L 500.14450 #### Test performed at: [place] [address] VIT D 25-OHon 07-03-2020 VIT D 25-OH 11.36 ng/mL Low 30-100 [facility] Comment on above: Result Comment: ADUL TS: Vitamin D Status Range ----- Deficiency <20 ng/mL Insufficiency 20-<30 ng/mL Sufficiency 30-100 ng/mL Toxicity >100 ng/mL ~\R\~\R\~\R\~\R\~\R\~\R\~\R\~\R\~\R\~\R\~\R\~\R\~\R\~\R\~\R\~\R\~ PEDIATRICS: Vitamin D Status Range ----- Deficiency <15 ng/mL Insufficiency 15-<20 ng/mL Sufficiency 20-100 ng/mL Toxicity >100 ng/mL Certified procedure of the [facility] Vitamin D Standardization Certification Program (VDSCP) Performed By: #### L 600.42509, L600.17327 #### Test performed at: [address] [address] B12on 07-02-2020 Cobalamin (Vitamin B12) [Mass/Vol] 366 pg/mL Normal 193-986 [facility] Comment on above: Order Comment: Is pa tient fasting? UNKNOWN Performed By: #### L 600.04399, L600.22043 #### Test performed at: [address] [address] CBC W/DIFFon 07-02-2020 BASO ABS 0.1 K/uL Normal 0.0-0.2 [facility] Comment on above: Performed By: #### L 600.91252, L600.54978 #### Test performed at: [address] [address] Basophils/100 WBC (Bld) 1.5 % Normal [facility] Comment on above: Performed By: #### L 600.27273, L600.29690 #### Test performed at: [address] [address] EOS ABS 0.5 K/uL Normal 0.0-0.5 [facility] Comment on above: Performed By: #### L 600.00845, L600.46352 #### Test performed at: [address] [address] Eosinophils/100 WBC (Bld) 5.4 % Normal [facility] Comment on above: Performed By: #### L 600.67429, L600.85111 #### Test performed at: [address] [address] Erythrocyte distribution width (RBC) [Ratio] 14.2 % Normal 11.5-14.5 [facility] Comment on above: Performed By: #### L 600.00699, L600.95313 #### Test performed at: [address] [address] Hematocrit (Bld) [Volume fraction] 40.5 % Normal 36.0-48.0 [facility] Comment on above: Performed By: #### L 600.12085, L600.98031 #### Test performed at: [address] [address] Hemoglobin (Bld) [Mass/Vol] 13.3 g/dL Normal 12.0-15.0 [facility] Comment on above: Performed By: #### L 600.41396, L600.79568 #### Test performed at: [place] [address] IG % 0.4 % Normal [facility] Comment on above: Performed By: #### L 600.23800, L600.15901 #### Test performed at: [address] [address] IG ABS 0.04 K/uL Normal 0-0.05 [facility] Comment on above: Performed By: #### L 600.77332, L600.05034 #### Test performed at: [address] [address] Lymphocytes (Bld) [#/Vol] 2.4 10*3/uL Normal 1.2-3.5 [facility] Comment on above: Performed By: #### L 600.97244, L600.24466 #### Test performed at: [address] [address] Lymphocytes/100 WBC (Bld) 25.6 % Normal [facility] Comment on above: Performed By: #### L 600.64973, L600.89177 #### Test performed at: [address] [address] MCH (RBC) [Entitic mass] 29.1 pg Normal 25.4-34.6 [facility] Comment on above: Performed By: #### L 600.05681, L600.20982 #### Test performed at: [address] [address] MCHC (RBC) [Mass/Vol] 32.8 g/dL Normal 31.5-36.5 [facility] Comment on above: Performed By: #### L 600.50200, L600.01825 #### Test performed at: [address] [address] MCV (RBC) [Entitic vol] 88.6 fL Normal 79.0-98.0 [facility] Comment on above: Performed By: #### L 600.61133, L600.00206 #### Test performed at: [address] [address] MONO ABS 0.7 K/uL Normal 0.0-1.0 [facility] Comment on above: Performed By: #### L 600.27670, L600.15483 #### Test performed at: [address] [address] Monocytes/100 WBC (Bld) 7.3 % Normal [facility] Comment on above: Performed By: #### L 600.96502, L600.44489 #### Test performed at: [address] [address] NEUTROPHIL ABS 5.6 K/uL Normal 1.4-6.6 [facility] Comment on above: Performed By: #### L 600.30940, L600.06514 #### Test performed at: [address] [address] Neutrophils/100 WBC (Bld) 59.8 % Normal [facility] Comment on above: Performed By: #### L 600.56842, L600.57222 #### Test performed at: [address] [address] NRBC # 0.000 K/uL Normal 0-0.012 [facility] Comment on above: Performed By: #### L 600.31361, L600.65682 #### Test performed at: [address] [address] NRBC % 0.0 /100 WBC Normal 0-0.2 [facility] Comment on above: Performed By: #### L 600.78740, L600.31006 #### Test performed at: [address] [address] Platelet mean volume (Bld) [Entitic vol] 10.7 fL Normal 8.7-12.4 [facility] Comment on above: Performed By: #### L 600.55120, L600.04179 #### Test performed at: [address] [address] Platelets (Bld) [#/Vol] 321 10*3/uL Normal 140-440 [facility] Comment on above: Result Comment: Slide checked for clumps and fibrin. Performed By: #### L 600.75512, L600.23168 #### Test performed at: [address] [address] RBC (Bld) [#/Vol] 4.57 10*6/uL Normal 3.5-5.5 [facility] Comment on above: Performed By: #### L 600.04210, L600.73678 #### Test performed at: [address] [address] WBC (Bld) [#/Vol] 9.4 10*3/uL Normal 3.9-11.0 [facility] Comment on above: Performed By: #### L 600.71742, L600.97319 #### Test performed at: [address] [address] COMP META PANELon 07-02-2020 Albumin [Mass/Vol] 3.7 g/dL Normal 3.4-5.0 [facility] Comment on above: Order Comment: Is pa tient fasting? UNKNOWN Performed By: #### L 500.18530, L500.63366, L500.36788, L500.70696, L500.04882, L500.72704 #### Test performed at: [address] [address] ALK PHOS TOTAL 88 U/L Normal 45-117 [facility] Comment on above: Order Comment: Is pa tient fasting? UNKNOWN Performed By: #### L 500.53868, L500.05878, L500.70902, L500.68058, L500.06438, L500.41302 #### Test performed at: [address] [address] ALT [Catalytic activity/Vol] 48 U/L Normal 13-61 [facility] Comment on above: Order Comment: Is pa tient fasting? UNKNOWN Performed By: #### L 500.88263, L500.54360, L500.31149, L500.78564, L500.87148, L500.86622 #### Test performed at: [address] [address] AST [Catalytic activity/Vol] 28 U/L Normal 15-37 [facility] Comment on above: Order Comment: Is pa tient fasting? UNKNOWN Performed By: #### L 500.81131, L500.55523, L500.39925, L500.19467, L500.23728, L500.13149 #### Test performed at: [place] [address] [address] [place] [address] BILI TOTAL 0.3 mg/dL Normal 0.2-1.0 [facility] Comment on above: Order Comment: Is pa tient fasting? UNKNOWN Performed By: #### L 500.80145, L500.46305, L500.57597, L500.72386, L500.88500, L500.39441 #### Test performed at: [address] [address] Calcium [Mass/Vol] 9.3 mg/dL Normal 8.5-10.1 [facility] Comment on above: Order Comment: Is pa tient fasting? UNKNOWN Performed By: #### L 500.33582, L500.11242, L500.18873, L500.61160, L500.84776, L500.31259 #### Test performed at: [address] [address] Chloride [Moles/Vol] 101 mmol/L Normal 98-107 [facility] Comment on above: Order Comment: Is pa tient fasting? UNKNOWN Performed By: #### L 500.31446, L500.20902, L500.18750, L500.97906, L500.33762, L500.17828 #### Test performed at: [address] [address] CO2 [Moles/Vol] 24 mmol/L Normal 21-32 [facility] Comment on above: Order Comment: Is pa tient fasting? UNKNOWN Performed By: #### L 500.65078, L500.13000, L500.02704, L500.44568, L500.76338, L500.11995 #### Test performed at: [address] [address] Creatinine [Mass/Vol] 0.843 mg/dL Normal 0.550-1.020 [facility] Comment on above: Order Comment: Is pa tient fasting? UNKNOWN Performed By: #### L 500.58286, L500.22520, L500.00764, L500.41708, L500.46371, L500.78090 #### Test performed at: [address] [address] Glucose [Mass/Vol] 118 mg/dL High 70-99 [facility] Comment on above: Order Comment: Is pa tient fasting? UNKNOWN Result Comment: Fast ing GLUCOSE reference range has been updated per (ADA) [place] Diabetes Association's recommendation. 04/30/2018 Performed By: #### L 500.71266, L500.17610, L500.92531, L500.66434, L500.30610, L500.99397 #### Test performed at: [address] [address] Potassium [Moles/Vol] 4.1 mmol/L Normal 3.5-5.1 [facility] Comment on above: Order Comment: Is pa tient fasting? UNKNOWN Performed By: #### L 500.47684, L500.93948, L500.40568, L500.10006, L500.49524, L500.23998 #### Test performed at: [address] [address] Protein [Mass/Vol] 7.2 g/dL Normal 6.4-8.2 [facility] Comment on above: Order Comment: Is pa tient fasting? UNKNOWN Performed By: #### L 500.83618, L500.94140, L500.78958, L500.45634, L500.52426, L500.92174 #### Test performed at: [address] [address] Sodium [Moles/Vol] 134 mmol/L Low 136-145 [facility] Comment on above: Order Comment: Is pa tient fasting? UNKNOWN Performed By: #### L 500.03441, L500.03566, L500.47452, L500.11168, L500.32111, L500.03878 #### Test performed at: [place] [address] Urea nitrogen [Mass/Vol] 15 mg/dL Normal 7-18 [facility] Comment on above: Order Comment: Is pa tient fasting? UNKNOWN Performed By: #### L 500.44576, L500.99050, L500.14778, L500.55280, L500.68619, L500.58710 #### Test performed at: [place] [address] GFR ESTIMATEon 07-02-2020 IF AMER > 60 Normal > 60 [facility] Comment on above: Order Comment: Is pa tient fasting? UNKNOWN Result Comment: eGFR (Estimated GFR) Units of measure:mL/min/1.73 meters sq. *CALCULATION REVISED 11/24/2014;IDMS-traceable MDRD equation eGFR is derived from the reexpressed MDRD Study equation using the following parameters: serum creatinine, age, gender and race. An eGFR<60 mL/min/1.73m2 for >3 months is consistent with chronic kidney disease. Refer to KDOQI guidelines for clinical interpretation. Performed By: #### L 500.75086, L500.45321, L500.41563, L500.78174, L500.56519, L500.34958 #### Test performed at: [address] [address] IF non-AFR AMER > 60 Normal > 60 [facility] Comment on above: Order Comment: Is pa tient fasting? UNKNOWN Performed By: #### L 500.45017, L500.49856, L500.19713, L500.98623, L500.77474, L500.13716 #### Test performed at: [place] [address] IRON PROF W/FERon 07-02-2020 FERR 26.4 ng/mL Normal 8-252 [facility] Comment on above: Order Comment: Is pa tient fasting? UNKNOWN Performed By: #### L 600.33881, L600.63121 #### Test performed at: [place] [address] Iron [Mass/Vol] 82 ug/dL Normal 50-170 [facility] Comment on above: Order Comment: Is pa tient fasting? UNKNOWN Performed By: #### L 600.44663, L600.00040 #### Test performed at: [place] [address] IRON SAT 20 % Low 25-35 [facility] Comment on above: Order Comment: Is pa tient fasting? UNKNOWN Performed By: #### L 600.40132, L600.62646 #### Test performed at: [place] [address] TIBC 404 ug/dL Normal 250-450 [facility] Comment on above: Order Comment: Is pa tient fasting? UNKNOWN Performed By: #### L 600.50992, L600.51750 #### Test performed at: [place] [address] LIMIT UR TOXon 07-02-2020 UR AMPH Negative Normal Negative [facility] Comment on above: Result Comment: CUTO RS=7562 Performed By: #### L 600.12092, L600.03037 #### Test performed at: [place] [address] UR SANDI Negative Normal Negative [facility] Comment on above: Result Comment: CUTO UT=587 Performed By: #### L 600.76612, L600.96307 #### Test performed at: [place] [address] UR TOSHA Negative Normal Negative [facility] Comment on above: Result Comment: CUTO LH=115 Performed By: #### L 600.98378, L600.40337 #### Test performed at: [place] [address] [place], [place] [id number] UR BUPREN/NORBU Negative Normal Negative [facility] Comment on above: Result Comment: CUTO FF=10 Performed By: #### L 600.07164, L600.33066 #### Test performed at: [place] [address] UR ZIYAD/THC Negative Normal Negative [facility] Comment on above: Result Comment: CUTO FF=50 Performed By: #### L 600.16346, L600.85283 #### Test performed at: [place] [address] UR DAVID Negative Normal Negative [facility] Comment on above: Result Comment: CUTO OT=024 Performed By: #### L 600.56629, L600.61893 #### Test performed at: [place] [id number] UR ECSTASY Negative Normal Negative [facility] Comment on above: Result Comment: CUTO PA=894 Performed By: #### L 600.22445, L600.18742 #### Test performed at: [place] [id number] UR FENTANYL Negative Normal Negative [facility] Comment on above: Result Comment: CUTO PG=5267 Performed By: #### L 600.25839, L600.46592 #### Test performed at: [place] [id number] UR METH Negative Normal Negative [facility] Comment on above: Result Comment: CUTO JQ=810 Performed By: #### L 600.71380, L600.95677 #### Test performed at: [place] [id number] UR OPIAT Negative Normal Negative [facility] Comment on above: Result Comment: CUTO BL=206 Performed By: #### L 600.13952, L600.68533 #### Test performed at: [place] [address] UR OXYCODONE Negative Normal Negative [facility] Comment on above: Result Comment: CUTO VJ=759 Performed By: #### L 600.85260, L600.81972 #### Test performed at: [place] [id number] UR PCP Negative Normal Negative [facility] Comment on above: Result Comment: CUTO FF=25 Performed By: #### L 600.11628, L600.42996 #### Test performed at: [place] [address] PH TOX 6.0 Normal 5.0-8.0 [facility] Comment on above: Performed By: #### L 600.91063, L600.24209 #### Test performed at: [place] [address] TOX COMMENT *PLEASE NOTE: Normal [facility] Comment on above: Result Comment: UNCO NFIRMED Toxicology results. For MEDICAL purposes only. Performed By: #### L 600.61132, L600.37321 #### Test performed at: [place] [id number] LIPID PROFILEon 07-02-2020 Cholesterol [Mass/Vol] 232 mg/dL High <200 [facility] Comment on above: Order Comment: Is pa tient fasting? UNKNOWN Result Comment: <200 mg/dL (Desirable) 200-240 mg/dL (Borderline) >240 mg/dL (High Risk) Performed By: #### L 500.47491, L500.59691, L500.87361, L500.40162, L500.13359, L500.29342 #### Test performed at: [facility] [address] [place], [place] [address] Cholesterol in HDL [Mass/Vol] 40 mg/dL Normal 40-60 [facility] Comment on above: Order Comment: Is pa tient fasting? UNKNOWN Performed By: #### L 500.29689, L500.53952, L500.71202, L500.32533, L500.27335, L500.26800 #### Test performed at: [facility] [address] [place], [place] [address] Cholesterol in LDL [Mass/Vol] 148 mg/dL High 60-130 [facility] Comment on above: Order Comment: Is pa tient fasting? UNKNOWN Result Comment: LDL BORDERLINE NORMAL 130-159 mg/dL Performed By: #### L 500.77429, L500.33679, L500.66594, L500.14023, L500.14276, L500.85974 #### Test performed at: [place] [address], [place] [address] Triglyceride [Mass/Vol] 274 mg/dL High <150 [facility] Comment on above: Order Comment: Is pa tient fasting? UNKNOWN Result Comment: <150 mg/dL (Normal) 150-199 mg/dL (Borderline) 200-499 mg/dL (High) >500 mg/dL (Very High) Performed By: #### L 500.98791, L500.85489, L500.32751, L500.17740, L500.00860, L500.74962 #### Test performed at: [place] [address], [place] [address] TSH ULTRA SENSon 07-02-2020 TSH ULTRA SENS 1.780 uIU/mL Normal 0.358-3.74 [facility] Comment on above: Order Comment: Is pa tient fasting? UNKNOWN Performed By: #### L 600.70375, L600.97419 #### Test performed at: [place] [id number] UR ETHANOL QTon 07-02-2020 UR ETHANOL QT < 3.0 Normal <10.0 [facility] Comment on above: Result Comment: UNCO NFIRMED Toxicology results. For MEDICAL purposes only. Performed By: #### L 600.56603, L600.67266 #### Test performed at: [place] [address] Final Surgical Pathology Rep [facility] 11-18-2019 Final Surgical Pathology Report . Pathology Reports Accession: Collected Date/Time: Received Date/Time: Pathologist: [id number] 11/14/2019 10:20 EDT 11/17/2019 09:01 EDT AL VALENTIN MD Final Surgical Pathology Report DIAGNOSIS: A) COLON, HEPATIC FLEXURE, POLYPECTOMY - TUBULAR ADENOMA. B) RIGHT AND LEFT COLON, BIOPSIES - NEGATIVE FOR COLITIS. COMMENT: [facility] - [id number] CLINICAL INFORMATION: Procedure: COLONOSCOPY WITH POLYPECTOMY, INJECTION OF ELEVIEW, TATTOOING OF POLYP SITE , BIOPSIES, APPLICATION OF ARGON PLASMA COAGULATION. Preoperative diagnosis: RECTAL BLEED, DIARRHEA, FAMILY COLON CANCER Postoperative diagnosis: SAME SPECIMEN: A HEPATIC FLEXURE POLYP B RIGHT AND LEFT COLON BIOPSY - R/O MICROSCOPIC COLITIS GROSS DESCRIPTION: A. Received in formalin, labeled with the patients name, Case #[id number], and hepatic flexure polyp 4 saenz tissue fragments ranging from 0.3 to 0.5 cm. TS -1. B. Received in formalin labeled right and left colon are multiple saenz tissue fragments ranging from 0.2 to 0.3 cm. TS -1. Dictated by AMARILYS GARCIA MICROSCOPIC DESCRIPTION: Slides reviewed. Electronically Signed by Pathology Report verified by [facility] Electronically signed by AL VALENTIN Sign out Date: 11/18/2019 16:30 Performing Lab: [facility], [address] [place] [address] ([place]) Comment on above: Performed By: #### S PFR #### [place] [address] Vital Signs Date Time Vital Sign Value Performing Clinician Isaías ward 01-10-2022 10:21-0500 Body temperature 97.9 [degF] Jasmin Natanael DATA OPERATIONS LEADER.CERTIFIED TEACHER ASSISTANT Work Phone: [facility] 01-10-2022 10:21-0500 Body weight 173.73 kg Jasmin Natanael DATA OPERATIONS LEADER.CERTIFIED TEACHER ASSISTANT Work Phone: [facility] 01-10-2022 10:21-0500 Diastolic blood pressure 80 mm[Hg] Jasmin Natanael DATA OPERATIONS LEADER.CERTIFIED TEACHER ASSISTANT Work Phone: [facility] 01-10-2022 10:21-0500 Heart rate 106 /min Jasmin Natanael DATA OPERATIONS LEADER.CERTIFIED TEACHER ASSISTANT Work Phone: [facility] 01-10-2022 10:21-0500 Respiratory rate 18 /min Jasmin Natanael DATA OPERATIONS LEADER.CERTIFIED TEACHER ASSISTANT Work Phone: [facility] 01-10-2022 10:21-0500 SaO2% (BldA) [Mass fraction] 98 % Jasmin Natanael DATA OPERATIONS LEADER.CERTIFIED TEACHER ASSISTANT Work Phone: [facility] 01-10-2022 10:21-0500 Systolic blood pressure 122 mm[Hg] Jasmin Natanael DATA OPERATIONS LEADER.CERTIFIED TEACHER ASSISTANT Work Phone: [facility] 09-07-2021 15:40-0400 Body height 167.6 cm Vincent Barrera MD Work Phone: [facility] 09-07-2021 15:40-0400 Body temperature 96.8 [degF] Vincent Barrera MD Work Phone: [facility] 09-07-2021 15:40-0400 Body weight 176.45 kg Vincent Barrera MD Work Phone: [facility] 09-07-2021 15:40-0400 Diastolic blood pressure 90 mm[Hg] Vincent Barrera MD Work Phone: [facility] 09-07-2021 15:40-0400 Heart rate 80 /min Vincent Barrera MD Work Phone: [facility] 09-07-2021 15:40-0400 Respiratory rate 16 /min Vincent Barrera MD Work Phone: [facility] 09-07-2021 15:40-0400 SaO2% (BldA) [Mass fraction] 96 % Vincent Barrera MD Work Phone: [facility] 09-07-2021 15:40-0400 Systolic blood pressure 130 mm[Hg] Vincent Barrera MD Work Phone: [facility] Encounters Encounter Date Encounter Type Care Provider Facility Start: 09-05-2023 End: 09-05-2023 ambulatory EMILY LORRAINE CERTIFIED TEACHER ASSISTANT Facility:[facility] Start: 07-22-2023 End: 07-22-2023 ambulatory EMILY LORRAINE CERTIFIED TEACHER ASSISTANT Facility:[facility] Start: 06-07-2023 End: 06-07-2023 ambulatory EMILY LORRAINE CERTIFIED TEACHER ASSISTANT Facility:[facility] Start: 03-06-2023 End: 03-06-2023 ambulatory CHRISTINA K PRISTAS DO Facility:[facility] Start: 03-06-2023 End: 03-06-2023 ambulatory CHRISTINA K PRISTAS DO Facility:[facility] Start: 01-19-2023 End: 01-19-2023 ambulatory EMILY LORRAINE CERTIFIED TEACHER ASSISTANT Facility:[facility] Start: 11-20-2022 ambulatory EMILY LORRAINE CERTIFIED TEACHER ASSISTANT Facilit y:[facility] Start: 11-18-2022 End: 11-18-2022 ambulatory EMILY LORRAINE CERTIFIED TEACHER ASSISTANT Facility:[facility] Start: 05-01-2022 Telephone encounter Vincent Barrera MD Work Phone: [facility] Comment on above: Orders Start: 04-07-2022 Refill Vincent Gomez MD Work Phone: [facility] Comment on above: Refill Request Start: 04-03-2022 Patient encounter procedure [facility] Provider [facility] Department Start: 02-15-2022 Refill Vincent Gomez MD Work Phone: [facility] Comment on above: Refill Request Start: 01-20-2022 Refill Ana Mcfadden i, APRN.CERTIFIED TEACHER ASSISTANT Work Phone: [facility] Comment on above: Refill Request Start: 01-10-2022 End: 01-10-2022 ambulatory VINCENT NUNOELIUD BARRERA Facility:[facility] Start: 01-10-2022 End: 01-10-2022 Patient encounter procedure Jasmin aSntoyo APRN.CERTIFIED TEACHER ASSISTANT Work Phone: [facility] Comment on above: COVID (Primary Dx); URI with cough and congestion Start: 12-21-2021 Refill Vincent Gomez MD Work Phone: [facility] Comment on above: Refill Request Start: 11-21-2021 Refill Vincent Gomez MD Work Phone: [facility] Comment on above: Refill Request Start: 10-31-2021 End: 10-31-2021 ambulatory VINCENT CADEELIUD BARRERA Facility:[facility] Start: 10-20-2021 Refill Vincent Gomez MD Work Phone: [facility] Comment on above: Refill Request Start: 10-17-2021 Refill Vincent Gomez MD Work Phone: [facility] Comment on above: Refill Request Start: 09-07-2021 End: 09-07-2021 ambulatory VINCENT CADEELIUD BARRERA Facility:[id number] Start: 09-07-2021 End: 09-07-2021 Office outpatient visit 25 minutes Vincent Barrera MD Work Phone: [facility] Comment on above: Primary hypertension (Primary Dx); Atrial fibrillation, persistent (HCC); Fibromyalgia; Moderate persistent asthma without complication; Pure hypercholesterolemia; 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) (HCC) Start: 08-23-2021 Refill Vincent Gomez MD Work Phone: [facility] Comment on above: Refill Request Start: 07-29-2021 Refill Vincent Gomez MD Work Phone: [facility] [place] Comment on above: Refill Request Procedures Date Procedure Procedure Detail Performing Clinician Start: 07-27-2020 Mammography Vincent banks MD Work Phone: Start: 11-14-2019 Colonoscopy Vincent banks MD Work Phone: Plan of Treatment Date Care Activity Detail Author Start: 11-13-2022 Colonoscopy COLONOSCOPY [facility] Start: 11-13-2022 COLORECTAL CANCER SCREENING COLORECTAL CANCER SCREENING [facility] Start: 10-31-2022 Hepatitis B surface antibody level LDL CHOLESTEROL [facility] Start: 09-07-2022 ANNUAL PCP TEAM CHRONIC DISEASE VISIT ANNUAL PCP TEAM CHRONIC DISEASE VISIT [facility] Start: 02-05-2022 DEPRESSION ASSESSMENT DEPRESSION ASSESSMENT [facility] Start: 01-30-2022 Hemoglobin A1c/Hemoglobin.total in Blood HBA1C [facility] Start: 10-06-2021 Influenza vaccination INFLUENZA (#1) [facility] Start: 09-07-2021 End: 11-07-2021 Comprehensive metabolic 2000 panel - Serum or Plasma COMP METABOLIC PANEL Lab Routine Primary hypertension Pure hypercholesterolemia 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) ([facility]) Expected: 09/07/2021, Expires: 11/07/2021 [facility] Work Phone: Comment on above: Expected: 09/07/2021, Expires: 2 Start: 09-07-2021 End: 11-07-2021 Hemoglobin A1c in Blood HGB A1C Lab Routine 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) (HCC) Expected: 09/07/2021, Expires: 11/07/2021 [facility] Work Phone: Comment on above: Expected: 09/07/2021, Expires: 2 Start: 09-07-2021 End: 11-07-2021 Lipid 1996 panel - Serum or Plasma LIPID PANEL BASIC Lab Routine Pure hypercholesterolemia Expected: 09/07/2021, Expires: 11/07/2021 [facility] Work Phone: Comment on above: Expected: 09/07/2021, Expires: 2 Start: 07-27-2021 Mammography MAMMOGRAM [facility] Start: 02-05-2021 DEPRESSION ASSESSMENT DEPRESSION ASSESSMENT [facility] Start: 12-15-2020 COVID-19 VACCINE (2 - Pfizer series) COVID-19 VACCINE (2 - Pfizer series) [facility] Start: 07-20-2016 PAP TESTING PAP TESTING [facility] Start: 12-05-2015 SHINGRIX VACCINE (1 of 2) SHINGRIX VACCINE (1 of 2) [facility] Start: 2010 COLOGUARD (FIT-DNA) COLOGUARD (FIT-DNA) [facility] Start: 2010 Colonoscopy COLONOSCOPY [facility] Start: 2010 COLORECTAL CANCER SCREENING COLORECTAL CANCER SCREENING [facility] Start: [address] COLONOGRAPHY [facility] Start: 2010 DIABETES SCREEN DIABETES SCREEN [facility] Start: 2010 FECAL OCCULT BLOOD FECAL OCCULT BLOOD [facility] Start: 2010 LIPID SCREEN LIPID SCREEN [facility] Start: 2010 SIGMOIDOSCOPY SIGMOIDOSCOPY [facility] Start: 12-05-1995 HPV TESTING HPV TESTING [facility] Start: 1984 HEPATITIS B (1 of 3 - Risk 3-dose series) HEPATITIS B (1 of 3 - Risk 3-dose series) [facility] Start: 1984 Urine microalbumin profile DTAP,TDAP,TD (1 - Tdap) [facility] Start: 12-05-1983 ANNUAL PCP TEAM CHRONIC DISEASE VISIT ANNUAL PCP TEAM CHRONIC DISEASE VISIT [facility] Start: 12-05-1983 BP CONTROLLED (<130/80) BP CONTROLLED (<130/80) [facility] Start: 12-05-1983 Hepatitis B surface antibody level LDL CHOLESTEROL [facility] Start: 12-05-1983 HEPATITIS C SCREENING HEPATITIS C SCREENING [facility] Start: 12-05-1983 HIV SCREENING HIV SCREENING [facility] Start: 12-05-1983 SPIROMETRY SPIROMETRY [facility] Start: 1977 Adult depression screening assessment DEPRESSION SCREENING [facility] Start: 12-05-1975 3 comp foot exam completed DIABETIC FOOT EXAM [facility] Start: 12-05-1975 Hepatitis B screening URINE ALBUMIN:CREATININE RATIO [facility] Start: 12-05-1975 Hepatitis C antibody, confirmatory test DILATED RETINAL EXAM [facility] Start: 12-05-1971 PNEUMOCOCCAL (1 - PCV) PNEUMOCOCCAL (1 - PCV) [facility] Start: 1970 COVID-19 VACCINE (#1) COVID-19 VACCINE (#1) [facility] Start: 1970 Hemoglobin A1c/Hemoglobin.total in Blood HBA1C [facility] Start: 06-04-1966 COVID-19 VACCINE (#1) COVID-19 VACCINE (#1) [facility] Start: 1965 HEPATITIS B (1 of 3 - 3-dose series) HEPATITIS B (1 of 3 - 3-dose series) [facility] Payers Date Payer Category Payer Unknown MMO MMO [employer] [id number] 2020-Present [phone] [address] [place] [address] PPO [id number] 2020 Unknown [id number] 2020 Unknown [id number] 1965 Unknown [id number] 1965 Unknown [id number] 1965 Unknown [id number] 1965 Unknown [id number] 1965 Unknown [id number] 1965 Unknown [id number] 1965 Unknown [id number] Social History Date Type Detail Facility Start: 08-04-2014 End: 01-10-2022 Tobacco smoking status NHIS Ex-smoker [facility] Start: 02-05-2014 History of tobacco use Smoker [facility] Start: 10-19-2020 End: 01-10-2022 Alcohol intake Current non-drinker of alcohol (finding) [facility] Start: 1965 Sex Assigned At Not on file [facility] Start: 08-28-2021 End: 09-07-2021 Exposure to SARS-CoV-2 (event) Not sure [facility] Start: 02-05-2014 History of tobacco use Cigarette Smo ker [facility] Work Phone: Start: 08-04-2014 End: 01-10-2022 Tobacco use and exposure Smokeless tobacco non-user [facility] Work Phone: Medical Equipment Procedure Code Equipment Code Equipment Origin al Text Equipment Identifier Dates Start: 05-03-2020 End: 11-21-2021 Comment on above: USE DAILY AND NEE DED USE 1 STRIP DIREC KARO ONCE A DAY Clinical Notes 08-23-2021 to 05-01-2022 Telephone Encounter - Vincent Barrera MD - 05/01/2022 3:21 PM EDTTelephone Encounter - Sabrina Benitez LPN - 05/01/2022 11:30 AM EDTTelephone Encounter - Sabrina Benitez LPN - 04/07/2022 12:56 PM EST Note Date & Type Note Facility 05-01-2022 Miscellaneous Notes Patient is overdue for follow-up. Schedule appointment please. Medicine changed to Tradjenta. LAST OFFICE VISIT: 09/07/21 No upcoming office visit scheduled at this time. Januvia is not covered by patient's insurance. Pharmacy requesting Tradjenta as alternative. Current Medication: Januvia 100 mg daily. Alternative is Tradjenta 5 mg. Do you want to prescribe Tradjenta? I'm not sure of the dose and frequency if you approve. Sabrina Benitez LPN May 01, 2022 11:43 AM documented in this encounter [facility] 04-07-2022 Miscellaneous Notes LAST OFFICE VISIT: 09/07/2021 No upcoming appointment scheduled at this time. Pharmacy verified with patient's today. Requested Prescriptions Pending Prescriptions Disp Refills clonazePAM (KLONOPIN) 0.5 mg tablet 90 tablet 2 Sig: Take 1 tablet by mouth three times daily as needed for anxiety for up to 90 days. Sabrina Benitez LPN April 07, 2022 1:05 PM documented in this encounter [facility] 02-17-2022 Miscellaneous Notes Last Office Visit: 05-23-2021 Next Scheduled Office Visit: None scheduled Requested Prescriptions Pending Prescriptions Disp Refills DULoxetine (CYMBALTA) 30 mg capsule [Pharmacy Med Name: DULOXETINE HCL DR 30 MG CAP] 270 capsule 3 Sig: TAKE 3 CAPSULES BY MOUTH ONCE A DAY DIRECTED Isabel Jara LPN February 17, 2022 10:55 AM documented in this encounter [facility] 01-23-2022 Miscellaneous Notes Pharmacy called requesting the following refill. Requested Prescriptions Pending Prescriptions Disp Refills clonazePAM (KLONOPIN) 0.5 mg tablet [Pharmacy Med Name: CLONAZEPAM 0.5 MG TABLET] 90 tablet 1 Sig: TAKE 1 TABLET BY MOUTH THREE TIMES DAILY NEEDED FOR ANXIETY FOR UP TO 60 DAYS. Patient last appointment: 12/21/2021 Patient Phone numbers: [phone] (home) Request is for script(s) to be escript to pharmacy. Sadia Odell LPN documented in this encounter [facility] 01-10-2022 Note HNO ID: [id number] Author: Jasmin Santoyo APRN.CERTIFIED TEACHER ASSISTANT Service: ? Author Type: Nurse Practitioner Type: Progress Notes Filed: 01/10/2022 10:48 AM Note Text: Subjective The history is provided by the patient. No high school foreign language teacher was used. HPI Bree Daley is a 56 year old female who presents today for CC of positive home covid. She is ahving cough, runny nose and sore throat and phlegm, requesting antibiotic. Patient has h/o obesity, htn, T2D, chronic lung disease. Discuss candidate for paxlovid would like prescription BP 122/80 Pulse 106 Temp 36.6 ?C (97.9 ?F) Resp 18 Wt (!) 173.7 kg (383 lb) LMP 06/05/2014 SpO2 98% BMI 61.82 kg/m? Social History Tobacco Use Smoking status: Former Types: Cigarettes Start date: 02/05/2014 Smokeless tobacco: Never Vaping Use Vaping Use: Former Substance Use Topics Alcohol use: No Drug use: No PAST MEDICAL HISTORY Diagnosis Date Anxiety Asthma since childhood Depression Diabetes mellitus (HCC) Fibromyalgia Hypertension Mixed hyperlipidemia Obesity TAMMI (obstructive sleep apnea) Osteoarthritis Polycystic ovarian disease SVT (supraventricular tachycardia) (HCC) I have confirmed and edited as necessary, the [facility] Review of Systems Constitutional: Positive for malaise/fatigue. Negative for chills and fever. HENT: Positive for congestion, sinus pain and sore throat. Negative for ear pain. Respiratory: Positive for cough. Negative for sputum production, shortness of breath and wheezing. Cardiovascular: Negative for chest pain. Musculoskeletal: Negative for myalgias. Neurological: Negative for headaches. Objective Physical Exam Vitals and nursing note reviewed. HENT: Head: Normocephalic and atraumatic. Right Ear: Tympanic membrane, ear canal and external ear normal. Left Ear: Tympanic membrane, ear canal and external ear normal. Nose: Mucosal edema, congestion and rhinorrhea present. Right Sinus: No maxillary sinus tenderness or frontal sinus tenderness. Left Sinus: No maxillary sinus tenderness or frontal sinus tenderness. Mouth/Throat: Pharynx: Uvula midline. Posterior oropharyngeal erythema present. No oropharyngeal exudate. Cardiovascular: Rate and Rhythm: Normal rate and regular rhythm. Heart sounds: Normal heart sounds. Pulmonary: Effort: Pulmonary effort is normal. Breath sounds: Normal breath sounds. Lymphadenopathy: Head: Right side of head: No submental, submandibular or tonsillar adenopathy. Left side of head: No submental, submandibular or tonsillar adenopathy. Cervical: No cervical adenopathy. Skin: General: Skin is warm and dry. Neurological: Mental Status: She is alert. Psychiatric: Mood and Affect: Affect normal. Nirmatrelvir/Ritonavir (Paxlovid) Eligibility and Patient Discussion [facility] Formulary Restriction Criteria: Adult outpatients 18 years and older with ALL of the following: [x] Patient has positive SARS-COV-2 viral test (PCR or antigen test) during current illness [x] Patient has symptoms for 5 days or less [x] Not requiring hospitalization at any time for management of COVID-19 [x] Not requiring supplemental oxygen or a change in baseline supplemental oxygen [x] Not utilized for pre-exposure or post-exposure prophylaxis for prevention of COVID-19 [x] Patient does not have severe renal impairment (eGFR < 30 mL/min) or severe hepatic impairment (Child-Saunders Class C) [x] Meeting at least one of the criteria for high risk of progression to severe COVID-19: [] Age over 65 years [] Cancer [] Chronic kidney disease [] Chronic liver disease [x] Chronic lung diseases, including cystic fibrosis [] Dementia or other neurological conditions [x] Diabetes (type 1 or type 2) [] Disabilities, including Down syndrome and neurodevelopmental disorders [x] Heart conditions [] HIV infection [] Immunocompromised state [] Mental health conditions [] Medical related technological dependence (tracheostomy, gastrostomy, or positive pressure ventilation (not related to COVID) [x] Overweight and obesity (BMI greater or equal to 25 for adults) [] Physical inactivity [] [] Sickle cell disease or thalassemia [] Smoking, current or former [] Solid organ or blood stem cell transplant [] Stroke or cerebrovascular disease [] Substance use disorders [] Tuberculosis [] People from racial and ethnic minority groups Criteria above are met: Yes Date of Positive Test:01.09.2022 Date of Symptom Onset: 01.07.2022 Patient received COVID vaccine: No Drug-Drug interactions reviewed: Yes. No drug interactions were identified. I have discussed the use of the investigational therapeutic, nirmatrelvir/ritonavir, for the treatment of mild to moderate COVID-19 and its use under Emergency Use Authorization with the patient. The patient was informed that nirmatrelvir/ritonavir is not an FDA approved drug and that it (more content not included)... [facility] 01-10-2022 Instructions Jasmin Santoyo APRN.CERTIFIED TEACHER ASSISTANT - 01/10/2022 10:33 AM EST Rest, increase water intake Tylenol as needed for fever or pain. Salt water gargles, chloraseptic spray or lozenges as needed for sore throat. Warm beverages, honey. Nasal saline spray as needed Cool mist humidifier at night [facility] FACT SHEET FOR PATIENTS, PARENTS, AND CAREGIVERS EMERGENCY USE AUTHORIZATION (EUA) OF PAXLOVID FOR CORONAVIRUS DISEASE 2019 (COVID-19) You are being given this Fact Sheet because your healthcare provider believes it is necessary to provide you with PAXLOVID for the treatment of rilz-gi-atnfrlsk coronavirus disease (COVID-19) caused by the SARS-CoV-2 virus. This Fact Sheet contains information to help you understand the risks and benefits of taking the PAXLOVID you have received or may receive. The U.S. Food and Drug Administration (FDA) has issued an Emergency Use Authorization (EUA) to make PAXLOVID available during the COVID-19 pandemic (for more details about an EUA please see What is an Emergency Use Authorization? at the end of this document). PAXLOVID is not an FDA-approved medicine in the [place]. Read this Fact Sheet for information about PAXLOVID. Talk to your healthcare provider about your options or if you have any questions. It is your choice to take PAXLOVID. What is COVID-19? COVID-19 is caused by a virus called a coronavirus. You can get COVID-19 through close contact with another person who has the virus. COVID-19 illnesses have ranged from very vswg-bm-vpkgwn, including illness resulting in . While information so far suggests that most COVID-19 illness is mild, serious illness can happen and may cause some of your other medical conditions to become worse. Older people and people of all ages with severe, long lasting (chronic) medical conditions like heart disease, lung disease, and diabetes, for example seem to be at higher risk of being hospitalized for COVID-19. What is PAXLOVID? PAXLOVID is an investigational medicine used to treat wmch-hf-porpmttg COVID-19 in adults and children [12 years of age and older weighing at least 88 pounds (40 kg)] with positive results of direct SARS-CoV-2 viral testing, and who are at high risk for progression to severe COVID-19, including hospitalization or . PAXLOVID is investigational because it is still being studied. There is limited information about the safety and effectiveness of using PAXLOVID to treat people with feyl-gg-ngsulneu COVID-19. The FDA has authorized the emergency use of PAXLOVID for the treatment of rnfi-ti-fplawpse COVID-19 in adults and children [12 years of age and older weighing at least 88 pounds (40 kg)] with a positive test for the virus that causes COVID-19, and who are at high risk for progression to severe COVID-19, including hospitalization or , under an EUA. 1 Revised: 22 April 2021 What should I tell my healthcare provider before I take PAXLOVID? Tell your healthcare provider if you: Have any allergies Have liver or kidney disease Are or plan to become Are a child Have any serious illnesses Tell your healthcare provider about all the medicines you take, including prescription and nrgi-wyg-rgimefs medicines, vitamins, and herbal supplements. Some medicines may interact with PAXLOVID and may cause serious side effects. Keep a list of your medicines to show your healthcare provider and pharmacist when you get a new medicine. You can ask your healthcare provider or pharmacist for a list of medicines that interact with PAXLOVID. Do not start taking a new medicine without telling your healthcare provider. Your healthcare provider can tell you if it is safe to take PAXLOVID with other medicines. Tell your healthcare provider if you are taking combined hormonal contraceptive. PAXLOVID may affect how your control pills work. Females who are able to become should use another effective alternative form of contraception or an additional barrier method of contraception. Talk to your healthcare provider if you have any questions about contraceptive methods that might be right for you. How do I take PAXLOVID? PAXLOVID consists of 2 medicines: nirmatrelvir and ritonavir. Take 2 pink tablets of nirmatrelvir with 1 white tablet of ritonavir by mouth 2 times each day (in the morning and in the evening) for 5 days. For each dose, take all 3 tablets at the same time. If you have kidney disease, talk to your healthcare provider. You may need a different dose. Swallow the tablets whole. Do not chew, break, or crush the tablets. Take PAXLOVID with or without food. Do not stop taking PAXLOVID without talking to your healthcare provider, even if you feel better. If you miss a dose of PAXLOVID within 8 hours of the time it is usually taken, take it as soon as you remember. If you miss a dose by more than 8 hours, skip the missed dose and take the next dose at your regular time. Do not take 2 doses of PAXLOVID at the same time. If you take too much PAXLOVID, call your healthcare provider or go to the nearest hospital emergency room right away. If you are taking a ritonavir-or cobicistat-containing medicine to treat hepatitis C or Human Immunodeficiency Virus (HIV), you should continue to take your medicine as prescribed by your healthcare provider. Talk to your healthcare provider if you do not feel better or if you feel worse after 5 days. Who should generally not take PAXLOVID? Do not take PAXLOVID if: You are allergic to nirmatrelvir, ritonavir, or any of the ingredients in PAXLOVID You are taking any of the following medicines: Alfuzosin Pethidine, propoxyphene Ranolazine Amiodarone, dronedarone, flecainide, propafenone, quinidine Colchicine Lurasidone, pimozide, clozapine Dihydroergotamine, ergotamine, methylergonovine Lovastatin, simvastatin Sildenafil (Revatio ) for pulmonary arterial hypertension (PAH) Triazolam, oral midazolam Apalutamide Carbamazepine, phenobarbital, phenytoin Rifampin [place] s Wort (hypericum perforatum) Taking PAXLOVID with these medicines may cause serious or life-threatening side effects or affect how PAXLOVID works. These are not the only medicines that may cause serious side effects if taken with PAXLOVID. PAXLOVID may increase or decrease the levels of multiple other medicines. It is very important to tell your healthcare provider about all of the medicines you are taking because additional laboratory tests or changes in the dose of your other medicines may be necessary while you are taking PAXLOVID. Your healthcare provider may also tell you about specific symptoms to watch out for that may indicate that you need to stop or decrease the dose of some of your other medicines. What are the important possible side effects of PAXLOVID? Possible side effects of PAXLOVID are: Allergic Reactions. Allergic reactions can happen in people taking PAXLOVID, even after only 1 dose. Stop taking PAXLOVID and call your healthcare provider right away if you get any of the following symptoms of an allergic reaction: hives trouble swallowing or breathing swelling of the mouth, lips, or face throat tightness hoarseness skin rash Liver Problems. Tell your healthcare provider right away if you have any of these signs and symptoms of liver problems: loss of appetite, yellowing of your skin and the whites of eyes (jaundice), dark-colored urine, pale colored stools and itchy skin, stomach area (abdominal) pain. Resistance to HIV Medicines. If you have untreated HIV infection, PAXLOVID may lead to some HIV medicines not working as well in the future. Other possible side effects include: altered sense of taste diarrhea high blood pressure muscle aches These are not all the possible side effects of PAXLOVID. Not many people have taken PAXLOVID. Serious and unexpected side effects may happen. PAXLOVID is still being studied, so it is possible that all of the risks are not known at this time. What other treatment choices are there? Veklury (remdesivir) is FDA-approved for the treatment of bhht-js-gmvyqlep COVID-19 in certain adults and children. Talk with your doctor to see if Veklury is appropriate for you. Like PAXLOVID, FDA may also allow for the emergency use of other medicines to treat people with COVID-19. Go to https://www.fda.gov/emergency-prep aredness-andresponse/yjv-rsuii-pet qoyrvcd-dta-hrqqas-framework/emerg alpa-hss-ihyurbtxeltah for information on the emergency use of other medicines that are authorized by FDA to treat people with COVID-19. Your healthcare provider may talk with you about clinical trials for which you may be eligible. It is your choice to be treated or not to be treated with PAXLOVID. Should you decide not to receive it or for your child not to receive it, it will not change your standard medical care. What if I am or ? There is cardiovascular sonographer treating women or mothers with PAXLOVID. For a mother and unborn baby, the benefit of taking PAXLOVID may be greater than the risk from the treatment. If you are , discuss your options and specific situation with your healthcare provider. It is recommended that you use effective barrier contraception or do not have sexual activity while taking PAXLOVID. If you are , discuss your options and specific situation with your healthcare provider. How do I report side effects with PAXLOVID? Contact your healthcare provider if you have any side effects that bother you or do not go away. Report side effects to [employer] at www.fda.gov/med1234ENTERtch or call 8-642-NKF0784 or you can report side effects to [employer] at the contact information provided below. Website Fax number Telephone number [employer] How should I store PAXLOVID? Store PAXLOVID tablets at room temperature, between 68?F to 77?F (20?C to 25?C). How can I learn more about COVID-19? Ask your healthcare provider. Visit https://www.cdc.gov/COVID19. Contact your local or state public health department. What is an Emergency Use Authorization (EUA)? The [place] FDA has made PAXLOVID available under an emergency access mechanism called an Emergency Use Authorization (EUA). The EUA is supported by a [place] of Health and Human Service (HHS) declaration that circumstances exist to justify the emergency use of drugs and biological products during the COVID-19 pandemic. PAXLOVID for the treatment of qcet-tr-qebntxgk COVID-19 in adults and children [12 years of age and older weighing at least 88 pounds (40 kg)] with positive results of direct SARS-CoV-2 viral testing, and who are at high risk for progression to severe COVID-19, including hospitalization or , has not undergone the same type of review as an FDA-approved product. In issuing an EUA under the COVID-19 public health emergency, the FDA has determined, among other things, that based on the total amount of scientific evidence available including data from adequate and well-controlled clinical trials, if available, it is reasonable to believe that the product may be effective for diagnosing, treating, or preventing COVID-19, or a serious or life-threatening disease or condition caused by COVID-19; that the known and potential benefits of the product, when used to diagnose, treat, or prevent such disease or condition, outweigh the known and potential risks of such product; and that there are no adequate, approved, and available alternatives. All of these criteria must be met to allow for the product to be used in the treatment of patients during the COVID-19 pandemic. The EUA for PAXLOVID is in effect for the duration of the COVID-19 declaration justifying emergency use of this product, unless terminated or revoked (after which the products may no longer be used under the EUA). Additional Information For general questions, visit the website or call the telephone number provided below. Website Telephone number [email or web address] (5-022-T96-TNCH) You can also go to www.[employer] or call for more information. [employer] [place] [address] [id number] Revised: 22 April 2021 documented in this encounter [facility] 01-10-2022 History of Present illness Narrative Subjective The history is provided by the patient. No high school foreign language teacher was used. CORNELIO Daley is a 56 year old female who presents today for CC of positive home covid. She is ahving cough, runny nose and sore throat and phlegm, requesting antibiotic. Patient has h/o obesity, htn, T2D, chronic lung disease. Discuss candidate for paxlovid would like prescription BP 122/80 Pulse 106 Temp 36.6 C (97.9 F) Resp 18 Wt (!) 173.7 kg (383 lb) LMP 06/05/2014 SpO2 98% BMI 61.82 kg/m Social History Tobacco Use Smoking status: Former Types: Cigarettes Start date: 02/05/2014 Smokeless tobacco: Never Vaping Use Vaping Use: Former Substance Use Topics Alcohol use: No Drug use: No PAST MEDICAL HISTORY Diagnosis Date Anxiety Asthma since childhood Depression Diabetes mellitus (HCC) Fibromyalgia Hypertension Mixed hyperlipidemia Obesity TAMMI (obstructive sleep apnea) Osteoarthritis Polycystic ovarian disease SVT (supraventricular tachycardia) (HCC) I have confirmed and edited as necessary, the [facility] Review of Systems Constitutional: Positive for malaise/fatigue. Negative for chills and fever. HENT: Positive for congestion, sinus pain and sore throat. Negative for ear pain. Respiratory: Positive for cough. Negative for sputum production, shortness of breath and wheezing. Cardiovascular: Negative for chest pain. Musculoskeletal: Negative for myalgias. Neurological: Negative for headaches. Objective Physical Exam Vitals and nursing note reviewed. HENT: Head: Normocephalic and atraumatic. Right Ear: Tympanic membrane, ear canal and external ear normal. Left Ear: Tympanic membrane, ear canal and external ear normal. Nose: Mucosal edema, congestion and rhinorrhea present. Right Sinus: No maxillary sinus tenderness or frontal sinus tenderness. Left Sinus: No maxillary sinus tenderness or frontal sinus tenderness. Mouth/Throat: Pharynx: Uvula midline. Posterior oropharyngeal erythema present. No oropharyngeal exudate. Cardiovascular: Rate and Rhythm: Normal rate and regular rhythm. Heart sounds: Normal heart sounds. Pulmonary: Effort: Pulmonary effort is normal. Breath sounds: Normal breath sounds. Lymphadenopathy: Head: Right side of head: No submental, submandibular or tonsillar adenopathy. Left side of head: No submental, submandibular or tonsillar adenopathy. Cervical: No cervical adenopathy. Skin: General: Skin is warm and dry. Neurological: Mental Status: She is alert. Psychiatric: Mood and Affect: Affect normal. Nirmatrelvir/Ritonavir (Paxlovid) Eligibility and Patient Discussion [facility] Formulary Restriction Criteria: Adult outpatients 18 years and older with ALL of the following: [x] Patient has positive SARS-COV-2 viral test (PCR or antigen test) during current illness [x] Patient has symptoms for 5 days or less [x] Not requiring hospitalization at any time for management of COVID-19 [x] Not requiring supplemental oxygen or a change in baseline supplemental oxygen [x] Not utilized for pre-exposure or post-exposure prophylaxis for prevention of COVID-19 [x] Patient does not have severe renal impairment (eGFR < 30 mL/min) or severe hepatic impairment (Child-Saunders Class C) [x] Meeting at least one of the criteria for high risk of progression to severe COVID-19: [] Age over 65 years [] Cancer [] Chronic kidney disease [] Chronic liver disease [x] Chronic lung diseases, including cystic fibrosis [] Dementia or other neurological conditions [x] Diabetes (type 1 or type 2) [] Disabilities, including Down syndrome and neurodevelopmental disorders [x] Heart conditions [] HIV infection [] Immunocompromised state [] Mental health conditions [] Medical related technological dependence (tracheostomy, gastrostomy, or positive pressure ventilation (not related to COVID) [x] Overweight and obesity (BMI greater or equal to 25 for adults) [] Physical inactivity [] [] Sickle cell disease or thalassemia [] Smoking, current or former [] Solid organ or blood stem cell transplant [] Stroke or cerebrovascular disease [] Substance use disorders [] Tuberculosis [] People from racial and ethnic minority groups Criteria above are met: Yes Date of Positive Test:01.09.2022 Date of Symptom Onset: 01.07.2022 Patient received COVID vaccine: No Drug-Drug interactions reviewed: Yes. No drug interactions were identified. I have discussed the use of the investigational therapeutic, nirmatrelvir/ritonavir, for the treatment of mild to moderate COVID-19 and its use under Emergency Use Authorization with the patient. The patient was informed that nirmatrelvir/ritonavir is not an FDA approved drug and that it is authorized for use under this Emergency Use Authorization. The patient was also informed of the significant known benefits and potential risks of nirmatrelvir/ritonavir, and the extent to which such potential risks and benefits are unknown. The patient was informed that there is mandatory reporting of all medication errors and serious adverse events potentially related to nirmatrelvir/ritonavir treatment within 7 calendar days from the onset of the event and that events up to 28 days after completion of therapy need to be reported. The discussion included alternatives to receiving nirmatrelvir/ritonavir, including clinical trials, and potential the risks and benefits of those alternatives. The patient was provided electronically with the Fact Sheet for Patients, Parents and Caregivers . The patient was also instructed that in addition to the treatment with nirmatrelvir/ritonavir, he/she should continue to self-isolate and use infection control measures (e.g., wear mask, isolate, social distance, avoid sharing personal items, clean and disinfect high touch surfaces, and frequent handwashing) according to CDC guidelines. The patient stated understanding and gave verbal consent to proceeding with nirmatrelvir/ritonavir treatment. ASSESSMENT/PLAN: 1. COVID - ICD9: 079.89, ICD10: U07.1 (primary diagnosis) Paxlovid prescription given, patient will start if comfortable after reading handout On inhaled steroid, only drug interaction, no significant 2. URI with cough and congestion - ICD9: 465.9, ICD10: J06.9 - Discussed viral etiology and rationale for treatment. - Symptomatic treatment with prn analgesia - Supportive care with fluids and rest Diagnosis and treatment plan were discussed and questions were answered to the patient's satisfaction. Pt acknowledged understanding of concepts and follow up plan. Specific signs and symptoms that would indicate the need for higher level of care were discussed in detail warranting prompt ER evaluation. Jasmin Santoyo APRN.HIRA January 10, 2022 10:32 AM documented in this encounter [facility] 12-21-2021 Miscellaneous Notes Patient called requesting the following refill. Requested Prescriptions Pending Prescriptions Disp Refills clonazePAM (KLONOPIN) 0.5 mg tablet 90 tablet 0 Sig: Take 1 tablet by mouth three times daily as needed for anxiety for up to 60 days. Patient last appointment: Visit date not found Patient Phone numbers: [phone] (home) Request is for script(s) to be escript to pharmacy. Sadia Odell LPN documented in this encounter [facility] 11-21-2021 Miscellaneous Notes Pharmacy MyChart message requesting the following refill. Requested Prescriptions Pending Prescriptions Disp Refills TRUE METRIX GLUCOSE TEST STRIP test strip [Pharmacy Med Name: TRUE METRIX GLUCOSE TEST STRIP] 100 Strip 4 Sig: USE 1 STRIP DIRECTED ONCE A DAY Patient last appointment: 11/01/2021 Patient Phone numbers: [phone] (home) Request is for script(s) to be escript to [facility] pharmacy. Shani Colon LPN documented in this encounter [facility] 10-20-2021 Miscellaneous Notes Requested Prescriptions Pending Prescriptions Disp Refills glimepiride (AMARYL) 2 mg tablet [Pharmacy Med Name: GLIMEPIRIDE 2 MG TABLET] 90 tablet 3 Sig: TAKE 1 TABLET BY MOUTH EVERY DAY Isabel Jara LPN October 20, 2021 8:41 AM documented in this encounter [facility] 10-17-2021 Miscellaneous Notes Requested Prescriptions Pending Prescriptions Disp Refills clonazePAM (KLONOPIN) 0.5 mg tablet 90 tablet 1 Sig: Take 1 tablet by mouth three times daily as needed for anxiety for up to 60 days. Isabel Jara LPN October 17, 2021 2:55 PM documented in this encounter [facility] 09-07-2021 Note HNO ID: [id number] Author: Vincent Barrera MD Service: ? Author Type: Physician Type: Progress Notes Filed: 09/07/2021 5:05 PM Note Text: This note was created using [employer]riter. Subjective Bree Daley is a 55 year old female who presents today for follow-up for multiple medical problems. See list. Her chronic medical problems been stable in terms of her blood pressure and cholesterol. She is having increased depressed mood. She is currently on Cymbalta 90 mg daily. Additionally her sugars have been higher. Her weight loss surgery has been postponed due to elevated A1c.. She is also complaining of a yeast infection under her breast. This has been a recurrent issue. Review of Systems Constitutional: Negative. HENT: Negative. Eyes: Negative. Respiratory: Negative. Cardiovascular: Negative. Gastrointestinal: Negative. Endocrine: Negative. Genitourinary: Negative. Musculoskeletal: Negative. Skin: Negative. Allergic/Immunologic: Negative. Neurological: Negative. Hematological: Negative. Psychiatric/Behavioral: Negative. Objective BP 130/90 (BP Site: Left Arm, BP Cuff Size: Large Adult) Pulse 80 Temp 36 ?C (96.8 ?F) (Temporal) Resp 16 Ht 167.6 cm (5' 6 ) Wt (!) 176.4 kg (389 lb) LMP 06/05/2014 SpO2 96% BMI 62.79 kg/m? Physical Exam Vitals reviewed. Constitutional: Appearance: Normal appearance. She is obese. HENT: Head: Normocephalic and atraumatic. Nose: Nose normal. Eyes: Extraocular Movements: Extraocular movements intact. Pupils: Pupils are equal, round, and reactive to light. Cardiovascular: Rate and Rhythm: Normal rate and regular rhythm. Pulmonary: Effort: Pulmonary effort is normal. Breath sounds: Normal breath sounds. Abdominal: General: Bowel sounds are normal. Palpations: Abdomen is soft. Musculoskeletal: General: Normal range of motion. Cervical back: Normal range of motion and neck supple. Skin: General: Skin is warm and dry. Capillary Refill: Capillary refill takes less than 2 seconds. Neurological: General: No focal deficit present. Mental Status: She is alert and oriented to person, place, and time. Mental status is at baseline. Psychiatric: Mood and Affect: Mood normal. Behavior: Behavior normal. Assessment and Plan Bree was seen today for follow up. Diagnoses and all orders for this visit: Primary hypertension - COMP METABOLIC PANEL; Future Atrial fibrillation, persistent (HCC) Fibromyalgia Moderate persistent asthma without complication Pure hypercholesterolemia - COMP METABOLIC PANEL; Future - LIPID PANEL BASIC; Future 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) ([facility]) - HGB A1C; Future - COMP METABOLIC PANEL; Future Other orders - fluconazole (DIFLUCAN) 150 mg tablet; Take 1 tablet by mouth once daily for 14 days. - buPROPion XL (WELLBUTRIN XL) 150 mg 24 hr tablet; Take 1 tablet by mouth once daily. Treat yeast infection with Diflucan. Check A1c. Adjust diabetes medicines as necessary. Add Wellbutrin to Cymbalta. Follow-up in 1 month. [facility] 09-07-2021 Note HNO ID: [id number] Author: Vincent Barrera MD Service: ? Author Type: Physician Type: Progress Notes Filed: 09/07/2021 5:05 PM Note Text: This note was created using [email or web address]. Allison Daley is a 55 year old female. HPI Review of Systems Objective BP 130/90 (BP Site: Left Arm, BP Cuff Size: Large Adult) Pulse 80 Temp 36 ?C (96.8 ?F) (Temporal) Resp 16 Ht 167.6 cm (5' 6 ) Wt (!) 176.4 kg (389 lb) LMP 06/05/2014 SpO2 96% BMI 62.79 kg/m? Physical Exam Assessment and Plan [facility] 09-07-2021 History of Present illness Narrative This note was created using [email or web address]. Allison Daley is a 55 year old female who presents today for follow-up for multiple medical problems. See list. Her chronic medical problems been stable in terms of her blood pressure and cholesterol. She is having increased depressed mood. She is currently on Cymbalta 90 mg daily. Additionally her sugars have been higher. Her weight loss surgery has been postponed due to elevated A1c.. She is also complaining of a yeast infection under her breast. This has been a recurrent issue. Review of Systems Constitutional: Negative. HENT: Negative. Eyes: Negative. Respiratory: Negative. Cardiovascular: Negative. Gastrointestinal: Negative. Endocrine: Negative. Genitourinary: Negative. Musculoskeletal: Negative. Skin: Negative. Allergic/Immunologic: Negative. Neurological: Negative. Hematological: Negative. Psychiatric/Behavioral: Negative. Objective BP 130/90 (BP Site: Left Arm, BP Cuff Size: Large Adult) Pulse 80 Temp 36 C (96.8 F) (Temporal) Resp 16 Ht 167.6 cm (5' 6 ) Wt (!) 176.4 kg (389 lb) LMP 06/05/2014 SpO2 96% BMI 62.79 kg/m Physical Exam Vitals reviewed. Constitutional: Appearance: Normal appearance. She is obese. HENT: Head: Normocephalic and atraumatic. Nose: Nose normal. Eyes: Extraocular Movements: Extraocular movements intact. Pupils: Pupils are equal, round, and reactive to light. Cardiovascular: Rate and Rhythm: Normal rate and regular rhythm. Pulmonary: Effort: Pulmonary effort is normal. Breath sounds: Normal breath sounds. Abdominal: General: Bowel sounds are normal. Palpations: Abdomen is soft. Musculoskeletal: General: Normal range of motion. Cervical back: Normal range of motion and neck supple. Skin: General: Skin is warm and dry. Capillary Refill: Capillary refill takes less than 2 seconds. Neurological: General: No focal deficit present. Mental Status: She is alert and oriented to person, place, and time. Mental status is at baseline. Psychiatric: Mood and Affect: Mood normal. Behavior: Behavior normal. Assessment and Plan Bree was seen today for follow up. Diagnoses and all orders for this visit: Primary hypertension - COMP METABOLIC PANEL; Future Atrial fibrillation, persistent (HCC) Fibromyalgia Moderate persistent asthma without complication Pure hypercholesterolemia - COMP METABOLIC PANEL; Future - LIPID PANEL BASIC; Future 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) (HCC) - HGB A1C; Future - COMP METABOLIC PANEL; Future Other orders - fluconazole (DIFLUCAN) 150 mg tablet; Take 1 tablet by mouth once daily for 14 days. - buPROPion XL (WELLBUTRIN XL) 150 mg 24 hr tablet; Take 1 tablet by mouth once daily. Treat yeast infection with Diflucan. Check A1c. Adjust diabetes medicines as necessary. Add Wellbutrin to Cymbalta. Follow-up in 1 month. This note was created using [employer]proter. Subjective Bree Daley is a 55 year old female. HPI Review of Systems Objective BP 130/90 (BP Site: Left Arm, BP Cuff Size: Large Adult) Pulse 80 Temp 36 C (96.8 F) (Temporal) Resp 16 Ht 167.6 cm (5' 6 ) Wt (!) 176.4 kg (389 lb) LMP 06/05/2014 SpO2 96% BMI 62.79 kg/m Physical Exam Assessment and Plan documented in this encounter [facility] 08-23-2021 Miscellaneous Notes Summary: Rx refill [facility] pharmacy paper request sent: Pending Prescriptions Disp Refills ALBUTEROL SULFATE HFA 90 MCG/ACTUATION AEROSOL INHALER 1 Inhaler 3 Sig: Inhale 2 Puffs as instructed every 6 hours as needed for wheezing/shortness of breath. DARLING: No Isabel Jara LPN August 23, 2021 3:26 PM documented in this encounter [facility] Evaluation note Diagnosis RAJESH (generalized anxiety disorder)- Primary Generalized anxiety disorder [facility] Diagnosis Primary hypertension- Primary Unspecified essential hypertension Atrial fibrillation, persistent (HCC) Atrial fibrillation Fibromyalgia Mylagia and myositis, unspecified Moderate persistent asthma without complication Unspecified asthma Pure hypercholesterolemia 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) ([facility]) [facility] RAJESH (generalized anxiety disorder) Generalized anxiety disorder [facility] Diagnosis Type 2 diabetes mellitus with hyperglycemia ([facility]) Type II or unspecified type diabetes mellitus without mention of complication, not stated as uncontrolled [facility] Diagnosis RAJESH (generalized anxiety disorder) Generalized anxiety disorder [facility] COVID- Primary URI with cough and congestion documented in this encounter [facility] Summary Purpose Family History No Family History Records FoundNo Family History Records FoundNo Family History Records FoundNo Family History Records FoundNo Family History Records FoundNo Family History Records FoundNo Family History Records Found Advance Directives No Advanced Directives Records FoundNo Advanced Directives Records FoundNo Advanced Directives Records FoundNo Advanced Directives Records FoundNo Advanced Directives Records FoundNo Advanced Directives Records FoundNo Advanced Directives Records Found Additional Source Comments INFORMATION SOURCE (unrecogn ized section and content) DATE CREATED AUTHOR 11/24/2019 [facility] ([place]) DATE CREATED AUTHOR AUTHOR'S ORGANIZ ATION 08/07/2020 [facility] Callie raya Narvon DATE CREATED AUTHOR AUTHOR'S ORGANIZ ATION 09/26/2020 [facility] DATE CREATED AUTHOR AUTHOR'S ORGANIZ ATION 01/11/2022 [facility] DATE CREATED AUTHOR AUTHOR'S ORGANIZ ATION 05/03/2022 [facility] Callie raya DATE CREATED AUTHOR AUTHOR'S ORGANIZ ATION 11/21/2022 [facility] DATE CREATED AUTHOR AUTHOR'S ORGANIZ ATION 11/03/2023 [facility] Source Comments (unrecognize d section and content) In the event this informatio n is protected by the Federal Confidentiality of Alcohol and Drug Abuse Patient Records regulations: The Federal rules restrict any use of the information to criminally investigate or prosecute any alcohol or drug abuse patient.[facility] the event this information is protected by the Federal Confidentiality of Alcohol and Drug Abuse Patient Records regulations: The Federal rules restrict any use of the information to criminally investigate or prosecute any alcohol or drug abuse patient.[facility] the event this information is protected by the Federal Confidentiality of Alcohol and Drug Abuse Patient Records regulations: The Federal rules restrict any use of the information to criminally investigate or prosecute any alcohol or drug abuse patient.[facility] the event this information is protected by the Federal Confidentiality of Alcohol and Drug Abuse Patient Records regulations: The Federal rules restrict any use of the information to criminally investigate or prosecute any alcohol or drug abuse patient.[facility] the event this information is protected by the Federal Confidentiality of Alcohol and Drug Abuse Patient Records regulations: The Federal rules restrict any use of the information to criminally investigate or prosecute any alcohol or drug abuse patient.[facility] the event this information is protected by the Federal Confidentiality of Alcohol and Drug Abuse Patient Records regulations: The Federal rules restrict any use of the information to criminally investigate or prosecute any alcohol or drug abuse patient.[facility] the event this information is protected by the Federal Confidentiality of Alcohol and Drug Abuse Patient Records regulations: The Federal rules restrict any use of the information to criminally investigate or prosecute any alcohol or drug abuse patient.[facility] the event this information is protected by the Federal Confidentiality of Alcohol and Drug Abuse Patient Records regulations: The Federal rules restrict any use of the information to criminally investigate or prosecute any alcohol or drug abuse patient.[facility] the event this information is protected by the Federal Confidentiality of Alcohol and Drug Abuse Patient Records regulations: The Federal rules restrict any use of the information to criminally investigate or prosecute any alcohol or drug abuse patient.[facility] the event this information is protected by the Federal Confidentiality of Alcohol and Drug Abuse Patient Records regulations: The Federal rules restrict any use of the information to criminally investigate or prosecute any alcohol or drug abuse patient.[facility] the event this information is protected by the Federal Confidentiality of Alcohol and Drug Abuse Patient Records regulations: The Federal rules restrict any use of the information to criminally investigate or prosecute any alcohol or drug abuse patient.[facility] the event this information is protected by the Federal Confidentiality of Alcohol and Drug Abuse Patient Records regulations: The Federal rules restrict any use of the information to criminally investigate or prosecute any alcohol or drug abuse patient.[facility] the event this information is protected by the Federal Confidentiality of Alcohol and Drug Abuse Patient Records regulations: The Federal rules restrict any use of the information to criminally investigate or prosecute any alcohol or drug abuse patient.[facility] Reason for Visit (unrecogniz ed section and content) Reason Onset Date Comments Refill Request 07/29/2021 Reason Onset Date Comments Refill Request 08/23/2021 Reason Comments Follow Up DM f/u depression Reason Onset Date Comments Refill Request 10/17/2021 Reason Comments Refill Request Reason Onset Date Comments Refill Request 12/21/2021 Reason Comments Nasal Congestion cough,sore throat x 3 days, + home covid test Reason Onset Date Comments Refill Request 04/07/2022 Reason Comments Orders Care Teams (unrecognized sec tion and content) [employer] 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 Relationship Specialty Start Date End Date Vincent Barrera MD [address] [place] [address] PCP - General Family Practice 07/15/18 Chayo Harper MD Primary Staff Physician Cardiology 10/20/20 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 Relationship Specialty Start Date End Date Vincent Barrera MD [address] [place], [place] [address] PCP - General Family Practice 07/15/18 Chayo Harper MD Primary Staff Physician Cardiology 10/20/20 [employer] 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 Relationship Specialty Start Date End Date Vincent Barrera MD [address] [place] [address] PCP - General Family Practice 07/15/18 Chayo Harper MD Primary Staff Physician Cardiology 10/20/20 [employer] 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 Relationship Specialty Start Date End Date Vincent Barrera MD [address] [place] [address] PCP - General Family Practice 07/15/18 Chayo Harper MD Primary Staff Physician Cardiology 10/20/20 [employer] 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 Relationship Specialty Start Date End Date Vincent Barrera MD [address] [place] [address] PCP - General Family Practice 07/15/18 Chayo Harper MD Primary Staff Physician Cardiology 10/20/20 [employer] 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 Relationship Specialty Start Date End Date Vincent Barrera MD [address] [place] [address] PCP - General Family Medicine 07/15/18 Chayo Harper MD Primary Staff Physician Cardiology 10/20/20 [employer] 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 Relationship Specialty Start Date End Date Vincent Barrera MD [address] [place] [address] PCP - General Family Medicine 07/15/18 Chayo Harper MD Primary Staff Physician Cardiology 10/20/20 [employer] 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 Relationship Specialty Start Date End Date Vincent Barrera MD [address] [place] [address] PCP - General Family Medicine 07/15/18 Chayo Harper MD [address] [place] [address] Primary Staff Physician Cardiology 10/20/20 [employer] 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 Relationship Specialty Start Date End Date Vincent Barrera MD [address] [place] [address] PCP - General Family Medicine 07/15/18 Chayo Harper MD [address] [place] [address] Primary Staff Physician Cardiology 10/20/20 [employer] 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 Relationship Specialty Start Date End Date Vincent Barrera MD [address] [place] [address] PCP - General Family Medicine 07/15/18 Chayo Harper MD [address] [place] [address] Primary Staff Physician Cardiology 10/20/20 [employer] 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 Relationship Specialty Start Date End Date Vincent Barrera MD [address] [place] [address] PCP - General Family Medicine 07/15/18 Chayo Hraper MD [address] [place] [address] Primary Staff Physician Cardiology 10/20/20 [employer] 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 Relationship Specialty Start Date End Date Vincent Barrera MD [address] [place] [address] PCP - General Family Medicine 07/15/18 Chayo Harper MD [address] [place] [address] Primary Staff Physician Cardiology 10/20/20 FOR RECORDS PERTAINING TO PATIENTS WHO ARE OR HAVE BEEN ENROLLED IN A CHEMICAL DEPENDENCY/SUBSTANCEABUSE PROGRAM, SOME INFORMATION MAY BE OMITTED. This clinical summary was aggregated from multiple sources. Caution should be exercised in using it in the provision of clinical care. This summary normalizes information from multiple sources, and as a consequence, information in this document may materially change the coding, format and clinical context of patient data. In addition, data may be omitted in some cases. CLINICAL DECISIONS SHOULD BE BASED ON THE PRIMARY CLINICAL RECORDS. [employer] provides no warranty or guarantee of the accuracy or completeness of information in this document.
[2023-11-27 13:43] LABS: Amphetamine Urine VISTA NEGATIVE (<1000 ng/mL); Barbiturate Urine VISTA NEGATIVE (< 200 ng/mL); Benzodiazepine Urine VISTA NEGATIVE (< 200 ng/mL); Cocaine Urine VISTA NEGATIVE (< 300 ng/mL); Ecstacy Urine VISTA POSITIVE (< 500 ng/mL); Methadone Urine VISTA NEGATIVE (< 300 ng/mL); PCP Urine VISTA NEGATIVE (< 25 ng/mL); THC Urine VISTA NEGATIVE (< 50 ng/mL); Vista UDS pH Range 4
== END | disposition home or self-care (01) ==
PROVIDERS: PCP Internal Medicine; Referring Provider Anesthesiology Pain Medicine; Visit Provider Anesthesiology Pain Medicine
DX: F11.20 Opioid dependence, uncomplicated (principal)
CPT/HCPCS: 80307

== ENCOUNTER 2023-12-02 01:16 | Emergency (ER) | payer BC, SELFPAY ==
[2023-12-02] VITALS (10 sets, daily range): BP systolic 86–110; BP diastolic 55–73; PULSE 68–164; RESP 16–17; TEMP 36.6–36.9; O2SAT 98–100; BMI 41.6
--- OUTSIDE RECORDS SUMMARY | 2023-12-02 01:35 | XMS RPT_ITS | CCD ---
Author Organization [facility] Care Team Providers [facility] Aide Name Role Phone Vincent Barrera MD Primary Care Provider Chayo Harper MD Unavailable VINCENT BARRERA Primary Care Unavailab VINCENT Thayer Referring Unavailab VINCENT Thayer Primary Care UnavailVincent Cedeno MD Primary Care Provider Chayo Harper MD Unavailable Chayo Harper MD Unavailable [phone] VINCENT BARRERA Attending Unavailab VINCENT Thayer Primary Care Unavailab le LORRAINE CARPENTER INSPECTOR, EMILY Attending Unavailable LORRAINE CARPENTER INSPECTOR, EMILY Attending Unavailable LORRAINE CARPENTER INSPECTOR, EMILY Attending Unavailable LORRAINE CARPENTER INSPECTOR, EMILY Attending Unavailable PRISTAS DOCHRISTINA Attending Unavailable LORRAINE CARPENTER INSPECTOR, EMILY Attending Unavailable PRISTAS DODALTONCHRISTINA K Attending Unavailable LORRAINE CARPENTER INSPECTOR, EMILY Attending Unavailable LORRAINE CARPENTER INSPECTOR, EMILY Attending Unavailable Allergies Allergy Classification Reported Allergen(s) Allergy Type Date of Onset Reaction(s) Facility (15 sources) Morphine; Translations: [MORPHINE] Drug Allergy 08-04-2014 Mental Status Change [facility] Work Phone: Medications Current Medications Medication [...] Drug Class(es) Dates Sig (Normalized) Sig (Original) [id number] 200 actuat albuterol 0.09 mg/actuat metered dose [...] gel APPLY TO AFFECTED AREA EVERY DAY [id number] 0 05/05/2020 Active Comment on above: APPLY TO AFFECTED AR EA EVERY DAY [id number] DULoxetine 30 mg delayed release oral capsule [...] Active Start: 05-07-2020 take 2 tablets by [facility] twice daily metFORMIN (GLUCOPHAGE) 500 mg tablet Take 2 tablets by mouth twice daily. 0 05/07/2020 Active Comment on above: Take 2 tablets by [facility] twice daily. TAKE 2 TABLETS BY [facility] TWICE A DAY metoprolol tartrate 50 mg [...] 14:03:16 EDT From: EMILY PETERS CNP To: [facility] #[id number] Sent: 11/02/2023 14:03:16 EDT Subject: Medication Management Submitted: Complete:semaglutide (Ozempic 4 mg/3 mL (1 mg dose) subcutaneous solution) Signed by EMILY PETERS CNP 11/02/2023 14:03:00 EDT Approved semaglutide (OZEMPIC 4 MG/3 ML (1 MG/DOSE)) INJECT 1MG SUBCUTANEOUSLY ON SUNDAY FOR 4 WEEKS Qty: 3 unknown unit Days Supply: 30 Refills: 2 Substitutions Allowed Route To Pharmacy - [facility] #[id number] From: [id number] To: EMILY PETERS CNP Sent: October 31, 2023 12:10:10 PM EDT Subject: Medication Management Due: November 01, 2023 11:35:17 AM EDT On Hold Pending Signature Dispensed Drug: semaglutide (Ozempic 4 mg/3 mL (1 mg dose) subcutaneous solution), INJECT 1MG SUBCUTANEOUSLY ON SUNDAY FOR 4 WEEKS Quantity: 3 unknown unit Days Supply: 30 Refills: 2 Substitutions Allowed Notes from Pharmacy: Normal [facility] AMB Bariatric Physician Prog ress Noteon 09-05-2023 [...] Duration: 90 Days Refills: 2 Pickup at [facility]/pharmacy #[id number] Unchanged albuterol = Proventil, Ventolin (ProAir HFA [...] as needed for pain Pharmacy Information [id number]: [address], [place] [id number] [phone] Assessment/Plan This Visit Diagnosis 1. Morbid obesity E66.01 Continue taking multivitamins daily. Keep a food log for 4 days in a row, once a month, every month. Weigh and measure your food. Daily calorie intake should be around 0433-5834 a day. Keep protein intake between 60-80 grams a day Keep fluids intake atleast 60 ounces a day. Increase exercise. Minimum goal is 150 minutes a week, working towards 300 minutes a week. Follow-Up 2 months Ordered: AMB Office/Outpt Est Pt Mod MDM / 30 min 97918, 09/05/2023 15:48:00 EDT, Morbid obesity / BMI [...] headache, fatigu (more content not included)... Normal [facility] Comprehensive Intake - Texto n 09-05-2023 Comprehensive [...] in, 169 cm) Body Mass Index Measured Pakistani : 41.65 kg/m2 BSA Pakistani : 2.36 m2 Sari Payan MA - [...] in last year Sari Payan MA - 09/05/2023 14:39 EDT Normal [facility] Vitamin B1 Whole Bloodon Vitamin B1 Whole Blood 190 nmol/L High 70-180 [facility] Comment on above: Order Comment: Order ed on Fin# [id number] Result Comment: INTE RPRETIVE INFORMATION: Vitamin B1, Whole Blood This assay measures the concentration of thiamine diphosphate (TDP), the primary active form of vitamin B1. Approximately 90 percent of vitamin B1 present in whole blood is TDP. Thiamine and thiamine monophosphate, which comprise the remaining 10 percent, are not measured. This test was developed and its performance characteristics determined by [facility]. It has not been cleared or approved by the [place] Food and Drug Administration. This test was performed in a CLIA certified laboratory and is intended for clinical purposes. Performed By: [facility] [address] [place] [address] Brand Strategist: Rodger Drake MD, PhD CLIA Number: [id number] Performed By: #### C [id number] #### [facility] [address] [place] [address] Drafter Geological: MD JERAMIE Mai Bariatric Physician Prog ress [...] Est Pt Low MDM / 20 min 47494, 03/07/2023 11:56:00 EST, History of sleeve gastrectomy / Sleep apnea / Depression / Anxiety 2. Sleep apnea G47.30 Ordered: AMB Office/Outpt Est Pt Low MDM / 20 min 43448, 03/07/2023 11:56:00 EST, History of sleeve gastrectomy / Sleep apnea / Depression / Anxiety 3. Depression F32.A Ordered: AMB Office/Outpt Est Pt Low MDM / 20 min 69772, 03/07/2023 11:56:00 EST, History of sleeve gastrectomy / Sleep apnea / Depression / Anxiety 4. Anxiety F41.9 Ordered: AMB Office/Outpt Est Pt Low MDM / 20 min 43710, 03/07/2023 11:56:00 EST, History of sleeve gastrectomy / Sleep apnea / Depression / Anxiety Orders: CBCND(CBC WITHOUT DIFFERENTIAL), ROUTINE, 03/06/2023 12:08:00 EST, [id number], Dx: History of sleeve gastrectomy / Sleep apnea COMPMETA(CMP), ROUTINE, 03/06/2023 12:08:00 EST, [id number], Dx: History of sleeve gastrectomy / Sleep apnea FOLATE, ROUTINE, 03/06/2023 12:08 (more content not included)... Normal [facility] Phone Msgon 03-07-2023 Phone Msg - From: [...] September 2022. Will continue to follow. Normal [facility] CBCNDon 03-06-2023 Erythrocyte distribution width (RBC) [Ratio] 13.9 % Normal 11.5-14.5 [facility] Comment on above: Performed By: #### 9 963091, 064480, 603398, 555821, 657502, 733843, 731439 #### [facility] [address] [place] [address] Drafter Geological: Aung Alexander MD Hematocrit (Bld) [Volume fraction] 42.4 % Normal 36.0-46.0 [facility] Comment on above: Performed By: #### 9 404750, 613820, 198277, 082849, 370569, 687389, 528278 #### [facility] [address] [place] [address] Drafter Geological: Aung Alexander MD Hemoglobin (Bld) [Mass/Vol] 14.2 g/dL Normal 12.0-16.0 [facility] Comment on above: Performed By: #### 9 786073, 910776, 185693, 932046, 628251, 396917, 569918 #### [facility] [address] [place] [address] Drafter Geological: Aung Alexander MD Instr WBC ND 11.7 Normal [facility] Comment on above: Performed By: #### 9 351384, 485840, 552463, 237469, 445106, 669149, 377709 #### [facility] [address] [place], [place] [address] Drafter Geological: Aung Alexander MD MCH (RBC) [Entitic mass] 30.3 pg Normal 27.0-34.0 [facility] Comment on above: Performed By: #### 9 788666, 051484, 895825, 122200, 636682, 930197, 703347 #### [facility] [address] [place], [place] [address] Drafter Geological: Aung Alexander MD MCHC (RBC) [Mass/Vol] 33.5 g/dL Normal 32.0-37.0 [facility] Comment on above: Performed By: #### 9 554044, 571209, 664968, 218151, 512533, 995817, 009054 #### [facility] [address] [place], [place] [address] Drafter Geological: Aung Alexander MD MCV (RBC) [Entitic vol] 90.3 fL Normal 80.0-100.0 [facility] Comment on above: Performed By: #### 9 799063, 842658, 296670, 606070, 644449, 424772, 672755 #### [facility] [address] [place] [address] Drafter Geological: Aung Alexander MD Platelet 346 x10 Normal 150-450 [facility] Comment on above: Performed By: #### 9 551082, 771645, 059614, 812420, 818755, 592717, 385625 #### [facility] [address] [place] [address] Drafter Geological: Aung Alexander MD Platelet mean volume (Bld) [Entitic vol] 8.8 fL Normal 7.4-10.4 [facility] Comment on above: Performed By: #### 9 729777, 741675, 597749, 338648, 012955, 098188, 559338 #### [facility] [address] [place] [address] Drafter Geological: Aung Alexander MD RBC 4.70 x10 Normal 4.20-5.40 [facility] Comment on above: Result Comment: Note : RBC morphology is normal unless otherwise stated. Evaluation performed only if differential is requested. Performed By: #### 9 809284, 628144, 739283, 096902, 386892, 827940, 418320 #### [facility] [address] [place] [address] Drafter Geological: Aung Alexander MD WBC 11.7 x10 High 4.5-11.0 [facility] Comment on above: Performed By: #### 9 814906, 870378, 510139, 782998, 907867, 712151, 539086 #### [facility] [address] [place] [address] Drafter Geological: Aung Alexander MD COMPMETAon 03-06-2023 Albumin [Mass/Vol] 3.7 g/dL Normal 3.4-5.0 [facility] Comment on above: Order Comment: Order ed on Fin# [id number] Performed By: #### 9 740290, 086589, 755541, 285648, 678680, 500215, 798784 #### [facility] [address] [place] [address] Drafter Geological: Aung Alexander MD Albumin/Globulin [Mass ratio] 1.2 {ratio} Normal [facility] Comment on above: Order Comment: Order ed on Fin# [id number] Performed By: #### 9 261978, 609673, 807323, 463490, 611847, 831465, 454461 #### [facility] [address] [place] [phone] Drafter Geological: Aung Alexander MD Alk Phos 94 unit/L Normal 45-117 [facility] Comment on above: Order Comment: Order ed on Fin# [id number] Performed By: #### 9 521993, 430823, 539760, 777970, 795543, 884498, 196262 #### [facility] [address] [place] [address] Drafter Geological: Aung Alexander MD Bilirubin [Mass/Vol] 0.20 mg/dL Low 0.30-1.20 [facility] Comment on above: Order Comment: Order ed on Fin# [id number] Result Comment: Use of this assay is not recommended for patients undergoing treatment with eltrombopag due to the potential for falsely elevated results. Performed By: #### 9 990697, 198865, 484192, 702383, 349117, 467055, 040655 #### [facility] [address] [place] [address] Drafter Geological: Aung Alexander MD Calcium [Mass/Vol] 9.7 mg/dL Normal 8.7-10.4 [facility] Comment on above: Order Comment: Order ed on Fin# [id number] Performed By: #### 9 410142, 837690, 870048, 705562, 675116, 058464, 102484 #### [facility] [address] [place] [address] Drafter Geological: Aung Alexander MD Chloride [Moles/Vol] 105 mmol/L Normal 98-107 [facility] Comment on above: Order Comment: Order ed on Fin# [id number] Performed By: #### 9 247057, 004763, 507843, 037428, 936101, 589096, 219507 #### [facility] [address] [place] [address] Drafter Geological: Aung Alexander MD CO2 [Moles/Vol] 25.0 mmol/L Normal 20.0-31.0 [facility] Comment on above: Order Comment: Order ed on Fin# [id number] Performed By: #### 9 759832, 018848, 883706, 708485, 107222, 000241, 052131 #### [facility] [address] [place], [place] [address] Drafter Geological: Aung Alexander MD Creatinine [Mass/Vol] 0.8 mg/dL Normal 0.5-0.8 [facility] Comment on above: Order Comment: Order ed on Fin# [id number] Performed By: #### 9 233701, 248231, 736534, 967667, 193769, 565191, 952125 #### [facility] [address] [place], [place] [address] Drafter Geological: Aung Alexander MD GFR AA >60 Normal [facility] Comment on above: Order Comment: Order ed on Fin# [id number] Result Comment: Afri can Omani GFR Calc Medical judgement is necessary to [...] for drug dosing. Performed By: #### 9 799624, 254580, 181616, 403507, 488068, 411955, 776050 #### [facility] [address] [place] [address] Drafter Geological: Aung Alexander MD Globulin (S) [Mass/Vol] 3.1 g/dL Normal [facility] Comment on above: Order Comment: Order ed on Fin# [id number] Performed By: #### 9 510433, 443824, 156908, 484087, 771225, 283780, 901804 #### [facility] [address] [place] [address] Drafter Geological: Aung Alexander MD Glomerular Filtration Rate >60 Normal [facility] Comment on above: Order Comment: Order ed on Fin# [id number] Result Comment: Non- GFR Calc Medical judgement [...] for drug dosing. Performed By: #### 9 961393, 771237, 818081, 054004, 531578, 908662, 030604 #### [facility] [address] [place] [address] Drafter Geological: Aung Alexander MD Glucose [Mass/Vol] 92 mg/dL Normal 74-106 [facility] Comment on above: Order Comment: Order ed on Fin# [id number] Performed By: #### 9 348831, 393413, 034996, 307427, 571238, 985939, 080488 #### [facility] [address] [place] [address] Drafter Geological: Aung Alexander MD GOT 19 unit/L Normal 15-37 [facility] Comment on above: Order Comment: Order ed on Fin# [id number] Performed By: #### 9 591932, 480260, 907249, 774290, 497660, 961468, 529725 #### [facility] [address] [place] [address] Drafter Geological: Aung Alexander MD GPT 19 unit/L Normal 10-49 [facility] Comment on above: Order Comment: Order ed on Fin# [id number] Performed By: #### 9 988769, 320102, 667992, 001093, 148934, 138344, 383771 #### [facility] [address] [place] [address] Drafter Geological: Aung Alexander MD Osmolality [Osmolality] 280 mosm/kg Normal 275-295 [facility] Comment on above: Order Comment: Order ed on Fin# [id number] Performed By: #### 9 569267, 329987, 938214, 531263, 600330, 064223, 120726 #### [facility] [address] [place] [address] Drafter Geological: Aung Alexander MD Potassium [Moles/Vol] 4.6 mmol/L Normal 3.5-5.1 [facility] Comment on above: Order Comment: Order ed on Fin# [id number] Performed By: #### 9 712066, 955266, 156320, 507557, 666601, 250865, 130462 #### [facility] [address] [place] [address] Drafter Geological: Aung Alexander MD Protein [Mass/Vol] 6.8 g/dL Normal 5.7-8.2 [facility] Comment on above: Order Comment: Order ed on Fin# [id number] Result Comment: Tota l Protein results may be increased in patients receiving dextran as a blood volume emergency spill response technician Performed By: #### 9 868953, 307906, 721696, 530097, 032120, 374396, 385207 #### [facility] [address] [place] [address] Drafter Geological: Aung Alexander MD Sodium [Moles/Vol] 138 mmol/L Normal 135-145 [facility] Comment on above: Order Comment: Order ed on Fin# [id number] Performed By: #### 9 021299, 937455, 593635, 643669, 996642, 393113, 691478 #### [facility] [address] [place] [address] [id number] Drafter Geological: Aung Alexander MD Urea nitrogen [Mass/Vol] 25 mg/dL High 9- [facility] Comment on above: Order Comment: Order ed on Fin# [id number] Result Comment: - Ve nipuncture should occur prior to N-Acetyl Cysteine (NAC) or Metamizole (Sulpyrine) administration due to the potential for falsely depressed results. - Blood samples from some patients with monoclonal gammopathies may produce falsely elevated results Performed By: #### 9 944432, 414549, 570006, 132666, 789453, 342850, 649460 #### [facility] [address] [place] [id number] Drafter Geological: Aung Alexander MD Urea nitrogen/Creatinin e [Mass ratio] 31.2 mg/mg Normal [facility] Comment on above: Order Comment: Order ed on Fin# [id number] Performed By: #### 9 626755, 864031, 937652, 039898, 025191, 172185, 320394 #### [facility] [address] [place] [phone] Drafter Geological: Aung Alexander MD Comprehensive Intake - Baria [...] in, 169 cm) Body Mass Index Measured Pakistani : 45.62 kg/m2 BSA Pakistani : 2.47 m2 [place] Body Weight : 60.531 kg Sari Payan [...] Payan MA - 03/06/2023 11:02 EST Normal [facility] FOLATEon 03-06-2023 FOLATE 15.2 ng/mL Normal 5.4-17.5 [facility] Comment on above: Order Comment: Order ed on Fin# [id number] Result Comment: Meth otrexate and leucovorin interfere with folate measurement because these drugs cross-react with folate binding proteins. Performed By: #### 9 971984, 036104, 392588, 846974, 551310, 810467, 421105 #### [facility] [address] [place] [address] Drafter Geological: Aung Alexander MD IRON GROUPon 03-06-2023 Iron [Mass/Vol] 92 ug/dL Normal 50-170 [facility] Comment on above: Order Comment: Order ed on Fin# [id number] Result Comment: Resu lts may be inaccurate if performed within 14 days of IV iron dextran administration. Performed By: #### 9 354339, 759858, 542156, 396429, 491900, 513973, 072243 #### [facility] [address] [place] [address] Drafter Geological: Aung Alexander MD Saturation 29.8 % Normal 20.0-50.0 [facility] Comment on above: Order Comment: Order ed on Fin# [id number] Performed By: #### 9 422539, 373100, 747218, 908878, 044708, 715168, 493717 #### [facility] [address] [place] [address] Drafter Geological: Aung Alexander MD TIBC 309 ug/ml Normal 250-425 [facility] Comment on above: Order Comment: Order ed on Fin# [id number] Result Comment: Resu lts may be inaccurate if performed within 14 days of IV iron dextran administration. Performed By: #### 9 106850, 962880, 184694, 962039, 207039, 587311, 128114 #### [facility] [address] [place] [address] Drafter Geological: Aung Alexander MD TSHon 03-06-2023 TSH Qn 1.73 m[IU]/L Normal 0.55-4.78 [facility] Comment on above: Order Comment: Order ed on Fin# [id number] Result Comment: - Do not use samples [...] Reference: [email or web address] (11/2022) Performed By: #### 9 418137, 654167, 503461, 962286, 919170, 547757, 153531 #### [facility] [address] [place] [address] Drafter Geological: Aung Alexander MD VIT B12 LEVELon 03-06-2023 Cobalamin (Vitamin B12) [Mass/Vol] 694 pg/mL Normal 211-911 [facility] Comment on above: Order Comment: Order ed on Fin# [id number] Performed By: #### 9 251713, 876976, 154113, 279493, 708996, 649858, 120791 #### [facility] [address] [place] [address] Drafter Geological: Aung Alexander MD VIT D 25 LEVELon 03-06-2023 Vit D 25 34 ng/mL Normal [facility] Comment on above: Order Comment: Order ed on Fin# [id number] Result Comment: Less than 20 ng/mL Deficient 20 ? 30 ng/mL Insufficient 30 ? 100 ng/mL Sufficiency Greater than 100 ng/mL Potential Toxicity Performed By: #### 9 843804, 244000, 027683, 065602, 132164, 005906, 664434 #### [facility] [address] [place] [address] Drafter Geological: MD Santiago Mai 05-01-2022 JASMINE Telephone ([facility]) -------- BREE DALEY ([id number]) 1965 F Date Time Provider Department 05/01/22 [...] gel APPLY TO AFFECTED AREA EVERY DAY [id number] - lisinopril (ZESTRIL, PRINIVIL) 20 mg tablet [...] [B37.9] 01/17/2021 Uncontrolled type 2 diabetes mellitus [[id number]] 04/02/2017 Prescriptions ordered this encounter Disp Refills Start End TRADJENTA 5 MG TABLET 90 t* 0 05/01/2022 05/01/2023 Route: ORAL Sig: Take 1 tablet by mouth once daily. Medications Discontinued During This Encounter Prescriptions - SITagliptin (JANUVIA) 100 mg tablet (Discontinued) Take 1 tablet by mouth once daily. Encounter Status:Closed by VINCENT BARRERA on 05/01/22 [facility] Gabriel 01-10-2022 [facility] Office Visit ([facility] ) -------- THUYBREE ([id number]) 1965 F Date Time Provider Department 01/10/22 10:45 AM JASMIN SANTOYO [facility] During your visit today, we recorded the following information about you: Temperature Pulse Respiration Blood pressure 97.9 degrees 106/minute 18/minute 122/80 Weight 173.7 kg Jasmin Santoyo APRN.CARPENTER INSPECTOR 01/10/2022 10:48 AM Signed Subjective The history is provided by the patient. No certified court/medical interpreter was used. CORNELIO Bree Daley is a [...] have confirmed and edited as necessary, the [facility] Review of Systems Constitutional: Positive for [...] normal. Nirmatrelvir/Ritonavir (Paxlovid) Eligibility and Patient Discussion [facility] Formulary Restriction Criteria: Adult outpatients 18 [...] I have (more content not included)... Normal [facility] Santiago 11-01-2021 HIRAN Telephone ([employer]) -------- BREE DALEY ([id number]) 1965 F Date Time Provider Department 9/27/22 [...] gel APPLY TO AFFECTED AREA EVERY DAY [id number] - DULoxetine (CYMBALTA) 30 mg capsule Take [...] [B37.9] 01/17/2021 Uncontrolled type 2 diabetes mellitus [[id number]] 04/02/2017 Prescriptions ordered this encounter Disp Refills [...] Encounter Status:Closed by ISABEL JARA on 11/02/21 [facility] Comprehensive metabolic 2000 panelon 10-31-2021 Albumin [Mass/Vol] 4.1 g/dL Normal 3.9-4.9 [facility] Comment on above: Order Comment: Speci men Type: BLOOD SPECIMEN Ordering Facility: [facility] Address: [address] [place] [address] [place] [address] Performed By: #### 2 4323-8 #### [facility] [place] CLIA [id number] [address] [place] [address] [place] ALP [Catalytic activity/Vol] 113 U/L Normal 34-123 [facility] Comment on above: Order Comment: Speci men Type: BLOOD SPECIMEN Ordering Facility: [facility] Address: [address] [place] [address] Performed By: #### 2 4323-8 #### [facility] CLIA [id number] [address] [place] [address] [place] ALT [Catalytic activity/Vol] 32 U/L Normal 7-38 [facility] Comment on above: Order Comment: Speci men Type: BLOOD SPECIMEN Ordering Facility: [facility] Address: [address] [place] [address] Performed By: #### 2 4323-8 #### [facility] CLIA [id number] [address] [place] [address] [place] Anion gap [Moles/Vol] 12 mmol/L Normal 9-18 [facility] Comment on above: Order Comment: Speci men Type: BLOOD SPECIMEN Ordering Facility: [facility] Address: [address] [place] [address] Performed By: #### 2 4323-8 #### [facility] CLIA [id number] [address] [place] [address] [place] AST [Catalytic activity/Vol] 22 U/L Normal 13-35 [facility] Comment on above: Order Comment: Speci men Type: BLOOD SPECIMEN Ordering Facility: [facility] Address: [address] [place], [place] [address] Performed By: #### 2 4323-8 #### [facility] CLIA [id number] [address] [place] [address] [place] Bilirubin [Mass/Vol] 0.2 mg/dL Normal 0.2-1.3 [facility] Comment on above: Order Comment: Speci men Type: BLOOD SPECIMEN Ordering Facility: [facility] Address: [facility] [address] Performed By: #### 2 4323-8 #### [facility] CLIA [id number] [address] [place] [address] [place] Calcium [Mass/Vol] 9.6 mg/dL Normal 8.5-10.2 [facility] Comment on above: Order Comment: Speci men Type: BLOOD SPECIMEN Ordering Facility: [facility] Address: [address] [place], [place] [address] Performed By: #### 2 4323-8 #### [facility] CLIA [id number] [address] [place] [address] [place] Chloride [Moles/Vol] 97 mmol/L Normal 97-105 [facility] Comment on above: Order Comment: Speci men Type: BLOOD SPECIMEN Ordering Facility: [facility] Address: [address] [place], [place] [address] Performed By: #### 2 4323-8 #### [facility] CLIA [id number] [address] [place] [address] [place] CO2 [Moles/Vol] 23 mmol/L Normal 22-30 [facility] Comment on above: Order Comment: Speci men Type: BLOOD SPECIMEN Ordering Facility: [facility] Address: [address] Performed By: #### 2 4323-8 #### [facility] CLIA [id number] [address] [place] [address] [place] Creatinine [Mass/Vol] 0.73 mg/dL Normal 0.58-0.96 [facility] Comment on above: Order Comment: Speci men Type: BLOOD SPECIMEN Ordering Facility: [facility] Address: [address] Performed By: #### 2 4323-8 #### [facility] [id number] [address] [place] [address] [place] ESTIMATED GLOMERULAR FILTRATION RATE 97 mL/min/1.73m??? Normal >=60 [facility] Comment on above: Order Comment: Ponce armendariz Type: BLOOD SPECIMEN Ordering Facility: [facility] Address: [address] [place] [address] Result Comment: Rosetta mated Glomerular Filtration Rate [...] GFR. Performed By: #### 2 4323-8 #### [facility] [id number] [address] [place] [address] [place] Glucose [Mass/Vol] 250 mg/dL High 74-99 [facility] Comment on above: Order Comment: Ponce armendariz Type: BLOOD SPECIMEN Ordering Facility: [facility] Address: [address] [place] [address] Result Comment: The [place] Diabetes Association (ADA) provides guidance for cutoff [...] Standards of Medical Care in Diabetes 2016, [place] Diabetes Association. Diabetes Care. 2016.39(Suppl 1). Performed By: #### 2 4323-8 #### [facility] CLIA [id number] [address] [place] [address] [place] Potassium [Moles/Vol] 4.3 mmol/L Normal 3.7-5.1 [facility] Comment on above: Order Comment: Speci men Type: BLOOD SPECIMEN Ordering Facility: [facility] Address: [address] [place] [address] Performed By: #### 2 4323-8 #### [facility] CLIA [id number] [address] [place] [address] [place] Protein [Mass/Vol] 6.8 g/dL Normal 6.3-8.0 [facility] Comment on above: Order Comment: Speci men Type: BLOOD SPECIMEN Ordering Facility: [facility] Address: [address] [place] [address] Performed By: #### 2 4323-8 #### [facility] [id number] [address] [place] [address] [place] Sodium [Moles/Vol] 132 mmol/L Low 136-144 [facility] Comment on above: Order Comment: Speci men Type: BLOOD SPECIMEN Ordering Facility: [facility] Address: [address] [place] [address] Performed By: #### 2 4323-8 #### [facility] [id number] [address] [place] [address] [place] Urea nitrogen [Mass/Vol] 25 mg/dL High 7-21 [facility] Comment on above: Order Comment: Speci men Type: BLOOD SPECIMEN Ordering Facility: [facility] Address: [address] [place] [address] Performed By: #### 2 4323-8 #### [facility] CLIA [id number] [address] [place] [address] [place] HbA1c (Bld)on 10-31-2021 Average glucose Estimated from glycated hemoglobin (Bld) [Mass/Vol] 197 mg/dL Normal [facility] Comment on above: Order Comment: Ponce armendariz Type: BLOOD SPECIMEN Ordering Facility: [facility] Address: [address] [place] [address] Result Comment: eAG: (Estimated average glucose) is a calculated value from HgbA1c and is leather goods sales representative of the average blood glucose level in the last 2-3 month period. Performed By: #### 5 5454-3 #### [facility] CLIA [id number] [address] [place] [address] [place] HbA1c (Bld) [Mass fraction] 8.5 % High 4.3-5.6 [facility] Comment on above: Order Comment: Ponce armendariz Type: BLOOD SPECIMEN Ordering Facility: [facility] Address: [address] [place] [address] Result Comment: Amer ican Diabetes Association guidelines indicate that patients with HgbA1c in the range 5.7-6.4% are at increased risk for development of diabetes, and intervention by lifestyle modification may be beneficial. HgbA1c greater or equal to 6.5% is considered diagnostic of diabetes. Performed By: #### 5 5454-3 #### [facility] CLIA [id number] [address] [place] [address] [place] Lipid 1996 panelon 2 Cholesterol [Mass/Vol] 231 mg/dL High <200 [facility] Comment on above: Order Comment: Ponce armendariz Type: BLOOD SPECIMEN Ordering Facility: [facility] Address: [address] [place] [address] Result Comment: <200 mg/dL, Desirable 200-239 mg/dL, Borderline high >239 mg/dL, High Performed By: #### 2 4331-1 #### [facility] CLIA [id number] [address] [place] [address] [place] [facility] CLIA [id number] [address] [place] [address] [place] Cholesterol in HDL [Mass/Vol] 45 mg/dL Normal >39 [facility] Comment on above: Order Comment: Ponce armendariz Type: BLOOD SPECIMEN Ordering Facility: [facility] Address: [address] [place] [address] Result Comment: 40-5 9 mg/dL, Acceptable >59 mg/dL, High: Negative risk factor for coronary heart disease <40 mg/dL, Low: Positive risk factor for coronary heart disease Performed By: #### 2 4331-1 #### [facility] CLIA [id number] [address] [place] [address] CLIA [id number] [address] [place] [address] [place] Cholesterol in LDL [Mass/Vol] 130 mg/dL High <100 [facility] Comment on above: Order Comment: Ponce armendariz Type: BLOOD SPECIMEN Ordering Facility: [facility] Address: [address] [place], [place] [address] Result Comment: <100 mg/dL, Optimal 100-129 mg/dL, Near optimal/above optimal 130-159 mg/dL, Borderline high 160-189 mg/dL, High >189 mg/dL, Very high Secondary prevention optimal LDL Cholesterol levels are recommended to be < 70 mg/dL Performed By: #### 2 4331-1 #### [facility] CLIA [id number] [address] [place] [address] CLIA [id number] [address] [place] [address] [place] Cholesterol in LDL/Cholesterol in HDL [Mass ratio] 2.89 {ratio} High <2.54 [facility] Comment on above: Order Comment: Ponce armendariz Type: BLOOD SPECIMEN Ordering Facility: [facility] Address: [address] [place] [address] Result Comment: Reflaith adamsce: 1. National Cholesterol Education Program ATP III Guideline At-A-Glance Quick Desk Reference: National Heart, Lung, and Blood [place]. National Institutes of Health. 2001: NIH Publication No. 01-3305. 2. An International Atherosclerosis Society position paper: global recommendations for the management of dyslipidemia: executive summary, Atherosclerosis. 2014: 232(2):410-413. Performed By: #### 2 4331-1 #### [facility] CLIA [id number] [address] [place] [address] CLIA [id number] [address] [place] [address] [place] Cholesterol in VLDL [Mass/Vol] 56 mg/dL High <30 [facility] Comment on above: Order Comment: Ponce armendariz Type: BLOOD SPECIMEN Ordering Facility: [facility] Address: [address] [place] [address] Performed By: #### 2 4331-1 #### [facility] CLIA [id number] [address] [place] [address] CLIA [id number] [address] [place] [address] [place] Cholesterol non HDL [Mass/Vol] 186 mg/dL High <130 [facility] Comment on above: Order Comment: Ponce armendariz Type: BLOOD SPECIMEN Ordering Facility: [facility] Address: [address] [place] [address] Result Comment: <130 mg/dL, Optimal 130-159 mg/dL, Near optimal/above optimal 160-189 mg/dL, Borderline high 190-219 mg/dL, High >219 mg/dL, Very high Secondary prevention optimal non HDL Cholesterol levels are recommended to be <100 mg/dL Performed By: #### 2 4331-1 #### [facility] CLIA [id number] [address] [place] [address] [place] [facility] CLIA [id number] [address] [place] [address] [place] Cholesterol.total/ Cholesterol in HDL [Mass ratio] 5.13 {ratio} High <5.10 [facility] Comment on above: Order Comment: Speci men Type: BLOOD SPECIMEN Ordering Facility: [facility] Address: [address] [place], [place] [address] Performed By: #### 2 4331-1 #### [facility] CLIA [id number] [address] [place] [address] OF [facility] CLIA [id number] [address] [place] [address] [place] FASTING TIME 12 hrs Normal [facility] Comment on above: Order Comment: Speci men Type: BLOOD SPECIMEN Ordering Facility: [facility] Address: [address] [place] [address] Performed By: #### 2 4331-1 #### [facility] CLIA [id number] [address] [place] [address] STATES OF [facility] CLIA [id number] [address] [place] [address] [place] Triglyceride [Mass/Vol] 278 mg/dL High <150 [facility] Comment on above: Order Comment: Speci men Type: BLOOD SPECIMEN Ordering Facility: [facility] Address: [address] [place] [address] Result Comment: <150 mg/dL, Normal 150-199 mg/dL, Borderline high 200-499 mg/dL, High >499 mg/dL, Very high Performed By: #### 2 4331-1 #### [facility] CLIA [id number] [address] [place], [place] [address]IA [id number] [address] [place] [address] [place] CNOVon 09-07-2021 CNOV Office Visit ([facility] ) -------- BREE DALEY ([id number]) 1965 F Date Time Provider Department 09/07/21 4:50 PM VINCENT BARRERA During your visit today, we recorded the following information about you: Temperature Pulse Respiration Blood pressure 96.8 degrees 80/minute 16/minute 130/90 Weight Height 176.4 kg 1.676 m Vincent Barrera MD 09/07/2021 5:05 PM Signed This note was created using Mediastream. Subjective Bree Daley is a 55 year [...] PM Signed This note was created using Mediastream. 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 Normal [facility] DIGITAL MAMMO SCREENINGon DIGITAL MAMMO SCREENING BILATERAL DIGITAL SCREENING MAMMOGRAM WITH CAD: 07/27/2020 Ordering Physician: Vincent Barrera M.D. CLINICAL: Screening. Comparison is made to exams dated: 08/29/2017 mammogram - [facility] and 05/18/2009 mammogram - [facility]. There are scattered fibroglandular elements in both [...] clinical grounds. Gaviota Wilson M.D. ear/penrad:07/27/2020 14:56:57 Cobbler Apprentice: Lona SIMMONS(Cornel)(M), [facility] letter sent: Mammography Normal BI-RADS: 1 Negative Reported By: GAVIOTA WILSON M.D. Signed By: GAVIOTA WILSON M.D. [facility] ENDOSCOPY DC INSTRUCTIONSon 07-19-2020 ENDOSCOPY DC INSTRUCTIONS [...] . Rachael Quinones, 07/19/2020 12:12:39 PM Normal [facility] ENDOSCOPY REPORTon ENDOSCOPY REPORT [facility] Endoscopy Patient Name: Bree Daley Procedure Date: [...] Record Forms for possible GI photos Normal [facility] GLUCOSE METERon 07-19-2020 Glucose [Mass/Vol] 141 mg/dL High 70-99 [facility] Comment on above: Result Comment: Fast ing GLUCOSE reference range has been updated per (ADA) [place] Diabetes Association's recommendation. 04/30/2018 Performed By: #### L 600.59964, L600.49591 #### Test performed at: [place] [address] SURGon 07-19-2020 SURG Normal [facility] Comment on above: Result Comment: RUN DATE: 07/20/20 [facility] LAB *LIVE* PAGE 1RUN TIME: 1538 Specimen InquiryRUN USER: [employer] Name: BREE DALEY : 65 Sex:F Attend Dr: Rachael Quinones [facility]#: [id number] Unit#: [id number] Status: REG CLI Location: G.END Received: 07/19/20 Status: MANUEL Pettit#: [id number]#: [id number] Collected: 07/19/20-1199 [facility] Dr: Rachael Quinones MDTISSUES: Abdi FARMER ANTRUM + BODY MICROSCOPIC EXAM: One H&E-stained slide and one Giemsa-stained slide are examined. DIAGNOSIS: ANTRUM AND BODY OF STOMACH, ENDOSCOPIC BIOPSY: - MODERATE REACTIVE GASTRITIS/GASTROPATHY - NO H. PYLORI ORGANISMS ARE IDENTIFIED ON SPECIAL STAIN Signed Signature on File JOY XIONG 07/20/[address] [facility] Name[facility] Hosp Num: [id number] [employer] of Age / Sex: 54/F [facility] Physician: [place] [address] [place] [address] Location: ENDOSCOPY END OF REPORT Performed By: #### P SURG ####Test performed at: [place] [address] H PYLORI ABon 07-04-2020 H PYLORI AB 5.31 Critically abnormal 0.00-0.79 [facility] Comment on above: Result Comment: INFC E Result Units: Index Value Negative <0.80 Equivocal 0.80 - 0.89 Positive >0.89 Performed At: [facility] [address] [id number] Haylee Juárez PhD [id number] Performed By: #### L 750.50776 #### Test performed at: [facility] [id number] [address] [place] [id number] GLYCO HEMOon 07-03-2020 HbA1c (Bld) [Mass fraction] 6.9 % Normal [facility] Comment on above: Result Comment: Lamont novoa Diagnosis HbA1c (%) --------- Diabetic > 6.4 Prediabetes 5.7-6.4 Normal < 5.7 Performed By: #### L 500.03585 #### Test performed at: [place] [address] VIT D 25-OHon 07-03-2020 VIT D 25-OH 11.36 ng/mL Low 30-100 [facility] Comment on above: Result Comment: ADUL TS: Vitamin D Status Range ----- Deficiency <20 ng/mL Insufficiency 20-<30 ng/mL Sufficiency 30-100 ng/mL Toxicity >100 ng/mL ~\R\~\R\~\R\~\R\~\R\~\R\~\R\~\R\~\R\~\R\~\R\~\R\~\R\~\R\~\R\~\R\~ PEDIATRICS: Vitamin D Status Range ----- Deficiency <15 ng/mL Insufficiency 15-<20 ng/mL Sufficiency 20-100 ng/mL Toxicity >100 ng/mL Certified procedure of the [facility] Vitamin D Standardization Certification Program (VDSCP) Performed By: #### L 600.21075, L600.39793 #### Test performed at: [address] [address] B12on 07-02-2020 Cobalamin (Vitamin B12) [Mass/Vol] 366 pg/mL Normal 193-986 [facility] Comment on above: Order Comment: Is pa tient fasting? UNKNOWN Performed By: #### L 600.45716, L600.88011 #### Test performed at: [address] [address] CBC W/DIFFon 07-02-2020 BASO ABS 0.1 K/uL Normal 0.0-0.2 [facility] Comment on above: Performed By: #### L 600.23981, L600.47868 #### Test performed at: [address] [address] Basophils/100 WBC (Bld) 1.5 % Normal [facility] Comment on above: Performed By: #### L 600.20081, L600.02492 #### Test performed at: [address] [address] EOS ABS 0.5 K/uL Normal 0.0-0.5 [facility] Comment on above: Performed By: #### L 600.90126, L600.80949 #### Test performed at: [address] [address] Eosinophils/100 WBC (Bld) 5.4 % Normal [facility] Comment on above: Performed By: #### L 600.19270, L600.35418 #### Test performed at: [address] [address] Erythrocyte distribution width (RBC) [Ratio] 14.2 % Normal 11.5-14.5 [facility] Comment on above: Performed By: #### L 600.52708, L600.51854 #### Test performed at: [address] [address] Hematocrit (Bld) [Volume fraction] 40.5 % Normal 36.0-48.0 [facility] Comment on above: Performed By: #### L 600.26789, L600.11057 #### Test performed at: [address] [address] Hemoglobin (Bld) [Mass/Vol] 13.3 g/dL Normal 12.0-15.0 [facility] Comment on above: Performed By: #### L 600.22461, L600.81106 #### Test performed at: [place] [id number] IG % 0.4 % Normal [facility] Comment on above: Performed By: #### L 600.87783, L600.69622 #### Test performed at: [address] [address] IG ABS 0.04 K/uL Normal 0-0.05 [facility] Comment on above: Performed By: #### L 600.05834, L600.82555 #### Test performed at: [address] [address] Lymphocytes (Bld) [#/Vol] 2.4 10*3/uL Normal 1.2-3.5 [facility] Comment on above: Performed By: #### L 600.60654, L600.35070 #### Test performed at: [address] [address] Lymphocytes/100 WBC (Bld) 25.6 % Normal [facility] Comment on above: Performed By: #### L 600.14062, L600.43248 #### Test performed at: [address] [address] MCH (RBC) [Entitic mass] 29.1 pg Normal 25.4-34.6 [facility] Comment on above: Performed By: #### L 600.09328, L600.56847 #### Test performed at: [address] [address] MCHC (RBC) [Mass/Vol] 32.8 g/dL Normal 31.5-36.5 [facility] Comment on above: Performed By: #### L 600.14317, L600.07053 #### Test performed at: [address] [address] MCV (RBC) [Entitic vol] 88.6 fL Normal 79.0-98.0 [facility] Comment on above: Performed By: #### L 600.07347, L600.52621 #### Test performed at: [address] [address] MONO ABS 0.7 K/uL Normal 0.0-1.0 [facility] Comment on above: Performed By: #### L 600.17771, L600.80136 #### Test performed at: [address] [address] Monocytes/100 WBC (Bld) 7.3 % Normal [facility] Comment on above: Performed By: #### L 600.64488, L600.97807 #### Test performed at: [address] [address] NEUTROPHIL ABS 5.6 K/uL Normal 1.4-6.6 [facility] Comment on above: Performed By: #### L 600.44274, L600.54860 #### Test performed at: [address] [address] Neutrophils/100 WBC (Bld) 59.8 % Normal [facility] Comment on above: Performed By: #### L 600.37212, L600.06448 #### Test performed at: [address] [address] NRBC # 0.000 K/uL Normal 0-0.012 [facility] Comment on above: Performed By: #### L 600.83909, L600.83202 #### Test performed at: [address] [address] NRBC % 0.0 /100 WBC Normal 0-0.2 [facility] Comment on above: Performed By: #### L 600.66678, L600.86522 #### Test performed at: [address] [address] Platelet mean volume (Bld) [Entitic vol] 10.7 fL Normal 8.7-12.4 [facility] Comment on above: Performed By: #### L 600.15099, L600.04068 #### Test performed at: [address] [address] Platelets (Bld) [#/Vol] 321 10*3/uL Normal 140-440 [facility] Comment on above: Result Comment: Slide checked for clumps and fibrin. Performed By: #### L 600.14409, L600.40480 #### Test performed at: [address] [address] RBC (Bld) [#/Vol] 4.57 10*6/uL Normal 3.5-5.5 [facility] Comment on above: Performed By: #### L 600.87515, L600.62209 #### Test performed at: [address] [address] WBC (Bld) [#/Vol] 9.4 10*3/uL Normal 3.9-11.0 [facility] Comment on above: Performed By: #### L 600.42640, L600.40059 #### Test performed at: [address] [address] COMP META PANELon 07-02-2020 Albumin [Mass/Vol] 3.7 g/dL Normal 3.4-5.0 [facility] Comment on above: Order Comment: Is pa tient fasting? UNKNOWN Performed By: #### L 500.90400, L500.55606, L500.47529, L500.31937, L500.79831, L500.20981 #### Test performed at: [address] [address] ALK PHOS TOTAL 88 U/L Normal 45-117 [facility] Comment on above: Order Comment: Is pa tient fasting? UNKNOWN Performed By: #### L 500.69454, L500.89159, L500.17094, L500.71764, L500.99240, L500.20637 #### Test performed at: [address] [address] ALT [Catalytic activity/Vol] 48 U/L Normal 13-61 [facility] Comment on above: Order Comment: Is pa tient fasting? UNKNOWN Performed By: #### L 500.24885, L500.98973, L500.53517, L500.33719, L500.95501, L500.55392 #### Test performed at: [address] [address] AST [Catalytic activity/Vol] 28 U/L Normal 15-37 [facility] Comment on above: Order Comment: Is pa tient fasting? UNKNOWN Performed By: #### L 500.06160, L500.24873, L500.87882, L500.68025, L500.82125, L500.05345 #### Test performed at: [place] [address] [place] [address] BILI TOTAL 0.3 mg/dL Normal 0.2-1.0 [facility] Comment on above: Order Comment: Is pa tient fasting? UNKNOWN Performed By: #### L 500.37870, L500.13669, L500.78713, L500.26013, L500.81089, L500.13512 #### Test performed at: [address] [address] Calcium [Mass/Vol] 9.3 mg/dL Normal 8.5-10.1 [facility] Comment on above: Order Comment: Is pa tient fasting? UNKNOWN Performed By: #### L 500.41847, L500.53472, L500.90868, L500.89821, L500.47416, L500.73920 #### Test performed at: [address] [address] Chloride [Moles/Vol] 101 mmol/L Normal 98-107 [facility] Comment on above: Order Comment: Is pa tient fasting? UNKNOWN Performed By: #### L 500.76248, L500.33589, L500.83935, L500.66320, L500.42293, L500.01962 #### Test performed at: [address] [address] CO2 [Moles/Vol] 24 mmol/L Normal 21-32 [facility] Comment on above: Order Comment: Is pa tient fasting? UNKNOWN Performed By: #### L 500.65064, L500.87686, L500.06569, L500.21703, L500.70331, L500.91396 #### Test performed at: [address] [address] Creatinine [Mass/Vol] 0.843 mg/dL Normal 0.550-1.020 [facility] Comment on above: Order Comment: Is pa tient fasting? UNKNOWN Performed By: #### L 500.78904, L500.39341, L500.31602, L500.43014, L500.69607, L500.38920 #### Test performed at: [address] [address] Glucose [Mass/Vol] 118 mg/dL High 70-99 [facility] Comment on above: Order Comment: Is pa tient fasting? UNKNOWN Result Comment: Fast ing GLUCOSE reference range has been updated per (ADA) [place] [employer]'s recommendation. 04/30/2018 Performed By: #### L 500.70230, L500.30176, L500.39516, L500.77942, L500.03666, L500.83808 #### Test performed at: [address] [address] Potassium [Moles/Vol] 4.1 mmol/L Normal 3.5-5.1 [facility] Comment on above: Order Comment: Is pa tient fasting? UNKNOWN Performed By: #### L 500.43272, L500.09734, L500.58486, L500.08035, L500.11507, L500.41937 #### Test performed at: [address] [address] Protein [Mass/Vol] 7.2 g/dL Normal 6.4-8.2 [facility] Comment on above: Order Comment: Is pa tient fasting? UNKNOWN Performed By: #### L 500.80221, L500.16044, L500.53251, L500.18362, L500.49876, L500.04521 #### Test performed at: [address] [address] Sodium [Moles/Vol] 134 mmol/L Low 136-145 [facility] Comment on above: Order Comment: Is pa tient fasting? UNKNOWN Performed By: #### L 500.68003, L500.06281, L500.48140, L500.56217, L500.61106, L500.84729 #### Test performed at: [place] [id number] Urea nitrogen [Mass/Vol] 15 mg/dL Normal 7-18 [facility] Comment on above: Order Comment: Is pa tient fasting? UNKNOWN Performed By: #### L 500.20926, L500.30428, L500.23044, L500.80960, L500.39464, L500.27773 #### Test performed at: [place] [id number] GFR ESTIMATEon 07-02-2020 IF AMER > 60 Normal > 60 [facility] Comment on above: Order Comment: Is [...] for clinical interpretation. Performed By: #### L 500.06207, L500.09505, L500.73467, L500.37059, L500.35118, L500.38216 #### Test performed at: [address] [address] IF non-AFR AMER > 60 Normal > 60 [facility] Comment on above: Order Comment: Is pa tient fasting? UNKNOWN Performed By: #### L 500.77819, L500.18255, L500.64417, L500.38087, L500.87389, L500.44825 #### Test performed at: [place] [address] IRON PROF W/FERon 07-02-2020 FERR 26.4 ng/mL Normal 8-252 [facility] Comment on above: Order Comment: Is pa tient fasting? UNKNOWN Performed By: #### L 600.65088, L600.10258 #### Test performed at: [place] [id number] Iron [Mass/Vol] 82 ug/dL Normal 50-170 [facility] Comment on above: Order Comment: Is pa tient fasting? UNKNOWN Performed By: #### L 600.13752, L600.59342 #### Test performed at: [place] [address] IRON SAT 20 % Low 25-35 [facility] Comment on above: Order Comment: Is pa tient fasting? UNKNOWN Performed By: #### L 600.43680, L600.16951 #### Test performed at: [place] [id number] TIBC 404 ug/dL Normal 250-450 [facility] Comment on above: Order Comment: Is pa tient fasting? UNKNOWN Performed By: #### L 600.86193, L600.58632 #### Test performed at: [place] [id number] LIMIT UR TOXon 07-02-2020 UR AMPH Negative Normal Negative [facility] Comment on above: Result Comment: CUTO KE=2256 Performed By: #### L 600.24350, L600.31422 #### Test performed at: [place] [address] UR SANDI Negative Normal Negative [facility] Comment on above: Result Comment: CUTO LW=203 Performed By: #### L 600.34006, L600.30115 #### Test performed at: [place] [address]243[address] UR TOSHA Negative Normal Negative [facility] Comment on above: Result Comment: CUTO IM=249 Performed By: #### L 600.40318, L600.95692 #### Test performed at: [place] [address] [place], [place] [id number] UR BUPREN/NORBU Negative Normal Negative [facility] Comment on above: Result Comment: CUTO FF=10 Performed By: #### L 600.40085, L600.66513 #### Test performed at: [place] [address] UR ZIYAD/THC Negative Normal Negative [facility] Comment on above: Result Comment: CUTO FF=50 Performed By: #### L 600.73133, L600.14723 #### Test performed at: [place] [address] UR DAVID Negative Normal Negative [facility] Comment on above: Result Comment: CUTO QY=147 Performed By: #### L 600.84290, L600.32638 #### Test performed at: [place] [id number] UR ECSTASY Negative Normal Negative [facility] Comment on above: Result Comment: CUTO QJ=811 Performed By: #### L 600.41184, L600.80268 #### Test performed at: [place] [address]243[address] UR FENTANYL Negative Normal Negative [facility] Comment on above: Result Comment: CUTO BQ=0533 Performed By: #### L 600.32120, L600.06139 #### Test performed at: [place] [address] UR METH Negative Normal Negative [facility] Comment on above: Result Comment: CUTO UY=197 Performed By: #### L 600.12363, L600.82539 #### Test performed at: [place] [id number] UR OPIAT Negative Normal Negative [facility] Comment on above: Result Comment: CUTO UF=582 Performed By: #### L 600.89192, L600.98614 #### Test performed at: [place] [address] UR OXYCODONE Negative Normal Negative [facility] Comment on above: Result Comment: CUTO JF=770 Performed By: #### L 600.06469, L600.31309 #### Test performed at: [place] [address] UR PCP Negative Normal Negative [facility] Comment on above: Result Comment: CUTO FF=25 Performed By: #### L 600.47210, L600.36796 #### Test performed at: [place] [address] PH TOX 6.0 Normal 5.0-8.0 [facility] Comment on above: Performed By: #### L 600.15101, L600.75218 #### Test performed at: [place] [address] TOX COMMENT *PLEASE NOTE: Normal [facility] Comment on above: Result Comment: UNCO NFIRMED Toxicology results. For MEDICAL purposes only. Performed By: #### L 600.15664, L600.88399 #### Test performed at: [place] [id number] LIPID PROFILEon 07-02-2020 Cholesterol [Mass/Vol] 232 mg/dL High <200 [facility] Comment on above: Order Comment: Is pa tient fasting? UNKNOWN Result Comment: <200 mg/dL (Desirable) 200-240 mg/dL (Borderline) >240 mg/dL (High Risk) Performed By: #### L 500.35538, L500.92385, L500.82897, L500.96900, L500.89872, L500.29663 #### Test performed at: [facility] [address] [place], [place] [address] Cholesterol in HDL [Mass/Vol] 40 mg/dL Normal 40-60 [facility] Comment on above: Order Comment: Is pa tient fasting? UNKNOWN Performed By: #### L 500.10819, L500.13575, L500.60188, L500.91636, L500.17860, L500.66762 #### Test performed at: [facility] [address] [place], [place] [address] Cholesterol in LDL [Mass/Vol] 148 mg/dL High 60-130 [facility] Comment on above: Order Comment: Is pa tient fasting? UNKNOWN Result Comment: LDL BORDERLINE NORMAL 130-159 mg/dL Performed By: #### L 500.85352, L500.68325, L500.89528, L500.21827, L500.99973, L500.58747 #### Test performed at: [place] [address], [place] [address] Triglyceride [Mass/Vol] 274 mg/dL High <150 [facility] Comment on above: Order Comment: Is pa tient fasting? UNKNOWN Result Comment: <150 mg/dL (Normal) 150-199 mg/dL (Borderline) 200-499 mg/dL (High) >500 mg/dL (Very High) Performed By: #### L 500.18556, L500.86990, L500.38509, L500.46437, L500.43506, L500.72683 #### Test performed at: [place] [address], [place] [address] TSH ULTRA SENSon 07-02-2020 TSH ULTRA SENS 1.780 uIU/mL Normal 0.358-3.74 [facility] Comment on above: Order Comment: Is pa tient fasting? UNKNOWN Performed By: #### L 600.11355, L600.72399 #### Test performed at: [place] [id number] UR ETHANOL QTon 07-02-2020 UR ETHANOL QT < 3.0 Normal <10.0 [facility] Comment on above: Result Comment: UNCO NFIRMED Toxicology results. For MEDICAL purposes only. Performed By: #### L 600.75101, L600.03687 #### Test performed at: [place] [address] Final Surgical Pathology Rep [facility] 11-18-2019 Final Surgical Pathology Report . Pathology Reports Accession: Collected Date/Time: Received Date/Time: Pathologist: [id number] 11/14/2019 10:20 EDT 11/17/2019 09:01 EDT AL VALENTIN MD Final Surgical Pathology Report DIAGNOSIS: A) COLON, HEPATIC FLEXURE, POLYPECTOMY - TUBULAR ADENOMA. B) RIGHT AND LEFT COLON, BIOPSIES - NEGATIVE FOR COLITIS. COMMENT: [facility] - [id number] CLINICAL INFORMATION: Procedure: COLONOSCOPY WITH POLYPECTOMY, INJECTION [...] Electronically Signed by Pathology Report verified by [facility] Electronically signed by AL VALENTIN Sign out Date: 11/18/2019 16:30 Performing Lab: [facility], [address] [place] [address] ([place]) Comment on above: Performed By: #### S PFR #### [place] [address] Vital Signs Date Time Vital Sign Value Performing Clinician Isaías ward 01-10-2022 10:21-0500 Body temperature 97.9 [degF] Jasmin Natanael FINGER LIFT OPERATOR.CARPENTER INSPECTOR Work Phone: [facility] 01-10-2022 10:21-0500 Body weight 173.73 kg Jasmin Natanael FINGER LIFT OPERATOR.CARPENTER INSPECTOR Work Phone: [facility] 01-10-2022 10:21-0500 Diastolic blood pressure 80 mm[Hg] Jasmin Natanael FINGER LIFT OPERATOR.CARPENTER INSPECTOR Work Phone: [facility] 01-10-2022 10:21-0500 Heart rate 106 /min Jasmin Natanael FINGER LIFT OPERATOR.CARPENTER INSPECTOR Work Phone: [facility] 01-10-2022 10:21-0500 Respiratory rate 18 /min Jasmin Natanael FINGER LIFT OPERATOR.CARPENTER INSPECTOR Work Phone: [facility] 01-10-2022 10:21-0500 SaO2% (BldA) [Mass fraction] 98 % Jasmin Natanael FINGER LIFT OPERATOR.CARPENTER INSPECTOR Work Phone: [facility] 01-10-2022 10:21-0500 Systolic blood pressure 122 mm[Hg] Jasmin Natanael FINGER LIFT OPERATOR.CARPENTER INSPECTOR Work Phone: [facility] 09-07-2021 15:40-0400 Body height 167.6 cm Vincent Barrera MD Work Phone: [facility] 09-07-2021 15:40-0400 Body temperature 96.8 [degF] Vincent Barrera MD Work Phone: [facility] 09-07-2021 15:40-0400 Body weight 176.45 kg Vincent Barrera MD Work Phone: [facility] 09-07-2021 15:40-0400 Diastolic blood pressure 90 mm[Hg] Vincent Barrera MD Work Phone: [facility] 09-07-2021 15:40-0400 Heart rate 80 /min Vincent Barrera MD Work Phone: [facility] 09-07-2021 15:40-0400 Respiratory rate 16 /min Vincent Barrera MD Work Phone: [facility] 09-07-2021 15:40-0400 SaO2% (BldA) [Mass fraction] 96 % Vincent Barrera MD Work Phone: [facility] 09-07-2021 15:40-0400 Systolic blood pressure 130 mm[Hg] Vincent Barrera MD Work Phone: [facility] Encounters Encounter Date Encounter Type Care Provider Facility Start: 09-05-2023 End: 09-05-2023 ambulatory EMILY LORRAINE CARPENTER INSPECTOR Facility:[facility] Start: 07-22-2023 End: 07-22-2023 ambulatory EMILY LORRAINE CARPENTER INSPECTOR Facility:[facility] Start: 06-07-2023 End: 06-07-2023 ambulatory EMILY LORRAINE CARPENTER INSPECTOR Facility:[facility] Start: 03-06-2023 End: 03-06-2023 ambulatory CHRISTINA K PRISTAS DO Facility:[facility] Start: 03-06-2023 End: 03-06-2023 ambulatory CHRISTINA K PRISTAS DO Facility:[facility] Start: 01-19-2023 End: 01-19-2023 ambulatory EMILY LORRAINE CARPENTER INSPECTOR Facility:[facility] Start: 11-20-2022 ambulatory EMILY LORRAINE CARPENTER INSPECTOR Facilit y:[facility] Start: 11-18-2022 End: 11-18-2022 ambulatory EMILY LORRAINE CARPENTER INSPECTOR Facility:[facility] Start: 05-01-2022 Telephone encounter Vincent Barrera MD Work Phone: [facility] Comment on above: Orders Start: 04-07-2022 Refill Vincent Gomez MD Work Phone: [facility] Comment on above: Refill Request Start: 04-03-2022 Patient encounter procedure [facility] Provider [facility] Department Start: 02-15-2022 Refill Vincent Gomez MD Work Phone: [facility] Comment on above: Refill Request Start: 01-20-2022 Refill Ana Mcfadden i, APRN.CARPENTER INSPECTOR Work Phone: [facility] Comment on above: Refill Request Start: 01-10-2022 End: 01-10-2022 ambulatory VINCENT NUNOELIUD BARRERA Facility:[facility] Start: 01-10-2022 End: 01-10-2022 Patient encounter procedure Jasmin Santoyo APRN.CARPENTER INSPECTOR Work Phone: [facility] Comment on above: COVID (Primary Dx); URI with cough and congestion Start: 12-21-2021 Refill Vincent Gomez MD Work Phone: [facility] Comment on above: Refill Request Start: 11-21-2021 Refill Vincent Gomez MD Work Phone: [facility] Comment on above: Refill Request Start: 10-31-2021 End: 10-31-2021 ambulatory VINCENT CADEELIUD BARRERA Facility:[facility] Start: 10-20-2021 Refill Vincent Gomez MD Work Phone: [facility] Comment on above: Refill Request Start: 10-17-2021 Refill Vincent Gomez MD Work Phone: [facility] Comment on above: Refill Request Start: 09-07-2021 End: 09-07-2021 ambulatory VINCENT CADEELIUD BARRERA Facility:[id number] Start: 09-07-2021 End: 09-07-2021 Office outpatient visit 25 minutes Vincent Barrera MD Work Phone: [facility] Comment on above: Primary hypertension (Primary Dx); Atrial fibrillation, persistent (HCC); Fibromyalgia; Moderate persistent asthma without complication; Pure hypercholesterolemia; 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) (HCC) Start: 08-23-2021 Refill Vincent Gomez MD Work Phone: [facility] Comment on above: Refill Request Start: 07-29-2021 Refill Vincent Gomez MD Work Phone: [facility] [place] Comment on above: Refill Request Procedures Date Procedure Procedure Detail Performing Clinician Start: 07-27-2020 Mammography Vincent banks MD Work Phone: Start: 11-14-2019 Colonoscopy Vincent banks MD Work Phone: Plan of Treatment Date Care Activity Detail Author Start: 11-13-2022 Colonoscopy COLONOSCOPY [facility] Start: 11-13-2022 COLORECTAL CANCER SCREENING COLORECTAL CANCER SCREENING [facility] Start: 10-31-2022 Hepatitis B surface antibody level LDL CHOLESTEROL [facility] Start: 09-07-2022 ANNUAL PCP TEAM CHRONIC DISEASE VISIT ANNUAL PCP TEAM CHRONIC DISEASE VISIT [facility] Start: 02-05-2022 DEPRESSION ASSESSMENT DEPRESSION ASSESSMENT [facility] Start: 01-30-2022 Hemoglobin A1c/Hemoglobin.total in Blood HBA1C [facility] Start: 10-06-2021 Influenza vaccination INFLUENZA (#1) [facility] Start: 09-07-2021 End: 11-07-2021 Comprehensive metabolic 2000 panel - Serum or Plasma COMP METABOLIC PANEL Lab Routine Primary hypertension Pure hypercholesterolemia 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) ([facility]) Expected: 09/07/2021, Expires: 11/07/2021 [facility] Work Phone: Comment on above: Expected: 09/07/2021, Expires: 2 Start: 09-07-2021 End: 11-07-2021 Hemoglobin A1c in Blood HGB A1C Lab Routine 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) (HCC) Expected: 09/07/2021, Expires: 11/07/2021 [facility] Work Phone: Comment on above: Expected: 09/07/2021, Expires: 2 Start: 09-07-2021 End: 11-07-2021 Lipid 1996 panel - Serum or Plasma LIPID PANEL BASIC Lab Routine Pure hypercholesterolemia Expected: 09/07/2021, Expires: 11/07/2021 [facility] Work Phone: Comment on above: Expected: 09/07/2021, Expires: 2 Start: 07-27-2021 Mammography MAMMOGRAM [facility] Start: 02-05-2021 DEPRESSION ASSESSMENT DEPRESSION ASSESSMENT [facility] Start: 12-15-2020 COVID-19 VACCINE (2 - Pfizer series) COVID-19 VACCINE (2 - Pfizer series) [facility] Start: 07-20-2016 PAP TESTING PAP TESTING [facility] Start: 12-05-2015 SHINGRIX VACCINE (1 of 2) SHINGRIX VACCINE (1 of 2) [facility] Start: 2010 COLOGUARD (FIT-DNA) COLOGUARD (FIT-DNA) [facility] Start: 2010 Colonoscopy COLONOSCOPY [facility] Start: 2010 COLORECTAL CANCER SCREENING COLORECTAL CANCER SCREENING [facility] Start: [address] COLONOGRAPHY [facility] Start: 2010 DIABETES SCREEN DIABETES SCREEN [facility] Start: 2010 FECAL OCCULT BLOOD FECAL OCCULT BLOOD [facility] Start: 2010 LIPID SCREEN LIPID SCREEN [facility] Start: 2010 SIGMOIDOSCOPY SIGMOIDOSCOPY [facility] Start: 12-05-1995 HPV TESTING HPV TESTING [facility] Start: 1984 HEPATITIS B (1 of 3 - Risk 3-dose series) HEPATITIS B (1 of 3 - Risk 3-dose series) [facility] Start: 1984 Urine microalbumin profile DTAP,TDAP,TD (1 - Tdap) [facility] Start: 12-05-1983 ANNUAL PCP TEAM CHRONIC DISEASE VISIT ANNUAL PCP TEAM CHRONIC DISEASE VISIT [facility] Start: 12-05-1983 BP CONTROLLED (<130/80) BP CONTROLLED (<130/80) [facility] Start: 12-05-1983 Hepatitis B surface antibody level LDL CHOLESTEROL [facility] Start: 12-05-1983 HEPATITIS C SCREENING HEPATITIS C SCREENING [facility] Start: 12-05-1983 HIV SCREENING HIV SCREENING [facility] Start: 12-05-1983 SPIROMETRY SPIROMETRY [facility] Start: 1977 Adult depression screening assessment DEPRESSION SCREENING [facility] Start: 12-05-1975 3 comp foot exam completed DIABETIC FOOT EXAM [facility] Start: 12-05-1975 Hepatitis B screening URINE ALBUMIN:CREATININE RATIO [facility] Start: 12-05-1975 Hepatitis C antibody, confirmatory test DILATED RETINAL EXAM [facility] Start: 12-05-1971 PNEUMOCOCCAL (1 - PCV) PNEUMOCOCCAL (1 - PCV) [facility] Start: 1970 COVID-19 VACCINE (#1) COVID-19 VACCINE (#1) [facility] Start: 1970 Hemoglobin A1c/Hemoglobin.total in Blood HBA1C [facility] Start: 06-04-1966 COVID-19 VACCINE (#1) COVID-19 VACCINE (#1) [facility] Start: 1965 HEPATITIS B (1 of 3 - 3-dose series) HEPATITIS B (1 of 3 - 3-dose series) [facility] Payers Date Payer Category Payer Unknown MMO MMO [employer] [id number] 2020-Present [phone] [address] [place] [address] PPO [id number] 2020 Unknown [id number] 2020 Unknown [id number] 1965 Unknown [id number] 1965 Unknown [id number] 1965 Unknown [id number] 1965 Unknown [id number] 1965 Unknown [id number] 1965 Unknown [id number] 1965 Unknown [id number] Social History Date Type Detail Facility Start: 08-04-2014 End: 01-10-2022 Tobacco smoking status NHIS Ex-smoker [facility] Start: 02-05-2014 History of tobacco use Smoker [facility] Start: 10-19-2020 End: 01-10-2022 Alcohol intake Current non-drinker of alcohol (finding) [facility] Start: 1965 Sex Assigned At Not on file [facility] Start: 08-28-2021 End: 09-07-2021 Exposure to SARS-CoV-2 (event) Not sure [facility] Start: 02-05-2014 History of tobacco use Cigarette Smo ker [facility] Work Phone: Start: 08-04-2014 End: 01-10-2022 Tobacco use and exposure Smokeless tobacco non-user [facility] Work Phone: Medical Equipment Procedure Code [...] 2022 11:43 AM documented in this encounter [facility] 04-07-2022 Miscellaneous Notes LAST OFFICE VISIT: [...] 2022 1:05 PM documented in this encounter [facility] 02-17-2022 Miscellaneous Notes Last Office Visit: 05-23-2021 Next Scheduled Office Visit: None scheduled Requested Prescriptions Pending Prescriptions Disp Refills DULoxetine (CYMBALTA) 30 mg capsule [Pharmacy Med Name: DULOXETINE HCL DR 30 MG CAP] 270 capsule 3 Sig: TAKE 3 CAPSULES BY MOUTH ONCE A DAY DIRECTED Isabel Jara LPN February 17, 2022 10:55 AM documented in this encounter [facility] 01-23-2022 Miscellaneous Notes Pharmacy called requesting the following refill. Requested Prescriptions Pending Prescriptions Disp Refills clonazePAM (KLONOPIN) 0.5 mg tablet [Pharmacy Med Name: CLONAZEPAM 0.5 MG TABLET] 90 tablet 1 Sig: TAKE 1 TABLET BY MOUTH THREE TIMES DAILY NEEDED FOR ANXIETY FOR UP TO 60 DAYS. Patient last appointment: 12/21/2021 Patient Phone numbers: [phone] (home) Request is for script(s) to be escript to pharmacy. Sadia Odell LPN documented in this encounter [facility] 01-10-2022 Note HNO ID: [id number] Author: Jasmin Santoyo APRN.CARPENTER INSPECTOR Service: ? Author Type: Nurse Practitioner Type: Progress Notes Filed: 01/10/2022 10:48 AM Note Text: Subjective The history is provided by the patient. No certified court/medical interpreter was used. HPI Bree Daley is a [...] have confirmed and edited as necessary, the [facility] Review of Systems Constitutional: Positive for [...] normal. Nirmatrelvir/Ritonavir (Paxlovid) Eligibility and Patient Discussion [facility] Formulary Restriction Criteria: Adult outpatients 18 [...] and that it (more content not included)... [facility] 01-10-2022 Instructions Jasmin Santoyo APRN.CARPENTER INSPECTOR - 01/10/2022 10:33 AM EST Rest, increase water intake Tylenol as needed for fever or pain. Salt water gargles, chloraseptic spray or lozenges as needed for sore throat. Warm beverages, honey. Nasal saline spray as needed Cool mist humidifier at night [facility] FACT SHEET FOR PATIENTS, PARENTS, AND CAREGIVERS EMERGENCY USE AUTHORIZATION (EUA) OF PAXLOVID FOR CORONAVIRUS DISEASE 2019 (COVID-19) You are being given this Fact Sheet because your healthcare provider believes it is necessary to provide you with PAXLOVID for the treatment of prwj-bu-tpahkrdp coronavirus disease (COVID-19) caused by the SARS-CoV-2 [...] virus. COVID-19 illnesses have ranged from very ggel-hy-wcveaq, including illness resulting in . While information [...] is an investigational medicine used to treat zrpl-pu-ooqbopys COVID-19 in adults and children [12 years [...] of using PAXLOVID to treat people with yscx-qi-lnfxvwnk COVID-19. The FDA has authorized the emergency use of PAXLOVID for the treatment of gqwx-zt-ngkrnlgb COVID-19 in adults and children [12 years [...] the medicines you take, including prescription and rbkh-atk-klmxjuu medicines, vitamins, and herbal supplements. Some medicines [...] oral midazolam Apalutamide Carbamazepine, phenobarbital, phenytoin Rifampin Steele s Wort (hypericum perforatum) Taking PAXLOVID with [...] (remdesivir) is FDA-approved for the treatment of xhbo-hx-veugpkdk COVID-19 in certain adults and children. Talk with your doctor to see if Veklury is appropriate for you. Like PAXLOVID, FDA may also allow for the emergency use of other medicines to treat people with COVID-19. Go to https://www.fda.gov/emergency-prep aredness-andresponse/deu-wrrve-lit gqkdmws-bhl-gvyggv-framework/emerg rsqt-mwg-nxcsizhlchpry for information on the emergency use of [...] if I am or ? There is radiation therapy technologist treating women or mothers with PAXLOVID. For [...] not go away. Report side effects to [employer] at www.fda.gov/medCrossbow Technologiestch or call 0-861-ZOR0488 or you can report side effects to [employer] at the contact information provided below. Website Fax number Telephone number charity: water How should I store PAXLOVID? Store PAXLOVID [...] (EUA). The EUA is supported by a [place] of Health and Human Service (HHS) declaration that circumstances exist to justify the emergency use of drugs and biological products during the COVID-19 pandemic. PAXLOVID for the treatment of ptow-wr-uxisxlqe COVID-19 in adults and children [12 years [...] telephone number provided below. Website Telephone number wwwNanoLumensRLHBH43gmhbEi.com (2-228-X83-YUNY) You can also go to www.Bitly or call for more information. [employer] Distributed by [employer] [place] [address] [place] [address] LAB-1494-2.1 Revised: 22 April 2021 documented in this encounter [facility] 01-10-2022 History of Present illness Narrative Subjective The history is provided by the patient. No certified court/medical interpreter was used. CORNELIO Daley is a 56 [...] have confirmed and edited as necessary, the [facility] Review of Systems Constitutional: Positive for [...] normal. Nirmatrelvir/Ritonavir (Paxlovid) Eligibility and Patient Discussion [facility] Formulary Restriction Criteria: Adult outpatients 18 [...] 2022 10:32 AM documented in this encounter [facility] 12-21-2021 Miscellaneous Notes Patient called requesting the following refill. Requested Prescriptions Pending Prescriptions Disp Refills clonazePAM (KLONOPIN) 0.5 mg tablet 90 tablet 0 Sig: Take 1 tablet by mouth three times daily as needed for anxiety for up to 60 days. Patient last appointment: Visit date not found Patient Phone numbers: [phone] (home) Request is for script(s) to be escript to pharmacy. Sadia Odell LPN documented in this encounter [facility] 11-21-2021 Miscellaneous Notes Pharmacy MyChart message requesting the following refill. Requested Prescriptions Pending Prescriptions Disp Refills TRUE METRIX GLUCOSE TEST STRIP test strip [Pharmacy Med Name: TRUE METRIX GLUCOSE TEST STRIP] 100 Strip 4 Sig: USE 1 STRIP DIRECTED ONCE A DAY Patient last appointment: 11/01/2021 Patient Phone numbers: [phone] (home) Request is for script(s) to be escript to [facility] pharmacy. Shani Colon LPN documented in this encounter [facility] 10-20-2021 Miscellaneous Notes Requested Prescriptions Pending Prescriptions Disp Refills glimepiride (AMARYL) 2 mg tablet [Pharmacy Med Name: GLIMEPIRIDE 2 MG TABLET] 90 tablet 3 Sig: TAKE 1 TABLET BY MOUTH EVERY DAY Isabel Jara LPN October 20, 2021 8:41 AM documented in this encounter [facility] 10-17-2021 Miscellaneous Notes Requested Prescriptions Pending Prescriptions Disp Refills clonazePAM (KLONOPIN) 0.5 mg tablet 90 tablet 1 Sig: Take 1 tablet by mouth three times daily as needed for anxiety for up to 60 days. Isabel Jara LPN October 17, 2021 2:55 PM documented in this encounter [facility] 09-07-2021 Note HNO ID: [id number] Author: Vincent Barrera MD Service: ? Author Type: Physician Type: Progress Notes Filed: 09/07/2021 5:05 PM Note Text: This note was created using [employer]. Subjective Bree Daley is a 55 year [...] 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) ([facility]) - HGB A1C; Future - COMP METABOLIC [...] Wellbutrin to Cymbalta. Follow-up in 1 month. [facility] 09-07-2021 Note HNO ID: [id number] Author: Vincent Barrera MD Service: ? Author Type: Physician Type: Progress Notes Filed: 09/07/2021 5:05 PM Note Text: This note was created using [employer]. Allison Daley is a 55 year old female. HPI Review of Systems Objective BP 130/90 (BP Site: Left Arm, BP Cuff Size: Large Adult) Pulse 80 Temp 36 ?C (96.8 ?F) (Temporal) Resp 16 Ht 167.6 cm (5' 6 ) Wt (!) 176.4 kg (389 lb) LMP 06/05/2014 SpO2 96% BMI 62.79 kg/m? Physical Exam Assessment and Plan [facility] 09-07-2021 History of Present illness Narrative This note was created using [employer]. Allison Daley is a 55 year old [...] 1 month. This note was created using [employer]. Subjective Bree Daley is a 55 year old female. HPI Review of Systems Objective BP 130/90 (BP Site: Left Arm, BP Cuff Size: Large Adult) Pulse 80 Temp 36 C (96.8 F) (Temporal) Resp 16 Ht 167.6 cm (5' 6 ) Wt (!) 176.4 kg (389 lb) LMP 06/05/2014 SpO2 96% BMI 62.79 kg/m Physical Exam Assessment and Plan documented in this encounter [facility] 08-23-2021 Miscellaneous Notes Summary: Rx refill [facility] pharmacy paper request sent: Pending Prescriptions Disp Refills ALBUTEROL SULFATE HFA 90 MCG/ACTUATION AEROSOL INHALER 1 Inhaler 3 Sig: Inhale 2 Puffs as instructed every 6 hours as needed for wheezing/shortness of breath. 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) ([facility]) [facility] RAJESH (generalized anxiety disorder) Generalized anxiety disorder [facility] Type 2 diabetes mellitus with hyperglycemia ([facility]) Type II or unspecified type diabetes mellitus without mention of complication, not stated as uncontrolled [facility] RAJESH (generalized anxiety disorder) Generalized anxiety disorder [facility]- Primary URI with cough and congestion documented in this encounter [facility] Summary Purpose Family History No Family [...] section and content) DATE CREATED AUTHOR 11/24/2019 [facility] ([place]) DATE CREATED AUTHOR AUTHOR'S ORGANIZ ATION 08/07/2020 [facility] Callie raya [place] DATE CREATED AUTHOR AUTHOR'S ORGANIZ ATION 09/26/2020 [facility] DATE CREATED AUTHOR AUTHOR'S ORGANIZ ATION 01/11/2022 [facility] DATE CREATED AUTHOR AUTHOR'S ORGANIZ ATION 05/03/2022 [facility] Callie raya DATE CREATED AUTHOR AUTHOR'S ORGANIZ ATION 11/21/2022 [facility] DATE CREATED AUTHOR AUTHOR'S ORGANIZ ATION 11/03/2023 [facility] Source Comments (unrecognize d section and content) In the event this informatio n is protected by the Federal Confidentiality of Alcohol and Drug Abuse Patient Records regulations: The Federal rules restrict any use of the information to criminally investigate or prosecute any alcohol or drug abuse patient.[facility] the event this information is protected by the Federal Confidentiality of Alcohol and Drug Abuse Patient Records regulations: The Federal rules restrict any use of the information to criminally investigate or prosecute any alcohol or drug abuse patient.[facility] the event this information is protected by the Federal Confidentiality of Alcohol and Drug Abuse Patient Records regulations: The Federal rules restrict any use of the information to criminally investigate or prosecute any alcohol or drug abuse patient.[facility] the event this information is protected by the Federal Confidentiality of Alcohol and Drug Abuse Patient Records regulations: The Federal rules restrict any use of the information to criminally investigate or prosecute any alcohol or drug abuse patient.[facility] the event this information is protected by the Federal Confidentiality of Alcohol and Drug Abuse Patient Records regulations: The Federal rules restrict any use of the information to criminally investigate or prosecute any alcohol or drug abuse patient.[facility] the event this information is protected by the Federal Confidentiality of Alcohol and Drug Abuse Patient Records regulations: The Federal rules restrict any use of the information to criminally investigate or prosecute any alcohol or drug abuse patient.[facility] the event this information is protected by the Federal Confidentiality of Alcohol and Drug Abuse Patient Records regulations: The Federal rules restrict any use of the information to criminally investigate or prosecute any alcohol or drug abuse patient.[facility] the event this information is protected by the Federal Confidentiality of Alcohol and Drug Abuse Patient Records regulations: The Federal rules restrict any use of the information to criminally investigate or prosecute any alcohol or drug abuse patient.[facility] the event this information is protected by the Federal Confidentiality of Alcohol and Drug Abuse Patient Records regulations: The Federal rules restrict any use of the information to criminally investigate or prosecute any alcohol or drug abuse patient.[facility] the event this information is protected by the Federal Confidentiality of Alcohol and Drug Abuse Patient Records regulations: The Federal rules restrict any use of the information to criminally investigate or prosecute any alcohol or drug abuse patient.[facility] the event this information is protected by the Federal Confidentiality of Alcohol and Drug Abuse Patient Records regulations: The Federal rules restrict any use of the information to criminally investigate or prosecute any alcohol or drug abuse patient.[facility] the event this information is protected by the Federal Confidentiality of Alcohol and Drug Abuse Patient Records regulations: The Federal rules restrict any use of the information to criminally investigate or prosecute any alcohol or drug abuse patient.[facility] the event this information is protected by the Federal Confidentiality of Alcohol and Drug Abuse Patient Records regulations: The Federal rules restrict any use of the information to criminally investigate or prosecute any alcohol or drug abuse patient.[facility] Reason for Visit (unrecogniz ed section [...] Care Teams (unrecognized sec tion and content) Hospice Home Health Aide Relationship Specialty Start Date End Date Vincent Barrera MD [address] [place] [address] PCP - General Family Practice 07/15/18 Chayo Harper MD Primary Staff Physician Cardiology 10/20/20 Hospice Home Health Aide Relationship Specialty Start Date End Date Vincent Barrera MD [address] [place], [place] [id number] PCP - General Family Practice 07/15/18 Chayo Harper MD Primary Staff Physician Cardiology 10/20/20 Hospice Home Health Aide Relationship Specialty Start Date End Date Vincent Barrera MD [address] [place] [address] PCP - General Family Practice 07/15/18 Chayo Harper MD Primary Staff Physician Cardiology 10/20/20 Hospice Home Health Aide Relationship Specialty Start Date End Date Vincent Barrera MD [address] [place] [address] PCP - General Family Practice 07/15/18 Chayo Harper MD Primary Staff Physician Cardiology 10/20/20 Hospice Home Health Aide Relationship Specialty Start Date End Date Vincent Barrera MD [address] [place] [address] PCP - General Family Practice 07/15/18 Chayo Harper MD Primary Staff Physician Cardiology 10/20/20 Hospice Home Health Aide Relationship Specialty Start Date End Date Vincent Barrera MD [address] [place] [address] PCP - General Family Medicine 07/15/18 Chayo Harper MD Primary Staff Physician Cardiology 10/20/20 Hospice Home Health Aide Relationship Specialty Start Date End Date Vincent Barrera MD [address] [place] [address] PCP - General Family Medicine 07/15/18 Chayo Harper MD Primary Staff Physician Cardiology 10/20/20 Hospice Home Health Aide Relationship Specialty Start Date End Date Vincent Barrera MD [address] [place] [address] PCP - General Family Medicine 07/15/18 Chayo Harper MD [address] [place] [address] Primary Staff Physician Cardiology 10/20/20 Hospice Home Health Aide Relationship Specialty Start Date End Date Vincent Barrera MD [address] [place] [address] PCP - General Family Medicine 07/15/18 Chayo Harper MD [address] [place] [address] Primary Staff Physician Cardiology 10/20/20 Hospice Home Health Aide Relationship Specialty Start Date End Date Vincent Barrera MD [address] [place] [address] PCP - General Family Medicine 07/15/18 Chayo Hraper MD [address] [place] [address] Primary Staff Physician Cardiology 10/20/20 Hospice Home Health Aide Relationship Specialty Start Date End Date Vincent Barrera MD [address] [place] [address] PCP - General Family Medicine 07/15/18 Chayo Harper MD [address] [place] [address] Primary Staff Physician Cardiology 10/20/20 Hospice Home Health Aide Relationship Specialty Start Date End Date Vincent Barrera MD [address] [place] [address] PCP - General Family Medicine 07/15/18 Chayo Harper MD [address] [place] [address] Primary Staff Physician Cardiology 10/20/20 FOR RECORDS [...] BE BASED ON THE PRIMARY CLINICAL RECORDS. [employer] provides no warranty or guarantee of the accuracy or completeness of information in this document.
--- NOTE | 2023-12-02 01:48 | EKG12_ITS ---
Test Reason : TACHYCARDIA Blood Pressure : / mmHG Vent. Rate : 159 BPM Atrial Rate : 000 BPM P-R Int : 000 ms QRS Dur : 082 ms QT Int : 304 ms P-R-T Axes : 000 007 024 degrees QTc Int : 494 ms Critical Test Result: High HR Supraventricular tachycardia Otherwise normal ECG Confirmed by MICHELLE JONES, ENDER ([id number]), newspaper managing editor LORI MANN ([id number]) on 12/03/2023 9:56:32 AM Referred By: KAMINI Confirmed By:ENDER MARTINEZ MD
[2023-12-02 01:54] LABS: Absolute Lymphocyte Count 6.29 X10^3/uL (0.83-4.51); Absolute Neutrophil Count 8.1 X10^3/uL (2.0-7.7); Basophil# 0.21 X10^3/uL; Basophil% 1.3 % (0-1); Eosinophil# 0.77 X10^3/uL; Eosinophils% 4.7 % (0-5); Hematocrit 49.4 % (37-47); Hemoglobin 16.3 g/dL (12.0-15.0); Lymphocyte # 6.29 X10^3/ul (0.83-4.51); Lymphocyte % 38.2 % (19-41); Mean Corpuscular Volume 93.9 fL (81-99); Mean Platelet Vol. 10.3 fl (6.2-12.0); Monocyte# 1.03 X10^3/uL; Monocyte% 6.3 % (0-10); NRBC Flagged by Analyzer 0 % (0-5); Neutrophil # 8.09 X10^3/uL (2.7-7.7); POSITIVE DIFFERENTIAL YES; POSITIVE MORPHOLOGY YES; Platelet Count 427 K/mm3 (150-450); RBC Distribution Width CV 12.9 % (11.6-14.6); RBC Distribution Width SD 44.3 fl (35.1-43.9); Red Blood Count 5.26 M/mm3 (4.2-5.4); White Blood Count 16.5 K/mm3 (4.4-11.0)
[2023-12-02 01:55] LABS: Differential Indicated SCAN CRITERIA MET
[2023-12-02] MEDS: Adenosine 6 MG/2 ML Syringe IV (01:57)
[2023-12-02] MEDS: Adenosine 6 MG/2 ML Syringe 12 MG IV ×2 (01:59→02:04)
[2023-12-02 02:09] LABS: Anion Gap 6 (5-15); BUN 30 mg/dL (7-18); BUN/Creat Ratio 35.6 RATIO (10-20); Calcium,Total 9.2 mg/dL (8.5-10.1); Chloride 110 mmol/L (98-107); Creatinine, Serum 0.84 mg/dL (0.55-1.02); EST Glomerular Filtration Rate 74 mL/min (>60); Est Glom Filt Rate - Afr Amer 89 mL/min (>60); Glucose 155 mg/dL (74-106); Sodium Level 141 mmol/L (136-145)
--- NOTE | 2023-12-02 02:20 | EX.ED.DYSGE1 ---
HPI History of Present Illness Chief Complaint: Palpitations Informant: patient Narrative Narrative: History of SVTs intermittent racing heart with last 2 weeks. She is on metoprolol. She sees field identification specialist has pending ablation. Lightheaded symptoms on arrival. No chest pains. No recent vomiting or diarrhea. Drinks 1 caffeine drink in the morning. Denies energy drinks or recreational drugs. Prior similar symptoms: Yes PFSH PFSH Medical History Cluster B personality disorder MDD (major depressive disorder) Polycystic ovaries Hx of headache Arthritis Smoking greater than 20 pack years Irregular heart beat Pneumonia due to 2019 novel coronavirus TAMMI on CPAP Essential hypertension Tobacco use Morbid obesity HLD (hyperlipidemia) Supraventricular tachycardia Fibromyalgia Type 2 diabetes mellitus Osteoporosis Bronchitis Agoraphobia Depression Asthma Anxiety Home Medications ?Medication ?Instructions ?Recorded ?Last Taken ?Type albuterol sulfate 2.5 mg/3 mL 2.5 mg (3 mL) inhalation Q4H PRN 09/22/21 Unknown Rx (0.083 %) solution for nebulization Sob &/Or Wheezing #180 mL albuterol sulfate 90 mcg/actuation 1 - 2 puff inhalation Q4H PRN PRN 09/22/21 Unknown Rx aerosol inhaler Wheezing #8.5 grams multivitamin (Daily Multi-Vitamin 1 tab PO DAILY 08/16/22 Unknown History tablet) metoprolol tartrate 50 mg tablet See Rx Instructions .Route 03/23/23 Unknown Rx .COMPLEX #180 TABLETS trazodone 50 mg tablet 75 mg (1.5 x 50 mg) PO QHS #45 tabs 04/03/23 Unknown Rx duloxetine 60 mg capsule,delayed 60 mg PO BID #180 caps 08/30/23 Unknown Rx release hydroxyzine HCl 25 mg tablet 25 mg PO Q8H PRN anxiety #270 tabs 11/05/23 Unknown Rx lamotrigine 100 mg tablet 100 mg PO QDAY #30 tabs 11/06/23 Unknown Rx semaglutide 1 mg/dose (4 mg/3 mL) 1 mg subcut TH 12/02/23 Unknown History subcutaneous pen injector (Ozempic) tramadol 50 mg tablet 50 mg PO TID PRN PRN pain 12/02/23 Unknown History Allergy/AdvReac Type Severity Reaction Status Date / Time No Known Drug Allergies Allergy Mild Other Verified 12/02/23 01:16 Family History Father Diabetes Colon cancer Cancer Liver Cancer Mother Hypertension Arthritis Mental disorder Diabetes Grandfather Alcoholism Grandfather Alcoholism Grandmother Cancer bone Other Anxiety Osteoporosis Surgical History H/O gastric sleeve H/O colonoscopy with polypectomy History of left knee replacement History of delivery History of tonsillectomy Social History household members: spouse current occupational status: unemployed current occupational exposures/hazards: No pets and animals: Yes history of recent travel: Yes sexually active: No Smoking Status: Former smoker quit date: 02/05/17 pack-years: 30 Electronic Cigarette Use: not used alcohol intake: never substance use type: does not use diet: other caffeine: Yes (cutting back on caffeine) luanne/jainism: Non-Zoroastrianism/Independent seatbelt use: always do you feel safe at home: Yes additional social history: [place] - Spouse, Kids - Rakan and elsa NAJERA ED Constitutional Constitutional ED: Denies chills, fever(s) or sweats Eyes Eyes: Denies change in vision ENT ENT ED: Denies dysphagia or sore throat Cardiovascular Cardiovascular: Reports palpitations and racing heartbeat; Denies chest pain or leg edema Respiratory/Chest Respiratory/Chest: Denies cough, dyspnea or dyspnea on exertion Gastrointestinal Gastrointestinal: Denies abdominal pain, diarrhea, nausea or vomiting Genitourinary Genitourinary ED: Denies dysuria, hematuria or urinary frequency Musculoskeletal Musculoskeletal: Denies back pain, extremity pain or neck pain Integumentary Denies rash or wounds Neurologic Neurologic: Denies headache(s), paresthesias or weakness EXAM Physical Exam Const Vital Signs: 12/02/23 01:16 12/02/23 01:16 12/02/23 02:05 Temperature 98.1 F Temperature Source Oral Pulse Rate 164 H 156 H Pulse Rate [1 (Initial Baseline)] Pulse Rate [2] Pulse Rate [3] Pulse Rate [4] Pulse Rate [5] Pulse Rate [6] Respiratory Rate 16 16 Respiratory Rate [1 (Initial Baseline)] Respiratory Rate [3] Respiratory Rate [4] Respiratory Rate [5] Respiratory Rate [6] Respiratory Effort Normal Non-Labored Blood Pressure 92/73 110/73 Blood Pressure [1 (Initial Baseline)] Blood Pressure [4] Blood Pressure [6] Blood Pressure Mean 79 85 Pulse Ox 100 100 Oxygen Delivery Method Room Air Oxygen Delivery Method [1 (Initial Baseline)] Oxygen Delivery Method [3] Oxygen Delivery Method [4] Oxygen Delivery Method [5] Oxygen Delivery Method [6] Oxygen Flow Rate (L/min) [3] Oxygen Flow Rate (L/min) [4] Oxygen Flow Rate (L/min) [5] Oxygen Flow Rate (L/min) [6] EtCo2 (Normal 35-45 , high quality CPR 10-20 & ROSC>/=40mmHg EtCo2 (Normal 35-45 , high quality CPR 10-20 & ROSC>/=40mmHg [1 (Initial Baseline)] EtCo2 (Normal 35-45 , high quality CPR 10-20 & ROSC>/=40mmHg [3] EtCo2 (Normal 35-45 , high quality CPR 10-20 & ROSC>/=40mmHg [4] EtCo2 (Normal 35-45 , high quality CPR 10-20 & ROSC>/=40mmHg [5] EtCo2 (Normal 35-45 , high quality CPR 10-20 & ROSC>/=40mmHg [6] 12/02/23 02:11 12/02/23 02:22 12/02/23 02:22 Temperature 97.9 F Temperature Source Pulse Rate 156 H Pulse Rate [1 (Initial Baseline)] 156 H Pulse Rate [2] 157 H Pulse Rate [3] 157 H Pulse Rate [4] 155 H Pulse Rate [5] 157 H Pulse Rate [6] 80 Respiratory Rate 16 Respiratory Rate [1 (Initial Baseline)] 16 Respiratory Rate [3] 16 Respiratory Rate [4] 16 Respiratory Rate [5] 16 Respiratory Rate [6] 17 Respiratory Effort Blood Pressure 89/72 L Blood Pressure [1 (Initial Baseline)] 89/72 L Blood Pressure [4] 90/64 Blood Pressure [6] 100/73 Blood Pressure Mean Pulse Ox 99 Oxygen Delivery Method Room Air Oxygen Delivery Method [1 (Initial Baseline)] Room Air Oxygen Delivery Method [3] Nasal Cannula Oxygen Delivery Method [4] Nasal Cannula Oxygen Delivery Method [5] Nasal Cannula Oxygen Delivery Method [6] Nasal Cannula Oxygen Flow Rate (L/min) [3] 2 Oxygen Flow Rate (L/min) [4] 2 Oxygen Flow Rate (L/min) [5] 2 Oxygen Flow Rate (L/min) [6] 2 EtCo2 (Normal 35-45 , high quality CPR 10-20 & ROSC>/=40mmHg 40 40 EtCo2 (Normal 35-45 , high quality CPR 10-20 & ROSC>/=40mmHg [1 (Initial Baseline)] 40 EtCo2 (Normal 35-45 , high quality CPR 10-20 & ROSC>/=40mmHg [3] 40 EtCo2 (Normal 35-45 , high quality CPR 10-20 & ROSC>/=40mmHg [4] 40 EtCo2 (Normal 35-45 , high quality CPR 10-20 & ROSC>/=40mmHg [5] 40 EtCo2 (Normal 35-45 , high quality CPR 10-20 & ROSC>/=40mmHg [6] 38 12/02/23 02:35 12/02/23 02:40 12/02/23 02:45 Temperature Temperature Source Pulse Rate Pulse Rate [1 (Initial Baseline)] Pulse Rate [2] Pulse Rate [3] Pulse Rate [4] Pulse Rate [5] Pulse Rate [6] Respiratory Rate Respiratory Rate [1 (Initial Baseline)] Respiratory Rate [3] Respiratory Rate [4] Respiratory Rate [5] Respiratory Rate [6] Respiratory Effort Blood Pressure Blood Pressure [1 (Initial Baseline)] Blood Pressure [4] Blood Pressure [6] Blood Pressure Mean Pulse Ox Oxygen Delivery Method Room Air Room Air Room Air Oxygen Delivery Method [1 (Initial Baseline)] Oxygen Delivery Method [3] Oxygen Delivery Method [4] Oxygen Delivery Method [5] Oxygen Delivery Method [6] Oxygen Flow Rate (L/min) [3] Oxygen Flow Rate (L/min) [4] Oxygen Flow Rate (L/min) [5] Oxygen Flow Rate (L/min) [6] EtCo2 (Normal 35-45 , high quality CPR 10-20 & ROSC>/=40mmHg 39 38 39 EtCo2 (Normal 35-45 , high quality CPR 10-20 & ROSC>/=40mmHg [1 (Initial Baseline)] EtCo2 (Normal 35-45 , high quality CPR 10-20 & ROSC>/=40mmHg [3] EtCo2 (Normal 35-45 , high quality CPR 10-20 & ROSC>/=40mmHg [4] EtCo2 (Normal 35-45 , high quality CPR 10-20 & ROSC>/=40mmHg [5] EtCo2 (Normal 35-45 , high quality CPR 10-20 & ROSC>/=40mmHg [6] 12/02/23 03:00 12/02/23 04:00 12/02/23 05:00 Temperature Temperature Source Pulse Rate 78 78 70 Pulse Rate [1 (Initial Baseline)] Pulse Rate [2] Pulse Rate [3] Pulse Rate [4] Pulse Rate [5] Pulse Rate [6] Respiratory Rate 16 16 17 Respiratory Rate [1 (Initial Baseline)] Respiratory Rate [3] Respiratory Rate [4] Respiratory Rate [5] Respiratory Rate [6] Respiratory Effort Blood Pressure 94/62 101/55 L 93/59 L Blood Pressure [1 (Initial Baseline)] Blood Pressure [4] Blood Pressure [6] Blood Pressure Mean 72 70 70 Pulse Ox 98 98 98 Oxygen Delivery Method Room Air Room Air Room Air Oxygen Delivery Method [1 (Initial Baseline)] Oxygen Delivery Method [3] Oxygen Delivery Method [4] Oxygen Delivery Method [5] Oxygen Delivery Method [6] Oxygen Flow Rate (L/min) [3] Oxygen Flow Rate (L/min) [4] Oxygen Flow Rate (L/min) [5] Oxygen Flow Rate (L/min) [6] EtCo2 (Normal 35-45 , high quality CPR 10-20 & ROSC>/=40mmHg EtCo2 (Normal 35-45 , high quality CPR 10-20 & ROSC>/=40mmHg [1 (Initial Baseline)] EtCo2 (Normal 35-45 , high quality CPR 10-20 & ROSC>/=40mmHg [3] EtCo2 (Normal 35-45 , high quality CPR 10-20 & ROSC>/=40mmHg [4] EtCo2 (Normal 35-45 , high quality CPR 10-20 & ROSC>/=40mmHg [5] EtCo2 (Normal 35-45 , high quality CPR 10-20 & ROSC>/=40mmHg [6] 12/02/23 05:17 Temperature 98.4 F Temperature Source Pulse Rate 68 Pulse Rate [1 (Initial Baseline)] Pulse Rate [2] Pulse Rate [3] Pulse Rate [4] Pulse Rate [5] Pulse Rate [6] Respiratory Rate 16 Respiratory Rate [1 (Initial Baseline)] Respiratory Rate [3] Respiratory Rate [4] Respiratory Rate [5] Respiratory Rate [6] Respiratory Effort Blood Pressure 95/59 L Blood Pressure [1 (Initial Baseline)] Blood Pressure [4] Blood Pressure [6] Blood Pressure Mean 71 Pulse Ox 99 Oxygen Delivery Method Oxygen Delivery Method [1 (Initial Baseline)] Oxygen Delivery Method [3] Oxygen Delivery Method [4] Oxygen Delivery Method [5] Oxygen Delivery Method [6] Oxygen Flow Rate (L/min) [3] Oxygen Flow Rate (L/min) [4] Oxygen Flow Rate (L/min) [5] Oxygen Flow Rate (L/min) [6] EtCo2 (Normal 35-45 , high quality CPR 10-20 & ROSC>/=40mmHg EtCo2 (Normal 35-45 , high quality CPR 10-20 & ROSC>/=40mmHg [1 (Initial Baseline)] EtCo2 (Normal 35-45 , high quality CPR 10-20 & ROSC>/=40mmHg [3] EtCo2 (Normal 35-45 , high quality CPR 10-20 & ROSC>/=40mmHg [4] EtCo2 (Normal 35-45 , high quality CPR 10-20 & ROSC>/=40mmHg [5] EtCo2 (Normal 35-45 , high quality CPR 10-20 & ROSC>/=40mmHg [6] Positive well nourished and well developed General Appearance ED: well developed and NAD HEENT Reports moist mucous membranes normocephalic and atraumatic Eyes EOMs intact bilaterally and conjunctivae normal General Eye ED: Yes normal appearance of both eyes Neck no lymphadenopathy and supple General: Negative for tenderness Chest Wall Chest: Negative for tenderness Resp normal respiratory effort and normal air movement Effort and Inspection: symmetric chest movement; Negative for respiratory distress Cardio regular rhythm and no murmurs Rate: tachycardic Peripheral Pulses: pulses 2+ throughout GI normal to inspection, nondistended, normoactive bowel sounds and non-tender Palpation: Negative for guarding or rebound tenderness present Back/Spine no CVA tenderness and no thoracic nor lumbar tenderness Extremity normal to inspection General Extremety ED: Negative for edema or tenderness General Extremity: Negative for edema Neuro oriented x3 and no sensory deficits noted Sensorium / Orientation: awake and alert Skin no rashes or lesions noted and no wounds MDM MDM MDM Narrative Medical decision making narrative: Interventions / MDM: Differential diagnosis: SVT Diagnosis considered but do not suspect: No signs of atrial fibrillation My EKG interpretation: SVT rate of 159, no ST or T wave changes. EKG post cardioversion at 0231: Sinus rate of 80, no ST changes. Imaging independently reviewed and interpreted by myself: N/A External documents reviewed: N/A Test considered but not ordered:N/A ED course: Patient had SVT. She had blood pressure drop in the 60s responded to fluids. IV established labs were drawn discussed adenosine for which she agreed and had done before. Labs are pending adenosine trial 6, 12, 12 mg with no success. Discussed preparations for cardioversion her last meal was over 6 hours ago at 8 AM. 0222: Written consent obtained risk and benefits. Blood pressure systolic 90s therefore fentanyl 50 mics and 2 mg Versed was used. During this period of time not fully sedated therefore additional 20 mg propofol was given. Direct-current cardioversion synchronized 150 J with noted return of sinus rhythm. Sedation time 15 minutes. 0500: Post cardioversion remains sinus rhythm however blood pressure transient in the 70s responding to fluids she reported took an extra metoprolol at 7 PM. She was monitored her blood pressure improved. She ambulated in department with no return of symptoms. Patient will hold her morning metoprolol. She will follow-up with her cardiology team. Return precautions. All questions were answered. Re-evaluation: stable Disposition discussed with patient/family/significant other: Patient and significant other Case discussed with consulting clinician: N/A This note was generated with [employer] dictation software. It may contain incorrect words, spelling, and punctuation that were not noted in checking the note before signing. Lab Data Attestation: I reviewed the patient's lab results. Labs: Laboratory Results - last 24 hr 12/02/23 12/02/23 01:22 04:03 WBC 16.5 H RBC 5.26 Hgb 16.3 H Hct 49.4 H MCV 93.9 MCH 31.0 MCHC 33.0 RDW Std Deviation 44.3 H RDW Coeff of Milo 12.9 Plt Count 427 MPV 10.3 Immature Gran % (Auto) 0.500 Neut % (Auto) 49.0 Lymph % (Auto) 38.2 Brooks % (Auto) 6.3 Eos % (Auto) 4.7 Baso % (Auto) 1.3 H Absolute Neuts (auto) 8.1 H Absolute Lymphs (auto) 6.29 H Nucleated RBC % 0 Differential Comment SCANNED Reactive Lymphocytes 3+ Sodium 141 Potassium 4.0 Chloride 110 H Carbon Dioxide 25.0 Anion Gap 6 BUN 30 H Creatinine 0.84 Estim Creat Clear Calc 96.10 Est GFR (MDRD) Af Amer 89 Est GFR (MDRD) Non-Af 74 BUN/Creatinine Ratio 35.6 H Glucose 155 H Calcium 9.2 Urine Color Yellow Urine Clarity Clear Urine pH 6.0 Ur Specific [place] 1.025 Urine Protein 30 H Urine Glucose (UA) Normal Urine Ketones Negative Urine Occult Blood Negative Urine Nitrite Negative Urine Bilirubin 1 H Urine Urobilinogen 1 H Ur Leukocyte Esterase 25 H Urine RBC 0 SEEN Urine WBC 0-5 SEEN Ur Squamous Epith Cells 0 SEEN Urine Bacteria 1+ Urine Mucus 2+ Critical Care Time Critical Care Time: Yes Critical care time (excluding procedures): 30-74 minutes, Discussing w/Patient &/or Family/Railway Engineer, Discussing w/Consultants, Arranging Admission or Transfer, Performing Direct Patient Care at Bedside and - (35 minutes) Discharge Plan Triage Chief Complaint: Palpitations ED Provider: Marco Ramires Dx/Rx/DC Orders Clinical Impression: SVT (supraventricular tachycardia), Encounter for cardioversion procedure, Transient hypotension, History of conscious sedation Instructions: Cardioversion Dc, ED Understanding Supraventricular Tachycardia (SVT), ED Procedural Sedation, (Adult) Prescriptions: No Action albuterol sulfate 90 mcg/actuation HFA aerosol inhaler 1 - 2 puff INHALATION Q4H PRN PRN (Reason: Wheezing) Qty: 8.5 5RF albuterol sulfate 2.5 mg /3 mL (0.083 %) solution for nebulization 2.5 mg inhalation Q4H PRN (Reason: Sob &/Or Wheezing) Qty: 180 3RF multivitamin [Daily Multi-Vitamin] Tablet 1 tab PO DAILY Ozempic 1 mg/dose (4 mg/3 mL) pen injector 1 mg subcut TH tramadol 50 mg tablet 50 mg PO TID PRN PRN (Reason: pain) metoprolol tartrate 50 mg tablet See Rx Instructions .ROUTE .COMPLEX Qty: 180 3RF Dose Instruction: TAKE 1 TABLET BY MOUTH TWICE A DAY Rx Instructions: TAKE 1 TABLET BY MOUTH TWICE A DAY trazodone 50 mg tablet 75 mg PO QHS Qty: 45 1RF duloxetine 60 mg capsule,delayed release(DR/EC) 60 mg PO BID Qty: 180 1RF hydroxyzine HCl 25 mg tablet 25 mg PO Q8H PRN (Reason: anxiety) Qty: 270 1RF lamotrigine 100 mg tablet 100 mg PO QDAY Qty: 30 2RF Primary Care Provider: Fabi Cisneros Referrals: Fabi Cisneros MD [Primary Care Provider] - Cary Brasher PA [Med Staff - [facility]] - 3-5 Days Activity Restrictions/Additional Instructions: You did not convert with adenosine x 3. You converted with direct-current cardioversion. Hold your morning metoprolol secondary to your low blood pressure which improved with fluids. Follow-up with your cardiology team. If symptoms return and worsens, return to the ED for reevaluation. Print Language: Polish Disposition Disposition: Home, Self Care Discharge Date/Time: 12/02/23 05:18
[2023-12-02] MEDS: fentaNYL 100 MCG/2 ML Ampul 50 MCG IV (02:23)
[2023-12-02] MEDS: Midazolam 2 MG/2 ML Syringe IV (02:24)
[2023-12-02 02:25] LABS: Differential Comment SCANNED; Reactive Lymphocyte 3+
--- NOTE | 2023-12-02 02:30 | EKG12_ITS ---
Test Reason : SVT/POST SHOCK CARDIOVERSION Blood Pressure : */* mmHG Vent. Rate : 96 BPM Atrial Rate : 78 BPM P-R Int : * ms QRS Dur : 80 ms QT Int : 352 ms P-R-T Axes : 98 17 23 degrees QTcB Int : 444 ms Poor data quality, interpretation may be adversely affected Normal sinus rhythm with atrial fibrillaiton Nonspecific ST and T wave abnormality Abnormal ECG When compared with ECG of 02-DEC-2023 01:21, MANUAL COMPARISON REQUIRED, DATA IS UNCONFIRMED Confirmed by MICHELLE JONES, ENDER ([id number]), editor farm journal LORI MANN ([id number]) on 12/07/2023 11:17:27 AM Referred By: KAMINI Confirmed By: ENDER MARTINEZ MD
[2023-12-02] MEDS: Propofol 200 MG/20 ML Vial IV BOLUS (02:31)
--- NOTE | 2023-12-02 02:51 | EKG12_ITS ---
Test Reason : SVT/POST SHOCK CARDIOVERSION Blood Pressure : / mmHG Vent. Rate : 080 BPM Atrial Rate : 080 BPM P-R Int : 140 ms QRS Dur : 078 ms QT Int : 376 ms P-R-T Axes : 050 012 046 degrees QTc Int : 433 ms Normal sinus rhythm Nonspecific ST abnormality Abnormal ECG Confirmed by MCIHELLE JONES, ENDER ([id number]), manuscript editor LORI MANN ([id number]) on 12/03/2023 9:56:50 AM Referred By: KAMINI Confirmed By:ENDER MARTINEZ MD
[2023-12-02 04:07] LABS: Glucose, Dipstick Normal (Normal); Ketone-Dipstick Negative (Negative); Leukocyte Esterase-Dipstick 25 /ul (Negative); Nitrite-Dipstick Negative (Negative); Occult Blood-Urine Negative /ul (Negative); Protein-Dipstick 30 mg/dl (Negative); Specific Gravity, Urine 1.025 (1.002-1.030); Urine Urobilinogen 1 mg/dl (Normal)
[2023-12-02 04:10] LABS: Red Blood Cells-Urine 0 SEEN /hpf (0-5); Squamous Epithelial Cells - UA 0 SEEN /hpf (5-10)
[2023-12-02 04:19] LABS: Color, Urine Yellow (Yellow); Urine Bilirubin Dipstick 1 mg/dL (Negative); Urine Clarity Clear (Clear)
[2023-12-02 04:20] LABS: Bacteria 1+ /hpf (None Seen); Mucous, Urine 2+ /hpf (<or=2+); White Blood Cells 0-5 SEEN /hpf (0-5)
== END 2023-12-02 05:18 | disposition home or self-care (01) ==
PROVIDERS: Emergency Provider Emergency Medicine; PCP Internal Medicine; Visit Provider Emergency Medicine
DX: I47.10 Supraventricular tachycardia, unspecified (principal); E11.9 Type 2 diabetes mellitus without complications; E78.5 Hyperlipidemia, unspecified; I10 Essential (primary) hypertension; J45.909 Unspecified asthma, uncomplicated; R03.1 Nonspecific low blood-pressure reading; Z79.85 Long-term (current) use of injectable non-insulin antidiabetic drugs; Z79.899 Other long term (current) drug therapy; Z87.891 Personal history of nicotine dependence
CPT/HCPCS: 80048; 81001; 85025; 92960; 93005; 96374; 99152; 99284; J7030; A4216; J0153

== ENCOUNTER 2023-12-16 05:47 | Inpatient (IN) | payer BC, SELFPAY ==
[2023-12-16] VITALS (33 sets, daily range): BP systolic 42–137; BP diastolic 25–107; PULSE 61–168; RESP 10–22; TEMP 36.3–37.2; O2SAT 96–100; BMI 42.2; BMI 41.7
--- NOTE | 2023-12-16 05:58 | EDS_ITS ---
HPI History of Present Illness Chief Complaint: Chest Other Informant: patient and spouse/S.O. Narrative Narrative: 58-year-old female sudden onset rapid palpitations around 6 hours ago. She has tried some vagal maneuvers without success. She tried pushing around on her carotid as well. She has felt lightheaded. She felt some chest pressure that started later but that is not really there right now. She has had this happen before, was supposed to get a radiofrequency ablation but states she is supposed to lose weight first. She is on metoprolol. She is been compliant with that. She is taken no [id number] medications recently, stimulants, or illicit substances. [facility] Medical History Cluster B personality disorder MDD (major depressive disorder) Polycystic ovaries Hx of headache Arthritis Smoking greater than 20 pack years Irregular heart beat Pneumonia due to 2019 novel coronavirus TAMMI on CPAP Essential hypertension Tobacco use Morbid obesity HLD (hyperlipidemia) Supraventricular tachycardia Fibromyalgia Type 2 diabetes mellitus Osteoporosis Bronchitis Agoraphobia Depression Asthma Anxiety Home Medications ?Medication ?Instructions ?Recorded ?Last Taken ?Type albuterol sulfate 2.5 mg/3 mL 2.5 mg (3 mL) inhalation Q4H PRN 09/22/21 Unknown Rx (0.083 %) solution for nebulization Sob &/Or Wheezing #180 mL albuterol sulfate 90 mcg/actuation 1 - 2 puff inhalation Q4H PRN PRN 09/22/21 Unknown Rx aerosol inhaler Wheezing #8.5 grams multivitamin (Daily Multi-Vitamin 1 tab PO DAILY 08/16/22 Unknown History tablet) metoprolol tartrate 50 mg tablet See Rx Instructions .Route 03/23/23 Unknown Rx .COMPLEX #180 TABLETS trazodone 50 mg tablet 75 mg (1.5 x 50 mg) PO QHS #45 tabs 04/03/23 Unknown Rx duloxetine 60 mg capsule,delayed 60 mg PO BID #180 caps 08/30/23 Unknown Rx release hydroxyzine HCl 25 mg tablet 25 mg PO Q8H PRN anxiety #270 tabs 11/05/23 Unknown Rx lamotrigine 100 mg tablet 100 mg PO QDAY #30 tabs 11/06/23 Unknown Rx semaglutide 1 mg/dose (4 mg/3 mL) 1 mg subcut TH 12/02/23 Unknown History subcutaneous pen injector (Ozempic) tramadol 50 mg tablet 50 mg PO TID PRN PRN pain 12/02/23 Unknown History Allergy/AdvReac Type Severity Reaction Status Date / Time No Known Drug Allergies Allergy Mild Other Verified 12/16/23 05:49 Family History Father Diabetes Colon cancer Cancer Liver Cancer Mother Hypertension Arthritis Mental disorder Diabetes Grandfather Alcoholism Grandfather Alcoholism Grandmother Cancer bone Other Anxiety Osteoporosis Surgical History H/O gastric sleeve H/O colonoscopy with polypectomy History of left knee replacement History of delivery History of tonsillectomy Social History household members: spouse current occupational status: unemployed current occupational exposures/hazards: No pets and animals: Yes history of recent travel: Yes sexually active: No Smoking Status: Former smoker quit date: 02/05/17 pack-years: 30 Electronic Cigarette Use: not used alcohol intake: never substance use type: does not use diet: other caffeine: Yes (cutting back on caffeine) luanne/anabaptist: Non-Mandaen/Independent seatbelt use: always do you feel safe at home: Yes additional social history: [place] - Spouse, Kids - Rakan and elsa NAJERA ROS ED Constitutional Constitutional ED: Denies chills or fever(s) Eyes Eyes: Denies change in vision or diplopia ENT ENT ED: Denies rhinorrhea or sore throat Cardiovascular Cardiovascular: Reports as per HPI, chest pain, lightheadedness and palpitations; Denies syncope Respiratory/Chest Respiratory/Chest: Denies cough or dyspnea Gastrointestinal Gastrointestinal: Denies abdominal pain, diarrhea, nausea or vomiting Genitourinary Genitourinary ED: Denies dysuria or hematuria Musculoskeletal Musculoskeletal: Denies back pain or neck pain Integumentary Denies abscess or rash Neurologic Neurologic: Denies headache(s), paresthesias or weakness Psychiatric Psychiatric: Denies anxiety or suicidal thoughts EXAM Physical Exam Const Vital Signs: 12/16/23 05:51 12/16/23 05:55 12/16/23 06:11 Temperature 97.8 F Temperature Source Oral Pulse Rate 163 H Pulse Rate [1 (Initial Baseline)] Pulse Rate [4] Pulse Rate [5] Pulse Rate [6] Respiratory Rate 18 Respiratory Rate [1 (Initial Baseline)] Respiratory Rate [4] Respiratory Rate [5] Respiratory Rate [6] Respiratory Effort Short of Breath Labored Blood Pressure 60/34 L Blood Pressure [1 (Initial Baseline)] Blood Pressure [6] Blood Pressure Mean 42 Pulse Ox 100 Oxygen Delivery Method Room Air Oxygen Delivery Method [1 (Initial Baseline)] Oxygen Delivery Method [4] Oxygen Delivery Method [5] Oxygen Delivery Method [6] EtCo2 (Normal 35-45 , high quality CPR 10-20 & ROSC>/=40mmHg 35 EtCo2 (Normal 35-45 , high quality CPR 10-20 & ROSC>/=40mmHg [1 (Initial Baseline)] EtCo2 (Normal 35-45 , high quality CPR 10-20 & ROSC>/=40mmHg [4] EtCo2 (Normal 35-45 , high quality CPR 10-20 & ROSC>/=40mmHg [5] EtCo2 (Normal 35-45 , high quality CPR 10-20 & ROSC>/=40mmHg [6] 12/16/23 06:15 12/16/23 06:15 12/16/23 06:20 Temperature 97.8 F Temperature Source Pulse Rate 168 H Pulse Rate [1 (Initial Baseline)] 168 H Pulse Rate [4] 165 H Pulse Rate [5] 165 H Pulse Rate [6] 70 Respiratory Rate 18 Respiratory Rate [1 (Initial Baseline)] 18 Respiratory Rate [4] 18 Respiratory Rate [5] 18 Respiratory Rate [6] 18 Respiratory Effort Blood Pressure 52/38 L Blood Pressure [1 (Initial Baseline)] 52/38 L Blood Pressure [6] 42/25 L Blood Pressure Mean Pulse Ox 100 Oxygen Delivery Method Room Air Room Air Oxygen Delivery Method [1 (Initial Baseline)] Room Air Oxygen Delivery Method [4] Room Air Oxygen Delivery Method [5] Room Air Oxygen Delivery Method [6] Room Air EtCo2 (Normal 35-45 , high quality CPR 10-20 & ROSC>/=40mmHg 35 33 EtCo2 (Normal 35-45 , high quality CPR 10-20 & ROSC>/=40mmHg [1 (Initial Baseline)] 35 EtCo2 (Normal 35-45 , high quality CPR 10-20 & ROSC>/=40mmHg [4] 34 EtCo2 (Normal 35-45 , high quality CPR 10-20 & ROSC>/=40mmHg [5] 35 EtCo2 (Normal 35-45 , high quality CPR 10-20 & ROSC>/=40mmHg [6] 33 12/16/23 06:25 12/16/23 06:30 12/16/23 06:35 Temperature Temperature Source Pulse Rate Pulse Rate [1 (Initial Baseline)] Pulse Rate [4] Pulse Rate [5] Pulse Rate [6] Respiratory Rate Respiratory Rate [1 (Initial Baseline)] Respiratory Rate [4] Respiratory Rate [5] Respiratory Rate [6] Respiratory Effort Blood Pressure Blood Pressure [1 (Initial Baseline)] Blood Pressure [6] Blood Pressure Mean Pulse Ox Oxygen Delivery Method Room Air Room Air Room Air Oxygen Delivery Method [1 (Initial Baseline)] Oxygen Delivery Method [4] Oxygen Delivery Method [5] Oxygen Delivery Method [6] EtCo2 (Normal 35-45 , high quality CPR 10-20 & ROSC>/=40mmHg 35 35 36 EtCo2 (Normal 35-45 , high quality CPR 10-20 & ROSC>/=40mmHg [1 (Initial Baseline)] EtCo2 (Normal 35-45 , high quality CPR 10-20 & ROSC>/=40mmHg [4] EtCo2 (Normal 35-45 , high quality CPR 10-20 & ROSC>/=40mmHg [5] EtCo2 (Normal 35-45 , high quality CPR 10-20 & ROSC>/=40mmHg [6] 12/16/23 06:48 12/16/23 07:00 Temperature Temperature Source Pulse Rate 81 80 Pulse Rate [1 (Initial Baseline)] Pulse Rate [4] Pulse Rate [5] Pulse Rate [6] Respiratory Rate 18 14 Respiratory Rate [1 (Initial Baseline)] Respiratory Rate [4] Respiratory Rate [5] Respiratory Rate [6] Respiratory Effort Blood Pressure 43/34 L 85/65 L Blood Pressure [1 (Initial Baseline)] Blood Pressure [6] Blood Pressure Mean 37 71 Pulse Ox 99 99 Oxygen Delivery Method Room Air Oxygen Delivery Method [1 (Initial Baseline)] Oxygen Delivery Method [4] Oxygen Delivery Method [5] Oxygen Delivery Method [6] EtCo2 (Normal 35-45 , high quality CPR 10-20 & ROSC>/=40mmHg EtCo2 (Normal 35-45 , high quality CPR 10-20 & ROSC>/=40mmHg [1 (Initial Baseline)] EtCo2 (Normal 35-45 , high quality CPR 10-20 & ROSC>/=40mmHg [4] EtCo2 (Normal 35-45 , high quality CPR 10-20 & ROSC>/=40mmHg [5] EtCo2 (Normal 35-45 , high quality CPR 10-20 & ROSC>/=40mmHg [6] Positive well nourished, well developed and obese Constitutional Narrative: Keenly alert, conversive in full sentences without difficulty or distress General Appearance ED: well developed and NAD Nutritional Appearance: obese HEENT Reports moist mucous membranes normocephalic and atraumatic Eyes PERRL and EOMs intact bilaterally Neck full ROM and supple Resp normal respiratory effort and clear to auscultation bilaterally Cardio regular rhythm and no murmurs Rate: tachycardic Peripheral Pulses: pulses 2+ throughout GI non-tender and non-distended Auscultation: normoactive bowel sounds Palpation: soft Back/Spine no CVA tenderness General Back: other FROM Extremity normal to inspection General Extremety ED: Negative for edema, pulses abnormal or tenderness General Extremity: Negative for edema or pulses abnormal Neuro oriented x3, CN's II-XII intact bilaterally and no sensory deficits noted Sensorium / Orientation: awake and alert Motor Exam: strength 5/5 throughout Skin no rashes or lesions noted and no wounds MDM MDM MDM Narrative Medical decision making narrative: I was asked to come see this patient in SVT while there were other patient to arrive simultaneously. She has been in a before, she has not lost consciousness and she appears well clinically other than her tachycardia, however her pressure extremely low which we verified with several readings. Therefore instead of adenosine which was then canceled, I directed nursing to prepare for emergent cardioversion with procedural sedation see the procedure note. This was done as quickly as we could safely do it. signed for consent, and the procedure went well. Afterwards EKG repeated, completely normal. However, patient still hypotensive. After the first half liter of IV fluids, her pressure is 85/65 and her troponin returned slightly elevated 393. It is certainly possible this was because the patient was in SVT for at least 6 hours before coming here, however she did have some chest discomfort although it sounded less like angina since she did not have it at the same time or before the onset of her palpitations. I discussed that with cardiology Dr. Sultana, he advises continuing with IV fluids and watching the patient in the ED while obtaining a 2-hour repeat troponin. If continuing to elevate he recommends admitting her for further evaluation. At this point the patient is asymptomatic and feeling much better, and for the second troponin and final disposition, will be checked out to a.m. ED physician at shift change. Lab Data Attestation: I reviewed the patient's lab results. Labs: Laboratory Results - last 24 hr 12/16/23 05:55 WBC 13.9 H RBC 4.76 Hgb 15.0 Hct 43.8 MCV 92.0 MCH 31.5 MCHC 34.2 RDW Std Deviation 43.0 RDW Coeff of Milo 12.8 Plt Count 369 MPV 10.0 Immature Gran % (Auto) 0.400 Neut % (Auto) 43.6 L Lymph % (Auto) 42.2 H [place] % (Auto) 7.2 Eos % (Auto) 5.5 H Baso % (Auto) 1.1 H Absolute Neuts (auto) 6.1 Absolute Lymphs (auto) 5.88 H Nucleated RBC % 0 Differential Comment SCANNED Reactive Lymphocytes 2+ Platelet Estimate ADEQUATE Sodium 139 Potassium 3.8 Chloride 109 H Carbon Dioxide 24.0 Anion Gap 6 BUN 24 H Creatinine 0.74 Estim Creat Clear Calc 108.66 Est GFR (MDRD) Af Amer 104 Est GFR (MDRD) Non-Af 86 BUN/Creatinine Ratio 32.5 H Glucose 120 H Calcium 9.3 Troponin I High Sens 393 H* Rhythm Strip Rhythm Strip: SVT Rate: 162 Ectopy: PVC(s) (Rare) EKG Initial EKG: Attestation: I personally reviewed and interpreted this EKG as follows: Interpretation: No Acute Injury Pattern Comments: Narrow complex tachycardia at 165, no ST segment deviation Follow-up EKG: Attestation: I personally reviewed and interpreted this EKG as follows: Interpretation: Sinus Rhythm and No Acute Injury Pattern Comments: Nml axis & intervals; nml EKG post cardioversion Management Discussion w/another healthcare provider: Occupational Medicine Specialist (cardiology) Procedures Procedural Sedation 1 (Initial Baseline): Consent Signed: Yes Any Problems With Anesthesia: No Sedation medication: Versed Dose: 2 Route: IV Total Moderate Sedation Units: 8 Maliampati Score: Class III ASA Classification: II Comment:: On monitor with prophylactic nasal cannula oxygenation and IV fluids, end-tidal CO2 monitoring, airway equipment at the bedside. Pretreated with fentanyl 50 mcg in addition to Versed given that patient had a small amount of cheese and water to eat/drink around 4-5 hours prior to the procedure. Tolerated well with no complications. Other Procedures Procedure(s): Electrocardioversion: Pads placed anteriorly-posteriorly about the patient, after sedated as above, initially perform synchronized cardioversion with 100 J biphasic energy which was unsuccessful, then repeated with 200 J biphasic energy which was successful, repeat EKG shows normal sinus rhythm without acute injury pattern. Tolerated well without complications. Critical Care Time Critical Care Time: Yes Critical care time (excluding procedures): 30-74 minutes (33 min, not including procedure time), Including time spent:, Discussing w/Patient &/or Family/Cab Supervisor and Performing Direct Patient Care at Bedside Discharge Plan Triage Chief Complaint: Chest Other ED Provider: Josh Bullard Dx/Rx/DC Orders Clinical Impression: Supraventricular tachycardia, Chest pain, Acute hypotension Prescriptions: No Action albuterol sulfate 90 mcg/actuation HFA aerosol inhaler 1 - 2 puff INHALATION Q4H PRN PRN (Reason: Wheezing) Qty: 8.5 5RF albuterol sulfate 2.5 mg /3 mL (0.083 %) solution for nebulization 2.5 mg inhalation Q4H PRN (Reason: Sob &/Or Wheezing) Qty: 180 3RF multivitamin [Daily Multi-Vitamin] Tablet 1 tab PO DAILY Ozempic 1 mg/dose (4 mg/3 mL) pen injector 1 mg subcut TH tramadol 50 mg tablet 50 mg PO TID PRN PRN (Reason: pain) metoprolol tartrate 50 mg tablet See Rx Instructions .ROUTE .COMPLEX Qty: 180 3RF Dose Instruction: TAKE 1 TABLET BY MOUTH TWICE A DAY Rx Instructions: TAKE 1 TABLET BY MOUTH TWICE A DAY trazodone 50 mg tablet 75 mg PO QHS Qty: 45 1RF duloxetine 60 mg capsule,delayed release(DR/EC) 60 mg PO BID Qty: 180 1RF hydroxyzine HCl 25 mg tablet 25 mg PO Q8H PRN (Reason: anxiety) Qty: 270 1RF lamotrigine 100 mg tablet 100 mg PO QDAY Qty: 30 2RF Primary Care Provider: Fabi Cisneros Referrals: Fabi Cisneros MD [Primary Care Provider] - Print Language: Belarusian
[2023-12-16 06:10] LABS: Absolute Lymphocyte Count 5.88 X10^3/uL (0.83-4.51); Absolute Neutrophil Count 6.1 X10^3/uL (2.0-7.7); Basophil# 0.16 X10^3/uL; Basophil% 1.1 % (0-1); Eosinophil# 0.76 X10^3/uL; Eosinophils% 5.5 % (0-5); Hematocrit 43.8 % (37-47); Lymphocyte # 5.88 X10^3/ul (0.83-4.51); Lymphocyte % 42.2 % (19-41); Mean Corp Hgb Conc 34.2 g/dL (32-36); Mean Corpuscular Hgb 31.5 pg (27.0-32.0); Monocyte% 7.2 % (0-10); NRBC Flagged by Analyzer 0 % (0-5); Neutrophil # 6.08 X10^3/uL (2.7-7.7); Neutrophil % 43.6 % (47-70); POSITIVE DIFFERENTIAL YES; Platelet Count 369 K/mm3 (150-450); RBC Distribution Width CV 12.8 % (11.6-14.6); Red Blood Count 4.76 M/mm3 (4.2-5.4); White Blood Count 13.9 K/mm3 (4.4-11.0)
[2023-12-16 06:14] LABS: Differential Indicated SCAN CRITERIA MET
[2023-12-16] MEDS: fentaNYL 100 MCG/2 ML Ampul 50 MCG IV (06:15)
[2023-12-16] MEDS: Midazolam 2 MG/2 ML Syringe IV (06:15)
--- NOTE | 2023-12-16 06:23 | EKG12_ITS ---
Test Reason : POST CARDIOVERSION Blood Pressure : */* mmHG Vent. Rate : 81 BPM Atrial Rate : 81 BPM P-R Int : 134 ms QRS Dur : 74 ms QT Int : 386 ms P-R-T Axes : 69 36 48 degrees QTcB Int : 448 ms Normal sinus rhythm Normal ECG Confirmed by MICHELLE JONES, ENDER ([id number]), photo editor LORI MANN ([id number]) on 12/17/2023 9:46:52 AM Referred By: Confirmed By: ENDER MARTINEZ MD
[2023-12-16 06:36] LABS: Anion Gap 6 (5-15); BUN 24 mg/dL (7-18); BUN/Creat Ratio 32.5 RATIO (10-20); Calcium,Total 9.3 mg/dL (8.5-10.1); Chloride 109 mmol/L (98-107); Creatinine, Serum 0.74 mg/dL (0.55-1.02); EST Glomerular Filtration Rate 86 mL/min (>60); Est Glom Filt Rate - Afr Amer 104 mL/min (>60); Estimated Creatinine Clearance 108.66 ml/min; Glucose 120 mg/dL (74-106); Potassium 3.8 mmol/L (3.5-5.1); Sodium Level 139 mmol/L (136-145); Troponin-I HS 393 pg/mL (3.0-54.0)
[2023-12-16 06:47] LABS: Differential Comment SCANNED; Platelet Estimate ADEQUATE (ADEQ); Reactive Lymphocyte 2+
[2023-12-16] MEDS: 0.9% Normal Saline (1000mL) 1,000 ML 999 ML IV (06:49)
[2023-12-16 08:37] LABS: Troponin-I HS 1158 pg/mL (3.0-54.0)
--- NOTE | 2023-12-16 08:48 | PCM.HP.STD ---
HPI - General General Date of Admission: 12/16/23 Date of Service: 12/16/23 Chief Complaint: Chest discomfort/palpitations HPI Narrative LOUISE DALEY, is a 58 F who presented to the emergency department at [facility] early in the morning of 12/16/2019 for complaining of chest discomfort and palpitations. Symptoms started about 6 hours prior to presentation. Patient has a known history of SVT and tried several vagal maneuvers without any success. She also tried carotid artery massage as well without any success. Patient has a known history of SVT which initially was diagnosed back in 2019. She was referred to EP at [facility] and plan is to perform radiofrequency ablation after she had weight loss. Patient states she is down about 150 pounds now and continues to lose weight with the goal of having ablation done. She has had intermittent episodes since that 2019 event. Upon presentation she was immediately noted to be hypotensive with heart rates from 160-170. Patient was cardioverted but remains somewhat hypotensive and troponin was noted to be elevated. Case was discussed with Dr. Sultana who suggested admission. At the time of my evaluation, the patient was asymptomatic and heart rate remained in sinus rhythm. Vital signs on presentation showed a temperature of 97.8, heart rate 163, respiratory rate 18, blood pressure was 60/34 with a pulse ox of 100% on room air. After cardioversion heart rate was 81 with blood pressure 85/65 at the time of admission. CBC was overall unremarkable. Coags are normal. Chemistry panel was overtly unremarkable with slight hyperglycemia showing a blood glucose level 120. Initial troponin was 393 with a subsequent delta troponin at 1158. Initial EKG showed narrow complex tachycardia with a rate of 165 and normal intervals with follow-up EKG showing sinus rhythm, normal axis, normal intervals and ST-T wave changes concerning for acute ischemia. Given her persistent hypotension and risk for SVT she was admitted to the ICU. [facility] Medical History Cluster B personality disorder MDD (major depressive disorder) Polycystic ovaries Hx of headache Arthritis Smoking greater than 20 pack years Irregular heart beat Pneumonia due to 2019 novel coronavirus TAMMI on CPAP Essential hypertension Tobacco use Morbid obesity HLD (hyperlipidemia) Supraventricular tachycardia Fibromyalgia Type 2 diabetes mellitus Osteoporosis Bronchitis Agoraphobia Depression Asthma Anxiety Home Medications ?Medication ?Instructions ?Recorded ?Last Taken ?Type albuterol sulfate 2.5 mg/3 mL 2.5 mg (3 mL) inhalation Q4H PRN 09/22/21 Unknown Rx (0.083 %) solution for nebulization Sob &/Or Wheezing #180 mL albuterol sulfate 90 mcg/actuation 1 - 2 puff inhalation Q4H PRN PRN 09/22/21 Unknown Rx aerosol inhaler Wheezing #8.5 grams multivitamin (Daily Multi-Vitamin 1 tab PO DAILY 08/16/22 Unknown History tablet) metoprolol tartrate 50 mg tablet See Rx Instructions .Route 03/23/23 Unknown Rx .COMPLEX #180 TABLETS trazodone 50 mg tablet 75 mg (1.5 x 50 mg) PO QHS #45 tabs 04/03/23 Unknown Rx duloxetine 60 mg capsule,delayed 60 mg PO BID #180 caps 08/30/23 Unknown Rx release hydroxyzine HCl 25 mg tablet 25 mg PO Q8H PRN anxiety #270 tabs 11/05/23 Unknown Rx lamotrigine 100 mg tablet 100 mg PO QDAY #30 tabs 11/06/23 Unknown Rx semaglutide 1 mg/dose (4 mg/3 mL) 1 mg subcut TH 12/02/23 Unknown History subcutaneous pen injector (Ozempic) tramadol 50 mg tablet 50 mg PO TID PRN PRN pain 12/02/23 Unknown History Allergy/AdvReac Type Severity Reaction Status Date / Time No Known Drug Allergies Allergy Mild Other Verified 12/16/23 05:49 Family History Father Diabetes Colon cancer Cancer Liver Cancer Mother Hypertension Arthritis Mental disorder Diabetes Grandfather Alcoholism Grandfather Alcoholism Grandmother Cancer bone Other Anxiety Osteoporosis Surgical History H/O gastric sleeve H/O colonoscopy with polypectomy History of left knee replacement History of delivery History of tonsillectomy Social History household members: spouse current occupational status: unemployed current occupational exposures/hazards: No pets and animals: Yes history of recent travel: Yes sexually active: No Smoking Status: Former smoker quit date: 02/05/17 pack-years: 30 Electronic Cigarette Use: not used alcohol intake: never substance use type: does not use diet: other caffeine: Yes (cutting back on caffeine) luanne/yazidi: Non-Holiness/Independent seatbelt use: always do you feel safe at home: Yes additional social history: [place] - Spouse, Kids - Rakan and elsa DANIA Constitutional Constitutional: Denies anorexia, change in weight, chills, fatigue, fever(s), malaise, night sweats, weakness or other Eyes Eyes: Denies blurry vision, change in eye color, change in vision, discharge from eye(s), double vision, erythema, eye pain, loss of vision or other ENT HEENT: Denies abnormal hearing, dysphagia, ear pain, epistaxis, headache(s), hearing loss, nasal congestion, nasal discharge, post nasal drip, sinus pressure, sore throat or other Cardiovascular Cardiovascular: Reports chest pain, palpitations and rapid heart rate; Denies claudication, dyspnea on exertion, edema, lightheadedness, orthopnea, paroxysmal nocturnal dyspnea, syncope or other Respiratory/Chest Respiratory/Chest: Reports shortness of breath at rest; Denies cough, dyspnea, excessive phlegm production, hemoptysis, productive cough, shortness of breath with exertion, wheezing or other Gastrointestinal Gastrointestinal: Denies abdominal pain, coffee ground emesis, constipation, diarrhea, dyspepsia, hematemesis, hematochezia, loose stools, melena, nausea, vomiting or other Genitourinary Genitourinary: Denies burning urination, difficulty urinating, dysuria, hematuria, nocturia, urinary frequency, urinary hesitancy, urinary incontinence, urinary urgency or other Musculoskeletal Musculoskeletal: Denies arthralgias, back pain, joint pain, joint stiffness, joint swelling, myalgias, neck pain or other Neurologic Neurologic: Denies abnormal gait, abnormal speech, confusion, disequilibrium, dizziness, focal weakness, headache(s), numbness, paresthesias, seizure-like activity, seizures, syncope, tingling, tremor(s) or other Psychiatric Psychiatric: Denies anxiety, depression, homicidal ideation, suicidal ideation or other Endocrine Endocrinology: Denies change in body appearance, cold intolerance, excessive sweating, heat intolerance, polydipsia, polyuria or other Hematologic/Lymphatic Hematologic/Lymphatic: Denies anemia, easy bleeding, easy bruising, lymphadenopathy or other Allergic/Immunologic Allergic/Immunologic: Denies rhinitis, hives, eczemia, asthma or other Vital Signs Vital Signs Vital Signs: 12/16/23 05:51 12/16/23 05:55 12/16/23 06:11 Temperature 97.8 F Temperature Source Oral Pulse Rate 163 H Pulse Rate [1 (Initial Baseline)] Pulse Rate [4] Pulse Rate [5] Pulse Rate [6] Respiratory Rate 18 Respiratory Rate [1 (Initial Baseline)] Respiratory Rate [4] Respiratory Rate [5] Respiratory Rate [6] Respiratory Effort Short of Breath Labored Blood Pressure 60/34 L Blood Pressure [1 (Initial Baseline)] Blood Pressure [6] Blood Pressure Mean 42 Pulse Ox 100 Oxygen Delivery Method Room Air Oxygen Delivery Method [1 (Initial Baseline)] Oxygen Delivery Method [4] Oxygen Delivery Method [5] Oxygen Delivery Method [6] EtCo2 (Normal 35-45 , high quality CPR 10-20 & ROSC>/=40mmHg 35 EtCo2 (Normal 35-45 , high quality CPR 10-20 & ROSC>/=40mmHg [1 (Initial Baseline)] EtCo2 (Normal 35-45 , high quality CPR 10-20 & ROSC>/=40mmHg [4] EtCo2 (Normal 35-45 , high quality CPR 10-20 & ROSC>/=40mmHg [5] EtCo2 (Normal 35-45 , high quality CPR 10-20 & ROSC>/=40mmHg [6] 12/16/23 06:15 12/16/23 06:15 12/16/23 06:20 Temperature 97.8 F Temperature Source Pulse Rate 168 H Pulse Rate [1 (Initial Baseline)] 168 H Pulse Rate [4] 165 H Pulse Rate [5] 165 H Pulse Rate [6] 70 Respiratory Rate 18 Respiratory Rate [1 (Initial Baseline)] 18 Respiratory Rate [4] 18 Respiratory Rate [5] 18 Respiratory Rate [6] 18 Respiratory Effort Blood Pressure 52/38 L Blood Pressure [1 (Initial Baseline)] 52/38 L Blood Pressure [6] 42/25 L Blood Pressure Mean Pulse Ox 100 Oxygen Delivery Method Room Air Room Air Oxygen Delivery Method [1 (Initial Baseline)] Room Air Oxygen Delivery Method [4] Room Air Oxygen Delivery Method [5] Room Air Oxygen Delivery Method [6] Room Air EtCo2 (Normal 35-45 , high quality CPR 10-20 & ROSC>/=40mmHg 35 33 EtCo2 (Normal 35-45 , high quality CPR 10-20 & ROSC>/=40mmHg [1 (Initial Baseline)] 35 EtCo2 (Normal 35-45 , high quality CPR 10-20 & ROSC>/=40mmHg [4] 34 EtCo2 (Normal 35-45 , high quality CPR 10-20 & ROSC>/=40mmHg [5] 35 EtCo2 (Normal 35-45 , high quality CPR 10-20 & ROSC>/=40mmHg [6] 33 12/16/23 06:25 12/16/23 06:30 12/16/23 06:35 Temperature Temperature Source Pulse Rate Pulse Rate [1 (Initial Baseline)] Pulse Rate [4] Pulse Rate [5] Pulse Rate [6] Respiratory Rate Respiratory Rate [1 (Initial Baseline)] Respiratory Rate [4] Respiratory Rate [5] Respiratory Rate [6] Respiratory Effort Blood Pressure Blood Pressure [1 (Initial Baseline)] Blood Pressure [6] Blood Pressure Mean Pulse Ox Oxygen Delivery Method Room Air Room Air Room Air Oxygen Delivery Method [1 (Initial Baseline)] Oxygen Delivery Method [4] Oxygen Delivery Method [5] Oxygen Delivery Method [6] EtCo2 (Normal 35-45 , high quality CPR 10-20 & ROSC>/=40mmHg 35 35 36 EtCo2 (Normal 35-45 , high quality CPR 10-20 & ROSC>/=40mmHg [1 (Initial Baseline)] EtCo2 (Normal 35-45 , high quality CPR 10-20 & ROSC>/=40mmHg [4] EtCo2 (Normal 35-45 , high quality CPR 10-20 & ROSC>/=40mmHg [5] EtCo2 (Normal 35-45 , high quality CPR 10-20 & ROSC>/=40mmHg [6] 12/16/23 06:48 12/16/23 07:00 12/16/23 08:00 Temperature Temperature Source Pulse Rate 81 80 73 Pulse Rate [1 (Initial Baseline)] Pulse Rate [4] Pulse Rate [5] Pulse Rate [6] Respiratory Rate 18 14 16 Respiratory Rate [1 (Initial Baseline)] Respiratory Rate [4] Respiratory Rate [5] Respiratory Rate [6] Respiratory Effort Blood Pressure 43/34 L 85/65 L 82/59 L Blood Pressure [1 (Initial Baseline)] Blood Pressure [6] Blood Pressure Mean 37 71 66 Pulse Ox 99 99 100 Oxygen Delivery Method Room Air Room Air Oxygen Delivery Method [1 (Initial Baseline)] Oxygen Delivery Method [4] Oxygen Delivery Method [5] Oxygen Delivery Method [6] EtCo2 (Normal 35-45 , high quality CPR 10-20 & ROSC>/=40mmHg EtCo2 (Normal 35-45 , high quality CPR 10-20 & ROSC>/=40mmHg [1 (Initial Baseline)] EtCo2 (Normal 35-45 , high quality CPR 10-20 & ROSC>/=40mmHg [4] EtCo2 (Normal 35-45 , high quality CPR 10-20 & ROSC>/=40mmHg [5] EtCo2 (Normal 35-45 , high quality CPR 10-20 & ROSC>/=40mmHg [6] Weight Weight: 118.7 kg Body Mass Index (BMI) 42.2 Physical Exam Const alert, oriented x3, no apparent distress and well nourished; Negative for average body habitus or healthy appearing Constitutional Narrative: Morbidly obese, white female, sitting up in bed, nursing at bedside, currently appears comfortable and does not appear toxic HEENT normocephalic, head/scalp atraumatic, hearing grossly normal bilaterally and moist oral mucous membranes HEENT Narrative: Mallampati 3, no thrush, dentition is good Eyes conjunctivae normal Eyes Narrative: No scleral icterus Neck no lymphadenopathy and supple Neck Narrative: Trachea midline, no thyroid enlargement noted Resp normal respiratory effort, no retractions, no use of accessory muscles and clear to auscultation bilaterally Auscultation: Negative for rales, rhonchi or wheezes Cardio regular rate, regular rhythm, S1 normal heart sound, S2 normal heart sound, no murmurs, no rub, no gallops and no clicks GI normal to inspection, nondistended, normoactive bowel sounds, soft to palpation and non-tender GI Narrative: Protuberant abdomen Extremity no clubbing, cyanosis or edema Extremity Narrative: Pedal and radial pulses are 2+ bilaterally Neuro oriented x3, moves all extremities and no focal motor deficits Speech: speech normal Psych affect normal Psych Narrative: Very pleasant, eye contact is good, patient interacts appropriately Results Lab / Micro Data 12/16/23 13:40 12/16/23 05:55 Labs: Laboratory Results - last 24 hr 12/16/23 05:55: WBC 13.9 H, RBC 4.76, Hgb 15.0, Hct 43.8, MCV 92.0, MCH 31.5, MCHC 34.2, RDW Std Deviation 43.0, RDW Coeff of Milo 12.8, Plt Count 369, MPV 10.0, Immature Gran % (Auto) 0.400, Neut % (Auto) 43.6 L, Lymph % (Auto) 42.2 H, [place] % (Auto) 7.2, Eos % (Auto) 5.5 H, Baso % (Auto) 1.1 H, Absolute Neuts (auto) 6.1, Absolute Lymphs (auto) 5.88 H, Nucleated RBC % 0, Differential Comment SCANNED, Reactive Lymphocytes 2+, Platelet Estimate ADEQUATE, Sodium 139, Potassium 3.8, Chloride 109 H, Carbon Dioxide 24.0, Anion Gap 6, BUN 24 H, Creatinine 0.74, Estim Creat Clear Calc 108.66, Est GFR (MDRD) Af Amer 104, Est GFR (MDRD) Non-Af 86, BUN/Creatinine Ratio 32.5 H, Glucose 120 H, Calcium 9.3, Troponin I High Sens 393 H* 12/16/23 08:15: Troponin I High Sens 1158 H* Rhythm Strip Rhythm Strip: SVT Rate: 162 Ectopy: PVC(s) (Rare) Assessment & Plan Assessment/Plan (1) Non-STEMI (non-ST elevated myocardial infarction): (2) Acute hypotension: (3) Chest pain: (4) Elevated troponin I level: PLAN: Plan SVT -Patient with known history of intermittent SVT initially diagnosed in 2019 -Required cardioversion emergency department due to hypotension with SVT -Follows with EP at [facility] and plan is to do a radiofrequency ablation once she has lost weight -She is down 150 pounds and hoping to proceed with this soon -Hold home metoprolol as she was placed on diltiazem by cardiology -Continue to monitor on telemetry -Cardiology is consulted Acute hypotension -Patient had this before and after cardioversion -Initial systolic blood pressure after cardioversion was 82 -Admitted to the ICU due to hypotension and intermittent SVT -Patient was placed on Cardizem by cardiology Chest pain with troponin elevation -Troponin elevation is post SVT and cardioversion however patient was having associated chest pain prior to coming to the emergency department -She was given Lovenox x 1 dose in the emergency department -Check lipid panel -Check hemoglobin A1c -Start aspirin 81 mg daily -Start high intensity dose statin -Check echocardiogram in a.m. -Cardiology consulted and plan is for cardiac catheterization in morning History of DM-2 -On Ozempic as an outpatient -Hold Ozempic while hospitalized -Accu-Cheks 3 times daily AC -SSI -Hemoglobin A1c pending for cardiac workup Essential hypertension -Hold metoprolol -Diltiazem started by cardiology -Was hypotensive at the time of admission History of asthma -As needed albuterol -No current signs of respiratory issues Obstructive sleep apnea -Continue home BiPAP Depression/anxiety -Continue home duloxetine -Continue home hydroxyzine -Continue home Lamictal -Continue home trazodone Chronic pain -Continue home Ultram History of tobacco abuse -Remote -Encouraged ongoing cessation Morbid obesity -BMI is 41.7 -patient is currently working on weight loss and has lost a total of 150 pounds -Encouraged on going weight loss that she is doing quite well -Complicates treatment, prognosis, outcomes DVT prophylaxis -Heparin drip per cardiology -Was given therapeutic Lovenox in the emergency department CODE STATUS -Full code as verified Charges/Coding Visit Charges Inpatient E&M: 36690 Init Hosp L2
--- NOTE | 2023-12-16 10:20 | ECHOD_ITS ---
Reason For Study: Arrhythmia Procedure This was a 2D Doppler, Color Flow transthoracic echocardiogram. Exam performed portable in patient room. Left Ventricle Normal LV size. Left ventricular systolic function is normal. The left ventricular ejection fraction is 65 %. No regional wall motion abnormalities noted. Right Ventricle Normal RV size. Normal systolic function. Atria Normal left atrium. Normal right atrium. Bubble contrast study negative for right to left interatrial shunt. Mitral Valve Normal mitral valve. Tricuspid Valve Normal tricuspid valve. Mild tricuspid valve insufficiency. Pulmonary artery systolic pressure is 20 mmHg. Aortic Valve Trisinus/trileaflet aortic valve. Pulmonic Valve Normal pulmonic valve. Great Vessels Normal aortic root. The pulmonary artery is normal size. Normal inferior vena cava. Pericardium/Pleural No pericardial effusion. MMode/2D Measurements & Calculations LVIDd: 4.7 cm IVSd: 1.0 cm LVOT diam: 2.1 cm LVIDs: 3.1 cm LVPWd: 1.1 cm LVOT area: 3.3 cm2 RVDd: 3.1 cm FS: 34.1 % asc Aorta Diam: 3.7 cm LAV(MOD-bp): 80.5 ml LVAd ap4: 32.2 cm2 LAV(MOD-bp) Indexed: 36.2 ml/m2 LVLd ap4: 8.0 cm LAV(MOD-sp2): 78.8 ml EDV(MOD-sp4): 110.3 ml LAV(MOD-sp4): 80.5 ml EDV(sp4-el): 110.1 ml LVAs ap4: 18.4 cm2 LVLs ap4: 6.4 cm ESV(MOD-sp4): 46.0 ml ESV(sp4-el): 45.0 ml EF(MOD-sp4): 58.3 % EF(sp4-el): 59.1 % LVAd ap2: 32.0 cm2 SV(MOD-sp4): 64.3 ml SV(MOD-sp2): 71.7 ml LVLd ap2: 8.3 cm SI(MOD-sp4): 28.9 ml/m2 SI(MOD-sp2): 32.2 ml/m2 EDV(MOD-sp2): 105.5 ml EDV(sp2-el): 104.3 ml LVAs ap2: 16.2 cm2 LVLs ap2: 6.8 cm ESV(MOD-sp2): 33.8 ml ESV(sp2-el): 32.7 ml EF(MOD-sp2): 67.9 % SV(sp4-el): 65.1 ml LA dimension(2D): 4.1 cm LA A4 area: 25.2 cm2 RA A4 area: 16.8 cm2 TAPSE: 2.3 cm Time Measurements MV dec time: 0.23 sec Doppler Measurements & Calculations MV E max cody: 85.8 cm/sec Lat Peak E' Cody: 7.1 cm/sec Med Peak E' Cody: 9.2 cm/sec MV A max cody: 91.3 cm/sec E/E' lat: 12.2 E/E' med: 9.3 MV E/A: 0.94 Ao V2 max: 167.5 cm/sec LV V1 max: 114.4 cm/sec MV dec slope: 378.5 cm/sec2 Ao max P.2 mmHg LV V1 max P.2 mmHg Ao V2 mean: 119.3 cm/sec LV V1 mean P.7 mmHg Ao mean P.2 mmHg LV V1 mean: 95.0 cm/sec Ao V2 VTI: 35.8 cm LV V1 VTI: 27.1 cm AV (velocity ratio): 0.76 EMILIE(I,D): 2.5 cm2 EMILIE(V,D): 2.3 cm2 SV(LVOT): 90.8 ml PA V2 max: 97.3 cm/sec TR max cody: 205.5 cm/sec TR max P.9 mmHg ECHO/Echo Complete Interpretation Summary Normal LV size. Left ventricular systolic function is normal. The left ventricular ejection fraction is 65 %. Bubble contrast study negative for right to left interatrial shunt. Pulmonary artery systolic pressure is 20 mmHg. Ordering Physician: Cindy Chaidez Referring Physician: Fabi Cisneros Performed By: Carla Sepulveda RDCS
[2023-12-16 11:05] LABS: Troponin-I HS 1325 pg/mL (3.0-54.0)
--- NOTE | 2023-12-16 12:49 | CON.PCM.CA_ITS ---
<Statement entered by Jaimee Sultana MD - 12/28/23 14:56> Pt seen & evaluated w/MARLENE. I personally interviewed & exam the pt. I was involved in all aspects of pt's orders, interpretation of results & treatment HPI Consult Data Date of Consult: 12/28/23 HPI Narrative Reason for Consultation: SVT/non-STEMI HPI Narrative: LOUISE DALEY, is a 58 F who presents [facility] Medical History Cluster B personality disorder MDD (major depressive disorder) Polycystic ovaries Hx of headache Arthritis Smoking greater than 20 pack years Irregular heart beat Pneumonia due to 2019 novel coronavirus TAMMI on CPAP Essential hypertension Tobacco use Morbid obesity HLD (hyperlipidemia) Supraventricular tachycardia Fibromyalgia Type 2 diabetes mellitus Osteoporosis Bronchitis Agoraphobia Depression Asthma Anxiety Home Medications ?Medication ?Instructions ?Recorded ?Last Taken ?Type albuterol sulfate 2.5 mg/3 mL 2.5 mg (3 mL) inhalation Q4H PRN 09/22/21 Unknown Rx (0.083 %) solution for nebulization Sob &/Or Wheezing #180 mL albuterol sulfate 90 mcg/actuation 1 - 2 puff inhalation Q4H PRN PRN 09/22/21 Unknown Rx aerosol inhaler Wheezing #8.5 grams multivitamin (Daily Multi-Vitamin 1 tab PO DAILY vitamin 08/16/22 Unknown History tablet) trazodone 50 mg tablet 75 mg (1.5 x 50 mg) PO QHS sleep 04/03/23 Unknown Rx #45 tabs duloxetine 60 mg capsule,delayed 60 mg PO BID mental health #180 08/30/23 12/27/23 Rx release caps hydroxyzine HCl 25 mg tablet 25 mg PO Q8H PRN anxiety #270 tabs 11/05/23 12/27/23 Rx lamotrigine 100 mg tablet 100 mg PO QDAY seizures #30 tabs 11/06/23 12/27/23 Rx semaglutide 1 mg/dose (4 mg/3 mL) 1 mg subcut TH 12/02/23 Unknown History subcutaneous pen injector (Ozempic) tramadol 50 mg tablet 50 mg PO TID PRN PRN pain 12/02/23 Unknown History Allergy/AdvReac Type Severity Reaction Status Date / Time No Known Drug Allergies Allergy Mild Other Verified 12/16/23 05:49 Family History Father Diabetes Colon cancer Cancer Liver Cancer Mother Hypertension Arthritis Mental disorder Diabetes Grandfather Alcoholism Grandfather Alcoholism Grandmother Cancer bone Other Anxiety Osteoporosis Surgical History H/O gastric sleeve H/O colonoscopy with polypectomy History of left knee replacement History of delivery History of tonsillectomy Social History household members: spouse current occupational status: unemployed current occupational exposures/hazards: No pets and animals: Yes history of recent travel: Yes sexually active: No Smoking Status: Former smoker quit date: 02/05/17 pack-years: 30 Electronic Cigarette Use: not used alcohol intake: never substance use type: does not use diet: other caffeine: Yes (cutting back on caffeine) luanne/jainism: Non-Yazidi/Independent seatbelt use: always do you feel safe at home: Yes additional social history: [place] - Spouse, Kids - Rakan and elsa Risk Stratification Risk Stratification Applicable: No Objective Data Vital Signs: Vital Signs Temp Pulse Resp BP Pulse Ox O2 Del Method 97.3 F L 76 12 102/56 L 98 Room Air 12/16/23 10:30 12/16/23 11:30 12/16/23 11:30 12/16/23 11:30 12/16/23 11:30 12/16/23 11:30 Oxygen Delivery Method [6] Room Air Oxygen Delivery Method [5] Room Air Oxygen Delivery Method [4] Room Air Oxygen Delivery Method [1 ( Room Air Initial Baseline)] Oxygen Delivery Method Room Air Weight: 258 lb 9.6 oz Body Mass Index (BMI) 41.7 Intake & Output: Intake and Output for Last 24 Hours 12/14/23 12/15/23 12/16/23 23:59 23:59 23:59 Intake Total 1000 / 1000 Balance 1000 / 1000 Lab / Micro Data 12/17/23 04:48 12/17/23 04:48 Labs: Laboratory Results - last 24 hr 12/16/23 05:55: WBC 13.9 H, RBC 4.76, Hgb 15.0, Hct 43.8, MCV 92.0, MCH 31.5, MCHC 34.2, RDW Std Deviation 43.0, RDW Coeff of Milo 12.8, Plt Count 369, MPV 10.0, Immature Gran % (Auto) 0.400, Neut % (Auto) 43.6 L, Lymph % (Auto) 42.2 H, [place] % (Auto) 7.2, Eos % (Auto) 5.5 H, Baso % (Auto) 1.1 H, Absolute Neuts (auto) 6.1, Absolute Lymphs (auto) 5.88 H, Nucleated RBC % 0, Differential Comment SCANNED, Reactive Lymphocytes 2+, Platelet Estimate ADEQUATE, Sodium 139, Potassium 3.8, Chloride 109 H, Carbon Dioxide 24.0, Anion Gap 6, BUN 24 H, Creatinine 0.74, Estim Creat Clear Calc 108.66, Est GFR (MDRD) Af Amer 104, Est GFR (MDRD) Non-Af 86, BUN/Creatinine Ratio 32.5 H, Glucose 120 H, Calcium 9.3, T roponin I High Sens 393 H* 12/16/23 08:15: Troponin I High Sens 1158 H* 12/16/23 10:25: Troponin I High Sens 1325 H* Rhythm Strip Rhythm Strip: SVT Rate: 162 Ectopy: PVC(s) (Rare) Cardiology Labs/Tests 12/16/23 05:55: WBC 13.9 H, RBC 4.76, Hgb 15.0, Hct 43.8, MCV 92.0, MCH 31.5, MCHC 34.2, Plt Count 369, MPV 10.0, Immature Gran % (Auto) 0.400, Neut % (Auto) 43.6 L, Lymph % (Auto) 42.2 H, Emery % (Auto) 7.2, Eos % (Auto) 5.5 H, Baso % (Auto) 1.1 H, Absolute Neuts (auto) 6.1, Nucleated RBC % 0, Sodium 139, Potassium 3.8, Chloride 109 H, Carbon Dioxide 24.0, Anion Gap 6, BUN 24 H, Creatinine 0.74, Est GFR (MDRD) Af Amer 104, Est GFR (MDRD) Non-Af 86, B UN/Creatinine Ratio 32.5 H, Glucose 120 H, Calcium 9.3 Rhythm: EKG: ECHO: Stress Test: Cardiac Cath: PCI: CT Surgery: Holter monitor: EPS: PPM: CXR: Chest CT Scan:
--- NOTE | 2023-12-16 12:59 | PCM.CONS.C ---
Assessment & Plan Assessment/Plan (1) Chest pain: (2) Essential hypertension: (3) Asthma: QUALIFIERS: Asthma severity: mild Asthma persistence: intermittent Asthma complication type: uncomplicated Qualified Code(s): J45.20 - Mild intermittent asthma, uncomplicated (4) Supraventricular tachycardia: (5) Non-STEMI (non-ST elevated myocardial infarction): PLAN: 58-year-old patient who developed sudden onset of rapid palpitations She has symptoms of lightheadedness. Patient with known history of SVT She was seen and followed at the [facility] with the EP and advised weight loss provide prior to ablation of SVT. 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 TAMMI and has been on CPAP History of SVT which converted to sinus rhythm She could not tolerated very well beta-mikki in the past I started the patient on calcium channel mikki using Cardizem CD 120 mg Started on heparin. With the plan of evaluating with echocardiogram prior echocardiogram LV function is preserved She is scheduled for cardiac catheterization to assess for CAD. Once stable plan will be to refer her back to the EP to discuss plan of SVT ablation. As she has recurrent episodes of SVT not responding well to medical treatment. Jaimee Sultana MD,[facility] HPI Consult Data Date of Consult: 12/16/23 HPI Narrative Reason for Consultation: SVT/non-STEMI HPI Narrative: LOUISE DALEY, is a 58 F who presents [facility] Medical History Cluster B personality disorder MDD (major depressive disorder) Polycystic ovaries Hx of headache Arthritis Smoking greater than 20 pack years Irregular heart beat Pneumonia due to 2019 novel coronavirus TAMMI on CPAP Essential hypertension Tobacco use Morbid obesity HLD (hyperlipidemia) Supraventricular tachycardia Fibromyalgia Type 2 diabetes mellitus Osteoporosis Bronchitis Agoraphobia Depression Asthma Anxiety Home Medications ?Medication ?Instructions ?Recorded ?Last Taken ?Type albuterol sulfate 2.5 mg/3 mL 2.5 mg (3 mL) inhalation Q4H PRN 09/22/21 Unknown Rx (0.083 %) solution for nebulization Sob &/Or Wheezing #180 mL albuterol sulfate 90 mcg/actuation 1 - 2 puff inhalation Q4H PRN PRN 09/22/21 Unknown Rx aerosol inhaler Wheezing #8.5 grams multivitamin (Daily Multi-Vitamin 1 tab PO DAILY 08/16/22 Unknown History tablet) metoprolol tartrate 50 mg tablet See Rx Instructions .Route 03/23/23 Unknown Rx .COMPLEX #180 TABLETS trazodone 50 mg tablet 75 mg (1.5 x 50 mg) PO QHS #45 tabs 04/03/23 Unknown Rx duloxetine 60 mg capsule,delayed 60 mg PO BID #180 caps 08/30/23 Unknown Rx release hydroxyzine HCl 25 mg tablet 25 mg PO Q8H PRN anxiety #270 tabs 11/05/23 Unknown Rx lamotrigine 100 mg tablet 100 mg PO QDAY #30 tabs 11/06/23 Unknown Rx semaglutide 1 mg/dose (4 mg/3 mL) 1 mg subcut TH 12/02/23 Unknown History subcutaneous pen injector (Ozempic) tramadol 50 mg tablet 50 mg PO TID PRN PRN pain 12/02/23 Unknown History Allergy/AdvReac Type Severity Reaction Status Date / Time No Known Drug Allergies Allergy Mild Other Verified 12/16/23 05:49 Family History Father Diabetes Colon cancer Cancer Liver Cancer Mother Hypertension Arthritis Mental disorder Diabetes Grandfather Alcoholism Grandfather Alcoholism Grandmother Cancer bone Other Anxiety Osteoporosis Surgical History H/O gastric sleeve H/O colonoscopy with polypectomy History of left knee replacement History of delivery History of tonsillectomy Social History household members: spouse current occupational status: unemployed current occupational exposures/hazards: No pets and animals: Yes history of recent travel: Yes sexually active: No Smoking Status: Former smoker quit date: 02/05/17 pack-years: 30 Electronic Cigarette Use: not used alcohol intake: never substance use type: does not use diet: other caffeine: Yes (cutting back on caffeine) luanne/zoroastrianism: Non-Mu-Ism/Independent seatbelt use: always do you feel safe at home: Yes additional social history: [place] - Spouse, Kids - Rakan and elsa Physical Exam Cardio Cardio Narrative: Patient seen and evaluated in ICU along with the nursing staff She is comfortable lying in bed Does not have any active chest pain The monitor car operator showed underlying normal sinus rhythm. Cardiac examination S1-S2 is regular Chest examination clear to auscultation bilateral Examination lower extremity no lower extremity edema Pedal pulses palpable. Risk Stratification Risk Stratification Applicable: No Objective Data Vital Signs: Vital Signs Temp Pulse Resp BP Pulse Ox O2 Del Method 97.3 F L 76 12 102/56 L 98 Room Air 12/16/23 10:30 12/16/23 11:30 12/16/23 11:30 12/16/23 11:30 12/16/23 11:30 12/16/23 11:30 Oxygen Delivery Method [6] Room Air Oxygen Delivery Method [5] Room Air Oxygen Delivery Method [4] Room Air Oxygen Delivery Method [1 ( Room Air Initial Baseline)] Oxygen Delivery Method Room Air Weight: 258 lb 9.6 oz Body Mass Index (BMI) 41.7 Intake & Output: Intake and Output for Last 24 Hours 12/14/23 12/15/23 12/16/23 23:59 23:59 23:59 Intake Total 1000 / 1000 Balance 1000 / 1000 Lab / Micro Data 12/16/23 05:55 12/16/23 05:55 Labs: Laboratory Results - last 24 hr 12/16/23 05:55: WBC 13.9 H, RBC 4.76, Hgb 15.0, Hct 43.8, MCV 92.0, MCH 31.5, MCHC 34.2, RDW Std Deviation 43.0, RDW Coeff of Milo 12.8, Plt Count 369, MPV 10.0, Immature Gran % (Auto) 0.400, Neut % (Auto) 43.6 L, Lymph % (Auto) 42.2 H, [place] % (Auto) 7.2, Eos % (Auto) 5.5 H, Baso % (Auto) 1.1 H, Absolute Neuts (auto) 6.1, Absolute Lymphs (auto) 5.88 H, Nucleated RBC % 0, Differential Comment SCANNED, Reactive Lymphocytes 2+, Platelet Estimate ADEQUATE, Sodium 139, Potassium 3.8, Chloride 109 H, Carbon Dioxide 24.0, Anion Gap 6, BUN 24 H, Creatinine 0.74, Estim Creat Clear Calc 108.66, Est GFR (MDRD) Af Amer 104, Est GFR (MDRD) Non-Af 86, BUN/Creatinine Ratio 32.5 H, Glucose 120 H, Calcium 9.3, Troponin I High Sens 393 H* 12/16/23 08:15: Troponin I High Sens 1158 H* 12/16/23 10:25: Troponin I High Sens 1325 H* Rhythm Strip Rhythm Strip: SVT Rate: 162 Ectopy: PVC(s) (Rare) Cardiology Labs/Tests 12/16/23 05:55: WBC 13.9 H, RBC 4.76, Hgb 15.0, Hct 43.8, MCV 92.0, MCH 31.5, MCHC 34.2, Plt Count 369, MPV 10.0, Immature Gran % (Auto) 0.400, Neut % (Auto) 43.6 L, Lymph % (Auto) 42.2 H, [place] % (Auto) 7.2, Eos % (Auto) 5.5 H, Baso % (Auto) 1.1 H, Absolute Neuts (auto) 6.1, Nucleated RBC % 0, Sodium 139, Potassium 3.8, Chloride 109 H, Carbon Dioxide 24.0, Anion Gap 6, BUN 24 H, Creatinine 0.74, Est GFR (MDRD) Af Amer 104, Est GFR (MDRD) Non-Af 86, BUN/Creatinine Ratio 32.5 H, Glucose 120 H, Calcium 9.3 Rhythm: EKG: ECHO: Stress Test: Cardiac Cath: PCI: CT Surgery: Holter monitor: EPS: PPM: CXR: Chest CT Scan:
[2023-12-16 13:51] LABS: Absolute Lymphocyte Count 2.49 X10^3/uL (0.83-4.51); Basophil# 0.09 X10^3/uL; Eosinophil# 0.48 X10^3/uL; Eosinophils% 5.5 % (0-5); Hematocrit 38.4 % (37-47); Lymphocyte # 2.49 X10^3/ul (0.83-4.51); Lymphocyte % 28.4 % (19-41); Mean Corp Hgb Conc 33.9 g/dL (32-36); Mean Corpuscular Volume 91.4 fL (81-99); Mean Platelet Vol. 9.9 fl (6.2-12.0); Monocyte# 0.65 X10^3/uL; Monocyte% 7.4 % (0-10); NRBC Flagged by Analyzer 0 % (0-5); Neutrophil # 5.04 X10^3/uL (2.7-7.7); Neutrophil % 57.4 % (47-70); Platelet Count 268 K/mm3 (150-450); RBC Distribution Width CV 12.8 % (11.6-14.6); RBC Distribution Width SD 42.3 fl (35.1-43.9); White Blood Count 8.8 K/mm3 (4.4-11.0)
[2023-12-16 14:04] LABS: Prothrombin Time (Protime)PT. 13.6 SECONDS (11.7-14.9)
[2023-12-16 14:13] LABS: Partial Thromboplast Time 31.7 Seconds (24.1-36.2)
[2023-12-16] MEDS: HEPARIN/D5w 25,000 UNITS 25,000 UNITS/250 ML IV.SOLN. 10 UNITS CONT INF (14:17)
[2023-12-16] MEDS: dilTIAZem CD 120 MG Capsule PO (14:22)
[2023-12-16] MEDS: Multivitamins,Therapeutic Tablet 1 TABLET PO (14:23)
[2023-12-16] MEDS: DULoxetine Hcl 60 MG Capsule PO ×2 (14:23→20:37)
[2023-12-16] MEDS: lamoTRIgine 100 MG Tablet PO (14:23)
[2023-12-16] MEDS: 0.9% Saline Lock 10 ML Syringe IV ×2 (14:46→20:37)
[2023-12-16] MEDS: traMADol 50 MG Tablet PO ×2 (17:39→23:41)
[2023-12-16 17:54] LABS: Bedside Glucose 103 mg/dL (74-106)
[2023-12-16] MEDS: Atorvastatin Calcium 80 MG Tablet PO (20:36)
[2023-12-16] MEDS: traZODone 50 MG Tablet 75 MG PO (20:37)
[2023-12-16 20:47] LABS: Partial Thromboplast Time 37.9 Seconds (24.1-36.2)
[2023-12-16] MEDS: Heparin Injection (Vial) 5,000 UNIT/ML VIAL IV (20:58)
[2023-12-16 21:00] LABS: Bedside Glucose 91 mg/dL (74-106)
--- NOTE | 2023-12-16 21:00 | CPS ---
PATIENT SET UP WITH OWN PAP THERAPY FOR THE NIGHT.
[2023-12-16] MEDS: CHLORHEXIDINE GLUC 2% CLOTH 1 EACH TOWELETTE TOPICAL (22:00)
[2023-12-16] MEDS: Senna/Docusate Sodium 1 Tablet 2 TABLET PO (23:40)
[2023-12-16] MEDS: MELATONIN 3 MG TABLET PO (23:41)
[2023-12-17] VITALS (19 sets, daily range): BP systolic 101–138; BP diastolic 58–79; PULSE 61–84; RESP 14–23; TEMP 36.4–37.2; O2SAT 95–100; BMI 41.5
[2023-12-17 04:57] LABS: Absolute Lymphocyte Count 3.52 X10^3/uL (0.83-4.51); Absolute Neutrophil Count 3.5 X10^3/uL (2.0-7.7); Basophil# 0.09 X10^3/uL; Basophil% 1.1 % (0-1); Eosinophil# 0.56 X10^3/uL; Eosinophils% 6.7 % (0-5); Hematocrit 36.6 % (37-47); Hemoglobin 12.5 g/dL (12.0-15.0); Lymphocyte # 3.52 X10^3/ul (0.83-4.51); Lymphocyte % 42.4 % (19-41); Mean Corp Hgb Conc 34.2 g/dL (32-36); Mean Corpuscular Hgb 31.2 pg (27.0-32.0); Mean Corpuscular Volume 91.3 fL (81-99); Mean Platelet Vol. 9.8 fl (6.2-12.0); Monocyte# 0.65 X10^3/uL; Monocyte% 7.8 % (0-10); NRBC Flagged by Analyzer 0 % (0-5); Neutrophil # 3.45 X10^3/uL (2.7-7.7); Neutrophil % 41.6 % (47-70); Platelet Count 238 K/mm3 (150-450); RBC Distribution Width CV 12.8 % (11.6-14.6); RBC Distribution Width SD 42.5 fl (35.1-43.9); Red Blood Count 4.01 M/mm3 (4.2-5.4); White Blood Count 8.3 K/mm3 (4.4-11.0)
--- NOTE | 2023-12-17 05:12 | EKG12_ITS ---
Test Reason : am ekg Blood Pressure : */* mmHG Vent. Rate : 72 BPM Atrial Rate : 72 BPM P-R Int : 154 ms QRS Dur : 80 ms QT Int : 428 ms P-R-T Axes : 60 18 22 degrees QTcB Int : 468 ms Normal sinus rhythm with sinus arrhythmia Normal ECG When compared with ECG of 16-Dec-2023 06:24, MANUAL COMPARISON REQUIRED DATA IS UNCONFIRMED Confirmed by MICHELLE JONES, ENDER ([id number]), design editor RAQUEL GILL ([id number]) on 12/17/2023 12:41:22 PM Referred By: Dm Confirmed By: ENDER MARTINEZ MD
[2023-12-17 05:30] LABS: ALB/GLOB Ratio 1.1 RATIO (0.9-2.4); AST(SGOT) 17 U/L (15-37); Alanine Aminotransfer ALT/SGPT 19 U/L (13-56); Albumin, Serum 2.9 g/dL (3.2-5.0); Alkaline Phosphatase 60 U/L (45-117); Anion Gap 4 (5-15); BUN 17 mg/dL (7-18); BUN/Creat Ratio 31.2 RATIO (10-20); Calcium,Total 8.9 mg/dL (8.5-10.1); Chloride 112 mmol/L (98-107); Cholesterol 188 mg/dL (200); Creatinine, Serum 0.54 mg/dL (0.55-1.02); EST Glomerular Filtration Rate 122 mL/min (>60); Est Glom Filt Rate - Afr Amer 148 mL/min (>60); Estimated Creatinine Clearance 147.61 ml/min; Globulin 2.6 g/dL (2.2-4.2); Glucose 99 mg/dL (74-106); High Density Lipoprotein 45 mg/dL; Magnesium 2.1 mg/dL (1.6-2.6); Potassium 3.4 mmol/L (3.5-5.1); Protein, Total 5.5 g/dL (6.4-8.2); Sodium Level 141 mmol/L (136-145); Triglycerides 164 mg/dL; Very Low Density Lipoprotein 33 mg/dL (5-40)
[2023-12-17] MEDS: Aspirin E.C. 81 MG Tablet PO (05:42)
[2023-12-17] MEDS: CHLORHEXIDINE GLUC 2% CLOTH 1 EACH TOWELETTE TOPICAL (05:42)
[2023-12-17] MEDS: dilTIAZem CD 120 MG Capsule PO (05:43)
[2023-12-17] MEDS: 0.9% Saline Lock 10 ML Syringe IV (05:44)
--- NOTE | 2023-12-17 05:55 | EKG12_ITS ---
Test Reason : CP Blood Pressure : */* mmHG Vent. Rate : 165 BPM Atrial Rate : * BPM P-R Int : * ms QRS Dur : 70 ms QT Int : 284 ms P-R-T Axes : * 21 138 degrees QTcB Int : 470 ms Critical Test Result: High HR Supraventricular tachycardia Nonspecific ST and T wave abnormality Abnormal ECG Confirmed by MICHELLE JONES, ENDER ([id number]), technical editor LORI MANN ([id number]) on 12/17/2023 10:16:30 AM Referred By: Confirmed By: ENDER MARTINEZ MD
[2023-12-17] MEDS: Potassium Chloride Oral Tablet 20 MEQ 40 MEQ PO (06:05)
--- NOTE | 2023-12-17 06:48 | PCM.PN.CARD ---
Subjective Subjective Patient seen and evaluated. Doing better this morning. No further arrhythmias. Objective Data Vital Signs: Vital Signs Temp Pulse Resp BP Pulse Ox O2 Del Method 98.9 F 69 16 105/65 99 Room Air 12/17/23 04:00 12/17/23 06:00 12/17/23 06:00 12/17/23 06:00 12/17/23 06:00 12/17/23 06:00 Oxygen Delivery Method [6] Room Air Oxygen Delivery Method [5] Room Air Oxygen Delivery Method [4] Room Air Oxygen Delivery Method [1 ( Room Air Initial Baseline)] Oxygen Delivery Method Room Air Weight: 257 lb 11.526 oz Body Mass Index (BMI) 41.5 Intake & Output: Intake and Output for Last 24 Hours 12/15/23 12/16/23 12/17/23 23:59 23:59 23:59 Intake Total 1456.67 / 1456.67 95.35 / 95.35 Output Total 225 / 225 600 / 600 Balance 1231.67 / 1231.67 -504.65 / -504.65 Lab / Micro Data 12/17/23 04:48 12/17/23 04:48 Labs: Laboratory Results - last 24 hr 12/16/23 08:15: Troponin I High Sens 1158 H* 12/16/23 10:25: Troponin I High Sens 1325 H* 12/16/23 13:40: WBC 8.8, RBC 4.20, Hgb 13.0, Hct 38.4, MCV 91.4, MCH 31.0, MCHC 33.9, RDW Std Deviation 42.3, RDW Coeff of Milo 12.8, Plt Count 268, MPV 9.9, Immature Gran % (Auto) 0.300, Neut % (Auto) 57.4, Lymph % (Auto) 28.4, [place] % (Auto) 7.4, Eos % (Auto) 5.5 H, Baso % (Auto) 1.0, Absolute Neuts (auto) 5.0, Absolute Lymphs (auto) 2.49, Nucleated RBC % 0, PT 13.6, INR 1.0, APTT 31.7 12/16/23 17:36: POC Glucose 103 12/16/23 20:18: POC Glucose 91 12/16/23 20:28: APTT 37.9 H 12/17/23 03:15: APTT 78.0 H 12/17/23 04:48: WBC 8.3, RBC 4.01 L, Hgb 12.5, Hct 36.6 L, MCV 91.3, MCH 31.2, MCHC 34.2, RDW Std Deviation 42.5, RDW Coeff of Milo 12.8, Plt Count 238, MPV 9.8, Immature Gran % (Auto) 0.400, Neut % (Auto) 41.6 L, Lymph % (Auto) 42.4 H, [place] % (Auto) 7.8, Eos % (Auto) 6.7 H, Baso % (Auto) 1.1 H, Absolute Neuts (auto) 3.5, Absolute Lymphs (auto) 3.52, Nucleated RBC % 0, Sodium 141, Potassium 3.4 L, Chloride 112 H, Carbon Dioxide 25.0, Anion Gap 4 L, BUN 17, Creatinine 0.54 L, Estim Creat Clear Calc 147.61, Est GFR (MDRD) Af Amer 148, Est GFR (MDRD) Non-Af 122, BUN/Creatinine Ratio 31.2 H, Glucose 99, Calcium 8.9, Phosphorus 4.0, Magnesium 2.1, Total Bilirubin 0.40, AST 17, ALT 19, Alkaline Phosphatase 60, Total Protein 5.5 L, Albumin 2.9 L, Globulin 2.6, Albumin/Globulin Ratio 1.1, Triglycerides 164, Cholesterol 188, LDL Cholesterol 110, VLDL Cholesterol 33, HDL Cholesterol 45, TSH 1.500 Rhythm Strip Rhythm Strip: SVT Rate: 162 Ectopy: PVC(s) (Rare) Cardiology Labs/Tests 12/16/23 13:40: WBC 8.8, RBC 4.20, Hgb 13.0, Hct 38.4, MCV 91.4, MCH 31.0, MCHC 33.9, Plt Count 268, MPV 9.9, Immature Gran % (Auto) 0.300, Neut % (Auto) 57.4, Lymph % (Auto) 28.4, [place] % (Auto) 7.4, Eos % (Auto) 5.5 H, Baso % (Auto) 1.0, Absolute Neuts (auto) 5.0, Nucleated RBC % 0, PT 13.6, INR 1.0, APTT 31.7 12/16/23 20:28: APTT 37.9 H 12/17/23 03:15: APTT 78.0 H 12/17/23 04:48: WBC 8.3, RBC 4.01 L, Hgb 12.5, Hct 36.6 L, MCV 91.3, MCH 31.2, MCHC 34.2, Plt Count 238, MPV 9.8, Immature Gran % (Auto) 0.400, Neut % (Auto) 41.6 L, Lymph % (Auto) 42.4 H, [place] % (Auto) 7.8, Eos % (Auto) 6.7 H, Baso % (Auto) 1.1 H, Absolute Neuts (auto) 3.5, Nucleated RBC % 0, Sodium 141, Potassium 3.4 L, Chloride 112 H, Carbon Dioxide 25.0, Anion Gap 4 L, BUN 17, Creatinine 0.54 L, Est GFR (MDRD) Af Amer 148, Est GFR (MDRD) Non-Af 122, BUN/Creatinine Ratio 31.2 H, Glucose 99, Calcium 8.9, Phosphorus 4.0, Magnesium 2.1, Total Bilirubin 0.40, Triglycerides 164, Cholesterol 188, LDL Cholesterol 110, VLDL Cholesterol 33, HDL Cholesterol 45 Rhythm: EKG: ECHO: Stress Test: Cardiac Cath: PCI: CT Surgery: Holter monitor: EPS: PPM: CXR: Chest CT Scan: Physical Exam Const alert, oriented x3 and no apparent distress General Appearance: cooperative HEENT hearing grossly normal bilaterally Head and Scalp: atraumatic Eyes EOMs intact bilaterally Neck General: normal visual inspection Chest inspection of chest normal and palpation of chest normal Resp normal respiratory effort Auscultation: clear to auscultation bilaterally Cardio regular rate, regular rhythm, S1 normal heart sound and S2 normal heart sound Jugular Venous Distention: JVD GI normal to inspection, nondistended, normoactive bowel sounds Extremity normal capillary refill and no pedal edema Peripheral Pulses: Yes pulses 2+ throughout and femoral pulses present Skin no rashes or lesions noted Neuro oriented x3 and CN's II-XII intact bilaterally Psych Appearance: grossly normal and appropriate Assessment & Plan Assessment/Plan (1) Supraventricular tachycardia: PLAN: She does have a history of recurrent supraventricular tachycardia. She is scheduled to have an ablation sometime. I did discuss this with her about the possibility of having it here. I will recommend continuing the beta-mikki at 50 mg of metoprolol twice a day. We will discuss this further later on. Addendum: Cardiac catheterization demonstrated normal coronary arteries Will arrange for her to see EP here and to undergo SVT ablation (2) Elevated troponin I level: PLAN: She has an elevated cardiac troponin enzyme likely secondary to the supraventricular tachycardia as well as the cardioversion. However cardiac catheterization performed this morning demonstrated no obstructive coronary disease. Ejection fraction was preserved. (3) Essential hypertension: PLAN: Blood pressure appears to be under good control at this time I would not make any major changes.
[2023-12-17 07:24] LABS: Bedside Glucose 80 mg/dL (74-106)
--- NOTE | 2023-12-17 08:33 | CL.D_ITS ---
Patient Name: LOUISE DALEY Study Date: 12/17/2023 Performing: Moisés Díaz MD Ht: 66 inches 167.64 cm : 1965 Wt: 258.1 lbs 116.9 kg Age: 58 Gender: female BSA: 2.23 PROCEDURE(S) PERFORMED DC01-([id number])LHC/COR/LV CLINICAL PROFILE AND INDICATIONS Indications: Cardiac Arrythmia Heart Failure: None Stress/Imaging Stress/Image Study Performed: No CAD Presentations: Symptom unlikely to be ischemic. CONCLUSIONS Normal coronary arteries Normal LV size, wall motion,and systolic function RECOMMENDATIONS Will consider SVT ablation. DESCRIPTION OF PROCEDURE The patient arrived to the procedure lab. The risks and benefits of the procedure as well as a full description of our services here and current unavailability of surgical backup were fully explained to the patient and/or their significant other prior to the catheterization. The Timeout was completed, verifying the correct patient and procedure. The patient's procedural site was prepped and draped in the usual fashion. Local anesthetic was given subcutaneously to right radial region with Lidocaine 2%. Using a modified Seldinger technique, arterial access was obtained via the right radial artery, a 6Fr sheath was inserted. Left Coronary Artery selective angiography was performed in multiple views using a 5 Fr. 4.0 Marathon catheter. Right Coronary Artery selective angiography was then performed in multiple views using a 5 Fr. 4.0 Marathon catheter. Left Ventriculography was performed in QUINN projection using a 5 Fr. Pigtail catheter. LV to AO pullback pressures were then recorded.The arterial sheath was pulled and a TR Band was applied for hemostasis w/ 13ml air CORONARY ANGIOGRAPHY DOMINANCE: Co- Dominant LEFT HEART ASSESSMENT Left Ventricular Ejection Fraction: by LV Gram 60 % Normal LV wall motion Normal Left Ventricular systolic function Normal Left Ventricular systolic function LEFT MAIN: Angiographically normal LEFT ANTERIOR DESCENDING ARTERY: Angiographically normal CIRCUMFLEX ARTERY: Angiographically normal RIGHT CORONARY ARTERY: Angiographically normal COMPLICATIONS No Complications PROCEDURE MEDICATIONS Versed 1 mg IV Fentanyl 50 mcg IV Versed 1 mg IV Oxygen: 2 L/min via nasal cannula Heparin given IA 12/17/2023 08:00:08 Verapamil 2.5mg, Ntg 200mcgs, 2000 units of Heparin given IA 12/17/2023 08:00:08 SUMMARY OF HEMODYNAMIC DATA Time AIR REST ECG 07:43:03 AO 132/70 (99) SA 08:04:49 LV 127/-8, 1 08:09:23 LV 148/-2, 1 08:09:31 LV 0/0, 1 08:09:56 LV 142/2, 6 08:10:05 LVp 136/0, 5 08:10:08 AOp 143/47 (66) 08:10:15 Signed By Moisés Díaz MD On 12/17/2023 08:33:03 Moisés Díaz MD
[2023-12-17] MEDS: traMADol 50 MG Tablet PO (08:57)
[2023-12-17] MEDS: Metoprolol Tartrate 50 MG Tablet PO (10:01)
[2023-12-17] MEDS: DULoxetine Hcl 60 MG Capsule PO (10:03)
[2023-12-17] MEDS: lamoTRIgine 100 MG Tablet PO (10:03)
[2023-12-17] MEDS: Multivitamins,Therapeutic Tablet 1 TABLET PO (10:03)
--- NOTE | 2023-12-17 10:20 | CASEMGMT ---
SARAH BRANTLEY Assessment Face to Face with patient for initial transition planning/care coordination assessment. SARAH BRANTLEY introduced self and role at [facility], pt voices understanding. Pt is A&Ox4 and is resting comfortably in the chair and is calm. Care providers, pharmacy, and demographics verified. Admitting dx: Elevated Troponin LACE Strata: 3 PCP: Fabi Cisneros Specialists: Tawny (PM), Kizzy PATIÑO (Pulm) Preferred Pharmacy: [facility] Insurance: [employer] Prescription Benefit: Yes LNOK: Francisco Allen (H) Living Arrangements: Pt lives with her in a ranch style home with 2 steps to enter ADLs/IADLs: Ind Transportation: Self, DME: BiPAP @ [facility] with no additional oxygen. BGM with sufficient supplies. BP Monitor. Cane. HHC/SNF: Reports HH Hx in 2021 and believes that it was through [facility]. Denies SNF Hx Pt?s goal: Home Plan: Anticipate Home no needs. Pt reports that she is independent and feels safe returning home with her once she is medically ready and denies further questions or concerns. Follow for new Blood thinning Rx. CM to continue to follow. Abi Mcqueen RN, CM
[2023-12-17 11:37] LABS: Bedside Glucose 155 mg/dL (74-106)
[2023-12-17 11:39] LABS: Hemoglobin A1c 4.9 % (3.8-5.6)
--- NOTE | 2023-12-17 15:42 | DCINST_ITS ---
Discharge Instructions Diet Discharge Diet: Low fat / Low cholesterol Activity Discharge Activity: Return to Normal Activity Dressing / Incision Call your doctor if you observe: Fever of 101 or Higher, Shortness of breath, Dizziness, Fainting spells, Swelling in the ankles, Chest pain and Increased palpitations (irregular heartbeat) Follow Up Care Test Results: Test results from this visit will be discussed in further detail at your follow- up appointment, if applicable. Discharge Plan Admission Admit Date/Time: 12/16/23 08:48 Attending Provider: Deonte Houser Primary Care Provider: Fabi Cisneros Consulting Providers: Jaimee Sultana; Cindy Chaidez Discharge Orders/Prescriptions Prescriptions: Continued albuterol sulfate 90 mcg/actuation HFA aerosol inhaler 1 - 2 puff INHALATION Q4H PRN PRN (Reason: Wheezing) Qty: 8.5 5RF albuterol sulfate 2.5 mg /3 mL (0.083 %) solution for nebulization 2.5 mg inhalation Q4H PRN (Reason: Sob &/Or Wheezing) Qty: 180 3RF multivitamin [Daily Multi-Vitamin] Tablet 1 tab PO DAILY Ozempic 1 mg/dose (4 mg/3 mL) pen injector 1 mg subcut TH tramadol 50 mg tablet 50 mg PO TID PRN PRN (Reason: pain) metoprolol tartrate 50 mg tablet See Rx Instructions .ROUTE .COMPLEX Qty: 180 3RF Dose Instruction: TAKE 1 TABLET BY MOUTH TWICE A DAY Rx Instructions: TAKE 1 TABLET BY MOUTH TWICE A DAY trazodone 50 mg tablet 75 mg PO QHS Qty: 45 1RF duloxetine 60 mg capsule,delayed release(DR/EC) 60 mg PO BID Qty: 180 1RF hydroxyzine HCl 25 mg tablet 25 mg PO Q8H PRN (Reason: anxiety) Qty: 270 1RF lamotrigine 100 mg tablet 100 mg PO QDAY Qty: 30 2RF Referrals / Follow Up: Fabi Cisneros MD [Primary Care Provider] - Within 1 Week BreMoisés holder MD [Med Staff - Active Staff] - Disposition Disposition (needs filled in before D/C Order can be placed): Home, Self Care
--- NOTE | 2023-12-18 09:14 | PCM.DC.SUM ---
Providers Date of Admission: 12/16/23 Date of Discharge: 12/17/23 Primary Care Physician: Dr. Fabi Cisneros MD Consultations 12/16/23 11:48 Consult: Cardiology Routine Consulting Provider: Jaimee Sultana Reason for Consult: SVT EMERGENT Consult: No MD Notified: Yes Date Notified: 12/16/23 Time Notified: 11:49 Method of Notification: Verbal Reason For Visit: TROPONIN ELEVATION Diagnosis Discharge Diagnosis (1) Supraventricular tachycardia: Status: Chronic Code(s): I47.1 - Supraventricular tachycardia (2) Elevated troponin I level: Status: Acute Code(s): R79.89 - Other specified abnormal findings of blood chemistry (3) Essential hypertension: Status: Acute Code(s): I10 - Essential (primary) hypertension Medications at Discharge Home Medications albuterol sulfate 2.5 mg/3 mL (0.083 %) solution for nebulization 2.5 mg (3 mL) inhalation Q4H PRN Sob &/Or Wheezing #180 mL 09/22/21 albuterol sulfate 90 mcg/actuation aerosol inhaler 1 - 2 puff inhalation Q4H PRN PRN Wheezing #8.5 grams 09/22/21 multivitamin (Daily Multi-Vitamin tablet) 1 tab PO DAILY 08/16/22 metoprolol tartrate 50 mg tablet See Rx Instructions .Route .COMPLEX #180 TABLETS 03/23/23 trazodone 50 mg tablet 75 mg (1.5 x 50 mg) PO QHS #45 tabs 04/03/23 duloxetine 60 mg capsule,delayed release 60 mg PO BID #180 caps 08/30/23 hydroxyzine HCl 25 mg tablet 25 mg PO Q8H PRN anxiety #270 tabs 11/05/23 lamotrigine 100 mg tablet 100 mg PO QDAY #30 tabs 11/06/23 semaglutide 1 mg/dose (4 mg/3 mL) subcutaneous pen injector (Ozempic) 1 mg subcut TH 12/02/23 tramadol 50 mg tablet 50 mg PO TID PRN PRN pain 12/02/23 Hospital Course Operations None Procedures 2-D Echocardiogram and Cardiac catheterization Summary of Care Provided Minutes Spent on Discharge: 33 Hospital Course: Per HPI: LOUISE LEEGLADYS, is a 58 F who presented to the emergency department at [facility] early in the morning of 12/16/2019 for complaining of chest discomfort and palpitations. Symptoms started about 6 hours prior to presentation. Patient has a known history of SVT and tried several vagal maneuvers without any success. She also tried carotid artery massage as well without any success. Patient has a known history of SVT which initially was diagnosed back in 2019. She was referred to EP at [facility] and plan is to perform radiofrequency ablation after she had weight loss. Patient states she is down about 150 pounds now and continues to lose weight with the goal of having ablation done. She has had intermittent episodes since that 2019 event. Upon presentation she was immediately noted to be hypotensive with heart rates from 160-170. Patient was cardioverted but remains somewhat hypotensive and troponin was noted to be elevated. Case was discussed with Dr. Sultana who suggested admission. At the time of my evaluation, the patient was asymptomatic and heart rate remained in sinus rhythm. Vital signs on presentation showed a temperature of 97.8, heart rate 163, respiratory rate 18, blood pressure was 60/34 with a pulse ox of 100% on room air. After cardioversion heart rate was 81 with blood pressure 85/65 at the time of admission. CBC was overall unremarkable. Coags are normal. Chemistry panel was overtly unremarkable with slight hyperglycemia showing a blood glucose level 120. Initial troponin was 393 with a subsequent delta troponin at 1158. Initial EKG showed narrow complex tachycardia with a rate of 165 and normal intervals with follow-up EKG showing sinus rhythm, normal axis, normal intervals and ST-T wave changes concerning for acute ischemia. Given her persistent hypotension and risk for SVT she was admitted to the ICU. Hospital Course: 1. SVT with acute hypotension and chest pain with troponin elevation due to demand ischemia from the SVT?58-year-old female with a history of SVT presented to the hospital with hypotension, dizziness and was found to be in SVT. On presentation she was cardioverted in the emergency room back in a normal sinus rhythm. Cardiology was consulted and they recommended admission with a heart cath which was done on the day of discharge. Coronary arteries were clean and cardiology is recommending continuation of her beta-mikki at 50 mg p.o. twice daily secondary to some hypotension they were hesitant to increase the dose and they recommended outpatient follow-up with their office to set up an EP visit. I discussed with her the plan for discharge and she expressed understanding Erisman of going home and would like to go home today. She is feeling much better denies any chest pain lightheadedness or syncope on the day of discharge. Troponins were elevated due to demand ischemia and her hypotension resolved after cardioversion. 2. Essential hypertension, depression, anxiety, type 2 diabetes, asthma, obstructive sleep apnea are all chronic medical conditions which complicate her care. Her home medications were continued where appropriate Physical Exam Narrative General: Alert, Oriented x3, Cooperative, No apparent distress HEENT: Atraumatic, PERRLA, EOMI, Normocephalic Oral: Moist Mucosa Neck: Supple, No JVD Lungs: Diminished, Normal air movement, No rhonchi, No wheeze, No rales Cardiovascular: Regular rate, Regular Rhythm, Normal S1, Normal S2, No murmurs Abdomen: Soft, Non Tender, Non-Distended, No Hepato-splenomegaly Extremities: No edema, Capillary Refill Less than 3 Seconds Skin: No rashes, No breakdown Musculoskeletal: No Tenderness to Palpation of Joints or Extremities Neurological: No focal neurological deficits, Motor Exam 5/5 strength throughout, Sensory exam intact to light touch and pain Psych/Mental Status: Normal Affect, Appropriate Weight / BMI Weight Weight: 257 lb 11.526 oz Body Mass Index (BMI) 41.5 ABG / Lab / Microbiology Data 12/17/23 04:48 12/17/23 04:48 Laboratory: Laboratory Results - last 24 hr 12/17/23 04:48: Hemoglobin A1c 4.9 12/17/23 11:18: POC Glucose 155 H Radiography Diagnostic Testing: Radiology Impression Echocardiogram 12/16/23 10:20 Interpretation Summary Normal LV size. Left ventricular systolic function is normal. The left ventricular ejection fraction is 65 %. Bubble contrast study negative for right to left interatrial shunt. Pulmonary artery systolic pressure is 20 mmHg. Ordering Physician: Cindy Chaidez Referring Physician: Fabi Cisneros Performed By: Carla Sepulveda RDCS D/C Instructions Discharge Diet: Low fat / Low cholesterol Call your doctor if you observe: Fever of 101 or Higher, Shortness of breath, Dizziness, Fainting spells, Swelling in the ankles, Chest pain and Increased palpitations (irregular heartbeat) Meaningful Use Info Meaningful Use Meaningful Use Diagnoses (Choose all that apply): None applicable Ischemic Stroke Statin Dosing Therapy Reference: STATIN DOSE THERAPY REFERENCE: * Patients > 75 years receive moderate or high dose statin therapy. * Patients 75 years or YOUNGER should receive HIGH intensity statin dose unless contraindicated. You will be required to document reason for non-treatment if statin daily dose does not meet guidelines. HIGH DOSE STATIN THERAPY DAILY Atorvastatin > than or = to 40 mg Rosuvastatin > than or = to 20 mg Amlodipine + Atorvastatin > than or = to 2.5/40 mg Ezetimibe + Simvastatin 10/80 mg Simvastatin 80mg Discharge Plan Admission Admit Date/Time: 12/16/23 08:48 Attending Provider: Deonet Houser Primary Care Provider: Fabi Cisneros Consulting Providers: Jaimee Sultana; Cindy Chaidez Discharge Orders/Prescriptions Prescriptions: Continued albuterol sulfate 90 mcg/actuation HFA aerosol inhaler 1 - 2 puff INHALATION Q4H PRN PRN (Reason: Wheezing) Qty: 8.5 5RF albuterol sulfate 2.5 mg /3 mL (0.083 %) solution for nebulization 2.5 mg inhalation Q4H PRN (Reason: Sob &/Or Wheezing) Qty: 180 3RF multivitamin [Daily Multi-Vitamin] Tablet 1 tab PO DAILY Ozempic 1 mg/dose (4 mg/3 mL) pen injector 1 mg subcut TH tramadol 50 mg tablet 50 mg PO TID PRN PRN (Reason: pain) metoprolol tartrate 50 mg tablet See Rx Instructions .ROUTE .COMPLEX Qty: 180 3RF Dose Instruction: TAKE 1 TABLET BY MOUTH TWICE A DAY Rx Instructions: TAKE 1 TABLET BY MOUTH TWICE A DAY trazodone 50 mg tablet 75 mg PO QHS Qty: 45 1RF duloxetine 60 mg capsule,delayed release(DR/EC) 60 mg PO BID Qty: 180 1RF hydroxyzine HCl 25 mg tablet 25 mg PO Q8H PRN (Reason: anxiety) Qty: 270 1RF lamotrigine 100 mg tablet 100 mg PO QDAY Qty: 30 2RF Referrals / Follow Up: Fabi Cisneros MD [Primary Care Provider] - 12/28/23 9:00 am Moisés Díaz MD [Med Staff - Active Staff] - Disposition Disposition (needs filled in before D/C Order can be placed): Home, Self Care Charges/Coding Visit Charges Inpatient E&M: 77583 Disch Hosp >30min
== END 2023-12-17 16:14 | disposition home or self-care (01) | DRG 287 ==
LOC: ED 06:34 → ICU 09:01
PROVIDERS: Internal Medicine Interventional Cardiology; Admitting Provider Internal Medicine; Emergency Provider Emergency Medicine; PCP Internal Medicine; Visit Provider Family Medicine
DX: I47.10 Supraventricular tachycardia, unspecified (principal); I24.89 Other forms of acute ischemic heart disease; Z68.41 Body mass index [BMI] 40.0-44.9, adult; E11.65 Type 2 diabetes mellitus with hyperglycemia; I10 Essential (primary) hypertension; J45.20 Mild intermittent asthma, uncomplicated; F32.A Depression, unspecified; E66.01 Morbid (severe) obesity due to excess calories; I95.9 Hypotension, unspecified; G47.33 Obstructive sleep apnea (adult) (pediatric); E78.5 Hyperlipidemia, unspecified; F41.9 Anxiety disorder, unspecified; G89.29 Other chronic pain; Z79.891 Long term (current) use of opiate analgesic; Z79.85 Long-term (current) use of injectable non-insulin antidiabetic drugs; Z79.899 Other long term (current) drug therapy; Z87.891 Personal history of nicotine dependence
CPT/HCPCS: 80048; 80053; 80061; 82962; 83036; 83735; 84100; 84443; 84484; 85025; 85610; 85730; 92960; 93005; 93306; 93458; 94668; 94762; 99152; 99153; 99252; 99285; J7030; J7040; Q9967; A4216; C1769; C1894; G0463; J0153

== ENCOUNTER 2023-12-27 12:56 | Observation (INO) | payer BC, SELFPAY ==
[2023-12-27] VITALS (12 sets, daily range): BP systolic 105–142; BP diastolic 54–86; PULSE 69–101; RESP 10–16; TEMP 36.4–36.7; O2SAT 96–100; BMI 48.6; BMI 43.3
[2023-12-27 10:35] LABS: Anion Gap 4 (5-15); BUN 24 mg/dL (7-18); BUN/Creat Ratio 34.7 RATIO (10-20); Calcium,Total 9.2 mg/dL (8.5-10.1); Chloride 105 mmol/L (98-107); Creatinine, Serum 0.69 mg/dL (0.55-1.02); EST Glomerular Filtration Rate 93 mL/min (>60); Est Glom Filt Rate - Afr Amer 112 mL/min (>60); Estimated Creatinine Clearance 126.54 ml/min; Glucose 87 mg/dL (74-106); Potassium 3.6 mmol/L (3.5-5.1); Sodium Level 139 mmol/L (136-145)
--- NOTE | 2023-12-27 12:41 | ELECTROSTU_ITS ---
Electrophysiology Report Electrophysiology Report Bree Allen is a 58 year old female who has a past medical history of htn and hld, who presented to the [facility] lab for further evaluation regarding SVT. Procedure Summary * Patient prepped and draped in sterile fashion. * Right groin infiltrated with lidocaine. * Right femoral access obtained x3 with ultrasound guidance. * Sheaths inserted into femoral veins via Seldinger technique. * Catheters inserted through right groin. * EPS results listed below in conclusions. * Sheaths pulled in lab and hemostasis achieved per protocol. Findings: BASELINE SCL: 867ms AH: 67ms HV: 54ms Maximum SNRT: 1117ms CSNRT: 250ms BASELINE Inducible Tachycardia: Y, very easily inducible tachycardia Diagnosis: AVNRT- Short VA, long PPI, VAV response, Long S-A, V-A VA interval at Hisduring tachycardia: <70ms Ablation of: slow pathway Ablation Parameters: power titration Ablation Catheter Used: SF irrigated Results of Ablation Site of Ablation: slow pathway modification with multiple junctional beats Successful Post Ablation Testing BASELINE SCL: 800ms AH: 75ms HV: ms AVBCL: 52ms Atrial ERP 200ms @ 560ms VAB: 320ms VERP 200 @ 500ms Conclusions 1. Baseline rhythm is sinus rhythm. 2. Normal sinus node function (longest SNRT 1117ms). 3. Normal AV node function, normal infranodal conduction (HV= 54ms). 4. No evidence of accessory pathway. 5. Evidence ofdual AV node physiology. 6. VA conduction present and is decremental.? 7. Easily inducible AVNRT (short VA, long ppi-TCL, long SA-VA, VAV response) at baseline 8. Ablation performed to slow pathway region with multiple junctional beats 9. Post ablation with single echo beat, no inducible AVNRT Recommendations 1. Successful slow pathway modification 2. Bedrest for 3 hours 3. The patient can continue to follow-up with Dr. Díaz. 4. Stop metoprolol unless another clinical indication 5. Observe overnight.
--- NOTE | 2023-12-27 13:00 | EKG12_ITS ---
Test Reason : AM EKG Blood Pressure : */* mmHG Vent. Rate : 75 BPM Atrial Rate : 75 BPM P-R Int : 162 ms QRS Dur : 90 ms QT Int : 438 ms P-R-T Axes : 55 20 24 degrees QTcB Int : 489 ms Normal sinus rhythm Prolonged QT Abnormal ECG When compared with ECG of 27-Dec-2023 13:35, MANUAL COMPARISON REQUIRED DATA IS UNCONFIRMED Confirmed by JONES ROOT ([id number]), graphics editor RAQUEL GILL ([id number]) on 12/31/2023 6:16:58 AM Referred By: Moisés Díaz Confirmed By: JONES ROOT
[2023-12-27] MEDS: traMADol 50 MG Tablet PO (15:37)
[2023-12-27] MEDS: traZODone 50 MG Tablet 75 MG PO (22:42)
[2023-12-27] MEDS: DULoxetine Hcl 60 MG Capsule PO (22:42)
[2023-12-27] MEDS: hydrOXYzine PAM 25 MG Capsule PO (22:42)
[2023-12-28] MEDS: traMADol 50 MG Tablet PO (00:34)
[2023-12-28 03:25] VITALS: BP 109/60; PULSE 89; RESP 16; TEMP 36.4; O2SAT 96
[2023-12-28] MEDS: Acetaminophen 325 MG Tablet PO (03:39)
[2023-12-28 09:27] VITALS: BP 110/62; PULSE 82; RESP 18; TEMP 36.6; O2SAT 100
[2023-12-28] MEDS: Multivitamins,Therapeutic Tablet 1 TABLET PO (09:28)
[2023-12-28] MEDS: lamoTRIgine 100 MG Tablet PO (09:29)
[2023-12-28] MEDS: DULoxetine Hcl 60 MG Capsule PO (09:29)
--- NOTE | 2023-12-28 09:46 | DCINST_ITS ---
Discharge Instructions Diet Discharge Diet: No restrictions Activity Discharge Activity: No Restrictions (Do not lift anything greater than 10 pounds for 3 days.) Dressing / Incision Call your doctor if your incision/area has: Continuous Slow Oozing, Sudden Increased Bleeding, Increased Pain/ Swelling, Increased Redness, Foul Smelling Discharge and Swelling at the incision site Follow Up Care Please Follow Up With: Moisés Díaz MD Test Results: Test results from this visit will be discussed in further detail at your follow- up appointment, if applicable. Discharge Plan Admission Admit Date/Time: 12/27/23 12:56 Primary Reason for Your Visit: SVT ablation Attending Provider: Moisés Díaz Primary Care Provider: Fabi Cisneros Discharge Orders/Prescriptions Prescriptions: Continued albuterol sulfate 90 mcg/actuation HFA aerosol inhaler 1 - 2 puff INHALATION Q4H PRN PRN (Reason: Wheezing) Qty: 8.5 5RF albuterol sulfate 2.5 mg /3 mL (0.083 %) solution for nebulization 2.5 mg inhalation Q4H PRN (Reason: Sob &/Or Wheezing) Qty: 180 3RF multivitamin [Daily Multi-Vitamin] Tablet 1 tab PO DAILY Ozempic 1 mg/dose (4 mg/3 mL) pen injector 1 mg subcut TH tramadol 50 mg tablet 50 mg PO TID PRN PRN (Reason: pain) trazodone 50 mg tablet 75 mg PO QHS Qty: 45 1RF duloxetine 60 mg capsule,delayed release(DR/EC) 60 mg PO BID Qty: 180 1RF hydroxyzine HCl 25 mg tablet 25 mg PO Q8H PRN (Reason: anxiety) Qty: 270 1RF lamotrigine 100 mg tablet 100 mg PO QDAY Qty: 30 2RF Discontinued metoprolol tartrate 50 mg tablet See Rx Instructions .ROUTE .COMPLEX Qty: 180 3RF Dose Instruction: TAKE 1 TABLET BY MOUTH TWICE A DAY Rx Instructions: TAKE 1 TABLET BY MOUTH TWICE A DAY Referrals / Follow Up: Fabi Cisneros MD [Primary Care Provider] - Disposition Disposition (needs filled in before D/C Order can be placed): Home, Self Care
--- NOTE | 2023-12-28 10:00 | EKG12_ITS ---
Test Reason : PCI Blood Pressure : */* mmHG Vent. Rate : 67 BPM Atrial Rate : 67 BPM P-R Int : 158 ms QRS Dur : 82 ms QT Int : 430 ms P-R-T Axes : 54 16 14 degrees QTcB Int : 454 ms Normal sinus rhythm Normal ECG When compared with ECG of 17-Dec-2023 05:12, No significant change was found Confirmed by JONES ROOT ([id number]), editor publications RAQUEL GILL ([id number]) on 12/28/2023 1:47:02 PM Referred By: Moisés Díaz Confirmed By: JONES ROOT
--- NOTE | 2023-12-28 10:02 | CASEMGMT ---
Patient has order for discharge. RN CM in to discuss needs at discharge, at bedside. Patient up independent in room. Patient denies needs or help at discharge. Patient had no further questions or concerns.
== END 2023-12-28 09:50 | disposition home or self-care (01) ==
LOC: PCU 13:08
PROVIDERS: Admitting Provider Internal Medicine Cardiovascular Disease; PCP Internal Medicine; Referring Provider Internal Medicine Cardiovascular Disease; Visit Provider Internal Medicine Cardiovascular Disease
DX: I47.10 Supraventricular tachycardia, unspecified (principal); F60.89 Other specific personality disorders; E66.01 Morbid (severe) obesity due to excess calories; R07.9 Chest pain, unspecified; I10 Essential (primary) hypertension; J45.20 Mild intermittent asthma, uncomplicated; I25.2 Old myocardial infarction; R42 Dizziness and giddiness; M79.7 Fibromyalgia; G47.33 Obstructive sleep apnea (adult) (pediatric); Z79.899 Other long term (current) drug therapy; E78.5 Hyperlipidemia, unspecified; F40.00 Agoraphobia, unspecified; Z87.891 Personal history of nicotine dependence
CPT/HCPCS: 80048; 93005; 93609; 93653; 99152; 99153; 99221; C1730; J7040; C1894; G0378

== ENCOUNTER → 2024-07-21 | Outpatient (CLI) | payer BC, SELFPAY ==
[2024-07-21 13:57] LABS: Amphetamine Urine NEGATIVE (<1000 ng/mL); Barbiturate Urine NEGATIVE (< 200 ng/mL); Benzodiazepine Urine NEGATIVE (< 200 ng/mL); Buprenorphine Urine NEGATIVE (< 200 ng/mL); Cocaine Urine NEGATIVE (< 300 ng/mL); Fentanyl, Urine NEGATIVE; Methadone Urine NEGATIVE (< 300 ng/mL); Opiates Urine NEGATIVE (< 300 ng/mL); Oxycodone, Urine NEGATIVE (< 100 ng/mL); PCP Urine NEGATIVE (< 25 ng/mL); THC Urine NEGATIVE (< 50 ng/mL)
== END | disposition home or self-care (01) ==
LOC: LAB 13:00
PROVIDERS: PCP Internal Medicine; Referring Provider Anesthesiology Pain Medicine; Visit Provider Anesthesiology Pain Medicine
DX: F11.20 Opioid dependence, uncomplicated (principal)
CPT/HCPCS: 80307

== ENCOUNTER → 2024-08-18 | Outpatient (CLI) | payer BC, SELFPAY ==
--- NOTE | 2024-08-18 13:35 | RAD_ITS ---
PROCEDURE: CERV SPINE 2 OR 3 VIEWS 08/18/2024 REASON FOR EXAM: RADICULOPATHY TECHNIQUE: CERV SPINE 2 OR 3 VIEWS COMPARISON: 08/10/2018. FINDINGS: No evidence of acute fracture or dislocation. Moderate discogenic degenerative changes of C5-6. Mild discogenic degenerative changes of the other visualized levels. Normal alignment. Vertebral body heights are maintained. RAD/Cerv Spine 2 or 3 Views IMPRESSION: Spondylosis most pronounced at C5-6. Reading Location: [id number]
[2024-08-18 13:48] LABS: Hematocrit 38.2 % (37-47); Hemoglobin 13.0 g/dL (12.0-15.0); Immature Granulocytes Count 0.010 X10^3/uL (0.0-0.0); Mean Corp Hgb Conc 34.0 g/dL (32-36); Mean Corpuscular Volume 90.7 fL (81-99); Mean Platelet Vol. 9.4 fl (6.2-12.0); NRBC Flagged by Analyzer 0 % (0-5); Platelet Count 278 K/mm3 (150-450); RBC Distribution Width CV 12.6 % (11.6-14.6); RBC Distribution Width SD 41.9 fl (35.1-43.9); Red Blood Count 4.21 M/mm3 (4.2-5.4); White Blood Count 7.7 K/mm3 (4.4-11.0)
[2024-08-18 14:40] LABS: AST(SGOT) 23 U/L (<=31); Alanine Aminotransfer ALT/SGPT 15 U/L (<=34); Albumin, Serum 4.2 g/dL (3.5-5.0); Alkaline Phosphatase 87 U/L (35-104); Anion Gap 11 (5-15); BUN 21 mg/dL (4-19); BUN/Creat Ratio 33.4 RATIO (10-20); Calcium,Total 9.4 mg/dL (7.6-11.0); Carbon Dioxide 24.3 mmol/L (21.0-32.0); Chloride 103 mmol/L (98-108); Globulin 2.5 g/dL (2.2-4.2); Glucose 84 mg/dL (70-99); Iron 77 ug/dL (50-170); Iron Binding Capacity,Total 280 ug/dL (250-450); Iron Binding Capacity,Unsat 203 ug/dL (228-428); Potassium 4.0 mmol/L (3.3-5.1); Vitamin B12 730 pg/mL (180-914); Vitamin D,25 Hydroxy 37.1 ng/mL (30-100)
[2024-08-18 15:03] LABS: Cholesterol 241 mg/dL (<=200); Low Density Lipoprotein Calc. 155 mg/dL; Triglycerides 107 mg/dL; Very Low Density Lipoprotein 21 mg/dL (5-40); cholesterol:hdl ratio screen 3.74
--- OUTSIDE RECORDS SUMMARY | 2024-08-18 22:18 | XMS RPT_ITS | CCD ---
Author Organization [facility] Care Team Providers Care Vice President Of Consulting Services Name Role Phone Charity Barrera MD Primary Care Provider Chayo Harper MD Unavailable [phone] Charity Barrera Primary Care Provider Unavailabl e Charity Barrera Referring Provider Unavailable Dr. John Vargas Attending Provider Twan CAR AUDIO INSTALLER, CAR AUDIO INSTALLER-C Joselin Attending Provider Twan ALEX, CAR AUDIO INSTALLER-C Joselin Referring Provider Twan ALEX, CAR AUDIO INSTALLER-C Joselin Other Provider Dr. Charity Barrera Primary Care Provider Dr. Hakan Hobbs Attending Provider Charity Barrera MD Primary Care Provider Chayo Harper MD Unavailable Charity Barrera MD Primary Care Provider Dr. Charity Barrera Primary Care Provider Dr. Charity Barrera Referring Provider Edith ALEX, CAR AUDIO INSTALLER-C Mckenna Attending Provider [phone] Charity Barrera MD Primary Care Provider Chayo Harper MD Unavailable CHARITY BARRERA Primary Care Unavailab CHARITY Thayer Referring Unavailab CHARITY Thayer Primary Care Unavailab Chayo Nunez MD Unavailable CHARITY BARRERA Attending Unavailab CHARITY Thayer Primary Care Unavailab le LORRAINE WINDOW TREATMENT INSTALLER, EMILY Attending Unavailable LORRAINE WINDOW TREATMENT INSTALLER, EMILY Attending Unavailable LORRAINE WINDOW TREATMENT INSTALLER, EMILY Attending Unavailable LORRAINE WINDOW TREATMENT INSTALLER, EMILY Attending Unavailable PRISTAS DO, CHRISTINA K Attending Unavailable LORRAINE WINDOW TREATMENT INSTALLER, EMILY Attending Unavailable PRISTAS DO, CHRISTINA K Attending Unavailable LORRAINE WINDOW TREATMENT INSTALLER, EMILY Attending Unavailable LORRAINE WINDOW TREATMENT INSTALLER, EMILY Attending Unavailable Amelia, Fabi Referring Unavailable Amelia, Fabi Attending Unavailable Amelia, Fabi Primary Care Unavailable Amelia, Fabi Primary Care Unavailable Laureano Min Attending Unavailable Laureano Min Attending Unavailable Amelia, Fabi Primary Care Unavailable Belal, Farouk Consulting Unavailable Amelia, Fabi Primary Care Unavailable Bre, [place] Attending Unavailable Cindy Chaidez Admitting Unavailable Cindy Chaidez Consulting Unavailable Deonte Houser Consulting Unavailable Belal, Farouk Attending Unavailable [place], Fabi Primary Care Unavailable Bre, [place] Referring Unavailable Jass Sánchez Attending Unavailable Bre, Moisés Consulting Unavailable [place], Fabi Primary Care Unavailable Bre, [place] Admitting Unavailable Bre, [place] Referring Unavailable Deonte Houser Attending Unavailable Belal, Farouk Attending Unavailable Cindy Chaidez Attending Unavailable [place], Fabi Referring Unavailable [place], Fabi Primary Care Unavailable Manny Van Attending Unavailable Laureano Min Attending Unavailable [place], Fabi Primary Care Unavailable Basali, Ayman Referring Unavailable Basali, Ayman Attending Unavailable [place], Fabi Primary Care Unavailable Marco Ramires Attending Unavailable [place], Fabi Primary Care Unavailable Amelia, Fabi Referring Unavailable Isabel Young Attending Unavailable [place], Fabi Primary Care Unavailable Laureano Min Attending Unavailable Amelia, Fabi Primary Care Unavailable Bre, [place] Attending Unavailable Amelia, Fabi Primary Care Unavailable Bre, Moisés Admitting Unavailable Bre, [place] Referring Unavailable Amelia, Fabi Primary Care Unavailable Basali, Ayman Referring Unavailable Basali, Ayman Attending Unavailable Belal, Farouk Consulting Unavailable Deonte Houser Attending Unavailable Fabi Cisneros Primary Care Unavailable Cindy Chaidez Admitting Unavailable Cindy Chaidez Consulting Unavailable Fabi Cisneros Referring Unavailable Moisés Díaz Attending Unavailable Fabi Cisneros Primary Care Unavailable Allergies Allergy Classification Reported Allergen(s) Allergy Type Date of Onset Reaction(s) Facility (19 sources) Morphine; Translations: [MORPHINE] Drug Allergy 08-04-2014 Mental Status Change [facility] Work Phone: Medications Current Medications Medication Drug Class(es) Dates Sig (Normalized) Sig (Original) aspirin 325 mg delayed release oral tablet (8 sources) Platelet Aggregation Inhibitor, Nonsteroidal Anti-inflammatory Drug Start: 01-12-2021 take 325 mg by mouth once daily Aspirin Active 325 MG PO DAILY January 12, 2021 12:00am Start: 04-17-2020 End: 05-31-2020 take 81 mg by mouth once daily Aspirin Discontinued 81 MG PO DAILY April 17, 2020 12:00am May 31, 2020 2:21pm Budesonide-Formoterol (18 sources) Corticosteroid, beta2-Adrenergic Agonist Start: 09-22-2021 Budesonide-Formoterol Active 2 INH INHALATION TWICE A DAY 10.2 September 22, 2021 12:23pm Start: 08-04-2014 take 2 puff(s) by in halation twice daily budesonide-formoterol (SYMBICORT) 160-4.5 mcg/actuation inhaler Inhale 2 Puffs as instructed twice daily. 0 08/04/2014 Active Start: 06-30-2014 End: 09-22-2021 take 1 puff(s) by inhalation twice daily Budesonide-Formoterol Discontinued 2 PUFF INHALATION TWICE A DAY June 29, 2014 11:00pm September 22, 2021 12:24pm Start: 06-30-2014 take 1 puff(s) by in halation twice daily Budesonide-Formoterol Active 2 PUFF INHALATION TWICE A DAY June 30, 2014 12:00am Comment on above: Inhale 2 Puffs as in structed twice daily. clonazePAM 0.5 mg oral tablet (20 sources) Benzodiazepine Start: 3 End: 3 take 1 tablet by mouth three times daily as needed for anxiety clonazePAM (KLONOPIN) 0.5 mg tablet Indications: RAJESH (generalized anxiety disorder) Take 1 tablet by mouth three times daily as needed for anxiety for up to 90 days. 90 tablet 2 04/10/2022 07/09/2022 Active Start: 11-16-2019 End: 04-07-2022 take 1 tablet by mouth [...] 14 days. glimepiride 4 mg oral tablet (20 sources) Sulfonylurea Start: 2 End: 3 take 1 tablet by mouth once daily glimepiride (AMARYL) 4 mg tablet Take 1 tablet by mouth once daily. 90 tablet 3 11/01/2021 11/01/2022 Active Start: 10-20-2021 take 1 tablet by shyla th once daily glimepiride (AMARYL) 2 mg tablet TAKE 1 TABLET BY MOUTH EVERY DAY 90 tablet 3 10/20/2021 Active Start: 01-05-2020 End: 10-20-2021 take 2 mg by mouth once daily Glimepiride Active 2 MG PO DAILY January 05, 2020 12:00am Start: 11-16-2019 End: 01-05-2020 Glimepiride Discontinued [facility] 2019 11:00pm January 05, 2020 9:41am Start: 11-16-2019 End: 01-05-2020 Glimepiride Discontinued Oct joe 2019 12:00am January 05, 2020 10:41am Comment on above: Take 1 tablet by [...] 1 tablet by shyla th once daily. metoprolol tartrate 50 mg oral tablet (20 sources) beta-Adrenergic Mkiki Start: 2 take 25 mg by mouth twice daily Metoprolol Tartrate Active 25 MG PO TWICE A DAY July 25, 2021 8:26am Start: 10-19-2020 End: 07-25-2021 take 1 tablet by mouth twice daily metoprolol tartrate, short acting, (LOPRESSOR) 50 mg tablet Take 1 tablet by mouth twice daily. 180 tablet 3 10/19/2020 Active Start: 11-17-2019 End: 12-20-2020 take 25 mg by mouth twice daily Metoprolol Tartrate Di scontinued 25 MG PO TWICE A DAY 60 December 18, 2019 2:42pm January 05, 2020 9:11am Hold for HR Comment on above: Take 1 tablet by shyla th twice daily. nirmatrelvir tablet 300 mg (150 mg x 2) and ritonavir tablet 100 mg in a dose pack (PAXLOVID) (1 source) Start: 2 End: 2 nirmatrelvir tablet 300 mg (150 mg x [...] a total of three tablets twice daily. traMADol hydrochloride 50 mg oral tablet (20 sources) Opioid Agonist Start: 11-15-202 1 take 50 mg by mouth every eight hours Tramadol Active 50 MG PO Q8H December 20, 2020 1:03pm Start: 11-16-2019 take 1 tablet by shyla th three times daily traMADol (ULTRAM) 50 mg tablet Take 1 tablet by mouth three times daily. 0 11/16/2019 Active Start: 11-16-2019 End: 12-20-2020 take 50 mg by mouth every four hours as needed Tramadol Discontinued 50 MG PO EVERY 4 HOURS NEEDED November 15, 2019 11:00pm December 20, 2020 1:05pm Comment on above: Take 1 tablet by shyla th three times daily. Completed/Discontinued Medications Medication Drug Class(es) Dates Sig (Normalized) Sig (Original) [id number] 200 actuat albuterol 0.09 mg/actuat metered dose inhaler (20 sources) beta2-Adrenergic Agonist Start: 12-26-2021 take 2 puff(s) by inhalation every six hours as needed for wheezing albuterol HFA (PROVENTIL HFA, VENTOLIN HFA) 90 mcg/actuation inhaler INHALE 2 PUFFS INSTRUCTED EVERY 6 HOURS NEEDED FOR WHEEZING/SHORTNES S OF BREATH. 25.5 Each 1 12/26/2021 Active Start: 09-22-2021 take 2.5 mg by inhal ation every four hours Albuterol Sulfate Active 2.5 MG INHALATION Q4H 180 September 21, 2021 11:00pm Start: 08-23-2021 take 2 puff(s) by in halation every six hours as needed for wheezing albuterol HFA (PROAIR HFA) 90 mcg/actuation inhaler Inhale 2 Puffs as instructed every 6 hours as needed for wheezing/shortness of breath. 1 Inhaler 3 08/23/2021 Active Start: 11-16-2019 End: 09-22-2021 take 1 puff(s) by inhalation every four hours as needed Albuterol Sulfate Active 1 - 2 PUFF INHALATION EVERY 4 HOURS NEEDED 8.5 September 22, 2021 12:23pm Start: 08-04-2014 End: 08-23-2021 albuterol HFA (PROAIR HFA) 9 0 mcg/actuation inhaler Inhale 2 Puffs as instructed. 0 08/04/2014 08/23/2021 Discontinued Comment on above: Inhale 2 Puffs as in structed. Inhale 2 Puffs as in structed every 6 hours as needed for wheezing/shortness of breath. 24 hr buPROPion hydrochloride 150 mg extended release oral tablet (11 sources) Aminoketone Start: End: take 1 tablet by mouth once daily buPROPion XL (WELLBUTRIN XL) 150 mg 24 hr tablet Take 1 tablet by mouth once daily. 30 tablet 5 09/07/2021 Active Comment on above: Take 1 tablet by shyla once daily. cetirizine hydrochloride 10 mg oral capsule (4 sources) Histamine-1 Receptor Antagonist Start: End: take 10 mg by mouth once daily Cetirizine Discontinued 10 MG PO DAILY April 17, 2020 12:00am July 25, 2021 8:28am citalopram 20 mg oral tablet (7 sources) Serotonin Reuptake Inhibitor Start: End: take 20 mg by mouth once daily Citalopram Discontinued 20 MG PO DAILY December 20, 2020 12:00am July 25, 2021 8:28am Comment on above: Take 1 tablet by shyla once daily. dexamethasone 6 mg oral tablet (4 sources) Corticosteroid Start: End: take 1 tablet by mouth once daily Dexamethasone (Decadron) 6 mg tablet Discontinued 6 MG PO DAILY January 12, 2021 12:00am January 14, 2021 12:01am diclofenac sodium 0.01 mg/mg topical gel (13 sources) Nonsteroidal Anti-inflammatory Drug Start: diclofenac (VOLTAREN) 1 % topical gel APPLY TO AFFECTED AREA EVERY DAY [id number] 05/05/2020 Active Comment on above: APPLY TO AFFECTED AR EA EVERY DAY [id number] DULoxetine 30 mg delayed release oral capsule (20 sources) Serotonin and Norepinephrine Reuptake Inhibitor Start: End: take 3 capsules by mouth once daily DULoxetine (CYMBALTA) 30 mg capsule TAKE 3 CAPSULES BY MOUTH ONCE A DAY DIRECTED 270 capsule 3 02/18/2022 Active Start: 01-05-2020 take 90 mg by mouth once daily Duloxetine Active 90 MG PO DAILY January 05, 2020 12:00am Start: 11-16-2019 End: 01-05-2020 take 90 mg by mouth once daily Duloxetine Discontinued 90 MG PO DAILY November 15, 2019 11:00pm January 05, 2020 9:43am Comment on above: Take 3 capsules by m outh once daily. TAKE 3 CAPSULES BY M OUTH ONCE A DAY DIRECTED gabapentin 300 mg oral capsule (20 sources) Anti-epileptic Agent Start: 12-20-2020 End: 07-25-2021 take 600 mg by mouth three times daily Gabapentin Discontinued 600 MG PO THREE TIMES A DAY December 20, 2020 1:03pm July 25, 2021 8:29am Start: 05-31-2020 take 1 tablet by shyla th three times daily gabapentin (NEURONTIN) 600 mg tablet Take 1 tablet by mouth three times daily. 0 05/31/2020 Active Start: 01-05-2020 End: 12-20-2020 take 300 mg by mouth once daily Gabapentin Discontinue d 300 MG PO DAILY January 05, 2020 12:00am December 20, 2020 1:05pm Comment on above: Take 1 tablet by shyla th three times daily. hydroCHLOROthiazide 25 mg oral tablet (17 sources) Thiazide Diuretic Start: 2014 take 1 tablet by mouth once daily hydrochlorothiazide (HYDRODIURIL, ESIDRIX) 25 mg tablet Take 1 tablet by mouth once daily. 30 tablet 4 03/03/2015 Active Comment on above: Take 1 tablet by shyla th once daily. levoFLOXacin 750 mg oral tablet (4 sources) Quinolone Antimicrobial Start: 2020 End: 2021 take 750 mg by mouth once daily Levofloxacin Discontinued 750 MG PO DAILY@0600 4 January 12, 2021 12:00am July 25, 2021 8:28am lisinopril 20 mg oral tablet (20 sources) Angiotensin Converting Enzyme Inhibitor Start: 2020 take 1 tablet by mouth once daily lisinopril (ZESTRIL, PRINIVIL) 20 mg tablet Take 1 tablet by mouth once daily. 0 05/31/2020 Active Start: 04-17-2020 take 20 mg by mouth once daily Lisinopril Active 20 MG PO DAILY April 17, 2020 2:54pm Hold if SBP Start: 11-16-2019 End: 04-17-2020 take 15 mg by mouth once daily Lisinopril Discontinued 15 MG PO DAILY 0 November 17, 2019 11:00am April 17, 2020 2:54pm Hold if SBP Comment on above: Take 1 tablet by shyla once daily. LORazepam 0.5 mg oral tablet (4 sources) Benzodiazepine Start: 03-11-19 16 End: 10-18-19 LORazepam (ATIVAN) 0.5 mg tab Take 1 tablet by mouth as directed. Take one tablet one hour prior to flight. 5 tablet 0 03/11/2015 10/17/2021 Discontinued (Course of therapy completed) Comment on above: Take 1 tablet by shyla as directed. Take one tablet one hour prior to flight. meloxicam 15 mg oral tablet (4 sources) Nonsteroidal Anti-inflammatory Drug Start: 01-05-20 End: 09-23-19 take 7.5 mg by mouth once daily Meloxicam Discontinued 7.5 MG PO DAILY January 05, 2020 12:00am September 22, 2021 12:11pm On Hold: Resume on 02/09/21. metFORMIN hydrochloride 500 mg oral tablet (17 sources) Biguanide Start: 04-25-19 take 2 tablets by mouth twice daily metFORMIN (GLUCOPHAGE) 500 mg tablet Indications: Type 2 diabetes mellitus with hyperglycemia (HCC) TAKE 2 TABLETS BY MOUTH TWICE A DAY 360 tablet 3 04/24/2022 Active Start: 05-07-2020 take 2 tablets by mo uth twice daily metFORMIN (GLUCOPHAGE) 500 mg tablet Take 2 tablets by mouth twice daily. 0 05/07/2020 Active Start: 11-16-2019 take 1000 mg by mout h twice daily Metformin Active 1000 MG PO TWICE A DAY November 15, 2019 11:00pm Comment on above: Take 2 tablets by mo uth twice daily. TAKE 2 TABLETS BY MO UTH TWICE A DAY omeprazole 20 mg delayed release oral tablet (4 sources) Proton Pump Inhibitor Start: 1 End: 2 take 20 mg by mouth twice daily Omeprazole Discontinued 20 MG PO TWICE A DAY 60 January 12, 2021 12:00am July 25, 2021 8:29am SITagliptin 100 mg oral tablet (8 sources) Dipeptidyl Peptidase 4 Inhibitor Start: 2 End: 3 take 1 tablet by mouth once daily SITagliptin (JANUVIA) 100 mg tablet Take 1 tablet by mouth once daily. 90 tablet 3 11/01/2021 05/01/2022 Discontinued (Cost of medication) Comment on above: Take 1 tablet by shyla th once daily. Problems Active Problems Problem Classification Problem Date Documented Date Episodic/Chronic Acute myocardial infarction (2 sources) Non-ST elevation (NSTEMI) myocardial infarction; Translations: [Non-ST elevation (NSTEMI) myocardial infarction] Onset: 01-24-2024 Chronic Anxiety disorders (17 sources) Generalized anxiety disorder; Translations: [Generalized anxiety disorder] Onset: 08-22-2016 Chronic Asthma (20 sources) Moderate persistent asthma; Translations: [Moderate persistent asthma, uncomplicated] Onset: 08-04-2014 08-04-2014 Chronic Cardiac dysrhythmias (20 sources) Persistent atrial fibrillation; Translations: [Other persistent atrial fibrillation] Onset: 10-21-2020 10-21-2020 Chronic Chronic obstructive pulmonary disease and bronchiectasis (4 sources) Bronchitis; Translations: [Bronchitis, not specified as acute or chronic] Episodic Coma; stupor; and brain damage (4 sources) Drowsy; Translations: [Somnolence] Episodic Diabetes mellitus with complications (12 sources) Type II diabetes mellitus uncontrolled; Translations: [Uncontrolled type 2 diabetes mellitus] Onset: 04-02-2017 09-07-2021 Chronic Diabetes mellitus without complication (4 sources) Type 2 diabetes mellitus; Translations: [Type 2 diabetes mellitus without complications] Onset: 09-07-2021 Chronic Disorders of lipid metabolism (20 sources) Hyperlipidemia; Translations: [Hyperlipidemia, unspecified] Onset: 09-07-2021 Chronic Essential hypertension (20 sources) Hypertensive disorder; Translations: [Essential (primary) hypertension] Onset: 08-04-2014 08-04-2014 Chronic Mood disorders (1 source) Mood disorders; Translations: [Depression, unspecified] Onset: 01-11-2024 Osteoarthritis (13 sources) Osteoarthritis; Translations: [Unspecified osteoarthritis, unspecified site] Onset: 08-04-2014 08-04-2014 Chronic Other lower respiratory disease (4 sources) Snoring; Translations: [Snoring] Episodic Other nervous system disorders (1 source) Other chronic pain; Translations: [Other chronic pain] Onset: 01-11-2024 Chronic Other nutritional; endocrine; and metabolic disorders (13 sources) Body mass index 40+ - severely obese; Translations: [Morbid (severe) obesity due to excess calories] Onset: 06-19-2017 06-19-2017 Chronic Other nutritional; endocrine; and metabolic disorders (4 sources) Morbid obesity; Translations: [Morbid (severe) obesity due to excess calories] Chronic Other nutritional; endocrine; and metabolic disorders (5 sources) Morbid (severe) obesity due to excess calories; Translations: [Morbid obesity] Onset: 01-11-2024 Chronic Other nutritional; endocrine; and metabolic disorders (1 source) Body mass index (BMI) 40.0-44.9, adult; Translations: [Body mass index [BMI] 40.0-44.9, adult] Onset: 01-11-2024 Chronic Other upper respiratory disease (4 sources) Allergic rhinitis; Translations: [Allergic rhinitis, unspecified] Chronic Other upper respiratory infections (1 source) Upper respiratory infection; Translations: [Acute upper respiratory infection, unspecified] Episodic Pneumonia (except that caused by tuberculosis or sexually transmitted disease) (4 sources) Pneumonia; Translations: [Pneumonia, unspecified organism] Episodic Residual codes; unclassified (8 sources) Obstructive sleep apnea syndrome; Translations: [Obstructive sleep apnea (adult) (pediatric)] Chronic Residual codes; unclassified (4 sources) Sleep apnea; Translations: [Sleep apnea, unspecified] Chronic Residual codes; unclassified (5 sources) Obstructive sleep apnea (adult) (pediatric); Translations: [Obstructive sleep apnea (adult)(pediatric)] Onset: 01-11-2024 Chronic Residual codes; unclassified (4 sources) History of cardioversion; Translations: [Other specified postprocedural states] Episodic Respiratory failure; insufficiency; arrest (adult) (4 sources) Acute respiratory failure; Translations: [Acute respiratory failure with hypoxia] Episodic Substance-related disorders (10 sources) Tobacco dependence in remission; Translations: [Nicotine dependence, cigarettes, in remission] Onset: 07-24-2024 Chronic Unclassified (1 source) Other persistent atrial fibrillation; Translations: [Atrial fibrillation, persistent (HCC)] Onset: 10-21-2020 Unclassified (1 source) Supraventricular tachycardia, unspecified; Translations: [Supraventricular tachycardia, unspecified] Onset: 01-11-2024 Viral infection (5 sources) COVID-19; Translations: [Pneumonia due to COVID-19 virus] Episodic Past or Other Problems Problem Classification Problem Date Documented Da te Episodic/Chronic Administrative/social admission (13 sources) Patient encounter status; Translations: [Other specified counseling] Onset: 10-21-2020 10-21-2020 Episodic Cardiac dysrhythmias (1 source) Palpitations; Translations: [Palpitations] Onset: 12-24-2023 Episodic Immunizations and screening for infectious disease (1 source) Encounter for immunization; Translations: [Encounter for immunization] Onset: 01-11-2024 Episodic Mycoses (11 sources) Mycosis; Translations: [Candidiasis, unspecified] Onset: 01-17-2021 09-07-2021 Episodic Nonspecific chest pain (5 sources) Chest pain; Translations: [Chest pain, unspecified] Onset: 01-24-2024 Episodic Other circulatory disease (1 source) Hypotension, unspecified; Translations: [Hypotension, unspecified] Onset: 12-31-2023 Episodic Other connective tissue disease (14 sources) Fibromyalgia; Translations: [Fibromyalgia] Onset: 08-04-2014 08-04-2014 Episodic Other connective tissue disease (1 source) Fibromyalgia; Translations: [Fibromyalgia] Onset: 08-04-2014 Episodic Other connective tissue disease (1 source) Repeated falls; Translations: [Repeated falls] Onset: 01-11-2024 Episodic Other screening for suspected conditions (not mental disorders or infectious disease) (3 sources) Encounter for other screening for malignant neoplasm of breast; Translations: [Encounter for screening mammogram for malignant neoplasm of breast] Onset: 12-31-2023 Episodic Residual codes; unclassified (1 source) Acquired absence of stomach [part of]; Translations: [Acquired absence of stomach [part of]] Onset: 01-11-2024 Episodic Results Test Name Value Interpretation Reference Range Facility [id number] 07-24-2024 [facility] Misc. COMMENT Normal . Comment on above: Order Comment: 'TROP ' Serial specimen #1, #2 or #3: 2 Result Comment: Test Ordered: [id number] Amphetamines Screen, Urine Negative ng/mL UI Reference Range: Mvdlpv=488 Amphetamine test includes Amphetamine and Methamphetamine. Barbiturates Negative ng/mL UI Reference Range: Dkiutp=231 Benzodiazepines Negative ng/mL UI Reference Range: Xkflpc=857 Cocaine (Metab.), Urine Negative ng/mL UI Reference Range: Sqgjoo=584 Opiates Negative ng/mL UI Reference Range: Soiulr=779 Opiate test includes Codeine, Morphine, Hydromorphone, Hydrocodone. 6-Acetylmorphine, Urine Negative ng/mL UI Reference Range: Cutoff=10 Oxycodone/Oxymorphone, Urine Negative ng/mL UI Reference Range: Ynanpe=303 Test includes Oxycodone and Oxymorphone PCP, Urine Negative ng/mL UI Reference Range: Cutoff=25 Methadone Screen, Urine Negative ng/mL UI Reference Range: Unijee=565 Propoxyphene, Urine Negative ng/mL UI Reference Range: Avfmcc=462 Fentanyl, Urine Negative ng/mL UI Reference Range: Cutoff=2.0 Test includes Fentanyl and Norfentanyl This test was developed and its performance characteristics determined by [facility]. It has not been cleared or approved by the Food and Drug Administration. Tramadol Note: ng/mL UI See Final Results Reference Range: Osmvni=885 Tramadol Positive [A ] UI Reference Range: Wdqewr=592 Tramadol Conf, MS, UR >63787 ng/mL UI Reference Range: Aocsso=519 Buprenorphine, Urine Negative ng/mL UI Reference Range: Cutoff=10 Creatinine, Urine 80.6 mg/dL UI Reference Range: 20.0-300.0 pH, Urine 7.1 UI Reference Range: 4.5-8.9 Performed at: [facility] [address] [place], [place] [id number] Emergency Care Attendant: Jenny Kenyon PhD, Phone: [phone] Performed at: - [facility] [id number] Emergency Care Attendant: Franck Leach PhD, Phone: [phone] Performed By: #### L [id number] #### Laboratory [facility] [address] [place], [place], [id number] Urine Drug Screen (VISTA)on 07-21-2024 AMPHETAMINES Negative Normal <1000 ng/mL Comment on above: Order Comment: 'TROP ' Serial specimen #1, #2 or #3: 2 Performed By: #### L [id number] #### Laboratory [address] [place], [address] BARBITIURATES Negative Normal < 200 ng/mL Comment on above: Order Comment: 'TROP ' Serial specimen #1, #2 or #3: 2 Performed By: #### L [id number] #### Laboratory [address] [place], [address] BENZODIAZIPINE Negative Normal < 200 ng/mL Comment on above: Order Comment: 'TROP ' Serial specimen #1, #2 or #3: 2 Performed By: #### L [id number] #### Laboratory [address] [place], [address] BUP Ur Drug Scr Negative Normal < 200 ng/mL Comment on above: Order Comment: 'TROP ' Serial specimen #1, #2 or #3: 2 Performed By: #### L [id number] #### Laboratory [address] [place], [address] COCAINE Negative Normal < 300 ng/mL Comment on above: Order Comment: 'TROP ' Serial specimen #1, #2 or #3: 2 Performed By: #### L [id number] #### Laboratory [address] [place], [address] Fentanyl Negative Normal Comment on above: Order Comment: 'TROP ' Serial specimen #1, #2 or #3: 2 Performed By: #### L [id number] #### Laboratory [address] [place], [place], [address] METHADONE Negative Normal < 300 ng/mL Comment on above: Order Comment: 'TROP ' Serial specimen #1, #2 or #3: 2 Performed By: #### L [id number] #### Laboratory [address] [place], [address] OPIATES Negative Normal < 300 ng/mL Comment on above: Order Comment: 'TROP ' Serial specimen #1, #2 or #3: 2 Performed By: #### L [id number] #### Laboratory [address] [place], [address] OXYCODONE Negative Normal < 100 ng/mL Comment on above: Order Comment: 'TROP ' Serial specimen #1, #2 or #3: 2 Performed By: #### L [id number] #### Laboratory [address] [place], [address] PCP Negative Normal < 25 ng/mL Comment on above: Order Comment: 'TROP ' Serial specimen #1, #2 or #3: 2 Performed By: #### L [id number] #### Laboratory [address] [place], [address] THC Negative Normal < 50 ng/mL Comment on above: Order Comment: 'TROP ' Serial specimen #1, #2 or #3: 2 Performed By: #### L [id number] #### Laboratory [address] [place], [address] MR/BMS.BPon 04-22-2024 MR/BMS.[address], [address] [place] [address] OFFICE VISIT Date of Service: 04/22/24 MR#: [id number] Acct: [id number] Name: LOUISE ALLEN Rep #: [id number] : 1965 Provider: Dr. Laureano Pandey se, DO Age/Sex: 58/F Location: [facility] Status: Signed Intake Vital Signs 01/07/24 14:22 01/11/24 10:14 04/22/24 14:19 Height 5 ft 6 in 5 ft 6 in 5 ft 6 in Weight: 264 lb BMI 42.6 BP 128/79 H 142/78 H Blood Pressure Location Lt brachial Lt brachial Position Sitting Sitting Respiration 16 16 Pulse 82 74 Pulse Source Monitor Monitor BP Intake Visit Reasons: 3 M FU Accompanied by: Self Allergies No Known Drug Allergies Allergy (Mild, Verified 04/22/24 14:24) Other Medications ???Medication ???Instructions ???Recorded ???Confirmed ???Type multivitamin (Daily Multi-Vitamin 1 tab PO DAILY vitamin 08/16/22 0 04/22/24 History tablet) semaglutide 1 mg/dose (4 mg/3 mL) 1 mg subcut TH 12/02/23 04/22/24 History subcutaneous pen injector (Ozempic) tramadol 50 mg tablet 50 mg PO TID PRN PRN pain 12/02/23 04/22/24 History Nebulizer machine #1 ea 01/28/24 04/22/24 Rx duloxetine 60 mg capsule,delayed 60 mg PO BID mental health #180 04/22/24 Rx release caps hydroxyzine HCl 25 mg tablet 25 mg PO Q8H PRN anxiety #270 tabs 04/22/24 04/22/24 Rx lamotrigine 100 mg tablet 100 mg PO QDAY seizures 90 days 04/22/24 Rx #90 tabs prazosin 2 mg capsule 2 mg PO QHS #30 caps 04/22/2404/05 Rx PFSH Medical History (Updated 01/14/24 @ 06:[address] Laureano Min, DO) Nightmares Cluster B personality disorder MDD (major depressive disorder) Polycystic ovaries Hx of headache Arthritis Smoking greater than 20 pack years Irregular heart beat Pneumonia due to 2019 novel coronavirus TAMMI on CPAP Essential hypertension Tobacco use Morbid obesity HLD (hyperlipidemia) Supraventricular tachycardia Fibromyalgia Type 2 diabetes mellitus Osteoporosis Bronchitis Agoraphobia Depression Asthma Anxiety Surgical History H/O cardiac radiofrequency ablation (12/28/23) H/O gastric sleeve H/O colonoscopy with polypectomy History of left knee replacement History of delivery History of tonsillectomy Family History Father Diabetes Colon cancer Cancer Liver Cancer Mother Hypertension Arthritis Mental disorder Diabetes Grandfather Alcoholism Grandfather Alcoholism Grandmother Cancer bone Other Anxiety Osteoporosis Social History household members: spouse current occupational status: unemployed current occupational exposures/hazards: No pets and animals: Yes history of recent travel: Yes sexually active: No Smoking Status: Former smoker quit date: 02/05/17 pack-years: 30 Electronic Cigarette Use: not used alcohol intake: never substance use type: does not use diet: other caffeine: Yes (cutting back on caffeine) luanne/church: Non-Shinto/Independ ent seatbelt use: always do you feel safe at home: Yes additional social history: [place] - Spouse, Kids - Rakan and joy Female Reproductive History Menstrual Date of menopause: 03/08/23 HPI History of Present Illness History provided by: patient HPI: Louise Allen is a 58 year old female who presents today for follow up evaluation. Patient reports that she has been doing good. Feels like her mood has been largely good. Has been taking prazosin with good efficacy. Does feel like it works fairly well. Did have another fall about 1.5 months ago and her neighbor had to help her get up. She is unsure if this is related to medications or something else. Is apprehensive to make med changes because she feels leveled off. Does at times feel like she drops items she picks up. Did not establish with Shari for therapy, as she feels unsure of meeting someone new. Continues to have back pain. Hopes to get back injection in near future. Has been working on improving her spiritual health. Recently started talking again with her oldest son. Review of Systems Constitutional Denies: fever(s), chills, change in weight or fatigue Eyes Denies: change in vision or blurry vision Ears, Nose, Mouth, Throat Denies: throat pain, neck pain or change in hearing Cardiovascular Denies: palpitations or dyspnea Respiratory Denies: dyspnea, cough or wheezing Gastrointestinal Reports: diarrhea; Denies: abdominal pain, nausea, vomiting or constipation Genitourinary Denies: dysuria or urinary frequency Musculoskeletal Reports: back pain and joint pain; Denies: neck pain or muscle weakness Integumentary/Br (more content not included)... Normal 12 Lead EKG performed by RUTHIE on 01-11-2024 12 Lead EKG performed by [facility] [address] [place] [address] 12 Lead EKG performed by [facility] 01/11/24 1014 MR#: [id number] Acct: [id number] Name: LOUISE ALLEN Rep #: [id number] : 1965 58 From: Moisés Díaz MD Attending Dr: Dr. Moisés Díaz MD Status: DEP A MB Ordering Dr: Moisés Díaz MD Date: 01/11/24 Location: [facility] Sex: F C Admitted: [facility]/12 Lead EKG performed by [facility] ECG Report Interpretation S inus Rhythm -Left atrial enlargement. BORDERLINEElectronically signed on 01/11/2024 at 16:32 by Moisés Díaz [employer] Version [id number] 01/11/24 1633 Date Moisés Díaz MD CC: Dr. Fabi Cisneros MD Date Dictated: 01/11/24 1014 Date Transcribed: 01/11/241013 Merchandising Execution Associate: [place] Signed Normal Cardiology Visit Reporton Cardiology Visit Report [facility] [address] [place] [address] OFFICE VISIT Date of Service: 01/11/24 MR#: [id number] Acct: [id number] Name: LOUISE ALLEN Rep #: [id number] : 1965 Provider: Dr. Moisés Díaz MD Age/Sex: 58/F Location: [facility] Status: Signed HPI HPI History of Present Illness Details: This is a 58-year-old female who presents here today for a cardiovascular follow-up.??? She has a history of SVT first noted in November 2019 she was converted with 6 mg of adenosine.??? She did have a another episode in April 2020 which required 6 mg of adenosine to convert.??? Her most recent episode of SVT was in April of 2021, she converted after 12mg of adenosine. She was referred to electrophysiology in May of this year. She states that they recommended she undergo gastric bypass surgery prior to an ablation. She also has a history of hypertension, hyperlipidemia, diabetes, morbid obesity, obstructive sleep apnea and previous tobacco user. She presented to the hospital here was seen by me was noted to be in an SVT we evaluated her performed a cardiac catheterization which demonstrated no obstructive coronary disease and referred her for an EP study. She had an inducible tachycardia with AVNRT for which she underwent slow pathway modification which was successful. Her metoprolol was discontinued and she returns for a follow-up visit today. Her electrocardiogram demonstrates sinus rhythm with a rate of 82 bpm. From a cardiac standpoint, the patient is doing well. She denies any palpitations, chest pain, pressure or heaviness. She denies SOB, Orthopnea, and PND. She does have TAMMI, and has not received her bipap device at this time. She does not have bleeding issues; no blood in urine, stool or nosebleeds. She denies any decrease in energy level, myalgias, or claudication. She does not have edema, or sudden weight gain. She denies dizziness, lightheadedness, syncopal or near syncopal episodes, and headaches. Intake Vital Signs 12/02/23 01:16 01/10/24 13:22 01/11/24 10:14 Height 5 ft 6 in 5 ft 6 in 5 ft 6 in Weight: 267 lb 264 lb BMI 43.0 42.6 BP 126/80 H 128/79 H Blood Pressure Location Lt brachial Lt brachial Position Sitting Sitting Respiration 16 16 Pulse 84 82 Pulse Source Monitor Monitor Temp 97.5 F L Pulse Oximetry (%) 99 Oxygen Delivery Method room air Intake Visit Reasons: S/P [facility] 12/01 SVT Polisher Balance Screwhead Required: No Accompanied by: Self Is patient in pain?: No Allergies No Known Drug Allergies Allergy (Mild, Verified 01/11/24 10:17) Other Medications ???Medication ???Instructions ???Recorded ???Confirmed ???Type albuterol sulfate 2.5 mg/3 mL 2.5 mg (3 mL) inhalation Q4H PRN 09/22/21 01/11/24 Rx (0.083 %) solution for nebulization Sob /Or Wheezing #180 mL albuterol sulfate 90 mcg/actuation 1 - 2 puff inhalation Q4H PRN PRN 09/22/21 01/11/24 Rx aerosol inhaler Wheezing #8.5 grams multivitamin (Daily Multi-Vitamin 1 tab PO DAILY vitamin 08/16/22 01/11/24 History tablet) trazodone 50 mg tablet 75 mg (1.5 x 50 mg) PO QHS sleep 04/03/23 01/11/24 Rx #45 tabs duloxetine 60 mg capsule,delayed 60 mg PO BID mental health #180 08/30/23 01/11/24 Rx release caps hydroxyzine HCl 25 mg tablet 25 mg PO Q8H PRN anxiety #270 tabs 11/05/23 01/11/24 Rx lamotrigine 100 mg tablet 100 mg PO QDAY seizures #30 tabs 11/06/23 01/11/24 Rx semaglutide 1 mg/dose (4 mg/3 mL) 1 mg subcut TH 12/02/23 01/11/24 History subcutaneous pen injector (Ozempic) tramadol 50 mg tablet 50 mg PO TID PRN PRN pain 12/02/23 01/11/24 History Have you fallen in the past year?: Yes PFSH Medical History Cluster B personality disorder MDD (major depressive disorder) Polycystic ovaries Hx of headache Arthritis Smoking greater than 20 pack years Irregular heart beat Pneumonia due to 2019 novel coronavirus TAMMI on CPAP Essential hypertension Tobacco use Morbid obesity HLD (hyperlipidemia) Supraventricular tachycardia Fibromyalgia Type 2 diabetes mellitus Osteoporosis Bronchitis Agoraphobia Depression Asthma Anxiety Surgical History H/O cardiac radiofrequency ablation (12/28/23) H/O gastric sleeve H/O colonoscopy with polypectomy History of left knee replacement History of delivery History of tonsillectomy Family History Father Diabetes Colon cancer Cancer Liver Cancer Mother Hypertension Arthritis Mental disorder Diabetes Grandfather Alcoholism Grandfather Alcoholism Grandmother Cancer bone Other Anxiety Osteoporosis Social History ... Normal MR/BMS.BPon 01-07-2024 MR/BMS.BP [facility] ry [address], [address] [place] [address] OFFICE VISIT Date of Service: 01/07/24 MR#: [id number] Acct: [id number] Name: LOUISE ALLEN Rep #: [id number] : 1965 Provider: Dr. Laureano Pandey se, DO Age/Sex: 58/F Location: [facility]BP Status: Signed Intake Vital Signs 09/27/23 09:30 12/27/23 14:16 01/07/24 14:22 Height 5 ft 6 in 5 ft 6 in 5 ft 6 in BP 139/79 H Blood Pressure Location Rt brachial Position Sitting Respiration 16 Pulse 85 Pulse Source Monitor BP Intake Visit Reasons: 2 M FU Accompanied by: Friend Allergies No Known Drug Allergies Allergy (Mild, Verified 01/07/24 14:27) Other Medications ???Medication ???Instructions ???Recorded ???Confirmed ???Type albuterol sulfate 2.5 mg/3 mL 2.5 mg (3 mL) inhalation Q4H PRN 09/22/21 01/07/24 Rx (0.083 %) solution for nebulization Sob /Or Wheezing #180 mL albuterol sulfate 90 mcg/actuation 1 - 2 puff inhalation Q4H PRN PRN 09/22/21 01/07/24 Rx aerosol inhaler Wheezing #8.5 grams multivitamin (Daily Multi-Vitamin 1 tab PO DAILY vitamin 08/16/22 01/07/24 History tablet) trazodone 50 mg tablet 75 mg (1.5 x 50 mg) PO QHS sleep 04/03/23 01/07/24 Rx #45 tabs duloxetine 60 mg capsule,delayed 60 mg PO BID mental health #180 08/30/23 01/07/24 Rx release caps hydroxyzine HCl 25 mg tablet 25 mg PO Q8H PRN anxiety #270 tabs 11/05/23 01/07/24 Rx lamotrigine 100 mg tablet 100 mg PO QDAY seizures #30 tabs 11/06/23 01/07/24 Rx semaglutide 1 mg/dose (4 mg/3 mL) 1 mg subcut TH 12/02/23 01/07/24 History subcutaneous pen injector (Ozempic) tramadol 50 mg tablet 50 mg PO TID PRN PRN pain 12/02/23 01/07/24 History PFSH Medical History Cluster B personality disorder MDD (major depressive disorder) Polycystic ovaries Hx of headache Arthritis Smoking greater than 20 pack years Irregular heart beat Pneumonia due to 2019 novel coronavirus TAMMI on CPAP Essential hypertension Tobacco use Morbid obesity HLD (hyperlipidemia) Supraventricular tachycardia Fibromyalgia Type 2 diabetes mellitus Osteoporosis Bronchitis Agoraphobia Depression Asthma Anxiety Surgical History H/O gastric sleeve H/O colonoscopy with polypectomy History of left knee replacement History of delivery History of tonsillectomy Family History Father Diabetes Colon cancer Cancer Liver Cancer Mother Hypertension Arthritis Mental disorder Diabetes Grandfather Alcoholism Grandfather Alcoholism Grandmother Cancer bone Other Anxiety Osteoporosis Social History household members: spouse current occupational status: unemployed current occupational exposures/hazards: No pets and animals: Yes history of recent travel: Yes sexually active: No Smoking Status: Former smoker quit date: 02/05/17 pack-years: 30 Electronic Cigarette Use: not used alcohol intake: never substance use type: does not use diet: other caffeine: Yes (cutting back on caffeine) luanne/church: Non-Shinto/Independ ent seatbelt use: always do you feel safe at home: Yes additional social history: [place] - Spouse, Kids - Rakan and joy Female Reproductive History Menstrual Date of menopause: 03/08/23 HPI History of Present Illness History provided by: patient HPI: Louise Allen is a 58 year old female who presents today for follow up evaluation. Patient reports that she has been doing pretty good. Did try to get in to IOP but could not afford. Recently has been having some SVTs and had a heart cath two and a half weeks ago and an ablation two weeks ago. Physically has been feeling somewhat better. Has had some falls with walking on uneven ground. Did try to apply for disability but was denied. 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 Sleep has been somewhat poor, with inability to stay asleep. Has panic attacks in the middle of the night and feels like she is in the project management advisor of a panic attack. Feels like lamotrigine has been very helpful with mood symptoms. She has not been seeing a therapist secondary to being discharged secondary to missing appointments. Has not been talking with her oldest son. Review of Systems Constitutional Denies: fever(s), chills, change in weight or fatigue Eyes Denies: change in vision or blurry vision Ears, Nose, Mouth, Throat Denies: throat pain, neck pain or change in hearing Cardiovascular Denies: palpitations or dyspnea Respiratory Denies: dyspnea, cough or wheezing Gastrointestinal Reports: diarrhea; Denies (more content not included)... Normal 12 Lead EKGon 12-28-2023 12 Lead EKG [facility] Cardiovascular Services [address] [place] [address] 12 Lead EKG 12/27/23 1335 MR#: [id number] Acct: [id number] Name: LOUISE ALLEN Rep #: [id number] : 1965 58 From: Jones Sultana MD Attending Dr: Dr. Moisés Díaz MD Status: DIS I NO Ordering Dr: Cary Brasher Date: 12/07 03/31 Location: PCU Sex: F C Admitted: 12/27/23 Test Reason : PCI Blood Pressure : */* mmHG Vent. Rate : 67 BPM Atrial Rate : 67 BPM P-R Int : 158 ms QRS Dur : 82 ms QT Int : 430 ms P-R-T Axes : 54 16 14 degrees QTcB Int : 454 ms Normal sinus rhythm Normal ECG When compared with ECG of 17-Dec-2023 05:12, No significant change was found Confirmed by JONES SULTANA ([id number]), editor news RAQUEL GILL ([id number]) on 12/28/2023 1:47:02 PM Referred By: Moisés Díaz Confirmed By: JONES SULTANA 12/28/23 1347 Date Jones Sultana MD CC: Dr. Fabi Cisneros MD; Dr. Moisés Díaz MD; AGUSTO August Signed Normal Discharge Instructionon 12-07 Discharge Instruction [facility] Medical Records Department [address] [place] [address] Instructions for Home/Discharge Instructions 12/28/23 0946 MR#: [id number] Acct: [id number] Name: LOUISE ALLEN Rep #: [id number] : 1965 58 From: Cary LIZ PA PCP: Dr. Fabi Cisneros MD Status:ADM CELSA Discharge Instructions Diet Discharge Diet: No restrictions Activity Discharge Activity: No Restrictions (Do not lift anything greater than 10 pounds for 3 days.) Dressing / Incision Call your doctor if your incision/area has: Continuous Slow Oozing, Sudden Increased Bleeding, Increased Pain/ Swelling, Increased Redness, Foul Smelling Discharge and Swelling at the incision site Follow Up Care Please Follow Up With: Moisés Díaz MD Test Results: Test results from this visit will be discussed in further detail at your follow-up appointment, if applicable. Discharge Plan Admission Admit Date/Time: 12/27/23 12:56 Primary Reason for Your Visit: SVT ablation Attending Provider: Moisés Díaz Primary Care Provider: Fabi Cisneros Discharge Orders/Prescriptions Prescriptions: Continued albuterol sulfate 90 mcg/actuation HFA aerosol inhaler 1 - 2 puff INHALATION Q4H PRN PRN (Reason: Wheezing) Qty: 8.5 5RF albuterol sulfate 2.5 mg /3 mL (0.083 %) solution for nebulization 2.5 mg inhalation Q4H PRN (Reason: Sob /Or Wheezing) Qty: 180 3RF multivitamin [Daily Multi-Vitamin] Tablet 1 tab PO DAILY Ozempic 1 mg/dose (4 mg/3 mL) pen injector 1 mg subcut TH tramadol 50 mg tablet 50 mg PO TID PRN PRN (Reason: pain) trazodone 50 mg tablet 75 mg PO QHS Qty: 45 1RF duloxetine 60 mg capsule,delayed release(DR/EC) 60 mg PO BID Qty: 180 1RF hydroxyzine HCl 25 mg tablet 25 mg PO Q8H PRN (Reason: anxiety) Qty: 270 1RF lamotrigine 100 mg tablet 100 mg PO QDAY Qty: 30 2RF Discontinued metoprolol tartrate 50 mg tablet See Rx Instructions .ROUTE .COMPLEX Qty: 180 3RF Dose Instruction: TAKE 1 TABLET BY MOUTH TWICE A DAY Rx Instructions: TAKE 1 TABLET BY MOUTH TWICE A DAY Referrals / Follow Up: Fabi Cisneros MD [Primary Care Provider] - Disposition Disposition (needs filled in before D/C Order can be placed): Home, Self Care 12/28/23 0951 Cary LIZ CC: Dr. Fabi Cisneros MD Signed Normal 12 Lead EKGon 12-27-2023 12 Lead EKG [facility] Cardiovascular Services [address] [place] [address] 12 Lead EKG 12/28/23 0503 MR#: [id number] Acct: [id number] Name: LOUISE ALLEN Rep #: [id number] : 1965 58 From: Jones Sultana MD Attending Dr: Dr. Moisés Díaz MD Status: DIS I NO Ordering Dr: Cary Brasher Date: 12/07 02/28 Location: U Sex: F C Admitted: 12/27/23 Test Reason : AM EKG Blood Pressure : */* mmHG Vent. Rate : 75 BPM Atrial Rate : 75 BPM P-R Int : 162 ms QRS Dur : 90 ms QT Int : 438 ms P-R-T Axes : 55 20 24 degrees QTcB Int : 489 ms Normal sinus rhythm Prolonged QT Abnormal ECG When compared with ECG of 27-Dec-2023 13:35, MANUAL COMPARISON REQUIRED DATA IS UNCONFIRMED Confirmed by JONES SULTANA ([id number]), editor news RAQUEL GILL ([id number]) on 12/31/2023 6:16:58 AM Referred By: Moisés Díaz Confirmed By: JONES SULTANA 12/31/23 0616 Date Jones Sultana MD CC: Dr. Fabi Cisneros MD; Dr. Moisés Díaz MD; AGUSTO August Signed Normal Basic Metabolic Profile (BMP )on 12-27-2023 BUN/CRE 34.7 RATIO High 10-20 Comment on above: Performed By: #### L 500.2500 #### Laboratory [address] [place], [address] CA,Total 9.2 mg/dL Normal 8.5-10.1 Comment on above: Performed By: #### L 500.2500 #### Laboratory [address] [place], [address] Chloride [Moles/Vol] 105 mmol/L Normal 98-107 Comment on above: Performed By: #### L 500.2500 #### Laboratory [address] [place], [address] CO2 [Moles/Vol] 29.0 mmol/L Normal 21.0-32.0 Comment on above: Performed By: #### L 500.2500 #### Laboratory [address] [place], [address] Creatinine [Mass/Vol] 0.69 mg/dL Normal 0.55-1.02 Comment on above: Result Comment: The validity of the calculated GFR GFRAA in patients over 70 years has not been determined. Clinical correlation is essential. Performed By: #### L 500.2500 #### Laboratory [address] [place], [address] ECRCL 126.54 ml/min Normal Comment on above: Performed By: #### L 500.2500 #### Laboratory [address] [place], [address] EST GFR - AA 112 mL/min Normal >60 Comment on above: Result Comment: Afri can Macanese GFR Calc Performed By: #### L 500.2500 #### Laboratory [address] [place], [address] GAP 4 Low 5-15 Comment on above: Performed By: #### L 500.2500 #### Laboratory [address] [place], [address] GFR/1.73 sq M.predicted among non-blacks MDRD (S/P/Bld) [Vol rate/Area] 93 mL/min/{1.73_m2} Normal >60 Comment on above: Result Comment: Non- GFR Calc Performed By: #### L 500.2500 #### Laboratory [address] [place], [address] Glucose [Mass/Vol] 87 mg/dL Normal 74-106 [facility] Comment on above: Performed By: #### L 500.2500 #### Laboratory [address] [place], [address] Potassium [Moles/Vol] 3.6 mmol/L Normal 3.5-5.1 Comment on above: Performed By: #### L 500.2500 #### Laboratory [address] [place], [address] Sodium [Moles/Vol] 139 mmol/L Normal 136-145 [facility] Comment on above: Performed By: #### L 500.2500 #### Laboratory [address] [place], [address] Urea nitrogen [Mass/Vol] 24 mg/dL High 7-18 Comment on above: Performed By: #### L 500.2500 #### Laboratory [address] [place], [place], [address] CVS/ELECTROSTUon 12-27-2023 CVS/ELECTROSTU [facility] Cardiovascular Services [address] [place] [address] Electrophysiology Report MR#: [id number] Acct: [id number] Name: LOUISE ALLEN Rep #: [id number] : 1965 F 58 From: Jass Sánchez MD PCP: Dr. Fabi Cisneros MD Status: ADM CELSA Study: Date of Exam: Exam# Ordering Dr: Electrophysiology Report Electrophysiology Report Louise Allen is a 58 year old female who has a past medical history of htn and hld, who presented to the [place] EP lab for further evaluation regarding SVT. Procedure Summary * Patient prepped and draped in sterile fashion. * Right groin infiltrated with lidocaine. * Right femoral access obtained x3 with ultrasound guidance. * Sheaths inserted into femoral veins via Seldinger technique. * Catheters inserted through right groin. * EPS results listed below in conclusions. * Sheaths pulled in lab and hemostasis achieved per protocol. Findings: BASELINE SCL: 867ms AH: 67ms HV: 54ms Maximum SNRT: 1117ms CSNRT: 250ms BASELINE Inducible Tachycardia: Y, very easily inducible tachycardia Diagnosis: AVNRT- Short VA, long PPI, VAV response, Long S-A, V-A VA interval at Hisduring tachycardia: <70ms Ablation of: slow pathway Ablation Parameters: power titration Ablation Catheter Used: SF irrigated Results of Ablation Site of Ablation: slow pathway modification with multiple junctional beats Successful Post Ablation Testing BASELINE SCL: 800ms AH: 75ms HV: ms AVBCL: 52ms Atrial ERP 200ms @ 560ms VAB: 320ms VERP 200 @ 500ms Conclusions 1. Baseline rhythm is sinus rhythm. 2. Normal sinus node function (longest SNRT 1117ms). 3. Normal AV node function, normal infranodal conduction (HV= 54ms). 4. No evidence of accessory pathway. 5. Evidence ofdual AV node physiology. 6. VA conduction present and is decremental.??? 7. Easily inducible AVNRT (short VA, long ppi-TCL, long SA-VA, VAV response) at baseline 8. Ablation performed to slow pathway region with multiple junctional beats 9. Post ablation with single echo beat, no inducible AVNRT Recommendations 1. Successful slow pathway modification 2. Bedrest for 3 hours 3. The patient can continue to follow-up with Dr. Díaz. 4. Stop metoprolol unless another clinical indication 5. Observe overnight. 12/27/23 1250 Date Jass Sánchez MD CC: Dr. Fabi Cisneros MD; Dr. Moisés Díaz MD Date Dictated: 12/27/23 1241 Date Transcribed: 12/27/23 124 Merchandising Execution Associate: SS Signed Normal 12 Lead EKGon 12-17-2023 12 Lead EKG [facility] Cardiovascular Services [address] [place] [address] 12 Lead EKG 12/16/23 0549 MR#: [id number] Acct: [id number] Name: LOUSIE ALLEN Rep #: [id number] : 1965 58 From: Moisés Díaz MD Attending Dr: Dr. Deonte Houser MD Status : ADM IN Ordering Dr: Jones Sultana MD Date: 12/17/23 Location: ICU Sex: F C Admitted: 12/16/23 Test Reason : CP Blood Pressure : */* mmHG Vent. Rate : 165 BPM Atrial Rate : * BPM P-R Int : * ms QRS Dur : 70 ms QT Int : 284 ms P-R-T Axes : * 21 138 degrees QTcB Int : 470 ms Critical Test Result: High HR Supraventricular tachycardia Nonspecific ST and T wave abnormality Abnormal ECG Confirmed by BRE JONES, MOISÉS ([id number]), editor news LORI MANN ([id number]) on 12/17/2023 10:16:30 AM Referred By: Confirmed By: MOISÉS DÍAZ MD 12/17/23 1016 Date Moisés Díaz MD CC: Dr. Fabi Cisneros MD; Dr. Jones Sultana MD; Dr. Deonte Houser MD Signed Normal 12 Lead EKG [facility] Cardiovascular Services [address] [place] [address] 12 Lead EKG 12/17/23 0512 MR#: [id number] Acct: [id number] Name: LOUISE ALLEN Rep #: [id number] : 1965 58 From: Moisés Díaz MD Attending Dr: Dr. Deonte Houser MD Status : ADM IN Ordering Dr: Cindy Chaidez DO Date: 12/17/23 Location: ICU Sex: F C Admitted: 12/16/23 Test Reason : am ekg Blood Pressure : */* mmHG Vent. Rate : 72 BPM Atrial Rate : 72 BPM P-R Int : 154 ms QRS Dur : 80 ms QT Int : 428 ms P-R-T Axes : 60 18 22 degrees QTcB Int : 468 ms Normal sinus rhythm with sinus arrhythmia Normal ECG When compared with ECG of 16-Dec-2023 06:24, MANUAL COMPARISON REQUIRED DATA IS UNCONFIRMED Confirmed by BRE JONES, MOISÉS ([id number]), editor news RAQUEL GILL ([id number]) on 12/17/2023 12:41:22 PM Referred By: Dm Confirmed By: MOISÉS DÍAZ MD 12/17/23 1241 Date Moisés Díaz MD CC: Dr. Fabi Cisneros MD; Dr. Cindy Chaidez DO; Dr. Deonte Houser MD Signed Normal Bedside Glucoseon 12-17-2023 FINGERSTICK GLU 155 mg/dL High 74-106 Comment on above: Result Comment: BERNARD GEMENT OF PATIENT CARE PER NURSING PROTOCOL Performed By: #### L 501.4020, L500.2500, L100.0100 #### Laboratory [address] [place], [address] FINGERSTICK GLU 80 mg/dL Normal 74-106 Comment on above: Result Comment: BERNARD GEMENT OF PATIENT CARE PER NURSING PROTOCOL Performed By: #### L 501.080 #### Laboratory [address] [place], [address] CBC W/Diff, Automatedon 11- Absolute Lymph 3.52 X10 3/uL Normal 0.83-4.51 Comment on above: Performed By: #### L 501.9985, L501.9520, L500.4050, L501.2300, L500.4100, L501.5200, L100.0100 #### [address] [place], [address] Absolute Neut 3.5 X10 3/uL Normal 2.0-7.7 Comment on above: Performed By: #### L 501.9985, L501.9520, L500.4050, L501.2300, L500.4100, L501.5200, L100.0100 #### [address] [place], [address] Basophils/100 WBC (Bld) 1.1 % High 0-1 Comment on above: Performed By: #### L 501.9985, L501.9520, L500.4050, L501.2300, L500.4100, L501.5200, L100.0100 #### [address] [place], [address] Eosinophils/100 WBC (Bld) 6.7 % High 0-5 Comment on above: Performed By: #### L 501.9985, L501.9520, L500.4050, L501.2300, L500.4100, L501.5200, L100.0100 #### [address] [place], [address] Erythrocyte distribution width (RBC) [Ratio] 12.8 % Normal 11.6-14.6 Comment on above: Performed By: #### L 501.9985, L501.9520, L500.4050, L501.2300, L500.4100, L501.5200, L100.0100 #### [address] [place], [address] Hematocrit (Bld) [Volume fraction] 36.6 % Low 37-47 Comment on above: Performed By: #### L 501.9985, L501.9520, L500.4050, L501.2300, L500.4100, L501.5200, L100.0100 #### [address] [place], [address] Hemoglobin (Bld) [Mass/Vol] 12.5 g/dL Normal 12.0-15.0 Comment on above: Performed By: #### L 501.9985, L501.9520, L500.4050, L501.2300, L500.4100, L501.5200, L100.0100 #### [address] [place], [address] IG% 0.400 Normal 0.0-0.9 Comment on above: Result Comment: IG% - Immature Granulocytes (promyelocytes, myelocytes and metamyelocytes) > 1% indicates that a LEFT SHIFT is Present. Performed By: #### L 501.9985, L501.9520, L500.4050, L501.2300, L500.4100, L501.5200, L100.0100 #### [address] [place], [address] Lymphocytes/100 WBC (Bld) 42.4 % High 19-41 Comment on above: Performed By: #### L 501.9985, L501.9520, L500.4050, L501.2300, L500.4100, L501.5200, L100.0100 #### [address] [place], [address] MCH (RBC) [Entitic mass] 31.2 pg Normal 27.0-32.0 Comment on above: Performed By: #### L 501.9985, L501.9520, L500.4050, L501.2300, L500.4100, L501.5200, L100.0100 #### [address] [place], [address] MCHC (RBC) [Mass/Vol] 34.2 g/dL Normal 32-36 Comment on above: Performed By: #### L 501.9985, L501.9520, L500.4050, L501.2300, L500.4100, L501.5200, L100.0100 #### [address] [place], [address] MCV (RBC) [Entitic vol] 91.3 fL Normal 81-99 Comment on above: Performed By: #### L 501.9985, L501.9520, L500.4050, L501.2300, L500.4100, L501.5200, L100.0100 #### [address] [place], [address] Monocytes/100 WBC (Bld) 7.8 % Normal 0-10 Comment on above: Performed By: #### L 501.9985, L501.9520, L500.4050, L501.2300, L500.4100, L501.5200, L100.0100 #### [address] [place], [address] Neutrophils/100 WBC (Bld) 41.6 % Low 47-70 Comment on above: Performed By: #### L 501.9985, L501.9520, L500.4050, L501.2300, L500.4100, L501.5200, L100.0100 #### [address] [place], [address] Nucleated RBC (Bld) [#/Vol] 0 10*3/uL Normal 0-5 Comment on above: Performed By: #### L 501.9985, L501.9520, L500.4050, L501.2300, L500.4100, L501.5200, L100.0100 #### [address] [place], [address] Platelet mean volume (Bld) [Entitic vol] 9.8 fL Normal 6.2-12.0 Comment on above: Performed By: #### L 501.9985, L501.9520, L500.4050, L501.2300, L500.4100, L501.5200, L100.0100 #### [address] [place], [address] Platelets (Bld) [#/Vol] 238 10*3/uL Normal 150-450 Comment on above: Performed By: #### L 501.9985, L501.9520, L500.4050, L501.2300, L500.4100, L501.5200, L100.0100 #### [address] [place], [address] RBC (Bld) [#/Vol] 4.01 10*6/uL Low 4.2-5.4 [facility] Comment on above: Performed By: #### L 501.9985, L501.9520, L500.4050, L501.2300, L500.4100, L501.5200, L100.0100 #### [address] [place], [address] RDW SD 42.5 fl Normal 35.1-43.9 Comment on above: Performed By: #### L 501.9985, L501.9520, L500.4050, L501.2300, L500.4100, L501.5200, L100.0100 #### [address] [place], [address] WBC (Bld) [#/Vol] 8.3 10*3/uL Normal 4.4-11.0 [facility] Comment on above: Performed By: #### L 501.9985, L501.9520, L500.4050, L501.2300, L500.4100, L501.5200, L100.0100 #### [address] [place], [address] Cardiac Cath Diagn[facility]icon Cardiac Cath Diagnostic [facility] Imaging Services [address] [place] [address] Cardiac Cath Diagnostic MR#: [id number] Acct: [id number] Name: LOUISE ALLEN Rep #: [id number] : 1965 58 From: Moisés Díaz MD PCP: Dr. Fabi Cisneros MD Status:ADM IN Patient Name: LOUISE ALLEN Study Date: 12/17/2023 Performing: Moisés Díaz MD Ht: 66 inches 167.64 cm : 1965 Wt: 258.1 lbs 116.9 kg Age: 58 Gender: female BSA: 2.23 PROCEDURE(S) PERFORMED DC01-(94807)LHC/COR/LV CLINICAL PROFILE AND INDICATIONS Indications: Cardiac Arrythmia Heart Failure: None Stress/Imaging Stress/Image Study Performed: No CAD Presentations: Symptom unlikely to be ischemic. CONCLUSIONS Normal coronary arteries Normal LV size, wall motion,and systolic function RECOMMENDATIONS Will consider SVT ablation. DESCRIPTION OF PROCEDURE The patient arrived to the procedure lab. The risks and benefits of the procedure as well as a full description of our services here and current unavailability of surgical backup were fully explained to the patient and/or their significant other prior to the catheterization. The Timeout was completed, verifying the correct patient and procedure. The patient's procedural site was prepped and draped in the usual fashion. Local anesthetic was given subcutaneously to right radial region with Lidocaine 2%. Using a modified Seldinger technique, arterial access was obtained via the right radial artery, a 6Fr sheath was inserted. Left Coronary Artery selective angiography was performed in multiple views using a 5 Fr. 4.0 Bristow catheter. Right Coronary Artery selective angiography was then performed in multiple views using a 5 Fr. 4.0 Bristow catheter. Left Ventriculography was performed in QUINN projection using a 5 Fr. Pigtail catheter. LV to AO pullback pressures were then recorded.The arterial sheath was pulled and a TR Band was applied for hemostasis w/ 13ml air CORONARY ANGIOGRAPHY DOMINANCE: Co- Dominant LEFT HEART ASSESSMENT Left Ventricular Ejection Fraction: by LV Gram 60 % Normal LV wall motion Normal Left Ventricular systolic function Normal Left Ventricular systolic function LEFT MAIN: Angiographically normal LEFT ANTERIOR DESCENDING ARTERY: Angiographically normal CIRCUMFLEX ARTERY: Angiographically normal RIGHT CORONARY ARTERY: Angiographically normal COMPLICATIONS No Complications PROCEDURE MEDICATIONS Versed 1 mg IV Fentanyl 50 mcg IV Versed 1 mg IV Oxygen: 2 L/min via nasal cannula Heparin given IA 12/17/2023 08:00:08 Verapamil 2.5mg, Ntg 200mcgs, 2000 units of Heparin given IA 12/17/2023 08:00:08 SUMMARY OF HEMODYNAMIC DATA Time AIR REST ECG 07:43:03 AO 132/70 (99) SA 08:04:49 LV 127/-8, 1 08:09:23 LV 148/-2, 1 08:09:31 LV 0/0, 1 08:09:56 LV 142/2, 6 08:10:05 LVp 136/0, 5 08:10:08 AOp 143/47 (66) 08:10:15 Signed By Moisés Díaz MD On 12/17/2023 08:33:03 Moisés Díaz MD 12/17/23 08 Date Moisés Phanigner Signature: Date (if indicated) CC: Dr. Fabi Cisneros MD; Dr. Moisés Díaz MD; Dr. Deonte Houser MD Date Dictated: 12/17/23752 Date Transcribed: 12/17/23832 Merchandising Execution Associate: CO Signed Normal Comprehensive Metabolic Prof ilon 12-17-2023 Albumin [Mass/Vol] 2.9 g/dL Low 3.2-5.0 [facility] Comment on above: Performed By: #### L 501.9985, L501.9520, L500.4050, L501.2300, L500.4100, L501.5200, L100.0100 #### [address] [place], [address] Albumin/Globulin [Mass ratio] 1.1 {ratio} Normal 0.9-2.4 Comment on above: Performed By: #### L 501.9985, L501.9520, L500.4050, L501.2300, L500.4100, L501.5200, L100.0100 #### [address] [place], [address] ALK P 60 U/L Normal 45-117 Comment on above: Performed By: #### L 501.9985, L501.9520, L500.4050, L501.2300, L500.4100, L501.5200, L100.0100 #### [address] [place], [address] ALT [Catalytic activity/Vol] 19 U/L Normal 13-56 Comment on above: Performed By: #### L 501.9985, L501.9520, L500.4050, L501.2300, L500.4100, L501.5200, L100.0100 #### [address] [place], [place], [id number] AST [Catalytic activity/Vol] 17 U/L Normal 15-37 Comment on above: Performed By: #### L 501.9985, L501.9520, L500.4050, L501.2300, L500.4100, L501.5200, L100.0100 #### [address] [place], [place], [address] Bilirubin [Mass/Vol] 0.40 mg/dL Normal 0.20-1.00 Comment on above: Result Comment: For patients on eltrombopag therapy, use of Dimension [place] TBIL is not recommended. Performed By: #### L 501.9985, L501.9520, L500.4050, L501.2300, L500.4100, L501.5200, L100.0100 #### [address] [place], [place], [id number](855) BUN/CRE 31.2 RATIO High 10-20 Comment on above: Performed By: #### L 501.9985, L501.9520, L500.4050, L501.2300, L500.4100, L501.5200, L100.0100 #### [address] [place], [address] CA,Total 8.9 mg/dL Normal 8.5-10.1 Comment on above: Performed By: #### L 501.9985, L501.9520, L500.4050, L501.2300, L500.4100, L501.5200, L100.0100 #### [address] [place], [address] Chloride [Moles/Vol] 112 mmol/L High 98-107 Comment on above: Performed By: #### L 501.9985, L501.9520, L500.4050, L501.2300, L500.4100, L501.5200, L100.0100 #### [address] [place], [address] CO2 [Moles/Vol] 25.0 mmol/L Normal 21.0-32.0 Comment on above: Performed By: #### L 501.9985, L501.9520, L500.4050, L501.2300, L500.4100, L501.5200, L100.0100 #### [address] [place], [address] Creatinine [Mass/Vol] 0.54 mg/dL Low 0.55-1.02 Comment on above: Result Comment: The validity of the calculated GFR GFRAA in patients over 70 years has not been determined. Clinical correlation is essential. Performed By: #### L 501.9985, L501.9520, L500.4050, L501.2300, L500.4100, L501.5200, L100.0100 #### [address] [place], [address] ECRCL 147.61 ml/min Normal Comment on above: Performed By: #### L 501.9985, L501.9520, L500.4050, L501.2300, L500.4100, L501.5200, L100.0100 #### [address] [place], [address] EST GFR - AA 148 mL/min Normal >60 Comment on above: Result Comment: Afri can Macanese GFR Calc Performed By: #### L 501.9985, L501.9520, L500.4050, L501.2300, L500.4100, L501.5200, L100.0100 #### [address] [place], [address] GAP 4 Low 5-15 Comment on above: Performed By: #### L 501.9985, L501.9520, L500.4050, L501.2300, L500.4100, L501.5200, L100.0100 #### [address] [place], [address] GFR/1.73 sq M.predicted among non-blacks MDRD (S/P/Bld) [Vol rate/Area] 122 mL/min/{1.73_m2} Normal >60 Comment on above: Result Comment: Non- GFR Calc Performed By: #### L 501.9985, L501.9520, L500.4050, L501.2300, L500.4100, L501.5200, L100.0100 #### [address] [place], [place], [id number]) Globulin (S) [Mass/Vol] 2.6 g/dL Normal 2.2-4.2 Comment on above: Performed By: #### L 501.9985, L501.9520, L500.4050, L501.2300, L500.4100, L501.5200, L100.0100 #### [address] [place], [address] Glucose [Mass/Vol] 99 mg/dL Normal 74-106 [facility] Comment on above: Performed By: #### L 501.9985, L501.9520, L500.4050, L501.2300, L500.4100, L501.5200, L100.0100 #### [address] [place], [address] Potassium [Moles/Vol] 3.4 mmol/L Low 3.5-5.1 Comment on above: Performed By: #### L 501.9985, L501.9520, L500.4050, L501.2300, L500.4100, L501.5200, L100.0100 #### [address] [place], [address] Sodium [Moles/Vol] 141 mmol/L Normal 136-145 [facility] Comment on above: Performed By: #### L 501.9985, L501.9520, L500.4050, L501.2300, L500.4100, L501.5200, L100.0100 #### [address] [place], [address] T PROT 5.5 g/dL Low 6.4-8.2 Comment on above: Performed By: #### L 501.9985, L501.9520, L500.4050, L501.2300, L500.4100, L501.5200, L100.0100 #### [address] [place], [address] Urea nitrogen [Mass/Vol] 17 mg/dL Normal 7-18 Comment on above: Performed By: #### L 501.9985, L501.9520, L500.4050, L501.2300, L500.4100, L501.5200, L100.0100 #### [address] [place], [address] Discharge Instructionon 12-06 Discharge Instruction [facility] Medical Records Department [address] [place] [address] Instructions for Home/Discharge Instructions 12/17/23 1542 MR#: [id number] Acct: [id number] Name: LOUISE ALLEN Rep #: [id number] : 1965 58 From: Deonte Houser MD PCP: Dr. Fabi Cisneros MD Status:ADM IN Discharge Instructions Diet Discharge Diet: Low fat / Low cholesterol Activity Discharge Activity: Return to Normal Activity Dressing / Incision Call your doctor if you observe: Fever of 101 or Higher, Shortness of breath, Dizziness, Fainting spells, Swelling in the ankles, Chest pain and Increased palpitations (irregular heartbeat) Follow Up Care Test Results: Test results from this visit will be discussed in further detail at your follow-up appointment, if applicable. Discharge Plan Admission Admit Date/Time: 12/16/23 08:48 Attending Provider: Deonte Houser Primary Care Provider: Fabi Cisneros Consulting Providers: Joens Sultana; Cindy Chaidez Discharge Orders/Prescriptions Prescriptions: Continued albuterol sulfate 90 mcg/actuation HFA aerosol inhaler 1 - 2 puff INHALATION Q4H PRN PRN (Reason: Wheezing) Qty: 8.5 5RF albuterol sulfate 2.5 mg /3 mL (0.083 %) solution for nebulization 2.5 mg inhalation Q4H PRN (Reason: Sob /Or Wheezing) Qty: 180 3RF multivitamin [Daily Multi-Vitamin] Tablet 1 tab PO DAILY Ozempic 1 mg/dose (4 mg/3 mL) pen injector 1 mg subcut TH tramadol 50 mg tablet 50 mg PO TID PRN PRN (Reason: pain) metoprolol tartrate 50 mg tablet See Rx Instructions .ROUTE .COMPLEX Qty: 180 3RF Dose Instruction: TAKE 1 TABLET BY MOUTH TWICE A DAY Rx Instructions: TAKE 1 TABLET BY MOUTH TWICE A DAY trazodone 50 mg tablet 75 mg PO QHS Qty: 45 1RF duloxetine 60 mg capsule,delayed release(DR/EC) 60 mg PO BID Qty: 180 1RF hydroxyzine HCl 25 mg tablet 25 mg PO Q8H PRN (Reason: anxiety) Qty: 270 1RF lamotrigine 100 mg tablet 100 mg PO QDAY Qty: 30 2RF Referrals / Follow Up: Fabi Cisneros MD [Primary Care Provider] - Within 1 Week BreMoisés holder MD [Med Staff - Active Staff] - Disposition Disposition (needs filled in before D/C Order can be placed): Home, Self Care 12/17/23 154 Deonte Houser MD CC: Dr. Fabi Cisneros MD; Dr. Jones Sultana MD; Dr. Cindy Chaidez DO Signed Normal Hemoglobin A1con 12-17-2023 HbA1c (Bld) [Mass fraction] 4.9 % Normal 3.8-5.6 Comment on above: Result Comment: Norm al < 5.7 % Prediabetic 5.7 - 6.4 % Diabetic >or= 6.5 % Please note range changes. Performed By: #### L 501.9985, L501.9520, L500.4050, L501.2300, L500.4100, L501.5200, L100.0100 #### [address] [facility] [place], [place], [id number] Lipid Profileon 12-17-2023 Cholesterol [Mass/Vol] 188 mg/dL Normal 200 Comment on above: Result Comment: <200 mg/dL Desirable 200-240 mg/dL Borderline >240 mg/dL High Risk Performed By: #### L 501.9985, L501.9520, L500.4050, L501.2300, L500.4100, L501.5200, L100.0100 #### [address] [facility] [place], [address] Cholesterol in HDL [Mass/Vol] 45 mg/dL Normal Comment on above: Result Comment: The drugs N-Acetylcysteine and Metamizole may falsely depress this assay. Reference Range HDL <40 mg/dL Low HDL Cholesterol HDL >or= 60 mg/dL High HDL Cholesterol Performed By: #### L 501.9985, L501.9520, L500.4050, L501.2300, L500.4100, L501.5200, L100.0100 #### [address] [place], [address] Cholesterol in LDL [Mass/Vol] 110 mg/dL Normal 0-130 Comment on above: Performed By: #### L 501.9985, L501.9520, L500.4050, L501.2300, L500.4100, L501.5200, L100.0100 #### [address] [place], [address] Cholesterol in VLDL [Mass/Vol] 33 mg/dL Normal 5-40 Comment on above: Performed By: #### L 501.9985, L501.9520, L500.4050, L501.2300, L500.4100, L501.5200, L100.0100 #### [address] [place], [address] Triglyceride [Mass/Vol] 164 mg/dL Normal Comment on above: Result Comment: The drugs N-Acetylcysteine and Metamizole may falsely depress this assay. Serum Triglycerides Reference Interval Normal <150 mg/dL Borderline high 150 - 199 mg/dL High 200 - 499 mg/dL Very High > or = 500 mg/dL Performed By: #### L 501.9985, L501.9520, L500.4050, L501.2300, L500.4100, L501.5200, L100.0100 #### [address] [place], [address] Magnesiumon 12-17-2023 Magnesium [Mass/Vol] 2.1 mg/dL Normal 1.6-2.6 Comment on above: Performed By: #### L 501.9985, L501.9520, L500.4050, L501.2300, L500.4100, L501.5200, L100.0100 #### [address] [place], [address] Partial Thromboplast Timeon 12-17-2023 aPTT Coag (Bld) [Time] 78.0 s High 24.1-36.2 Comment on above: Performed By: #### L 501.4020 #### Laboratory [address] [place], [address] Phosphoruson 12-17-2023 Phosphate [Mass/Vol] 4.0 mg/dL Normal 2.5-4.9 Comment on above: Performed By: #### L 501.9985, L501.9520, L500.4050, L501.2300, L500.4100, L501.5200, L100.0100 #### [address] [place], [address] Thyroid Stim Hormone (TSH)on 12-17-2023 TSH 1.500 uIU/mL Normal 0.358-3.740 Comment on above: Performed By: #### L 501.9985, L501.9520, L500.4050, L501.2300, L500.4100, L501.5200, L100.0100 #### [address] [place], [address] 12 Lead EKGon 12-16-2023 12 Lead EKG [facility] Cardiovascular Services [address] [place] [address] 12 Lead EKG 12/16/23 0624 MR#: [id number] Acct: [id number] Name: LOUISE ALLEN Rep #: [id number] : 1965 58 From: Moisés Díaz MD Attending Dr: Dr. Deonte Houser MD Status : ADM IN Ordering Dr: Josh Bullard MD Date: 12/16/23 Location: ICU Sex: F C Admitted: 12/16/23 Test Reason : POST CARDIOVERSION Blood Pressure : */* mmHG Vent. Rate : 81 BPM Atrial Rate : 81 BPM P-R Int : 134 ms QRS Dur : 74 ms QT Int : 386 ms P-R-T Axes : 69 36 48 degrees QTcB Int : 448 ms Normal sinus rhythm Normal ECG Confirmed by BRE JONES, MOISÉS ([id number]), editor news LORI MANN ([id number]) on 12/17/2023 9:46:52 AM Referred By: Confirmed By: MOISÉS DÍAZ MD 12/17/2346 Date Moisés Díaz MD CC: Dr. Fabi Cisneros MD; Dr. Josh Bullard MD; Dr. Deonte Houser MD Signed Normal Basic Metabolic Profile (BMP )on 12-16-2023 BUN/CRE 32.5 RATIO High 10-20 Comment on above: Order Comment: 'TROP ' Serial specimen #1, #2 or #3: 1 Performed By: #### L 501.4020, L500.2500, L100.0100 #### Laboratory [address] [place], [address] CA,Total 9.3 mg/dL Normal 8.5-10.1 Comment on above: Order Comment: 'TROP ' Serial specimen #1, #2 or #3: 1 Performed By: #### L 501.4020, L500.2500, L100.0100 #### Laboratory [address] [place], [address] Chloride [Moles/Vol] 109 mmol/L High 98-107 Comment on above: Order Comment: 'TROP ' Serial specimen #1, #2 or #3: 1 Performed By: #### L 501.4020, L500.2500, L100.0100 #### Laboratory [address] [place], [address] CO2 [Moles/Vol] 24.0 mmol/L Normal 21.0-32.0 Comment on above: Order Comment: 'TROP ' Serial specimen #1, #2 or #3: 1 Performed By: #### L 501.4020, L500.2500, L100.0100 #### Laboratory [address] [place], [address] Creatinine [Mass/Vol] 0.74 mg/dL Normal 0.55-1.02 Comment on above: Order Comment: 'TROP ' Serial specimen #1, #2 or #3: 1 Result Comment: The validity of the calculated GFR GFRAA in patients over 70 years has not been determined. Clinical correlation is essential. Performed By: #### L 501.4020, L500.2500, L100.0100 #### [facility] [address] [place], [address] ECRCL 108.66 ml/min Normal Comment on above: Order Comment: 'TROP ' Serial specimen #1, #2 or #3: 1 Performed By: #### L 501.4020, L500.2500, L100.0100 #### [facility] [address] [place], [address] EST GFR - AA 104 mL/min Normal >60 Comment on above: Order Comment: 'TROP ' Serial specimen #1, #2 or #3: 1 Result Comment: Afri can Macanese GFR Calc Performed By: #### L 501.4020, L500.2500, L100.0100 #### [facility] [address] [place], [address] GAP 6 Normal 5-15 Comment on above: Order Comment: 'TROP ' Serial specimen #1, #2 or #3: 1 Performed By: #### L 501.4020, L500.2500, L100.0100 #### [facility] [address] [place], [address] GFR/1.73 sq M.predicted among non-blacks MDRD (S/P/Bld) [Vol rate/Area] 86 mL/min/{1.73_m2} Normal >60 Comment on above: Order Comment: 'TROP ' Serial specimen #1, #2 or #3: 1 Result Comment: Non- GFR Calc Performed By: #### L 501.4020, L500.2500, L100.0100 #### [facility] [address] [place], [address] Glucose [Mass/Vol] 120 mg/dL High 74-106 [facility] Comment on above: Order Comment: 'TROP ' Serial specimen #1, #2 or #3: 1 Result Comment: Fast ing Glucose result from 100 to 125 mg/dL suggests IMPAIRED HOMEOSTASIS per A.D.A. criteria. Performed By: #### L 501.4020, L500.2500, L100.0100 #### [facility] [address] [place], [address] Potassium [Moles/Vol] 3.8 mmol/L Normal 3.5-5.1 Comment on above: Order Comment: 'TROP ' Serial specimen #1, #2 or #3: 1 Performed By: #### L 501.4020, L500.2500, L100.0100 #### [facility] [address] [place], [address] Sodium [Moles/Vol] 139 mmol/L Normal 136-145 [facility] Comment on above: Order Comment: 'TROP ' Serial specimen #1, #2 or #3: 1 Performed By: #### L 501.4020, L500.2500, L100.0100 #### [facility] [address] [place], [address] Urea nitrogen [Mass/Vol] 24 mg/dL High 7-18 Comment on above: Order Comment: 'TROP ' Serial specimen #1, #2 or #3: 1 Performed By: #### L 501.4020, L500.2500, L100.0100 #### [facility] [address] [place], [address] Bedside Glucoseon 12-16-2023 [facility] GLU 91 mg/dL Normal 74-106 Comment on above: Result Comment: BERNARD GEMENT OF PATIENT CARE PER NURSING PROTOCOL Performed By: #### L 501.080 #### Laboratory [address] [place], [address] FINGERSTICK GLU 103 mg/dL Normal 74-106 Comment on above: Result Comment: BERNARD GEMENT OF PATIENT CARE PER NURSING PROTOCOL Performed By: #### L 501.080 #### [id number] [place], [address] CBC W/Diff, Automatedon 11- 0-2023 Absolute Lymph 2.49 X10 3/uL Normal 0.83-4.51 Comment on above: Performed By: #### L [id number] #### Laboratory [address] [place], [address] Absolute Neut 5.0 X10 3/uL Normal 2.0-7.7 Comment on above: Performed By: #### L [id number] #### Laboratory [address] [place], [address] Basophils/100 WBC (Bld) 1.0 % Normal 0-1 Comment on above: Performed By: #### L [id number] #### Laboratory [address] [place], [address] Eosinophils/100 WBC (Bld) 5.5 % High 0-5 Comment on above: Performed By: #### L [id number] #### Laboratory [address] [place], [address] Erythrocyte distribution width (RBC) [Ratio] 12.8 % Normal 11.6-14.6 Comment on above: Performed By: #### L [id number] #### Laboratory [address] [place], [address] Hematocrit (Bld) [Volume fraction] 38.4 % Normal 37-47 Comment on above: Performed By: #### L [id number] #### Laboratory [address] [place], [address] Hemoglobin (Bld) [Mass/Vol] 13.0 g/dL Normal 12.0-15.0 Comment on above: Performed By: #### L 501.4020 #### Laboratory [address] [place], [address] IG% 0.300 Normal 0.0-0.9 Comment on above: Result Comment: IG% - Immature Granulocytes (promyelocytes, myelocytes and metamyelocytes) > 1% indicates that a LEFT SHIFT is Present. Performed By: #### L 501.4020 #### Laboratory [address] [place], [address] Lymphocytes/100 WBC (Bld) 28.4 % Normal 19-41 Comment on above: Performed By: #### L 501.4020 #### Laboratory [address] [place], [address] MCH (RBC) [Entitic mass] 31.0 pg Normal 27.0-32.0 Comment on above: Performed By: #### L [id number] #### Laboratory [address] [place], [address] MCHC (RBC) [Mass/Vol] 33.9 g/dL Normal 32-36 Comment on above: Performed By: #### L [id number] #### Laboratory [address] [place], [address] MCV (RBC) [Entitic vol] 91.4 fL Normal 81-99 Comment on above: Performed By: #### L [id number] #### Laboratory [address] [place], [address] Monocytes/100 WBC (Bld) 7.4 % Normal 0-10 Comment on above: Performed By: #### L 501.4020 #### Laboratory [address] [place], [address] Neutrophils/100 WBC (Bld) 57.4 % Normal 47-70 Comment on above: Performed By: #### L 501.4020 #### Laboratory [address] [place], [address] Nucleated RBC (Bld) [#/Vol] 0 10*3/uL Normal 0-5 Comment on above: Performed By: #### L [id number] #### Laboratory [address] [place], [address] Platelet mean volume (Bld) [Entitic vol] 9.9 fL Normal 6.2-12.0 Comment on above: Performed By: #### L [id number] #### Laboratory [address] [place], [address] Platelets (Bld) [#/Vol] 268 10*3/uL Normal 150-450 Comment on above: Performed By: #### L [id number] #### Laboratory [address] [place], [address] RBC (Bld) [#/Vol] 4.20 10*6/uL Normal 4.2-5.4 [facility] Comment on above: Performed By: #### L 501.4020 #### Laboratory [address] [place], [address] RDW SD 42.3 fl Normal 35.1-43.9 Comment on above: Performed By: #### L [id number] #### Laboratory [address] [place], [address] WBC (Bld) [#/Vol] 8.8 10*3/uL Normal 4.4-11.0 [facility] Comment on above: Performed By: #### L 501.4020 #### Laboratory [address] [place], [address] PLT EST ADEQUATE Normal ADEQ Comment on above: Performed By: #### L 501.4020, L500.2500, L100.0100 #### Laboratory [address] [place], [address] REACTIVE LYMPH 2+ Normal Comment on above: Performed By: #### L 501.4020, L500.2500, L100.0100 #### Laboratory [address] [place], [address] SMEAR COMMENT SCANNED Normal Comment on above: Result Comment: LYMP HOCYTOSIS PRESENT Performed By: #### L 501.4020, L500.2500, L100.0100 #### Laboratory [address] [place], [address] Consultation - Cardiologyon 12-16-2023 Consultation - Cardiology [facility] Medical Records Department [address] [place] [address] Consultation - Cardiology 12/16/23 1259 MR#: [id number] Acct: [id number] Name: LOUISE ALLEN Rep #: [id number] : 1965 58 From: Jones Sultana MD PCP: Dr. Fabi Cisneros MD Status:ADM IN Location: ICU [id number] Assessment Plan Assessment/Plan (1) Chest pain: (2) Essential hypertension: (3) Asthma: QUALIFIERS: Asthma severity: mild Asthma persistence: intermittent Asthma complication type: uncomplicated Qualified Code(s): J45.20 - Mild intermittent asthma, uncomplicated (4) Supraventricular tachycardia: (5) Non-STEMI (non-ST elevated myocardial infarction): PLAN: 58-year-old patient who developed sudden onset of rapid palpitations She has symptoms of lightheadedness. Patient with known history of SVT She was seen and followed at the [facility] with the EP and advised weight loss provide prior to ablation of SVT. 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 TAMMI and has been on CPAP History of SVT which converted to sinus rhythm She could not tolerated very well beta-mikki in the past I started the patient on calcium channel mikki using Cardizem CD 120 mg Started on heparin. With the plan of evaluating with echocardiogram prior echocardiogram LV function is preserved She is scheduled for cardiac catheterization to assess for CAD. Once stable plan will be to refer her back to the EP to discuss plan of SVT ablation. As she has recurrent episodes of SVT not responding well to medical treatment. Jones Sultana MD,[facility] HPI Consult Data Date of Consult: 12/16/23 HPI Narrative Reason for Consultation: SVT/non-STEMI HPI Narrative: LOUISE ALLEN, is a 58 F who presents [facility] Medical History Cluster B personality disorder MDD (major depressive disorder) Polycystic ovaries Hx of headache Arthritis Smoking greater than 20 pack years Irregular heart beat Pneumonia due to 2019 novel coronavirus TAMMI on CPAP Essential hypertension Tobacco use Morbid obesity HLD (hyperlipidemia) Supraventricular tachycardia Fibromyalgia Type 2 diabetes mellitus Osteoporosis Bronchitis Agoraphobia Depression Asthma Anxiety Home Medications ???Medication ???Instructions ???Recorded ???Last Taken ???Type albuterol sulfate 2.5 mg/3 mL 2.5 mg (3 mL) inhalation Q4H PRN 09/22/21 Unknown Rx (0.083 %) solution for nebulization Sob /Or Wheezing #180 mL albuterol sulfate 90 mcg/actuation 1 - 2 puff inhalation Q4H PRN PRN 09/22/21 Unknown Rx aerosol inhaler Wheezing #8.5 grams multivitamin (Daily Multi-Vitamin 1 tab PO DAILY 08/16/22 Unknown History tablet) metoprolol tartrate 50 mg tablet See Rx Instructions .Route 03/23/23 Unknown Rx .COMPLEX #180 TABLETS trazodone 50 mg tablet 75 mg (1.5 x 50 mg) PO QHS #45 tabs 04/03/23 Unknown Rx duloxetine 60 mg capsule,delayed 60 mg PO BID #180 caps 08/30/23 Unknown Rx release hydroxyzine HCl 25 mg tablet 25 mg PO Q8H PRN anxiety #270 tabs 11/05/23 Unknown Rx lamotrigine 100 mg tablet 100 mg PO QDAY #30 tabs 11/06/23 Unknown Rx semaglutide 1 mg/dose (4 mg/3 mL) 1 mg subcut TH 12/02/23 Unknown History subcutaneous pen injector (Ozempic) tramadol 50 mg tablet 50 mg PO TID PRN PRN pain 12/02/23 Unknown History Allergy/AdvReac Type Severity Reaction Status Date / Time No Known Drug Allergies Allergy Mild Other Verified 12/16/23 05:49 Family History Father Diabetes Colon cancer Cancer Liver Cancer Mother Hypertension Arthritis Mental disorder Diabetes Grandfather Alcoholism Grandfather Alcoholism Grandmother Cancer bone Other Anxiety Osteoporosis Surgical History H/O gastric sleeve H/O colonoscopy with polypectomy History of left knee replacement History of delivery History of tonsillectomy Social History household members: spouse current occupational status: unemployed current occupational exposures/hazards: No pets and animals: Yes history of recent travel: Yes sexually active: No Smoking Status: Former smoker quit date: 02/05/17 pack-years: 30 Electronic Cigarette Use: not used alcohol intake: never substance use type: does not use diet: other caffeine: Yes (cutting back (more content not included)... Normal Consultation - Cardiology [facility] Medical Records Department [address] [place] [address] Consultation - Cardiology 12/16/23 1249 MR#: [id number] Acct: [id number] Name: LOUISE ALLEN Rep #: [id number] : 1965 58 From: Jones Sultana MD PCP: Dr. Fabi Cisneros MD Status:DIS IN Location: ICU [id number] Pt seen evaluated w/MARLENE. I personally interviewed exam the pt. I was involved in all aspects of pt's orders, interpretation of results treatment HPI Consult Data Date of Consult: 12/28/23 HPI Narrative Reason for Consultation: SVT/non-STEMI HPI Narrative: LOUISE ALLEN, is a 58 F who presents [facility] Medical History Cluster B personality disorder MDD (major depressive disorder) Polycystic ovaries Hx of headache Arthritis Smoking greater than 20 pack years Irregular heart beat Pneumonia due to 2019 novel coronavirus TAMMI on CPAP Essential hypertension Tobacco use Morbid obesity HLD (hyperlipidemia) Supraventricular tachycardia Fibromyalgia Type 2 diabetes mellitus Osteoporosis Bronchitis Agoraphobia Depression Asthma Anxiety Home Medications ???Medication ???Instructions ???Recorded ???Last Taken ???Type albuterol sulfate 2.5 mg/3 mL 2.5 mg (3 mL) inhalation Q4H PRN 09/22/21 Unknown Rx (0.083 %) solution for nebulization Sob /Or Wheezing #180 mL albuterol sulfate 90 mcg/actuation 1 - 2 puff inhalation Q4H PRN PRN 09/22/21 Unknown Rx aerosol inhaler Wheezing #8.5 grams multivitamin (Daily Multi-Vitamin 1 tab PO DAILY vitamin 08/16/22 Unknown History tablet) trazodone 50 mg tablet 75 mg (1.5 x 50 mg) PO QHS sleep 04/03/23 Unknown Rx #45 tabs duloxetine 60 mg capsule,delayed 60 mg PO BID mental health #180 08/30/23 12/27/23 Rx release caps hydroxyzine HCl 25 mg tablet 25 mg PO Q8H PRN anxiety #270 tabs 11/05/23 12/27/23 Rx lamotrigine 100 mg tablet 100 mg PO QDAY seizures #30 tabs 11/06/23 12/27/23 Rx semaglutide 1 mg/dose (4 mg/3 mL) 1 mg subcut TH 12/02/23 Unknown History subcutaneous pen injector (Ozempic) tramadol 50 mg tablet 50 mg PO TID PRN PRN pain 12/02/23 Unknown History Allergy/AdvReac Type Severity Reaction Status Date / Time No Known Drug Allergies Allergy Mild Other Verified 12/16/23 05:49 Family History Father Diabetes Colon cancer Cancer Liver Cancer Mother Hypertension Arthritis Mental disorder Diabetes Grandfather Alcoholism Grandfather Alcoholism Grandmother Cancer bone Other Anxiety Osteoporosis Surgical History H/O gastric sleeve H/O colonoscopy with polypectomy History of left knee replacement History of delivery History of tonsillectomy Social History household members: spouse current occupational status: unemployed current occupational exposures/hazards: No pets and animals: Yes history of recent travel: Yes sexually active: No Smoking Status: Former smoker quit date: 02/05/17 pack-years: 30 Electronic Cigarette Use: not used alcohol intake: never substance use type: does not use diet: other caffeine: Yes (cutting back on caffeine) luanne/church: Non-Shinto/Independ ent seatbelt use: always do you feel safe at home: Yes additional social history: [place] - Spouse, Kids - Rakan and joy Risk Stratification Risk Stratification Applicable: No Objective Data Vital Signs: Vital Signs Temp Pulse Resp BP Pulse Ox O2 Del Method 97.3 F L 76 12 102/56 L 98 Room Air 12/16/23 10:30 12/16/23 11:30 12/16/23 11:30 12/16/23 11:30 12/16/23 11:30 12/16/23 11:30 Oxygen Delivery Method [6] Room Air Oxygen Delivery Method [5] Room Air Oxygen Delivery Method [4] Room Air Oxygen Delivery Method [1 ( Room Air Initial Baseline)] Oxygen Delivery Method Room Air Weight: 258 lb 9.6 oz Body Mass Index (BMI) 41.7 Intake Output: Intake and Output for Last 24 Hours 12/14/23 12/15/23 12/16/23 23:59 23:59 23:59 Intake Total 1000 / 1000 Balance 1000 / 1000 Lab / Micro Data 12/17/23 04:48 12/17/23 04:48 Labs: Laboratory Results - last 24 hr 12/16/23 05:55: WBC 13.9 H, RBC 4.76, Hgb 15.0, Hct 43.8, MCV 92.0, MCH 31.5, MCHC 34.2, RDW Std Deviation 43.0, RDW Coeff of Milo 12.8, Plt Count 369, MPV 10.0, Immature Gran % (Auto) 0.400, Neut % (Auto) 43.6 L, Lymph % (Auto) 42.2 H, [place] % (Auto) 7.2, Eos % (Auto) 5.5 H, Baso % (Auto) 1.1 H, Absolute Neuts (auto) 6.1, Absolute Lymphs (auto) 5.88 H, Nucleated RBC % 0, Differential Comment SCANNED, Reactive Lymphocytes 2+, Platelet Estimate ADEQUATE, Sodium 139, Potassium 3.8, Chloride 109 H, Carbon Dioxide 24.0, Anion Gap 6, BUN 24 (more content not included)... Normal Echo Completeon 12-16-2023 Echo Complete [facility] [address] [place] [address] Echo Complete 12/17/23 0909 MR#: [id number] Acct: [id number] Name: LOUISE ALLEN Rep #: [id number] : 1965 58 From: Moisés Díaz MD Attending Dr: Dr. Deonte Houser MD Status : DIS IN Ordering Dr: Cindy Chaidez DO Date: 12/16/23 Location: ICU Sex: F C Admitted: 12/16/23 Reason For Study: Arrhythmia Procedure This was a 2D Doppler, Color Flow transthoracic echocardiogram. Exam performed portable in patient room. Left Ventricle Normal LV size. Left ventricular systolic function is normal. The left ventricular ejection fraction is 65 %. No regional wall motion abnormalities noted. Right Ventricle Normal RV size. Normal systolic function. Atria Normal left atrium. Normal right atrium. Bubble contrast study negative for right to left interatrial shunt. Mitral Valve Normal mitral valve. Tricuspid Valve Normal tricuspid valve. Mild tricuspid valve insufficiency. Pulmonary artery systolic pressure is 20 mmHg. Aortic Valve Trisinus/trileaflet aortic valve. Pulmonic Valve Normal pulmonic valve. Great Vessels Normal aortic root. The pulmonary artery is normal size. Normal inferior vena cava. Pericardium/Pleural No pericardial effusion. MMode/2D Measurements Calculations LVIDd: 4.7 cm IVSd: 1.0 cm LVOT diam: 2.1 cm LVIDs: 3.1 cm LVPWd: 1.1 cm LVOT area: 3.3 cm2 RVDd: 3.1 cm FS: 34.1 % asc Aorta Diam: 3.7 cm LAV(MOD-bp): 80.5 ml LVAd ap4: 32.2 cm2 LAV(MOD-bp) Indexed: 36.2 ml/m2 LVLd ap4: 8.0 cm LAV(MOD-sp2): 78.8 ml EDV(MOD-sp4): 110.3 ml LAV(MOD-sp4): 80.5 ml EDV(sp4-el): 110.1 ml LVAs ap4: 18.4 cm2 LVLs ap4: 6.4 cm ESV(MOD-sp4): 46.0 ml ESV(sp4-el): 45.0 ml EF(MOD-sp4): 58.3 % EF(sp4-el): 59.1 % LVAd ap2: 32.0 cm2 SV(MOD-sp4): 64.3 ml SV(MOD-sp2): 71.7 ml LVLd ap2: 8.3 cm SI(MOD-sp4): 28.9 ml/m2 SI(MOD-sp2): 32.2 ml/m2 EDV(MOD-sp2): 105.5 ml EDV(sp2-el): 104.3 ml LVAs ap2: 16.2 cm2 LVLs ap2: 6.8 cm ESV(MOD-sp2): 33.8 ml ESV(sp2-el): 32.7 ml EF(MOD-sp2): 67.9 % SV(sp4-el): 65.1 ml LA dimension(2D): 4.1 cm LA A4 area: 25.2 cm2 RA A4 area: 16.8 cm2 TAPSE: 2.3 cm Time Measurements MV dec time: 0.23 sec Doppler Measurements Calculations MV E max keron: 85.8 cm/sec Lat Peak E' Keron: 7.1 cm/sec Med Peak E' Keron: 9.2 cm/sec MV A max keron: 91.3 cm/sec E/E' lat: 12.2 E/E' med: 9.3 MV E/A: 0.94 Ao V2 max: 167.5 cm/sec LV V1 max: 114.4 cm/sec MV dec slope: 378.5 cm/sec2 Ao max P.2 mmHg LV V1 max P.2 mmHg Ao V2 mean: 119.3 cm/sec LV V1 mean P.7 mmHg Ao mean P.2 mmHg LV V1 mean: 95.0 cm/sec Ao V2 VTI: 35.8 cm LV V1 VTI: 27.1 cm AV (velocity ratio): 0.76 EMILIE(I,D): 2.5 cm2 EMILIE(V,D): 2.3 cm2 SV(LVOT): 90.8 ml PA V2 max: 97.3 cm/sec TR max keron: 205.5 cm/sec TR max P.9 mmHg ECHO/Echo Complete Interpretation Summary Normal LV size. Left ventricular systolic function is normal. The left ventricular ejection fraction is 65 %. Bubble contrast study negative for right to left interatrial shunt. Pulmonary artery systolic pressure is 20 mmHg. Ordering Physician: Cindy Chaidez Referring Physician: Fabi Cisneros Performed By: Carla Sepulveda RDCS 12/17/23 1738 Date Moisés Díaz MD CC: Dr. Fabi Cisneros MD; Dr. Cindy Chaidez DO; Dr. Deonte Houser MD Date Dictated: 12/17/23908 Date Transcribed: 12/17/231737 Merchandising Execution Associate: Signed Normal Emergency Department Summary on 12-16-2023 Emergency Department Summary [facility] Medical Records Department [address] [place] [address] Emergency Department Summary 12/16/23 MR#: [id number] Acct: [id number] Name: LOUISE ALLEN Rep #: [id number] : 1965 58 From: Josh Bullard MD PCP: Dr. Fabi Cisneros MD Status:REG ER Location: ED HPI History of Present Illness Chief Complaint: Chest Other Informant: patient and spouse/S.O. Narrative Narrative: 58-year-old female sudden onset rapid palpitations around 6 hours ago. She has tried some vagal maneuvers without success. She tried pushing around on her carotid as well. She has felt lightheaded. She felt some chest pressure that started later but that is not really there right now. She has had this happen before, was supposed to get a radiofrequency ablation but states she is supposed to lose weight first. She is on metoprolol. She is been compliant with that. She is taken no mifx-[id number]-[id number] medications recently, stimulants, or illicit substances. [facility] Medical History Cluster B personality disorder MDD (major depressive disorder) Polycystic ovaries Hx of headache Arthritis Smoking greater than 20 pack years Irregular heart beat Pneumonia due to 2019 novel coronavirus TAMMI on CPAP Essential hypertension Tobacco use Morbid obesity HLD (hyperlipidemia) Supraventricular tachycardia Fibromyalgia Type 2 diabetes mellitus Osteoporosis Bronchitis Agoraphobia Depression Asthma Anxiety Home Medications ???Medication ???Instructions ???Recorded ???Last Taken ???Type albuterol sulfate 2.5 mg/3 mL 2.5 mg (3 mL) inhalation Q4H PRN 09/22/21 Unknown Rx (0.083 %) solution for nebulization Sob /Or Wheezing #180 mL albuterol sulfate 90 mcg/actuation 1 - 2 puff inhalation Q4H PRN PRN 09/22/21 Unknown Rx aerosol inhaler Wheezing #8.5 grams multivitamin (Daily Multi-Vitamin 1 tab PO DAILY 08/16/22 Unknown History tablet) metoprolol tartrate 50 mg tablet See Rx Instructions .Route 03/23/23 Unknown Rx .COMPLEX #180 TABLETS trazodone 50 mg tablet 75 mg (1.5 x 50 mg) PO QHS #45 tabs 04/03/23 Unknown Rx duloxetine 60 mg capsule,delayed 60 mg PO BID #180 caps 08/30/23 Unknown Rx release hydroxyzine HCl 25 mg tablet 25 mg PO Q8H PRN anxiety #270 tabs 11/05/23 Unknown Rx lamotrigine 100 mg tablet 100 mg PO QDAY #30 tabs 11/06/23 Unknown Rx semaglutide 1 mg/dose (4 mg/3 mL) 1 mg subcut TH 12/02/23 Unknown History subcutaneous pen injector (Ozempic) tramadol 50 mg tablet 50 mg PO TID PRN PRN pain 12/02/23 Unknown History Allergy/AdvReac Type Severity Reaction Status Date / Time No Known Drug Allergies Allergy Mild Other Verified 12/16/23 05:49 Family History Father Diabetes Colon cancer Cancer Liver Cancer Mother Hypertension Arthritis Mental disorder Diabetes Grandfather Alcoholism Grandfather Alcoholism Grandmother Cancer bone Other Anxiety Osteoporosis Surgical History H/O gastric sleeve H/O colonoscopy with polypectomy History of left knee replacement History of delivery History of tonsillectomy Social History household members: spouse current occupational status: unemployed current occupational exposures/hazards: No pets and animals: Yes history of recent travel: Yes sexually active: No Smoking Status: Former smoker quit date: 02/05/17 pack-years: 30 Electronic Cigarette Use: not used alcohol intake: never substance use type: does not use diet: other caffeine: Yes (cutting back on caffeine) luanne/church: Non-Shinto/Independ ent seatbelt use: always do you feel safe at home: Yes additional social history: [place] - Spouse, Kids - Rakan and joy DANIA ROS ED Constitutional Constitutional ED: Denies chills or fever(s) Eyes Eyes: Denies change in vision or diplopia ENT ENT ED: Denies rhinorrhea or sore throat Cardiovascular Cardiovascular: Reports as per HPI, chest pain, lightheadedness and palpitations; Denies syncope Respiratory/Chest Respiratory/Chest: Denies cough or dyspnea Gastrointestinal Gastrointestinal: Denies abdominal pain, diarrhea, nausea or vomiting Genitourinary Genitourinary ED: Denies dysuria or hematuria Musculoskeletal Musculoskeletal: Denies back pain or neck pain Integumentary Denies abscess or rash Neurologic Neurologic: Denies headache(s), paresthesias or weakness Psychiatric Psychiatric: Denies anxiety or suicidal thoughts EXAM Physical Exam Const Vital Signs: 12/16/23 05:51 12/16/23 05:55 12/16/23 06:11 Temperature 97.8 F Temperature Source Oral Pulse Rate 163 H Puls (more content not included)... Normal H AND P Exam - Hospitaliston 12-16-2023 H&P Exam - Hospitalist [facility] Medical Records Department [address] [place] [id number] H P Exam - Hospitalist 12/16/23 0848 MR#: [id number] Acct: [id number] Name: LOUISE ALLEN Rep #: [id number] : 1965 58 From: Cindy Chaidez DO PCP: Dr. Fabi Cisneros MD Status:ADM IN Location: ICU [id number] HPI - General General Date of Admission: 12/16/23 Date of Service: 12/16/23 Chief Complaint: Chest discomfort/palpitations HPI Narrative LOUISE ALLEN, is a 58 F who presented to the emergency department at early in the morning of 12/16/2019 for complaining of chest discomfort and palpitations. Symptoms started about 6 hours prior to presentation. Patient has a known history of SVT and tried several vagal maneuvers without any success. She also tried carotid artery massage as well without any success. Patient has a known history of SVT which initially was diagnosed back in 2019. She was referred to EP at [facility] and plan is to perform radiofrequency ablation after she had weight loss. Patient states she is down about 150 pounds now and continues to lose weight with the goal of having ablation done. She has had intermittent episodes since that 2019 event. Upon presentation she was immediately noted to be hypotensive with heart rates from 160-170. Patient was cardioverted but remains somewhat hypotensive and troponin was noted to be elevated. Case was discussed with Dr. Sultana who suggested admission. At the time of my evaluation, the patient was asymptomatic and heart rate remained in sinus rhythm. Vital signs on presentation showed a temperature of 97.8, heart rate 163, respiratory rate 18, blood pressure was 60/34 with a pulse ox of 100% on room air. After cardioversion heart rate was 81 with blood pressure 85/65 at the time of admission. CBC was overall unremarkable. Coags are normal. Chemistry panel was overtly unremarkable with slight hyperglycemia showing a blood glucose level 120. Initial troponin was 393 with a subsequent delta troponin at 1158. Initial EKG showed narrow complex tachycardia with a rate of 165 and normal intervals with follow-up EKG showing sinus rhythm, normal axis, normal intervals and ST-T wave changes concerning for acute ischemia. Given her persistent hypotension and risk for SVT she was admitted to the ICU. [facility] Medical History Cluster B personality disorder MDD (major depressive disorder) Polycystic ovaries Hx of headache Arthritis Smoking greater than 20 pack years Irregular heart beat Pneumonia due to 2019 novel coronavirus TAMMI on CPAP Essential hypertension Tobacco use Morbid obesity HLD (hyperlipidemia) Supraventricular tachycardia Fibromyalgia Type 2 diabetes mellitus Osteoporosis Bronchitis Agoraphobia Depression Asthma Anxiety Home Medications ???Medication ???Instructions ???Recorded ???Last Taken ???Type albuterol sulfate 2.5 mg/3 mL 2.5 mg (3 mL) inhalation Q4H PRN 09/22/21 Unknown Rx (0.083 %) solution for nebulization Sob /Or Wheezing #180 mL albuterol sulfate 90 mcg/actuation 1 - 2 puff inhalation Q4H PRN PRN 09/22/21 Unknown Rx aerosol inhaler Wheezing #8.5 grams multivitamin (Daily Multi-Vitamin 1 tab PO DAILY 08/16/22 Unknown History tablet) metoprolol tartrate 50 mg tablet See Rx Instructions .Route 03/23/23 Unknown Rx .COMPLEX #180 TABLETS trazodone 50 mg tablet 75 mg (1.5 x 50 mg) PO QHS #45 tabs 04/03/23 Unknown Rx duloxetine 60 mg capsule,delayed 60 mg PO BID #180 caps 08/30/23 Unknown Rx release hydroxyzine HCl 25 mg tablet 25 mg PO Q8H PRN anxiety #270 tabs 11/05/23 Unknown Rx lamotrigine 100 mg tablet 100 mg PO QDAY #30 tabs 11/06/23 Unknown Rx semaglutide 1 mg/dose (4 mg/3 mL) 1 mg subcut TH 12/02/23 Unknown History subcutaneous pen injector (Ozempic) tramadol 50 mg tablet 50 mg PO TID PRN PRN pain 12/02/23 Unknown History Allergy/AdvReac Type Severity Reaction Status Date / Time No Known Drug Allergies Allergy Mild Other Verified 12/16/23 05:49 Family History Father Diabetes Colon cancer Cancer Liver Cancer Mother Hypertension Arthritis Mental disorder Diabetes Grandfather Alcoholism Grandfather Alcoholism Grandmother Cancer bone Other Anxiety Osteoporosis Surgical History H/O gastric sleeve H/O colonoscopy with polypectomy History of left knee replacement History of delivery History of tonsillectomy Social History household members: spouse current occupational status: unemployed current occupational exposures/hazards: No pets and animals: Yes history of recent travel: Yes s (more content not included)... Normal L501.4020on 12-16-2023 TROPONIN-I HS 1325 pg/mL Invalid Interpretation Code 3.0-54.0 Comment on above: Order Comment: 'TROP ' Serial specimen #1, #2 or #3: 2 Result Comment: Crit ical Result(s) Called at: 11:04:48 12/16/2023 by: Kajal Louise to Cristóbal. Results read back by same. Please Note: New Test Units and Gender Specific Reference Ranges. For more information see Policy Stat Procedure [place] High Sensitivity Troponin (TNIH) and attachments. Performed By: #### L 501.4020 #### Laboratory [address] [place], [address] TROPONIN-I HS 1158 pg/mL Invalid Interpretation Code 3.0-54.0 Comment on above: Order Comment: 'TROP ' Serial specimen #1, #2 or #3: 2 Result Comment: Crit ical Result(s) Called at: 08:36:36 12/16/2023 by: Kajal Louise to Aristides. Results read back by same. Please Note: New Test Units and Gender Specific Reference Ranges. For more information see Policy Stat Procedure [place] High Sensitivity Troponin (TNIH) and attachments. Performed By: #### L 501.4020 #### Laboratory [address] [place], [address] TROPONIN-I HS 393 pg/mL Invalid Interpretation Code 3.0-54.0 Comment on above: Order Comment: 'TROP ' Serial specimen #1, #2 or #3: 1 Result Comment: Crit ical Result(s) Called at: 06:35:18 12/16/2023 by: Kajal Louise to Lesley. Results read back by same. Please Note: New Test Units and Gender Specific Reference Ranges. For more information see Policy Stat Procedure [place] High Sensitivity Troponin (TNIH) and attachments. Performed By: #### L 501.4020, L500.2500, L100.0100 #### Laboratory [address] [place], [address] Partial Thromboplast Timeon 12-16-2023 aPTT Coag (Bld) [Time] 37.9 s High 24.1-36.2 Comment on above: Performed By: #### L 300.4310 #### [id number] [place], [address] aPTT Coag (Bld) [Time] 31.7 s Normal 24.1-36.2 Comment on above: Performed By: #### L 300.4310 #### [id number] [place], [place], [address] Prothrombin Time w/INRon INR Coag (PPP) [Relative time] 1.0 {INR} Normal Comment on above: Performed By: #### L 501.4020 #### Laboratory [address] [place], [place], [address] PT Coag (PPP) [Time] 13.6 s Normal 11.7-14.9 Comment on above: Performed By: #### L 501.4020 #### Laboratory [address] [place], [place], [address] Miscellaneous Lab Procedureo n 2023 MISC LAB TEST Normal Comment on above: Order Comment: MED T [id number] Result Comment: 7645 63 6+OXYCODONE-BUND (ng/mL) DRUG RESULT SCREEN CUTOFF ____ Amphetamines,Urine Negative ng/mL 1000 Amphetamine test includes Amphetamine and Methamphetamine. Barbiturates Negative ng/mL 200 Benzodiazepines Negative ng/mL 200 Cannabinoid Negative ng/mL 20 Cocaine (Metab) Negative ng/mL 300 Opiates Negative ng/mL 300 Opiates test includes Codeine, Morphine, Hydromorphone, Hydrocodone. Oxycodone/Oxymorphone,Urine Negative ng/mL 300 Test includes Oxycodone and Oxymorphone. TESTING PERFORMED AT [facility]. ORIGINAL REPORT ON FILE IN LAB CONTAINS ADDITIONAL TEST SITE INFORMATION. Performed By: #### L 501.4020, L500.2500, L100.0100 #### Laboratory [address] [place], [address] Miscellaneous Lab Procedure 2on 2023 [facility] LAB TEST 2 Normal Comment on above: Order Comment: PHIL [id number] Result Comment: TEST RESULTS LIMITS Tramadol Positive [id number]=819 Tramadol Conf, MS, UR >[address] ng/mL Fylmkk=501 Tramadol detected; this finding can be consistent with use of medications that include Ultram, Topalgic, Tradol, Zydol, or generic formulations. Drugs listed are passenger representative of common sources of the compound detected and are not intended to include all possible sources. Please Note: Drug test results should be interpreted in the context of clinical information. Patient metabolic variables, specific drug chemistry, and specimen characteristics can affect test outcome. Technical consultation is available if a test result is inconsistent with an expected outcome. Email: [email or web address] TESTING PERFORMED AT [facility]. ORIGINAL REPORT ON FILE IN LAB CONTAINS ADDITIONAL TEST SITE INFORMATION. Performed By: #### L 501.4020, L500.2500, L100.0100 #### Laboratory [address] [place], [address] 12 Lead EKGon 12-02-2023 12 Lead EKG [facility] Cardiovascular Services [address] [place] [address] 12 Lead EKG 12/02/23 0231 MR#: [id number] Acct: [id number] Name: LOUISE ALLEN Rep #: [id number] : 1965 57 From: Moisés Díaz MD Attending Dr: Status: DEP ER Ordering Dr: Marco Ramires DO Date: 12/02/23 Location: ED Sex: F C Admitted: Test Reason : SVT/POST SHOCK CARDIOVERSION Blood Pressure : / mmHG Vent. Rate : 080 BPM Atrial Rate : 080 BPM P-R Int : 140 ms QRS Dur : 078 ms QT Int : 376 ms P-R-T Axes : 050 012 046 degrees QTc Int : 433 ms Normal sinus rhythm Nonspecific ST abnormality Abnormal ECG Confirmed by BRE JONES, MOISÉS ([id number]), editor news LORI MANN ([id number]) on 12/03/2023 9:56:50 AM Referred By: KAMINI Confirmed By:MOISÉS DÍAZ MD 12/03/23 0956 Date Moisés Díaz MD CC: Dr. Fabi Cisneros MD; Dr. Marco Ramires DO Signed Normal 12 Lead EKG [facility] Cardiovascular Services [address] [place] [address] 12 Lead EKG 12/02/23 0230 MR#: [id number] Acct: [id number] Name: LOUISE ALLEN Rep #: [id number] : 1965 57 From: Moisés Díaz MD Attending Dr: Status: DEP ER Ordering Dr: Marco Ramires DO Date: 12/02/23 Location: ED Sex: F C Admitted: Test Reason : SVT/POST SHOCK CARDIOVERSION Blood Pressure : */* mmHG Vent. Rate : 96 BPM Atrial Rate : 78 BPM P-R Int : * ms QRS Dur : 80 ms QT Int : 352 ms P-R-T Axes : 98 17 23 degrees QTcB Int : 444 ms Poor data quality, interpretation may be adversely affected Normal sinus rhythm with atrial fibrillaiton Nonspecific ST and T wave abnormality Abnormal ECG When compared with ECG of 02-DEC-2023 01:21, MANUAL COMPARISON REQUIRED, DATA IS UNCONFIRMED Confirmed by MOISÉS DÍAZ MD ([id number]), editor news LORI MANN ([id number]) on 12/07/2023 11:17:27 AM Referred By: KAMINI Confirmed By: MOISÉS DÍAZ MD 12/07/23 1117 Date Moisés Díaz MD CC: Dr. Fabi Cisneros MD; Dr. Marco Ramires DO Signed [facility] 12 Lead EKG [facility] Cardi[facility] Services [address] [place] [address] 12 Lead EKG 12/02/23 0121 MR#: [id number] Acct: [id number] Name: LOUISE ALLEN Rep #: [id number] : 1965 57 From: Moisés Díaz MD Attending Dr: Status: DEP ER Ordering Dr: Marco Ramires DO Date: 12/02/23 Location: ED Sex: F C Admitted: Test Reason : TACHYCARDIA Blood Pressure : / mmHG Vent. Rate : 159 BPM Atrial Rate : 000 BPM P-R Int : 000 ms QRS Dur : 082 ms QT Int : 304 ms P-R-T Axes : 000 007 024 degrees QTc Int : 494 ms Critical Test Result: High HR Supraventricular tachycardia Otherwise normal ECG Confirmed by MOISÉS DÍAZ MD ([id number]), editor news LORI MANN ([id number]) on 12/03/2023 9:56:32 AM Referred By: KAMINI Confirmed By:MOISÉS DÍAZ MD 12/03/23 0956 Date Moisés Díaz MD CC: Dr. Fabi Cisneros MD; Dr. Marco Ramires DO Signed [facility] Basic Metabolic Profile (BMP )on 12-02-2023 BUN/CRE 35.6 RATIO High 10-20 Comment on above: Performed By: #### L 501.4020 #### Laboratory [address] [place], [address] CA,Total 9.2 mg/dL Normal 8.5-10.1 Comment on above: Performed By: #### L 501.4020 #### Laboratory [address] [place], [address] Chloride [Moles/Vol] 110 mmol/L High 98-107 Comment on above: Performed By: #### L 501.4020 #### Laboratory [address] [place], [address] CO2 [Moles/Vol] 25.0 mmol/L Normal 21.0-32.0 Comment on above: Performed By: #### L 501.4020 #### Laboratory [address] [place], [address] Creatinine [Mass/Vol] 0.84 mg/dL Normal 0.55-1.02 Comment on above: Result Comment: The validity of the calculated GFR GFRAA in patients over 70 years has not been determined. Clinical correlation is essential. Performed By: #### L 501.4020 #### Laboratory [address] [place], [address] ECRCL 96.10 ml/min Normal Comment on above: Performed By: #### L 501.4020 #### Laboratory [address] [place], [address] EST GFR - AA 89 mL/min Normal >60 Comment on above: Result Comment: Afri can Macanese GFR Calc Performed By: #### L 501.4020 #### Laboratory [address] [place], [address] GAP 6 Normal 5-15 Comment on above: Performed By: #### L 501.4020 #### Laboratory [address] [place], [address] GFR/1.73 sq M.predicted among non-blacks MDRD (S/P/Bld) [Vol rate/Area] 74 mL/min/{1.73_m2} Normal >60 Comment on above: Result Comment: Non- GFR Calc Performed By: #### L 501.4020 #### Laboratory [address] [place], [address] Glucose [Mass/Vol] 155 mg/dL High 74-106 [facility] Comment on above: Result Comment: Fast ing Glucose result greater than or equal to 126 mg/dL suggests DIABETES MELLITUS per A.D.A. criteria. Performed By: #### L 501.4020 #### Laboratory [address] [place], [address] Potassium [Moles/Vol] 4.0 mmol/L Normal 3.5-5.1 Comment on above: Performed By: #### L 501.4020 #### Laboratory [address] [place], [address] Sodium [Moles/Vol] 141 mmol/L Normal 136-145 [facility] Comment on above: Performed By: #### L 501.4020 #### Laboratory [address] [place], [address] Urea nitrogen [Mass/Vol] 30 mg/dL High 7-18 Comment on above: Performed By: #### L 501.4020 #### Laboratory [address] [place], [address] CBC W/Diff, Automatedon 10-2 REACTIVE LYMPH 3+ Normal Comment on above: Performed By: #### L 501.4020 #### Laboratory [address] [place], [address] SMEAR COMMENT SCANNED Normal Comment on above: Result Comment: LYMP HOCYTOSIS PRESENT Performed By: #### L 501.4020 #### Laboratory [address] [place], [address] Emergency Department Summary on 12-02-2023 Emergency Department Summary [facility] Medical Records Department [address] [place] [address] Emergency Department Summary 12/02/23 MR#: [id number] Acct: [id number] Name: LOUISE ALLEN Rep #: [id number] : 1965 57 From: Marco Cheatham PCP: Dr. Fabi Cisneros MD Status:DEP ER Location: ED HPI History of Present Illness Chief Complaint: Palpitations Informant: patient Narrative Narrative: History of SVTs intermittent racing heart with last 2 weeks. She is on metoprolol. 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 Lightheaded symptoms on arrival. No chest pains. No recent vomiting or diarrhea. Drinks 1 caffeine drink in the morning. Denies energy drinks or recreational drugs. Prior similar symptoms: Yes PFSH PFSH Medical History Cluster B personality disorder MDD (major depressive disorder) Polycystic ovaries Hx of headache Arthritis Smoking greater than 20 pack years Irregular heart beat Pneumonia due to 2019 novel coronavirus TAMMI on CPAP Essential hypertension Tobacco use Morbid obesity HLD (hyperlipidemia) Supraventricular tachycardia Fibromyalgia Type 2 diabetes mellitus Osteoporosis Bronchitis Agoraphobia Depression Asthma Anxiety Home Medications ???Medication ???Instructions ???Recorded ???Last Taken ???Type albuterol sulfate 2.5 mg/3 mL 2.5 mg (3 mL) inhalation Q4H PRN 09/22/21 Unknown Rx (0.083 %) solution for nebulization Sob /Or Wheezing #180 mL albuterol sulfate 90 mcg/actuation 1 - 2 puff inhalation Q4H PRN PRN 09/22/21 Unknown Rx aerosol inhaler Wheezing #8.5 grams multivitamin (Daily Multi-Vitamin 1 tab PO DAILY 08/16/22 Unknown History tablet) metoprolol tartrate 50 mg tablet See Rx Instructions .Route 03/23/23 Unknown Rx .COMPLEX #180 TABLETS trazodone 50 mg tablet 75 mg (1.5 x 50 mg) PO QHS #45 tabs 04/03/23 Unknown Rx duloxetine 60 mg capsule,delayed 60 mg PO BID #180 caps 08/30/23 Unknown Rx release hydroxyzine HCl 25 mg tablet 25 mg PO Q8H PRN anxiety #270 tabs 11/05/23 Unknown Rx lamotrigine 100 mg tablet 100 mg PO QDAY #30 tabs 11/06/23 Unknown Rx semaglutide 1 mg/dose (4 mg/3 mL) 1 mg subcut TH 12/02/23 Unknown History subcutaneous pen injector (Ozempic) tramadol 50 mg tablet 50 mg PO TID PRN PRN pain 12/02/23 Unknown History Allergy/AdvReac Type Severity Reaction Status Date / Time No Known Drug Allergies Allergy Mild Other Verified 12/02/23 01:16 Family History Father Diabetes Colon cancer Cancer Liver Cancer Mother Hypertension Arthritis Mental disorder Diabetes Grandfather Alcoholism Grandfather Alcoholism Grandmother Cancer bone Other Anxiety Osteoporosis Surgical History H/O gastric sleeve H/O colonoscopy with polypectomy History of left knee replacement History of delivery History of tonsillectomy Social History household members: spouse current occupational status: unemployed current occupational exposures/hazards: No pets and animals: Yes history of recent travel: Yes sexually active: No Smoking Status: Former smoker quit date: 02/05/17 pack-years: 30 Electronic Cigarette Use: not used alcohol intake: never substance use type: does not use diet: other caffeine: Yes (cutting back on caffeine) luanne/church: Non-Shinto/Independ ent seatbelt use: always do you feel safe at home: Yes additional social history: [place] - Spouse, Kids - Rakan and joy DANIA ROS ED Constitutional Constitutional ED: Denies chills, fever(s) or sweats Eyes Eyes: Denies change in vision ENT ENT ED: Denies dysphagia or sore throat Cardiovascular Cardiovascular: Reports palpitations and racing heartbeat; Denies chest pain or leg edema Respiratory/Chest Respiratory/Chest: Denies cough, dyspnea or dyspnea on exertion Gastrointestinal Gastrointestinal: Denies abdominal pain, diarrhea, nausea or vomiting Genitourinary Genitourinary ED: Denies dysuria, hematuria or urinary frequency Musculoskeletal Musculoskeletal: Denies back pain, extremity pain or neck pain Integumentary Denies rash or wounds Neurologic Neurologic: Denies headache(s), paresthesias or weakness EXAM Physical Exam Const Vital Signs: 12/02/23 01:16 12/02/23 01:16 12/02/23 02:05 Temperature 98.1 F Temperature Source Oral Pulse Rate 164 H 156 H Pulse Rate [1 (Initial Baseline)] Pulse Rate [2] Pulse Rate [3] Pulse Rate [4] Pulse Rate [5] Pulse Rate [6] Respiratory Rate 16 16 Respiratory Rate [1 (Initial Baseline)] Respiratory Rate [3] Respiratory Rate [4] Respiratory Rate [5] Respiratory Rate (more content not included)... Normal Urinalysis, Completeon 12-01 BACTERIA 1+ /hpf Normal None Seen Comment on above: Order Comment: 'TROP ' Serial specimen #1, #2 or #3: 2 Performed By: #### L 061.4022 #### Laboratory [address] [place], [address] Mucus Ql (Urine sed) 2+ /hpf Normal Comment on above: Order Comment: 'TROP ' Serial specimen #1, #2 or #3: 2 Performed By: #### L 919.4020 #### Laboratory [address] [place], [address] WBC 0-5 SEEN Normal 0-5 Comment on above: Order Comment: 'TROP ' Serial specimen #1, #2 or #3: 2 Performed By: #### L 402.4026 #### Laboratory [address] [place], [address] EPI,SQUAMOUS 0 SEEN Normal 5-10 Comment on above: Order Comment: 'TROP ' Serial specimen #1, #2 or #3: 2 Performed By: #### L 501.4020 #### Laboratory [address] [place], [place], [address] RBC 0 SEEN Normal 0-5 Comment on above: Order Comment: 'TROP ' Serial specimen #1, #2 or #3: 2 Performed By: #### L [id number] #### Laboratory [address] [place], [address] Internal Medicine Office Vis iton 11-28-2023 Internal Medicine Office Visit [facility] [address] [place] [address] [place] [address] OFFICE VISIT Date of Service: 01/10/24 MR#: [id number] Acct: [id number] Name: LOUISE ALLEN Rep #: [id number] : 1965 Provider: Dr. Fabi yadav MD Age/Sex: 57/F Location: [facility] Status: Signed Intake Vital Signs 09/27/23 09:30 01/07/24 14:22 01/10/24 13:22 Height 5 ft 6 in 5 ft 6 in 5 ft 6 in Weight: 267 lb BMI 43.0 BP 126/80 H Blood Pressure Location Lt brachial Position Sitting Respiration 16 Pulse 84 Pulse Source Monitor Temp 97.5 F L Temp Source Temporal Pulse Oximetry (%) 99 Oxygen Delivery Method room air Intake Visit Reasons: FOLLOW UP Chief Complaint: follow up Polisher Balance Screwhead Required: No Accompanied by: Self Is patient in pain?: No Allergies No Known Drug Allergies Allergy (Mild, Verified 01/10/24 13:19) Other Medications ???Medication ???Instructions ???Recorded ???Confirmed ???Type albuterol sulfate 2.5 mg/3 mL 2.5 mg (3 mL) inhalation Q4H PRN 09/22/21 01/10/24 Rx (0.083 %) solution for nebulization Sob /Or Wheezing #180 mL albuterol sulfate 90 mcg/actuation 1 - 2 puff inhalation Q4H PRN PRN 09/22/21 01/10/24 Rx aerosol inhaler Wheezing #8.5 grams multivitamin (Daily Multi-Vitamin 1 tab PO DAILY vitamin 08/16/22 01/10/24 History tablet) trazodone 50 mg tablet 75 mg (1.5 x 50 mg) PO QHS sleep 04/03/23 01/10/24 Rx #45 tabs duloxetine 60 mg capsule,delayed 60 mg PO BID mental health #180 08/30/23 01/10/24 Rx release caps hydroxyzine HCl 25 mg tablet 25 mg PO Q8H PRN anxiety #270 tabs 11/05/23 01/10/24 Rx lamotrigine 100 mg tablet 100 mg PO QDAY seizures #30 tabs 11/06/23 01/10/24 Rx semaglutide 1 mg/dose (4 mg/3 mL) 1 mg subcut TH 12/02/23 01/10/24 History subcutaneous pen injector (Ozempic) tramadol 50 mg tablet 50 mg PO TID PRN PRN pain 12/02/23 01/10/24 History PFSH Medical History (Updated 01/10/24 @ 13:[address] Fabi Cisneros MD) Cluster B personality disorder MDD (major depressive disorder) Polycystic ovaries Hx of headache Arthritis Smoking greater than 20 pack years Irregular heart beat Pneumonia due to 2019 novel coronavirus TAMMI on CPAP Essential hypertension Tobacco use Morbid obesity HLD (hyperlipidemia) Supraventricular tachycardia Fibromyalgia Type 2 diabetes mellitus Osteoporosis Bronchitis Agoraphobia Depression Asthma Anxiety Surgical History (Updated 01/10/24 @ 13:[address] Fabi Cisneros MD) H/O cardiac radiofrequency ablation H/O gastric sleeve H/O colonoscopy with polypectomy History of left knee replacement History of delivery History of tonsillectomy Family History Father Diabetes Colon cancer Cancer Liver Cancer Mother Hypertension Arthritis Mental disorder Diabetes Grandfather Alcoholism Grandfather Alcoholism Grandmother Cancer bone Other Anxiety Osteoporosis Social History (Updated 01/10/24 @ 13:[address] Fabi Cisneros MD) household members: spouse current occupational status: unemployed current occupational exposures/hazards: No pets and animals: Yes history of recent travel: Yes sexually active: No Smoking Status: Former smoker quit date: 02/05/17 pack-years: 30 Electronic Cigarette Use: not used alcohol intake: never substance use type: does not use diet: other caffeine: Yes (cutting back on caffeine) luanne/church: Non-Shinto/Independ ent seatbelt use: always do you feel safe at home: Yes additional social history: [place] - Spouse, Kids - Rakan and joy Female Reproductive History Menstrual Date of menopause: 03/08/23 HPI HPI Chief Complaint: follow up Details: LOUISE ALLEN, is a 57 F who presents to the office today for a follow up. She hasn't been seen in over a year. She is up to date on her routine blood work and would like a mammogram. She does want her flu shot and pneumovax today. She doesn't smoke and does not need refills. She reports she is eating healthy and trying to stay active. She does check her sugars daily and reports they have been well controlled. They have been averaging in the 94 range. She does take ozempic, which is primarily for her weight. She does try to monitor her carbohydrate and sugar intake. She is up to date on her diabetic eye exam and doesn't see podiatry. She has been checking her blood pressure at home occasionally and reports it has been well controlled. She is not currently taking any medications. She does try to monitor her salt intake. The patient has TAMMI. She wears her CPAP every night and benefits from its use. The patient has a history of asthma. She no longer sees pulmonology. She reports she hasn't had any problems recently. She hasn't (more content not included)... Normal Urine Drug Screen ([facility])on 11-27-2023 AMPHETAMINES Negative Normal <1000 ng/mL Comment on above: Order Comment: 'TROP ' Serial specimen #1, #2 or #3: 2 Performed By: #### L 049.9092 #### Laboratory [place], [address] BARBITIURATES Negative Normal < 200 ng/mL Comment on above: Order Comment: 'TROP ' Serial specimen #1, #2 or #3: 2 Performed By: #### L 501.4020 #### Laboratory [address] [place], [address] BENZODIAZIPINE Negative Normal < 200 ng/mL Comment on above: Order Comment: 'TROP ' Serial specimen #1, #2 or #3: 2 Performed By: #### L 501.4020 #### Laboratory [address] [place], [address] COCAINE Negative Normal < 300 ng/mL Comment on above: Order Comment: 'TROP ' Serial specimen #1, #2 or #3: 2 Performed By: #### L 501.4020 #### Laboratory [address] [place], [address] ECSTACY Positive Abnormal < 500 ng/mL Comment on above: Order Comment: 'TROP ' Serial specimen #1, #2 or #3: 2 Performed By: #### L 501.4020 #### Laboratory [address] [place], [address] METHADONE Negative Normal < 300 ng/mL Comment on above: Order Comment: 'TROP ' Serial specimen #1, #2 or #3: 2 Performed By: #### L 501.4020 #### Laboratory [address] [place], [address] OPIATES Negative Normal < 300 ng/mL Comment on above: Order Comment: 'TROP ' Serial specimen #1, #2 or #3: 2 Performed By: #### L 501.4020 #### Laboratory [address] [place], [address] PCP Negative Normal < 25 ng/mL Comment on above: Order Comment: 'TROP ' Serial specimen #1, #2 or #3: 2 Performed By: #### L 501.4020 #### Laboratory [address] [place], [address] THC Negative Normal < 50 ng/mL Comment on above: Order Comment: 'TROP ' Serial specimen #1, #2 or #3: 2 Performed By: #### L 501.4020 #### Laboratory [address] [place], [place], [id number] [facility] UDS PH 4 Normal Comment on above: Order Comment: 'TROP ' Serial specimen #1, #2 or #3: 2 Performed By: #### L 501.4020 #### Laboratory [address] [place], [place], [address] Phone Msgon 11-02-2023 Phone Msg Entered by EMILY PETERS CNP on November 02, 2023 14:03:16 EDT From: EMILY PETERS CNP To: [facility]/pharmacy #[id number] Sent: 11/02/2023 14:03:16 EDT Subject: Medication Management Submitted: Complete:semaglutide (Ozempic 4 mg/3 mL (1 mg dose) subcutaneous solution) Signed by EMILY PETERS CNP 11/02/2023 14:03:00 EDT Approved semaglutide (OZEMPIC 4 MG/3 ML (1 MG/DOSE)) INJECT 1MG SUBCUTANEOUSLY ON SUNDAY FOR 4 WEEKS Qty: 3 unknown unit Days Supply: 30 Refills: 2 Substitutions Allowed Route To Pharmacy - [facility]/pharmacy #[id number] From: [id number] To: EMILY PETERS CNP Sent: October 31, 2023 12:10:10 PM EDT Subject: Medication Management Due: November 01, 2023 11:35:17 AM EDT On Hold Pending Signature Dispensed Drug: semaglutide (Ozempic 4 mg/3 mL (1 mg dose) subcutaneous solution), INJECT 1MG SUBCUTANEOUSLY ON SUNDAY FOR 4 WEEKS Quantity: 3 unknown unit Days Supply: 30 Refills: 2 Substitutions Allowed Notes from Pharmacy: Normal [facility] MR/BMS.BPon 09-27-2023 MR/BMSSteveBP [facility] [address] [facility], [address] [place] [address] OFFICE VISIT Date of Service: 09/27/23 MR#: [id number] Acct: [id number] Name: LOUISE ALLEN Rep #: [id number] : 1965 Provider: Dr. Laureano Pandey se, DO Age/Sex: 57/F Location[place] [facility] [place] Status: Signed Intake Vital Signs 03/21/23 07:29 09/27/23 09:29 09/27/23 09:30 Height 5 ft 6 in 5 ft 6 in 5 ft 6 in BP 130/79 H 117/73 Blood Pressure Location Rt brachial Rt brachial Position Sitting Sitting Pulse 98 84 Pulse Source Monitor Monitor BP Intake Visit Reasons: follow up Polisher Balance Screwhead Required: No Accompanied by: Self Is patient in pain?: No Allergies No Known Drug Allergies Allergy (Mild, Verified 09/27/23 09:34) Other Medications ???Medication ???Instructions ???Recorded ???Confirmed ???Type albuterol sulfate 2.5 mg/3 mL 2.5 mg (3 mL) inhalation Q4H PRN 09/22/21 09/27/23 Rx (0.083 %) solution for nebulization Sob /Or Wheezing #180 mL albuterol sulfate 90 mcg/actuation 1 - 2 puff inhalation Q4H PRN PRN 09/22/21 09/27/23 Rx aerosol inhaler Wheezing #8.5 grams multivitamin (Daily Multi-Vitamin 1 tab PO DAILY 08/16/22 09/27/23 History tablet) semaglutide 0.25 mg or 0.5 mg (2 mg subcut 10/24/22 09/27/23 History mg/3 mL) subcutaneous pen injector (Ozempic) metoprolol tartrate 50 mg tablet See Rx Instructions .Route 03/23/23 09/27/23 Rx .COMPLEX #180 TABLETS trazodone 50 mg tablet 75 mg (1.5 x 50 mg) PO QHS #45 tabs 04/03/23 09/27/23 Rx duloxetine 60 mg capsule,delayed 60 mg PO BID #180 caps 08/30/23 09/27/23 Rx release hydroxyzine HCl 25 mg tablet 25 mg PO Q8H PRN anxiety #270 tabs 09/27/23 09/27/23 Rx lamotrigine 25 mg tablet 25 mg PO ONCE #98 tabs 09/27/23 09/27/23 Rx Current gender identity: female Nurse's Note: Presents to the office today for follow up. PFSH Medical History Cluster B personality disorder MDD (major depressive disorder) Polycystic ovaries Hx of headache Arthritis Smoking greater than 20 pack years Irregular heart beat Pneumonia due to 2019 novel coronavirus TAMMI on CPAP Essential hypertension Tobacco use Morbid obesity HLD (hyperlipidemia) Supraventricular tachycardia Fibromyalgia Type 2 diabetes mellitus Osteoporosis Bronchitis Agoraphobia Depression Asthma Anxiety Surgical History H/O gastric sleeve H/O colonoscopy with polypectomy History of left knee replacement History of delivery History of tonsillectomy Family History Father Diabetes Colon cancer Cancer Liver Cancer Mother Hypertension Arthritis Mental disorder Diabetes Grandfather Alcoholism Grandfather Alcoholism Grandmother Cancer bone Other Anxiety Osteoporosis Social History household members: spouse current occupational status: unemployed current occupational exposures/hazards: No pets and animals: Yes history of recent travel: Yes sexually active: No Smoking Status: Former smoker quit date: 02/05/17 pack-years: 30 Electronic Cigarette Use: not used alcohol intake: never substance use type: does not use diet: other caffeine: Yes (cutting back on caffeine) luanne/church: Non-Shinto/Independ ent seatbelt use: always do you feel safe at home: Yes additional social history: [place] - Spouse, Kids - Rakan and joy Female Reproductive History Menstrual Date of menopause: 03/08/23 HPI History of Present Illness History provided by: patient HPI: Louise Allen is a 57 year old female who presents today for follow up evaluation. Patient reports that she has been interested in getting started on something like lamotrigine. Feels like she is not doing good at all. Has been much less motivated and has been sitting in her chair not doing anything. Recently had a friend pass away and this has been very stressful. Much worse in the past 2 weeks, but again was feeling bad even before this. Had a recent argument with mom and continues to have some family discord with her and sister. Has not talked to mom in months. She is still angry at this point about this situation. Does have some dizzines in the morning when awakening. Sleep has been poor. Getting between 2-8 hours of sleep. Does sometimes forget to wear CPAP. Mood has been very up and down, long standing. Feels like she causes problems wherever she goes. Describes herself as a bad person. Admits to passive suicidal ideation. Denies any intent secondary to her believes. Denies any self harm. Describes having one episode of what is possible VH of seeing kids at a park near her house. Has been discharged from therapy office aft (more content not included)... Normal [facility] Bariatric Physician Prog ress Noteon 09-05-2023 AMB Bariatric Physician Progress Note LOUISE ALLEN :1965 Registration Date:09/05/2023 Chief Complaint NSWL f/u weight gain History of Present Illness Louise is here for 18 month follow-up s/p [...] Duration: 90 Days Refills: 2 Pickup at [facility]/pharmacy #[id number] Unchanged albuterol = Proventil, Ventolin (ProAir HFA [...] as needed for pain Pharmacy Information [id number]: [address], [place] [id number] [phone] Assessment/Plan This Visit Diagnosis 1. Morbid obesity E66.01 Continue taking multivitamins daily. Keep a food log for 4 days in a row, once a month, every month. Weigh and measure your food. Daily calorie intake should be around 3120-8014 a day. Keep protein intake between 60-80 grams a day Keep fluids intake atleast 60 ounces a day. Increase exercise. Minimum goal is 150 minutes a week, working towards 300 minutes a week. Follow-Up 2 months Ordered: AMB Office/Outpt Est Pt Mod MDM / 30 min 12493, 09/05/2023 15:48:00 EDT, Morbid obesity / BMI [...] Est Pt Mod MDM / 30 min 68673, 09/05/2023 15:48:00 EDT, Morbid obesity / BMI [...] headache, fatigu (more content not included)... Normal [facility] Comprehensive Intake - Texto n 09-05-2023 Comprehensive [...] in, 169 cm) Body Mass Index Measured Jamaican : 41.65 kg/m2 BSA Jamaican : 2.36 m2 Sari Payan MA - [...] 14:39 EDT Infection Screening Travel outside of [place] within past 21 days? : No [...] Diagnosis of Depression Sari Payan MA - 09/05/2023 14:39 EDT Falls Risk Assessment Is the patient ambulatory (mobile) : Yes Have you had 2 or more falls in the past year : No Have you had a fall within the past year that has caused an injury : No Patient screen for fall risk : no falls in last year OR 1 fall with no injury in last year Schuyler CARCAMO Sari - 09/05/2023 14:39 EDT Normal [facility] Vitamin B1 Whole Bloodon Vitamin B1 Whole Blood 190 nmol/L High 70-180 [facility] Comment on above: Order Comment: Order ed on Fin# [id number] Result Comment: INTE RPRETIVE INFORMATION: Vitamin B1, Whole Blood This assay measures the concentration of thiamine diphosphate (TDP), the primary active form of vitamin B1. Approximately 90 percent of vitamin B1 present in whole blood is TDP. Thiamine and thiamine monophosphate, which comprise the remaining 10 percent, are not measured. This test was developed and its performance characteristics determined by [facility]. It has not been cleared or approved by the [place] Food and Drug Administration. This test was performed in a CLIA certified laboratory and is intended for clinical purposes. Performed By: [facility] [address] [place] [address] Manager Front: Rodger Drake MD, PhD CLIA Number: [id number] Performed By: #### C [id number] #### [facility] [address] [place] [address] Special Needs Tutor: MD JERAMIE Mai Bariatric Physician Prog ress Noteon 03-07-2023 AMB Bariatric Physician Progress Note LOUISE ALLEN :1965 Registration Date:03/06/2023 Chief Complaint 1 yr [...] & Measurements Systolic Blood Pressure: 140 mmHg (03/06/23::) Diastolic Blood Pressure: 79 mmHg (03/06/23::) Mean Arterial Pressure: 99 mmHg (03/06/23::) BP Site2: Left arm (03/06/23::) Height/Length Measured: 169 cm (03/06/23::) Weight Measured: 130 kg (03/06/23::) Body Mass Index Measured: 45.52 kg/m2 (03/06/23::) Weight Measured - lbs2: 287 lb (03/06/23::) Height/Length Measured - in2: 66.5 in (03/06/23::) Body Mass Index Measured English2: 45.62 kg/m2 (03/06/23::) BSA: 2.47 m2 (03/06/23::) Ht/Wt Measurement Refused by Patient?2: No (03/06/23::) Depression Screening Scores No Depression Screening data available for this encounter. Fall Risk Assessment Is the patient ambulatory (mobile): Yes (03/06/23::) Have you had a fall within the past: No (03/06/23::) Have you had 2 or more falls in the past: No (03/06/23::) General - alert and oriented, no acute [...] Est Pt Low MDM / 20 min 86990, 03/07/2023 11:56:00 EST, History of sleeve gastrectomy / Sleep apnea / Depression / Anxiety 2. Sleep apnea G47.30 Ordered: AMB Office/Outpt Est Pt Low MDM / 20 min 18067, 03/07/2023 11:56:00 EST, History of sleeve gastrectomy / Sleep apnea / Depression / Anxiety 3. Depression F32.A Ordered: AMB Office/Outpt Est Pt Low MDM / 20 min 23566, 03/07/2023 11:56:00 EST, History of sleeve gastrectomy / Sleep apnea / Depression / Anxiety 4. Anxiety F41.9 Ordered: AMB Office/Outpt Est Pt Low MDM / 20 min 43045, 03/07/2023 11:56:00 EST, History of sleeve gastrectomy / Sleep apnea / Depression / Anxiety Orders: CBCND(CBC WITHOUT DIFFERENTIAL), ROUTINE, 03/06/2023 12:08:00 EST, [id number], Dx: History of sleeve gastrectomy / Sleep apnea COMPMETA(CMP), ROUTINE, 03/06/2023 12:08:00 EST, [id number], Dx: History of sleeve gastrectomy / Sleep apnea FOLATE, ROUTINE, 03/06/2023 12:08 (more content not included)... Normal [facility] Phone Msgon 03-07-2023 Phone Msg - From: ROLAN LIN PA-C Sent: 03/07/2023 12:54:20 EST Subject: Lab Results Caller Name: LOUISE ALLEN; Caller Number: H Left VM. Patient lab results WNL except bilirubin (low). Patient to call back with any questions, otherwise, follow up in 6 months. Patient WBC high - based on trends seems normal for her. BUN also elevated - down from lab work in September 2022. Will continue to follow. Normal [facility] CBCNDon 03-06-2023 Erythrocyte distribution width (RBC) [Ratio] 13.9 % Normal 11.5-14.5 [facility] Comment on above: Performed By: #### 1 60460, 154826, 733622, 732334, 625700, 860731, 6818010 #### [facility] [address] [place] [address] Special Needs Tutor: Aung Alexander MD Hematocrit (Bld) [Volume fraction] 42.4 % Normal 36.0-46.0 [facility] Comment on above: Performed By: #### 1 07182, 877527, 744522, 108879, 835511, 832794, 3137137 #### [facility] [address] [place] [address] Special Needs Tutor: Aung Alexander MD Hemoglobin (Bld) [Mass/Vol] 14.2 g/dL Normal 12.0-16.0 [facility] Comment on above: Performed By: #### 1 36857, 107485, 424442, 593322, 178789, 397683, 9067642 #### [facility] [address] [place], [place] [phone] Special Needs Tutor: Aung Alexander MD Instr WBC ND 11.7 Normal [facility] Comment on above: Performed By: #### 1 56519, 086280, 131747, 242599, 888368, 417967, 6967258 #### [facility] [address] [place] [address] Special Needs Tutor: Aung Alexander MD MCH (RBC) [Entitic mass] 30.3 pg Normal 27.0-34.0 [facility] Comment on above: Performed By: #### 1 90099, 840556, 087991, 244477, 152654, 010279, 4668938 #### [facility] [address] [place] [address] Special Needs Tutor: Aung Alexander MD MCHC (RBC) [Mass/Vol] 33.5 g/dL Normal 32.0-37.0 [facility] Comment on above: Performed By: #### 1 87415, 515484, 490140, 884307, 499895, 007046, 6414125 #### [facility] [address] [place] [address] Special Needs Tutor: Aung Alexander MD MCV (RBC) [Entitic vol] 90.3 fL Normal 80.0-100.0 [facility] Comment on above: Performed By: #### 1 72334, 084685, 921252, 292784, 020741, 559734, 3194568 #### [facility] [address] [place] [address] Special Needs Tutor: Aung Alexander MD Platelet 346 x10 Normal 150-450 [facility] Comment on above: Performed By: #### 1 18887, 097550, 197768, 352518, 500328, 008089, 8098074 #### [facility] [address] [place] [address] Special Needs Tutor: Aung Alexander MD Platelet mean volume (Bld) [Entitic vol] 8.8 fL Normal 7.4-10.4 [facility] Comment on above: Performed By: #### 1 38850, 010531, 389028, 608148, 096362, 485136, 3054460 #### [facility] [address] [place] [address] Special Needs Tutor: Aung Alexander MD RBC 4.70 x10 Normal 4.20-5.40 [facility] Comment on above: Result Comment: Note : RBC morphology is normal unless otherwise stated. Evaluation performed only if differential is requested. Performed By: #### 1 11680, 943691, 923722, 055527, 811847, 936044, 8629351 #### [facility] [address] [place] [address] Special Needs Tutor: Aung Alexander MD WBC 11.7 x10 High 4.5-11.0 [facility] Comment on above: Performed By: #### 1 18730, 737394, 673995, 852383, 642131, 521057, 7787330 #### [facility] [address] [place] [address] Special Needs Tutor: Aung Alexander MD COMPMETAon 03-06-2023 Albumin [Mass/Vol] 3.7 g/dL Normal 3.4-5.0 [facility] Comment on above: Order Comment: Order ed on Fin# [id number] Performed By: #### 1 71007, 218346, 849715, 439245, 037212, 743482, 5378160 #### [facility] [address] [place] [address] Special Needs Tutor: Aung Alexander MD Albumin/Globulin [Mass ratio] 1.2 {ratio} Normal [facility] Comment on above: Order Comment: Order ed on Fin# [id number] Performed By: #### 1 84624, 761738, 594204, 601695, 073638, 559085, 6809134 #### [facility] [address] [place], [place] [address] Special Needs Tutor: Aung Alexander MD Alk Phos 94 unit/L Normal 45-117 [facility] Comment on above: Order Comment: Order ed on Fin# [id number] Performed By: #### 1 09925, 086877, 623846, 130569, 418562, 577108, 1943319 #### [facility] [address] [place], [place] [address] Special Needs Tutor: Aung Alexander MD Bilirubin [Mass/Vol] 0.20 mg/dL Low 0.30-1.20 [facility] Comment on above: Order Comment: Order ed on Fin# [id number] Result Comment: Use of this assay is not recommended for patients undergoing treatment with eltrombopag due to the potential for falsely elevated results. Performed By: #### 1 02160, 710172, 619735, 267416, 679424, 261277, 8345638 #### [facility] [address] [place], [place] [address] Special Needs Tutor: Aung Alexander MD Calcium [Mass/Vol] 9.7 mg/dL Normal 8.7-10.4 [facility] Comment on above: Order Comment: Order ed on Fin# [id number] Performed By: #### 1 03571, 288525, 951719, 040644, 293233, 044380, 8069447 #### [facility] [address] [place] [address] Special Needs Tutor: Aung Alexander MD Chloride [Moles/Vol] 105 mmol/L Normal 98-107 [facility] Comment on above: Order Comment: Order ed on Fin# [id number] Performed By: #### 1 17448, 219322, 178696, 909570, 014953, 551728, 8167632 #### [facility] [address] [place], [place] [address] Special Needs Tutor: Aung Alexander MD CO2 [Moles/Vol] 25.0 mmol/L Normal 20.0-31.0 [facility] Comment on above: Order Comment: Order ed on Fin# [id number] Performed By: #### 1 89627, 161498, 857444, 848574, 248289, 785408, 3329390 #### [facility] [address] [place], [place] [address] Special Needs Tutor: Aung Alexander MD Creatinine [Mass/Vol] 0.8 mg/dL Normal 0.5-0.8 [facility] Comment on above: Order Comment: Order ed on Fin# [id number] Performed By: #### 1 48785, 164407, 869766, 238284, 483204, 086786, 2775545 #### [facility] [address] [place], [place] [address] Special Needs Tutor: Aung Alexander MD GFR AA >60 Normal [facility] Comment on above: Order Comment: Order ed on Fin# [id number] Result Comment: Afri can Macanese GFR Calc Medical judgement is necessary to [...] used for drug dosing. Performed By: #### 1 08763, 881905, 791415, 168832, 699970, 571776, 1433703 #### [facility] [address] [place] [address] Special Needs Tutor: Aung Alexander MD Globulin (S) [Mass/Vol] 3.1 g/dL Normal [facility] Comment on above: Order Comment: Order ed on Fin# [id number] Performed By: #### 1 27972, 788698, 347481, 976227, 464028, 807173, 7943501 #### [facility] [address] [place] [address] Special Needs Tutor: Aung Alexander MD Glomerular Filtration Rate >60 Normal [facility] Comment on above: Order Comment: Order ed on Fin# [id number] Result Comment: Non- GFR Calc Medical judgement [...] used for drug dosing. Performed By: #### 1 14930, 296675, 803659, 196116, 114241, 778617, 8703672 #### [facility] [address] [place] [address] Special Needs Tutor: Aung Alexander MD Glucose [Mass/Vol] 92 mg/dL Normal 74-106 [facility] Comment on above: Order Comment: Order ed on Fin# [id number] Performed By: #### 1 99723, 877053, 814658, 614441, 802632, 526103, 8285446 #### [facility] [address] [place] [address] Special Needs Tutor: Aung Alexander MD GOT 19 unit/L Normal 15-37 [facility] Comment on above: Order Comment: Order ed on Fin# [id number] Performed By: #### 1 38208, 561593, 128334, 915593, 283175, 454081, 1089269 #### [facility] [address] [place] [address] Special Needs Tutor: Aung Alexander MD GPT 19 unit/L Normal 10-49 [facility] Comment on above: Order Comment: Order ed on Fin# [id number] Performed By: #### 1 65604, 696754, 141633, 098876, 368262, 344896, 9256185 #### [facility] [address] [place] [address] Special Needs Tutor: Aung Alexander MD Osmolality [Osmolality] 280 mosm/kg Normal 275-295 [facility] Comment on above: Order Comment: Order ed on Fin# [id number] Performed By: #### 1 09651, 940569, 142642, 043672, 023916, 576299, 5381321 #### [facility] [address] [place] [address] Special Needs Tutor: Aung Alexander MD Potassium [Moles/Vol] 4.6 mmol/L Normal 3.5-5.1 [facility] Comment on above: Order Comment: Order ed on Fin# [id number] Performed By: #### 1 92335, 503523, 740020, 835886, 164837, 173352, 0061851 #### [facility] [address] [place] [address] Special Needs Tutor: Aung Alexander MD Protein [Mass/Vol] 6.8 g/dL Normal 5.7-8.2 [facility] Comment on above: Order Comment: Order ed on Fin# [id number] Result Comment: Tota l Protein results may be increased in patients receiving dextran as a blood volume cotton grower Performed By: #### 1 82821, 223389, 172885, 750234, 942305, 370735, 2234871 #### [facility] [address] [place] [address] [id number] Special Needs Tutor: Aung Alexander MD Sodium [Moles/Vol] 138 mmol/L Normal 135-145 [facility] Comment on above: Order Comment: Order ed on Fin# [id number] Performed By: #### 1 93852, 736785, 952250, 326377, 191915, 117217, 3774349 #### [facility] [address] [place] [address] [phone] Special Needs Tutor: Aung Alexander MD Urea nitrogen [Mass/Vol] 25 mg/dL High 9-23 [facility] Comment on above: Order Comment: Order ed on Fin# [id number] Result Comment: - Ve nipuncture should occur prior to N-Acetyl Cysteine (NAC) or Metamizole (Sulpyrine) administration due to the potential for falsely depressed results. - Blood samples from some patients with monoclonal gammopathies may produce falsely elevated results Performed By: #### 1 50923, 026289, 173624, 635229, 185231, 952058, 8376048 #### [facility] [address] [place] [address] [phone] Special Needs Tutor: Aung Alexander MD Urea nitrogen/Creatinin e [Mass ratio] 31.2 mg/mg Normal [facility] Comment on above: Order Comment: Order ed on Fin# [id number] Performed By: #### 1 20924, 960852, 932886, 387106, 042538, 864607, 8659458 #### [facility] [address] [place] [address] Special Needs Tutor: Aung Alexander MD Comprehensive Intake - Baria [...] in, 169 cm) Body Mass Index Measured Jamaican : 45.62 kg/m2 BSA Jamaican : 2.47 m2 [place] Body Weight : 60.531 kg Sari Payan [...] fall with no injury in last year Schuyler CARCAMOSari - 03/06/2023 11:02 EST Normal [facility] FOLATEon 03-06-2023 FOLATE 15.2 ng/mL Normal 5.4-17.5 [facility] Comment on above: Order Comment: Order ed on Fin# [id number] Result Comment: Meth otrexate and leucovorin interfere with folate measurement because these drugs cross-react with folate binding proteins. Performed By: #### 1 80787, 290985, 635160, 378607, 398259, 910198, 1466298 #### [facility] [address] [place] [address] Special Needs Tutor: Aung Alexander MD IRON GROUPon 03-06-2023 Iron [Mass/Vol] 92 ug/dL Normal 50-170 [facility] Comment on above: Order Comment: Order ed on Fin# [id number] Result Comment: Resu lts may be inaccurate if performed within 14 days of IV iron dextran administration. Performed By: #### 1 25708, 131889, 738946, 022476, 979147, 562552, 8232695 #### [facility] [address] [place] [address] [phone] Special Needs Tutor: Aung Alexander MD Saturation 29.8 % Normal 20.0-50.0 [facility] Comment on above: Order Comment: Order ed on Fin# [id number] Performed By: #### 1 61541, 702226, 451951, 901304, 399959, 019722, 3947706 #### [facility] [address] [place] [address] Special Needs Tutor: Aung Alexander MD TIBC 309 ug/ml Normal 250-425 [facility] Comment on above: Order Comment: Order ed on Fin# [id number] Result Comment: Resu lts may be inaccurate if performed within 14 days of IV iron dextran administration. Performed By: #### 1 83234, 408674, 808140, 238594, 827619, 037278, 2355079 #### [facility] [address] [place] [address] Special Needs Tutor: Aung Alexander MD TSHon 03-06-2023 TSH Qn 1.73 m[IU]/L Normal 0.55-4.78 [facility] Comment on above: Order Comment: Order ed on Fin# [id number] Result Comment: - Do not use samples [...] uIU/mL Reference: [email or web address] (11/2022) Performed By: #### 1 80928, 901306, 402083, 188031, 575571, 210186, 6310385 #### [facility] [address] [place] [address] Special Needs Tutor: Aung Alexander MD VIT B12 LEVELon 03-06-2023 Cobalamin (Vitamin B12) [Mass/Vol] 694 pg/mL Normal 211-911 [facility] Comment on above: Order Comment: Order ed on Fin# [id number] Performed By: #### 1 35247, 711035, 575401, 065572, 857335, 939081, 7299764 #### [facility] [address] [place] [address] Special Needs Tutor: Aung Alexander MD VIT D 25 LEVELon 03-06-2023 Vit D 25 34 ng/mL Normal [facility] Comment on above: Order Comment: Order ed on Fin# [id number] Result Comment: Less than 20 ng/mL Deficient 20 ? 30 ng/mL Insufficient 30 ? 100 ng/mL Sufficiency Greater than 100 ng/mL Potential Toxicity Performed By: #### 1 49026, 731485, 653165, 637672, 902266, 655458, 5092273 #### [facility] [address] [place] [id number] Special Needs Tutor: MD Santiago Mai 05-01-2022 [facility] (FAMMAS) LOUISE ALLEN ([id number]) 1965 F Date Time Provider Department 05/01/22 CHARITY BARRERA During your visit today, we recorded [...] Benitez LPN May 01, 2022 11:43 AM Charity Barrera MD 05/01/2022 3:21 PM Signed Patient [...] gel APPLY TO AFFECTED AREA EVERY DAY [id number] - lisinopril (ZESTRIL, PRINIVIL) 20 mg tablet [...] [B37.9] 01/17/2021 Uncontrolled type 2 diabetes mellitus [[id number]] 04/02/2017 Prescriptions ordered this encounter Disp Refills Start End TRADJENTA 5 MG TABLET 90 t* 0 05/01/2022 05/01/2023 Route: ORAL Sig: Take 1 tablet by mouth once daily. Medications Discontinued During This Encounter Prescriptions - SITagliptin (JANUVIA) 100 mg tablet (Discontinued) Take 1 tablet by mouth once daily. Encounter Status:Closed by CHARITY BARRERA on 05/01/22 [facility] Gabriel 01-10-2022 CN Office Visit (UCWSTR ) LOUISE ALLEN ([id number]) 1965 F Date Time Provider Department 01/10/22 10:45 AM JASMIN SANTOYO UCWSKURTIS During your visit today, we recorded the following information about you: Temperature Pulse Respiration Blood pressure 97.9 degrees 106/minute 18/minute 122/80 Weight 173.7 kg Jasmin Santoyo APRN.CNP 01/10/2022 10:48 AM Signed Subjective The history is provided by the patient. No speech language pathologist assistant was used. HPI Louise Allen is a 56 year old female who [...] have confirmed and edited as necessary, the [facility] Review of Systems Constitutional: Positive for malaise/fatigue. [...] normal. Nirmatrelvir/Ritonavir (Paxlovid) Eligibility and Patient Discussion [facility] Formulary Restriction Criteria: Adult outpatients [...] I have (more content not included)... [facility] JASMINE Telephone (ChangelightS) LOUISE ALLEN ([id number]) 1965 F Date Time Provider Department 11/01/21 CHARITY BARRERA [facility] During your visit today, we recorded the [...] gel APPLY TO AFFECTED AREA EVERY DAY [id number] - DULoxetine (CYMBALTA) 30 mg capsule Take [...] [B37.9] 01/17/2021 Uncontrolled type 2 diabetes mellitus [[id number]] 04/02/2017 Prescriptions ordered this encounter Disp Refills [...] Status:Closed by ISABEL JARA on 11/02/21 [facility] Comprehensive metabolic 2000 panelon 10-31-2021 Albumin [Mass/Vol] 4.1 g/dL Normal 3.9-4.9 [facility] Comment on above: Order Comment: Speci men Type: BLOOD SPECIMEN Ordering Facility: [facility] Address: [address] [place] [address] Performed By: #### 2 4323-8 #### [facility] CLIA [id number] [address] [place] [address] [place] ALP [Catalytic activity/Vol] 113 U/L Normal 34-123 [facility] Comment on above: Order Comment: Speci men Type: BLOOD SPECIMEN Ordering Facility: [facility] Address: [address] [place] [address] Performed By: #### 2 4323-8 #### [facility] CLIA [id number] [address] [place] [address] [place] ALT [Catalytic activity/Vol] 32 U/L Normal 7-38 [facility] Comment on above: Order Comment: Speci men Type: BLOOD SPECIMEN Ordering Facility: [facility] Address: [address] [place] [address] Performed By: #### 2 4323-8 #### [facility] CLIA [id number] [address] [place] [address] [place] Anion gap [Moles/Vol] 12 mmol/L Normal 9-18 [facility] Comment on above: Order Comment: Speci men Type: BLOOD SPECIMEN Ordering Facility: [facility] Address: [address] [place] [address] Performed By: #### 2 4323-8 #### [facility] CLIA [id number] [address] [place] [address] [place] AST [Catalytic activity/Vol] 22 U/L Normal 13-35 [facility] Comment on above: Order Comment: Speci men Type: BLOOD SPECIMEN Ordering Facility: [facility] Address: [address] [place] [address] Performed By: #### 2 4323-8 #### [facility] CLIA [id number] [address] [place] [address] [place] Bilirubin [Mass/Vol] 0.2 mg/dL Normal 0.2-1.3 [facility] Comment on above: Order Comment: Speci men Type: BLOOD SPECIMEN Ordering Facility: [facility] Address: [address] [place] [address] Performed By: #### 2 4323-8 #### [facility] CLIA [id number] [address] [place] [address] [place] Calcium [Mass/Vol] 9.6 mg/dL Normal 8.5-10.2 [facility] Comment on above: Order Comment: Speci men Type: BLOOD SPECIMEN Ordering Facility: [facility] Address: [address] [place] [address] Performed By: #### 2 4323-8 #### [facility] CLIA [id number] [address] [place] [address] [place] Chloride [Moles/Vol] 97 mmol/L Normal 97-105 [facility] Comment on above: Order Comment: Speci men Type: BLOOD SPECIMEN Ordering Facility: [facility] Address: [address] [place], [place] [address] Performed By: #### 2 4323-8 #### [facility] CLIA [id number] [address] [place] [address] [place] CO2 [Moles/Vol] 23 mmol/L Normal 22-30 [facility] Comment on above: Order Comment: Speci men Type: BLOOD SPECIMEN Ordering Facility: [facility] Address: [address] [place], [place] [address] [id number] Performed By: #### 2 4323-8 #### [id number] [address] [place] [address] [place] Creatinine [Mass/Vol] 0.73 mg/dL Normal 0.58-0.96 [facility] Comment on above: Order Comment: Ponce men Type: BLOOD SPECIMEN Ordering Facility: [facility] Address: [address] [place] [address] Performed By: #### 2 4323-8 #### [facility] [id number] [address] [place] [address] [place] ESTIMATED GLOMERULAR FILTRATION RATE 97 mL/min/1.73m??? Normal >=60 [facility] Comment on above: Order Comment: Ponce armendariz Type: BLOOD SPECIMEN Ordering Facility: [facility] Address: [address] [place] [address] Result Comment: Rosetta mated Glomerular Filtration Rate [...] GFR. Performed By: #### 2 4323-8 #### [facility] CLIA [id number] [address] [place] [address] [place] Glucose [Mass/Vol] 250 mg/dL High 74-99 [facility] Comment on above: Order Comment: Ponce armendariz Type: BLOOD SPECIMEN Ordering Facility: [facility] Address: [address] [place] [address] Result Comment: The [place] Diabetes Association (ADA) provides guidance for cutoff [...] Standards of Medical Care in Diabetes 2016, [place] Diabetes Association. Diabetes Care. 2016.39(Suppl 1). Performed By: #### 2 4323-8 #### [facility] CLIA [id number] [address] [place] [address] [place] Potassium [Moles/Vol] 4.3 mmol/L Normal 3.7-5.1 [facility] Comment on above: Order Comment: Ponce armendariz Type: BLOOD SPECIMEN Ordering Facility: [facility] Address: [address] [place] [address] Performed By: #### 2 4323-8 #### [facility] [id number] [address] [place] [address] [place] Protein [Mass/Vol] 6.8 g/dL Normal 6.3-8.0 [facility] Comment on above: Order Comment: Ponce armendariz Type: BLOOD SPECIMEN Ordering Facility: [facility] Address: [address] [place] [address] Performed By: #### 2 4323-8 #### [facility] [id number] [address] [place] [address] [place] Sodium [Moles/Vol] 132 mmol/L Low 136-144 [facility] Comment on above: Order Comment: Ponce armendariz Type: BLOOD SPECIMEN Ordering Facility: [facility] Address: [address] [place] [address] Performed By: #### 2 4323-8 #### [facility] CLIA [id number] [address] [place] [address] [place] Urea nitrogen [Mass/Vol] 25 mg/dL High 7-21 [facility] Comment on above: Order Comment: Ponce armendariz Type: BLOOD SPECIMEN Ordering Facility: [facility] Address: [address] [place] [address] Performed By: #### 2 4323-8 #### [facility] CLIA [id number] [address] [place] [address] [place] HbA1c (Bld)on 10-31-2021 Average glucose Estimated from glycated hemoglobin (Bld) [Mass/Vol] 197 mg/dL Normal [facility] Comment on above: Order Comment: Ponce armendariz Type: BLOOD SPECIMEN Ordering Facility: [facility] Address: [address] [place] [address] Result Comment: eAG: (Estimated average glucose) is a calculated value from HgbA1c and is passenger representative of the average blood glucose level in the last 2-3 month period. Performed By: #### 5 5454-3 #### [facility] CLIA [id number] [address] [place] [address] [place] HbA1c (Bld) [Mass fraction] 8.5 % High 4.3-5.6 [facility] Comment on above: Order Comment: Ponce armendariz Type: BLOOD SPECIMEN Ordering Facility: [facility] Address: [address] [place] [address] Result Comment: [place] Diabetes Association guidelines indicate that patients with HgbA1c in the range 5.7-6.4% are at increased risk for development of diabetes, and intervention by lifestyle modification may be beneficial. HgbA1c greater or equal to 6.5% is considered diagnostic of diabetes. Performed By: #### 5 5454-3 #### [facility] CLIA [id number] [address] [place] [address] [place] Lipid 1996 panelon 2 Cholesterol [Mass/Vol] 231 mg/dL High <200 [facility] Comment on above: Order Comment: Ponce armendariz Type: BLOOD SPECIMEN Ordering Facility: [facility] Address: [address] [place], [place] [phone] Result Comment: <200 mg/dL, Desirable 200-239 mg/dL, Borderline high >239 mg/dL, High Performed By: #### 2 4331-1 #### [facility] CLIA [id number] [facility] [address] OF [facility] CLIA [id number] [address] [place] [address] [place] Cholesterol in HDL [Mass/Vol] 45 mg/dL Normal >39 [facility] Comment on above: Order Comment: Speci men Type: BLOOD SPECIMEN Ordering Facility: [facility] Address: [address] [place] [address] Result Comment: 40-5 9 mg/dL, Acceptable >59 mg/dL, High: Negative risk factor for coronary heart disease <40 mg/dL, Low: Positive risk factor for coronary heart disease Performed By: #### 2 4331-1 #### [facility] CLIA [id number] [address] [place] [address] STATES [facility] CLIA [id number] [address] [place] [address] STATES [facility] Cholesterol in LDL [Mass/Vol] 130 mg/dL High <100 [facility] Comment on above: Order Comment: Speci men Type: BLOOD SPECIMEN Ordering Facility: [facility] Address: [address] [place], [place] [phone] Result Comment: <100 mg/dL, Optimal 100-129 mg/dL, Near optimal/above optimal 130-159 mg/dL, Borderline high 160-189 mg/dL, High >189 mg/dL, Very high Secondary prevention optimal LDL Cholesterol levels are recommended to be < 70 mg/dL Performed By: #### 2 4331-1 #### [facility] CLIA [id number] [address] [place] [address] OF [facility] CLIA [id number] [address] [place] [address] [place] Cholesterol in LDL/Cholesterol in HDL [Mass ratio] 2.89 {ratio} High <2.54 [facility] Comment on above: Order Comment: Ponce armendariz Type: BLOOD SPECIMEN Ordering Facility: [facility] Address: [address] [place] [address] Result Comment: Conor vanegas: 1. National Cholesterol Education Program ATP III Guideline At-A-Glance Quick Desk Reference: National Heart, Lung, and Blood [place]. National Institutes of Health. 2001: NIH Publication No. 01-3305. 2. An International Atherosclerosis Society position paper: global recommendations for the management of dyslipidemia: executive summary, Atherosclerosis. 2014: 232(2):410-413. Performed By: #### 2 4331-1 #### [facility] CLIA [id number] [address] [place] [address] [place] [facility] CLIA [id number] [address] [place] [address] [place] Cholesterol in VLDL [Mass/Vol] 56 mg/dL High <30 [facility] Comment on above: Order Comment: Ponce armendariz Type: BLOOD SPECIMEN Ordering Facility: [facility] Address: [address] [place] [address] Performed By: #### 2 4331-1 #### [facility] CLIA [id number] [address] [place] [address] [place] [facility] CLIA [id number] [address] [place] [address] [place] Cholesterol non HDL [Mass/Vol] 186 mg/dL High <130 [facility] Comment on above: Order Comment: Ponce armendariz Type: BLOOD SPECIMEN Ordering Facility: [facility] Address: [address] [place] [address] Result Comment: <130 mg/dL, Optimal 130-159 mg/dL, Near optimal/above optimal 160-189 mg/dL, Borderline high 190-219 mg/dL, High >219 mg/dL, Very high Secondary prevention optimal non HDL Cholesterol levels are recommended to be <100 mg/dL Performed By: #### 2 4331-1 #### [facility] CLIA [id number] [address] [place] [address] CLIA [id number] [address] [place] [address] Cholesterol.total/ Cholesterol in HDL [Mass ratio] 5.13 {ratio} High <5.10 [facility] Comment on above: Order Comment: Speci men Type: BLOOD SPECIMEN Ordering Facility: [facility] Address: [address] [place], [place] [address] Performed By: #### 2 4331-1 #### [facility] CLIA [id number] [address] [place] [address] [place] [facility] [id number] [address] [place] [address] FASTING TIME 12 hrs Normal [facility] Comment on above: Order Comment: Speci men Type: BLOOD SPECIMEN Ordering Facility: [facility] Address: [address] [place] [address] Performed By: #### 2 4331-1 #### [facility] CLIA [id number] [address] [place] [address] [place] [facility] [id number] [address] [place] [address] Triglyceride [Mass/Vol] 278 mg/dL High <150 [facility] Comment on above: Order Comment: Speci men Type: BLOOD SPECIMEN Ordering Facility: [facility] Address: [address] [place] [place] [id number] Result Comment: <150 mg/dL, Normal 150-199 mg/dL, Borderline high 200-499 mg/dL, High >499 mg/dL, Very high Performed By: #### 2 4331-1 #### [facility] CLIA [id number] [address] [address] [place] [facility] CLIA [id number] [address] [place], [place] [address] [place] [address] [place] CNOVon 09-07-2021 CNOV Office Visit (FAMMAS ) LOUISE ALLEN ([id number]) 1965 F Date Time Provider Department 09/07/21 4:50 PM CHARITY BARRERA During your visit today, we recorded the following information about you: Temperature Pulse Respiration Blood pressure 96.8 degrees 80/minute 16/minute 130/90 Weight Height 176.4 kg 1.676 m Charity Barrera MD 09/07/2021 5:05 PM Signed This note was created using [employer]. Subjective Louise Allen is a 55 year old female. HPI Review of Systems Objective BP 130/90 (BP Site: Left Arm, BP Cuff Size: Large Adult) Pulse 80 Temp 36 ?C (96.8 ?F) (Temporal) Resp 16 Ht 167.6 cm (5' 6) Wt (!) 176.4 kg (389 lb) LMP 06/05/2014 SpO2 96% BMI 62.79 kg/m? Physical Exam Assessment and Plan Charity Barrera MD 09/07/2021 5:05 PM Signed This note was created using [employer]. Subjective Louise Allen is a 55 year old female who [...] (Temporal) Resp 16 Ht 167.6 cm (5' 6) Wt (!) 176.4 kg (389 lb) LMP [...] normal. Behavior: Behavior normal. Assessment and Plan Louise was seen today for follow up. 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 Normal [facility] Absolute lymphocyte counton 07-25-2021 Lymphocytes Auto (Unsp spec) [#/Vol] 1.80 10*3/uL 0.83-4.51 Work Phone: Basophil percentageon 2021 Basophils/100 WBC (Bld) 1.4 % 0-1 Work Phone: Bilirubin [Mass/Vol] 0.30 mg/dL 0.20-1.00 Work Phone: Comment on above: For patients on eltr ombopag therapy, use of Dimension [place] TBIL is not recommended. Chloride [Moles/Vol] 102 mmol/L 98-107 Work Phone: Cholesterol [Mass/Vol] 229 mg/dL <200 Work Phone: Comment on above: <200 mg/dL Desirable 200-240 mg/dL Borderline >240 mg/dL High Risk Eosinophils/100 WBC (Bld) 6.6 % 0-5 Work Phone: Glucose [Mass/Vol] 276 mg/dL 74-106 [facility] Work Phone: Comment on above: Glucose result great er than or equal to 200 mg/dLsuggests DIABETES MELLITUS per A.D.A. criteria. Neutrophils (Bld) [#/Vol] 4.2 10*3/uL 2.0-7.7 Work Phone: [phone] Neutrophils/100 WBC (Bld) 57.2 % 47-70 Work Phone: [phone] Potassium [Moles/Vol] 4.2 mmol/L 3.5-5.1 Work Phone: Protein [Mass/Vol] 7.3 g/dL 6.4-8.2 [facility] Work Phone: [phone] Sodium [Moles/Vol] 136 mmol/L 136-145 [facility] Work Phone: Triglyceride [Mass/Vol] 273 mg/dL <199 Work Phone: Comment on above: The drugs N-Acetylcy steine and Metamizole may falsely depress this assay.Serum Triglycerides Reference Interval Normal <150 mg/dL Borderline high 150 - 199 mg/dL High 200 - 499 mg/dL Very High > or = 500 mg/dL WBC (Bld) [#/Vol] 7.3 10*3/uL 4.4-11.0 [facility] Work Phone: Blood erythrocytes count (nu mber/volume)on 07-25-2021 RBC (Bld) [#/Vol] 4.48 10*6/uL 4.2-5.4 [facility] Work Phone: [phone] Blood hemoglobin measurement (mass/volume)on 07-25-2021 Hemoglobin (Bld) [Mass/Vol] 13.6 g/dL 12.0-15.0 Work Phone: Blood lymphocytes/100 leukoc yteson 07-25-2021 Lymphocytes/100 WBC (Bld) 24.8 % 19-41 Work Phone: Blood monocytes/100 leukocyt eson 07-25-2021 Monocytes/100 WBC (Bld) 9.0 % 0-10 Work Phone: Blood platelet mean volumeon 07-25-2021 Platelet mean volume (Bld) [Entitic vol] 10.4 fL 6.2-12.0 Work Phone: Determination of erythrocyte mean corpuscular volume (MCV)on 07-25-2021 MCV (RBC) [Entitic vol] 91.1 fL 81-99 Work Phone: Hematocrit Auto (Bld) [Volum e fraction]on 07-25-2021 Hematocrit (Bld) [Volume fraction] 40.8 % 37-47 Work Phone: [phone] Iron measurement (mass/mass) on 07-25-2021 Iron (Unsp spec) [Mass/Mass] 68 ug/dL 50-170 Work Phone: Laboratory - Chemistry and C hemistry - challengeon 07-25-2021 ALP [Catalytic activity/Vol] 124 U/L 45-117 Work Phone: ALT [Catalytic activity/Vol] 72 U/L 13-56 Work Phone: CO2 [Moles/Vol] 24.0 mmol/L 21.0-32.0 Work Phone: Cobalamin (Vitamin B12) [Mass/Vol] 356 pg/mL 211-911 Work Phone: Globulin (S) [Mass/Vol] 3.9 g/dL 2.2-4.2 Work Phone: Urea nitrogen/Creatinin e [Mass ratio] 19.7 mg/mg 10- Work Phone: [phone] Laboratory - Drug toxicology on 07-25-2021 Amphetamines Ql (U) Negative <1000 ng/mL Work Phone: [phone] Benzodiazepines Ql (U) Negative < 200 ng/mL Work Phone: [phone] Cannabinoids Screen Ql (U) Negative < 50 ng/mL Work Phone: [phone] Cocaine Ql (U) Negative < 300 ng/mL Work Phone: [phone] Opiates Ql (U) Negative < 300 ng/mL Work Phone: [phone] Laboratory - Hematology and Cell countson 07-25-2021 Erythrocyte distribution width (RBC) [Entitic vol] 45.5 fL 35.1-43.9 Work Phone: [phone] Erythrocyte distribution width (RBC) [Ratio] 13.6 % 11.6-14.6 Work Phone: [phone] Immature granulocytes/100 WBC (Bld) 1.000 % 0.0-0.9 Work Phone: [phone] Comment on above: IG% - Immature Granu locytes (promyelocytes, myelocytes and metamyelocytes) > 1% indicates that a LEFT SHIFT is Present. MCH (RBC) [Entitic mass] 30.4 pg 27.0-32.0 Work Phone: [phone] Nucleated RBC/100 WBC (Bld) [Ratio] 0 % 0-5 Work Phone: [phone] MCHC Auto (RBC) [Mass/Vol]on 07-25-2021 MCHC (RBC) [Mass/Vol] 33.3 g/dL 32-36 Work Phone: [phone] Panel Informationon 07-25 Estimated GFR (MDRD) Amer 101 mL/min >60 Work Phone: [phone] Comment on above: GFR Calc Estimated GFR (MDRD) Non-Af Amer 84 mL/min >60 Work Phone: Comment on above: Non- GFR Calc Ethyl Alcohol Level < 3.0 mg/dL Work Phone: Comment on above: The serum:whole bloo d ethanol ratio is approximately 1.14and varies slightly with hematocrit. Medical Alcohol reference interval and critical value innon-tolerant individuals; 50 - 100 Impairment 100 Intoxication 100 - 250 Severe Poisoning 250 - 400 Deep/possible fatal coma MDMA (Ecstasy) Screen Negative < 500 ng/mL Work Phone: Thyroid Stimulating Hormone (TSH) 3.10 uIU/mL 0.358-3.74 Work Phone: [phone] Urine Barbiturates Screen Negative < 200 ng/mL Work Phone: Urine Drug Screen Comment Work Phone: Comment on above: CONFIRMATORY TESTING FOR ALL POSITIVE URINE DRUG SCREENRESULTS WILL ONLY BE SENT OUT UPON PHYSICIAN ORDER. VISTA Urine Drug Screen methods provide only preliminaryanalytical test results. A more specific alternate chemicalmethod must be used in order to obtain a confirmedanalytical result. Gas chromatography/mass spectrometery(GC/MS) is the preferred confirmatory method. Clinicalconsideration and professional judgement should be appliedto any drug of abuse test result, particularly whenpreliminary positive results are used. URINE TCA TESTING MUST BE ORDERED SEPARATELY. USE TESTMNEMONIC: [facility] Urine Methadone Screen Negative < 300 ng/mL Work Phone: Vitamin D 25-Hydroxy 30.6 ng/mL Work Phone: Comment on above: Vitamin D 25(OH) Sta tus Range Deficiency <20 ng/mL (50nmol/L) Insufficiency 20 - 30 ng/mL (50 - 75 nmol/L) Sufficiency 30 - 100 ng/mL (75 - 250 nmol/L) Toxicity >100 ng/mL (>250 nmol/L) Platelets bldon 07-25-2021 Platelets (Bld) [#/Vol] 290 10*3/uL 150-450 Work Phone: Serum or plasma albumin cami urement (mass/volume)on 07-25-2021 Albumin [Mass/Vol] 3.4 g/dL 3.2-5.0 [facility] Work Phone: Serum or plasma albumin/glob ulin mass ratioon 07-25-2021 Albumin/Globulin [Mass ratio] 0.9 {ratio} 0.9-2.4 Work Phone: Serum or plasma calcium cami urement (mass/volume)on 07-25-2021 Calcium [Mass/Vol] 9.1 mg/dL 8.5-10.1 [facility] Work Phone: Serum or plasma cholesterol in HDL measurement (mass/volume)on 07-25-2021 Cholesterol in HDL [Mass/Vol] 48 mg/dL >40 Work Phone: Comment on above: The drugs N-Acetylcy steine and Metamizole may falsely depress this assay. Reference Range HDL <40 mg/dL Low HDL Cholesterol HDL >or= 60 mg/dL High HDL Cholesterol Serum or plasma cholesterol in VLDL measurement (mass/volume)on 07-25-2021 Cholesterol in VLDL [Mass/Vol] 55 mg/dL 5-40 Work Phone: Serum or plasma creatinine m easurement (mass/volume)on 07-25-2021 Creatinine [Mass/Vol] 0.76 mg/dL 0.55-1.02 Work Phone: Comment on above: The validity of the calculated GFR & GFRAA in patients over 70 years has not been determined. Clinical correlation is essential. Serum or plasma ferritin kalpana surement (mass/volume)on 07-25-2021 Ferritin [Mass/Vol] 59 ng/mL 8-252 Work Phone: Serum or plasma low density lipoprotein (LDL) cholesterol measurement (mass/volume)on 07-25-2021 Cholesterol in LDL [Mass/Vol] 126 mg/dL 0-130 Work Phone: [phone] Serum or plasma urea nitroge n measurement (mass/volume)on 07-25-2021 Urea nitrogen [Mass/Vol] 15 mg/dL 7-18 Work Phone: [phone] Thin prep Papanicolaou smear with manual screeningon 07-25-2021 Thin prep Papanicolaou smear with manual screening 42 U/L 15-37 Work Phone: [phone] Thin prep Papanicolaou smear with manual screening 10 5-15 Work Phone: [phone] Urine phencyclidine (PCP) de tectionon 07-25-2021 Phencyclidine Ql (U) Negative < 25 ng/mL Work Phone: [phone] Whole blood hemoglobin A1c/t otal hemoglobin ratio (mass fraction)on 07-25-2021 HbA1c (Bld) [Mass fraction] 9.5 % 3.8-5.6 Work Phone: Comment on above: Normal < 5.7 % Predi abetic 5.7 - 6.4 % Diabetic >or= 6.5 % Please note range changes. Absolute lymphocyte counton 04-23-2021 Lymphocytes Auto (Unsp spec) [#/Vol] 4.82 10*3/uL 0.83-4.51 Work Phone: [phone] Basophil percentageon 2021 Basophils/100 WBC (Bld) 1.2 % 0-1 Work Phone: [phone] Chloride [Moles/Vol] 100 mmol/L 98-107 Work Phone: [phone] Eosinophils/100 WBC (Bld) 10.5 % 0-5 Work Phone: [phone] Glucose [Mass/Vol] 331 mg/dL 74-106 [facility] Work Phone: [phone] Comment on above: Glucose result great er than or equal to 200 mg/dLsuggests DIABETES MELLITUS per A.D.A. criteria. Neutrophils (Bld) [#/Vol] 5.5 10*3/uL 2.0-7.7 Work Phone: Neutrophils/100 WBC (Bld) 43.4 % 47-70 Work Phone: Potassium [Moles/Vol] 3.8 mmol/L 3.5-5.1 Work Phone: Sodium [Moles/Vol] 134 mmol/L 136-145 [facility] Work Phone: WBC (Bld) [#/Vol] 12.6 10*3/uL 4.4-11.0 [facility] Work Phone: Blood erythrocytes count (nu mber/volume)on 04-23-2021 RBC (Bld) [#/Vol] 4.60 10*6/uL 4.2-5.4 [facility] Work Phone: Blood hemoglobin measurement (mass/volume)on 04-23-2021 Hemoglobin (Bld) [Mass/Vol] 14.2 g/dL 12.0-15.0 Work Phone: Blood lymphocytes/100 leukoc yteson 04-23-2021 Lymphocytes/100 WBC (Bld) 38.2 % 19-41 Work Phone: Blood monocytes/100 leukocyt eson 04-23-2021 Monocytes/100 WBC (Bld) 6.0 % 0-10 Work Phone: Blood platelet mean volumeon 04-23-2021 Platelet mean volume (Bld) [Entitic vol] 9.8 fL 6.2-12.0 Work Phone: Determination of erythrocyte mean corpuscular volume (MCV)on 04-23-2021 MCV (RBC) [Entitic vol] 90.4 fL 81-99 Work Phone: Hematocrit Auto (Bld) [Volum e fraction]on 04-23-2021 Hematocrit (Bld) [Volume fraction] 41.6 % 37-47 Work Phone: Laboratory - Chemistry and C hemistry - challengeon 04-23-2021 CO2 [Moles/Vol] 23.0 mmol/L 21.0-32.0 Work Phone: [phone] Urea nitrogen/Creatinin e [Mass ratio] 23.4 mg/mg 10-20 Work Phone: [phone] Laboratory - Hematology and Cell countson 04-23-2021 Erythrocyte distribution width (RBC) [Entitic vol] 45.0 fL 35.1-43.9 Work Phone: [phone] Erythrocyte distribution width (RBC) [Ratio] 13.7 % 11.6-14.6 Work Phone: [phone] Immature granulocytes/100 WBC (Bld) 0.700 % 0.0-0.9 Work Phone: [phone] Comment on above: IG% - Immature Granu locytes (promyelocytes, myelocytes and metamyelocytes) > 1% indicates that a LEFT SHIFT is Present. MCH (RBC) [Entitic mass] 30.9 pg 27.0-32.0 Work Phone: [phone] Nucleated RBC/100 WBC (Bld) [Ratio] 0 % 0-5 Work Phone: [phone] MCHC Auto (RBC) [Mass/Vol]on 04-23-2021 MCHC (RBC) [Mass/Vol] 34.1 g/dL 32-36 Work Phone: No Panel Informationon 04-23 Estimated Creatinine Clearance Calc 66.12 ml/min Work Phone: [phone] Estimated GFR (MDRD) Amer 84 mL/min >60 Work Phone: [phone] Comment on above: GFR Calc Estimated GFR (MDRD) Non-Af Amer 69 mL/min >60 Work Phone: [phone] Comment on above: Non- GFR Calc Troponin I High Sensitivity 7 pg/mL 3.0-54.0 Work Phone: Comment on above: Please Note: New Patricia t Units and Gender Specific Reference Ranges. For more information see Policy Stat Procedure [place] High Sensitivity Troponin (TNIH) and attachments. Platelets bldon 04-23-2021 Platelets (Bld) [#/Vol] 352 10*3/uL 150-450 Work Phone: Serum or plasma calcium cami urement (mass/volume)on 04-23-2021 Calcium [Mass/Vol] 9.6 mg/dL 8.5-10.1 [facility] Work Phone: Serum or plasma creatinine m easurement (mass/volume)on 04-23-2021 Creatinine [Mass/Vol] 0.90 mg/dL 0.55-1.02 Work Phone: Comment on above: The validity of the calculated GFR & GFRAA in patients over 70 years has not been determined. Clinical correlation is essential. Serum or plasma urea nitroge n measurement (mass/volume)on 04-23-2021 Urea nitrogen [Mass/Vol] 21 mg/dL 7-18 Work Phone: Thin prep Papanicolaou smear with manual screeningon 04-23-2021 Thin prep Papanicolaou smear with manual screening 11 5-15 Work Phone: DIGITAL MAMMO SCREENINGon DIGITAL MAMMO SCREENING BILATERAL DIGITAL SCREENING MAMMOGRAM WITH CAD: 07/27/2020 Ordering Physician: Charity Barrera M.D. CLINICAL: Screening. Comparison is made to exams dated: 08/29/2017 mammogram - [facility] and 05/18/2009 mammogram - . There are scattered fibroglandular elements in both [...] must be based upon clinical grounds. Gaviota Campo M.D. ear/penrad:07/27/2020 14:56:57 Technical Documentation Specialist: Lona Solano RTHelio)(Daniel), [facility] letter sent: Mammography Normal BI-RADS: 1 Negative Reported By: GAVIOTA CAMPO M.D. Signed By: GAVIOTA CAMPO M.D. Normal [facility] ENDOSCOPY DC INSTRUCTIONSon 07-19-2020 ENDOSCOPY DC INSTRUCTIONS Discharge Instructions Patient: Louise Allen Patient : 1965 Procedure: Upper GI endoscopy [...] . Rachael Quinones, 07/19/2020 12:12:39 PM Normal [facility] ENDOSCOPY REPORTon ENDOSCOPY REPORT [facility] Endoscopy Patient Name: Louise Allen Procedure Date: 07/19/2020 10:56 AM Date of [...] Record Forms for possible GI photos Normal [facility] GLUCOSE METERon 07-19-2020 Glucose [Mass/Vol] 141 mg/dL High 70-99 [facility] Comment on above: Result Comment: Fast ing GLUCOSE reference range has been updated per (ADA) [place] [employer]'s recommendation. 04/30/2018 Performed By: #### L 600.90117, L600.55649 #### Test performed at: [place] [address] SURGon 07-19-2020 SURG Normal [facility] Comment on above: Result Comment: RUN DATE: 07/20/20 [facility] LAB *LIVE* PAGE 1RUN TIME: 1538 Specimen InquiryRUN USER: [employer] Name: LOUISE ALLEN : 65 Sex:F Attend Dr: Rachael Quinones [facility]#: [id number] Unit#: [id number] Status: REG [facility] Location: G.END Received: 07/19/20 Status: MANUEL Hodan#: [id number]#: [id number] Collected: 07/19/20-[address]: Rachael Quinones MDTISSUES: Abdi FARMER ANTRUM + BODY MICROSCOPIC EXAM: One H&E-stained slide and one Giemsa-stained slide are examined. DIAGNOSIS: ANTRUM AND BODY OF STOMACH, ENDOSCOPIC BIOPSY: - MODERATE REACTIVE GASTRITIS/GASTROPATHY - NO H. PYLORI ORGANISMS ARE IDENTIFIED ON SPECIAL STAIN Signed Signature on File JOY XIONG 07/20/20 1537 [facility] Name: [facility] Hosp Num: [id number] [facility] Age / Sex: 54/F [facility] Physician: Rachael Quinones MD [address] [place] [address] Location: ENDOSCOPY END OF REPORT Performed By: #### P SURG ####Test performed at: [place] [address] H PYLORI ABon 07-04-2020 H PYLORI AB 5.31 Critically abnormal 0.00-0.79 [facility] Comment on above: Result Comment: INFC E Result Units: Index Value Negative <0.80 Equivocal 0.80 - 0.89 Positive >0.89 Performed At: [facility] [address] [id number] Haylee Juárez PhD [id number] Performed By: #### L 750.56150 #### Test performed at: [facility] [id number] [address] [place] [id number] GLYCO HEMOon 07-03-2020 HbA1c (Bld) [Mass fraction] 6.9 % Normal [facility] Comment on above: Result Comment: Lamont novoa Diagnosis HbA1c (%) --------- Diabetic > 6.4 Prediabetes 5.7-6.4 Normal < 5.7 Performed By: #### L 500.58688 #### Test performed at: [place] [address] VIT D 25-OHon 07-03-2020 VIT D 25-OH 11.36 ng/mL Low 30-100 [facility] Comment on above: Result Comment: ADUL TS: Vitamin D Status Range ----- Deficiency <20 ng/mL Insufficiency 20-<30 ng/mL Sufficiency 30-100 ng/mL Toxicity >100 ng/mL ~\R\~\R\~\R\~\R\~\R\~\R\~\R\~\R\~\R\~\R\~\R\~\R\~\R\~\R\~\R\~\R\~ PEDIATRICS: Vitamin D Status Range ----- Deficiency <15 ng/mL Insufficiency 15-<20 ng/mL Sufficiency 20-100 ng/mL Toxicity >100 ng/mL Certified procedure of the [facility] Vitamin D Standardization Certification Program (VDSCP) Performed By: #### L 600.99715, L600.01294 #### Test performed at: [address] [address] B12on 07-02-2020 Cobalamin (Vitamin B12) [Mass/Vol] 366 pg/mL Normal 193-986 [facility] Comment on above: Order Comment: Is pa tient fasting? UNKNOWN Performed By: #### L 600.91209, L600.89452 #### Test performed at: [address] [address] CBC W/DIFFon 07-02-2020 BASO ABS 0.1 K/uL Normal 0.0-0.2 [facility] Comment on above: Performed By: #### L 600.24216, L600.75925 #### Test performed at: [address] [address] Basophils/100 WBC (Bld) 1.5 % Normal [facility] Comment on above: Performed By: #### L 600.26493, L600.60384 #### Test performed at: [address] [address] EOS ABS 0.5 K/uL Normal 0.0-0.5 [facility] Comment on above: Performed By: #### L 600.11646, L600.04455 #### Test performed at: [address] [address] Eosinophils/100 WBC (Bld) 5.4 % Normal [facility] Comment on above: Performed By: #### L 600.53507, L600.86909 #### Test performed at: [address] [address] Erythrocyte distribution width (RBC) [Ratio] 14.2 % Normal 11.5-14.5 [facility] Comment on above: Performed By: #### L 600.25196, L600.94628 #### Test performed at: [address] [address] Hematocrit (Bld) [Volume fraction] 40.5 % Normal 36.0-48.0 [facility] Comment on above: Performed By: #### L 600.92302, L600.13897 #### Test performed at: [place] [address] Hemoglobin (Bld) [Mass/Vol] 13.3 g/dL Normal 12.0-15.0 [facility] Comment on above: Performed By: #### L 600.74017, L600.90187 #### Test performed at: [place] [address] IG % 0.4 % Normal [facility] Comment on above: Performed By: #### L 600.56059, L600.29974 #### Test performed at: [place] [address] IG ABS 0.04 K/uL Normal 0-0.05 [facility] Comment on above: Performed By: #### L 600.78982, L600.24107 #### Test performed at: [address] [place] [address] Lymphocytes (Bld) [#/Vol] 2.4 10*3/uL Normal 1.2-3.5 [facility] Comment on above: Performed By: #### L 600.17388, L600.13032 #### Test performed at: [address] [address] Lymphocytes/100 WBC (Bld) 25.6 % Normal [facility] Comment on above: Performed By: #### L 600.05834, L600.08411 #### Test performed at: [address] [address] MCH (RBC) [Entitic mass] 29.1 pg Normal 25.4-34.6 [facility] Comment on above: Performed By: #### L 600.60678, L600.41019 #### Test performed at: [address] [address] MCHC (RBC) [Mass/Vol] 32.8 g/dL Normal 31.5-36.5 [facility] Comment on above: Performed By: #### L 600.52217, L600.45126 #### Test performed at: [address] [address] MCV (RBC) [Entitic vol] 88.6 fL Normal 79.0-98.0 [facility] Comment on above: Performed By: #### L 600.39147, L600.50595 #### Test performed at: [address] [address] MONO ABS 0.7 K/uL Normal 0.0-1.0 [facility] Comment on above: Performed By: #### L 600.22268, L600.14456 #### Test performed at: [address] [address] Monocytes/100 WBC (Bld) 7.3 % Normal [facility] Comment on above: Performed By: #### L 600.89707, L600.02650 #### Test performed at: [address] [address] NEUTROPHIL ABS 5.6 K/uL Normal 1.4-6.6 [facility] Comment on above: Performed By: #### L 600.81541, L600.24472 #### Test performed at: [address] [address] Neutrophils/100 WBC (Bld) 59.8 % Normal [facility] Comment on above: Performed By: #### L 600.90697, L600.57986 #### Test performed at: [address] [address] NRBC # 0.000 K/uL Normal 0-0.012 [facility] Comment on above: Performed By: #### L 600.17575, L600.23239 #### Test performed at: [address] [address] NRBC % 0.0 /100 WBC Normal 0-0.2 [facility] Comment on above: Performed By: #### L 600.97039, L600.59982 #### Test performed at: [address] [address] Platelet mean volume (Bld) [Entitic vol] 10.7 fL Normal 8.7-12.4 [facility] Comment on above: Performed By: #### L 600.43774, L600.57404 #### Test performed at: [address] [address] Platelets (Bld) [#/Vol] 321 10*3/uL Normal 140-440 [facility] Comment on above: Result Comment: Slide checked for clumps and fibrin. Performed By: #### L 600.77926, L600.20311 #### Test performed at: [address] [address] RBC (Bld) [#/Vol] 4.57 10*6/uL Normal 3.5-5.5 [facility] Comment on above: Performed By: #### L 600.36201, L600.60701 #### Test performed at: [address] [address] WBC (Bld) [#/Vol] 9.4 10*3/uL Normal 3.9-11.0 [facility] Comment on above: Performed By: #### L 600.16233, L600.39069 #### Test performed at: [address] [address] COMP META PANELon 07-02-2020 Albumin [Mass/Vol] 3.7 g/dL Normal 3.4-5.0 [facility] Comment on above: Order Comment: Is pa tient fasting? UNKNOWN Performed By: #### L 500.37758, L500.17880, L500.43493, L500.57136, L500.32384, L500.62536 #### Test performed at: [address] [address] ALK PHOS TOTAL 88 U/L Normal 45-117 [facility] Comment on above: Order Comment: Is pa tient fasting? UNKNOWN Performed By: #### L 500.59063, L500.25894, L500.56849, L500.02383, L500.67537, L500.83543 #### Test performed at: [address] [address] ALT [Catalytic activity/Vol] 48 U/L Normal 13-61 [facility] Comment on above: Order Comment: Is pa tient fasting? UNKNOWN Performed By: #### L 500.82844, L500.82996, L500.90429, L500.13200, L500.27709, L500.04800 #### Test performed at: [place] [address] [place] [address] AST [Catalytic activity/Vol] 28 U/L Normal 15-37 [facility] Comment on above: Order Comment: Is pa tient fasting? UNKNOWN Performed By: #### L 500.11489, L500.10443, L500.72758, L500.10281, L500.61716, L500.38311 #### Test performed at: [place] [address] [place] [address] BILI TOTAL 0.3 mg/dL Normal 0.2-1.0 [facility] Comment on above: Order Comment: Is pa tient fasting? UNKNOWN Performed By: #### L 500.50447, L500.86066, L500.07550, L500.52950, L500.08665, L500.86059 #### Test performed at: [place] [address] [place] [address] Calcium [Mass/Vol] 9.3 mg/dL Normal 8.5-10.1 [facility] Comment on above: Order Comment: Is pa tient fasting? UNKNOWN Performed By: #### L 500.31879, L500.49387, L500.88980, L500.86284, L500.60761, L500.51223 #### Test performed at: [place] [address] [place] [address] Chloride [Moles/Vol] 101 mmol/L Normal 98-107 [facility] Comment on above: Order Comment: Is pa tient fasting? UNKNOWN Performed By: #### L 500.17892, L500.58319, L500.05397, L500.71229, L500.53625, L500.54626 #### Test performed at: [place] [address] [place] [address] CO2 [Moles/Vol] 24 mmol/L Normal 21-32 [facility] Comment on above: Order Comment: Is pa tient fasting? UNKNOWN Performed By: #### L 500.16763, L500.84724, L500.56832, L500.69840, L500.79393, L500.29928 #### Test performed at: [address] [address] Creatinine [Mass/Vol] 0.843 mg/dL Normal 0.550-1.020 [facility] Comment on above: Order Comment: Is pa tient fasting? UNKNOWN Performed By: #### L 500.91513, L500.45650, L500.32506, L500.22581, L500.59457, L500.98186 #### Test performed at: [address] [address] Glucose [Mass/Vol] 118 mg/dL High 70-99 [facility] Comment on above: Order Comment: Is pa tient fasting? UNKNOWN Result Comment: Fast ing GLUCOSE reference range has been updated per (ADA) [place] [employer]'s recommendation. 04/30/2018 Performed By: #### L 500.72966, L500.23999, L500.41269, L500.82013, L500.42599, L500.60991 #### Test performed at: [address] [address] Potassium [Moles/Vol] 4.1 mmol/L Normal 3.5-5.1 [facility] Comment on above: Order Comment: Is pa tient fasting? UNKNOWN Performed By: #### L 500.53847, L500.78420, L500.49696, L500.12849, L500.72674, L500.06363 #### Test performed at: [address] [address] Protein [Mass/Vol] 7.2 g/dL Normal 6.4-8.2 [facility] Comment on above: Order Comment: Is pa tient fasting? UNKNOWN Performed By: #### L 500.90749, L500.35725, L500.47256, L500.97726, L500.60560, L500.63152 #### Test performed at: [address] [address] Sodium [Moles/Vol] 134 mmol/L Low 136-145 [facility] Comment on above: Order Comment: Is pa tient fasting? UNKNOWN Performed By: #### L 500.87843, L500.66751, L500.81628, L500.57780, L500.81123, L500.35423 #### Test performed at: [address] [address] Urea nitrogen [Mass/Vol] 15 mg/dL Normal 7-18 [facility] Comment on above: Order Comment: Is pa tient fasting? UNKNOWN Performed By: #### L 500.84797, L500.24075, L500.78122, L500.27514, L500.51406, L500.57659 #### Test performed at: [address] [address] GFR ESTIMATEon 07-02-2020 IF AMER > 60 Normal > 60 [facility] Comment on above: Order Comment: Is [...] for clinical interpretation. Performed By: #### L 500.83490, L500.55253, L500.86973, L500.53954, L500.48389, L500.35974 #### Test performed at: [address] [address] IF non-AFR AMER > 60 Normal > 60 [facility] Comment on above: Order Comment: Is pa tient fasting? UNKNOWN Performed By: #### L 500.91067, L500.99254, L500.82718, L500.96937, L500.89824, L500.03644 #### Test performed at: [address] [address] IRON PROF W/FERon 07-02-2020 FERR 26.4 ng/mL Normal 8-252 [facility] Comment on above: Order Comment: Is pa tient fasting? UNKNOWN Performed By: #### L 600.34482, L600.60042 #### Test performed at: [address] [address] Iron [Mass/Vol] 82 ug/dL Normal 50-170 [facility] Comment on above: Order Comment: Is pa tient fasting? UNKNOWN Performed By: #### L 600.24923, L600.59937 #### Test performed at: [address] [address] IRON SAT 20 % Low 25-35 [facility] Comment on above: Order Comment: Is pa tient fasting? UNKNOWN Performed By: #### L 600.16320, L600.21945 #### Test performed at: [address] [address] TIBC 404 ug/dL Normal 250-450 [facility] Comment on above: Order Comment: Is pa tient fasting? UNKNOWN Performed By: #### L 600.42159, L600.01206 #### Test performed at: [address] [address] LIMIT UR TOXon 07-02-2020 UR AMPH Negative Normal Negative [facility] Comment on above: Result Comment: CUTO UB=2637 Performed By: #### L 600.28502, L600.59027 #### Test performed at: [address] [address] UR SANDI Negative Normal Negative [facility] Comment on above: Result Comment: CUTO IE=727 Performed By: #### L 600.86399, L600.75718 #### Test performed at: [address] [address] UR TOSHA Negative Normal Negative [facility] Comment on above: Result Comment: CUTO JU=008 Performed By: #### L 600.48592, L600.99081 #### Test performed at: [place] [address] UR BUPREN/NORBU Negative Normal Negative [facility] Comment on above: Result Comment: CUTO FF=10 Performed By: #### L 600.66656, L600.69818 #### Test performed at: [address] [address] UR ZIYAD/THC Negative Normal Negative [facility] Comment on above: Result Comment: CUTO FF=50 Performed By: #### L 600.38081, L600.66483 #### Test performed at: [address] [address] UR DAVID Negative Normal Negative [facility] Comment on above: Result Comment: CUTO XV=645 Performed By: #### L 600.46574, L600.56229 #### Test performed at: [address] [address] UR ECSTASY Negative Normal Negative [facility] Comment on above: Result Comment: CUTO SC=260 Performed By: #### L 600.71562, L600.40923 #### Test performed at: [place] [address] UR FENTANYL Negative Normal Negative [facility] Comment on above: Result Comment: CUTO OK=0616 Performed By: #### L 600.05518, L600.10297 #### Test performed at: [address] [address] UR METH Negative Normal Negative [facility] Comment on above: Result Comment: CUTO LA=253 Performed By: #### L 600.90764, L600.30542 #### Test performed at: [place] [address] UR OPIAT Negative Normal Negative [facility] Comment on above: Result Comment: CUTO EV=870 Performed By: #### L 600.75993, L600.31058 #### Test performed at: [place] [address] UR OXYCODONE Negative Normal Negative [facility] Comment on above: Result Comment: CUTO OB=246 Performed By: #### L 600.66484, L600.50641 #### Test performed at: [place] [address] UR PCP Negative Normal Negative [facility] Comment on above: Result Comment: CUTO FF=25 Performed By: #### L 600.04183, L600.54239 #### Test performed at: [place] [address] PH TOX 6.0 Normal 5.0-8.0 [facility] Comment on above: Performed By: #### L 600.76768, L600.89194 #### Test performed at: [place] [address] TOX COMMENT *PLEASE NOTE: Normal [facility] Comment on above: Result Comment: UNCO NFIRMED Toxicology results. For MEDICAL purposes only. Performed By: #### L 600.12166, L600.80040 #### Test performed at: [place] [address] LIPID PROFILEon 07-02-2020 Cholesterol [Mass/Vol] 232 mg/dL High <200 [facility] Comment on above: Order Comment: Is pa tient fasting? UNKNOWN Result Comment: <200 mg/dL (Desirable) 200-240 mg/dL (Borderline) >240 mg/dL (High Risk) Performed By: #### L 500.79877, L500.39516, L500.03080, L500.40681, L500.90078, L500.92189 #### Test performed at: [address] [address] Cholesterol in HDL [Mass/Vol] 40 mg/dL Normal 40-60 [facility] Comment on above: Order Comment: Is pa tient fasting? UNKNOWN Performed By: #### L 500.38236, L500.75586, L500.72823, L500.38221, L500.08963, L500.00837 #### Test performed at: [address] [address] Cholesterol in LDL [Mass/Vol] 148 mg/dL High 60-130 [facility] Comment on above: Order Comment: Is pa tient fasting? UNKNOWN Result Comment: LDL BORDERLINE NORMAL 130-159 mg/dL Performed By: #### L 500.19243, L500.13886, L500.15182, L500.01728, L500.21347, L500.32267 #### Test performed at: [address] [address] Triglyceride [Mass/Vol] 274 mg/dL High <150 [facility] Comment on above: Order Comment: Is pa tient fasting? UNKNOWN Result Comment: <150 mg/dL (Normal) 150-199 mg/dL (Borderline) 200-499 mg/dL (High) >500 mg/dL (Very High) Performed By: #### L 500.32022, L500.48138, L500.10788, L500.28210, L500.45598, L500.74016 #### Test performed at: [address] [address] TSH ULTRA SENSon 07-02-2020 TSH ULTRA SENS 1.780 uIU/mL Normal 0.358-3.74 [facility] Comment on above: Order Comment: Is pa tient fasting? UNKNOWN Performed By: #### L 600.83634, L600.54589 #### Test performed at: [address] [address] UR ETHANOL QTon 07-02-2020 UR ETHANOL QT < 3.0 Normal <10.0 [facility] Comment on above: Result Comment: UNCO NFIRMED Toxicology results. For MEDICAL purposes only. Performed By: #### L [id number], [id number] #### Test performed at: [place] [address] Final Surgical Pathology Rep [facility] 11-18-2019 Final Surgical Pathology Report . Pathology Reports Accession: Collected Date/Time: Received Date/Time: Pathologist: [id number] 11/14/2019 10:20 EDT 11/17/2019 09:01 EDT AL VALENTIN MD Final Surgical Pathology Report DIAGNOSIS: A) COLON, HEPATIC FLEXURE, POLYPECTOMY - TUBULAR ADENOMA. B) RIGHT AND LEFT COLON, BIOPSIES - NEGATIVE FOR COLITIS. COMMENT: [facility] - [id number] CLINICAL INFORMATION: Procedure: COLONOSCOPY WITH POLYPECTOMY, INJECTION [...] Electronically Signed by Pathology Report verified by [facility] Electronically signed by AL VALENTIN Sign out Date: 11/18/2019 16:30 Performing Lab: [facility], [address] [place] [address] ([place]) Comment on above: Performed By: #### S PFR #### [facility] [address] [place] [address] Vital Signs Date Time Vital Sign Value Performing Clinician Isaías ward 01-10-2022 10:21-0500 Body temperature 97.9 [degF] Jasmin Natanael MILITARY LAWYER.WINDOW TREATMENT INSTALLER Work Phone: [facility] 01-10-2022 10:21-0500 Body weight 173.73 kg Jasmin Natanael MILITARY LAWYER.WINDOW TREATMENT INSTALLER Work Phone: [facility] 01-10-2022 10:21-0500 Diastolic blood pressure 80 mm[Hg] Jasmin Natanael MILITARY LAWYER.WINDOW TREATMENT INSTALLER Work Phone: [facility] 01-10-2022 10:21-0500 Heart rate 106 /min Jasmin Natanael MILITARY LAWYER.WINDOW TREATMENT INSTALLER Work Phone: [facility] 01-10-2022 10:21-0500 Respiratory rate 18 /min Jasmin Natanael MILITARY LAWYER.WINDOW TREATMENT INSTALLER Work Phone: [facility] 01-10-2022 10:21-0500 SaO2% (BldA) [Mass fraction] 98 % Jasmin Natanael MILITARY LAWYER.WINDOW TREATMENT INSTALLER Work Phone: [facility] 01-10-2022 10:21-0500 Systolic blood pressure 122 mm[Hg] Jasmin Natanael MILITARY LAWYER.WINDOW TREATMENT INSTALLER Work Phone: [facility] 09-22-2021 08:41-0400 Body height 167.[address] Charity Barrera Work Phone: Work Phone: 09-22-2021 08:41-0400 Body mass index (BMI) [Ratio] 63.1 kg/m2 Dr. Charity Barrera Work Phone: Work Phone: 09-22-2021 08:41-0400 Body temperature 97.3 [degF] Dr. Charity Barrera Work Phone: Work Phone: 09-22-2021 08:41-0400 Body weight 177.[address] Charity Barrera Work Phone: Work Phone: 09-22-2021 08:41-0400 Diastolic blood pressure 77 mm[Hg] Dr. Charity Barrera Work Phone: Work Phone: 09-22-2021 08:41-0400 Heart rate 73 /min Dr. Charity Barrera Work Phone: Work Phone: 09-22-2021 08:41-0400 Respiratory rate 16 /min Dr. Charity Barrera Work Phone: Work Phone: 09-22-2021 08:41-0400 SaO2% (BldA) [Mass fraction] 97 % Dr. Charity Barrera Work Phone: Work Phone: 09-22-2021 08:41-0400 Systolic blood pressure 113 mm[Hg] Dr. Charity Barrera Work Phone: Work Phone: 09-07-2021 15:40-0400 Body height 167.6 cm Charity Barrera MD Work Phone: [facility] 09-07-2021 15:40-0400 Body temperature 96.8 [degF] Charity Barrera MD Work Phone: [facility] 09-07-2021 15:40-0400 Body weight 176.45 kg Charity Barrera MD Work Phone: [facility] 09-07-2021 15:40-0400 Diastolic blood pressure 90 mm[Hg] Charity Barrera MD Work Phone: [facility] 09-07-2021 15:40-0400 Heart rate 80 /min Charity Barrera MD Work Phone: [facility] 09-07-2021 15:40-0400 Respiratory rate 16 /min Charity Barrera MD Work Phone: [facility] 09-07-2021 15:40-0400 SaO2% (BldA) [Mass fraction] 96 % Charity Barrera MD Work Phone: [facility] 09-07-2021 15:40-0400 Systolic blood pressure 130 mm[Hg] Charity Barrera MD Work Phone: [facility] 07-25-2021 08:34-0400 Body height 168.28 cm [facility] Work Phone: 07-25-2021 08:34-0400 Body mass index (BMI) [Ratio] 62.8 kg/m2 [facility] Work Phone: 07-25-2021 08:34-0400 Body weight 177.8 kg [facility] Work Phone: 07-25-2021 08:34-0400 Diastolic blood pressure 85 mm[Hg] [facility] Work Phone: 07-25-2021 08:34-0400 Heart rate 80 /min [facility] Work Phone: 07-25-2021 08:34-0400 Respiratory rate 22 /min [facility] Work Phone: 07-25-2021 08:34-0400 SaO2% (BldA) [Mass fraction] 94 % [facility] Work Phone: 07-25-2021 08:34-0400 Systolic blood pressure 132 mm[Hg] [facility] Work Phone: 05-17-2021 13:32-0400 Body mass index (BMI) [Ratio] 61 kg/m2 [facility] Work Phone: 05-17-2021 13:32-0400 Body temperature 95.1 [degF] [facility] Work Phone: 05-17-2021 13:32-0400 Body weight 172.9 kg [facility] Work Phone: 05-17-2021 13:32-0400 Diastolic blood pressure 70 mm[Hg] [facility] Work Phone: 05-17-2021 13:32-0400 Heart rate 90 /min [facility] Work Phone: 05-17-2021 13:32-0400 Respiratory rate 16 /min [facility] Work Phone: 05-17-2021 13:32-0400 SaO2% (BldA) [Mass fraction] 98 % [facility] Work Phone: 05-17-2021 13:32-0400 Systolic blood pressure 106 mm[Hg] [facility] Work Phone: 04-23-2021 14:11-0400 Diastolic blood pressure 56 mm[Hg] [facility] Work Phone: 04-23-2021 14:11-0400 Heart rate 96 /min [facility] Work Phone: 04-23-2021 14:11-0400 Respiratory rate 18 /min [facility] Work Phone: 04-23-2021 14:11-0400 SaO2% (BldA) [Mass fraction] 95 % [facility] Work Phone: 04-23-2021 14:11-0400 Systolic blood pressure 118 mm[Hg] [facility] Work Phone: 04-23-2021 12:08-0400 Body mass index (BMI) [Ratio] 61.9 kg/m2 [facility] Work Phone: 04-23-2021 12:08-0400 Body temperature 97.6 [degF] [facility] Work Phone: 04-23-2021 12:08-0400 Body weight 174.2 kg [facility] Work Phone: Encounters Encounter Date Encounter Type Care Provider Facility Start: 07-23-2024 ambulatory Laureano L Seese [facility] Start: 07-21-2024 End: 07-21-2024 ambulatory Fabi Amelia Facility: Start: 04-22-2024 End: 04-22-2024 ambulatory Fabi Amelia Facility:[facility] Start: 03-04-2024 ambulatory Fabi [place] Facility :[facility] Start: 01-11-2024 End: 01-11-2024 ambulatory Fabi [place] Facility:[facility] Start: 01-10-2024 End: 01-10-2024 ambulatory Fabi Amelia Facility:[facility] Start: 01-07-2024 End: 01-07-2024 ambulatory Laureano L Seese Facility:[facility] Start: 12-28-2023 End: 12-28-2023 ambulatory Fabi [place] Facility:[facility] Start: 12-27-2023 End: 12-28-2023 ambulatory Moisés Bre Facility: Start: 12-19-2023 End: 12-19-2023 ambulatory EMILY PETERS WINDOW TREATMENT INSTALLER Facility:[facility] Start: 12-16-[address] [facility] Start: 12-16-2023 End: 12-17-2023 Evaluation and management of inpatient [facility] Facility: Start: 12-02-2023 End: 12-02-2023 Emergency department patient visit Marco Ramires Facility: Start: 11-27-2023 End: 11-27-2023 ambulatory Chayo Moreli Facility: Start: 09-27-2023 End: 09-27-2023 ambulatory Laureano Min Facility:[facility] Start: 09-05-2023 End: 09-05-2023 ambulatory EMILY LORRAINE WINDOW TREATMENT INSTALLER Facility:[facility] Start: 07-22-2023 End: 07-22-2023 ambulatory EMILY LORRAINE WINDOW TREATMENT INSTALLER Facility:[facility] Start: 06-07-2023 End: 06-07-2023 ambulatory EMILY LORRAINE WINDOW TREATMENT INSTALLER Facility:[facility] Start: 03-06-2023 End: 03-06-2023 ambulatory CHRISTINA K PRISTAS DO Facility:[facility] Start: 03-06-2023 End: 03-06-2023 ambulatory CHRISTINA K PRISTAS DO Facility:[facility] Start: 01-19-2023 End: 01-19-2023 ambulatory EMILY LORRAINE WINDOW TREATMENT INSTALLER Facility:[facility] Start: 11-20-2022 ambulatory EMILY LORRAINE WINDOW TREATMENT INSTALLER Facilit y:[facility] Start: 11-18-2022 End: 11-18-2022 ambulatory EMILY LORRAINE WINDOW TREATMENT INSTALLER Facility:[facility] Start: 05-01-2022 Telephone encounter Charity Barrera MD Work Phone: [facility] Comment on above: Orders Start: 04-07-2022 Refill Charity Gomez MD Work Phone: [facility] Comment on above: Refill Request Start: 04-03-2022 Patient encounter procedure [facility] Provider [facility] Department Start: 02-15-2022 Refill Charity Gomez MD Work Phone: [facility] Comment on above: Refill Request Start: 01-20-2022 Refill Ana Mcfadden i, APRN.WINDOW TREATMENT INSTALLER Work Phone: [facility] Comment on above: Refill Request Start: 01-10-2022 End: 01-10-2022 ambulatory CHARITY BARRERA Facility:[facility] Start: 01-10-2022 End: 01-10-2022 Patient encounter procedure Jasmin Santoyo APRNSteveWINDOW TREATMENT INSTALLER Work Phone: [facility] Comment on above: COVID (Primary Dx); URI with cough and congestion Start: 12-23-2021 End: 12-23-[address] Charity Barrera Work Phone: Work Phone: Start: 12-23-2021 End: 12-23-[address] Charity Barrera Work Phone: [facility] Start: 12-21-2021 Refill Charity Gomez MD Work Phone: [facility] Comment on above: Refill Request Start: 11-21-2021 Refill Charity Gomez MD Work Phone: [facility] Comment on above: Refill Request Start: 10-31-2021 End: 10-31-2021 ambulatory CHARITY BARRERA Facility:[facility] Start: 10-20-2021 Refill Charity Gomez MD Work Phone: [facility] Comment on above: Refill Request Start: 10-17-2021 Refill Charity Gomez MD Work Phone: [facility] Comment on above: Refill Request Start: 09-22-2021 End: 09-22-[address] 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) ([facility]) Start: 08-23-2021 Refill Charity Gomez MD Work Phone: [facility] Comment on above: Refill Request Start: 08-16-2021 End: 08-16-2021 Patient encounter procedure Charity Lucho -Sleep Lab Start: 08-04-2021 Non-patient / Non-visit Charity ogden -[facility] Start: 08-04-2021 End: 08-04-2021 Patient encounter procedure [facility]-Cardiovascula r Services Start: 07-29-2021 Refill Charity Gomez MD Work Phone: [facility] Comment on above: Refill Request Start: 07-25-2021 End: 07-25-2021 Patient encounter procedure [facility]-Laboratory, [place] Start: 07-25-2021 Patient encounter status Charity [facility] Work Phone: Start: 07-25-2021 End: 07-25-2021 Admission to same day surgery center [facility] Start: 07-25-2021 End: 07-25-2021 Patient encounter procedure [facility] Start: 05-17-2021 End: 05-17-2021 Patient encounter procedure [facility]-Pulmonary Medicine [facility] Start: 04-23-2021 End: 04-23-2021 Emergency department patient visit [facility]-Emergency Department Start: 04-15-2021 End: 04-15-2021 Patient encounter procedure [facility]-Radiology, [place] Procedures Date Procedure Procedure Detail Performing Clinician Start: 12-23-[address] Saroj Barrera Work Phone: Start: 08-04-2021 Cardiovascular stres s test using pharmacologic stress agent Charity Barrera Start: 04-23-2021 Plain chest X-ray Olga Barrera Start: 04-15-2021 Radiologic examinati on of knee Charity Barrera Start: 07-27-2020 Mammography Charity banks MD Work Phone: Start: 11-14-2019 Colonoscopy Charity banks MD Work Phone: Plan of Treatment Date Care Activity Detail Author Start: 11-13-2022 Colonoscopy COLONOSCOPY [facility] Start: 11-13-2022 COLORECTAL CANCER SCREENING COLORECTAL CANCER SCREENING [facility] Start: 10-31-2022 Hepatitis B surface antibody level LDL CHOLESTEROL [facility] Start: 09-07-2022 ANNUAL PCP TEAM CHRONIC DISEASE VISIT ANNUAL PCP TEAM CHRONIC DISEASE VISIT [facility] Start: 02-05-2022 DEPRESSION ASSESSMENT DEPRESSION ASSESSMENT [facility] Start: 01-30-2022 Hemoglobin A1c/Hemoglobin.total in Blood HBA1C [facility] Start: 10-06-2021 Influenza vaccination INFLUENZA (#1) [facility] Start: 09-07-2021 End: 11-07-2021 Comprehensive metabolic 2000 panel - Serum or Plasma COMP METABOLIC PANEL Lab Routine Primary hypertension Pure hypercholesterolemia 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) ([facility]) Expected: 09/07/2021, Expires: 11/07/2021 [facility] Work Phone: Comment on above: Expected: 09/07/2021, Expires: 2 Start: 09-07-2021 End: 11-07-2021 Hemoglobin A1c in Blood HGB A1C Lab Routine 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) ([facility]) Expected: 09/07/2021, Expires: 11/07/2021 [facility] Work Phone: Comment on above: Expected: 09/07/2021, Expires: 2 Start: 09-07-2021 End: 11-07-2021 Lipid 1996 panel - Serum or Plasma LIPID PANEL BASIC Lab Routine Pure hypercholesterolemia Expected: 09/07/2021, Expires: 11/07/2021 [facility] Work Phone: Comment on above: Expected: 09/07/2021, Expires: 2 Start: 07-27-2021 Mammography MAMMOGRAM [facility] Start: 04-23-2021 Work Phone: Start: 02-05-2021 DEPRESSION ASSESSMENT DEPRESSION ASSESSMENT [facility] Start: 12-15-2020 COVID-19 VACCINE (2 - Pfizer series) COVID-19 VACCINE (2 - Pfizer series) [facility] Start: 07-20-2016 PAP TESTING PAP TESTING [facility] Start: 12-05-2015 SHINGRIX VACCINE (1 of 2) SHINGRIX VACCINE (1 of 2) [facility] Start: 2010 COLOGUARD (FIT-DNA) COLOGUARD (FIT-DNA) [facility] Start: 2010 Colonoscopy COLONOSCOPY [facility] Start: 2010 COLORECTAL CANCER SCREENING COLORECTAL CANCER SCREENING [facility] Start: [address] COLONOGRAPHY [facility] Start: 2010 DIABETES SCREEN DIABETES SCREEN [facility] Start: 2010 FECAL OCCULT BLOOD FECAL OCCULT BLOOD [facility] Start: 2010 LIPID SCREEN LIPID SCREEN [facility] Start: 2010 SIGMOIDOSCOPY SIGMOIDOSCOPY [facility] Start: 12-05-1995 HPV TESTING HPV TESTING [facility] Start: 1984 HEPATITIS B (1 of 3 - Risk 3-dose series) HEPATITIS B (1 of 3 - Risk 3-dose series) [facility] Start: 1984 Urine microalbumin profile DTAP,TDAP,TD (1 - Tdap) [facility] Start: 12-05-1983 ANNUAL PCP TEAM CHRONIC DISEASE VISIT ANNUAL PCP TEAM CHRONIC DISEASE VISIT [facility] Start: 12-05-1983 BP CONTROLLED (<130/80) BP CONTROLLED (<130/80) [facility] Start: 12-05-1983 Hepatitis B surface antibody level LDL CHOLESTEROL [facility] Start: 12-05-1983 HEPATITIS C SCREENING HEPATITIS C SCREENING [facility] Start: 12-05-1983 HIV SCREENING HIV SCREENING [facility] Start: 12-05-1983 SPIROMETRY SPIROMETRY [facility] Start: 1977 Adult depression screening assessment DEPRESSION SCREENING [facility] Start: 12-05-1975 3 comp foot exam completed DIABETIC FOOT EXAM [facility] Start: 12-05-1975 Hepatitis B screening URINE ALBUMIN:CREATININE RATIO [facility] Start: 12-05-1975 Hepatitis C antibody, confirmatory test DILATED RETINAL EXAM [facility] Start: 12-05-1971 PNEUMOCOCCAL (1 - PCV) PNEUMOCOCCAL (1 - PCV) [facility] Start: 1970 COVID-19 VACCINE (#1) COVID-19 VACCINE (#1) [facility] Start: 1970 Hemoglobin A1c/Hemoglobin.total in Blood HBA1C [facility] Start: 06-04-1966 COVID-19 VACCINE (#1) COVID-19 VACCINE (#1) [facility] Start: 1965 HEPATITIS B (1 of 3 - 3-dose series) HEPATITIS B (1 of 3 - 3-dose series) [facility] Patient Education Supraventricular Tachyc ardia Work Phone: Patient referral [facility] Work Phone: [facility] Payers Date Payer Category Payer Self-pay [id number] 2023 Unknown [id number] 2020 Unknown MMO MMO [employer] [id number] 2020-Present [phone] [address] [place] [address] PPO [id number] 2020 Unknown [id number] 2020 Unknown [id number] [id number] 2014 Unknown [id number] 1965 Unknown [id number] 2.16.840.1.044981.3.579.2.159 1965 Unknown [id number] 2.16.840.1.458736.3.579.2.159 1965 Unknown [id number] 2.16.840.1.169046.3.579.2.159 1965 Unknown [id number] .840.1.178879.3.579.2.159 1965 Unknown [id number] 2.840.1.752136.3.579.2.159 1965 Unknown [id number] .840.1.451625.3.579.2.159 1965 Unknown [id number] .840.1.039780.3.579.2.159 Unknown [id number] .840.1.761464.3.579.2.462 Unknown [id number] 2.840.1.908420.3.579.2.462 Unknown [id number] 840.1.206534.3.579.2.462 Unknown [id number] .840.1.753273.3.579.2.462 Unknown [id number] .840.1.959667.3.579.2.462 Unknown [id number] 840.1.182046.3.579.2.462 Unknown [id number] .840.1.730329.3.579.2.462 Unknown [id number] 840.1.561689.3.579.2.462 Unknown [id number] .840.1.476063.3.579.2.462 Unknown [id number] .840.1.180767.3.579.2.462 Unknown [id number] .840.1.340930.3.579.2.462 Unknown [id number] .840.1.121889.3.579.2.462 Unknown [id number] 2.840.1.153001.3.579.2.462 Unknown [id number] 2.16.840.1.411625.3.579.2.462 Unknown [id number] 2.16.840.1.299660.3.579.2.462 Unknown [id number] 2.16.840.1.773311.3.579.2.462 Unknown [id number] 2.16.840.1.582367.3.579.2.462 Unknown [id number] 2.16.840.1.386257.3.579.2.462 Unknown [id number] 2.16.840.1.703619.3.579.2.462 Social History Date Type Detail Facility Start: 08-04-2014 End: 01-10-2022 Tobacco smoking status UTIS Ex-smoker [facility] Start: 02-05-2014 History of tobacco use Smoker [facility] Start: 10-19-2020 End: 01-10-2022 Alcohol intake Current non-drinker of alcohol (finding) [facility] Start: 1965 Sex Assigned At Not on file [facility] Start: 07-25-2021 End: 09-22-2021 Tobacco smoking status [facility] Unknown if ever smoked Work Phone: Start: 11-16-2019 None [facility] Work Phone: Start: 11-16-2019 Spouse/ Signif icant Other;With Family Work Phone: Start: 11-17-2019 Cigarettes [facility] Work Phone: Start: 1965 Sex Assigned At Female [facility] Work Phone: Start: 08-28-2021 End: 09-07-2021 Exposure to SARS-CoV-2 (event) Not sure [facility] Start: 02-05-2014 History of tobacco use Cigarette Smoker [facility] Work Phone: Start: 08-04-2014 End: 01-10-2022 Tobacco use and exposure Smokeless tobacco non-user [facility] Work Phone: Medical Equipment Procedure Code Equipment Code Equipment Origin al Text Equipment Identifier Dates Start: 05-03-2020 End: 11-21-2021 Comment on above: USE DAILY AND NEE DED USE 1 STRIP DIREC KARO ONCE A DAY Mental Status Date Assessment Result Facility 04-23-2021 Cognitive function Level Of Cons ciousness Awake;Alert;Appropriate;Follow s Commands Work Phone: Clinical Notes 08-23-2021 to 12-18-2023 Telephone Encounter - Charity Barrera MD - 05/01/2022 3:21 PM EDTTelephone Encounter - Sabrina Benitez [employer]IPE - 05/01/2022 11:30 AM EDTTelephone Encounter - Sabrina Benitez [employer] - 04/07/2022 12:56 PM EST Note Date & Type Note Facility 12-18-2023 Note [facility] Medical Records Department [address] [place] [address] Discharge Summary 12/18/23 0914 MR#: [id number] Acct: [id number] Name: LOUISE ALLEN Rep #: [id number] : 1965 58 From: Deonte Houser MD PCP: Dr. Fabi Cisneros MD Status:DIS IN Location: ICU [id number] Providers Date of Admission: 12/16/23 Date of Discharge: 12/17/23 Primary Care Physician: Dr. Fabi Cisneros MD Consultations 12/16/23 11:48 Consult: Cardiology Routine Consulting Provider: Jones Sultana Reason for Consult: SVT EMERGENT Consult: No Notified: Yes Date Notified: 12/16/23 Time Notified: 11:49 Method of Notification: Verbal Reason For Visit: TROPONIN ELEVATION Diagnosis Discharge Diagnosis (1) Supraventricular tachycardia: Status: Chronic Code(s): I47.1 - Supraventricular tachycardia (2) Elevated troponin I level: Status: Acute Code(s): R79.89 - Other specified abnormal findings of blood chemistry (3) Essential hypertension: Status: Acute Code(s): I10 - Essential (primary) hypertension Medications at Discharge Home Medications albuterol sulfate 2.5 mg/3 mL (0.083 %) solution for nebulization 2.5 mg (3 mL) inhalation Q4H PRN Sob /Or Wheezing #180 mL 09/22/21 albuterol sulfate 90 mcg/actuation aerosol inhaler 1 - 2 puff inhalation Q4H PRN PRN Wheezing #8.5 grams 09/22/21 multivitamin (Daily Multi-Vitamin tablet) 1 tab PO DAILY 08/16/22 metoprolol tartrate 50 mg tablet See Rx Instructions .Route .COMPLEX #180 TABLETS 03/23/23 trazodone 50 mg tablet 75 mg (1.5 x 50 mg) PO QHS #45 tabs 04/03/23 duloxetine 60 mg capsule,delayed release 60 mg PO BID #180 caps 08/30/23 hydroxyzine HCl 25 mg tablet 25 mg PO Q8H PRN anxiety #270 tabs 11/05/23 lamotrigine 100 mg tablet 100 mg PO QDAY #30 tabs 11/06/23 semaglutide 1 mg/dose (4 mg/3 mL) subcutaneous pen injector (Ozempic) 1 mg subcut TH 12/02/23 tramadol 50 mg tablet 50 mg PO TID PRN PRN pain 12/02/23 Hospital Course Operations None Procedures 2-D Echocardiogram and Cardiac catheterization Summary of Care Provided Minutes Spent on Discharge: 33 Hospital Course: Per HPI: LOUISE ALLEN, is a 58 F who presented to the emergency department at early in the morning of 12/16/2019 for complaining of chest discomfort and palpitations. Symptoms started about 6 hours prior to presentation. Patient has a known history of SVT and tried several vagal maneuvers without any success. She also tried carotid artery massage as well without any success. Patient has a known history of SVT which initially was diagnosed back in 2019. She was referred to EP at [facility] and plan is to perform radiofrequency ablation after she had weight loss. Patient states she is down about 150 pounds now and continues to lose weight with the goal of having ablation done. She has had intermittent episodes since that 2019 event. Upon presentation she was immediately noted to be hypotensive with heart rates from 160-170. Patient was cardioverted but remains somewhat hypotensive and troponin was noted to be elevated. Case was discussed with Dr. Sultana who suggested admission. At the time of my evaluation, the patient was asymptomatic and heart rate remained in sinus rhythm. Vital signs on presentation showed a temperature of 97.8, heart rate 163, respiratory rate 18, blood pressure was 60/34 with a pulse ox of 100% on room air. After cardioversion heart rate was 81 with blood pressure 85/65 at the time of admission. CBC was overall unremarkable. Coags are normal. Chemistry panel was overtly unremarkable with slight hyperglycemia showing a blood glucose level 120. Initial troponin was 393 with a subsequent delta troponin at 1158. Initial EKG showed narrow complex tachycardia with a rate of 165 and normal intervals with follow-up EKG showing sinus rhythm, normal axis, normal intervals and ST-T wave changes concerning for acute ischemia. Given her persistent hypotension and risk for SVT she was admitted to the ICU. Hospital Course: 1. SVT with acute hypotension and chest pain with troponin elevation due to demand ischemia from the SVT???58-year-old female with a history of SVT presented to the hospital with hypotension, dizziness and was found to be in SVT. On presentation she was cardioverted in the emergency room back in a normal sinus rhythm. Cardiology was consulted and they recommended admission with a heart cath which was done on the day of discharge. Coronary arteries were clean and cardiology is recommending continuation of her beta-mikki at 50 mg p.o. twice daily secondary to some hypotension they were hesitant to increase the dose and they recommended outpatient follow-up with their office to set up an EP visit. I discussed with her the plan for discharge and she expressed understanding Erisman of going (more content not included)... 05-01-2022 Miscellaneous Notes Patient is overdue for [...] 2022 11:43 AM documented in this encounter [facility] 04-07-2022 Miscellaneous Notes LAST OFFICE [...] 2022 1:05 PM documented in this encounter [facility] 02-17-2022 Miscellaneous Notes Last Office Visit: 05-23-2021 Next Scheduled Office Visit: None scheduled Requested Prescriptions Pending Prescriptions Disp Refills DULoxetine (CYMBALTA) 30 mg capsule [Pharmacy Med Name: DULOXETINE HCL DR 30 MG CAP] 270 capsule 3 Sig: TAKE 3 CAPSULES BY MOUTH ONCE A DAY DIRECTED Isabel Jara LPN February 17, 2022 10:55 AM documented in this encounter [facility] 01-23-2022 Miscellaneous Notes Pharmacy called requesting the following refill. Requested Prescriptions Pending Prescriptions Disp Refills clonazePAM (KLONOPIN) 0.5 mg tablet [Pharmacy Med Name: CLONAZEPAM 0.5 MG TABLET] 90 tablet 1 Sig: TAKE 1 TABLET BY MOUTH THREE TIMES DAILY NEEDED FOR ANXIETY FOR UP TO 60 DAYS. Patient last appointment: 12/21/2021 Patient Phone numbers: [phone] (home) Request is for script(s) to be escript to pharmacy. Sadia Odell LPN documented in this encounter [facility] 01-10-2022 Note HNO ID: [id number] Author: Jasmin Santoyo APRN.WINDOW TREATMENT INSTALLER Service: ? Author Type: Nurse Practitioner Type: Progress Notes Filed: 01/10/2022 10:48 AM Note Text: Subjective The history is provided by the patient. No speech language pathologist assistant was used. HPI Louise Allen is a 56 year old female who [...] have confirmed and edited as necessary, the [facility] Review of Systems Constitutional: Positive for malaise/fatigue. [...] normal. Nirmatrelvir/Ritonavir (Paxlovid) Eligibility and Patient Discussion [facility] Formulary Restriction Criteria: Adult outpatients [...] and that it (more content not included)... [facility] 01-10-2022 Instructions Jasmin Santoyo APRN.WINDOW TREATMENT INSTALLER - 01/10/2022 10:33 AM EST Rest, increase water intake Tylenol as needed for fever or pain. Salt water gargles, chloraseptic spray or lozenges as needed for sore throat. Warm beverages, honey. Nasal saline spray as needed Cool mist humidifier at night [facility] FACT SHEET FOR PATIENTS, PARENTS, AND CAREGIVERS EMERGENCY USE AUTHORIZATION (EUA) OF PAXLOVID FOR CORONAVIRUS DISEASE 2019 (COVID-19) You are being given this Fact Sheet because your healthcare provider believes it is necessary to provide you with PAXLOVID for the treatment of maiz-ex-jsegccxb coronavirus disease (COVID-19) caused by the SARS-CoV-2 [...] virus. COVID-19 illnesses have ranged from very vmzr-el-vvoxcv, including illness resulting in . While information [...] is an investigational medicine used to treat ocuj-vs-vjmeeefo COVID-19 in adults and children [12 years [...] of using PAXLOVID to treat people with nebi-qg-bwmmbpor COVID-19. The FDA has authorized the emergency use of PAXLOVID for the treatment of nvqj-zc-lasplzap COVID-19 in adults and children [12 years [...] the medicines you take, including prescription and gqjg-brw-yznslgm medicines, vitamins, and herbal supplements. Some medicines [...] oral midazolam Apalutamide Carbamazepine, phenobarbital, phenytoin Rifampin Wortham s Wort (hypericum perforatum) Taking PAXLOVID with [...] (remdesivir) is FDA-approved for the treatment of yzud-oa-kmcgqluc COVID-19 in certain adults and children. Talk with your doctor to see if Veklury is appropriate for you. Like PAXLOVID, FDA may also allow for the emergency use of other medicines to treat people with COVID-19. Go to https://www.fda.gov/emergency-prep aredness-andresponse/auz-fucrv-egn dalchjv-ptt-odexps-framework/emerg rorn-xwg-ijwrfymerxmnb for information on the emergency use of [...] if I am or ? There is ethnology professor treating women or mothers with PAXLOVID. For [...] not go away. Report side effects to [facility] [employer] [facility] [employer] at www.[employer].gov/[employer] or call 0-224-UPZ7722 or you can report side effects to [employer] at the contact information provided below. Website Fax number Telephone number [employer] How should I store PAXLOVID? Store PAXLOVID [...] (EUA). The EUA is supported by a [place] of Health and Human Service (HHS) declaration that circumstances exist to justify the emergency use of drugs and biological products during the COVID-19 pandemic. PAXLOVID for the treatment of erjz-qn-hyleqpta COVID-19 in adults and children [12 years [...] telephone number provided below. Website Telephone number wwwHumble Bundle[employer]CKBE89lpxpUg.com (8-315-X84-IIYD) You can also go to [employer] or call for more information. Pfizer Distributed by [employer] [place] [address] [id number] Revised: 22 April 2021 documented in this encounter [facility] 01-10-2022 History of Present illness Narrative Subjective The history is provided by the patient. No speech language pathologist assistant was used. CORNELIO Allen is a 56 year old female who [...] have confirmed and edited as necessary, the [facility] Review of Systems Constitutional: Positive for malaise/fatigue. [...] normal. Nirmatrelvir/Ritonavir (Paxlovid) Eligibility and Patient Discussion [facility] Formulary Restriction Criteria: Adult outpatients [...] the Fact Sheet for Patients, Parents and Caregivers. The patient was also instructed that in [...] 2022 10:32 AM documented in this encounter [facility] 12-21-2021 Miscellaneous Notes Patient called requesting the following refill. Requested Prescriptions Pending Prescriptions Disp Refills clonazePAM (KLONOPIN) 0.5 mg tablet 90 tablet 0 Sig: Take 1 tablet by mouth three times daily as needed for anxiety for up to 60 days. Patient last appointment: Visit date not found Patient Phone numbers: [phone] (home) Request is for script(s) to be escript to pharmacy. Sadia Odell LPN documented in this encounter [facility] 11-21-2021 Miscellaneous Notes Pharmacy MyChart message requesting the following refill. Requested Prescriptions Pending Prescriptions Disp Refills TRUE METRIX GLUCOSE TEST STRIP test strip [Pharmacy Med Name: TRUE METRIX GLUCOSE TEST STRIP] 100 Strip 4 Sig: USE 1 STRIP DIRECTED ONCE A DAY Patient last appointment: 11/01/2021 Patient Phone numbers: [phone] (home) Request is for script(s) to be escript to [facility] pharmacy. Shani Colon LPN documented in this encounter [facility] 10-20-2021 Miscellaneous Notes Requested Prescriptions Pending Prescriptions Disp Refills glimepiride (AMARYL) 2 mg tablet [Pharmacy Med Name: GLIMEPIRIDE 2 MG TABLET] 90 tablet 3 Sig: TAKE 1 TABLET BY MOUTH EVERY DAY Isabel Jara LPN October 20, 2021 8:41 AM documented in this encounter [facility] 10-17-2021 Miscellaneous Notes Requested Prescriptions Pending Prescriptions Disp Refills clonazePAM (KLONOPIN) 0.5 mg tablet 90 tablet 1 Sig: Take 1 tablet by mouth three times daily as needed for anxiety for up to 60 days. Isabel Jara LPN October 17, 2021 2:55 PM documented in this encounter [facility] 09-07-2021 Note HNO ID: [id number] Author: Charity Barrera MD Service: ? Author Type: Physician Type: Progress Notes Filed: 09/07/2021 5:05 PM Note Text: This note was created using [employer]. Subjective Louise Allen is a 55 year old female who [...] (Temporal) Resp 16 Ht 167.6 cm (5' 6) Wt (!) 176.4 kg (389 lb) LMP [...] normal. Behavior: Behavior normal. Assessment and Plan Louise was seen today for follow up. Diagnoses and all orders for this visit: Primary hypertension - COMP METABOLIC PANEL; Future Atrial fibrillation, persistent (HCC) Fibromyalgia Moderate persistent asthma without complication Pure hypercholesterolemia - COMP METABOLIC PANEL; Future - LIPID PANEL BASIC; Future 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) ([facility]) - HGB A1C; Future - COMP [...] Wellbutrin to Cymbalta. Follow-up in 1 month. [facility] 09-07-2021 Note HNO ID: [id number] Author: Charity Barrera MD Service: ? Author Type: Physician Type: Progress Notes Filed: 09/07/2021 5:05 PM Note Text: This note was created using [employer]. Allison Allen is a 55 year old female. HPI Review of Systems Objective BP 130/90 (BP Site: Left Arm, BP Cuff Size: Large Adult) Pulse 80 Temp 36 ?C (96.8 ?F) (Temporal) Resp 16 Ht 167.6 cm (5' 6) Wt (!) 176.4 kg (389 lb) LMP 06/05/2014 SpO2 96% BMI 62.79 kg/m? Physical Exam Assessment and Plan [facility] 09-07-2021 History of Present illness Narrative This note was created using [employer]. Allison Allen is a 55 year old female who [...] (Temporal) Resp 16 Ht 167.6 cm (5' 6) Wt (!) 176.4 kg (389 lb) LMP [...] normal. Behavior: Behavior normal. Assessment and Plan Louise was seen today for follow up. Diagnoses [...] 1 month. This note was created using [employer]. Subjective Louise Allen is a 55 year old female. HPI Review of Systems Objective BP 130/90 (BP Site: Left Arm, BP Cuff Size: Large Adult) Pulse 80 Temp 36 C (96.8 F) (Temporal) Resp 16 Ht 167.6 cm (5' 6) Wt (!) 176.4 kg (389 lb) LMP 06/05/2014 SpO2 96% BMI 62.79 kg/m Physical Exam Assessment and Plan documented in this encounter [facility] 08-23-2021 Miscellaneous Notes Summary: Rx refill [facility] pharmacy paper request sent: Pending Prescriptions Disp Refills ALBUTEROL SULFATE HFA 90 MCG/ACTUATION AEROSOL INHALER 1 Inhaler 3 Sig: Inhale 2 Puffs as instructed every 6 hours as needed for wheezing/shortness of breath. DARLING: No Isabel Jara LPN August 23, 2021 3:26 PM documented in this encounter [facility] Evaluation note Diagnosis RAJESH (generalized anxiety disorder)- Primary Generalized anxiety disorder [facility] Diagnosis Onset Date Resolution Status Morbid obesity acute Nicotine dependence, cigarettes, in remission acute TAMMI (obstructive sleep apnea) acute Asthma chronic Essential hypertension acute HLD (hyperlipidemia) acute Preoperative cardiovascular examination acute Supraventricular tachycardia [facility] Work Phone: Evaluation note* Diagnosis Primary hypertension- Primary Unspecified essential hypertension Atrial fibrillation, persistent (HCC) Atrial fibrillation Fibromyalgia Mylagia and myositis, unspecified Moderate persistent asthma without complication Unspecified asthma Pure hypercholesterolemia 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) ([facility]) [facility] Diagnosis RAJESH (generalized anxiety disorder) Generalized anxiety disorder [facility] Diagnosis Type 2 diabetes mellitus with hyperglycemia ([facility]) Type II or unspecified type diabetes mellitus without mention of complication, not stated as uncontrolled [facility] Diagnosis RAJESH (generalized anxiety disorder) Generalized anxiety disorder [facility] Diagnosis Onset Date Resolution Status Morbid obesity acute TAMMI (obstructive sleep apnea) acute Smoking greater than 20 pack years acute Asthma chronic Work Phone: Evaluation note* Diagnosis COVID- Primary URI with cough and congestion documented in this encounter [facility] Summary Purpose Family History No Family History Records Found Relationship Condition Age at Onset Recorded Date/T kristy father Diabetes mellitus Unknown Malignant neoplasm of colon Unknown Malignant neoplasm Unknown mother Hypertension Unknown Arthritis Unknown Mental disorder Unknown Advance Directives No Advanced Directives Records Found Advance Directive Response Recorded Date/ Time Living Will No April 23, 2021 12:11pm Power of Post Graduate Intern No April 23 12:11pm Advance Directive Response Recorded Date/ Time Living Will No April 23, 2021 11:11am Power of Post Graduate Intern No April 23 11:11am Chief Complaint and Reason for Visit Chief Complaint RIGHT KNEE PAIN PALPITATIONS 3 M FU OVERDUE FOR F/U (PFM PT, PREV NN) SVT, PREOP CLEARANCE *NAGAGOTHI* SVT, PREOP CLEARANCE *NAGAGOTHI* Reason for Visit Morbid obesity Nicotine dependence, cigarettes, in remission TAMMI (obstructive sleep apnea) Asthma Essential hypertension HLD (hyperlipidemia) Preoperative cardiovascular examination Supraventricular tachycardia Chief Complaint 3 M FU OVERDUE FOR F/U (PFM PT, PREV NN) SVT, PREOP CLEARANCE *NAGAGOTHI* SVT, PREOP CLEARANCE *NAGAGOTHI* TAMMI; BIPAP S *DEVICE TAGGED* Reason for Visit Morbid obesity Nicotine dependence, cigarettes, in remission TAMMI (obstructive sleep apnea) Asthma Essential hypertension HLD (hyperlipidemia) Preoperative cardiovascular examination Supraventricular tachycardia Chief Complaint 3 M FU NICOTINE DEP Reason for Visit Morbid obesity TAMMI (obstructive sleep apnea) Smoking greater than 20 pack years Asthma Additional Source Comments INFORMATION SOURCE (unrecogn ized section and content) DATE CREATED AUTHOR 11/24/2019 [facility] ([place]) DATE CREATED AUTHOR AUTHOR'S ORGANIZ ATION 08/07/2020 [facility] DATE CREATED AUTHOR AUTHOR'S ORGANIZ ATION 09/26/2020 [facility] DATE CREATED AUTHOR AUTHOR'S ORGANIZ ATION 01/11/2022 [facility] DATE CREATED AUTHOR AUTHOR'S ORGANIZ ATION 05/03/2022 [facility] DATE CREATED AUTHOR AUTHOR'S ORGANIZ ATION 11/21/2022 [facility] DATE CREATED AUTHOR AUTHOR'S ORGANIZ ATION 12/22/2023 [facility] DATE CREATED AUTHOR AUTHOR'S ORGANIZ ATION 07/27/2024 [facility] Source Comments (unrecognize d section and content) In the event this informatio n is protected by the Federal Confidentiality of Alcohol and Drug Abuse Patient Records regulations: The Federal rules restrict any use of the information to criminally investigate or prosecute any alcohol or drug abuse patient.[facility] the event this information is protected by the Federal Confidentiality of Alcohol and Drug Abuse Patient Records regulations: The Federal rules restrict any use of the information to criminally investigate or prosecute any alcohol or drug abuse patient.[facility] the event this information is protected by the Federal Confidentiality of Alcohol and Drug Abuse Patient Records regulations: The Federal rules restrict any use of the information to criminally investigate or prosecute any alcohol or drug abuse patient.[facility] the event this information is protected by the Federal Confidentiality of Alcohol and Drug Abuse Patient Records regulations: The Federal rules restrict any use of the information to criminally investigate or prosecute any alcohol or drug abuse patient.[facility] the event this information is protected by the Federal Confidentiality of Alcohol and Drug Abuse Patient Records regulations: The Federal rules restrict any use of the information to criminally investigate or prosecute any alcohol or drug abuse patient.[facility] the event this information is protected by the Federal Confidentiality of Alcohol and Drug Abuse Patient Records regulations: The Federal rules restrict any use of the information to criminally investigate or prosecute any alcohol or drug abuse patient.[facility] the event this information is protected by the Federal Confidentiality of Alcohol and Drug Abuse Patient Records regulations: The Federal rules restrict any use of the information to criminally investigate or prosecute any alcohol or drug abuse patient.[facility] the event this information is protected by the Federal Confidentiality of Alcohol and Drug Abuse Patient Records regulations: The Federal rules restrict any use of the information to criminally investigate or prosecute any alcohol or drug abuse patient.[facility] the event this information is protected by the Federal Confidentiality of Alcohol and Drug Abuse Patient Records regulations: The Federal rules restrict any use of the information to criminally investigate or prosecute any alcohol or drug abuse patient.[facility] the event this information is protected by the Federal Confidentiality of Alcohol and Drug Abuse Patient Records regulations: The Federal rules restrict any use of the information to criminally investigate or prosecute any alcohol or drug abuse patient.[facility] the event this information is protected by the Federal Confidentiality of Alcohol and Drug Abuse Patient Records regulations: The Federal rules restrict any use of the information to criminally investigate or prosecute any alcohol or drug abuse patient.[facility] the event this information is protected by the Federal Confidentiality of Alcohol and Drug Abuse Patient Records regulations: The Federal rules restrict any use of the information to criminally investigate or prosecute any alcohol or drug abuse patient.[facility] the event this information is protected by the Federal Confidentiality of Alcohol and Drug Abuse Patient Records regulations: The Federal rules restrict any use of the information to criminally investigate or prosecute any alcohol or drug abuse patient.[facility] Reason for Visit (unrecogniz ed [...] Care Teams (unrecognized sec tion and content) Vice President Of Consulting Services Relationship Specialty Start Date End Date Charity Barrera MD [address] [place], [place] [id number] [phone] PCP - General Family Practice 07/15/18 Chayo Harper MD Primary Staff Physician Cardiology 10/20/20 Vice President Of Consulting Services Relationship Specialty Start Date End Date Charity Barrera MD [address] [place] [address] PCP - General Family Practice 07/15/18 Chayo Harper MD Primary Staff Physician Cardiology 10/20/20 Vice President Of Consulting Services Relationship Specialty Start Date End Date Charity Barrera MD [address] [place] [address] PCP - General Family Practice 07/15/18 Chayo Harper MD Primary Staff Physician Cardiology 10/20/20 Vice President Of Consulting Services Relationship Specialty Start Date End Date Charity Barrera MD [address] [place] [address] PCP - General Family Practice 07/15/18 Chayo Harper MD Primary Staff Physician Cardiology 10/20/20 Vice President Of Consulting Services Relationship Specialty Start Date End Date Charity Barrera MD [address] [place] [address] PCP - General Family Practice 07/15/18 Chayo Harper MD Primary Staff Physician Cardiology 10/20/20 Vice President Of Consulting Services Relationship Specialty Start Date End Date Charity Barrera MD [address] [place] [address] PCP - General Family Medicine 07/15/18 Chayo Harper MD Primary Staff Physician Cardiology 10/20/20 Vice President Of Consulting Services Relationship Specialty Start Date End Date Charity Barrera MD [address] [place] [address] PCP - General Family Medicine 07/15/18 Chayo Harper MD Primary Staff Physician Cardiology 10/20/20 Vice President Of Consulting Services Relationship Specialty Start Date End Date Charity Barrera MD [address] [place] [address] PCP - General Family Medicine 07/15/18 Chayo Harper MD [address] [place] [address] Primary Staff Physician Cardiology 10/20/20 Vice President Of Consulting Services Relationship Specialty Start Date End Date Charity Barrera MD [address] [place] [address] PCP - General Family Medicine 07/15/18 Chayo Harper MD [address] [place] [address] Primary Staff Physician Cardiology 10/20/20 Vice President Of Consulting Services Relationship Specialty Start Date End Date Charity Barrera MD [address] [place] [address] PCP - General Family Medicine 07/15/18 Chayo Harper MD [address] [place] [address] Primary Staff Physician Cardiology 10/20/20 Vice President Of Consulting Services Relationship Specialty Start Date End Date Charity Barrera MD [address] [place] [address] PCP - General Family Medicine 07/15/18 Chayo Harper MD [address] [place] [address] Primary Staff Physician Cardiology 10/20/20 Vice President Of Consulting Services Relationship Specialty Start Date End Date Charity Barrera MD [address] [place] [address] PCP - General Family Medicine 07/15/18 Chayo Harper MD [address] [place] [address] Primary Staff Physician Cardiology 10/20/20 Goals (unrecognized section and content) Goals may be documented in a n alternate sectionGoals may be documented in an alternate sectionGoals may be documented in an alternate sectionGoals may be documented in an alternate section FOR RECORDS PERTAINING TO PATIENTS WHO ARE [...] BE BASED ON THE PRIMARY CLINICAL RECORDS. [facility] provides no warranty or guarantee of the accuracy or completeness of information in this document.
== END | disposition home or self-care (01) ==
LOC: LAB 13:21
PROVIDERS: PCP Internal Medicine
DX: E66.01 Morbid (severe) obesity due to excess calories (principal); E11.9 Type 2 diabetes mellitus without complications; K90.9 Intestinal malabsorption, unspecified; E55.9 Vitamin D deficiency, unspecified; F32.A Depression, unspecified; K21.9 Gastro-esophageal reflux disease without esophagitis; G47.33 Obstructive sleep apnea (adult) (pediatric); Z98.84 Bariatric surgery status; M54.12 Radiculopathy, cervical region
CPT/HCPCS: 36415; 72040; 80053; 80061; 82306; 82607; 83036; 83540; 83550; 84443; 85025